=== PATIENT | male | born 1950 | race Caucasian/White ===

== ENCOUNTER → 2017-06-02 | Outpatient (CLI) | payer MEDICARE, BC ==
[~2017-06-02] MED LIST: HYDR50TA6 PO; LISI10TA2 PO; METO-247 PO; prednisone taper
--- NOTE | 2017-06-02 10:33 | KCIC ---
2 views left elbow radiograph 06/02/2017 CLINICAL INDICATION: Left elbow pain and swelling for one week. COMPARISON: None. FINDINGS: No acute fracture or traumatic malalignment. Joint spaces are maintained. No significant joint effusion. IMPRESSION: No acute osseous abnormality. Electronically signed by: Aleks King MD (06/02/2017 10:30 AM) [id number]
== END | disposition home or self-care (01) ==
LOC: KCIC 09:55
PROVIDERS: ATTEND Nurse Practitioner Family
DX: S50.312A Abrasion of left elbow, initial encounter (principal); X58.XXXA Exposure to other specified factors, initial encounter; Y93.89 Activity, other specified; Y92.89 Other specified places as the place of occurrence of the external cause; Y99.8 Other external cause status
CPT/HCPCS: 73070

== ENCOUNTER 2017-06-06 07:16 | Inpatient (IN) | payer MEDICARE ==
[~2017-06-06] VITALS: Ht 182.9 cm; Wt 79.4 kg
[2017-06-06] VITALS (13 sets, daily range): BP systolic 71–130; BP diastolic 48–83
--- NOTE | 2017-06-06 07:19 | PHYS DOC ---
Adult General Chief Complaint Chief Complaint: ABDOMINAL PAIN HPI HPI Patient is a 67 year old patient presenting to the emergency department for evaluation of diffuse abdominal pain that started last and has persisted and worsened. He went to his primary care provider last and they did some blood work and an x-ray of his left elbow and he refused any further treatment including pain shot and tetanus. Reportedly he had swelling in his bilateral ankles in his left elbow but that has since resolved. Patient says that the abdominal pain is diffuse sharp achy and is constant but he has exacerbations where he gets severe. He has had intermittent mix of diarrhea and constipation. Pain intensifies when he is trying to have a bowel movement. He says that he also has pain when he tries to urinate as well. He denies any fevers chills vomiting prior abdominal surgeries black or bloody stools. Patient said that he started having nausea this morning. He appears uncomfortable but is nontoxic. Review of Systems Review of Systems Constitutional: Denies fever or chills [] Eyes: Denies change in visual acuity, redness, or eye pain [] HENT: Denies nasal congestion or sore throat [] Respiratory: Denies cough or shortness of breath [] Cardiovascular: No additional information not addressed in HPI [] GI: + abdominal pain, nausea. No vomiting, bloody stools. + diarrhea [] : + dysuria. No hematuria [] Musculoskeletal: Denies back pain or joint pain [] Integument: Denies rash or skin lesions [] Neurologic: Denies headache, focal weakness or sensory changes [] Current Medications Current Medications Current Medications Medications (Trade) Dose Ordered Sig/[facility] Start Time Stop Time Status Last Admin Dose Admin Morphine Sulfate 5 mg 1X ONCE 06/06/17 08:30 06/06/17 08:31 DC 06/06/17 08:29 5 MG Ondansetron HCl (Zofran) 8 mg 1X ONCE 06/06/17 08:30 06/06/17 08:31 DC 06/06/17 08:23 8 MG Potassium Chloride/Sodium Chloride 1,000 ml @ 250 mls/hr 1X ONCE 06/06/17 08:30 06/06/17 12:29 06/06/17 09:36 250 MLS/HR Potassium Chloride (Klor-Con) 40 meq 1X ONCE 06/06/17 08:30 06/06/17 08:31 DC 06/06/17 09:31 40 MEQ Sodium Chloride 1,000 ml @ 1,000 mls/hr 1X ONCE 06/06/17 08:30 06/06/17 09:29 DC 06/06/17 08:22 1,000 MLS/HR Allergies Allergies Allergies Coded Allergies Type Severity Reaction Last Updated Verified No Known Drug Allergies 06/06/17 No Physical Exam Physical Exam Constitutional: Well developed, well nourished, no acute distress, non-toxic appearance. [] HENT: Normocephalic, atraumatic, bilateral external ears normal, oropharynx moist, no oral exudates, nose normal. [] Eyes: PERRLA, EOMI, conjunctiva normal, no discharge. [] Neck: Normal range of motion, no tenderness, supple, no stridor. [] Cardiovascular:Heart rate regular rhythm, no murmur [] Lungs & Thorax: Bilateral breath sounds clear to auscultation [] Abdomen: Bowel sounds normal, soft, + diffuse tenderness, + guarding. No rebound. no masses, no pulsatile masses. [] Skin: Warm, dry, no erythema, no rash. [] Back: No tenderness, no CVA tenderness. [] Extremities: No tenderness, no cyanosis, no clubbing, ROM intact, no edema. [] Neurologic: Alert and oriented X 3, normal motor function, normal sensory function, no focal deficits noted. [] Current Patient Data Vital Signs Vital Signs Date Time Temp Pulse Resp B/P (MAP) Pulse Ox O2 Delivery O2 Flow Rate FiO2 06/06/17 08:29 18 96 Room Air 06/06/17 07:25 98.3 97 158/74 (102) 98.3 Lab Values Laboratory Tests Test 06/06/17 07:35 06/06/17 07:39 White Blood Count 4.8 x10^3/uL (4.0-11.0) Red Blood Count 3.96 x10^6/uL (4.30-5.70) L Hemoglobin 11.4 g/dL (13.0-17.5) L Hematocrit 34.5 % (39.0-53.0) L Mean Corpuscular Volume 87 fL (79-100) Mean Corpuscular Hemoglobin 29 pg (25-35) Mean Corpuscular Hemoglobin Concent 33 g/dL (31-37) Red Cell Distribution Width 14.0 % (11.5-14.5) Platelet Count 248 x10^3/uL (140-400) Neutrophils (%) (Auto) 91 % (31-73) H Lymphocytes (%) (Auto) 6 % (24-48) L Monocytes (%) (Auto) 3 % (0-9) Eosinophils (%) (Auto) 1 % (0-3) Basophils (%) (Auto) 0 % (0-3) Neutrophils # (Auto) 4.3 x10^3uL (1.8-7.7) Lymphocytes # (Auto) 0.3 x10^3/uL (1.0-4.8) L Monocytes # (Auto) 0.1 x10^3/uL (0.0-1.1) Eosinophils # (Auto) 0.0 x10^3/uL (0.0-0.7) Basophils # (Auto) 0.0 x10^3/uL (0.0-0.2) Platelet Estimate Pending Prothrombin Time 13.9 SEC (11.7-14.0) Prothrombin Time INR 1.1 (0.8-1.1) PTT 33 SEC (24-38) Sodium Level 136 mmol/L (136-145) Potassium Level 2.4 mmol/L (3.5-5.1) *L Chloride Level 98 mmol/L (98-107) Carbon Dioxide Level 27 mmol/L (21-32) Anion Gap 11 (6-14) Blood Urea Nitrogen 28 mg/dL (8-26) H Creatinine 1.5 mg/dL (0.7-1.3) H Estimated GFR (Cockcroft-Gault) 46.8 BUN/Creatinine Ratio 19 (6-20) Glucose Level 116 mg/dL (70-99) H Calcium Level 9.3 mg/dL (8.5-10.1) Magnesium Level 1.6 mg/dL (1.8-2.4) L Total Bilirubin 0.7 mg/dL (0.2-1.0) Aspartate Amino Transferase (AST) 21 U/L (15-37) Alanine Aminotransferase (ALT) 27 U/L (16-63) Alkaline Phosphatase 102 U/L (46-116) Creatine Kinase 22 U/L (39-308) L Troponin I Quantitative < 0.017 ng/mL (0.000-0.055) [id number]-[id number]-Type Natriuretic Peptide 1003 pg/mL (0-124) H Total Protein 6.1 g/dL (6.4-8.2) L Albumin 2.0 g/dL (3.4-5.0) L Albumin/Globulin Ratio 0.5 (1.0-1.7) L Lipase 101 U/L (73-393) Ethyl Alcohol Level < 10 mg/dL (0-10) Urine Collection Type Unknown Urine Color Yellow Urine Clarity Clear Urine pH 6.0 Urine Specific [place] 1.015 Urine Protein 100 mg/dL (NEG-TRACE) Urine Glucose (UA) Negative mg/dL (NEG) Urine Ketones (Stick) Trace mg/dL (NEG) Urine Blood Negative (NEG) Urine Nitrite Negative (NEG) Urine Bilirubin Negative (NEG) Urine Urobilinogen Dipstick 1.0 mg/dL (0.2 mg/dL) Urine Leukocyte Esterase Negative (NEG) Urine RBC 0 /HPF (0-2) Urine WBC Occ /HPF (0-4) Urine Squamous Epithelial Cells Few /LPF Urine Bacteria Few /HPF (0-FEW) Urine Mucus Slight /LPF Urine Opiates Screen Neg (NEG) Urine Methadone Screen Neg (NEG) Urine Barbiturates Neg (NEG) Urine Phencyclidine Screen Neg (NEG) Urine Amphetamine/Methamphetamine Neg (NEG) Urine Benzodiazepines Screen Neg (NEG) Urine Cocaine Screen Neg (NEG) Urine Cannabinoids Screen Pos (NEG) Urine Ethyl Alcohol Neg (NEG) Laboratory Tests 06/06/17 07:35 Laboratory Tests 06/06/17 07:35 EKG EKG [] Radiology/Procedures Radiology/Procedures Indication diffuse abdominal pain. Axial images through the abdomen and pelvis were obtained. 60 cc of Omnipaque 300 was administered intravenously. No oral contrast was administered. No prior imaging of the abdomen or pelvis is available. Preliminary critical results were discussed with Dr. Fernández, in the emergency room, prior to the dictation of this report. There is some minimal volume loss at the lung bases likely reflecting atelectasis. There is moderately extensive pneumoperitoneum. There is a small amount of fluid surrounding the duodenum. The etiology of the pneumoperitoneum is uncertain but a gastric or duodenal perforation is somewhat favored over large bowel perforation. The liver and spleen appear unremarkable and the gallbladder is grossly normal. No pancreatic pathology is seen. No adrenal or significant renal pathology is seen. Parapelvic cysts are noted associated with the left kidney. There is some diverticular disease seen associated with the large bowel. Active inflammation as is not seen. The prostate is minimally enlarged. There is some free fluid in the dependent portion of the pelvis. Air is noted in the mesentery of the pelvis. IMPRESSION: Pneumoperitoneum compatible with a ruptured viscus. The point of rupture is not certain but a gastric rupture or duodenal rupture is slightly favored over a large bowel rupture. Some free fluid is noted in the pelvis. DICTATED and SIGNED BY: AIDEE JULINE MD DATE: 06/06/17926 Course & Med Decision Making Course & Med Decision Making Patient seems to be quite uncomfortable and he has tenderness to palpation in all quadrants and has guarding. Patient will get labs urinalysis CT treat pain nausea and reassess. Patient does have perforated viscus on CT. I spoke to Dr. Viera and he agreed to come see the patient. Patient's potassium and magnesium was started to be replaced in the emergency department. Patient did become more tachycardic over the course of his emergency department stay but never became hypotensive. Will be admitted in guarded condition. Critical care time of 35 minutes Dragon Disclaimer Dragon Disclaimer This electronic medical record was generated, in whole or in part, using a voice recognition dictation system. Departure Departure Impression: Primary Impression: Hypokalemia Additional Impressions: Abdominal pain Hypomagnesemia Elevated brain natriuretic peptide (BNP) level Perforated abdominal viscus Disposition: ADMITTED INPATIENT Admitting Physician: Sandor Molina Condition: GUARDED Referrals: NO PCP (PCP) Problem Qualifiers LOREN FERNÁNDEZ DO Jun 06, 2017 07:19
[2017-06-06 08:11] LABS: BASO % 0 % (0-3); EOS % 1 % (0-3); HEMATOCRIT 34.5 % (39.0-53.0); HEMOGLOBIN 11.4 g/dL (13.0-17.5); LYMPH # 0.3 x10^3/uL (1.0-4.8); LYMPH % 6 % (24-48); MEAN CORPUSCULAR HEMOGLOBIN 29 pg (25-35); MEAN CORPUSCULAR HGB CONC 33 g/dL (31-37); MEAN CORPUSCULAR VOLUME 87 fL (79-100); MONO % 3 % (0-9); NEUT % 91 % (31-73); PLATELET COUNT 248 x10^3/uL (140-400); RED BLOOD COUNT 3.96 x10^6/uL (4.30-5.70); WHITE BLOOD COUNT 4.8 x10^3/uL (4.0-11.0)
[2017-06-06 08:16] LABS: BILIRUBIN,URINE NEGATIVE (NEG); GLUCOSE,URINE NEGATIVE (NEG); NITRITE,URINE NEGATIVE (NEG); PROTEIN,URINE 100 mg/dL (NEG-TRACE)
[2017-06-06 08:17] LABS: BARBITURATES NEG (NEG); BENZODIAZEPINES NEG (NEG); CANNABINOIDS POS (NEG); COCAINE NEG (NEG); METHADONE NEG (NEG); OPIATES NEG (NEG); PHENCYCLIDINE NEG (NEG)
[2017-06-06 08:19] LABS: ALBUMIN/GLOBULIN RATIO 0.5 (1.0-1.7); CALCIUM 9.3 mg/dL (8.5-10.1); CREATININE 1.5 mg/dL (0.7-1.3); GFR 46.8; MAGNESIUM 1.6 mg/dL (1.8-2.4); TOTAL BILIRUBIN 0.7 mg/dL (0.2-1.0); TOTAL PROTEIN 6.1 g/dL (6.4-8.2)
[2017-06-06 08:22] LABS: BACTERIA,URINE FEW /HPF (0-FEW); RBC,URINE 0 /HPF (0-2); SQUAMOUS EPITHELIAL CELL,UR FEW /LPF; WBC,URINE OCC /HPF (0-4)
[2017-06-06 08:26] LABS: INR 1.1 (0.8-1.1); POTASSIUM 2.4 mmol/L (3.5-5.1); PROTHROMBIN TIME PATIENT 13.9 SEC (11.7-14.0)
[2017-06-06] MEDS ORDERED: POTASSIUM CL 40MEQ IN 0.9%NACL 1,000 ML IV ONE (08:30)
[2017-06-06] MEDS ORDERED: ONDANSETRON PF 4 MG/2 ML VIAL. IV ONE (08:30)
[2017-06-06] MEDS ORDERED: POTASSIUM CHLORIDE 20 MEQ TABLET.ER. PO ONE (08:30)
[2017-06-06] MEDS ORDERED: IV NORMAL SALINE 1000ML BAG 1,000 ML IV ONE ×2 (08:30→23:00)
[2017-06-06] MEDS ORDERED: MORPHINE SULFATE 10 MG/ML VIAL. IV ONE (08:30)
[2017-06-06] MEDS ORDERED: MAGNESIUM OXIDE 400 MG TABLET PO STA (08:37)
[2017-06-06] MEDS ORDERED: IOHEXOL 300 MG/ML 75 ML VIAL IV ONE (08:45)
[2017-06-06] MEDS ORDERED: CONTRAST GIVEN MC PRN (08:45)
[2017-06-06] MEDS ORDERED: levOFLOXacin PER PHARMACY. MC PRN (09:30)
--- NOTE | 2017-06-06 09:35 | RAD ---
Indication diffuse abdominal pain. Axial images through the abdomen and pelvis were obtained. 60 cc of Omnipaque 300 was administered intravenously. No oral contrast was administered. No prior imaging of the abdomen or pelvis is available. Preliminary critical results were discussed with Dr. Guadarrama, in the emergency room, prior to the dictation of this report. There is some minimal volume loss at the lung bases likely reflecting atelectasis. There is moderately extensive pneumoperitoneum. There is a small amount of fluid surrounding the duodenum. The etiology of the pneumoperitoneum is uncertain but a gastric or duodenal perforation is somewhat favored over large bowel perforation. The liver and spleen appear unremarkable and the gallbladder is grossly normal. No pancreatic pathology is seen. No adrenal or significant renal pathology is seen. Parapelvic cysts are noted associated with the left kidney. There is some diverticular disease seen associated with the large bowel. Active inflammation as is not seen. The prostate is minimally enlarged. There is some free fluid in the dependent portion of the pelvis. Air is noted in the mesentery of the pelvis. IMPRESSION: Pneumoperitoneum compatible with a ruptured viscus. The point of rupture is not certain but a gastric rupture or duodenal rupture is slightly favored over a large bowel rupture. Some free fluid is noted in the pelvis.
[2017-06-06] MEDS ORDERED: fentaNYL PF VIAL 250 MCG/5 ML VIAL ONE (10:28)
[2017-06-06] MEDS ORDERED: ROCURONIUM 100 MG/10 ML VIAL. ONE (10:28)
[2017-06-06] MEDS ORDERED: LIDOCAINE 2% PF Vial for OR 5 ML VIAL. ONE (10:32)
[2017-06-06] MEDS ORDERED: PROPOFOL 20 ML IV ONE (10:32)
[2017-06-06] MEDS ORDERED: ONDANSETRON PF 4 MG/2 ML VIAL. ONE (10:33)
[2017-06-06] MEDS ORDERED: DEXAMETHASONE SOD PHOS 20 MG/5 ML VIAL. ONE (10:33)
--- NOTE | 2017-06-06 10:53 | EKG ---
[facility] [address] [place] [address] Test Date: 2017-06-06 Test Time: 10:46:40 Pat Name: GOPI RODRIGUEZ Department: Room: [facility] Gender: M Polysomnograph Tech: : 1950 Requested By: KRISTINE VENTURA Order Number: [id number] Reading MD: Kayla Mantilla Measurements Intervals [place] Rate: 127 P: CO: QRS: -15 QRSD: 88 T: 11 QT: 350 QTc: 515 Interpretive Statements ATRIAL FIBRILLATION LEFTWARD AXIS NON SPECIFIC ST T WAVE CHANGES ABNORMAL ECG Electronically Signed On 06-06-2017 19:02:39 CDT by Kayla Mantilla
[2017-06-06 11:15] LABS: PLT ESTIMATE ADEQUATE (ADEQUATE)
[2017-06-06] MEDS ORDERED: MULTIVIT INFUSN,ADULT 4,VIT K 10 ML, FOLIC ACID 1 MG, THIAMINE 100 MG in IV RINGERS,LAC... IV ONE (11:30)
[2017-06-06] MEDS ORDERED: IV RINGERS,LACTATED 1000ML 1,000 ML IV SCH (11:39)
[2017-06-06] MEDS ORDERED: PROCHLORPERAZINE 10 MG/2 ML VIAL. IV PRN (11:45)
[2017-06-06] MEDS ORDERED: fentaNYL PF VIAL 100 MCG/2 ML VIAL IV PRN ×2 (11:45)
[2017-06-06] MEDS ORDERED: LIDOCAINE 1% PF 2 ML VIAL. ID PRN (11:45)
[2017-06-06] MEDS ORDERED: HYDROmorphone 2 MG/ML VIAL IV PRN (11:45)
--- NOTE | 2017-06-06 11:47 | PDOC2 ---
CARDIAC CONSULT DATE OF CONSULT Date of Consult DATE: 06/06/17 TIME: 11:38 REASON FOR CONSULT Reason for Consult: atrial fib REFERRING PHYSICIAN Referring Physician: Dr. Allred SOURCE Source: Chart review HISTORY OF PRESENT ILLNESS HISTORY OF PRESENT ILLNESS 67 year old with abdominal pain since last . Imaging suggests perforation. Found to be in atrial fibrillation, new onset, in the setting of hypokalemia and hypomagnesemia. Cardiology evaluation requested prior to OR. Patient converted to NSR about the time I walked to the bedside. Denies CP or palpitations. No dyspnea on exertion but with lower extremity edema recently. Reason for Visit: afib PAST MEDICAL HISTORY Cardiovascular: HTN, Hyperlipidemia, Other (+ coronary calcium score) PAST SURGICAL HISTORY Past Surgical History: Other (unknown) FAMILY HISTORY Family History: Heart Disease (heart failure in father) SOCIAL HISTORY Smoke: 2 packs per day ALCOHOL: heavy (3+ glasses of wine per day) CURRENT MEDICATIONS CURRENT MEDICATIONS Current Medications Medications (Trade) Dose Ordered Sig/Deng Route PRN Reason Start Time Stop Time Status Last Admin Dose Admin Sodium Chloride 1,000 ml @ 1,000 mls/hr 1X ONCE IV 06/06/17 08:30 06/06/17 09:29 DC 06/06/17 08:22 Ondansetron HCl (Zofran) 8 mg 1X ONCE IV 06/06/17 08:30 06/06/17 08:31 DC 06/06/17 08:23 Morphine Sulfate 5 mg 1X ONCE IV 06/06/17 08:30 06/06/17 08:31 DC 06/06/17 08:29 Potassium Chloride (Klor-Con) 40 meq 1X ONCE PO 06/06/17 08:30 06/06/17 08:31 DC 06/06/17 09:31 Potassium Chloride/Sodium Chloride 1,000 ml @ 250 mls/hr 1X ONCE IV 06/06/17 08:30 06/06/17 12:29 06/06/17 09:36 Iohexol (Omnipaque 300 Mg/ml) 60 ml 1X ONCE IV 06/06/17 08:45 06/06/17 08:46 DC 06/06/17 08:51 Magnesium Oxide (Magnesium Oxide) 800 mg 1X STAT PO 06/06/17 08:37 06/06/17 08:40 DC 06/06/17 09:31 Metronidazole 100 ml @ 100 mls/hr 1X ONCE IV 06/06/17 09:30 06/06/17 10:29 DC 06/06/17 10:00 Levofloxacin/ Dextrose 100 ml @ 100 mls/hr Q24H IV 06/07/17 10:00 06/06/17 11:36 ALLERGIES ALLERGIES: Coded Allergies: No Known Drug Allergies (Unverified , 06/06/17) ROS General: YES: Fatigue, Malaise PSYCHOLOGICAL ROS: No: Anxiety, Behavioral Disorder, Concentration difficultie , Decreased libido, Depression, Disorientation, Hallucinations, Hostility, Irritablity, Memory difficulties, Mood Swings, Obsessive thoughts, Physical abuse, Sexual abuse, Sleep disturbances, Suicidal ideation, Other Eyes: No Blurry vision, No Decreased vision, No Double vision, No Dry eyes, No Excessive tearing, No Eye Pain, No Itchy Eyes, No Loss of vision, No Photophobia , No Scotomata, No Uses contacts, No Uses glasses, No Other HEENT: No: Heacaches, Visual Changes, Hearing change, Nasal congestion, Nasal discharge, Oral lesions, Sinus pain, Sore Throat, Epistaxis, Sneezing, Snoring, Tinnitus, Vertigo, Vocal changes, Other ALLERGY AND IMMUNOLOGY: No: Hives, Insect Bite Sensitivity, Itchy/Watery Eyes, Nasal Congestion, Post Nasal Drip, Seasonal Allergies, Other Hematological and Lymphatic: No: Bleeding Problems, Blood Clots, Blood Transfusions, Brusing, Night Sweats, Pallor, Swollen Lymph Nodes, Other ENDOCRINE: No: Breast Changes, Galactorrhea, Hair Pattern Changes, Hot Flashes , Malaise/lethargy, Mood Swings, Palpitations, Polydipsia/polyuria, Skin Changes , Temperature Intolerance, Unexpected Weight Changes, Other Respiratory: No: Cough, Hemoptysis, Orthopnea, Pleuritic Pain, Shortness of breath, SOB with excertion, Sputum Changes, Stridor, Tachypnea, Wheezing, Other Cardiovascular: yes Edema, No Chest Pain, No Palpitations, No Orthopnea, No Paroxysmal Noc. Dyspnea, No Lt Headedness, No Other Gastrointestinal: Yes Abdominal Pain Genitourinary: No Dysuria, No Frequency, No Incontinence, No Hematuria, No Retention, No Discharge, No Urgency, No Pain, No Flank Pain, No Other, No , No , No , No , No , No , No Musculoskeletal: No Gait Disturbance, No Joint Pain, No Joint Stiffness, No Joint Swelling, No Muscle Pain, No Muscular Weakness, No Pain In:, No Swelling In:, No Other Neurological: No Behavorial Changes, No Bowel/Bladder ControlChng, No Confusion , No Dizziness, No Gait Disturbance, No Headaches, No Impaired Coord/balance, No Memory Loss, No Numbness/Tingling, No Seizures, No Speech Problems, No Tremors, No Visual Changes, No Weakness, No Other PHYSICAL EXAM General: Alert, Oriented X3, Cooperative HEENT: Atraumatic, PERRLA Lungs: Clear to auscultation Heart: Regular rate, Normal S1, Normal S2, No murmurs Extremities: No edema, Normal pulses Skin: No breakdown Neuro: Normal speech Psych/Mental Status: Mental status NL MUSCULOSKELETAL: Osteoarthritic changes both hands VITALS VITALS Vital Signs Date Time Temp Pulse Resp B/P (MAP) Pulse Ox O2 Delivery O2 Flow Rate FiO2 06/06/17 10:21 98.5 133 20 109/63 98 Nasal Cannula 2 98.5 LABS Lab: Laboratory Tests Test 06/06/17 07:35 06/06/17 07:39 White Blood Count 4.8 x10^3/uL (4.0-11.0) Red Blood Count 3.96 x10^6/uL (4.30-5.70) Hemoglobin 11.4 g/dL (13.0-17.5) Hematocrit 34.5 % (39.0-53.0) Mean Corpuscular Volume 87 fL (79-100) Mean Corpuscular Hemoglobin 29 pg (25-35) Mean Corpuscular Hemoglobin Concent 33 g/dL (31-37) Red Cell Distribution Width 14.0 % (11.5-14.5) Platelet Count 248 x10^3/uL (140-400) Neutrophils (%) (Auto) 91 % (31-73) Lymphocytes (%) (Auto) 6 % (24-48) Monocytes (%) (Auto) 3 % (0-9) Eosinophils (%) (Auto) 1 % (0-3) Basophils (%) (Auto) 0 % (0-3) Neutrophils # (Auto) 4.3 x10^3uL (1.8-7.7) Lymphocytes # (Auto) 0.3 x10^3/uL (1.0-4.8) Monocytes # (Auto) 0.1 x10^3/uL (0.0-1.1) Eosinophils # (Auto) 0.0 x10^3/uL (0.0-0.7) Basophils # (Auto) 0.0 x10^3/uL (0.0-0.2) Segmented Neutrophils % 79 % (35-66) Band Neutrophils % 6 % (0-9) Lymphocytes % 12 % (24-48) Monocytes % 3 % (0-10) Platelet Estimate Adequate (ADEQUATE) Prothrombin Time 13.9 SEC (11.7-14.0) Prothromb Time International Ratio 1.1 (0.8-1.1) Activated Partial Thromboplast Time 33 SEC (24-38) Sodium Level 136 mmol/L (136-145) Potassium Level 2.4 mmol/L (3.5-5.1) Chloride Level 98 mmol/L (98-107) Carbon Dioxide Level 27 mmol/L (21-32) Anion Gap 11 (6-14) Blood Urea Nitrogen 28 mg/dL (8-26) Creatinine 1.5 mg/dL (0.7-1.3) Estimated GFR (Cockcroft-Gault) 46.8 BUN/Creatinine Ratio 19 (6-20) Glucose Level 116 mg/dL (70-99) Calcium Level 9.3 mg/dL (8.5-10.1) Magnesium Level 1.6 mg/dL (1.8-2.4) Total Bilirubin 0.7 mg/dL (0.2-1.0) Aspartate Amino Transf (AST/SGOT) 21 U/L (15-37) Alanine Aminotransferase (ALT/SGPT) 27 U/L (16-63) Alkaline Phosphatase 102 U/L (46-116) Creatine Kinase 22 U/L (39-308) Troponin I Quantitative < 0.017 ng/mL (0.000-0.055) QD-Mpt-U-Type Natriuretic Peptide 1003 pg/mL (0-124) Total Protein 6.1 g/dL (6.4-8.2) Albumin 2.0 g/dL (3.4-5.0) Albumin/Globulin Ratio 0.5 (1.0-1.7) Lipase 101 U/L (73-393) Ethyl Alcohol Level < 10 mg/dL (0-10) Urine Collection Type Unknown Urine Color Yellow Urine Clarity Clear Urine pH 6.0 Urine Specific [place] 1.015 Urine Protein 100 mg/dL (NEG-TRACE) Urine Glucose (UA) Negative mg/dL (NEG) Urine Ketones (Stick) Trace mg/dL (NEG) Urine Blood Negative (NEG) Urine Nitrite Negative (NEG) Urine Bilirubin Negative (NEG) Urine Urobilinogen Dipstick 1.0 mg/dL (0.2 mg/dL) Urine Leukocyte Esterase Negative (NEG) Urine RBC 0 /HPF (0-2) Urine WBC Occ /HPF (0-4) Urine Squamous Epithelial Cells Few /LPF Urine Bacteria Few /HPF (0-FEW) Urine Mucus Slight /LPF Urine Opiates Screen Neg (NEG) Urine Methadone Screen Neg (NEG) Urine Barbiturates Neg (NEG) Urine Phencyclidine Screen Neg (NEG) Urine Amphetamine/Methamphetamine Neg (NEG) Urine Benzodiazepines Screen Neg (NEG) Urine Cocaine Screen Neg (NEG) Urine Cannabinoids Screen Pos (NEG) Urine Ethyl Alcohol Neg (NEG) IMAGES IMAGES CT abd/pelvis: IMPRESSION: Pneumoperitoneum compatible with a ruptured viscus. The point of rupture is not certain but a gastric rupture or duodenal rupture is slightly favored over a large bowel rupture. Some free fluid is noted in the pelvis. EKG EKG atrial fib ASSESSMENT/PLAN ASSESSMENT/PLAN 1. new onset atrial fib in the setting of K of 2.4 and Mg of 1.6; being replaced echo post-operatively check TSH needs monitored bed post-operatively 2. +coronary calcium score reports recent adjustment in meds may benefit from outpatient evaluation 3. ETOH abuse may be contributing factor in electrolyte imbalance 4. perf bowel may proceed with surgery; back in SR; will evaluate further post-operatively Problems: AKUA ESTRADA CRANE MAN Jun 06, 2017 11:47
[2017-06-06] MEDS ORDERED: 0.9 % SODIUM CHLORIDE 50 ML VIAL. IJ ONE (11:58)
[2017-06-06] MEDS ORDERED: PHENYLEPHRINE 10 MG/ML VIAL. ONE (11:58)
[2017-06-06] MEDS ORDERED: NEOSTIGMINE METHYLSULFATE 5 MG/5 ML SYRINGE. ONE (13:52)
[2017-06-06] MEDS ORDERED: SEVOFLURANE > 120 MINUTES. IH ONE (13:52)
[2017-06-06] MEDS ORDERED: GLYCOPYRROLATE 1 MG/5 ML VIAL. ONE (13:52)
--- NOTE | 2017-06-06 14:07 | RAD ---
Exam performed: X-ray abdomen KUB. Clinical Indication: Laparotomy with sigmoid resection, incorrect count in OR Date of Service: None available Comparison: CT abdomen pelvis from 06/06/17 Findings: Supine radiograph of the abdomen and pelvis reveals no evidence of metallic foreign body. There is a drainage catheter seen in the pelvis. The visualized osseous structures appear unremarkable. Impression: No evidence of metallic foreign body seen
[2017-06-06] MEDS ORDERED: fentaNYL PF VIAL 100 MCG/2 ML VIAL ONE (14:18)
[2017-06-06] MEDS ORDERED: SURGICEL HEMOSTAT 4X8 EACH. ONE (14:19)
[2017-06-06] MEDS ORDERED: ONDANSETRON PF 4 MG/2 ML VIAL. IV PRN ×2 (14:30→15:45)
[2017-06-06] MEDS ORDERED: diphenhydrAMINE 50 MG/ML VIAL IV PRN (14:30)
[2017-06-06] MEDS ORDERED: 0.9 % SODIUM CHLORIDE 10 ML DISP.SYRIN. IV PRN (14:30)
[2017-06-06] MEDS ORDERED: RACEPINEPHRINE 2.25% 0.5 ML NEBU. ONE (14:35)
[2017-06-06] MEDS ORDERED: RACEPINEPHRINE 2.25% 0.5 ML NEBU. NEB ONE (14:36)
[2017-06-06] MEDS ORDERED: PROPOFOL 50 ML IV ONE ×3 (14:38→15:15)
[2017-06-06] MEDS ORDERED: SUCCINYLCHOLINE 200 MG/10 ML VIAL. ONE (14:40)
[2017-06-06] MEDS ORDERED: MIDAZOLAM HCL/PF 2 MG/2 ML VIAL. ONE (14:48)
[2017-06-06] MEDS ORDERED: ENOXAPARIN 40 MG/0.4 ML SYRINGE. SQ SCH (15:00)
[2017-06-06] MEDS ORDERED: DEXAMETHASONE SOD PHOS 20 MG/5 ML VIAL. IV ONE (15:00)
[2017-06-06] MEDS ORDERED: DEXAMETHASONE SOD PHOS 4 MG/ML VIAL ONE (15:05)
[2017-06-06 15:12] LABS: CALCIUM 8.3 mg/dL (8.5-10.1); CREATININE 1.1 mg/dL (0.7-1.3); POTASSIUM 3.6 mmol/L (3.5-5.1)
[2017-06-06] MEDS ORDERED: MIDAZOLAM HCL/PF 2 MG/2 ML VIAL. IV ONE (15:15)
[2017-06-06] MEDS ORDERED: SUCCINYLCHOLINE 200 MG/10 ML VIAL. IV ONE (15:15)
[2017-06-06] MEDS ORDERED: PROPOFOL 100 ML IV PRN (15:15)
[2017-06-06] MEDS: MORPHINE SULFATE 2 MG/ML DISP.SYRIN. IV PRN ×2 (15:27→15:38)
--- NOTE | 2017-06-06 15:41 | PDOC1 ---
History and Physical Date of Admission Date of Admission 06/06/17 Identification/Chief Complaint Chief Complaint abd pain Problems: Source Source: Chart review, Patient History of Present Illness History of Present Illness Patient is a 67 year old patient presenting to the emergency department for abd pain for 3 days. Pt started to have lower abd pain since last , no N/V, BM has some diarrhea. He has been on some pain meds including ibuprofen, oxycodone for his sciatica and neuropathy, and took a lot recently and the abd pain was intermittent,sharp, moderate, no radiation. The abd pain got worse last night 06/07 and then came to ER. as per ERP, He went to his primary care provider last and they did some blood work and an x-ray of his left elbow and he refused any further treatment including pain shot and tetanus. Reportedly he had swelling in his bilateral ankles in his left elbow but that has since resolved. Denies fever, but had chills at home, no cough, sob, chest pain. drinks 3 glassed of "white wine" daily, at least 100cc daily. abd CT showed Pneumoperitoneum compatible with a ruptured viscus.. new onset Afib when i saw him in ER. Past Medical History Cardiovascular: HTN, Hyperlipidemia, Other (+ coronary calcium score) Past Surgical History Past Surgical History: Other (unknown) Family History Family History: Heart Disease (heart failure in father) Social History Smoke: No ALCOHOL: heavy (3+ glasses of wine per day) Current Problem List Problem List Problems Medical Problems: (1) Abdominal pain Status: Acute (2) Elevated brain natriuretic peptide (BNP) level Status: Acute (3) Hypomagnesemia Status: Acute (4) Perforated abdominal viscus Status: Acute Current Medications Current Medications Current Medications Medications (Trade) Dose Ordered Sig/Deng Start Time Stop Time Status Last Admin Dose Admin Cellulose 1 each STK-MED ONCE 06/06/17 14:19 06/06/17 15:20 DC 06/06/17 13:35 1 EACH Dexamethasone Sodium Phosphate (Decadron) 4 mg STK-MED ONCE 06/06/17 15:05 06/06/17 15:06 DC Diphenhydramine HCl (Benadryl) 25 mg PRN Q6HRS PRN 06/06/17 14:30 Enoxaparin Sodium (Lovenox 40mg Syringe) 40 mg Q24H 06/06/17 15:00 Epinephrine (S2 Racepinephrine) 0.5 ml 1X ONCE 06/06/17 14:36 06/06/17 14:43 DC 06/06/17 14:43 0.5 ML Fentanyl Citrate (Fentanyl 2ml Vial) 100 mcg STK-MED ONCE 06/06/17 14:18 06/06/17 14:19 DC Fentanyl Citrate (Fentanyl 5ml Vial) 250 mcg STK-MED ONCE 06/06/17 10:28 06/06/17 10:29 DC Glycopyrrolate (Robinul) 1 mg STK-MED ONCE 06/06/17 13:52 06/06/17 13:53 DC Hydromorphone HCl 30 ml @ 0 mls/hr CONT PRN PRN 06/06/17 14:30 Hydromorphone HCl (Dilaudid) 0.5 mg PRN Q10MIN PRN 06/06/17 11:45 06/07/17 11:44 Info (Do NOT chart on this entry -- for MONITORING) 1 each PRN DAILY PRN 06/06/17 08:45 06/08/17 08:44 Iohexol (Omnipaque 300 Mg/ml) 60 ml 1X ONCE 06/06/17 08:45 06/06/17 08:46 DC 06/06/17 08:51 60 ML Levofloxacin/ Dextrose 100 ml @ 100 mls/hr Q24H 06/07/17 10:00 06/06/17 11:36 100 MLS/HR Levofloxacin/ Dextrose (Levaquin Per Pharmacy) 1 each PRN DAILY PRN 06/06/17 09:30 Lidocaine HCl (Lidocaine Pf 2% Vial) 5 ml STK-MED ONCE 06/06/17 10:32 06/06/17 10:33 DC Lidocaine HCl (Xylocaine-Mpf 1% Vial) 2 ml 1X PRN PRN 06/06/17 11:45 06/07/17 11:44 Magnesium Oxide (Magnesium Oxide) 800 mg 1X STAT 06/06/17 08:37 06/06/17 08:40 DC 06/06/17 09:31 800 MG Metronidazole 100 ml @ 100 mls/hr 1X ONCE 06/06/17 09:30 06/06/17 10:29 DC 06/06/17 10:00 100 MLS/HR Midazolam HCl (Versed) 2 mg 1X ONCE 06/06/17 15:15 06/06/17 15:16 DC Morphine Sulfate 1 mg PRN Q10MIN PRN 06/06/17 11:45 06/07/17 11:44 Multivitamins 10 ml/Folic Acid 1 mg/Thiamine HCl 100 mg/Ringer's Solution 1,011.2 ml @ 1,000 mls/ hr 1X ONCE 06/06/17 11:30 06/06/17 12:30 DC Neostigmine Methylsulfate 5 mg STK-MED ONCE 06/06/17 13:52 06/06/17 13:53 DC Ondansetron HCl (Zofran) 4 mg PRN Q6HRS PRN 06/06/17 14:30 Phenylephrine HCl (Pedro-Synephrine Inj) 10 mg STK-MED ONCE 06/06/17 11:58 06/06/17 11:59 DC Potassium Chloride/Sodium Chloride 1,000 ml @ 100 mls/hr Q10H 06/06/17 15:00 Potassium Chloride (Klor-Con) 40 meq 1X ONCE 06/06/17 08:30 06/06/17 08:31 DC 06/06/17 09:31 40 MEQ Prochlorperazine Edisylate (Compazine) 5 mg PACU PRN PRN 06/06/17 11:45 06/07/17 11:44 Propofol 50 ml @ 0 mls/hr 1X ONCE 06/06/17 15:15 06/06/17 15:16 DC 06/06/17 15:02 6.8 MLS/HR Ringer's Solution 1,000 ml @ 30 mls/hr Q24H 06/06/17 11:39 06/06/17 23:38 Rocuronium Marshall (Zemuron) 100 mg STK-MED ONCE 06/06/17 10:28 06/06/17 10:29 DC Sevoflurane (Ultane) 90 ml STK-MED ONCE 06/06/17 13:52 06/06/17 13:53 DC Sodium Chloride (Normal Saline Flush) 3 ml QSHIFT PRN 06/06/17 14:30 Sodium Chloride (Sodium Chloride) 50 ml STK-MED ONCE 06/06/17 11:58 06/06/17 11:59 DC Succinylcholine Chloride (Anectine) 200 mg 1X ONCE 06/06/17 15:15 06/06/17 15:16 DC Allergies Allergies Allergies Coded Allergies Type Severity Reaction Last Updated Verified No Known Drug Allergies 06/06/17 No ROS Review of System CONSTITUTIONAL: No fever or chills EYES: No recent changes SKIN: No rash or itching CARDIOVASCULAR: No chest pain, syncope, palpitations, or edema RESPIRATORY: No SOB or cough GASTROINTESTINAL: No nausea, vomiting or abdominal pain NEUROLOGICAL: No headaches or weakness ENDOCRINE: No cold or heat intolerance GENITOURINARY: No urgency or frequency of urination MUSCULOSKELETAL: No back pain or joint pain LYMPHATICS: No enlarged lymph nodes PSYCHIATRIC: No anxiety or depression Physical Exam Physical Exam GEN.: No apparent distress. Alert and oriented. HEENT: Head is normocephalic, atraumatic NECK: Supple. LUNGS: Clear to auscultation. HEART: tachy, irregular, S1, S2 present. Peripheral pulses intact ABDOMEN: Soft, decreased bowel sounds. diffuse abd pain with severe tenderness, + rebound and guarding. EXTREMITIES: Without any cyanosis. NEUROLOGIC: Normal speech, normal tone PSYCHIATRIC: Normal affect, normal mood. SKIN: No ulcerations Vitals Vitals Vital Signs Date Time Temp Pulse Resp B/P (MAP) Pulse Ox O2 Delivery O2 Flow Rate FiO2 06/06/17 15:22 97.3 113 14 157/82 100 Ventilator 97.3 06/06/17 10:21 2 Labs Labs Laboratory Tests Test 06/06/17 07:00 06/06/17 07:35 06/06/17 07:39 06/06/17 14:42 Thyroid Stimulating Hormone (TSH) 2.433 uIU/mL (0.358-3.74) White Blood Count 4.8 x10^3/uL (4.0-11.0) Red Blood Count 3.96 x10^6/uL (4.30-5.70) Hemoglobin 11.4 g/dL (13.0-17.5) Hematocrit 34.5 % (39.0-53.0) Mean Corpuscular Volume 87 fL (79-100) Mean Corpuscular Hemoglobin 29 pg (25-35) Mean Corpuscular Hemoglobin Concent 33 g/dL (31-37) Red Cell Distribution Width 14.0 % (11.5-14.5) Platelet Count 248 x10^3/uL (140-400) Neutrophils (%) (Auto) 91 % (31-73) Lymphocytes (%) (Auto) 6 % (24-48) Monocytes (%) (Auto) 3 % (0-9) Eosinophils (%) (Auto) 1 % (0-3) Basophils (%) (Auto) 0 % (0-3) Neutrophils # (Auto) 4.3 x10^3uL (1.8-7.7) Lymphocytes # (Auto) 0.3 x10^3/uL (1.0-4.8) Monocytes # (Auto) 0.1 x10^3/uL (0.0-1.1) Eosinophils # (Auto) 0.0 x10^3/uL (0.0-0.7) Basophils # (Auto) 0.0 x10^3/uL (0.0-0.2) Segmented Neutrophils % 79 % (35-66) Band Neutrophils % 6 % (0-9) Lymphocytes % 12 % (24-48) Monocytes % 3 % (0-10) Platelet Estimate Adequate (ADEQUATE) Prothrombin Time 13.9 SEC (11.7-14.0) Prothromb Time International Ratio 1.1 (0.8-1.1) Activated Partial Thromboplast Time 33 SEC (24-38) Sodium Level 136 mmol/L (136-145) 139 mmol/L (136-145) Potassium Level 2.4 mmol/L (3.5-5.1) 3.6 mmol/L (3.5-5.1) Chloride Level 98 mmol/L (98-107) 105 mmol/L (98-107) Carbon Dioxide Level 27 mmol/L (21-32) 26 mmol/L (21-32) Anion Gap 11 (6-14) 8 (6-14) Blood Urea Nitrogen 28 mg/dL (8-26) 24 mg/dL (8-26) Creatinine 1.5 mg/dL (0.7-1.3) 1.1 mg/dL (0.7-1.3) Estimated GFR (Cockcroft-Gault) 46.8 67.0 BUN/Creatinine Ratio 19 (6-20) Glucose Level 116 mg/dL (70-99) 129 mg/dL (70-99) Calcium Level 9.3 mg/dL (8.5-10.1) 8.3 mg/dL (8.5-10.1) Magnesium Level 1.6 mg/dL (1.8-2.4) Total Bilirubin 0.7 mg/dL (0.2-1.0) Aspartate Amino Transf (AST/SGOT) 21 U/L (15-37) Alanine Aminotransferase (ALT/SGPT) 27 U/L (16-63) Alkaline Phosphatase 102 U/L (46-116) Creatine Kinase 22 U/L (39-308) Troponin I Quantitative < 0.017 ng/mL (0.000-0.055) [id number]-Mqt-[id number]-Type Natriuretic Peptide 1003 pg/mL (0-124) Total Protein 6.1 g/dL (6.4-8.2) Albumin 2.0 g/dL (3.4-5.0) Albumin/Globulin Ratio 0.5 (1.0-1.7) Lipase 101 U/L (73-393) Ethyl Alcohol Level < 10 mg/dL (0-10) Urine Collection Type Unknown Urine Color Yellow Urine Clarity Clear Urine pH 6.0 Urine Specific [place] 1.015 Urine Protein 100 mg/dL (NEG-TRACE) Urine Glucose (UA) Negative mg/dL (NEG) Urine Ketones (Stick) Trace mg/dL (NEG) Urine Blood Negative (NEG) Urine Nitrite Negative (NEG) Urine Bilirubin Negative (NEG) Urine Urobilinogen Dipstick 1.0 mg/dL (0.2 mg/dL) Urine Leukocyte Esterase Negative (NEG) Urine RBC 0 /HPF (0-2) Urine WBC Occ /HPF (0-4) Urine Squamous Epithelial Cells Few /LPF Urine Bacteria Few /HPF (0-FEW) Urine Mucus Slight /LPF Urine Opiates Screen Neg (NEG) Urine Methadone Screen Neg (NEG) Urine Barbiturates Neg (NEG) Urine Phencyclidine Screen Neg (NEG) Urine Amphetamine/Methamphetamine Neg (NEG) Urine Benzodiazepines Screen Neg (NEG) Urine Cocaine Screen Neg (NEG) Urine Cannabinoids Screen Pos (NEG) Urine Ethyl Alcohol Neg (NEG) Laboratory Tests Test 06/06/17 07:00 06/06/17 07:35 06/06/17 07:39 06/06/17 14:42 Thyroid Stimulating Hormone (TSH) 2.433 uIU/mL (0.358-3.74) White Blood Count 4.8 x10^3/uL (4.0-11.0) Red Blood Count 3.96 x10^6/uL (4.30-5.70) Hemoglobin 11.4 g/dL (13.0-17.5) Hematocrit 34.5 % (39.0-53.0) Mean Corpuscular Volume 87 fL (79-100) Mean Corpuscular Hemoglobin 29 pg (25-35) Mean Corpuscular Hemoglobin Concent 33 g/dL (31-37) Red Cell Distribution Width 14.0 % (11.5-14.5) Platelet Count 248 x10^3/uL (140-400) Neutrophils (%) (Auto) 91 % (31-73) Lymphocytes (%) (Auto) 6 % (24-48) Monocytes (%) (Auto) 3 % (0-9) Eosinophils (%) (Auto) 1 % (0-3) Basophils (%) (Auto) 0 % (0-3) Neutrophils # (Auto) 4.3 x10^3uL (1.8-7.7) Lymphocytes # (Auto) 0.3 x10^3/uL (1.0-4.8) Monocytes # (Auto) 0.1 x10^3/uL (0.0-1.1) Eosinophils # (Auto) 0.0 x10^3/uL (0.0-0.7) Basophils # (Auto) 0.0 x10^3/uL (0.0-0.2) Segmented Neutrophils % 79 % (35-66) Band Neutrophils % 6 % (0-9) Lymphocytes % 12 % (24-48) Monocytes % 3 % (0-10) Platelet Estimate Adequate (ADEQUATE) Prothrombin Time 13.9 SEC (11.7-14.0) Prothromb Time International Ratio 1.1 (0.8-1.1) Activated Partial Thromboplast Time 33 SEC (24-38) Sodium Level 136 mmol/L (136-145) 139 mmol/L (136-145) Potassium Level 2.4 mmol/L (3.5-5.1) 3.6 mmol/L (3.5-5.1) Chloride Level 98 mmol/L (98-107) 105 mmol/L (98-107) Carbon Dioxide Level 27 mmol/L (21-32) 26 mmol/L (21-32) Anion Gap 11 (6-14) 8 (6-14) Blood Urea Nitrogen 28 mg/dL (8-26) 24 mg/dL (8-26) Creatinine 1.5 mg/dL (0.7-1.3) 1.1 mg/dL (0.7-1.3) Estimated GFR (Cockcroft-Gault) 46.8 67.0 BUN/Creatinine Ratio 19 (6-20) Glucose Level 116 mg/dL (70-99) 129 mg/dL (70-99) Calcium Level 9.3 mg/dL (8.5-10.1) 8.3 mg/dL (8.5-10.1) Magnesium Level 1.6 mg/dL (1.8-2.4) Total Bilirubin 0.7 mg/dL (0.2-1.0) Aspartate Amino Transf (AST/SGOT) 21 U/L (15-37) Alanine Aminotransferase (ALT/SGPT) 27 U/L (16-63) Alkaline Phosphatase 102 U/L (46-116) Creatine Kinase 22 U/L (39-308) Troponin I Quantitative < 0.017 ng/mL (0.000-0.055) MW-Ilm-R-Type Natriuretic Peptide 1003 pg/mL (0-124) Total Protein 6.1 g/dL (6.4-8.2) Albumin 2.0 g/dL (3.4-5.0) Albumin/Globulin Ratio 0.5 (1.0-1.7) Lipase 101 U/L (73-393) Ethyl Alcohol Level < 10 mg/dL (0-10) Urine Collection Type Unknown Urine Color Yellow Urine Clarity Clear Urine pH 6.0 Urine Specific [place] 1.015 Urine Protein 100 mg/dL (NEG-TRACE) Urine Glucose (UA) Negative mg/dL (NEG) Urine Ketones (Stick) Trace mg/dL (NEG) Urine Blood Negative (NEG) Urine Nitrite Negative (NEG) Urine Bilirubin Negative (NEG) Urine Urobilinogen Dipstick 1.0 mg/dL (0.2 mg/dL) Urine Leukocyte Esterase Negative (NEG) Urine RBC 0 /HPF (0-2) Urine WBC Occ /HPF (0-4) Urine Squamous Epithelial Cells Few /LPF Urine Bacteria Few /HPF (0-FEW) Urine Mucus Slight /LPF Urine Opiates Screen Neg (NEG) Urine Methadone Screen Neg (NEG) Urine Barbiturates Neg (NEG) Urine Phencyclidine Screen Neg (NEG) Urine Amphetamine/Methamphetamine Neg (NEG) Urine Benzodiazepines Screen Neg (NEG) Urine Cocaine Screen Neg (NEG) Urine Cannabinoids Screen Pos (NEG) Urine Ethyl Alcohol Neg (NEG) VTE Prophylaxis Ordered VTE Prophylaxis Devices: Yes VTE Pharmacological Prophylaxi: No Assessment/Plan Assessment/Plan abd pain with viscus perforation, possible gastric given taking ibuprofen? HTN HLD NEW onset afib with RVR hypokalemia hypomagnesemia Elcoholism DESTINEE, dehydration, vasomotor mild malnutrition plan:CT showed Pneumoperitoneum compatible with a ruptured viscus. sx today card consult ,echo later. tsh normal hold po meds banana bag daily, npo, ivf for now replete Mag, K labs tmr gi ppx dvt ppx tmr if ok with sx ATIVAN prn hold ibuprofen admit 2nights KRISTIN PEÑA MD Jun 06, 2017 15:41
[2017-06-06 15:43] LABS: HCO3 ABG 21 mmol/L (21-28); PCO2 ABG 42 mmHg (35-46); PH ABG 7.32 (7.35-7.45); PO2 ABG 202 mmHg (65-108); SAT O2 ABG 99 % (92-99)
[2017-06-06 15:45] LABS: FIO2 ABG 60
[2017-06-06] MEDS ORDERED: MORPHINE SULFATE 2 MG/ML DISP.SYRIN. IV PRN (15:45)
[2017-06-06] MEDS ORDERED: MORPHINE SULFATE 4 MG/ML DISP.SYRIN. IV PRN (15:45)
--- NOTE | 2017-06-06 16:35 | PDOC ---
PULMONARY PROGRESS NOTES Vitals Vital Signs Date Time Temp Pulse Resp B/P (MAP) Pulse Ox O2 Delivery O2 Flow Rate FiO2 06/06/17 15:52 102 20 102/60 100 Ventilator 06/06/17 15:22 97.3 97.3 06/06/17 14:51 10 Labs Laboratory Tests Test 06/06/17 07:00 06/06/17 07:35 06/06/17 07:39 06/06/17 14:42 Thyroid Stimulating Hormone (TSH) 2.433 uIU/mL (0.358-3.74) White Blood Count 4.8 x10^3/uL (4.0-11.0) Red Blood Count 3.96 x10^6/uL (4.30-5.70) Hemoglobin 11.4 g/dL (13.0-17.5) Hematocrit 34.5 % (39.0-53.0) Mean Corpuscular Volume 87 fL (79-100) Mean Corpuscular Hemoglobin 29 pg (25-35) Mean Corpuscular Hemoglobin Concent 33 g/dL (31-37) Red Cell Distribution Width 14.0 % (11.5-14.5) Platelet Count 248 x10^3/uL (140-400) Neutrophils (%) (Auto) 91 % (31-73) Lymphocytes (%) (Auto) 6 % (24-48) Monocytes (%) (Auto) 3 % (0-9) Eosinophils (%) (Auto) 1 % (0-3) Basophils (%) (Auto) 0 % (0-3) Neutrophils # (Auto) 4.3 x10^3uL (1.8-7.7) Lymphocytes # (Auto) 0.3 x10^3/uL (1.0-4.8) Monocytes # (Auto) 0.1 x10^3/uL (0.0-1.1) Eosinophils # (Auto) 0.0 x10^3/uL (0.0-0.7) Basophils # (Auto) 0.0 x10^3/uL (0.0-0.2) Segmented Neutrophils % 79 % (35-66) Band Neutrophils % 6 % (0-9) Lymphocytes % 12 % (24-48) Monocytes % 3 % (0-10) Platelet Estimate Adequate (ADEQUATE) Prothrombin Time 13.9 SEC (11.7-14.0) Prothromb Time International Ratio 1.1 (0.8-1.1) Activated Partial Thromboplast Time 33 SEC (24-38) Sodium Level 136 mmol/L (136-145) 139 mmol/L (136-145) Potassium Level 2.4 mmol/L (3.5-5.1) 3.6 mmol/L (3.5-5.1) Chloride Level 98 mmol/L (98-107) 105 mmol/L (98-107) Carbon Dioxide Level 27 mmol/L (21-32) 26 mmol/L (21-32) Anion Gap 11 (6-14) 8 (6-14) Blood Urea Nitrogen 28 mg/dL (8-26) 24 mg/dL (8-26) Creatinine 1.5 mg/dL (0.7-1.3) 1.1 mg/dL (0.7-1.3) Estimated GFR (Cockcroft-Gault) 46.8 67.0 BUN/Creatinine Ratio 19 (6-20) Glucose Level 116 mg/dL (70-99) 129 mg/dL (70-99) Calcium Level 9.3 mg/dL (8.5-10.1) 8.3 mg/dL (8.5-10.1) Magnesium Level 1.6 mg/dL (1.8-2.4) Total Bilirubin 0.7 mg/dL (0.2-1.0) Aspartate Amino Transf (AST/SGOT) 21 U/L (15-37) Alanine Aminotransferase (ALT/SGPT) 27 U/L (16-63) Alkaline Phosphatase 102 U/L (46-116) Creatine Kinase 22 U/L (39-308) Troponin I Quantitative < 0.017 ng/mL (0.000-0.055) AU-Ovn-U-Type Natriuretic Peptide 1003 pg/mL (0-124) Total Protein 6.1 g/dL (6.4-8.2) Albumin 2.0 g/dL (3.4-5.0) Albumin/Globulin Ratio 0.5 (1.0-1.7) Lipase 101 U/L (73-393) Ethyl Alcohol Level < 10 mg/dL (0-10) Urine Collection Type Unknown Urine Color Yellow Urine Clarity Clear Urine pH 6.0 Urine Specific [place] 1.015 Urine Protein 100 mg/dL (NEG-TRACE) Urine Glucose (UA) Negative mg/dL (NEG) Urine Ketones (Stick) Trace mg/dL (NEG) Urine Blood Negative (NEG) Urine Nitrite Negative (NEG) Urine Bilirubin Negative (NEG) Urine Urobilinogen Dipstick 1.0 mg/dL (0.2 mg/dL) Urine Leukocyte Esterase Negative (NEG) Urine RBC 0 /HPF (0-2) Urine WBC Occ /HPF (0-4) Urine Squamous Epithelial Cells Few /LPF Urine Bacteria Few /HPF (0-FEW) Urine Mucus Slight /LPF Urine Opiates Screen Neg (NEG) Urine Methadone Screen Neg (NEG) Urine Barbiturates Neg (NEG) Urine Phencyclidine Screen Neg (NEG) Urine Amphetamine/Methamphetamine Neg (NEG) Urine Benzodiazepines Screen Neg (NEG) Urine Cocaine Screen Neg (NEG) Urine Cannabinoids Screen Pos (NEG) Urine Ethyl Alcohol Neg (NEG) Test 06/06/17 15:35 O2 Saturation 99 % (92-99) Arterial Blood pH 7.32 (7.35-7.45) Arterial Blood pCO2 at Patient Temp 42 mmHg (35-46) Arterial Blood pO2 at Patient Temp 202 mmHg (65-108) Arterial Blood HCO3 21 mmol/L (21-28) Arterial Blood Base Excess -5 mmol/L (-3-3) FiO2 60 Laboratory Tests Test 06/06/17 07:00 06/06/17 07:35 06/06/17 07:39 06/06/17 14:42 Thyroid Stimulating Hormone (TSH) 2.433 uIU/mL (0.358-3.74) White Blood Count 4.8 x10^3/uL (4.0-11.0) Red Blood Count 3.96 x10^6/uL (4.30-5.70) Hemoglobin 11.4 g/dL (13.0-17.5) Hematocrit 34.5 % (39.0-53.0) Mean Corpuscular Volume 87 fL (79-100) Mean Corpuscular Hemoglobin 29 pg (25-35) Mean Corpuscular Hemoglobin Concent 33 g/dL (31-37) Red Cell Distribution Width 14.0 % (11.5-14.5) Platelet Count 248 x10^3/uL (140-400) Neutrophils (%) (Auto) 91 % (31-73) Lymphocytes (%) (Auto) 6 % (24-48) Monocytes (%) (Auto) 3 % (0-9) Eosinophils (%) (Auto) 1 % (0-3) Basophils (%) (Auto) 0 % (0-3) Neutrophils # (Auto) 4.3 x10^3uL (1.8-7.7) Lymphocytes # (Auto) 0.3 x10^3/uL (1.0-4.8) Monocytes # (Auto) 0.1 x10^3/uL (0.0-1.1) Eosinophils # (Auto) 0.0 x10^3/uL (0.0-0.7) Basophils # (Auto) 0.0 x10^3/uL (0.0-0.2) Segmented Neutrophils % 79 % (35-66) Band Neutrophils % 6 % (0-9) Lymphocytes % 12 % (24-48) Monocytes % 3 % (0-10) Platelet Estimate Adequate (ADEQUATE) Prothrombin Time 13.9 SEC (11.7-14.0) Prothromb Time International Ratio 1.1 (0.8-1.1) Activated Partial Thromboplast Time 33 SEC (24-38) Sodium Level 136 mmol/L (136-145) 139 mmol/L (136-145) Potassium Level 2.4 mmol/L (3.5-5.1) 3.6 mmol/L (3.5-5.1) Chloride Level 98 mmol/L (98-107) 105 mmol/L (98-107) Carbon Dioxide Level 27 mmol/L (21-32) 26 mmol/L (21-32) Anion Gap 11 (6-14) 8 (6-14) Blood Urea Nitrogen 28 mg/dL (8-26) 24 mg/dL (8-26) Creatinine 1.5 mg/dL (0.7-1.3) 1.1 mg/dL (0.7-1.3) Estimated GFR (Cockcroft-Gault) 46.8 67.0 BUN/Creatinine Ratio 19 (6-20) Glucose Level 116 mg/dL (70-99) 129 mg/dL (70-99) Calcium Level 9.3 mg/dL (8.5-10.1) 8.3 mg/dL (8.5-10.1) Magnesium Level 1.6 mg/dL (1.8-2.4) Total Bilirubin 0.7 mg/dL (0.2-1.0) Aspartate Amino Transf (AST/SGOT) 21 U/L (15-37) Alanine Aminotransferase (ALT/SGPT) 27 U/L (16-63) Alkaline Phosphatase 102 U/L (46-116) Creatine Kinase 22 U/L (39-308) Troponin I Quantitative < 0.017 ng/mL (0.000-0.055) XL-Jmn-E-Type Natriuretic Peptide 1003 pg/mL (0-124) Total Protein 6.1 g/dL (6.4-8.2) Albumin 2.0 g/dL (3.4-5.0) Albumin/Globulin Ratio 0.5 (1.0-1.7) Lipase 101 U/L (73-393) Ethyl Alcohol Level < 10 mg/dL (0-10) Urine Collection Type Unknown Urine Color Yellow Urine Clarity Clear Urine pH 6.0 Urine Specific [place] 1.015 Urine Protein 100 mg/dL (NEG-TRACE) Urine Glucose (UA) Negative mg/dL (NEG) Urine Ketones (Stick) Trace mg/dL (NEG) Urine Blood Negative (NEG) Urine Nitrite Negative (NEG) Urine Bilirubin Negative (NEG) Urine Urobilinogen Dipstick 1.0 mg/dL (0.2 mg/dL) Urine Leukocyte Esterase Negative (NEG) Urine RBC 0 /HPF (0-2) Urine WBC Occ /HPF (0-4) Urine Squamous Epithelial Cells Few /LPF Urine Bacteria Few /HPF (0-FEW) Urine Mucus Slight /LPF Urine Opiates Screen Neg (NEG) Urine Methadone Screen Neg (NEG) Urine Barbiturates Neg (NEG) Urine Phencyclidine Screen Neg (NEG) Urine Amphetamine/Methamphetamine Neg (NEG) Urine Benzodiazepines Screen Neg (NEG) Urine Cocaine Screen Neg (NEG) Urine Cannabinoids Screen Pos (NEG) Urine Ethyl Alcohol Neg (NEG) Test 06/06/17 15:35 O2 Saturation 99 % (92-99) Arterial Blood pH 7.32 (7.35-7.45) Arterial Blood pCO2 at Patient Temp 42 mmHg (35-46) Arterial Blood pO2 at Patient Temp 202 mmHg (65-108) Arterial Blood HCO3 21 mmol/L (21-28) Arterial Blood Base Excess -5 mmol/L (-3-3) FiO2 60 Impression . FULL CONSULT DICTATED ACUTE RESP FAILURE AGREE WITH CURRENT RX THANKS CONNIE AVILA MD Jun 06, 2017 16:35
--- NOTE | 2017-06-06 16:47 | PDOC ---
BRIEF OPERATIVE NOTE Date: Jun 06, 2017 Pre-Op Diagnosis perforated viscous Post-Op Diagnosis same, 2/2 perforated sigmoid diverticulitis with fecal spillage Procedure Performed exploratory laparotomy sigmoid resection with end colostomy, Eufemia's pouch Surgeon Maximiliano Anesthesia Type: General Blood Loss 150cc IV Fluid 3000cc Urine Output 450cc Specimens Obtained sigmoid colon Findings perforation in the mid-distal sigmoid colon with feculent spillage Complications none MARY MARTINEZ MD Jun 06, 2017 16:47
--- NOTE | 2017-06-06 16:49 | RAD ---
Exam performed: One view chest. History: Endotracheal tube placement. Date of service: 06/06/17. Comparison: 08/01/15. Single AP supine portable view chest findings: Placement of endotracheal tube with its tip above the clavicles. Heart size is within limits of normal for positioning. Linear right basilar opacity likely atelectasis. There is small left pleural effusion. Impression: Endotracheal tube tip is above the clavicles. Right basilar atelectasis. Tiny left pleural effusion
--- NOTE | 2017-06-06 18:21 | CONS ---
DATE OF CONSULTATION: 06/06/2017 ATTENDING PHYSICIAN: Roxanne Molina MD. REASON FOR CONSULTATION: The patient is seen in pulmonary consultation at the request of Dr. Castro for respiratory failure, status post surgical intervention. HISTORY OF PRESENT ILLNESS: The patient presented with abdominal pain, viscus perforation, was taken to the operating room. He was extubated. He required reintubation. I was asked to see him in consultation for vent management. I saw him in the recovery. He had an arterial blood gas on mechanical ventilation revealing the pH of 7.32, PaCO2 of 42, pO2 of 202. The patient was sedated. He had electrolytes drawn, BUN and creatinine were normal. His BNP was slightly elevated. Albumin was low. Chest x-ray is pending. His CT abdomen and pelvis report indicated pneumoperitoneum compatible with ruptured viscus. PAST MEDICAL HISTORY: Obtained by reviewing the current documentation. He has a history of hypertension, hyperlipidemia. There is no history of COPD. PAST SURGICAL HISTORY: None. FAMILY HISTORY: Heart disease. SOCIAL HISTORY: He drinks wine on a regular basis. No history of tobacco use. PHYSICAL EXAMINATION: GENERAL: The patient was in the recovery room, sedated. VITAL SIGNS: Stable. O2 saturation was greater than 92%, currently on assist control ventilation. HEENT: Eyes, the sclerae were nonicteric. NECK: Jugular venous distention was not elevated. NG tube placed nasally. Orally placed endotracheal tube. LUNGS: Anteriorly were clear. CARDIOVASCULAR: Regular rate and rhythm with S1 and S2, no S3. ABDOMEN: Soft, nontender. Dressing in place, tubes in place. EXTREMITIES: No clubbing, cyanosis or pitting edema. LABORATORY DATA: Reviewed. Electrolytes were noted. Initially, potassium was low, BUN and creatinine was elevated, albumin is low, BNP is elevated. IMPRESSION: 1. Acute respiratory failure, expected status post exploratory laparotomy. 2. Emergent exploratory laparotomy for perforated viscus. 3. History of alcoholism. 4. Hypertension. 5. Hyperlipidemia. 6. Severe protein malnutrition, present upon admission. 7. Hypokalemia. 8. Acute kidney injury. PLAN: 1. Continue current assist control ventilation. 2. Baseline chest x-ray. 3. NG to suction. 4. Continue close monitoring of abdominal tubes placement and drainage. 5. Empiric antibiotics. 6. Pain management. 7. Alcohol withdrawal protocol. 8. DVT and GI prophylaxis. I do appreciate the privilege in sharing in the patient's care. Total cumulative critical care time of 45 minutes. CONNIE AVILA MD DR: [email or web address]/bigg JOB#: [id number] / [id number]
[2017-06-06] MEDS: POTASSIUM CL 20MEQ-0.45% NACL 1,000 ML IV SCH (18:48)
[2017-06-06] MEDS: FAMOTIDINE 20 MG/2 ML VIAL IVP SCH (22:04)
[2017-06-06] MEDS ORDERED: MIDAZOLAM PREMIX 100 ML IV PRN (23:00)
[2017-06-07] VITALS (21 sets, daily range): BP systolic 105–166; BP diastolic 54–86
[2017-06-07] MEDS: POTASSIUM CL 20MEQ-0.45% NACL 1,000 ML IV SCH ×3 (03:00→20:02)
[2017-06-07 04:56] LABS: BASO % 0 % (0-3); EOS % 1 % (0-3); HEMOGLOBIN 10.1 g/dL (13.0-17.5); LYMPH # 0.2 x10^3/uL (1.0-4.8); LYMPH % 3 % (24-48); MEAN CORPUSCULAR HEMOGLOBIN 29 pg (25-35); MEAN CORPUSCULAR HGB CONC 34 g/dL (31-37); MEAN CORPUSCULAR VOLUME 87 fL (79-100); MONO % 5 % (0-9); NEUT % 91 % (31-73); PLATELET COUNT 216 x10^3/uL (140-400); RED BLOOD COUNT 3.45 x10^6/uL (4.30-5.70); RED CELL DISTRIBUTION WIDTH 14.5 % (11.5-14.5); WHITE BLOOD COUNT 9.7 x10^3/uL (4.0-11.0)
[2017-06-07 05:51] LABS: CALCIUM 7.9 mg/dL (8.5-10.1); CREATININE 1.1 mg/dL (0.7-1.3); MAGNESIUM 1.5 mg/dL (1.8-2.4); PHOSPHORUS 3.3 mg/dL (2.6-4.7); POTASSIUM 3.9 mmol/L (3.5-5.1)
[2017-06-07 06:01] LABS: CHOLESTEROL/HDL RATIO 8.3
[2017-06-07] MEDS ORDERED: MAGNESIUM SULFATE 2GM 50 ML IV ONE (08:15)
[2017-06-07 08:40] LABS: HCO3 ABG 22 mmol/L (21-28); PCO2 ABG 37 mmHg (35-46); PH ABG 7.39 (7.35-7.45); PO2 ABG 128 mmHg (65-108); SAT O2 ABG 98 % (92-99)
[2017-06-07 08:41] LABS: FIO2 ABG 40
[2017-06-07] MEDS ORDERED: MULTIVIT INFUSN,ADULT 4,VIT K 10 ML, FOLIC ACID 1 MG, THIAMINE 100 MG in IV DEXTROSE 5%... IV SCH (09:00)
--- NOTE | 2017-06-07 09:13 | RAD ---
Exam performed: One view chest. History: Respiratory failure. Date of service: 06/07/17 comparison: 06/06/17 Single AP semiupright portable view chest findings: Endotracheal tube is seen in a similar position as previously. The heart size and mediastinal silhouette is within limits of normal. The pulmonary vascularity is unremarkable. Lungs are clear. Impression: No acute findings seen. No interval change.
[2017-06-07] MEDS ORDERED: LISI10TA2 PO (09:19)
[2017-06-07] MEDS ORDERED: HYDR50TA6 PO (09:19)
[2017-06-07] MEDS ORDERED: prednisone taper (09:19)
[2017-06-07] MEDS ORDERED: METO-247 PO (09:19)
[2017-06-07] MEDS: FAMOTIDINE 20 MG/2 ML VIAL IVP SCH ×2 (09:29→21:11)
--- NOTE | 2017-06-07 10:15 | CARD ---
APPROVED REPORT EXAM: Two-dimensional and M-mode echocardiogram with Doppler and color Doppler. Other Information Quality : Average Rhythm : NSR INDICATION Atrial Fibrillation 2D DIMENSIONS RVDd3.0 (2.9-3.5cm)Left Atrium(2D)3.7 (1.6-4.0cm) IVSd1.2 (0.7-1.1cm)Aortic Root(2D)2.6 (2.0-3.7cm) LVDd4.5 (3.9-5.9cm)LVOT Diameter2.1 (1.8-2.4cm) PWd1.2 (0.7-1.1cm)LVDs2.8 (2.5-4.0cm) FS (%) 38.5 %SV63.8 ml LVEF(%)68.9 (>50%) Aortic Valve AoV Peak Herson.167.3cm/sAoV VTI31.2cm AO Peak GR.11.2mmHgLVOT VTI 21.36cm AO Mean GR.5mmHg Mitral Valve MV E Nmsdujxb52.1cm/sMV E Peak Gr.3mmHg MV DECEL [id number] A Ciehilse65.6cm/s MV [id number]/A Ratio1.0 MV A [id number] (PHT)3.55cm2 TDI Lateral E' P. V16.28cm/sMedial E' P. V9.18cm/s E/Lateral E'5.3E/Medial E'9.4 Tricuspid Valve TR P. [id number]/sRAP [id number] TR Peak Gr.[id number] LEFT VENTRICLE The left ventricle is normal size. There is borderline concentric left ventricular hypertrophy. Left ventricle systolic function is normal. The Ejection Fraction is 65-70%. There is normal LV segmental wall motion. The left ventricular diastolic function and filling is normal for age. RIGHT VENTRICLE The right ventricle is normal size. The right ventricular systolic function is normal. ATRIA The left atrium size is normal. The right atrium size is normal. The interatrial septum is intact wit h no evidence for an atrial septal defect or patent foramen ovale as noted on 2-D or Doppler imaging. AORTIC VALVE The aortic valve is normal in structure and function. The aortic valve is trileaflet. Doppler and Col or Flow revealed no significant aortic regurgitation. There is no significant aortic valvular stenosi s. MITRAL VALVE The mitral valve is normal in structure and function. There is no mitral valve stenosis. Doppler and Color Flow revealed no mitral valve regurgitation noted. TRICUSPID VALVE The tricuspid valve is normal in structure. Doppler and Color Flow revealed mild tricuspid regurgitat ion. The PA pressure was estimated at 44 mmHg. There is no tricuspid valve stenosis. PULMONIC VALVE The pulmonic valve is not well visualized. Doppler and Color Flow revealed no pulmonic valvular regur gitation. There is no pulmonic valvular stenosis. GREAT VESSELS The aortic root is normal in size. The ascending aorta is normal in size. The IVC was not visualized due to surgical site. PERICARDIAL EFFUSION There is no evidence of significant pericardial effusion. Critical Notification Critical Value: No <Conclusion> Left ventricle systolic function is normal. The Ejection Fraction is 65-70%. There is normal LV segmental wall motion. Doppler and Color Flow revealed mild tricuspid regurgitation. The PA pressure was estimated at 44 mmHg. There is no evidence of significant pericardial effusion.
[2017-06-07] MEDS: ENOXAPARIN 40 MG/0.4 ML SYRINGE. SQ SCH (10:27)
--- NOTE | 2017-06-07 10:33 | PDOC ---
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: Yes General: Alert, Oriented X3, No acute distress Abdomen: Soft, Other (stoma viable) Labs Laboratory Tests Test 06/06/17 07:00 06/06/17 07:35 06/06/17 07:39 06/06/17 14:42 Thyroid Stimulating Hormone (TSH) 2.433 uIU/mL (0.358-3.74) White Blood Count 4.8 x10^3/uL (4.0-11.0) Red Blood Count 3.96 x10^6/uL (4.30-5.70) Hemoglobin 11.4 g/dL (13.0-17.5) Hematocrit 34.5 % (39.0-53.0) Mean Corpuscular Volume 87 fL (79-100) Mean Corpuscular Hemoglobin 29 pg (25-35) Mean Corpuscular Hemoglobin Concent 33 g/dL (31-37) Red Cell Distribution Width 14.0 % (11.5-14.5) Platelet Count 248 x10^3/uL (140-400) Neutrophils (%) (Auto) 91 % (31-73) Lymphocytes (%) (Auto) 6 % (24-48) Monocytes (%) (Auto) 3 % (0-9) Eosinophils (%) (Auto) 1 % (0-3) Basophils (%) (Auto) 0 % (0-3) Neutrophils # (Auto) 4.3 x10^3uL (1.8-7.7) Lymphocytes # (Auto) 0.3 x10^3/uL (1.0-4.8) Monocytes # (Auto) 0.1 x10^3/uL (0.0-1.1) Eosinophils # (Auto) 0.0 x10^3/uL (0.0-0.7) Basophils # (Auto) 0.0 x10^3/uL (0.0-0.2) Segmented Neutrophils % 79 % (35-66) Band Neutrophils % 6 % (0-9) Lymphocytes % 12 % (24-48) Monocytes % 3 % (0-10) Platelet Estimate Adequate (ADEQUATE) Prothrombin Time 13.9 SEC (11.7-14.0) Prothromb Time International Ratio 1.1 (0.8-1.1) Activated Partial Thromboplast Time 33 SEC (24-38) Sodium Level 136 mmol/L (136-145) 139 mmol/L (136-145) Potassium Level 2.4 mmol/L (3.5-5.1) 3.6 mmol/L (3.5-5.1) Chloride Level 98 mmol/L (98-107) 105 mmol/L (98-107) Carbon Dioxide Level 27 mmol/L (21-32) 26 mmol/L (21-32) Anion Gap 11 (6-14) 8 (6-14) Blood Urea Nitrogen 28 mg/dL (8-26) 24 mg/dL (8-26) Creatinine 1.5 mg/dL (0.7-1.3) 1.1 mg/dL (0.7-1.3) Estimated GFR (Cockcroft-Gault) 46.8 67.0 BUN/Creatinine Ratio 19 (6-20) Glucose Level 116 mg/dL (70-99) 129 mg/dL (70-99) Calcium Level 9.3 mg/dL (8.5-10.1) 8.3 mg/dL (8.5-10.1) Magnesium Level 1.6 mg/dL (1.8-2.4) Total Bilirubin 0.7 mg/dL (0.2-1.0) Aspartate Amino Transf (AST/SGOT) 21 U/L (15-37) Alanine Aminotransferase (ALT/SGPT) 27 U/L (16-63) Alkaline Phosphatase 102 U/L (46-116) Creatine Kinase 22 U/L (39-308) Troponin I Quantitative < 0.017 ng/mL (0.000-0.055) NH-Lwc-E-Type Natriuretic Peptide 1003 pg/mL (0-124) Total Protein 6.1 g/dL (6.4-8.2) Albumin 2.0 g/dL (3.4-5.0) Albumin/Globulin Ratio 0.5 (1.0-1.7) Lipase 101 U/L (73-393) Ethyl Alcohol Level < 10 mg/dL (0-10) Urine Collection Type Unknown Urine Color Yellow Urine Clarity Clear Urine pH 6.0 Urine Specific [place] 1.015 Urine Protein 100 mg/dL (NEG-TRACE) Urine Glucose (UA) Negative mg/dL (NEG) Urine Ketones (Stick) Trace mg/dL (NEG) Urine Blood Negative (NEG) Urine Nitrite Negative (NEG) Urine Bilirubin Negative (NEG) Urine Urobilinogen Dipstick 1.0 mg/dL (0.2 mg/dL) Urine Leukocyte Esterase Negative (NEG) Urine RBC 0 /HPF (0-2) Urine WBC Occ /HPF (0-4) Urine Squamous Epithelial Cells Few /LPF Urine Bacteria Few /HPF (0-FEW) Urine Mucus Slight /LPF Urine Opiates Screen Neg (NEG) Urine Methadone Screen Neg (NEG) Urine Barbiturates Neg (NEG) Urine Phencyclidine Screen Neg (NEG) Urine Amphetamine/Methamphetamine Neg (NEG) Urine Benzodiazepines Screen Neg (NEG) Urine Cocaine Screen Neg (NEG) Urine Cannabinoids Screen Pos (NEG) Urine Ethyl Alcohol Neg (NEG) Test 06/06/17 15:35 06/07/17 03:00 06/07/17 03:55 06/07/17 08:30 O2 Saturation 99 % (92-99) 98 % (92-99) Arterial Blood pH 7.32 (7.35-7.45) 7.39 (7.35-7.45) Arterial Blood pCO2 at Patient Temp 42 mmHg (35-46) 37 mmHg (35-46) Arterial Blood pO2 at Patient Temp 202 mmHg (65-108) 128 mmHg (65-108) Arterial Blood HCO3 21 mmol/L (21-28) 22 mmol/L (21-28) Arterial Blood Base Excess -5 mmol/L (-3-3) -3 mmol/L (-3-3) FiO2 60 40 White Blood Count 9.7 x10^3/uL (4.0-11.0) Red Blood Count 3.45 x10^6/uL (4.30-5.70) Hemoglobin 10.1 g/dL (13.0-17.5) Hematocrit 30.0 % (39.0-53.0) Mean Corpuscular Volume 87 fL (79-100) Mean Corpuscular Hemoglobin 29 pg (25-35) Mean Corpuscular Hemoglobin Concent 34 g/dL (31-37) Red Cell Distribution Width 14.5 % (11.5-14.5) Platelet Count 216 x10^3/uL (140-400) Neutrophils (%) (Auto) 91 % (31-73) Lymphocytes (%) (Auto) 3 % (24-48) Monocytes (%) (Auto) 5 % (0-9) Eosinophils (%) (Auto) 1 % (0-3) Basophils (%) (Auto) 0 % (0-3) Neutrophils # (Auto) 8.8 x10^3uL (1.8-7.7) Lymphocytes # (Auto) 0.2 x10^3/uL (1.0-4.8) Monocytes # (Auto) 0.5 x10^3/uL (0.0-1.1) Eosinophils # (Auto) 0.1 x10^3/uL (0.0-0.7) Basophils # (Auto) 0.0 x10^3/uL (0.0-0.2) Sodium Level 139 mmol/L (136-145) Potassium Level 3.9 mmol/L (3.5-5.1) Chloride Level 106 mmol/L (98-107) Carbon Dioxide Level 23 mmol/L (21-32) Anion Gap 10 (6-14) Blood Urea Nitrogen 26 mg/dL (8-26) Creatinine 1.1 mg/dL (0.7-1.3) Estimated GFR (Cockcroft-Gault) 67.0 Glucose Level 146 mg/dL (70-99) Calcium Level 7.9 mg/dL (8.5-10.1) Phosphorus Level 3.3 mg/dL (2.6-4.7) Magnesium Level 1.5 mg/dL (1.8-2.4) Triglycerides Level 168 mg/dL (0-150) Cholesterol Level 75 mg/dL (0-200) LDL Cholesterol, Calculated 32 mg/dL (0-100) VLDL Cholesterol, Calculated 34 mg/dL (0-40) Non-HDL Cholesterol Calculated 66 mg/dL (0-129) HDL Cholesterol 9 mg/dL (40-60) Cholesterol/HDL Ratio 8.3 Laboratory Tests Test 06/06/17 14:42 06/06/17 15:35 06/07/17 03:00 06/07/17 03:55 Sodium Level 139 mmol/L (136-145) 139 mmol/L (136-145) Potassium Level 3.6 mmol/L (3.5-5.1) 3.9 mmol/L (3.5-5.1) Chloride Level 105 mmol/L (98-107) 106 mmol/L (98-107) Carbon Dioxide Level 26 mmol/L (21-32) 23 mmol/L (21-32) Anion Gap 8 (6-14) 10 (6-14) Blood Urea Nitrogen 24 mg/dL (8-26) 26 mg/dL (8-26) Creatinine 1.1 mg/dL (0.7-1.3) 1.1 mg/dL (0.7-1.3) Estimated GFR (Cockcroft-Gault) 67.0 67.0 Glucose Level 129 mg/dL (70-99) 146 mg/dL (70-99) Calcium Level 8.3 mg/dL (8.5-10.1) 7.9 mg/dL (8.5-10.1) O2 Saturation 99 % (92-99) Arterial Blood pH 7.32 (7.35-7.45) Arterial Blood pCO2 at Patient Temp 42 mmHg (35-46) Arterial Blood pO2 at Patient Temp 202 mmHg (65-108) Arterial Blood HCO3 21 mmol/L (21-28) Arterial Blood Base Excess -5 mmol/L (-3-3) FiO2 60 White Blood Count 9.7 x10^3/uL (4.0-11.0) Red Blood Count 3.45 x10^6/uL (4.30-5.70) Hemoglobin 10.1 g/dL (13.0-17.5) Hematocrit 30.0 % (39.0-53.0) Mean Corpuscular Volume 87 fL (79-100) Mean Corpuscular Hemoglobin 29 pg (25-35) Mean Corpuscular Hemoglobin Concent 34 g/dL (31-37) Red Cell Distribution Width 14.5 % (11.5-14.5) Platelet Count 216 x10^3/uL (140-400) Neutrophils (%) (Auto) 91 % (31-73) Lymphocytes (%) (Auto) 3 % (24-48) Monocytes (%) (Auto) 5 % (0-9) Eosinophils (%) (Auto) 1 % (0-3) Basophils (%) (Auto) 0 % (0-3) Neutrophils # (Auto) 8.8 x10^3uL (1.8-7.7) Lymphocytes # (Auto) 0.2 x10^3/uL (1.0-4.8) Monocytes # (Auto) 0.5 x10^3/uL (0.0-1.1) Eosinophils # (Auto) 0.1 x10^3/uL (0.0-0.7) Basophils # (Auto) 0.0 x10^3/uL (0.0-0.2) Phosphorus Level 3.3 mg/dL (2.6-4.7) Magnesium Level 1.5 mg/dL (1.8-2.4) Triglycerides Level 168 mg/dL (0-150) Cholesterol Level 75 mg/dL (0-200) LDL Cholesterol, Calculated 32 mg/dL (0-100) VLDL Cholesterol, Calculated 34 mg/dL (0-40) Non-HDL Cholesterol Calculated 66 mg/dL (0-129) HDL Cholesterol 9 mg/dL (40-60) Cholesterol/HDL Ratio 8.3 Test 06/07/17 08:30 O2 Saturation 98 % (92-99) Arterial Blood pH 7.39 (7.35-7.45) Arterial Blood pCO2 at Patient Temp 37 mmHg (35-46) Arterial Blood pO2 at Patient Temp 128 mmHg (65-108) Arterial Blood HCO3 22 mmol/L (21-28) Arterial Blood Base Excess -3 mmol/L (-3-3) FiO2 40 Problem List Problems Medical Problems: (1) Abdominal pain Status: Acute (2) Elevated brain natriuretic peptide (BNP) level Status: Acute (3) Hypomagnesemia Status: Acute (4) Perforated abdominal viscus Status: Acute Assessment/Plan pod 1 Eufemia's procedure for perforated diverticulitis ice chips tapering steroids out of bed Problems: MARY MARTINEZ MD Jun 07, 2017 10:33
--- NOTE | 2017-06-07 10:50 | PDOC ---
Infectious Disease Note Vital Sign Vital Signs Vital Signs Date Time Temp Pulse Resp B/P (MAP) Pulse Ox O2 Delivery O2 Flow Rate FiO2 06/07/17 09:20 Nasal Cannula 2.0 06/07/17 08:00 82 14 137/68 (91) 99 06/07/17 04:00 99.2 99.2 Labs Lab Laboratory Tests Test 06/06/17 14:42 06/06/17 15:35 06/07/17 03:00 06/07/17 03:55 Sodium Level 139 mmol/L (136-145) 139 mmol/L (136-145) Potassium Level 3.6 mmol/L (3.5-5.1) 3.9 mmol/L (3.5-5.1) Chloride Level 105 mmol/L (98-107) 106 mmol/L (98-107) Carbon Dioxide Level 26 mmol/L (21-32) 23 mmol/L (21-32) Anion Gap 8 (6-14) 10 (6-14) Blood Urea Nitrogen 24 mg/dL (8-26) 26 mg/dL (8-26) Creatinine 1.1 mg/dL (0.7-1.3) 1.1 mg/dL (0.7-1.3) Estimated GFR (Cockcroft-Gault) 67.0 67.0 Glucose Level 129 mg/dL (70-99) 146 mg/dL (70-99) Calcium Level 8.3 mg/dL (8.5-10.1) 7.9 mg/dL (8.5-10.1) O2 Saturation 99 % (92-99) Arterial Blood pH 7.32 (7.35-7.45) Arterial Blood pCO2 at Patient Temp 42 mmHg (35-46) Arterial Blood pO2 at Patient Temp 202 mmHg (65-108) Arterial Blood HCO3 21 mmol/L (21-28) Arterial Blood Base Excess -5 mmol/L (-3-3) FiO2 60 White Blood Count 9.7 x10^3/uL (4.0-11.0) Red Blood Count 3.45 x10^6/uL (4.30-5.70) Hemoglobin 10.1 g/dL (13.0-17.5) Hematocrit 30.0 % (39.0-53.0) Mean Corpuscular Volume 87 fL (79-100) Mean Corpuscular Hemoglobin 29 pg (25-35) Mean Corpuscular Hemoglobin Concent 34 g/dL (31-37) Red Cell Distribution Width 14.5 % (11.5-14.5) Platelet Count 216 x10^3/uL (140-400) Neutrophils (%) (Auto) 91 % (31-73) Lymphocytes (%) (Auto) 3 % (24-48) Monocytes (%) (Auto) 5 % (0-9) Eosinophils (%) (Auto) 1 % (0-3) Basophils (%) (Auto) 0 % (0-3) Neutrophils # (Auto) 8.8 x10^3uL (1.8-7.7) Lymphocytes # (Auto) 0.2 x10^3/uL (1.0-4.8) Monocytes # (Auto) 0.5 x10^3/uL (0.0-1.1) Eosinophils # (Auto) 0.1 x10^3/uL (0.0-0.7) Basophils # (Auto) 0.0 x10^3/uL (0.0-0.2) Phosphorus Level 3.3 mg/dL (2.6-4.7) Magnesium Level 1.5 mg/dL (1.8-2.4) Triglycerides Level 168 mg/dL (0-150) Cholesterol Level 75 mg/dL (0-200) LDL Cholesterol, Calculated 32 mg/dL (0-100) VLDL Cholesterol, Calculated 34 mg/dL (0-40) Non-HDL Cholesterol Calculated 66 mg/dL (0-129) HDL Cholesterol 9 mg/dL (40-60) Cholesterol/HDL Ratio 8.3 Test 06/07/17 08:30 O2 Saturation 98 % (92-99) Arterial Blood pH 7.39 (7.35-7.45) Arterial Blood pCO2 at Patient Temp 37 mmHg (35-46) Arterial Blood pO2 at Patient Temp 128 mmHg (65-108) Arterial Blood HCO3 22 mmol/L (21-28) Arterial Blood Base Excess -3 mmol/L (-3-3) FiO2 40 Micro GRAM STAIN Final WBCS MANY RBCS MANY GRAM POSITIVE COCCI MODERATE GRAM POSITIVE RODS MANY GRAM NEGATIVE RODS FEW MANY TINY GRAM NEGATIVE RODS AND MODERATE TINY GRAM POSITIVE COCCI, SUGGESTIVE OF ANAEROBES. Objective Assessment Perforated viscus with fecal peritonitis Abdominal pain HTN Respiratory failure Chronic back pain Plan Plan of Care cont levaquin and flagyl for now supportive care d/w will check cultures and adjust JYOTI JIANG MD Jun 07, 2017 10:50
--- NOTE | 2017-06-07 10:55 | PDOC2 ---
CONSULT Date of Consult Date of Consult DATE: 06/06/17 TIME: 10:00 Past Medical History Cardiovascular: HTN, Hyperlipidemia, Other (+ coronary calcium score) Past Surgical History Past Surgical History: Other (unknown) Family History Family History: Heart Disease (heart failure in father) Social History No ALCOHOL: heavy (3+ glasses of wine per day) Current Problem List Problem List Problems Medical Problems: (1) Abdominal pain Status: Acute (2) Elevated brain natriuretic peptide (BNP) level Status: Acute (3) Hypomagnesemia Status: Acute (4) Perforated abdominal viscus Status: Acute Current Medications Current Medications Current Medications Sodium Chloride 1,000 ml @ 1,000 mls/hr 1X ONCE IV Last administered on 08:22; Start 06/06/17 at 08:30; Stop 06/06/17 at 09:29; Status DC Ondansetron HCl (Zofran) 8 mg 1X ONCE IV Last administered on 06/06/17 08:23 ; Start 06/06/17 at 08:30; Stop 06/06/17 at 08:31; Status DC Morphine Sulfate 5 mg 1X ONCE IV Last administered on 06/06/17 08:29; Start 06/06/17 at 08:30; Stop 06/06/17 at 08:31; Status DC Potassium Chloride (Klor-Con) 40 meq 1X ONCE PO Last administered on 09:31; Start 06/06/17 at 08:30; Stop 06/06/17 at 08:31; Status DC Potassium Chloride/Sodium Chloride 1,000 ml @ 250 mls/hr 1X ONCE IV Last administered on 06/06/17 09:36; Start 06/06/17 at 08:30; Stop 06/06/17 at 12:29 ; Status DC Iohexol (Omnipaque 300 Mg/ml) 60 ml 1X ONCE IV Last administered on 06/06/17 08:51; Start 06/06/17 at 08:45; Stop 06/06/17 at 08:46; Status DC Magnesium Oxide (Magnesium Oxide) 800 mg 1X STAT PO Last administered on 09:31; Start 06/06/17 at 08:37; Stop 06/06/17 at 08:40; Status DC Info (Do NOT chart on this entry -- for MONITORING) 1 each PRN DAILY PRN MC SEE COMMENTS; Start 06/06/17 at 08:45; Stop 06/08/17 at 08:44 Metronidazole 100 ml @ 100 mls/hr 1X ONCE IV Last administered on 06/06/17t 10:00; Start 06/06/17 at 09:30; Stop 06/06/17 at 10:29; Status DC Levofloxacin/ Dextrose (Levaquin Per Pharmacy) 1 each PRN DAILY PRN MC SEE COMMENTS; Start 06/06/17 at 09:30 Levofloxacin/ Dextrose 100 ml @ 100 mls/hr 1X ONCE IV ; Start 06/06/17 at 09: 30; Stop 06/06/17 at 10:29; Status DC Levofloxacin/ Dextrose 100 ml @ 100 mls/hr Q24H IV Last administered on t 11:36; Start 06/07/17 at 10:00 Rocuronium [place] (Zemuron) 100 mg STK-MED ONCE .ROUTE ; Start 06/06/17 at 10: 28; Stop 06/06/17 at 10:29; Status DC Fentanyl Citrate (Fentanyl 5ml Vial) 250 mcg STK-MED ONCE .ROUTE ; Start at 10:28; Stop 06/06/17 at 10:29; Status DC Propofol 20 ml @ As Directed STK-MED ONCE IV ; Start 06/06/17 at 10:32; Stop at 10:33; Status DC Lidocaine HCl (Lidocaine Pf 2% Vial) 5 ml STK-MED ONCE .ROUTE ; Start 06/06/17 at 10:32; Stop 06/06/17 at 10:33; Status DC Ondansetron HCl (Zofran) 4 mg STK-MED ONCE .ROUTE ; Start 06/06/17 at 10:33; Stop 06/06/17 at 10:34; Status DC Dexamethasone Sodium Phosphate (Decadron) 20 mg STK-MED ONCE .ROUTE ; Start 06/06/17 at 10:33; Stop 06/06/17 at 10:34; Status DC Multivitamins 10 ml/Folic Acid 1 mg/Thiamine HCl 100 mg/Ringer's Solution 1, 011.2 ml @ 1,000 mls/ hr 1X ONCE IV ; Start 06/06/17 at 11:30; Stop 06/06/17 at 12:30; Status DC Fentanyl Citrate (Fentanyl 2ml Vial) 25 mcg PRN Q5MIN PRN IV MILD PAIN; Start 06/06/17 at 11:45; Stop 06/07/17 at 11:44 Fentanyl Citrate (Fentanyl 2ml Vial) 50 mcg PRN Q5MIN PRN IV MODERATE PAIN Last administered on 06/06/17 17:24; Start 06/06/17 at 11:45; Stop 06/07/17 at 11:44 Morphine Sulfate 1 mg PRN Q10MIN PRN IV SEVERE PAIN Last administered on t 15:38; Start 06/06/17 at 11:45; Stop 06/07/17 at 11:44 Ringer's Solution 1,000 ml @ 30 mls/hr Q24H IV ; Start 06/06/17 at 11:39; Stop 06/06/17 at 23:38; Status DC Lidocaine HCl (Xylocaine-Mpf 1% Vial) 2 ml 1X PRN PRN ID IV START; Start at 11:45; Stop 06/07/17 at 11:44 Hydromorphone HCl (Dilaudid) 0.5 mg PRN Q10MIN PRN IV SEV PAIN, Second choice; Start 06/06/17 at 11:45; Stop 06/07/17 at 11:44 Prochlorperazine Edisylate (Compazine) 5 mg PACU PRN PRN IV NAUSEA, MRX1; Start 06/06/17 at 11:45; Stop 06/07/17 at 11:44 Phenylephrine HCl (Pedro-Synephrine Inj) 10 mg STK-MED ONCE .ROUTE ; Start at 11:58; Stop 06/06/17 at 11:59; Status DC Sodium Chloride (Sodium Chloride) 50 ml STK-MED ONCE IJ ; Start 06/06/17 at 11: 58; Stop 06/06/17 at 11:59; Status DC Sevoflurane (Ultane) 90 ml STK-MED ONCE IH ; Start 06/06/17 at 13:52; Stop 06/06 at 13:53; Status DC Neostigmine Methylsulfate 5 mg STK-MED ONCE .ROUTE ; Start 06/06/17 at 13:52; Stop 06/06/17 at 13:53; Status DC Glycopyrrolate (Robinul) 1 mg STK-MED ONCE .ROUTE ; Start 06/06/17 at 13:52; Stop 06/06/17 at 13:53; Status DC Fentanyl Citrate (Fentanyl 2ml Vial) 100 mcg STK-MED ONCE .ROUTE ; Start at 14:18; Stop 06/06/17 at 14:19; Status DC Diphenhydramine HCl (Benadryl) 25 mg PRN Q6HRS PRN IV ITCHING; Start 06/06/17 at 14:30 Enoxaparin Sodium (Lovenox 40mg Syringe) 40 mg Q24H SQ Last administered on 15:00; Start 06/06/17 at 15:00; Stop 06/06/17 at 15:41; Status DC Sodium Chloride (Normal Saline Flush) 3 ml QSHIFT PRN IV AFTER MEDS AND BLOOD DRAWS; Start 06/06/17 at 14:30 Potassium Chloride/Sodium Chloride 1,000 ml @ 100 mls/hr Q10H IV Last administered on 06/07/17 03:00; Start 06/06/17 at 15:00 Hydromorphone HCl 30 ml @ 0 mls/hr CONT PRN PRN IV PROTOCOL; Start 06/06/17 at 14:30; Stop 06/06/17 at 17:30; Status DC Ondansetron HCl (Zofran) 4 mg PRN Q6HRS PRN IV NAUESA, 1ST CHOICE; Start at 14:30 Epinephrine (S2 Racepinephrine) 0.5 ml STK-MED ONCE .ROUTE ; Start 06/06/17 at 14:35; Stop 06/06/17 at 14:36; Status DC Propofol 50 ml @ As Directed STK-MED ONCE IV ; Start 06/06/17 at 14:38; Stop at 14:39; Status DC Succinylcholine Chloride (Anectine) 200 mg STK-MED ONCE .ROUTE ; Start 06/06/17 at 14:40; Stop 06/06/17 at 14:41; Status DC Epinephrine (S2 Racepinephrine) 0.5 ml 1X ONCE NEB Last administered on 14:43; Start 06/06/17 at 14:36; Stop 06/06/17 at 14:43; Status DC Midazolam HCl (Versed) 2 mg STK-MED ONCE .ROUTE ; Start 06/06/17 at 14:48; Stop 06/06/17 at 14:49; Status DC Propofol 100 ml @ 0 mls/hr CONT PRN IV SEE I/O RECORD; Start 06/06/17 at 15:15 Propofol 50 ml @ As Directed STK-MED ONCE IV ; Start 06/06/17 at 15:03; Stop at 15:04; Status DC Dexamethasone Sodium Phosphate (Decadron) 12 mg 1X ONCE IV Last administered on 06/06/17 15:09; Start 06/06/17 at 15:00; Stop 06/06/17 at 15:06; Status DC Dexamethasone Sodium Phosphate (Decadron) 4 mg STK-MED ONCE .ROUTE ; Start 06/06 at 15:05; Stop 06/06/17 at 15:06; Status DC Propofol 50 ml @ 0 mls/hr 1X ONCE IV Last administered on 06/06/17 15:02; Start 06/06/17 at 15:15; Stop 06/06/17 at 15:16; Status DC Succinylcholine Chloride (Anectine) 200 mg 1X ONCE IV ; Start 06/06/17 at 15:15 ; Stop 06/06/17 at 15:16; Status DC Midazolam HCl (Versed) 2 mg 1X ONCE IV ; Start 06/06/17 at 15:15; Stop at 15:16; Status DC Cellulose 1 each STK-MED ONCE .ROUTE Last administered on 06/06/17 13:35; Start 06/06/17 at 14:19; Stop 06/06/17 at 15:20; Status DC Enoxaparin Sodium (Lovenox 40mg Syringe) 40 mg Q24H SQ Last administered on 10:27; Start 06/07/17 at 09:00 Metronidazole 100 ml @ 100 mls/hr Q12HR IV Last administered on 06/06/17 23: 34; Start 06/06/17 at 21:00 Multivitamins 10 ml/Folic Acid 1 mg/Thiamine HCl 100 mg/Dextrose/ Lactated Ringer's 1,011.2 ml @ 100 mls/ hr DAILY IV Last administered on 06/07/17 09: 21; Start 06/07/17 at 09:00; Stop 06/12/17 at 10:00 Lorazepam (Ativan) 2 mg PRN Q4HRS PRN IV ANXIETY / AGITATION; Start 06/06/17 at 15:45 Famotidine (Pepcid) 20 mg BID IVP Last administered on 06/07/17 09:29; Start 06/06/17 at 21:00 Morphine Sulfate 2 mg PRN Q2HR PRN IV PAIN; Start 06/06/17 at 15:45 Morphine Sulfate 4 mg PRN Q2HR PRN IV PAIN; Start 06/06/17 at 15:45 Ondansetron HCl (Zofran) 4 mg PRN Q6HRS PRN IV NAUSEA/VOMITING; Start 06/06/17 at 15:45; Stop 06/06/17 at 15:45; Status DC Fentanyl Citrate 30 ml @ 0 mls/hr CONT PRN IV PROTOCOL Last administered on 02:54; Start 06/06/17 at 17:30; Stop 06/07/17 at 10:39; Status DC Midazolam HCl 100 ml @ 0 mls/hr CONT PRN IV SEE I/O RECORD; Start 06/06/17 at 23:00 Sodium Chloride 1,000 ml @ 1,000 mls/hr 1X ONCE IV Last administered on 23:34; Start 06/06/17 at 23:00; Stop 06/06/17 at 23:59; Status DC Magnesium Sulfate/ Dextrose 50 ml @ 25 mls/hr 1X ONCE IV Last administered on 06/07/17 09:28; Start 06/07/17 at 08:15; Stop 06/07/17 at 10:14; Status DC Info 1 each PRN DAILY PRN MC SEE COMMENTS; Start 06/07/17 at 09:30 Methylprednisolone Sodium Succinate (SOLU-Medrol 125MG VIAL) 50 mg DAILY IV ; Start 06/07/17 at 11:00 Hydromorphone HCl 30 ml @ 0 mls/hr CONT PRN PRN IV PROTOCOL; Start 06/07/17 at 10:45; Status UNV Active Scripts Active Reported [prednisone taper] Metoprolol Succinate ( Xl ) (Metoprolol Succinate) 100 Mg Tab.er.24h 1 Tab PO DAILY Lisinopril 10 Mg Tablet 1 Tab PO DAILY Hydrochlorothiazide Tablet (Hydrochlorothiazide) 50 Mg Tablet 25 Tab PO DAILY Allergies Allergies: Coded Allergies: No Known Drug Allergies (Unverified , 06/06/17) Vitals VITALS Vital Signs Date Time Temp Pulse Resp B/P (MAP) Pulse Ox O2 Delivery O2 Flow Rate FiO2 06/07/17 09:20 Nasal Cannula 2.0 06/07/17 08:00 82 14 137/68 (91) 99 06/07/17 04:00 99.2 99.2 Labs Labs Laboratory Tests Test 06/06/17 07:00 06/06/17 07:35 06/06/17 07:39 06/06/17 14:42 Thyroid Stimulating Hormone (TSH) 2.433 uIU/mL (0.358-3.74) White Blood Count 4.8 x10^3/uL (4.0-11.0) Red Blood Count 3.96 x10^6/uL (4.30-5.70) Hemoglobin 11.4 g/dL (13.0-17.5) Hematocrit 34.5 % (39.0-53.0) Mean Corpuscular Volume 87 fL (79-100) Mean Corpuscular Hemoglobin 29 pg (25-35) Mean Corpuscular Hemoglobin Concent 33 g/dL (31-37) Red Cell Distribution Width 14.0 % (11.5-14.5) Platelet Count 248 x10^3/uL (140-400) Neutrophils (%) (Auto) 91 % (31-73) Lymphocytes (%) (Auto) 6 % (24-48) Monocytes (%) (Auto) 3 % (0-9) Eosinophils (%) (Auto) 1 % (0-3) Basophils (%) (Auto) 0 % (0-3) Neutrophils # (Auto) 4.3 x10^3uL (1.8-7.7) Lymphocytes # (Auto) 0.3 x10^3/uL (1.0-4.8) Monocytes # (Auto) 0.1 x10^3/uL (0.0-1.1) Eosinophils # (Auto) 0.0 x10^3/uL (0.0-0.7) Basophils # (Auto) 0.0 x10^3/uL (0.0-0.2) Segmented Neutrophils % 79 % (35-66) Band Neutrophils % 6 % (0-9) Lymphocytes % 12 % (24-48) Monocytes % 3 % (0-10) Platelet Estimate Adequate (ADEQUATE) Prothrombin Time 13.9 SEC (11.7-14.0) Prothromb Time International Ratio 1.1 (0.8-1.1) Activated Partial Thromboplast Time 33 SEC (24-38) Sodium Level 136 mmol/L (136-145) 139 mmol/L (136-145) Potassium Level 2.4 mmol/L (3.5-5.1) 3.6 mmol/L (3.5-5.1) Chloride Level 98 mmol/L (98-107) 105 mmol/L (98-107) Carbon Dioxide Level 27 mmol/L (21-32) 26 mmol/L (21-32) Anion Gap 11 (6-14) 8 (6-14) Blood Urea Nitrogen 28 mg/dL (8-26) 24 mg/dL (8-26) Creatinine 1.5 mg/dL (0.7-1.3) 1.1 mg/dL (0.7-1.3) Estimated GFR (Cockcroft-Gault) 46.8 67.0 BUN/Creatinine Ratio 19 (6-20) Glucose Level 116 mg/dL (70-99) 129 mg/dL (70-99) Calcium Level 9.3 mg/dL (8.5-10.1) 8.3 mg/dL (8.5-10.1) Magnesium Level 1.6 mg/dL (1.8-2.4) Total Bilirubin 0.7 mg/dL (0.2-1.0) Aspartate Amino Transf (AST/SGOT) 21 U/L (15-37) Alanine Aminotransferase (ALT/SGPT) 27 U/L (16-63) Alkaline Phosphatase 102 U/L (46-116) Creatine Kinase 22 U/L (39-308) Troponin I Quantitative < 0.017 ng/mL (0.000-0.055) US-Odh-B-Type Natriuretic Peptide 1003 pg/mL (0-124) Total Protein 6.1 g/dL (6.4-8.2) Albumin 2.0 g/dL (3.4-5.0) Albumin/Globulin Ratio 0.5 (1.0-1.7) Lipase 101 U/L (73-393) Ethyl Alcohol Level < 10 mg/dL (0-10) Urine Collection Type Unknown Urine Color Yellow Urine Clarity Clear Urine pH 6.0 Urine Specific Erwin 1.015 Urine Protein 100 mg/dL (NEG-TRACE) Urine Glucose (UA) Negative mg/dL (NEG) Urine Ketones (Stick) Trace mg/dL (NEG) Urine Blood Negative (NEG) Urine Nitrite Negative (NEG) Urine Bilirubin Negative (NEG) Urine Urobilinogen Dipstick 1.0 mg/dL (0.2 mg/dL) Urine Leukocyte Esterase Negative (NEG) Urine RBC 0 /HPF (0-2) Urine WBC Occ /HPF (0-4) Urine Squamous Epithelial Cells Few /LPF Urine Bacteria Few /HPF (0-FEW) Urine Mucus Slight /LPF Urine Opiates Screen Neg (NEG) Urine Methadone Screen Neg (NEG) Urine Barbiturates Neg (NEG) Urine Phencyclidine Screen Neg (NEG) Urine Amphetamine/Methamphetamine Neg (NEG) Urine Benzodiazepines Screen Neg (NEG) Urine Cocaine Screen Neg (NEG) Urine Cannabinoids Screen Pos (NEG) Urine Ethyl Alcohol Neg (NEG) Test 06/06/17 15:35 06/07/17 03:00 06/07/17 03:55 06/07/17 08:30 O2 Saturation 99 % (92-99) 98 % (92-99) Arterial Blood pH 7.32 (7.35-7.45) 7.39 (7.35-7.45) Arterial Blood pCO2 at Patient Temp 42 mmHg (35-46) 37 mmHg (35-46) Arterial Blood pO2 at Patient Temp 202 mmHg (65-108) 128 mmHg (65-108) Arterial Blood HCO3 21 mmol/L (21-28) 22 mmol/L (21-28) Arterial Blood Base Excess -5 mmol/L (-3-3) -3 mmol/L (-3-3) FiO2 60 40 White Blood Count 9.7 x10^3/uL (4.0-11.0) Red Blood Count 3.45 x10^6/uL (4.30-5.70) Hemoglobin 10.1 g/dL (13.0-17.5) Hematocrit 30.0 % (39.0-53.0) Mean Corpuscular Volume 87 fL (79-100) Mean Corpuscular Hemoglobin 29 pg (25-35) Mean Corpuscular Hemoglobin Concent 34 g/dL (31-37) Red Cell Distribution Width 14.5 % (11.5-14.5) Platelet Count 216 x10^3/uL (140-400) Neutrophils (%) (Auto) 91 % (31-73) Lymphocytes (%) (Auto) 3 % (24-48) Monocytes (%) (Auto) 5 % (0-9) Eosinophils (%) (Auto) 1 % (0-3) Basophils (%) (Auto) 0 % (0-3) Neutrophils # (Auto) 8.8 x10^3uL (1.8-7.7) Lymphocytes # (Auto) 0.2 x10^3/uL (1.0-4.8) Monocytes # (Auto) 0.5 x10^3/uL (0.0-1.1) Eosinophils # (Auto) 0.1 x10^3/uL (0.0-0.7) Basophils # (Auto) 0.0 x10^3/uL (0.0-0.2) Sodium Level 139 mmol/L (136-145) Potassium Level 3.9 mmol/L (3.5-5.1) Chloride Level 106 mmol/L (98-107) Carbon Dioxide Level 23 mmol/L (21-32) Anion Gap 10 (6-14) Blood Urea Nitrogen 26 mg/dL (8-26) Creatinine 1.1 mg/dL (0.7-1.3) Estimated GFR (Cockcroft-Gault) 67.0 Glucose Level 146 mg/dL (70-99) Calcium Level 7.9 mg/dL (8.5-10.1) Phosphorus Level 3.3 mg/dL (2.6-4.7) Magnesium Level 1.5 mg/dL (1.8-2.4) Triglycerides Level 168 mg/dL (0-150) Cholesterol Level 75 mg/dL (0-200) LDL Cholesterol, Calculated 32 mg/dL (0-100) VLDL Cholesterol, Calculated 34 mg/dL (0-40) Non-HDL Cholesterol Calculated 66 mg/dL (0-129) HDL Cholesterol 9 mg/dL (40-60) Cholesterol/HDL Ratio 8.3 Laboratory Tests Test 06/06/17 14:42 06/06/17 15:35 06/07/17 03:00 06/07/17 03:55 Sodium Level 139 mmol/L (136-145) 139 mmol/L (136-145) Potassium Level 3.6 mmol/L (3.5-5.1) 3.9 mmol/L (3.5-5.1) Chloride Level 105 mmol/L (98-107) 106 mmol/L (98-107) Carbon Dioxide Level 26 mmol/L (21-32) 23 mmol/L (21-32) Anion Gap 8 (6-14) 10 (6-14) Blood Urea Nitrogen 24 mg/dL (8-26) 26 mg/dL (8-26) Creatinine 1.1 mg/dL (0.7-1.3) 1.1 mg/dL (0.7-1.3) Estimated GFR (Cockcroft-Gault) 67.0 67.0 Glucose Level 129 mg/dL (70-99) 146 mg/dL (70-99) Calcium Level 8.3 mg/dL (8.5-10.1) 7.9 mg/dL (8.5-10.1) O2 Saturation 99 % (92-99) Arterial Blood pH 7.32 (7.35-7.45) Arterial Blood pCO2 at Patient Temp 42 mmHg (35-46) Arterial Blood pO2 at Patient Temp 202 mmHg (65-108) Arterial Blood HCO3 21 mmol/L (21-28) Arterial Blood Base Excess -5 mmol/L (-3-3) FiO2 60 White Blood Count 9.7 x10^3/uL (4.0-11.0) Red Blood Count 3.45 x10^6/uL (4.30-5.70) Hemoglobin 10.1 g/dL (13.0-17.5) Hematocrit 30.0 % (39.0-53.0) Mean Corpuscular Volume 87 fL (79-100) Mean Corpuscular Hemoglobin 29 pg (25-35) Mean Corpuscular Hemoglobin Concent 34 g/dL (31-37) Red Cell Distribution Width 14.5 % (11.5-14.5) Platelet Count 216 x10^3/uL (140-400) Neutrophils (%) (Auto) 91 % (31-73) Lymphocytes (%) (Auto) 3 % (24-48) Monocytes (%) (Auto) 5 % (0-9) Eosinophils (%) (Auto) 1 % (0-3) Basophils (%) (Auto) 0 % (0-3) Neutrophils # (Auto) 8.8 x10^3uL (1.8-7.7) Lymphocytes # (Auto) 0.2 x10^3/uL (1.0-4.8) Monocytes # (Auto) 0.5 x10^3/uL (0.0-1.1) Eosinophils # (Auto) 0.1 x10^3/uL (0.0-0.7) Basophils # (Auto) 0.0 x10^3/uL (0.0-0.2) Phosphorus Level 3.3 mg/dL (2.6-4.7) Magnesium Level 1.5 mg/dL (1.8-2.4) Triglycerides Level 168 mg/dL (0-150) Cholesterol Level 75 mg/dL (0-200) LDL Cholesterol, Calculated 32 mg/dL (0-100) VLDL Cholesterol, Calculated 34 mg/dL (0-40) Non-HDL Cholesterol Calculated 66 mg/dL (0-129) HDL Cholesterol 9 mg/dL (40-60) Cholesterol/HDL Ratio 8.3 Test 06/07/17 08:30 O2 Saturation 98 % (92-99) Arterial Blood pH 7.39 (7.35-7.45) Arterial Blood pCO2 at Patient Temp 37 mmHg (35-46) Arterial Blood pO2 at Patient Temp 128 mmHg (65-108) Arterial Blood HCO3 22 mmol/L (21-28) Arterial Blood Base Excess -3 mmol/L (-3-3) FiO2 40 Assessment/Plan Assessment/Plan FND Wk # [id number] Thanks for consult MARY MARTINEZ MD Jun 07, 2017 10:55
[2017-06-07] MEDS: methylPREDNISolone SOD SUCC PF 125 MG/2 ML VIAL. IV SCH (11:14)
--- NOTE | 2017-06-07 11:21 | OP ---
DATE OF SURGERY: 06/06/2017 PREOPERATIVE DIAGNOSIS: Perforated viscus. POSTOPERATIVE DIAGNOSIS: Perforated viscus secondary to perforated sigmoid diverticulitis with fecal spillage. PROCEDURES: 1. Exploratory laparotomy. 2. Sigmoid resection with end colostomy, Eufemia's pouch. SURGEON: Piyush Martinez M.D. ANESTHESIA: General endotracheal. ESTIMATED BLOOD LOSS: 150 mL. IV FLUIDS: 3 liters. URINE OUTPUT: 450 mL. INDICATIONS: The patient is a 67-year-old with free air, brought for exploration. OPERATIVE FINDINGS: The liver was smooth and sharp. The gallbladder was supple. The stomach was carefully inspected and showed no evidence of ulceration or induration. Small bowel was run from ligament of Treitz to ileocecal valve. There was fibrinous exudate throughout the length of the small bowel, more in the distal half, as it was associated with the pelvic process. The ascending, transverse and descending colon were palpably unremarkable. The sigmoid colon showed some marked inflammation with an area of perforation in the mid distal colon. Moderate amount of fluid and fecal material had spilled into the pelvis, had been localized by the omentum. DESCRIPTION OF PROCEDURE: The patient was brought to the operating suite, given a general endotracheal anesthetic. Patterson catheter placed to dependent drainage and the abdomen prepped and draped in the usual sterile fashion. A midline incision bisected by the umbilicus was made through the skin and subcutaneous tissue down the anterior sheath. Bleeders were cauterized as identified. The sheath was opened in the midline. Peritoneum elevated, opened sharply and extended with cautery, taking care to avoid abdominal contents. Abdomen explored with results as noted above. Once we identified the source of the process to be at the sigmoid colon, the incision was extended inferiorly toward the pubis. An Omni self-retaining retractor was used for exposure. Uninvolved sigmoid colon proximal to the process was skeletonized and divided with a JOSE stapler. The mesocolon was serially clamped, divided and ligated to a point beyond the area of perforation. A contour stapler was then used to divide the distal bowel and the colon was passed off as specimen. Care was taken during the dissection to avoid injury to the left ureter. The abdomen was then copiously irrigated in all 4 quadrants with approximately 6 liters of normal saline. When hemostasis was present, the Eufemia's pouch was tagged with a long-tail Prolene suture at each corner of the staple line for future reference. The distal end of the proximal bowel was then delivered to the left lower quadrant abdominal wall in anticipation of creating the colostomy. We again checked for hemostasis and when present, 2 Davol-Yessenia sump drains were placed, one in each gutter, brought through lower quadrant stab wounds and secured with silk sutures. A 19-Faroese round Hood drain was inserted into the true pelvis through a right lower quadrant stab wound, secured to the skin with a silk stitch. When the second sponge count was correct, the midline abdominal incision was closed in a single layer using looped 0 PDS in running fashion, tied in the middle. Skin closed loosely with ladarius and a sterile occlusive dressing was placed. Postop foreign body film was negative for unexplained foreign body. The colostomy was then matured with 3-0 chromic. Colostomy bag placed. The patient awakened from his anesthetic and taken to the recovery room in stable guarded condition. PIYUSH MARTINEZ MD DR: HIREN/bigg JOB#: [id number] / [id number]
--- NOTE | 2017-06-07 11:53 | CONS ---
DATE OF CONSULTATION: 06/07/2017 REQUESTING PHYSICIAN: Dr. Molina. REASON FOR CONSULTATION: Perforated sigmoid colon with peritonitis. HISTORY OF PRESENT ILLNESS: This is a 67-year-old gentleman who was admitted with severe abdominal pain. The patient was found to have perforation. The patient underwent sigmoid resection with end colostomy and Eufemia's pouch. The patient was extubated post-surgery and required reintubation. Now, he is just extubated 1 hour ago. He is alert, awake. He is feeling good, much better. The patient says he was having abdominal pain for 2-3 weeks, but he thought it was related to sciatica and he kept taking pain medication and then ended up with bowel perforation. Recently, he is receiving Levaquin and Flagyl. The patient denies any nausea, vomiting, diarrhea, chest pain, shortness of breath, abdominal pain, urinary symptoms or bowel symptoms. PAST MEDICAL HISTORY: Positive for hypertension, also has hyperlipidemia, sciatica. SOCIAL HISTORY: Negative for smoking, alcohol use about 3 glasses of wine a day. No drug use. ALLERGIES: No known drug allergies. CURRENT MEDICATIONS: The patient is on Levaquin and Flagyl. REVIEW OF SYSTEMS: As per HPI, all other systems reviewed are negative. PHYSICAL EXAMINATION: GENERAL: Alert, oriented gentleman, not in distress. VITAL SIGNS: Stable with a T-max is 99.3. HEENT: Anicteric. NECK: Supple, no JVP, no lymphadenopathy. LUNGS: Clear. HEART: S1, S2 regular. ABDOMEN: Benign. The patient does have a colostomy in place. The patient does have [address] EXTREMITIES: No edema, cyanosis. SKIN: Unremarkable. NEUROLOGIC: The patient is neurologically intact. LABORATORY DATA: White count is normal. BUN and creatinine is 26 and 1.1. Calcium is 7.9, magnesium is 1.5. Urinalysis unremarkable. His culture is showing gram-negative tricia and gram-positive cocci as well as anaerobic culture positive. CT scan of the abdomen had shown pneumoperitoneum. IMPRESSION: 1. Perforated sigmoid colon, status post resection and end colostomy. 2. Abdominal pain. 3. Hypertension. 4. Hyperlipidemia. 5. Respiratory failure, which has improved. 6. Chronic back problem. RECOMMENDATIONS: Would continue with Levaquin and Flagyl for the time being. We will check the culture and adjust. The patient is low risk for resistant organisms as his last antibiotic use was in August for dental work. Supportive care. Discussion with done. Thank you very much, Dr. Viera and Dr. Molina for giving me the opportunity to participate in this patient's care. JYOTI JIANG MD DR: REMI/bigg JOB#: [id number] / [id number]
--- NOTE | 2017-06-07 11:59 | CONS ---
DATE OF CONSULTATION: This is a late entry. The patient was seen, reviewed and examined yesterday morning in the preoperative holding area. SUBJECTIVE: The patient is a 67-year-old gentleman who since last there has had abdominal pain. He recently has been treated for sciatica with 800 of Motrin 3 times a day and a tapering dose of prednisone. He presented to the Emergency Department with worsening pain in his abdomen and a CT scan showed free air and some possible information around the duodenum. The sigmoid colon showed some diverticular disease, although active inflammation was not identified. He was brought to Surgery for exploration as to the source of his pneumoperitoneum. PAST SURGICAL HISTORY: No previous abdominal surgery. PAST MEDICAL HISTORY: History of hypertension and hyperlipidemia. Also, has had the back pain as noted above. ALLERGIES: No known drug allergies. ROUTINE MEDICATIONS: Listed on reconciliation sheet. FAMILY HISTORY: Heart failure in his father. SOCIAL HISTORY: He is a nonsmoker who drinks daily. REVIEW OF SYSTEMS: GENERAL: Denies chills or fever. RESPIRATORY: No productive cough or wheezing. CARDIAC: Denies chest pain or palpitations. GASTROINTESTINAL: See history of present illness. OBJECTIVE AND PHYSICAL EXAMINATION: GENERAL: Reveals a well-developed, well-nourished male who is alert and oriented, in some moderate distress due to abdominal pain. VITAL SIGNS: He is afebrile at 98.5, heart rate tachycardia 133 and blood pressure 109/63. HEENT: Normocephalic. EOMs intact. NECK: Supple. LUNGS: Clear. HEART: Has an increased rate. ABDOMEN: Belly is soft. There is tenderness to palpation throughout. GENITALIA: Deferred. RECTAL: Deferred. EXTREMITIES: Showed no gross skeletal abnormalities. NEUROLOGICAL: He is intact. LABORATORY DATA: Admission white count is 4800 and hemoglobin 11.4. RADIOLOGICAL DATA: CT scan of the abdomen and pelvis as discussed above. IMPRESSION: 1. Abdominal pain. I. Pneumoperitoneum. II. History of recent heavy nonsteroidal anti-inflammatory drugs use and steroids for sciatic pain suggesting possible perforated ulcer. III. Diverticular disease. 2. Alcohol use. PLAN: Exploration for closure of perforated viscus. Discussed the procedure with the patient and his including risks of bleeding, infection, need for further intervention depending on the source of the leak. He understands and will proceed. Thank you for asking me to see this nice gentleman and participate in his care. We will follow him with you during this hospitalization. MARY MARTINEZ MD DR: HIREN/bigg JOB#: [id number] / [id number]
--- NOTE | 2017-06-07 13:02 | PDOC ---
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 tsh normal levaquin and flagyl for now, fu with ID, fu abd fluid cx hold po meds banana bag daily, npo,add TPN for now replete Mag, K labs tmr gi ppx, dvt ppx ATIVAN prn hold ibuprofen intubated, try wean today if ok with pulm History of Present Illness History of Present Illness ROS : no fever, chills, sob or chest pain intubated, seen in ICU, on pressure support trial feels calm stable, has 1 Quirino and another 2 big abd drain npo ivf low Mag no afib, sinus now Vitals Vitals Vital Signs Date Time Temp Pulse Resp B/P (MAP) Pulse Ox O2 Delivery O2 Flow Rate FiO2 06/07/17 11:49 20 100 Nasal Cannula 2.0 06/07/17 08:00 82 137/68 (91) 06/07/17 04:00 99.2 99.2 Physical Exam Physical Exam intubated General: Alert, Oriented X3, No acute distress Heart: Regular rate, Normal S1, Normal S2, No murmurs Lungs: Clear Abdomen: Soft, Other (stoma viable, 1 QUIRINO, 2 big ABD drain, no BS) Extremities: No edema, Normal pulses Skin: No breakdown Labs LABS Laboratory Tests Test 06/06/17 14:42 06/06/17 15:35 06/07/17 03:00 06/07/17 03:55 Sodium Level 139 mmol/L (136-145) 139 mmol/L (136-145) Potassium Level 3.6 mmol/L (3.5-5.1) 3.9 mmol/L (3.5-5.1) Chloride Level 105 mmol/L (98-107) 106 mmol/L (98-107) Carbon Dioxide Level 26 mmol/L (21-32) 23 mmol/L (21-32) Anion Gap 8 (6-14) 10 (6-14) Blood Urea Nitrogen 24 mg/dL (8-26) 26 mg/dL (8-26) Creatinine 1.1 mg/dL (0.7-1.3) 1.1 mg/dL (0.7-1.3) Estimated GFR (Cockcroft-Gault) 67.0 67.0 Glucose Level 129 mg/dL (70-99) 146 mg/dL (70-99) Calcium Level 8.3 mg/dL (8.5-10.1) 7.9 mg/dL (8.5-10.1) O2 Saturation 99 % (92-99) Arterial Blood pH 7.32 (7.35-7.45) Arterial Blood pCO2 at Patient Temp 42 mmHg (35-46) Arterial Blood pO2 at Patient Temp 202 mmHg (65-108) Arterial Blood HCO3 21 mmol/L (21-28) Arterial Blood Base Excess -5 mmol/L (-3-3) FiO2 60 White Blood Count 9.7 x10^3/uL (4.0-11.0) Red Blood Count 3.45 x10^6/uL (4.30-5.70) Hemoglobin 10.1 g/dL (13.0-17.5) Hematocrit 30.0 % (39.0-53.0) Mean Corpuscular Volume 87 fL (79-100) Mean Corpuscular Hemoglobin 29 pg (25-35) Mean Corpuscular Hemoglobin Concent 34 g/dL (31-37) Red Cell Distribution Width 14.5 % (11.5-14.5) Platelet Count 216 x10^3/uL (140-400) Neutrophils (%) (Auto) 91 % (31-73) Lymphocytes (%) (Auto) 3 % (24-48) Monocytes (%) (Auto) 5 % (0-9) Eosinophils (%) (Auto) 1 % (0-3) Basophils (%) (Auto) 0 % (0-3) Neutrophils # (Auto) 8.8 x10^3uL (1.8-7.7) Lymphocytes # (Auto) 0.2 x10^3/uL (1.0-4.8) Monocytes # (Auto) 0.5 x10^3/uL (0.0-1.1) Eosinophils # (Auto) 0.1 x10^3/uL (0.0-0.7) Basophils # (Auto) 0.0 x10^3/uL (0.0-0.2) Phosphorus Level 3.3 mg/dL (2.6-4.7) Magnesium Level 1.5 mg/dL (1.8-2.4) Triglycerides Level 168 mg/dL (0-150) Cholesterol Level 75 mg/dL (0-200) LDL Cholesterol, Calculated 32 mg/dL (0-100) VLDL Cholesterol, Calculated 34 mg/dL (0-40) Non-HDL Cholesterol Calculated 66 mg/dL (0-129) HDL Cholesterol 9 mg/dL (40-60) Cholesterol/HDL Ratio 8.3 Test 06/07/17 08:30 O2 Saturation 98 % (92-99) Arterial Blood pH 7.39 (7.35-7.45) Arterial Blood pCO2 at Patient Temp 37 mmHg (35-46) Arterial Blood pO2 at Patient Temp 128 mmHg (65-108) Arterial Blood HCO3 22 mmol/L (21-28) Arterial Blood Base Excess -3 mmol/L (-3-3) FiO2 40 Assessment and Plan Assessmemt and Plan Problems Medical Problems: (1) Abdominal pain Status: Acute (2) Elevated brain natriuretic peptide (BNP) level Status: Acute (3) Hypomagnesemia Status: Acute (4) Perforated abdominal viscus Status: Acute Problems: Comment Review of Relevant I have reviewed the following items ananda (where applicable) has been applied. Labs Laboratory Tests Test 06/06/17 07:00 06/06/17 07:35 06/06/17 07:39 06/06/17 14:42 Thyroid Stimulating Hormone (TSH) 2.433 uIU/mL (0.358-3.74) White Blood Count 4.8 x10^3/uL (4.0-11.0) Red Blood Count 3.96 x10^6/uL (4.30-5.70) Hemoglobin 11.4 g/dL (13.0-17.5) Hematocrit 34.5 % (39.0-53.0) Mean Corpuscular Volume 87 fL (79-100) Mean Corpuscular Hemoglobin 29 pg (25-35) Mean Corpuscular Hemoglobin Concent 33 g/dL (31-37) Red Cell Distribution Width 14.0 % (11.5-14.5) Platelet Count 248 x10^3/uL (140-400) Neutrophils (%) (Auto) 91 % (31-73) Lymphocytes (%) (Auto) 6 % (24-48) Monocytes (%) (Auto) 3 % (0-9) Eosinophils (%) (Auto) 1 % (0-3) Basophils (%) (Auto) 0 % (0-3) Neutrophils # (Auto) 4.3 x10^3uL (1.8-7.7) Lymphocytes # (Auto) 0.3 x10^3/uL (1.0-4.8) Monocytes # (Auto) 0.1 x10^3/uL (0.0-1.1) Eosinophils # (Auto) 0.0 x10^3/uL (0.0-0.7) Basophils # (Auto) 0.0 x10^3/uL (0.0-0.2) Segmented Neutrophils % 79 % (35-66) Band Neutrophils % 6 % (0-9) Lymphocytes % 12 % (24-48) Monocytes % 3 % (0-10) Platelet Estimate Adequate (ADEQUATE) Prothrombin Time 13.9 SEC (11.7-14.0) Prothromb Time International Ratio 1.1 (0.8-1.1) Activated Partial Thromboplast Time 33 SEC (24-38) Sodium Level 136 mmol/L (136-145) 139 mmol/L (136-145) Potassium Level 2.4 mmol/L (3.5-5.1) 3.6 mmol/L (3.5-5.1) Chloride Level 98 mmol/L (98-107) 105 mmol/L (98-107) Carbon Dioxide Level 27 mmol/L (21-32) 26 mmol/L (21-32) Anion Gap 11 (6-14) 8 (6-14) Blood Urea Nitrogen 28 mg/dL (8-26) 24 mg/dL (8-26) Creatinine 1.5 mg/dL (0.7-1.3) 1.1 mg/dL (0.7-1.3) Estimated GFR (Cockcroft-Gault) 46.8 67.0 BUN/Creatinine Ratio 19 (6-20) Glucose Level 116 mg/dL (70-99) 129 mg/dL (70-99) Calcium Level 9.3 mg/dL (8.5-10.1) 8.3 mg/dL (8.5-10.1) Magnesium Level 1.6 mg/dL (1.8-2.4) Total Bilirubin 0.7 mg/dL (0.2-1.0) Aspartate Amino Transf (AST/SGOT) 21 U/L (15-37) Alanine Aminotransferase (ALT/SGPT) 27 U/L (16-63) Alkaline Phosphatase 102 U/L (46-116) Creatine Kinase 22 U/L (39-308) Troponin I Quantitative < 0.017 ng/mL (0.000-0.055) XF-Urh-H-Type Natriuretic Peptide 1003 pg/mL (0-124) Total Protein 6.1 g/dL (6.4-8.2) Albumin 2.0 g/dL (3.4-5.0) Albumin/Globulin Ratio 0.5 (1.0-1.7) Lipase 101 U/L (73-393) Ethyl Alcohol Level < 10 mg/dL (0-10) Urine Collection Type Unknown Urine Color Yellow Urine Clarity Clear Urine pH 6.0 Urine Specific [place] 1.015 Urine Protein 100 mg/dL (NEG-TRACE) Urine Glucose (UA) Negative mg/dL (NEG) Urine Ketones (Stick) Trace mg/dL (NEG) Urine Blood Negative (NEG) Urine Nitrite Negative (NEG) Urine Bilirubin Negative (NEG) Urine Urobilinogen Dipstick 1.0 mg/dL (0.2 mg/dL) Urine Leukocyte Esterase Negative (NEG) Urine RBC 0 /HPF (0-2) Urine WBC Occ /HPF (0-4) Urine Squamous Epithelial Cells Few /LPF Urine Bacteria Few /HPF (0-FEW) Urine Mucus Slight /LPF Urine Opiates Screen Neg (NEG) Urine Methadone Screen Neg (NEG) Urine Barbiturates Neg (NEG) Urine Phencyclidine Screen Neg (NEG) Urine Amphetamine/Methamphetamine Neg (NEG) Urine Benzodiazepines Screen Neg (NEG) Urine Cocaine Screen Neg (NEG) Urine Cannabinoids Screen Pos (NEG) Urine Ethyl Alcohol Neg (NEG) Test 06/06/17 15:35 06/07/17 03:00 06/07/17 03:55 06/07/17 08:30 O2 Saturation 99 % (92-99) 98 % (92-99) Arterial Blood pH 7.32 (7.35-7.45) 7.39 (7.35-7.45) Arterial Blood pCO2 at Patient Temp 42 mmHg (35-46) 37 mmHg (35-46) Arterial Blood pO2 at Patient Temp 202 mmHg (65-108) 128 mmHg (65-108) Arterial Blood HCO3 21 mmol/L (21-28) 22 mmol/L (21-28) Arterial Blood Base Excess -5 mmol/L (-3-3) -3 mmol/L (-3-3) FiO2 60 40 White Blood Count 9.7 x10^3/uL (4.0-11.0) Red Blood Count 3.45 x10^6/uL (4.30-5.70) Hemoglobin 10.1 g/dL (13.0-17.5) Hematocrit 30.0 % (39.0-53.0) Mean Corpuscular Volume 87 fL (79-100) Mean Corpuscular Hemoglobin 29 pg (25-35) Mean Corpuscular Hemoglobin Concent 34 g/dL (31-37) Red Cell Distribution Width 14.5 % (11.5-14.5) Platelet Count 216 x10^3/uL (140-400) Neutrophils (%) (Auto) 91 % (31-73) Lymphocytes (%) (Auto) 3 % (24-48) Monocytes (%) (Auto) 5 % (0-9) Eosinophils (%) (Auto) 1 % (0-3) Basophils (%) (Auto) 0 % (0-3) Neutrophils # (Auto) 8.8 x10^3uL (1.8-7.7) Lymphocytes # (Auto) 0.2 x10^3/uL (1.0-4.8) Monocytes # (Auto) 0.5 x10^3/uL (0.0-1.1) Eosinophils # (Auto) 0.1 x10^3/uL (0.0-0.7) Basophils # (Auto) 0.0 x10^3/uL (0.0-0.2) Sodium Level 139 mmol/L (136-145) Potassium Level 3.9 mmol/L (3.5-5.1) Chloride Level 106 mmol/L (98-107) Carbon Dioxide Level 23 mmol/L (21-32) Anion Gap 10 (6-14) Blood Urea Nitrogen 26 mg/dL (8-26) Creatinine 1.1 mg/dL (0.7-1.3) Estimated GFR (Cockcroft-Gault) 67.0 Glucose Level 146 mg/dL (70-99) Calcium Level 7.9 mg/dL (8.5-10.1) Phosphorus Level 3.3 mg/dL (2.6-4.7) Magnesium Level 1.5 mg/dL (1.8-2.4) Triglycerides Level 168 mg/dL (0-150) Cholesterol Level 75 mg/dL (0-200) LDL Cholesterol, Calculated 32 mg/dL (0-100) VLDL Cholesterol, Calculated 34 mg/dL (0-40) Non-HDL Cholesterol Calculated 66 mg/dL (0-129) HDL Cholesterol 9 mg/dL (40-60) Cholesterol/HDL Ratio 8.3 Laboratory Tests Test 06/06/17 14:42 06/06/17 15:35 06/07/17 03:00 06/07/17 03:55 Sodium Level 139 mmol/L (136-145) 139 mmol/L (136-145) Potassium Level 3.6 mmol/L (3.5-5.1) 3.9 mmol/L (3.5-5.1) Chloride Level 105 mmol/L (98-107) 106 mmol/L (98-107) Carbon Dioxide Level 26 mmol/L (21-32) 23 mmol/L (21-32) Anion Gap 8 (6-14) 10 (6-14) Blood Urea Nitrogen 24 mg/dL (8-26) 26 mg/dL (8-26) Creatinine 1.1 mg/dL (0.7-1.3) 1.1 mg/dL (0.7-1.3) Estimated GFR (Cockcroft-Gault) 67.0 67.0 Glucose Level 129 mg/dL (70-99) 146 mg/dL (70-99) Calcium Level 8.3 mg/dL (8.5-10.1) 7.9 mg/dL (8.5-10.1) O2 Saturation 99 % (92-99) Arterial Blood pH 7.32 (7.35-7.45) Arterial Blood pCO2 at Patient Temp 42 mmHg (35-46) Arterial Blood pO2 at Patient Temp 202 mmHg (65-108) Arterial Blood HCO3 21 mmol/L (21-28) Arterial Blood Base Excess -5 mmol/L (-3-3) FiO2 60 White Blood Count 9.7 x10^3/uL (4.0-11.0) Red Blood Count 3.45 x10^6/uL (4.30-5.70) Hemoglobin 10.1 g/dL (13.0-17.5) Hematocrit 30.0 % (39.0-53.0) Mean Corpuscular Volume 87 fL (79-100) Mean Corpuscular Hemoglobin 29 pg (25-35) Mean Corpuscular Hemoglobin Concent 34 g/dL (31-37) Red Cell Distribution Width 14.5 % (11.5-14.5) Platelet Count 216 x10^3/uL (140-400) Neutrophils (%) (Auto) 91 % (31-73) Lymphocytes (%) (Auto) 3 % (24-48) Monocytes (%) (Auto) 5 % (0-9) Eosinophils (%) (Auto) 1 % (0-3) Basophils (%) (Auto) 0 % (0-3) Neutrophils # (Auto) 8.8 x10^3uL (1.8-7.7) Lymphocytes # (Auto) 0.2 x10^3/uL (1.0-4.8) Monocytes # (Auto) 0.5 x10^3/uL (0.0-1.1) Eosinophils # (Auto) 0.1 x10^3/uL (0.0-0.7) Basophils # (Auto) 0.0 x10^3/uL (0.0-0.2) Phosphorus Level 3.3 mg/dL (2.6-4.7) Magnesium Level 1.5 mg/dL (1.8-2.4) Triglycerides Level 168 mg/dL (0-150) Cholesterol Level 75 mg/dL (0-200) LDL Cholesterol, Calculated 32 mg/dL (0-100) VLDL Cholesterol, Calculated 34 mg/dL (0-40) Non-HDL Cholesterol Calculated 66 mg/dL (0-129) HDL Cholesterol 9 mg/dL (40-60) Cholesterol/HDL Ratio 8.3 Test 06/07/17 08:30 O2 Saturation 98 % (92-99) Arterial Blood pH 7.39 (7.35-7.45) Arterial Blood pCO2 at Patient Temp 37 mmHg (35-46) Arterial Blood pO2 at Patient Temp 128 mmHg (65-108) Arterial Blood HCO3 22 mmol/L (21-28) Arterial Blood Base Excess -3 mmol/L (-3-3) FiO2 40 Microbiology 06/06/17 Anaerobic/Aerobic Culture, Resulted Pending 06/06/17 Anaerobic Culture Result 1 (AISSATOU), Resulted Pending 06/06/17 Aerobic Culture - Preliminary, Resulted 06/06/17 Aerobic Culture Result 1 (AISSATOU) - Preliminary, Resulted Medications Current Medications Sodium Chloride 1,000 ml @ 1,000 mls/hr 1X ONCE IV Last administered on 08:22; Start 06/06/17 at 08:30; Stop 06/06/17 at 09:29; Status DC Ondansetron HCl (Zofran) 8 mg 1X ONCE IV Last administered on 06/06/17 08:23 ; Start 06/06/17 at 08:30; Stop 06/06/17 at 08:31; Status DC Morphine Sulfate 5 mg 1X ONCE IV Last administered on 06/06/17 08:29; Start 06/06/17 at 08:30; Stop 06/06/17 at 08:31; Status DC Potassium Chloride (Klor-Con) 40 meq 1X ONCE PO Last administered on 09:31; Start 06/06/17 at 08:30; Stop 06/06/17 at 08:31; Status DC Potassium Chloride/Sodium Chloride 1,000 ml @ 250 mls/hr 1X ONCE IV Last administered on 06/06/17 09:36; Start 06/06/17 at 08:30; Stop 06/06/17 at 12:29 ; Status DC Iohexol (Omnipaque 300 Mg/ml) 60 ml 1X ONCE IV Last administered on 06/06/17 08:51; Start 06/06/17 at 08:45; Stop 06/06/17 at 08:46; Status DC Magnesium Oxide (Magnesium Oxide) 800 mg 1X STAT PO Last administered on 09:31; Start 06/06/17 at 08:37; Stop 06/06/17 at 08:40; Status DC Info (Do NOT chart on this entry -- for MONITORING) 1 each PRN DAILY PRN MC SEE COMMENTS; Start 06/06/17 at 08:45; Stop 06/08/17 at 08:44 Metronidazole 100 ml @ 100 mls/hr 1X ONCE IV Last administered on 06/06/17t 10:00; Start 06/06/17 at 09:30; Stop 06/06/17 at 10:29; Status DC Levofloxacin/ Dextrose (Levaquin Per Pharmacy) 1 each PRN DAILY PRN MC SEE COMMENTS; Start 06/06/17 at 09:30 Levofloxacin/ Dextrose 100 ml @ 100 mls/hr 1X ONCE IV ; Start 06/06/17 at 09: 30; Stop 06/06/17 at 10:29; Status DC Levofloxacin/ Dextrose 100 ml @ 100 mls/hr Q24H IV Last administered on t 11:36; Start 06/07/17 at 10:00 Rocuronium [place] (Zemuron) 100 mg STK-MED ONCE .ROUTE ; Start 06/06/17 at 10: 28; Stop 06/06/17 at 10:29; Status DC Fentanyl Citrate (Fentanyl 5ml Vial) 250 mcg STK-MED ONCE .ROUTE ; Start at 10:28; Stop 06/06/17 at 10:29; Status DC Propofol 20 ml @ As Directed STK-MED ONCE IV ; Start 06/06/17 at 10:32; Stop at 10:33; Status DC Lidocaine HCl (Lidocaine Pf 2% Vial) 5 ml STK-MED ONCE .ROUTE ; Start 06/06/17 at 10:32; Stop 06/06/17 at 10:33; Status DC Ondansetron HCl (Zofran) 4 mg STK-MED ONCE .ROUTE ; Start 06/06/17 at 10:33; Stop 06/06/17 at 10:34; Status DC Dexamethasone Sodium Phosphate (Decadron) 20 mg STK-MED ONCE .ROUTE ; Start 06/06/17 at 10:33; Stop 06/06/17 at 10:34; Status DC Multivitamins 10 ml/Folic Acid 1 mg/Thiamine HCl 100 mg/Ringer's Solution 1, 011.2 ml @ 1,000 mls/ hr 1X ONCE IV ; Start 06/06/17 at 11:30; Stop 06/06/17 at 12:30; Status DC Fentanyl Citrate (Fentanyl 2ml Vial) 25 mcg PRN Q5MIN PRN IV MILD PAIN; Start 06/06/17 at 11:45; Stop 06/07/17 at 11:44; Status DC Fentanyl Citrate (Fentanyl 2ml Vial) 50 mcg PRN Q5MIN PRN IV MODERATE PAIN Last administered on 06/06/17 17:24; Start 06/06/17 at 11:45; Stop 06/07/17 at 11:44; Status DC Morphine Sulfate 1 mg PRN Q10MIN PRN IV SEVERE PAIN Last administered on 15:38; Start 06/06/17 at 11:45; Stop 06/07/17 at 11:44; Status DC Ringer's Solution 1,000 ml @ 30 mls/hr Q24H IV ; Start 06/06/17 at 11:39; Stop 06/06/17 at 23:38; Status DC Lidocaine HCl (Xylocaine-Mpf 1% Vial) 2 ml 1X PRN PRN ID IV START; Start at 11:45; Stop 06/07/17 at 11:44; Status DC Hydromorphone HCl (Dilaudid) 0.5 mg PRN Q10MIN PRN IV SEV PAIN, Second choice; Start 06/06/17 at 11:45; Stop 06/07/17 at 11:44; Status DC Prochlorperazine Edisylate (Compazine) 5 mg PACU PRN PRN IV NAUSEA, MRX1; Start 06/06/17 at 11:45; Stop 06/07/17 at 11:44; Status DC Phenylephrine HCl (Pedro-Synephrine Inj) 10 mg STK-MED ONCE .ROUTE ; Start at 11:58; Stop 06/06/17 at 11:59; Status DC Sodium Chloride (Sodium Chloride) 50 ml STK-MED ONCE IJ ; Start 06/06/17 at 11: 58; Stop 06/06/17 at 11:59; Status DC Sevoflurane (Ultane) 90 ml STK-MED ONCE IH ; Start 06/06/17 at 13:52; Stop 06/06 at 13:53; Status DC Neostigmine Methylsulfate 5 mg STK-MED ONCE .ROUTE ; Start 06/06/17 at 13:52; Stop 06/06/17 at 13:53; Status DC Glycopyrrolate (Robinul) 1 mg STK-MED ONCE .ROUTE ; Start 06/06/17 at 13:52; Stop 06/06/17 at 13:53; Status DC Fentanyl Citrate (Fentanyl 2ml Vial) 100 mcg STK-MED ONCE .ROUTE ; Start at 14:18; Stop 06/06/17 at 14:19; Status DC Diphenhydramine HCl (Benadryl) 25 mg PRN Q6HRS PRN IV ITCHING; Start 06/06/17 at 14:30 Enoxaparin Sodium (Lovenox 40mg Syringe) 40 mg Q24H SQ Last administered on 15:00; Start 06/06/17 at 15:00; Stop 06/06/17 at 15:41; Status DC Sodium Chloride (Normal Saline Flush) 3 ml QSHIFT PRN IV AFTER MEDS AND BLOOD DRAWS; Start 06/06/17 at 14:30 Potassium Chloride/Sodium Chloride 1,000 ml @ 100 mls/hr Q10H IV Last administered on 06/07/17 03:00; Start 06/06/17 at 15:00 Hydromorphone HCl 30 ml @ 0 mls/hr CONT PRN PRN IV PROTOCOL; Start 06/06/17 at 14:30; Stop 06/06/17 at 17:30; Status DC Ondansetron HCl (Zofran) 4 mg PRN Q6HRS PRN IV NAUESA, 1ST CHOICE; Start at 14:30 Epinephrine (S2 Racepinephrine) 0.5 ml STK-MED ONCE .ROUTE ; Start 06/06/17 at 14:35; Stop 06/06/17 at 14:36; Status DC Propofol 50 ml @ As Directed STK-MED ONCE IV ; Start 06/06/17 at 14:38; Stop at 14:39; Status DC Succinylcholine Chloride (Anectine) 200 mg STK-MED ONCE .ROUTE ; Start 06/06/17 at 14:40; Stop 06/06/17 at 14:41; Status DC Epinephrine (S2 Racepinephrine) 0.5 ml 1X ONCE NEB Last administered on 14:43; Start 06/06/17 at 14:36; Stop 06/06/17 at 14:43; Status DC Midazolam HCl (Versed) 2 mg STK-MED ONCE .ROUTE ; Start 06/06/17 at 14:48; Stop 06/06/17 at 14:49; Status DC Propofol 100 ml @ 0 mls/hr CONT PRN IV SEE I/O RECORD; Start 06/06/17 at 15:15 Propofol 50 ml @ As Directed STK-MED ONCE IV ; Start 06/06/17 at 15:03; Stop at 15:04; Status DC Dexamethasone Sodium Phosphate (Decadron) 12 mg 1X ONCE IV Last administered on 06/06/17 15:09; Start 06/06/17 at 15:00; Stop 06/06/17 at 15:06; Status DC Dexamethasone Sodium Phosphate (Decadron) 4 mg STK-MED ONCE .ROUTE ; Start 06/06 at 15:05; Stop 06/06/17 at 15:06; Status DC Propofol 50 ml @ 0 mls/hr 1X ONCE IV Last administered on 06/06/17 15:02; Start 06/06/17 at 15:15; Stop 06/06/17 at 15:16; Status DC Succinylcholine Chloride (Anectine) 200 mg 1X ONCE IV ; Start 06/06/17 at 15:15 ; Stop 06/06/17 at 15:16; Status DC Midazolam HCl (Versed) 2 mg 1X ONCE IV ; Start 06/06/17 at 15:15; Stop at 15:16; Status DC Cellulose 1 each STK-MED ONCE .ROUTE Last administered on 06/06/17 13:35; Start 06/06/17 at 14:19; Stop 06/06/17 at 15:20; Status DC Enoxaparin Sodium (Lovenox 40mg Syringe) 40 mg Q24H SQ Last administered on 10:27; Start 06/07/17 at 09:00 Metronidazole 100 ml @ 100 mls/hr Q12HR IV Last administered on 06/07/17 11: 07; Start 06/06/17 at 21:00 Multivitamins 10 ml/Folic Acid 1 mg/Thiamine HCl 100 mg/Dextrose/ Lactated Ringer's 1,011.2 ml @ 100 mls/ hr DAILY IV Last administered on 06/07/17 09: 21; Start 06/07/17 at 09:00; Stop 06/12/17 at 10:00 Lorazepam (Ativan) 2 mg PRN Q4HRS PRN IV ANXIETY / AGITATION; Start 06/06/17 at 15:45 Famotidine (Pepcid) 20 mg BID IVP Last administered on 06/07/17 09:29; Start 06/06/17 at 21:00 Morphine Sulfate 2 mg PRN Q2HR PRN IV PAIN; Start 06/06/17 at 15:45 Morphine Sulfate 4 mg PRN Q2HR PRN IV PAIN; Start 06/06/17 at 15:45 Ondansetron HCl (Zofran) 4 mg PRN Q6HRS PRN IV NAUSEA/VOMITING; Start 06/06/17 at 15:45; Stop 06/06/17 at 15:45; Status DC Fentanyl Citrate 30 ml @ 0 mls/hr CONT PRN IV PROTOCOL Last administered on 02:54; Start 06/06/17 at 17:30; Stop 06/07/17 at 10:39; Status DC Midazolam HCl 100 ml @ 0 mls/hr CONT PRN IV SEE I/O RECORD; Start 06/06/17 at 23:00 Sodium Chloride 1,000 ml @ 1,000 mls/hr 1X ONCE IV Last administered on 23:34; Start 06/06/17 at 23:00; Stop 06/06/17 at 23:59; Status DC Magnesium Sulfate/ Dextrose 50 ml @ 25 mls/hr 1X ONCE IV Last administered on 06/07/17 09:28; Start 06/07/17 at 08:15; Stop 06/07/17 at 10:14; Status DC Info 1 each PRN DAILY PRN MC SEE COMMENTS; Start 06/07/17 at 09:30 Methylprednisolone Sodium Succinate (SOLU-Medrol 125MG VIAL) 50 mg DAILY IV Last administered on 06/07/17 11:14; Start 06/07/17 at 11:00 Hydromorphone HCl 30 ml @ 0 mls/hr CONT PRN PRN IV PROTOCOL Last administered on 06/07/17 11:16; Start 06/07/17 at 10:45 Active Scripts Active Reported [prednisone taper] Metoprolol Succinate ( Xl ) (Metoprolol Succinate) 100 Mg Tab.er.24h 1 Tab PO DAILY Lisinopril 10 Mg Tablet 1 Tab PO DAILY Hydrochlorothiazide Tablet (Hydrochlorothiazide) 50 Mg Tablet 25 Tab PO DAILY Vitals/I & O Vital Sign - Last 24 Hours 06/06/17 06/06/17 06/06/17 06/06/17 14:21 14:21 14:36 14:51 Temp 97.5 97.5 Pulse 110 124 120 Resp 22 22 20 B/P (MAP) 195/107 195/107 85/48 Pulse Ox 93 100 100 O2 Delivery Mask Simple Mask Bag Valve Mask Bag Valve Mask O2 Flow Rate 10 10 10 10 06/06/17 06/06/17 06/06/17 06/06/17 15:06 15:13 15:22 15:27 Temp 97.3 97.3 Pulse 116 113 Resp 14 14 14 B/P (MAP) 98/54 157/82 Pulse Ox 100 100 100 100 O2 Delivery Ventilator Ventilator Ventilator Ventilator 06/06/17 06/06/17 06/06/17 06/06/17 15:37 15:38 15:52 16:07 Pulse 114 102 106 Resp 20 14 20 18 B/P (MAP) 150/68 102/60 108/59 Pulse Ox 100 100 100 100 O2 Delivery Ventilator Ventilator Ventilator Ventilator 06/06/17 06/06/17 06/06/17 06/06/17 16:22 16:30 16:45 16:45 Pulse 106 94 Resp 18 20 B/P (MAP) 116/64 116/64 Pulse Ox 100 100 O2 Delivery Ventilator Mechanical Ventilator Mechanical Ventilator Ventilator 06/06/17 06/06/17 06/06/17 06/06/17 17:00 17:15 17:24 17:30 Temp 98.5 98.5 Pulse 90 94 84 Resp 18 18 20 20 B/P (MAP) 127/71 (89) 122/74 (90) 83/53 (63) Pulse Ox 100 100 99 O2 Delivery Ventilator Ventilator Ventilator Ventilator 06/06/17 06/06/17 06/06/17 06/06/17 17:45 18:00 18:02 18:06 Pulse 88 90 Resp 20 20 B/P (MAP) 105/66 (79) 130/83 (99) Pulse Ox 100 100 100 100 O2 Delivery Ventilator Ventilator Ventilator O2 Flow Rate 10.0 06/06/17 06/06/17 06/06/17 06/06/17 18:12 18:15 18:30 18:42 Pulse 92 88 Resp 22 20 B/P (MAP) 91/60 (70) 79/51 (60) Pulse Ox 40 100 99 O2 Delivery Ventilator Ventilator Ventilator O2 Flow Rate 10.0 10.0 06/06/17 06/06/17 06/06/17 06/06/17 19:00 19:31 20:00 20:00 Temp 99.2 99.2 Pulse 86 84 Resp 20 20 B/P (MAP) 83/54 (64) 87/55 (66) Pulse Ox 100 99 100 O2 Delivery Ventilator Ventilator Mechanical Ventilator Ventilator 06/06/17 06/06/17 06/06/17 06/06/17 21:00 21:00 22:00 23:00 Pulse 86 84 Resp 20 20 B/P (MAP) 86/57 (67) 92/53 (66) Pulse Ox 100 99 100 100 O2 Delivery Ventilator Ventilator Ventilator Ventilator 06/06/17 06/06/17 06/07/17 06/07/17 23:00 23:45 00:00 00:00 Temp 99.3 99.3 Pulse 80 70 Resp 20 18 B/P (MAP) 71/48 (56) 99/58 (72) 111/60 (77) Pulse Ox 100 100 O2 Delivery Ventilator Mechanical Ventilator Ventilator 06/07/17 06/07/17 06/07/17 06/07/17 00:52 01:00 02:00 02:54 Pulse 86 84 Resp 18 18 19 B/P (MAP) 135/84 (101) 105/67 (80) Pulse Ox 100 100 99 100 O2 Delivery Ventilator Ventilator Ventilator Ventilator 06/07/17 06/07/17 06/07/17 06/07/17 03:00 03:15 03:30 04:00 Pulse 72 Resp 21 B/P (MAP) 122/54 (76) Pulse Ox 100 100 100 O2 Delivery Ventilator Ventilator Ventilator Mechanical Ventilator 06/07/17 06/07/17 06/07/17 06/07/17 04:00 05:00 05:45 06:00 Temp 99.2 99.2 Pulse 70 66 95 Resp 24 20 23 B/P (MAP) 110/63 (79) 114/65 (81) 115/64 (81) Pulse Ox 100 100 99 100 O2 Delivery Ventilator Ventilator Ventilator Ventilator 06/07/17 06/07/17 06/07/17 06/07/17 07:00 07:38 07:41 08:00 Pulse 78 82 Resp 17 14 B/P (MAP) 139/79 (99) 137/68 (91) Pulse Ox 100 100 99 O2 Delivery Ventilator Ventilator Ventilator cpap trial 06/07/17 06/07/17 06/07/17 09:20 11:16 11:49 Resp 22 20 Pulse Ox 99 100 O2 Delivery Nasal Cannula Nasal Cannula Nasal Cannula O2 Flow Rate 2.0 2.0 2.0 Intake and Output 06/07/17 06/07/17 06/08/17 15:00 23:00 07:00 Output Total 240 ml Balance -240 ml KRISTIN PEÑA MD Jun 07, 2017 13:02
--- NOTE | 2017-06-07 13:03 | PDOC ---
ASHLEIGH LOVELACE AUDITING SPECIALIST 06/07/17 1303: CARDIO Progress Notes Date and Time Date of Service 06/07/2017 Time of Evaluation 1245 Vitals Vitals Vital Signs Date Time Temp Pulse Resp B/P (MAP) Pulse Ox O2 Delivery O2 Flow Rate FiO2 06/07/17 11:49 20 100 Nasal Cannula 2.0 06/07/17 08:00 82 137/68 (91) 06/07/17 04:00 99.2 99.2 Weight Weight [ ] Input and Output Intake and Output Intake and Output 06/08/17 07:00 Output Total 240 ml Balance -240 ml Output Urine Total 240 ml Laboratory Labs Laboratory Tests Test 06/06/17 14:42 06/06/17 15:35 06/07/17 03:00 06/07/17 03:55 Sodium Level 139 mmol/L (136-145) 139 mmol/L (136-145) Potassium Level 3.6 mmol/L (3.5-5.1) 3.9 mmol/L (3.5-5.1) Chloride Level 105 mmol/L (98-107) 106 mmol/L (98-107) Carbon Dioxide Level 26 mmol/L (21-32) 23 mmol/L (21-32) Anion Gap 8 (6-14) 10 (6-14) Blood Urea Nitrogen 24 mg/dL (8-26) 26 mg/dL (8-26) Creatinine 1.1 mg/dL (0.7-1.3) 1.1 mg/dL (0.7-1.3) Estimated GFR (Cockcroft-Gault) 67.0 67.0 Glucose Level 129 mg/dL (70-99) 146 mg/dL (70-99) Calcium Level 8.3 mg/dL (8.5-10.1) 7.9 mg/dL (8.5-10.1) O2 Saturation 99 % (92-99) Arterial Blood pH 7.32 (7.35-7.45) Arterial Blood pCO2 at Patient Temp 42 mmHg (35-46) Arterial Blood pO2 at Patient Temp 202 mmHg (65-108) Arterial Blood HCO3 21 mmol/L (21-28) Arterial Blood Base Excess -5 mmol/L (-3-3) FiO2 60 White Blood Count 9.7 x10^3/uL (4.0-11.0) Red Blood Count 3.45 x10^6/uL (4.30-5.70) Hemoglobin 10.1 g/dL (13.0-17.5) Hematocrit 30.0 % (39.0-53.0) Mean Corpuscular Volume 87 fL (79-100) Mean Corpuscular Hemoglobin 29 pg (25-35) Mean Corpuscular Hemoglobin Concent 34 g/dL (31-37) Red Cell Distribution Width 14.5 % (11.5-14.5) Platelet Count 216 x10^3/uL (140-400) Neutrophils (%) (Auto) 91 % (31-73) Lymphocytes (%) (Auto) 3 % (24-48) Monocytes (%) (Auto) 5 % (0-9) Eosinophils (%) (Auto) 1 % (0-3) Basophils (%) (Auto) 0 % (0-3) Neutrophils # (Auto) 8.8 x10^3uL (1.8-7.7) Lymphocytes # (Auto) 0.2 x10^3/uL (1.0-4.8) Monocytes # (Auto) 0.5 x10^3/uL (0.0-1.1) Eosinophils # (Auto) 0.1 x10^3/uL (0.0-0.7) Basophils # (Auto) 0.0 x10^3/uL (0.0-0.2) Phosphorus Level 3.3 mg/dL (2.6-4.7) Magnesium Level 1.5 mg/dL (1.8-2.4) Triglycerides Level 168 mg/dL (0-150) Cholesterol Level 75 mg/dL (0-200) LDL Cholesterol, Calculated 32 mg/dL (0-100) VLDL Cholesterol, Calculated 34 mg/dL (0-40) Non-HDL Cholesterol Calculated 66 mg/dL (0-129) HDL Cholesterol 9 mg/dL (40-60) Cholesterol/HDL Ratio 8.3 Test 06/07/17 08:30 O2 Saturation 98 % (92-99) Arterial Blood pH 7.39 (7.35-7.45) Arterial Blood pCO2 at Patient Temp 37 mmHg (35-46) Arterial Blood pO2 at Patient Temp 128 mmHg (65-108) Arterial Blood HCO3 22 mmol/L (21-28) Arterial Blood Base Excess -3 mmol/L (-3-3) FiO2 40 Microbiology Micro Microbiology 06/06/17 Anaerobic/Aerobic Culture, Resulted Pending 06/06/17 Anaerobic Culture Result 1 (AISSATOU), Resulted Pending 06/06/17 Aerobic Culture - Preliminary, Resulted 06/06/17 Aerobic Culture Result 1 (AISSATOU) - Preliminary, Resulted Assessment Assessment 1. New onset atrial fib: multifactorial with notable perforated viscus, lyte imbalance, ETOH. On SR. 2. +coronary calcium score: good cardiac tolerance with surgery noted below. TTE with normal wall motion and EF. 3. Alcoholism 4. Perforated bowel: S/P Ex lap with sigmoid resection and colostomy placement Recommendations 1. Replace Mg. 2. Continue with rhythm monitoring. No recurrence of AFIB. Will arrange for event monitor. 3. If recurrence of AFIB then will consider for starting metoprolol. 4. Cardiology follow as an outpt. ISAAC CORTES MD 06/07/17 0778: CARDIO Progress Notes Assessment Assessment The patient was seen and examined. He is looking much better today. Atrial fibrillation. Episodes of atrial fibrillation prior to surgery. Has remained in sinus rhythm since then. Echocardiogram today. Continue present treatments with probable outpatient follow-up. Status post operative perforated viscus. Postop day #1. Patient extubated. He looks and feels better. Followed by the surgical service. Hypertension. Continue to monitor and adjust medications as needed. ASHLEIGH LOVELACE APRN Jun 07, 2017 13:03 ISAAC CORTES MD Jun 07, 2017 16:48
[2017-06-07] MEDS: TPN PER PHARMACY MC PRN (13:33)
--- NOTE | 2017-06-07 13:52 | PDOC ---
PULMONARY PROGRESS NOTES Subjective PT A/A NO DISTRESS Vitals Vital Signs Date Time Temp Pulse Resp B/P (MAP) Pulse Ox O2 Delivery O2 Flow Rate FiO2 06/07/17 11:49 20 100 Nasal Cannula 2.0 06/07/17 08:00 82 137/68 (91) 06/07/17 04:00 99.2 99.2 ROS: No Nausea, No Chest Pain, No Increase Cough General: Alert Lungs: Clear Cardiovascular: S1, S2 Abdomen: Soft Neuro Exam: Alert Extremities: No Edema Skin: Warm Labs Laboratory Tests Test 06/06/17 07:00 06/06/17 07:35 06/06/17 07:39 06/06/17 14:42 Thyroid Stimulating Hormone (TSH) 2.433 uIU/mL (0.358-3.74) White Blood Count 4.8 x10^3/uL (4.0-11.0) Red Blood Count 3.96 x10^6/uL (4.30-5.70) Hemoglobin 11.4 g/dL (13.0-17.5) Hematocrit 34.5 % (39.0-53.0) Mean Corpuscular Volume 87 fL (79-100) Mean Corpuscular Hemoglobin 29 pg (25-35) Mean Corpuscular Hemoglobin Concent 33 g/dL (31-37) Red Cell Distribution Width 14.0 % (11.5-14.5) Platelet Count 248 x10^3/uL (140-400) Neutrophils (%) (Auto) 91 % (31-73) Lymphocytes (%) (Auto) 6 % (24-48) Monocytes (%) (Auto) 3 % (0-9) Eosinophils (%) (Auto) 1 % (0-3) Basophils (%) (Auto) 0 % (0-3) Neutrophils # (Auto) 4.3 x10^3uL (1.8-7.7) Lymphocytes # (Auto) 0.3 x10^3/uL (1.0-4.8) Monocytes # (Auto) 0.1 x10^3/uL (0.0-1.1) Eosinophils # (Auto) 0.0 x10^3/uL (0.0-0.7) Basophils # (Auto) 0.0 x10^3/uL (0.0-0.2) Segmented Neutrophils % 79 % (35-66) Band Neutrophils % 6 % (0-9) Lymphocytes % 12 % (24-48) Monocytes % 3 % (0-10) Platelet Estimate Adequate (ADEQUATE) Prothrombin Time 13.9 SEC (11.7-14.0) Prothromb Time International Ratio 1.1 (0.8-1.1) Activated Partial Thromboplast Time 33 SEC (24-38) Sodium Level 136 mmol/L (136-145) 139 mmol/L (136-145) Potassium Level 2.4 mmol/L (3.5-5.1) 3.6 mmol/L (3.5-5.1) Chloride Level 98 mmol/L (98-107) 105 mmol/L (98-107) Carbon Dioxide Level 27 mmol/L (21-32) 26 mmol/L (21-32) Anion Gap 11 (6-14) 8 (6-14) Blood Urea Nitrogen 28 mg/dL (8-26) 24 mg/dL (8-26) Creatinine 1.5 mg/dL (0.7-1.3) 1.1 mg/dL (0.7-1.3) Estimated GFR (Cockcroft-Gault) 46.8 67.0 BUN/Creatinine Ratio 19 (6-20) Glucose Level 116 mg/dL (70-99) 129 mg/dL (70-99) Calcium Level 9.3 mg/dL (8.5-10.1) 8.3 mg/dL (8.5-10.1) Magnesium Level 1.6 mg/dL (1.8-2.4) Total Bilirubin 0.7 mg/dL (0.2-1.0) Aspartate Amino Transf (AST/SGOT) 21 U/L (15-37) Alanine Aminotransferase (ALT/SGPT) 27 U/L (16-63) Alkaline Phosphatase 102 U/L (46-116) Creatine Kinase 22 U/L (39-308) Troponin I Quantitative < 0.017 ng/mL (0.000-0.055) PB-Bsa-N-Type Natriuretic Peptide 1003 pg/mL (0-124) Total Protein 6.1 g/dL (6.4-8.2) Albumin 2.0 g/dL (3.4-5.0) Albumin/Globulin Ratio 0.5 (1.0-1.7) Lipase 101 U/L (73-393) Ethyl Alcohol Level < 10 mg/dL (0-10) Urine Collection Type Unknown Urine Color Yellow Urine Clarity Clear Urine pH 6.0 Urine Specific [place] 1.015 Urine Protein 100 mg/dL (NEG-TRACE) Urine Glucose (UA) Negative mg/dL (NEG) Urine Ketones (Stick) Trace mg/dL (NEG) Urine Blood Negative (NEG) Urine Nitrite Negative (NEG) Urine Bilirubin Negative (NEG) Urine Urobilinogen Dipstick 1.0 mg/dL (0.2 mg/dL) Urine Leukocyte Esterase Negative (NEG) Urine RBC 0 /HPF (0-2) Urine WBC Occ /HPF (0-4) Urine Squamous Epithelial Cells Few /LPF Urine Bacteria Few /HPF (0-FEW) Urine Mucus Slight /LPF Urine Opiates Screen Neg (NEG) Urine Methadone Screen Neg (NEG) Urine Barbiturates Neg (NEG) Urine Phencyclidine Screen Neg (NEG) Urine Amphetamine/Methamphetamine Neg (NEG) Urine Benzodiazepines Screen Neg (NEG) Urine Cocaine Screen Neg (NEG) Urine Cannabinoids Screen Pos (NEG) Urine Ethyl Alcohol Neg (NEG) Test 06/06/17 15:35 06/07/17 03:00 06/07/17 03:55 06/07/17 08:30 O2 Saturation 99 % (92-99) 98 % (92-99) Arterial Blood pH 7.32 (7.35-7.45) 7.39 (7.35-7.45) Arterial Blood pCO2 at Patient Temp 42 mmHg (35-46) 37 mmHg (35-46) Arterial Blood pO2 at Patient Temp 202 mmHg (65-108) 128 mmHg (65-108) Arterial Blood HCO3 21 mmol/L (21-28) 22 mmol/L (21-28) Arterial Blood Base Excess -5 mmol/L (-3-3) -3 mmol/L (-3-3) FiO2 60 40 White Blood Count 9.7 x10^3/uL (4.0-11.0) Red Blood Count 3.45 x10^6/uL (4.30-5.70) Hemoglobin 10.1 g/dL (13.0-17.5) Hematocrit 30.0 % (39.0-53.0) Mean Corpuscular Volume 87 fL (79-100) Mean Corpuscular Hemoglobin 29 pg (25-35) Mean Corpuscular Hemoglobin Concent 34 g/dL (31-37) Red Cell Distribution Width 14.5 % (11.5-14.5) Platelet Count 216 x10^3/uL (140-400) Neutrophils (%) (Auto) 91 % (31-73) Lymphocytes (%) (Auto) 3 % (24-48) Monocytes (%) (Auto) 5 % (0-9) Eosinophils (%) (Auto) 1 % (0-3) Basophils (%) (Auto) 0 % (0-3) Neutrophils # (Auto) 8.8 x10^3uL (1.8-7.7) Lymphocytes # (Auto) 0.2 x10^3/uL (1.0-4.8) Monocytes # (Auto) 0.5 x10^3/uL (0.0-1.1) Eosinophils # (Auto) 0.1 x10^3/uL (0.0-0.7) Basophils # (Auto) 0.0 x10^3/uL (0.0-0.2) Sodium Level 139 mmol/L (136-145) Potassium Level 3.9 mmol/L (3.5-5.1) Chloride Level 106 mmol/L (98-107) Carbon Dioxide Level 23 mmol/L (21-32) Anion Gap 10 (6-14) Blood Urea Nitrogen 26 mg/dL (8-26) Creatinine 1.1 mg/dL (0.7-1.3) Estimated GFR (Cockcroft-Gault) 67.0 Glucose Level 146 mg/dL (70-99) Calcium Level 7.9 mg/dL (8.5-10.1) Phosphorus Level 3.3 mg/dL (2.6-4.7) Magnesium Level 1.5 mg/dL (1.8-2.4) Triglycerides Level 168 mg/dL (0-150) Cholesterol Level 75 mg/dL (0-200) LDL Cholesterol, Calculated 32 mg/dL (0-100) VLDL Cholesterol, Calculated 34 mg/dL (0-40) Non-HDL Cholesterol Calculated 66 mg/dL (0-129) HDL Cholesterol 9 mg/dL (40-60) Cholesterol/HDL Ratio 8.3 Laboratory Tests Test 06/06/17 14:42 06/06/17 15:35 06/07/17 03:00 06/07/17 03:55 Sodium Level 139 mmol/L (136-145) 139 mmol/L (136-145) Potassium Level 3.6 mmol/L (3.5-5.1) 3.9 mmol/L (3.5-5.1) Chloride Level 105 mmol/L (98-107) 106 mmol/L (98-107) Carbon Dioxide Level 26 mmol/L (21-32) 23 mmol/L (21-32) Anion Gap 8 (6-14) 10 (6-14) Blood Urea Nitrogen 24 mg/dL (8-26) 26 mg/dL (8-26) Creatinine 1.1 mg/dL (0.7-1.3) 1.1 mg/dL (0.7-1.3) Estimated GFR (Cockcroft-Gault) 67.0 67.0 Glucose Level 129 mg/dL (70-99) 146 mg/dL (70-99) Calcium Level 8.3 mg/dL (8.5-10.1) 7.9 mg/dL (8.5-10.1) O2 Saturation 99 % (92-99) Arterial Blood pH 7.32 (7.35-7.45) Arterial Blood pCO2 at Patient Temp 42 mmHg (35-46) Arterial Blood pO2 at Patient Temp 202 mmHg (65-108) Arterial Blood HCO3 21 mmol/L (21-28) Arterial Blood Base Excess -5 mmol/L (-3-3) FiO2 60 White Blood Count 9.7 x10^3/uL (4.0-11.0) Red Blood Count 3.45 x10^6/uL (4.30-5.70) Hemoglobin 10.1 g/dL (13.0-17.5) Hematocrit 30.0 % (39.0-53.0) Mean Corpuscular Volume 87 fL (79-100) Mean Corpuscular Hemoglobin 29 pg (25-35) Mean Corpuscular Hemoglobin Concent 34 g/dL (31-37) Red Cell Distribution Width 14.5 % (11.5-14.5) Platelet Count 216 x10^3/uL (140-400) Neutrophils (%) (Auto) 91 % (31-73) Lymphocytes (%) (Auto) 3 % (24-48) Monocytes (%) (Auto) 5 % (0-9) Eosinophils (%) (Auto) 1 % (0-3) Basophils (%) (Auto) 0 % (0-3) Neutrophils # (Auto) 8.8 x10^3uL (1.8-7.7) Lymphocytes # (Auto) 0.2 x10^3/uL (1.0-4.8) Monocytes # (Auto) 0.5 x10^3/uL (0.0-1.1) Eosinophils # (Auto) 0.1 x10^3/uL (0.0-0.7) Basophils # (Auto) 0.0 x10^3/uL (0.0-0.2) Phosphorus Level 3.3 mg/dL (2.6-4.7) Magnesium Level 1.5 mg/dL (1.8-2.4) Triglycerides Level 168 mg/dL (0-150) Cholesterol Level 75 mg/dL (0-200) LDL Cholesterol, Calculated 32 mg/dL (0-100) VLDL Cholesterol, Calculated 34 mg/dL (0-40) Non-HDL Cholesterol Calculated 66 mg/dL (0-129) HDL Cholesterol 9 mg/dL (40-60) Cholesterol/HDL Ratio 8.3 Test 06/07/17 08:30 O2 Saturation 98 % (92-99) Arterial Blood pH 7.39 (7.35-7.45) Arterial Blood pCO2 at Patient Temp 37 mmHg (35-46) Arterial Blood pO2 at Patient Temp 128 mmHg (65-108) Arterial Blood HCO3 22 mmol/L (21-28) Arterial Blood Base Excess -3 mmol/L (-3-3) FiO2 40 Medications Active Scripts Medications Dose Route/Sig Max Daily Dose Days Date Category [prednisone taper] 06/07/17 Reported Metoprolol Succinate ( Xl ) (Metoprolol Succinate) 100 Mg Tab.er.24h 1 Tab PO DAILY 06/07/17 Reported Lisinopril 10 Mg Tablet 1 Tab PO DAILY 06/07/17 Reported Hydrochlorothiazide Tablet (Hydrochlorothiazide) 50 Mg Tablet 25 Tab PO DAILY 06/07/17 Reported Impression . IMPRESSION: 1. Acute respiratory failure, expected status post exploratory laparotomy. 2. Emergent exploratory laparotomy for perforated viscus. 3. History of alcoholism. 4. Hypertension. 5. Hyperlipidemia. 6. Severe protein malnutrition, present upon admission. 7. Hypokalemia. 8. Acute kidney injury. PREOPERATIVE DIAGNOSIS: Perforated viscus. POSTOPERATIVE DIAGNOSIS: Perforated viscus secondary to perforated sigmoid diverticulitis with fecal spillage. PROCEDURES: 1. Exploratory laparotomy. 2. Sigmoid resection with end colostomy, Eufemia's pouch. Plan . PT DID WELL ON TRAIL THIS AM NOW EXTUBATED NO RESP DISTRESS OR COMPLAINTS POST OP CARE D/W CONNIE HOLDER MD Jun 07, 2017 13:52
[2017-06-07] MEDS ORDERED: FLU VACC QS2017-18 (36MOS+)/PF 0.5 ML SYRINGE. VAX IM ONE (16:15)
[2017-06-07] MEDS ORDERED: PNEUMOCOCCAL VAX SCREEN BY RX. MC PRN (16:45)
[2017-06-07] MEDS ORDERED: PNEUMOC CONJ VACC 23-VALENT 0.5 ML VIAL. VAX IM ONE (17:00)
[2017-06-07] MEDS ORDERED: TOTAL PARENTERAL NUTRITION 1,424.9987 ML, AMINO ACIDS 10 % 60 GM, DEXTROSE 70 % IN WATE... IV SCH ×10 (22:00)
[2017-06-08] VITALS (17 sets, daily range): BP systolic 130–177; BP diastolic 68–92
[2017-06-08 05:46] LABS: CALCIUM 8.1 mg/dL (8.5-10.1); GFR 74.8; PHOSPHORUS 1.9 mg/dL (2.6-4.7); POTASSIUM 4.1 mmol/L (3.5-5.1)
[2017-06-08] MEDS: TPN PER PHARMACY MC PRN ×3 (08:51→11:31)
[2017-06-08] MEDS ORDERED: SODIUM PHOSPHATE 20 MMOL in IV DEXTROSE 5% 250 ML IV ONE (09:00)
[2017-06-08] MEDS ORDERED: MINERAL OIL/PETROLATUM,WHITE OPHTH OINT 3.5GM TUBE. OU PRN (09:15)
--- NOTE | 2017-06-08 09:46 | PDOC ---
Infectious Disease Note Subjective Subjective pt is feeling good, up in chair ROS ROS GEN: Denies fevers, chills, sweats HEENT: Denies blurred vision, sore throat CV: Denies chest pain RESP: Denies shortness of air, cough GI: Denies n/v/d NEURO: Denies confusion, dizziness MSK: Denies weakness, joint pain/swelling Vital Sign Vital Signs Vital Signs Date Time Temp Pulse Resp B/P (MAP) Pulse Ox O2 Delivery O2 Flow Rate FiO2 06/08/17 09:00 68 10 154/85 (108) 96 Room Air 06/08/17 08:00 99.4 99.4 06/08/17 07:00 2.0 Physical Exam PHYSICAL EXAM GENERAL: NAD, Alert HEENT: PERRL, OC/OP NECK: Supple, no JVD, no LN LUNGS: Clear HEART: S1S2, no gallop, no murmur ABD: Soft, NT, no organomegaly, no rebound EXT: No edema, no cyanosis,, incision good IMPREGNATION OPERATOR: Alert, oriented x 3, no focal neurologic deficit SKIN: No rash IV: ok Labs Lab Laboratory Tests Test 06/08/17 00:07 06/08/17 05:15 Glucose (Fingerstick) 239 mg/dL (70-99) Sodium Level 139 mmol/L (136-145) Potassium Level 4.1 mmol/L (3.5-5.1) Chloride Level 108 mmol/L (98-107) Carbon Dioxide Level 26 mmol/L (21-32) Anion Gap 5 (6-14) Blood Urea Nitrogen 32 mg/dL (8-26) Creatinine 1.0 mg/dL (0.7-1.3) Estimated GFR (Cockcroft-Gault) 74.8 Glucose Level 198 mg/dL (70-99) Calcium Level 8.1 mg/dL (8.5-10.1) Phosphorus Level 1.9 mg/dL (2.6-4.7) Magnesium Level 2.0 mg/dL (1.8-2.4) Micro ANAEROBIC-AEROBIC CULTURE PENDING ANAEROBIC RES 1 PENDING AEROBIC CULT Final Final report AEROBIC RES 1 Final Escherichia coli Moderate growth AEROBIC RES 2 Final Mixed site destinee. Light growth ANTIMICROBIAL SUSCEPTIBILITY Final Comment S = Susceptible; I = Intermediate; R = Resistant P = Positive; N = Negative MICS are expressed in micrograms per mL Antibiotic RSLT#1 RSLT#2 RSLT#3 RSLT#4 Amoxicillin/Clavulanic Acid S Ampicillin R Cefepime S Ceftriaxone S Cefuroxime S Ciprofloxacin R Ertapenem S Gentamicin S Imipenem S Levofloxacin R Piperacillin R Tetracycline S Tobramycin S CONTINUED ON NEXT PAGE RUN DATE: 06/08/17 PAGE 2 RUN TIME: 732 [facility] [address] [place] [address] Kev Montoya M.D., Community Planning Technician SPEC: [id number] PATIENT: GOPI RODRIGUEZ Travis [id number] ( Continued) Procedure Result ANTIMICROBIAL SUSCEPTIBILITY Final (continued) Trimethoprim/Sulfa S Performed at: [address] [id number] Monkey Trainer: Alexia Greer MD, Phone: [phone] Objective Assessment Perforated viscus with fecal peritonitis Abdominal pain HTN Respiratory failure Chronic back pain Plan Plan of Care cont rocephine and flagyl supportive care will check cultures and adjust JYOTI JIANG MD Jun 08, 2017 09:46
--- NOTE | 2017-06-08 10:11 | PDOC ---
PULMONARY PROGRESS NOTES Subjective PT SITTING UP IN CHAIR Vitals Vital Signs Date Time Temp Pulse Resp B/P (MAP) Pulse Ox O2 Delivery O2 Flow Rate FiO2 06/08/17 09:00 68 10 154/85 (108) 96 Room Air 06/08/17 08:00 99.4 99.4 06/08/17 07:00 2.0 ROS: No Nausea, No Chest Pain, No Increase Cough General: Alert Lungs: Clear Cardiovascular: S1, S2 Abdomen: Soft Neuro Exam: Alert Extremities: No Edema Skin: Warm Labs Laboratory Tests Test 06/06/17 14:42 06/06/17 15:35 06/07/17 03:00 06/07/17 03:55 Sodium Level 139 mmol/L (136-145) 139 mmol/L (136-145) Potassium Level 3.6 mmol/L (3.5-5.1) 3.9 mmol/L (3.5-5.1) Chloride Level 105 mmol/L (98-107) 106 mmol/L (98-107) Carbon Dioxide Level 26 mmol/L (21-32) 23 mmol/L (21-32) Anion Gap 8 (6-14) 10 (6-14) Blood Urea Nitrogen 24 mg/dL (8-26) 26 mg/dL (8-26) Creatinine 1.1 mg/dL (0.7-1.3) 1.1 mg/dL (0.7-1.3) Estimated GFR (Cockcroft-Gault) 67.0 67.0 Glucose Level 129 mg/dL (70-99) 146 mg/dL (70-99) Calcium Level 8.3 mg/dL (8.5-10.1) 7.9 mg/dL (8.5-10.1) O2 Saturation 99 % (92-99) Arterial Blood pH 7.32 (7.35-7.45) Arterial Blood pCO2 at Patient Temp 42 mmHg (35-46) Arterial Blood pO2 at Patient Temp 202 mmHg (65-108) Arterial Blood HCO3 21 mmol/L (21-28) Arterial Blood Base Excess -5 mmol/L (-3-3) FiO2 60 White Blood Count 9.7 x10^3/uL (4.0-11.0) Red Blood Count 3.45 x10^6/uL (4.30-5.70) Hemoglobin 10.1 g/dL (13.0-17.5) Hematocrit 30.0 % (39.0-53.0) Mean Corpuscular Volume 87 fL (79-100) Mean Corpuscular Hemoglobin 29 pg (25-35) Mean Corpuscular Hemoglobin Concent 34 g/dL (31-37) Red Cell Distribution Width 14.5 % (11.5-14.5) Platelet Count 216 x10^3/uL (140-400) Neutrophils (%) (Auto) 91 % (31-73) Lymphocytes (%) (Auto) 3 % (24-48) Monocytes (%) (Auto) 5 % (0-9) Eosinophils (%) (Auto) 1 % (0-3) Basophils (%) (Auto) 0 % (0-3) Neutrophils # (Auto) 8.8 x10^3uL (1.8-7.7) Lymphocytes # (Auto) 0.2 x10^3/uL (1.0-4.8) Monocytes # (Auto) 0.5 x10^3/uL (0.0-1.1) Eosinophils # (Auto) 0.1 x10^3/uL (0.0-0.7) Basophils # (Auto) 0.0 x10^3/uL (0.0-0.2) Phosphorus Level 3.3 mg/dL (2.6-4.7) Magnesium Level 1.5 mg/dL (1.8-2.4) Triglycerides Level 168 mg/dL (0-150) Cholesterol Level 75 mg/dL (0-200) LDL Cholesterol, Calculated 32 mg/dL (0-100) VLDL Cholesterol, Calculated 34 mg/dL (0-40) Non-HDL Cholesterol Calculated 66 mg/dL (0-129) HDL Cholesterol 9 mg/dL (40-60) Cholesterol/HDL Ratio 8.3 Test 06/07/17 08:30 06/08/17 00:07 06/08/17 05:15 O2 Saturation 98 % (92-99) Arterial Blood pH 7.39 (7.35-7.45) Arterial Blood pCO2 at Patient Temp 37 mmHg (35-46) Arterial Blood pO2 at Patient Temp 128 mmHg (65-108) Arterial Blood HCO3 22 mmol/L (21-28) Arterial Blood Base Excess -3 mmol/L (-3-3) FiO2 40 Glucose (Fingerstick) 239 mg/dL (70-99) Sodium Level 139 mmol/L (136-145) Potassium Level 4.1 mmol/L (3.5-5.1) Chloride Level 108 mmol/L (98-107) Carbon Dioxide Level 26 mmol/L (21-32) Anion Gap 5 (6-14) Blood Urea Nitrogen 32 mg/dL (8-26) Creatinine 1.0 mg/dL (0.7-1.3) Estimated GFR (Cockcroft-Gault) 74.8 Glucose Level 198 mg/dL (70-99) Calcium Level 8.1 mg/dL (8.5-10.1) Phosphorus Level 1.9 mg/dL (2.6-4.7) Magnesium Level 2.0 mg/dL (1.8-2.4) Laboratory Tests Test 06/08/17 00:07 06/08/17 05:15 Glucose (Fingerstick) 239 mg/dL (70-99) Sodium Level 139 mmol/L (136-145) Potassium Level 4.1 mmol/L (3.5-5.1) Chloride Level 108 mmol/L (98-107) Carbon Dioxide Level 26 mmol/L (21-32) Anion Gap 5 (6-14) Blood Urea Nitrogen 32 mg/dL (8-26) Creatinine 1.0 mg/dL (0.7-1.3) Estimated GFR (Cockcroft-Gault) 74.8 Glucose Level 198 mg/dL (70-99) Calcium Level 8.1 mg/dL (8.5-10.1) Phosphorus Level 1.9 mg/dL (2.6-4.7) Magnesium Level 2.0 mg/dL (1.8-2.4) Medications Active Scripts Medications Dose Route/Sig Max Daily Dose Days Date Category [prednisone taper] 06/07/17 Reported Metoprolol Succinate ( Xl ) (Metoprolol Succinate) 100 Mg Tab.er.24h 1 Tab PO DAILY 06/07/17 Reported Lisinopril 10 Mg Tablet 1 Tab PO DAILY 06/07/17 Reported Hydrochlorothiazide Tablet (Hydrochlorothiazide) 50 Mg Tablet 25 Tab PO DAILY 06/07/17 Reported Impression . IMPRESSION: 1. Acute respiratory failure, expected status post exploratory laparotomy. 2. Emergent exploratory laparotomy for perforated viscus. 3. History of alcoholism. 4. Hypertension. 5. Hyperlipidemia. 6. Severe protein malnutrition, present upon admission. 7. Hypokalemia. 8. Acute kidney injury. PREOPERATIVE DIAGNOSIS: Perforated viscus. POSTOPERATIVE DIAGNOSIS: Perforated viscus secondary to perforated sigmoid diverticulitis with fecal spillage. PROCEDURES: 1. Exploratory laparotomy. 2. Sigmoid resection with end colostomy, Eufemia's pouch. Plan . POST OP MANAGEMENT ANITBX PER ID IS NO RESP DISTRESS OR COMPLAINTS CONNIE AVILA MD Jun 08, 2017 10:11
[2017-06-08] MEDS: ENOXAPARIN 40 MG/0.4 ML SYRINGE. SQ SCH (11:17)
[2017-06-08] MEDS: methylPREDNISolone SOD SUCC PF 125 MG/2 ML VIAL. IV SCH (11:18)
[2017-06-08] MEDS: FAMOTIDINE 20 MG/2 ML VIAL IVP SCH ×2 (11:18→21:00)
--- NOTE | 2017-06-08 12:55 | PDOC ---
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 tsh normal change levaquin to ceftriaxone, plus flagyl , fu with ID, fu abd fluid cx hold po meds banana bag daily, npo,add TPN for now. dc ivf replete Mag, K, gerard labs tmr gi ppx, dvt ppx ATIVAN prn hold ibuprofen fu with sx, may try clear liquid if bowel function regain History of Present Illness History of Present Illness ROS : no fever, chills, sob or chest pain extubated 06/07, seen in ICU feels calm stable, has 1 Quirino and another 2 big abd drain npo ivf and TPN low Mag resolved, loW gerard AFIB IN ER, sinus now no flatus or BM since sx 06/06 Vitals Vitals Vital Signs Date Time Temp Pulse Resp B/P (MAP) Pulse Ox O2 Delivery O2 Flow Rate FiO2 06/08/17 09:00 68 10 154/85 (108) 96 Room Air 06/08/17 08:00 99.4 99.4 06/08/17 07:00 2.0 Physical Exam Physical Exam General: Alert, Oriented X3, No acute distress Heart: Regular rate, Normal S1, Normal S2, No murmurs Lungs: Clear Abdomen: Soft, Other (stoma viable, 1 QUIRINO, 2 big ABD drain, no BS) Extremities: No edema, Normal pulses Skin: No breakdown Labs LABS Laboratory Tests Test 06/08/17 00:07 06/08/17 05:15 Glucose (Fingerstick) 239 mg/dL (70-99) Sodium Level 139 mmol/L (136-145) Potassium Level 4.1 mmol/L (3.5-5.1) Chloride Level 108 mmol/L (98-107) Carbon Dioxide Level 26 mmol/L (21-32) Anion Gap 5 (6-14) Blood Urea Nitrogen 32 mg/dL (8-26) Creatinine 1.0 mg/dL (0.7-1.3) Estimated GFR (Cockcroft-Gault) 74.8 Glucose Level 198 mg/dL (70-99) Calcium Level 8.1 mg/dL (8.5-10.1) Phosphorus Level 1.9 mg/dL (2.6-4.7) Magnesium Level 2.0 mg/dL (1.8-2.4) Assessment and Plan Assessmemt and Plan Problems Medical Problems: (1) Abdominal pain Status: Acute (2) Elevated brain natriuretic peptide (BNP) level Status: Acute (3) Hypomagnesemia Status: Acute (4) Perforated abdominal viscus Status: Acute Problems: Comment Review of Relevant I have reviewed the following items ananda (where applicable) has been applied. Labs Laboratory Tests Test 06/06/17 14:42 06/06/17 15:35 06/07/17 03:00 06/07/17 03:55 Sodium Level 139 mmol/L (136-145) 139 mmol/L (136-145) Potassium Level 3.6 mmol/L (3.5-5.1) 3.9 mmol/L (3.5-5.1) Chloride Level 105 mmol/L (98-107) 106 mmol/L (98-107) Carbon Dioxide Level 26 mmol/L (21-32) 23 mmol/L (21-32) Anion Gap 8 (6-14) 10 (6-14) Blood Urea Nitrogen 24 mg/dL (8-26) 26 mg/dL (8-26) Creatinine 1.1 mg/dL (0.7-1.3) 1.1 mg/dL (0.7-1.3) Estimated GFR (Cockcroft-Gault) 67.0 67.0 Glucose Level 129 mg/dL (70-99) 146 mg/dL (70-99) Calcium Level 8.3 mg/dL (8.5-10.1) 7.9 mg/dL (8.5-10.1) O2 Saturation 99 % (92-99) Arterial Blood pH 7.32 (7.35-7.45) Arterial Blood pCO2 at Patient Temp 42 mmHg (35-46) Arterial Blood pO2 at Patient Temp 202 mmHg (65-108) Arterial Blood HCO3 21 mmol/L (21-28) Arterial Blood Base Excess -5 mmol/L (-3-3) FiO2 60 White Blood Count 9.7 x10^3/uL (4.0-11.0) Red Blood Count 3.45 x10^6/uL (4.30-5.70) Hemoglobin 10.1 g/dL (13.0-17.5) Hematocrit 30.0 % (39.0-53.0) Mean Corpuscular Volume 87 fL (79-100) Mean Corpuscular Hemoglobin 29 pg (25-35) Mean Corpuscular Hemoglobin Concent 34 g/dL (31-37) Red Cell Distribution Width 14.5 % (11.5-14.5) Platelet Count 216 x10^3/uL (140-400) Neutrophils (%) (Auto) 91 % (31-73) Lymphocytes (%) (Auto) 3 % (24-48) Monocytes (%) (Auto) 5 % (0-9) Eosinophils (%) (Auto) 1 % (0-3) Basophils (%) (Auto) 0 % (0-3) Neutrophils # (Auto) 8.8 x10^3uL (1.8-7.7) Lymphocytes # (Auto) 0.2 x10^3/uL (1.0-4.8) Monocytes # (Auto) 0.5 x10^3/uL (0.0-1.1) Eosinophils # (Auto) 0.1 x10^3/uL (0.0-0.7) Basophils # (Auto) 0.0 x10^3/uL (0.0-0.2) Phosphorus Level 3.3 mg/dL (2.6-4.7) Magnesium Level 1.5 mg/dL (1.8-2.4) Triglycerides Level 168 mg/dL (0-150) Cholesterol Level 75 mg/dL (0-200) LDL Cholesterol, Calculated 32 mg/dL (0-100) VLDL Cholesterol, Calculated 34 mg/dL (0-40) Non-HDL Cholesterol Calculated 66 mg/dL (0-129) HDL Cholesterol 9 mg/dL (40-60) Cholesterol/HDL Ratio 8.3 Test 06/07/17 08:30 06/08/17 00:07 06/08/17 05:15 O2 Saturation 98 % (92-99) Arterial Blood pH 7.39 (7.35-7.45) Arterial Blood pCO2 at Patient Temp 37 mmHg (35-46) Arterial Blood pO2 at Patient Temp 128 mmHg (65-108) Arterial Blood HCO3 22 mmol/L (21-28) Arterial Blood Base Excess -3 mmol/L (-3-3) FiO2 40 Glucose (Fingerstick) 239 mg/dL (70-99) Sodium Level 139 mmol/L (136-145) Potassium Level 4.1 mmol/L (3.5-5.1) Chloride Level 108 mmol/L (98-107) Carbon Dioxide Level 26 mmol/L (21-32) Anion Gap 5 (6-14) Blood Urea Nitrogen 32 mg/dL (8-26) Creatinine 1.0 mg/dL (0.7-1.3) Estimated GFR (Cockcroft-Gault) 74.8 Glucose Level 198 mg/dL (70-99) Calcium Level 8.1 mg/dL (8.5-10.1) Phosphorus Level 1.9 mg/dL (2.6-4.7) Magnesium Level 2.0 mg/dL (1.8-2.4) Laboratory Tests Test 06/08/17 00:07 06/08/17 05:15 Glucose (Fingerstick) 239 mg/dL (70-99) Sodium Level 139 mmol/L (136-145) Potassium Level 4.1 mmol/L (3.5-5.1) Chloride Level 108 mmol/L (98-107) Carbon Dioxide Level 26 mmol/L (21-32) Anion Gap 5 (6-14) Blood Urea Nitrogen 32 mg/dL (8-26) Creatinine 1.0 mg/dL (0.7-1.3) Estimated GFR (Cockcroft-Gault) 74.8 Glucose Level 198 mg/dL (70-99) Calcium Level 8.1 mg/dL (8.5-10.1) Phosphorus Level 1.9 mg/dL (2.6-4.7) Magnesium Level 2.0 mg/dL (1.8-2.4) Microbiology 06/06/17 Anaerobic/Aerobic Culture, Resulted Pending 06/06/17 Anaerobic Culture Result 1 (AISSATOU), Resulted Pending 06/06/17 Aerobic Culture - Final, Resulted 06/06/17 Aerobic Culture Result 1 (AISSATOU) - Final, Resulted 06/06/17 Aerobic Culture Result 2 (AISSATOU) - Final, Resulted 06/06/17 Antimicrobic Susceptibility - Final, Resulted Medications Current Medications Sodium Chloride 1,000 ml @ 1,000 mls/hr 1X ONCE IV Last administered on 08:22; Start 06/06/17 at 08:30; Stop 06/06/17 at 09:29; Status DC Ondansetron HCl (Zofran) 8 mg 1X ONCE IV Last administered on 06/06/17 08:23 ; Start 06/06/17 at 08:30; Stop 06/06/17 at 08:31; Status DC Morphine Sulfate 5 mg 1X ONCE IV Last administered on 06/06/17 08:29; Start 06/06/17 at 08:30; Stop 06/06/17 at 08:31; Status DC Potassium Chloride (Klor-Con) 40 meq 1X ONCE PO Last administered on 09:31; Start 06/06/17 at 08:30; Stop 06/06/17 at 08:31; Status DC Potassium Chloride/Sodium Chloride 1,000 ml @ 250 mls/hr 1X ONCE IV Last administered on 06/06/17 09:36; Start 06/06/17 at 08:30; Stop 06/06/17 at 12:29 ; Status DC Iohexol (Omnipaque 300 Mg/ml) 60 ml 1X ONCE IV Last administered on 06/06/17 08:51; Start 06/06/17 at 08:45; Stop 06/06/17 at 08:46; Status DC Magnesium Oxide (Magnesium Oxide) 800 mg 1X STAT PO Last administered on 09:31; Start 06/06/17 at 08:37; Stop 06/06/17 at 08:40; Status DC Info (Do NOT chart on this entry -- for MONITORING) 1 each PRN DAILY PRN MC SEE COMMENTS; Start 06/06/17 at 08:45; Stop 06/08/17 at 08:44; Status DC Metronidazole 100 ml @ 100 mls/hr 1X ONCE IV Last administered on 06/06/17 10:00; Start 06/06/17 at 09:30; Stop 06/06/17 at 10:29; Status DC Levofloxacin/ Dextrose (Levaquin Per Pharmacy) 1 each PRN DAILY PRN MC SEE COMMENTS; Start 06/06/17 at 09:30; Stop 06/08/17 at 09:20; Status DC Levofloxacin/ Dextrose 100 ml @ 100 mls/hr 1X ONCE IV ; Start 06/06/17 at 09: 30; Stop 06/06/17 at 10:29; Status DC Levofloxacin/ Dextrose 100 ml @ 100 mls/hr Q24H IV Last administered on t 11:36; Start 06/07/17 at 10:00; Stop 06/08/17 at 08:03; Status DC Rocuronium [place] (Zemuron) 100 mg STK-MED ONCE .ROUTE ; Start 06/06/17 at 10: 28; Stop 06/06/17 at 10:29; Status DC Fentanyl Citrate (Fentanyl 5ml Vial) 250 mcg STK-MED ONCE .ROUTE ; Start at 10:28; Stop 06/06/17 at 10:29; Status DC Propofol 20 ml @ As Directed STK-MED ONCE IV ; Start 06/06/17 at 10:32; Stop at 10:33; Status DC Lidocaine HCl (Lidocaine Pf 2% Vial) 5 ml STK-MED ONCE .ROUTE ; Start 06/06/17 at 10:32; Stop 06/06/17 at 10:33; Status DC Ondansetron HCl (Zofran) 4 mg STK-MED ONCE .ROUTE ; Start 06/06/17 at 10:33; Stop 06/06/17 at 10:34; Status DC Dexamethasone Sodium Phosphate (Decadron) 20 mg STK-MED ONCE .ROUTE ; Start 06/06/17 at 10:33; Stop 06/06/17 at 10:34; Status DC Multivitamins 10 ml/Folic Acid 1 mg/Thiamine HCl 100 mg/Ringer's Solution 1, 011.2 ml @ 1,000 mls/ hr 1X ONCE IV ; Start 06/06/17 at 11:30; Stop 06/06/17 at 12:30; Status DC Fentanyl Citrate (Fentanyl 2ml Vial) 25 mcg PRN Q5MIN PRN IV MILD PAIN; Start 06/06/17 at 11:45; Stop 06/07/17 at 11:44; Status DC Fentanyl Citrate (Fentanyl 2ml Vial) 50 mcg PRN Q5MIN PRN IV MODERATE PAIN Last administered on 06/06/17t 17:24; Start 06/06/17 at 11:45; Stop 06/07/17 at 11:44; Status DC Morphine Sulfate 1 mg PRN Q10MIN PRN IV SEVERE PAIN Last administered on t 15:38; Start 06/06/17 at 11:45; Stop 06/07/17 at 11:44; Status DC Ringer's Solution 1,000 ml @ 30 mls/hr Q24H IV ; Start 06/06/17 at 11:39; Stop 06/06/17 at 23:38; Status DC Lidocaine HCl (Xylocaine-Mpf 1% Vial) 2 ml 1X PRN PRN ID IV START; Start at 11:45; Stop 06/07/17 at 11:44; Status DC Hydromorphone HCl (Dilaudid) 0.5 mg PRN Q10MIN PRN IV SEV PAIN, Second choice; Start 06/06/17 at 11:45; Stop 06/07/17 at 11:44; Status DC Prochlorperazine Edisylate (Compazine) 5 mg PACU PRN PRN IV NAUSEA, MRX1; Start 06/06/17 at 11:45; Stop 06/07/17 at 11:44; Status DC Phenylephrine HCl (Pedro-Synephrine Inj) 10 mg STK-MED ONCE .ROUTE ; Start at 11:58; Stop 06/06/17 at 11:59; Status DC Sodium Chloride (Sodium Chloride) 50 ml STK-MED ONCE IJ ; Start 06/06/17 at 11: 58; Stop 06/06/17 at 11:59; Status DC Sevoflurane (Ultane) 90 ml STK-MED ONCE IH ; Start 06/06/17 at 13:52; Stop 06/06 at 13:53; Status DC Neostigmine Methylsulfate 5 mg STK-MED ONCE .ROUTE ; Start 06/06/17 at 13:52; Stop 06/06/17 at 13:53; Status DC Glycopyrrolate (Robinul) 1 mg STK-MED ONCE .ROUTE ; Start 06/06/17 at 13:52; Stop 06/06/17 at 13:53; Status DC Fentanyl Citrate (Fentanyl 2ml Vial) 100 mcg STK-MED ONCE .ROUTE ; Start at 14:18; Stop 06/06/17 at 14:19; Status DC Diphenhydramine HCl (Benadryl) 25 mg PRN Q6HRS PRN IV ITCHING; Start 06/06/17 at 14:30 Enoxaparin Sodium (Lovenox 40mg Syringe) 40 mg Q24H SQ Last administered on 15:00; Start 06/06/17 at 15:00; Stop 06/06/17 at 15:41; Status DC Sodium Chloride (Normal Saline Flush) 3 ml QSHIFT PRN IV AFTER MEDS AND BLOOD DRAWS; Start 06/06/17 at 14:30 Potassium Chloride/Sodium Chloride 1,000 ml @ 100 mls/hr Q10H IV Last administered on 06/07/17 20:00; Start 06/06/17 at 15:00; Stop 06/08/17 at 09: 20; Status DC Hydromorphone HCl 30 ml @ 0 mls/hr CONT PRN PRN IV PROTOCOL; Start 06/06/17 at 14:30; Stop 06/06/17 at 17:30; Status DC Ondansetron HCl (Zofran) 4 mg PRN Q6HRS PRN IV NAUESA, 1ST CHOICE; Start at 14:30 Epinephrine (S2 Racepinephrine) 0.5 ml STK-MED ONCE .ROUTE ; Start 06/06/17 at 14:35; Stop 06/06/17 at 14:36; Status DC Propofol 50 ml @ As Directed STK-MED ONCE IV ; Start 06/06/17 at 14:38; Stop at 14:39; Status DC Succinylcholine Chloride (Anectine) 200 mg STK-MED ONCE .ROUTE ; Start 06/06/17 at 14:40; Stop 06/06/17 at 14:41; Status DC Epinephrine (S2 Racepinephrine) 0.5 ml 1X ONCE NEB Last administered on 14:43; Start 06/06/17 at 14:36; Stop 06/06/17 at 14:43; Status DC Midazolam HCl (Versed) 2 mg STK-MED ONCE .ROUTE ; Start 06/06/17 at 14:48; Stop 06/06/17 at 14:49; Status DC Propofol 100 ml @ 0 mls/hr CONT PRN IV SEE I/O RECORD; Start 06/06/17 at 15:15 ; Stop 06/08/17 at 09:20; Status DC Propofol 50 ml @ As Directed STK-MED ONCE IV ; Start 06/06/17 at 15:03; Stop at 15:04; Status DC Dexamethasone Sodium Phosphate (Decadron) 12 mg 1X ONCE IV Last administered on 06/06/17 15:09; Start 06/06/17 at 15:00; Stop 06/06/17 at 15:06; Status DC Dexamethasone Sodium Phosphate (Decadron) 4 mg STK-MED ONCE .ROUTE ; Start 06/06 at 15:05; Stop 06/06/17 at 15:06; Status DC Propofol 50 ml @ 0 mls/hr 1X ONCE IV Last administered on 06/06/17 15:02; Start 06/06/17 at 15:15; Stop 06/06/17 at 15:16; Status DC Succinylcholine Chloride (Anectine) 200 mg 1X ONCE IV ; Start 06/06/17 at 15:15 ; Stop 06/06/17 at 15:16; Status DC Midazolam HCl (Versed) 2 mg 1X ONCE IV ; Start 06/06/17 at 15:15; Stop at 15:16; Status DC Cellulose 1 each STK-MED ONCE .ROUTE Last administered on 06/06/17 13:35; Start 06/06/17 at 14:19; Stop 06/06/17 at 15:20; Status DC Enoxaparin Sodium (Lovenox 40mg Syringe) 40 mg Q24H SQ Last administered on 11:17; Start 06/07/17 at 09:00 Metronidazole 100 ml @ 100 mls/hr Q12HR IV Last administered on 06/08/17 11: 17; Start 06/06/17 at 21:00 Multivitamins 10 ml/Folic Acid 1 mg/Thiamine HCl 100 mg/Dextrose/ Lactated Ringer's 1,011.2 ml @ 100 mls/ hr DAILY IV Last administered on 06/07/17 09: 21; Start 06/07/17 at 09:00; Stop 06/08/17 at 08:06; Status DC Lorazepam (Ativan) 2 mg PRN Q4HRS PRN IV ANXIETY / AGITATION; Start 06/06/17 at 15:45 Famotidine (Pepcid) 20 mg BID IVP Last administered on 06/08/17 11:18; Start 06/06/17 at 21:00 Morphine Sulfate 2 mg PRN Q2HR PRN IV PAIN; Start 06/06/17 at 15:45 Morphine Sulfate 4 mg PRN Q2HR PRN IV PAIN; Start 06/06/17 at 15:45 Ondansetron HCl (Zofran) 4 mg PRN Q6HRS PRN IV NAUSEA/VOMITING; Start 06/06/17 at 15:45; Stop 06/06/17 at 15:45; Status DC Fentanyl Citrate 30 ml @ 0 mls/hr CONT PRN IV PROTOCOL Last administered on 02:54; Start 06/06/17 at 17:30; Stop 06/07/17 at 10:39; Status DC Midazolam HCl 100 ml @ 0 mls/hr CONT PRN IV SEE I/O RECORD; Start 06/06/17 at 23:00; Stop 06/08/17 at 09:20; Status DC Sodium Chloride 1,000 ml @ 1,000 mls/hr 1X ONCE IV Last administered on 23:34; Start 06/06/17 at 23:00; Stop 06/06/17 at 23:59; Status DC Magnesium Sulfate/ Dextrose 50 ml @ 25 mls/hr 1X ONCE IV Last administered on 06/07/17 09:28; Start 06/07/17 at 08:15; Stop 06/07/17 at 10:14; Status DC Info 1 each PRN DAILY PRN MC SEE COMMENTS Last administered on 06/08/17 11:31 ; Start 06/07/17 at 09:30 Methylprednisolone Sodium Succinate (SOLU-Medrol 125MG VIAL) 50 mg DAILY IV Last administered on 06/08/17 11:18; Start 06/07/17 at 11:00 Hydromorphone HCl 30 ml @ 0 mls/hr CONT PRN PRN IV PROTOCOL Last administered on 06/07/17 11:16; Start 06/07/17 at 10:45 Sodium Chloride 90 meq/Potassium Chloride 50 meq/ Potassium Phosphate 13.6 mmol/ Magnesium Sulfate 10 meq/ Calcium Gluconate 10 meq/ Multivitamins 10 ml/Chromium / Copper/Manganese/ Seleni/Zn 1 ml/ Total Parenteral Nutrition/Amino Acids/ Dextrose/ Fat Emulsion Intravenous 1,512 ml @ 63 mls/hr TPN CONT IV Last administered on 06/07/17 22:04; Start 06/07/17 at 22:00; Stop 06/08/17 at 21 :59 Influenza Virus Vaccine Quadrival (Fluarix Quad [id number] Syringe) 0.5 ml ONCE ONCE VAX IM ; Start 06/07/17 at 16:15; Stop 06/07/17 at 16:35; Status DC Pneumococcal Polyvalent Vaccine (Do NOT chart on this placeholder) 1 each PRN 1X PRN MC SEE COMMENTS; Start 06/07/17 at 16:45; Status UNV Pneumococcal Polyvalent Vaccine (Pneumovax 23) 0.5 ml ONCE ONCE VAX IM ; Start 06/07/17 at 17:00; Stop 06/07/17 at 17:01; Status DC Ceftriaxone Sodium 1 gm/ Sodium Chloride 50 ml @ 100 mls/hr Q24H IV Last administered on 06/08/17 11:16; Start 06/08/17 at 09:00 Sodium Phosphate 20 mmol/Dextrose 256.6667 ml @ 64.167 m... 1X ONCE IV Last administered on 06/08/17 08:58; Start 06/08/17 at 09:00; Stop 06/08/17 at 12 :59 Multi-Ingred Cream/Lotion/Oil/ Oint (Artificial Tears Eye Oint) 1 juvenal PRN Q1HR PRN OU DRY EYE; Start 06/08/17 at 09:15 Sodium Chloride 90 meq/Potassium Chloride 40 meq/ Potassium Phosphate 17 mmol/ Magnesium Sulfate 10 meq/Calcium Gluconate 10 meq/ Multivitamins 10 ml/Chromium / Copper/Manganese/ Seleni/Zn 1 ml/ Total Parenteral Nutrition/Amino Acids/ Dextrose/ Fat Emulsion Intravenous 1,512 ml @ 63 mls/hr TPN CONT IV ; Start 06/08/17 at 22:00; Stop 06/09/17 at 21:59 Active Scripts Active Reported [prednisone taper] Metoprolol Succinate ( Xl ) (Metoprolol Succinate) 100 Mg Tab.er.24h 1 Tab PO DAILY Lisinopril 10 Mg Tablet 1 Tab PO DAILY Hydrochlorothiazide Tablet (Hydrochlorothiazide) 50 Mg Tablet 25 Tab PO DAILY Vitals/I & O Vital Sign - Last 24 Hours 06/07/17 06/07/17 06/07/17 06/07/17 15:00 16:00 16:00 17:00 Temp 100.6 100.6 Pulse 78 82 86 Resp 16 18 21 B/P (MAP) 159/86 (110) 166/80 (108) 158/78 (104) Pulse Ox 97 97 97 O2 Delivery Nasal Cannula Nasal Cannula Nasal Cannula Nasal Cannula O2 Flow Rate 2.0 2.0 2.0 2.0 06/07/17 06/07/17 06/07/17 06/07/17 18:00 19:00 20:00 20:00 Temp 99.2 99.2 Pulse 90 81 81 Resp 18 34 34 B/P (MAP) 143/76 (98) 122/78 (93) 122/78 (93) Pulse Ox 97 95 95 O2 Delivery Nasal Cannula Nasal Cannula Nasal Cannula Nasal Cannula O2 Flow Rate 2.0 2.0 2.0 2.0 06/07/17 06/07/17 06/07/17 06/08/17 21:00 22:00 23:00 00:00 Pulse 76 74 68 Resp 17 23 25 B/P (MAP) 137/82 (100) 140/75 (96) 116/80 (92) Pulse Ox 93 90 94 O2 Delivery Nasal Cannula Nasal Cannula Nasal Cannula Nasal Cannula O2 Flow Rate 2.0 2.0 2.0 2.0 06/08/17 06/08/17 06/08/17 06/08/17 00:00 01:00 02:00 03:00 Temp 97.9 97.9 Pulse 64 66 60 59 Resp 15 10 17 11 B/P (MAP) 141/72 (95) 130/68 (88) 132/68 (89) 137/76 (96) Pulse Ox 96 97 97 97 O2 Delivery Nasal Cannula Nasal Cannula Nasal Cannula Nasal Cannula O2 Flow Rate 2.0 2.0 2.0 2.0 06/08/17 06/08/17 06/08/17 06/08/17 04:00 04:00 05:00 06:00 Temp 97.9 97.9 Pulse 59 59 59 Resp 10 8 18 B/P (MAP) 145/70 (95) 135/73 (93) 143/70 (94) Pulse Ox 97 96 96 O2 Delivery Nasal Cannula Nasal Cannula Nasal Cannula Nasal Cannula O2 Flow Rate 2.0 2.0 2.0 2.0 06/08/17 06/08/17 06/08/17 07:00 08:00 09:00 Temp 99.4 99.4 Pulse 64 70 68 Resp 15 26 10 B/P (MAP) 150/79 (102) 171/84 (113) 154/85 (108) Pulse Ox 91 94 96 O2 Delivery Nasal Cannula Room Air Room Air O2 Flow Rate 2.0 Intake and Output 06/08/17 06/08/17 06/09/17 15:00 23:00 07:00 Output Total 145 ml Balance -145 ml KRISTIN PEÑA MD Jun 08, 2017 12:55
--- NOTE | 2017-06-08 12:55 | PDOC ---
SURGICAL PROGRESS NOTE Subjective up to chair at bedside main concern is getting a CT of his back for his "sciatica" states he is using the [employer] more for his back than his abdomen Vital Signs Vital Signs Date Time Temp Pulse Resp B/P (MAP) Pulse Ox O2 Delivery O2 Flow Rate FiO2 06/08/17 09:00 68 10 154/85 (108) 96 Room Air 06/08/17 08:00 99.4 99.4 06/08/17 07:00 2.0 I&O Intake and Output 06/09/17 07:00 Output Total 145 ml Balance -145 ml Output Urine Total 110 ml Drainage Total 35 ml PATIENT HAS A WILKINSON: Yes General: Alert, Oriented X3, Cooperative, No acute distress Abdomen: Soft, Other (stoma viable, serosanguineous drain output) Labs Laboratory Tests Test 06/06/17 14:42 06/06/17 15:35 06/07/17 03:00 06/07/17 03:55 Sodium Level 139 mmol/L (136-145) 139 mmol/L (136-145) Potassium Level 3.6 mmol/L (3.5-5.1) 3.9 mmol/L (3.5-5.1) Chloride Level 105 mmol/L (98-107) 106 mmol/L (98-107) Carbon Dioxide Level 26 mmol/L (21-32) 23 mmol/L (21-32) Anion Gap 8 (6-14) 10 (6-14) Blood Urea Nitrogen 24 mg/dL (8-26) 26 mg/dL (8-26) Creatinine 1.1 mg/dL (0.7-1.3) 1.1 mg/dL (0.7-1.3) Estimated GFR (Cockcroft-Gault) 67.0 67.0 Glucose Level 129 mg/dL (70-99) 146 mg/dL (70-99) Calcium Level 8.3 mg/dL (8.5-10.1) 7.9 mg/dL (8.5-10.1) O2 Saturation 99 % (92-99) Arterial Blood pH 7.32 (7.35-7.45) Arterial Blood pCO2 at Patient Temp 42 mmHg (35-46) Arterial Blood pO2 at Patient Temp 202 mmHg (65-108) Arterial Blood HCO3 21 mmol/L (21-28) Arterial Blood Base Excess -5 mmol/L (-3-3) FiO2 60 White Blood Count 9.7 x10^3/uL (4.0-11.0) Red Blood Count 3.45 x10^6/uL (4.30-5.70) Hemoglobin 10.1 g/dL (13.0-17.5) Hematocrit 30.0 % (39.0-53.0) Mean Corpuscular Volume 87 fL (79-100) Mean Corpuscular Hemoglobin 29 pg (25-35) Mean Corpuscular Hemoglobin Concent 34 g/dL (31-37) Red Cell Distribution Width 14.5 % (11.5-14.5) Platelet Count 216 x10^3/uL (140-400) Neutrophils (%) (Auto) 91 % (31-73) Lymphocytes (%) (Auto) 3 % (24-48) Monocytes (%) (Auto) 5 % (0-9) Eosinophils (%) (Auto) 1 % (0-3) Basophils (%) (Auto) 0 % (0-3) Neutrophils # (Auto) 8.8 x10^3uL (1.8-7.7) Lymphocytes # (Auto) 0.2 x10^3/uL (1.0-4.8) Monocytes # (Auto) 0.5 x10^3/uL (0.0-1.1) Eosinophils # (Auto) 0.1 x10^3/uL (0.0-0.7) Basophils # (Auto) 0.0 x10^3/uL (0.0-0.2) Phosphorus Level 3.3 mg/dL (2.6-4.7) Magnesium Level 1.5 mg/dL (1.8-2.4) Triglycerides Level 168 mg/dL (0-150) Cholesterol Level 75 mg/dL (0-200) LDL Cholesterol, Calculated 32 mg/dL (0-100) VLDL Cholesterol, Calculated 34 mg/dL (0-40) Non-HDL Cholesterol Calculated 66 mg/dL (0-129) HDL Cholesterol 9 mg/dL (40-60) Cholesterol/HDL Ratio 8.3 Test 06/07/17 08:30 06/08/17 00:07 06/08/17 05:15 O2 Saturation 98 % (92-99) Arterial Blood pH 7.39 (7.35-7.45) Arterial Blood pCO2 at Patient Temp 37 mmHg (35-46) Arterial Blood pO2 at Patient Temp 128 mmHg (65-108) Arterial Blood HCO3 22 mmol/L (21-28) Arterial Blood Base Excess -3 mmol/L (-3-3) FiO2 40 Glucose (Fingerstick) 239 mg/dL (70-99) Sodium Level 139 mmol/L (136-145) Potassium Level 4.1 mmol/L (3.5-5.1) Chloride Level 108 mmol/L (98-107) Carbon Dioxide Level 26 mmol/L (21-32) Anion Gap 5 (6-14) Blood Urea Nitrogen 32 mg/dL (8-26) Creatinine 1.0 mg/dL (0.7-1.3) Estimated GFR (Cockcroft-Gault) 74.8 Glucose Level 198 mg/dL (70-99) Calcium Level 8.1 mg/dL (8.5-10.1) Phosphorus Level 1.9 mg/dL (2.6-4.7) Magnesium Level 2.0 mg/dL (1.8-2.4) Laboratory Tests Test 06/08/17 00:07 06/08/17 05:15 Glucose (Fingerstick) 239 mg/dL (70-99) Sodium Level 139 mmol/L (136-145) Potassium Level 4.1 mmol/L (3.5-5.1) Chloride Level 108 mmol/L (98-107) Carbon Dioxide Level 26 mmol/L (21-32) Anion Gap 5 (6-14) Blood Urea Nitrogen 32 mg/dL (8-26) Creatinine 1.0 mg/dL (0.7-1.3) Estimated GFR (Cockcroft-Gault) 74.8 Glucose Level 198 mg/dL (70-99) Calcium Level 8.1 mg/dL (8.5-10.1) Phosphorus Level 1.9 mg/dL (2.6-4.7) Magnesium Level 2.0 mg/dL (1.8-2.4) Problem List Problems Medical Problems: (1) Abdominal pain Status: Acute (2) Elevated brain natriuretic peptide (BNP) level Status: Acute (3) Hypomagnesemia Status: Acute (4) Perforated abdominal viscus Status: Acute Assessment/Plan POD 2 sigmoid resection for perforated diverticulitis d/c wilkinson to floor ambulate Problems: MARY MARTINEZ MD Jun 08, 2017 12:55
--- NOTE | 2017-06-08 13:42 | PATHOLOGY ---
PATHOLOGY REPORT * * * * * * * * FINAL DIAGNOSIS: Segment of colon and attached mesocolon, sigmoid colon segmental resection: - Diverticulosis. - Acute and chronic diverticulitis, with focal perforation and with extensive serosal acute inflammatory exudate with focal presence of fecal material. COMMENT: There is no evidence of malignancy. (JPM:mml; 06/08/2017) REPORT ELECTRONICALLY SIGNED BY: Kev Montoya M.D. DATE/TIME: 06/08/2017 13:41 * * * * * * * * GROSS PATHOLOGY: Received fresh for intraoperative consultation and is labeled, Mayela Gopi and sigmoid colon, is a segment of colon with attached mesocolon. The segment is stapled closed at both ends. There is a suture attached to one of the stapled ends. This denotes the proximal margin. The segment measures approximately 16 cm in length and is focally up to 9.0 cm in width. There is a fairly extensive amount of yellow-byrne exudate present on the serosa of the mesocolon and appendices epiploica as well as the antimesocolic serosa of the mid and distal portion of the segment. There is yellow-byrne pasty stool present within the lumen of the colon. The colonic mucosa is pink-byrne and erythematous. There are multiple diverticula throughout the segment, some of which are probed deeply into the pericolic fat. One of the diverticuli near the distal end appears perforated. There are no tumor masses identified throughout the segment. The specimen is placed in formation prior to submission of sections. (JPM:mml; 06/06/2017) The segment is further serially transversely sectioned. The diverticula extend through the muscularis propria and into the mesocolon. The depth ranges from 0.3 cm to 1.3 cm. There is an abscess cavity identified at the proximal end that measures 0.7 cm. There are no significantly enlarged lymph nodes identified. Burrer Machine sections are submitted as follows: A1 proximal margin A2 distal margin A3 above described perforated diverticulum A4-A5 additional diverticula A6 abscess within mesocolon. (GREGORIA; 06/07/2017) INTRAOPERATIVE CONSULTATION (Kev Montoya MD) Sigmoid colon: - Diverticulosis and diverticulitis with focal perforation and serosal exudate. The results are displayed to Dr. Viera in the operating room. (JPM:mml; 06/06/2017) Testing performed [place] [address] INITIAL CPT CODE(S): A; 24989, 13147 Professional services [place] [address] Technical services performed by [facility] at [address] [place] [address], [address] [address]. SPECIMEN(S) RECEIVED: A.Sigmoid colon CLINICAL HISTORY: Perforated viscous PATIENT: GOPI RODRIGUEZ /AGE: 8 1950 (Age: 67) PATIENT #: [id number] ALT CASE #: SPECIMEN COLLECTION DATE: 06/06/2017 SPECIMEN RECEIVED DATE: 06/06/2017 [facility] - [address] [place] [address] - PHONE: [phone] * * * END OF REPORT * * *
[2017-06-08] MEDS: DICLOFENAC SODIUM 1% TOPICAL GEL 100GM TUBE. TP SCH (21:00)
[2017-06-08] MEDS ORDERED: AMINO ACIDS IV SCH ×10 (22:00)
[2017-06-08] MEDS ORDERED: TOTAL PARENTERAL NUTRITION IV SCH ×10 (22:00)
[2017-06-08] MEDS ORDERED: DEXTROSE 70% IV SCH ×10 (22:00)
[2017-06-08] MEDS ORDERED: [UNRECOGNIZED DRUG - OTHER] IV SCH ×10 (22:00)
[2017-06-08 23:17] LABS: MAGNESIUM 1.7 mg/dL (1.8-2.4); POTASSIUM 4.2 mmol/L (3.5-5.1)
[2017-06-09 03:00] VITALS: BP 177/85
[2017-06-09 06:16] LABS: BASO % 0 % (0-3); EOS % 1 % (0-3); HEMATOCRIT 26.7 % (39.0-53.0); LYMPH # 1.3 x10^3/uL (1.0-4.8); LYMPH % 12 % (24-48); MEAN CORPUSCULAR HEMOGLOBIN 29 pg (25-35); MEAN CORPUSCULAR HGB CONC 34 g/dL (31-37); MEAN CORPUSCULAR VOLUME 86 fL (79-100); MONO % 7 % (0-9); NEUT % 80 % (31-73); PLATELET COUNT 221 x10^3/uL (140-400); RED BLOOD COUNT 3.09 x10^6/uL (4.30-5.70); RED CELL DISTRIBUTION WIDTH 14.6 % (11.5-14.5); WHITE BLOOD COUNT 10.5 x10^3/uL (4.0-11.0)
[2017-06-09 06:43] LABS: CALCIUM 7.9 mg/dL (8.5-10.1); CREATININE 0.9 mg/dL (0.7-1.3); GFR 84.4; MAGNESIUM 1.6 mg/dL (1.8-2.4); PHOSPHORUS 1.9 mg/dL (2.6-4.7); POTASSIUM 3.6 mmol/L (3.5-5.1)
[2017-06-09 07:00] VITALS: BP 150/69
[2017-06-09] MEDS ORDERED: MAGNESIUM SULFATE 2GM 50 ML IV ONE (08:00)
--- NOTE | 2017-06-09 09:00 | PDOC ---
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 Eating NO fevers, no white ct HAs 1 GONZALES drain and 2 big drains attached to CT container LONG TIME DISCUSSING WITH HIM, THE SCIATICA IS NOT BOTHERING HIM HIS BACK MUSCLES ARE ACHY, DILAUDID HELPS NOT PRESSING 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 UNIT OPERATOR MUCH NOW - WILLING TO TRY PO AND TAPER VARNISHING UNIT OPERATOR pHOSP LOW, MAG LOW, K LOW SIE (WAS CRITICALLY LOW FEW DAYS AGO) PLAN: MAG 2 GMS IV X 1 NOW START K PHOSP ORAl 500 bid cancel PHYSIATRY CONSULT ADD LIDODERM PATCH TO BACK ADD PO PERCOCET 10 TAPER VARNISHING UNIT OPERATOR Vitals Vitals Vital Signs Date Time Temp Pulse Resp B/P (MAP) Pulse Ox O2 Delivery O2 Flow Rate FiO2 06/09/17 07:00 98.5 62 18 150/69 (96) 93 Room Air 98.5 06/09/17 03:00 2.0 Physical Exam Physical Exam General: Alert, Oriented X3, Cooperative, No acute distress Heart: Regular rate, Normal S1, Normal S2, No murmurs Lungs: Clear Abdomen: Soft, Other (stoma viable, serosanguineous drain output) Extremities: No edema, Normal pulses Skin: No breakdown Labs LABS Laboratory Tests Test 06/08/17 14:27 06/08/17 23:00 06/09/17 05:29 06/09/17 06:00 Glucose (Fingerstick) 169 mg/dL (70-99) 152 mg/dL (70-99) Potassium Level 4.2 mmol/L (3.5-5.1) 3.6 mmol/L (3.5-5.1) Magnesium Level 1.7 mg/dL (1.8-2.4) 1.6 mg/dL (1.8-2.4) White Blood Count 10.5 x10^3/uL (4.0-11.0) Red Blood Count 3.09 x10^6/uL (4.30-5.70) Hemoglobin 9.0 g/dL (13.0-17.5) Hematocrit 26.7 % (39.0-53.0) Mean Corpuscular Volume 86 fL (79-100) Mean Corpuscular Hemoglobin 29 pg (25-35) Mean Corpuscular Hemoglobin Concent 34 g/dL (31-37) Red Cell Distribution Width 14.6 % (11.5-14.5) Platelet Count 221 x10^3/uL (140-400) Neutrophils (%) (Auto) 80 % (31-73) Lymphocytes (%) (Auto) 12 % (24-48) Monocytes (%) (Auto) 7 % (0-9) Eosinophils (%) (Auto) 1 % (0-3) Basophils (%) (Auto) 0 % (0-3) Neutrophils # (Auto) 8.3 x10^3uL (1.8-7.7) Lymphocytes # (Auto) 1.3 x10^3/uL (1.0-4.8) Monocytes # (Auto) 0.8 x10^3/uL (0.0-1.1) Eosinophils # (Auto) 0.1 x10^3/uL (0.0-0.7) Basophils # (Auto) 0.0 x10^3/uL (0.0-0.2) Sodium Level 141 mmol/L (136-145) Chloride Level 109 mmol/L (98-107) Carbon Dioxide Level 28 mmol/L (21-32) Anion Gap 4 (6-14) Blood Urea Nitrogen 30 mg/dL (8-26) Creatinine 0.9 mg/dL (0.7-1.3) Estimated GFR (Cockcroft-Gault) 84.4 Glucose Level 132 mg/dL (70-99) Calcium Level 7.9 mg/dL (8.5-10.1) Phosphorus Level 1.9 mg/dL (2.6-4.7) Triglycerides Level 96 mg/dL (0-150) Review of Systems Review of Systems back pain, muscle soreness Assessment and Plan Assessmemt and Plan Problems Medical Problems: (1) Abdominal pain Status: Acute (2) Elevated brain natriuretic peptide (BNP) level Status: Acute (3) Hypomagnesemia Status: Acute (4) Perforated abdominal viscus Status: Acute Problems: Comment Review of Relevant I have reviewed the following items ananda (where applicable) has been applied. Labs Laboratory Tests Test 06/08/17 00:07 06/08/17 05:15 06/08/17 14:27 06/08/17 23:00 Glucose (Fingerstick) 239 mg/dL (70-99) 169 mg/dL (70-99) Sodium Level 139 mmol/L (136-145) Potassium Level 4.1 mmol/L (3.5-5.1) 4.2 mmol/L (3.5-5.1) Chloride Level 108 mmol/L (98-107) Carbon Dioxide Level 26 mmol/L (21-32) Anion Gap 5 (6-14) Blood Urea Nitrogen 32 mg/dL (8-26) Creatinine 1.0 mg/dL (0.7-1.3) Estimated GFR (Cockcroft-Gault) 74.8 Glucose Level 198 mg/dL (70-99) Calcium Level 8.1 mg/dL (8.5-10.1) Phosphorus Level 1.9 mg/dL (2.6-4.7) Magnesium Level 2.0 mg/dL (1.8-2.4) 1.7 mg/dL (1.8-2.4) Test 06/09/17 05:29 06/09/17 06:00 Glucose (Fingerstick) 152 mg/dL (70-99) White Blood Count 10.5 x10^3/uL (4.0-11.0) Red Blood Count 3.09 x10^6/uL (4.30-5.70) Hemoglobin 9.0 g/dL (13.0-17.5) Hematocrit 26.7 % (39.0-53.0) Mean Corpuscular Volume 86 fL (79-100) Mean Corpuscular Hemoglobin 29 pg (25-35) Mean Corpuscular Hemoglobin Concent 34 g/dL (31-37) Red Cell Distribution Width 14.6 % (11.5-14.5) Platelet Count 221 x10^3/uL (140-400) Neutrophils (%) (Auto) 80 % (31-73) Lymphocytes (%) (Auto) 12 % (24-48) Monocytes (%) (Auto) 7 % (0-9) Eosinophils (%) (Auto) 1 % (0-3) Basophils (%) (Auto) 0 % (0-3) Neutrophils # (Auto) 8.3 x10^3uL (1.8-7.7) Lymphocytes # (Auto) 1.3 x10^3/uL (1.0-4.8) Monocytes # (Auto) 0.8 x10^3/uL (0.0-1.1) Eosinophils # (Auto) 0.1 x10^3/uL (0.0-0.7) Basophils # (Auto) 0.0 x10^3/uL (0.0-0.2) Sodium Level 141 mmol/L (136-145) Potassium Level 3.6 mmol/L (3.5-5.1) Chloride Level 109 mmol/L (98-107) Carbon Dioxide Level 28 mmol/L (21-32) Anion Gap 4 (6-14) Blood Urea Nitrogen 30 mg/dL (8-26) Creatinine 0.9 mg/dL (0.7-1.3) Estimated GFR (Cockcroft-Gault) 84.4 Glucose Level 132 mg/dL (70-99) Calcium Level 7.9 mg/dL (8.5-10.1) Phosphorus Level 1.9 mg/dL (2.6-4.7) Magnesium Level 1.6 mg/dL (1.8-2.4) Triglycerides Level 96 mg/dL (0-150) Laboratory Tests Test 06/08/17 14:27 06/08/17 23:00 06/09/17 05:29 06/09/17 06:00 Glucose (Fingerstick) 169 mg/dL (70-99) 152 mg/dL (70-99) Potassium Level 4.2 mmol/L (3.5-5.1) 3.6 mmol/L (3.5-5.1) Magnesium Level 1.7 mg/dL (1.8-2.4) 1.6 mg/dL (1.8-2.4) White Blood Count 10.5 x10^3/uL (4.0-11.0) Red Blood Count 3.09 x10^6/uL (4.30-5.70) Hemoglobin 9.0 g/dL (13.0-17.5) Hematocrit 26.7 % (39.0-53.0) Mean Corpuscular Volume 86 fL (79-100) Mean Corpuscular Hemoglobin 29 pg (25-35) Mean Corpuscular Hemoglobin Concent 34 g/dL (31-37) Red Cell Distribution Width 14.6 % (11.5-14.5) Platelet Count 221 x10^3/uL (140-400) Neutrophils (%) (Auto) 80 % (31-73) Lymphocytes (%) (Auto) 12 % (24-48) Monocytes (%) (Auto) 7 % (0-9) Eosinophils (%) (Auto) 1 % (0-3) Basophils (%) (Auto) 0 % (0-3) Neutrophils # (Auto) 8.3 x10^3uL (1.8-7.7) Lymphocytes # (Auto) 1.3 x10^3/uL (1.0-4.8) Monocytes # (Auto) 0.8 x10^3/uL (0.0-1.1) Eosinophils # (Auto) 0.1 x10^3/uL (0.0-0.7) Basophils # (Auto) 0.0 x10^3/uL (0.0-0.2) Sodium Level 141 mmol/L (136-145) Chloride Level 109 mmol/L (98-107) Carbon Dioxide Level 28 mmol/L (21-32) Anion Gap 4 (6-14) Blood Urea Nitrogen 30 mg/dL (8-26) Creatinine 0.9 mg/dL (0.7-1.3) Estimated GFR (Cockcroft-Gault) 84.4 Glucose Level 132 mg/dL (70-99) Calcium Level 7.9 mg/dL (8.5-10.1) Phosphorus Level 1.9 mg/dL (2.6-4.7) Triglycerides Level 96 mg/dL (0-150) Microbiology 06/06/17 Anaerobic/Aerobic Culture, Resulted Pending 06/06/17 Anaerobic Culture Result 1 (AISSATOU), Resulted Pending 06/06/17 Aerobic Culture - Final, Resulted 06/06/17 Aerobic Culture Result 1 (AISSATOU) - Final, Resulted 06/06/17 Aerobic Culture Result 2 (AISSATOU) - Final, Resulted 06/06/17 Antimicrobic Susceptibility - Final, Resulted Medications Current Medications Sodium Chloride 1,000 ml @ 1,000 mls/hr 1X ONCE IV Last administered on 08:22; Start 06/06/17 at 08:30; Stop 06/06/17 at 09:29; Status DC Ondansetron HCl (Zofran) 8 mg 1X ONCE IV Last administered on 06/06/17 08:23 ; Start 06/06/17 at 08:30; Stop 06/06/17 at 08:31; Status DC Morphine Sulfate 5 mg 1X ONCE IV Last administered on 06/06/17 08:29; Start 06/06/17 at 08:30; Stop 06/06/17 at 08:31; Status DC Potassium Chloride (Klor-Con) 40 meq 1X ONCE PO Last administered on 09:31; Start 06/06/17 at 08:30; Stop 06/06/17 at 08:31; Status DC Potassium Chloride/Sodium Chloride 1,000 ml @ 250 mls/hr 1X ONCE IV Last administered on 06/06/17 09:36; Start 06/06/17 at 08:30; Stop 06/06/17 at 12:29 ; Status DC Iohexol (Omnipaque 300 Mg/ml) 60 ml 1X ONCE IV Last administered on 06/06/17 08:51; Start 06/06/17 at 08:45; Stop 06/06/17 at 08:46; Status DC Magnesium Oxide (Magnesium Oxide) 800 mg 1X STAT PO Last administered on 09:31; Start 06/06/17 at 08:37; Stop 06/06/17 at 08:40; Status DC Info (Do NOT chart on this entry -- for MONITORING) 1 each PRN DAILY PRN MC SEE COMMENTS; Start 06/06/17 at 08:45; Stop 06/08/17 at 08:44; Status DC Metronidazole 100 ml @ 100 mls/hr 1X ONCE IV Last administered on 06/06/17 10:00; Start 06/06/17 at 09:30; Stop 06/06/17 at 10:29; Status DC Levofloxacin/ Dextrose (Levaquin Per Pharmacy) 1 each PRN DAILY PRN MC SEE COMMENTS; Start 06/06/17 at 09:30; Stop 06/08/17 at 09:20; Status DC Levofloxacin/ Dextrose 100 ml @ 100 mls/hr 1X ONCE IV ; Start 06/06/17 at 09: 30; Stop 06/06/17 at 10:29; Status DC Levofloxacin/ Dextrose 100 ml @ 100 mls/hr Q24H IV Last administered on t 11:36; Start 06/07/17 at 10:00; Stop 06/08/17 at 08:03; Status DC Rocuronium [place] (Zemuron) 100 mg STK-MED ONCE .ROUTE ; Start 06/06/17 at 10: 28; Stop 06/06/17 at 10:29; Status DC Fentanyl Citrate (Fentanyl 5ml Vial) 250 mcg STK-MED ONCE .ROUTE ; Start at 10:28; Stop 06/06/17 at 10:29; Status DC Propofol 20 ml @ As Directed STK-MED ONCE IV ; Start 06/06/17 at 10:32; Stop at 10:33; Status DC Lidocaine HCl (Lidocaine Pf 2% Vial) 5 ml STK-MED ONCE .ROUTE ; Start 06/06/17 at 10:32; Stop 06/06/17 at 10:33; Status DC Ondansetron HCl (Zofran) 4 mg STK-MED ONCE .ROUTE ; Start 06/06/17 at 10:33; Stop 06/06/17 at 10:34; Status DC Dexamethasone Sodium Phosphate (Decadron) 20 mg STK-MED ONCE .ROUTE ; Start 06/06/17 at 10:33; Stop 06/06/17 at 10:34; Status DC Multivitamins 10 ml/Folic Acid 1 mg/Thiamine HCl 100 mg/Ringer's Solution 1, 011.2 ml @ 1,000 mls/ hr 1X ONCE IV ; Start 06/06/17 at 11:30; Stop 06/06/17 at 12:30; Status DC Fentanyl Citrate (Fentanyl 2ml Vial) 25 mcg PRN Q5MIN PRN IV MILD PAIN; Start 06/06/17 at 11:45; Stop 06/07/17 at 11:44; Status DC Fentanyl Citrate (Fentanyl 2ml Vial) 50 mcg PRN Q5MIN PRN IV MODERATE PAIN Last administered on 06/06/17t 17:24; Start 06/06/17 at 11:45; Stop 06/07/17 at 11:44; Status DC Morphine Sulfate 1 mg PRN Q10MIN PRN IV SEVERE PAIN Last administered on t 15:38; Start 06/06/17 at 11:45; Stop 06/07/17 at 11:44; Status DC Ringer's Solution 1,000 ml @ 30 mls/hr Q24H IV ; Start 06/06/17 at 11:39; Stop 06/06/17 at 23:38; Status DC Lidocaine HCl (Xylocaine-Mpf 1% Vial) 2 ml 1X PRN PRN ID IV START; Start at 11:45; Stop 06/07/17 at 11:44; Status DC Hydromorphone HCl (Dilaudid) 0.5 mg PRN Q10MIN PRN IV SEV PAIN, Second choice; Start 06/06/17 at 11:45; Stop 06/07/17 at 11:44; Status DC Prochlorperazine Edisylate (Compazine) 5 mg PACU PRN PRN IV NAUSEA, MRX1; Start 06/06/17 at 11:45; Stop 06/07/17 at 11:44; Status DC Phenylephrine HCl (Pedro-Synephrine Inj) 10 mg STK-MED ONCE .ROUTE ; Start at 11:58; Stop 06/06/17 at 11:59; Status DC Sodium Chloride (Sodium Chloride) 50 ml STK-MED ONCE IJ ; Start 06/06/17 at 11: 58; Stop 06/06/17 at 11:59; Status DC Sevoflurane (Ultane) 90 ml STK-MED ONCE IH ; Start 06/06/17 at 13:52; Stop 06/06 at 13:53; Status DC Neostigmine Methylsulfate 5 mg STK-MED ONCE .ROUTE ; Start 06/06/17 at 13:52; Stop 06/06/17 at 13:53; Status DC Glycopyrrolate (Robinul) 1 mg STK-MED ONCE .ROUTE ; Start 06/06/17 at 13:52; Stop 06/06/17 at 13:53; Status DC Fentanyl Citrate (Fentanyl 2ml Vial) 100 mcg STK-MED ONCE .ROUTE ; Start at 14:18; Stop 06/06/17 at 14:19; Status DC Diphenhydramine HCl (Benadryl) 25 mg PRN Q6HRS PRN IV ITCHING; Start 06/06/17 at 14:30 Enoxaparin Sodium (Lovenox 40mg Syringe) 40 mg Q24H SQ Last administered on 15:00; Start 06/06/17 at 15:00; Stop 06/06/17 at 15:41; Status DC Sodium Chloride (Normal Saline Flush) 3 ml QSHIFT PRN IV AFTER MEDS AND BLOOD DRAWS; Start 06/06/17 at 14:30 Potassium Chloride/Sodium Chloride 1,000 ml @ 100 mls/hr Q10H IV Last administered on 06/07/17 20:00; Start 06/06/17 at 15:00; Stop 06/08/17 at 09: 20; Status DC Hydromorphone HCl 30 ml @ 0 mls/hr CONT PRN PRN IV PROTOCOL; Start 06/06/17 at 14:30; Stop 06/06/17 at 17:30; Status DC Ondansetron HCl (Zofran) 4 mg PRN Q6HRS PRN IV NAUESA, 1ST CHOICE; Start at 14:30 Epinephrine (S2 Racepinephrine) 0.5 ml STK-MED ONCE .ROUTE ; Start 06/06/17 at 14:35; Stop 06/06/17 at 14:36; Status DC Propofol 50 ml @ As Directed STK-MED ONCE IV ; Start 06/06/17 at 14:38; Stop at 14:39; Status DC Succinylcholine Chloride (Anectine) 200 mg STK-MED ONCE .ROUTE ; Start 06/06/17 at 14:40; Stop 06/06/17 at 14:41; Status DC Epinephrine (S2 Racepinephrine) 0.5 ml 1X ONCE NEB Last administered on 14:43; Start 06/06/17 at 14:36; Stop 06/06/17 at 14:43; Status DC Midazolam HCl (Versed) 2 mg STK-MED ONCE .ROUTE ; Start 06/06/17 at 14:48; Stop 06/06/17 at 14:49; Status DC Propofol 100 ml @ 0 mls/hr CONT PRN IV SEE I/O RECORD; Start 06/06/17 at 15:15 ; Stop 06/08/17 at 09:20; Status DC Propofol 50 ml @ As Directed STK-MED ONCE IV ; Start 06/06/17 at 15:03; Stop at 15:04; Status DC Dexamethasone Sodium Phosphate (Decadron) 12 mg 1X ONCE IV Last administered on 06/06/17 15:09; Start 06/06/17 at 15:00; Stop 06/06/17 at 15:06; Status DC Dexamethasone Sodium Phosphate (Decadron) 4 mg STK-MED ONCE .ROUTE ; Start 06/06 at 15:05; Stop 06/06/17 at 15:06; Status DC Propofol 50 ml @ 0 mls/hr 1X ONCE IV Last administered on 06/06/17 15:02; Start 06/06/17 at 15:15; Stop 06/06/17 at 15:16; Status DC Succinylcholine Chloride (Anectine) 200 mg 1X ONCE IV ; Start 06/06/17 at 15:15 ; Stop 06/06/17 at 15:16; Status DC Midazolam HCl (Versed) 2 mg 1X ONCE IV ; Start 06/06/17 at 15:15; Stop at 15:16; Status DC Cellulose 1 each STK-MED ONCE .ROUTE Last administered on 06/06/17 13:35; Start 06/06/17 at 14:19; Stop 06/06/17 at 15:20; Status DC Enoxaparin Sodium (Lovenox 40mg Syringe) 40 mg Q24H SQ Last administered on 11:17; Start 06/07/17 at 09:00 Metronidazole 100 ml @ 100 mls/hr Q12HR IV Last administered on 06/08/17 22: 41; Start 06/06/17 at 21:00 Multivitamins 10 ml/Folic Acid 1 mg/Thiamine HCl 100 mg/Dextrose/ Lactated Ringer's 1,011.2 ml @ 100 mls/ hr DAILY IV Last administered on 06/07/17 09: 21; Start 06/07/17 at 09:00; Stop 06/08/17 at 08:06; Status DC Lorazepam (Ativan) 2 mg PRN Q4HRS PRN IV ANXIETY / AGITATION; Start 06/06/17 at 15:45 Famotidine (Pepcid) 20 mg BID IVP Last administered on 06/08/17 11:18; Start 06/06/17 at 21:00; Stop 06/09/17 at 07:53; Status DC Morphine Sulfate 2 mg PRN Q2HR PRN IV PAIN; Start 06/06/17 at 15:45 Morphine Sulfate 4 mg PRN Q2HR PRN IV PAIN; Start 06/06/17 at 15:45 Ondansetron HCl (Zofran) 4 mg PRN Q6HRS PRN IV NAUSEA/VOMITING; Start 06/06/17 at 15:45; Stop 06/06/17 at 15:45; Status DC Fentanyl Citrate 30 ml @ 0 mls/hr CONT PRN IV PROTOCOL Last administered on 02:54; Start 06/06/17 at 17:30; Stop 06/07/17 at 10:39; Status DC Midazolam HCl 100 ml @ 0 mls/hr CONT PRN IV SEE I/O RECORD; Start 06/06/17 at 23:00; Stop 06/08/17 at 09:20; Status DC Sodium Chloride 1,000 ml @ 1,000 mls/hr 1X ONCE IV Last administered on 23:34; Start 06/06/17 at 23:00; Stop 06/06/17 at 23:59; Status DC Magnesium Sulfate/ Dextrose 50 ml @ 25 mls/hr 1X ONCE IV Last administered on 06/07/17 09:28; Start 06/07/17 at 08:15; Stop 06/07/17 at 10:14; Status DC Info 1 each PRN DAILY PRN MC SEE COMMENTS Last administered on 06/08/17 11:31 ; Start 06/07/17 at 09:30 Methylprednisolone Sodium Succinate (SOLU-Medrol 125MG VIAL) 50 mg DAILY IV Last administered on 06/08/17 11:18; Start 06/07/17 at 11:00 Hydromorphone HCl 30 ml @ 0 mls/hr CONT PRN PRN IV PROTOCOL Last administered on 06/07/17 11:16; Start 06/07/17 at 10:45 Sodium Chloride 90 meq/Potassium Chloride 50 meq/ Potassium Phosphate 13.6 mmol/ Magnesium Sulfate 10 meq/ Calcium Gluconate 10 meq/ Multivitamins 10 ml/Chromium / Copper/Manganese/ Seleni/Zn 1 ml/ Total Parenteral Nutrition/Amino Acids/ Dextrose/ Fat Emulsion Intravenous 1,512 ml @ 63 mls/hr TPN CONT IV Last administered on 06/07/17 22:04; Start 06/07/17 at 22:00; Stop 06/08/17 at 21 :59; Status DC Influenza Virus Vaccine Quadrival (Fluarix Quad [id number] Syringe) 0.5 ml ONCE ONCE VAX IM Last administered on 06/08/17 13:23; Start 06/07/17 at 16:15; Stop 06/07/17 at 16:35; Status DC Pneumococcal Polyvalent Vaccine (Do NOT chart on this placeholder) 1 each PRN 1X PRN MC SEE COMMENTS; Start 06/07/17 at 16:45; Status UNV Pneumococcal Polyvalent Vaccine (Pneumovax 23) 0.5 ml ONCE ONCE VAX IM Last administered on 06/08/17 13:25; Start 06/07/17 at 17:00; Stop 06/07/17 at 17 :01; Status DC Ceftriaxone Sodium 1 gm/ Sodium Chloride 50 ml @ 100 mls/hr Q24H IV Last administered on 06/08/17 11:16; Start 06/08/17 at 09:00 Sodium Phosphate 20 mmol/Dextrose 256.6667 ml @ 64.167 m... 1X ONCE IV Last administered on 06/08/17 08:58; Start 06/08/17 at 09:00; Stop 06/08/17 at 12 :59; Status DC Multi-Ingred Cream/Lotion/Oil/ Oint (Artificial Tears Eye Oint) 1 juvenal PRN Q1HR PRN OU DRY EYE; Start 06/08/17 at 09:15 Sodium Chloride 90 meq/Potassium Chloride 40 meq/ Potassium Phosphate 17 mmol/ Magnesium Sulfate 10 meq/Calcium Gluconate 10 meq/ Multivitamins 10 ml/Chromium / Copper/Manganese/ Seleni/Zn 1 ml/ Total Parenteral Nutrition/Amino Acids/ Dextrose/ Fat Emulsion Intravenous 1,512 ml @ 63 mls/hr TPN CONT IV Last administered on 06/08/17 22:42; Start 06/08/17 at 22:00; Stop 06/09/17 at 21 :59 Diclofenac Sodium (Voltaren) 1 juvenal BID TP ; Start 06/08/17 at 21:00 Oxycodone/ Acetaminophen (Percocet 10/325) 1 tab PRN Q4HRS PRN PO pain; Start 06/09/17 at 08:00 Magnesium Sulfate/ Dextrose 50 ml @ 25 mls/hr 1X ONCE IV ; Start 06/09/17 at 08:00; Stop 06/09/17 at 09:59 Potassium Phosphate (K-Phos Original) 500 mg BID PO ; Start 06/09/17 at 09:00 Active Scripts Active Reported [prednisone taper] Metoprolol Succinate ( Xl ) (Metoprolol Succinate) 100 Mg Tab.er.24h 1 Tab PO DAILY Lisinopril 10 Mg Tablet 1 Tab PO DAILY Hydrochlorothiazide Tablet (Hydrochlorothiazide) 50 Mg Tablet 25 Tab PO DAILY Vitals/I & O Vital Sign - Last 24 Hours 06/08/17 06/08/17 06/08/17 06/08/17 09:00 10:00 11:00 12:00 Pulse 68 72 74 74 Resp 10 07 15 16 B/P (MAP) 154/85 (108) 144/79 (100) 176/92 (120) 164/86 (112) Pulse Ox 96 95 93 95 O2 Delivery Room Air Room Air Room Air Room Air 06/08/17 06/08/17 06/08/17 06/08/17 12:00 13:00 15:00 19:00 Temp 99.1 97.0 99.1 97.0 Pulse 74 66 70 Resp 12 18 B/P (MAP) 167/87 (113) 177/89 (118) 177/89 (118) Pulse Ox 95 96 99 O2 Delivery Room Air Room Air Room Air Room Air O2 Flow Rate 2.0 06/08/17 06/08/17 06/08/17 06/09/17 20:12 23:00 23:00 03:00 Temp 97.0 99.0 97.0 97.0 99.0 97.0 Pulse 70 85 70 Resp 16 B/P (MAP) 177/89 (118) 174/85 (114) 177/85 (115) Pulse Ox 99 90 99 O2 Delivery Room Air Room Air Room Air O2 Flow Rate 2.0 2.0 06/09/17 07:00 Temp 98.5 98.5 Pulse 62 Resp 18 B/P (MAP) 150/69 (96) Pulse Ox 93 O2 Delivery Room Air Intake and Output 06/09/17 06/09/17 06/10/17 14:59 22:59 06:59 Output Total 10 ml Balance -10 ml TAMMY LEPE MD Jun 09, 2017 09:00
[2017-06-09] MEDS: ENOXAPARIN 40 MG/0.4 ML SYRINGE. SQ SCH (09:27)
[2017-06-09] MEDS: POTASSIUM PHOSPHATE,MONOBASIC 500 MG TABLET. PO SCH ×2 (09:28→22:10)
[2017-06-09] MEDS: methylPREDNISolone SOD SUCC PF 125 MG/2 ML VIAL. IV SCH (09:29)
[2017-06-09] MEDS: DICLOFENAC SODIUM 1% TOPICAL GEL 100GM TUBE. TP SCH ×2 (09:30→21:00)
[2017-06-09] MEDS: LIDOCAINE (700MG/PATCH) PATCH. TD SCH (09:36)
--- NOTE | 2017-06-09 10:05 | PDOC ---
Infectious Disease Note Subjective Subjective pt is feeling good, up in chair ROS ROS GEN: Denies fevers, chills, sweats HEENT: Denies blurred vision, sore throat CV: Denies chest pain RESP: Denies shortness of air, cough GI: Denies n/v/d NEURO: Denies confusion, dizziness MSK: Denies weakness, joint pain/swelling Vital Sign Vital Signs Vital Signs Date Time Temp Pulse Resp B/P (MAP) Pulse Ox O2 Delivery O2 Flow Rate FiO2 06/09/17 07:00 98.5 62 18 150/69 (96) 93 Room Air 98.5 06/09/17 03:00 2.0 Physical Exam PHYSICAL EXAM GENERAL: NAD, Alert HEENT: PERRL, OC/OP NECK: Supple, no JVD, no LN LUNGS: Clear HEART: S1S2, no gallop, no murmur ABD: Soft, NT, no organomegaly, no rebound EXT: No edema, no cyanosis POLICEWOMAN: Alert, oriented x 3, no focal neurologic deficit SKIN: No rash IV: ok Labs Lab Laboratory Tests Test 06/08/17 14:27 06/08/17 23:00 06/09/17 05:29 06/09/17 06:00 Glucose (Fingerstick) 169 mg/dL (70-99) 152 mg/dL (70-99) Potassium Level 4.2 mmol/L (3.5-5.1) 3.6 mmol/L (3.5-5.1) Magnesium Level 1.7 mg/dL (1.8-2.4) 1.6 mg/dL (1.8-2.4) White Blood Count 10.5 x10^3/uL (4.0-11.0) Red Blood Count 3.09 x10^6/uL (4.30-5.70) Hemoglobin 9.0 g/dL (13.0-17.5) Hematocrit 26.7 % (39.0-53.0) Mean Corpuscular Volume 86 fL (79-100) Mean Corpuscular Hemoglobin 29 pg (25-35) Mean Corpuscular Hemoglobin Concent 34 g/dL (31-37) Red Cell Distribution Width 14.6 % (11.5-14.5) Platelet Count 221 x10^3/uL (140-400) Neutrophils (%) (Auto) 80 % (31-73) Lymphocytes (%) (Auto) 12 % (24-48) Monocytes (%) (Auto) 7 % (0-9) Eosinophils (%) (Auto) 1 % (0-3) Basophils (%) (Auto) 0 % (0-3) Neutrophils # (Auto) 8.3 x10^3uL (1.8-7.7) Lymphocytes # (Auto) 1.3 x10^3/uL (1.0-4.8) Monocytes # (Auto) 0.8 x10^3/uL (0.0-1.1) Eosinophils # (Auto) 0.1 x10^3/uL (0.0-0.7) Basophils # (Auto) 0.0 x10^3/uL (0.0-0.2) Sodium Level 141 mmol/L (136-145) Chloride Level 109 mmol/L (98-107) Carbon Dioxide Level 28 mmol/L (21-32) Anion Gap 4 (6-14) Blood Urea Nitrogen 30 mg/dL (8-26) Creatinine 0.9 mg/dL (0.7-1.3) Estimated GFR (Cockcroft-Gault) 84.4 Glucose Level 132 mg/dL (70-99) Calcium Level 7.9 mg/dL (8.5-10.1) Phosphorus Level 1.9 mg/dL (2.6-4.7) Triglycerides Level 96 mg/dL (0-150) Micro ANAEROBIC-AEROBIC CULTURE PENDING ANAEROBIC RES 1 PENDING AEROBIC CULT Final Final report AEROBIC RES 1 Final Escherichia coli Moderate growth AEROBIC RES 2 Final Mixed site destinee. Light growth ANTIMICROBIAL SUSCEPTIBILITY Final Comment S = Susceptible; I = Intermediate; R = Resistant P = Positive; N = Negative MICS are expressed in micrograms per mL Antibiotic RSLT#1 RSLT#2 RSLT#3 RSLT#4 Amoxicillin/Clavulanic Acid S Ampicillin R Cefepime S Ceftriaxone S Cefuroxime S Ciprofloxacin R Ertapenem S Gentamicin S Imipenem S Levofloxacin R Piperacillin R Tetracycline S Tobramycin S CONTINUED ON NEXT PAGE RUN DATE: 06/08/17 PAGE 2 RUN TIME: 732 [facility] [address] [place] [address] Kev Montoya M.D., [employer] SPEC: [id number] PATIENT: GOPI RODRIGUEZ [id number] ( Continued) Procedure Result ANTIMICROBIAL SUSCEPTIBILITY Final (continued) Trimethoprim/Sulfa S Performed at: [address] [id number] [employer] Plate: Alexia Greer MD, Phone: [phone] Objective Assessment Perforated viscus with fecal peritonitis Abdominal pain HTN Respiratory failure Chronic back pain Plan Plan of Care cont rocephine and flagyl supportive care will check cultures and adjust JYOTI JIANG MD Jun 09, 2017 10:05
[2017-06-09 11:00] VITALS: BP 147/77
[2017-06-09] MEDS: oxyCODONE/APAP 10/325 1 TAB TABLET PO PRN ×3 (11:07→22:09)
[2017-06-09] MEDS: TPN PER PHARMACY MC PRN (12:53)
[2017-06-09] MEDS ORDERED: POTASSIUM PHOSPHATE DIBASIC 13.6 MMOL in IV NORMAL SALINE 100ML 100 ML IV ONE (13:30)
--- NOTE | 2017-06-09 14:08 | PDOC ---
MIAN LYNCH HUMAN RESOURCES COORDINATOR 06/09/17 1408: SURGICAL PROGRESS NOTE Subjective tolerating diet pain managed no n/v Vital Signs Vital Signs Date Time Temp Pulse Resp B/P (MAP) Pulse Ox O2 Delivery O2 Flow Rate FiO2 06/09/17 13:46 93 Room Air 2.0 06/09/17 11:00 98.6 68 18 147/77 (100) 98.6 I&O Intake and Output 06/10/17 07:00 Output Total 10 ml Balance -10 ml Drainage Total 10 ml General: Alert, Oriented X3, Cooperative, No acute distress Abdomen: Soft, Other (stoma pink, drains in place, serous) Labs Laboratory Tests Test 06/08/17 00:07 06/08/17 05:15 06/08/17 14:27 06/08/17 23:00 Glucose (Fingerstick) 239 mg/dL (70-99) 169 mg/dL (70-99) Sodium Level 139 mmol/L (136-145) Potassium Level 4.1 mmol/L (3.5-5.1) 4.2 mmol/L (3.5-5.1) Chloride Level 108 mmol/L (98-107) Carbon Dioxide Level 26 mmol/L (21-32) Anion Gap 5 (6-14) Blood Urea Nitrogen 32 mg/dL (8-26) Creatinine 1.0 mg/dL (0.7-1.3) Estimated GFR (Cockcroft-Gault) 74.8 Glucose Level 198 mg/dL (70-99) Calcium Level 8.1 mg/dL (8.5-10.1) Phosphorus Level 1.9 mg/dL (2.6-4.7) Magnesium Level 2.0 mg/dL (1.8-2.4) 1.7 mg/dL (1.8-2.4) Test 06/09/17 05:29 06/09/17 06:00 Glucose (Fingerstick) 152 mg/dL (70-99) White Blood Count 10.5 x10^3/uL (4.0-11.0) Red Blood Count 3.09 x10^6/uL (4.30-5.70) Hemoglobin 9.0 g/dL (13.0-17.5) Hematocrit 26.7 % (39.0-53.0) Mean Corpuscular Volume 86 fL (79-100) Mean Corpuscular Hemoglobin 29 pg (25-35) Mean Corpuscular Hemoglobin Concent 34 g/dL (31-37) Red Cell Distribution Width 14.6 % (11.5-14.5) Platelet Count 221 x10^3/uL (140-400) Neutrophils (%) (Auto) 80 % (31-73) Lymphocytes (%) (Auto) 12 % (24-48) Monocytes (%) (Auto) 7 % (0-9) Eosinophils (%) (Auto) 1 % (0-3) Basophils (%) (Auto) 0 % (0-3) Neutrophils # (Auto) 8.3 x10^3uL (1.8-7.7) Lymphocytes # (Auto) 1.3 x10^3/uL (1.0-4.8) Monocytes # (Auto) 0.8 x10^3/uL (0.0-1.1) Eosinophils # (Auto) 0.1 x10^3/uL (0.0-0.7) Basophils # (Auto) 0.0 x10^3/uL (0.0-0.2) Sodium Level 141 mmol/L (136-145) Potassium Level 3.6 mmol/L (3.5-5.1) Chloride Level 109 mmol/L (98-107) Carbon Dioxide Level 28 mmol/L (21-32) Anion Gap 4 (6-14) Blood Urea Nitrogen 30 mg/dL (8-26) Creatinine 0.9 mg/dL (0.7-1.3) Estimated GFR (Cockcroft-Gault) 84.4 Glucose Level 132 mg/dL (70-99) Calcium Level 7.9 mg/dL (8.5-10.1) Phosphorus Level 1.9 mg/dL (2.6-4.7) Magnesium Level 1.6 mg/dL (1.8-2.4) Triglycerides Level 96 mg/dL (0-150) Laboratory Tests Test 06/08/17 14:27 06/08/17 23:00 06/09/17 05:29 06/09/17 06:00 Glucose (Fingerstick) 169 mg/dL (70-99) 152 mg/dL (70-99) Potassium Level 4.2 mmol/L (3.5-5.1) 3.6 mmol/L (3.5-5.1) Magnesium Level 1.7 mg/dL (1.8-2.4) 1.6 mg/dL (1.8-2.4) White Blood Count 10.5 x10^3/uL (4.0-11.0) Red Blood Count 3.09 x10^6/uL (4.30-5.70) Hemoglobin 9.0 g/dL (13.0-17.5) Hematocrit 26.7 % (39.0-53.0) Mean Corpuscular Volume 86 fL (79-100) Mean Corpuscular Hemoglobin 29 pg (25-35) Mean Corpuscular Hemoglobin Concent 34 g/dL (31-37) Red Cell Distribution Width 14.6 % (11.5-14.5) Platelet Count 221 x10^3/uL (140-400) Neutrophils (%) (Auto) 80 % (31-73) Lymphocytes (%) (Auto) 12 % (24-48) Monocytes (%) (Auto) 7 % (0-9) Eosinophils (%) (Auto) 1 % (0-3) Basophils (%) (Auto) 0 % (0-3) Neutrophils # (Auto) 8.3 x10^3uL (1.8-7.7) Lymphocytes # (Auto) 1.3 x10^3/uL (1.0-4.8) Monocytes # (Auto) 0.8 x10^3/uL (0.0-1.1) Eosinophils # (Auto) 0.1 x10^3/uL (0.0-0.7) Basophils # (Auto) 0.0 x10^3/uL (0.0-0.2) Sodium Level 141 mmol/L (136-145) Chloride Level 109 mmol/L (98-107) Carbon Dioxide Level 28 mmol/L (21-32) Anion Gap 4 (6-14) Blood Urea Nitrogen 30 mg/dL (8-26) Creatinine 0.9 mg/dL (0.7-1.3) Estimated GFR (Cockcroft-Gault) 84.4 Glucose Level 132 mg/dL (70-99) Calcium Level 7.9 mg/dL (8.5-10.1) Phosphorus Level 1.9 mg/dL (2.6-4.7) Triglycerides Level 96 mg/dL (0-150) Problem List Problems Medical Problems: (1) Abdominal pain Status: Acute (2) Elevated brain natriuretic peptide (BNP) level Status: Acute (3) Hypomagnesemia Status: Acute (4) Perforated abdominal viscus Status: Acute Assessment/Plan s/p sigmoidectomy, colostomy liquids, await bowel function oral pain meds continue drains, IV abx Problems: MARY MARTINEZ MD 06/09/17 1514: SURGICAL PROGRESS NOTE Assessment/Plan pt seen and examined agree with above Problems: MINA LYNCH APRN Jun 09, 2017 14:08 MARY MARTINEZ MD Jun 09, 2017 15:14
[2017-06-09 15:00] VITALS: BP 149/79
--- NOTE | 2017-06-09 16:12 | PDOC ---
CARDIO Progress Notes Date and Time Date of Service 06/09/2017 Time of Evaluation 1330 Subjective Subjective: No Chest Pain, No shortness of breath, No Palpitations Vitals Vitals Vital Signs Date Time Temp Pulse Resp B/P (MAP) Pulse Ox O2 Delivery O2 Flow Rate FiO2 06/09/17 15:00 98.8 65 18 149/79 (102) 94 Room Air 98.8 06/09/17 13:46 2.0 Weight Weight [ ] Input and Output Intake and Output Intake and Output 06/10/17 07:00 Output Total 10 ml Balance -10 ml Drainage Total 10 ml Laboratory Labs Laboratory Tests Test 06/08/17 23:00 06/09/17 05:29 06/09/17 06:00 Potassium Level 4.2 mmol/L (3.5-5.1) 3.6 mmol/L (3.5-5.1) Magnesium Level 1.7 mg/dL (1.8-2.4) 1.6 mg/dL (1.8-2.4) Glucose (Fingerstick) 152 mg/dL (70-99) White Blood Count 10.5 x10^3/uL (4.0-11.0) Red Blood Count 3.09 x10^6/uL (4.30-5.70) Hemoglobin 9.0 g/dL (13.0-17.5) Hematocrit 26.7 % (39.0-53.0) Mean Corpuscular Volume 86 fL (79-100) Mean Corpuscular Hemoglobin 29 pg (25-35) Mean Corpuscular Hemoglobin Concent 34 g/dL (31-37) Red Cell Distribution Width 14.6 % (11.5-14.5) Platelet Count 221 x10^3/uL (140-400) Neutrophils (%) (Auto) 80 % (31-73) Lymphocytes (%) (Auto) 12 % (24-48) Monocytes (%) (Auto) 7 % (0-9) Eosinophils (%) (Auto) 1 % (0-3) Basophils (%) (Auto) 0 % (0-3) Neutrophils # (Auto) 8.3 x10^3uL (1.8-7.7) Lymphocytes # (Auto) 1.3 x10^3/uL (1.0-4.8) Monocytes # (Auto) 0.8 x10^3/uL (0.0-1.1) Eosinophils # (Auto) 0.1 x10^3/uL (0.0-0.7) Basophils # (Auto) 0.0 x10^3/uL (0.0-0.2) Sodium Level 141 mmol/L (136-145) Chloride Level 109 mmol/L (98-107) Carbon Dioxide Level 28 mmol/L (21-32) Anion Gap 4 (6-14) Blood Urea Nitrogen 30 mg/dL (8-26) Creatinine 0.9 mg/dL (0.7-1.3) Estimated GFR (Cockcroft-Gault) 84.4 Glucose Level 132 mg/dL (70-99) Calcium Level 7.9 mg/dL (8.5-10.1) Phosphorus Level 1.9 mg/dL (2.6-4.7) Triglycerides Level 96 mg/dL (0-150) Microbiology Micro Microbiology 06/06/17 Anaerobic/Aerobic Culture - Final, Complete 06/06/17 Anaerobic Culture Result 1 (AISSATOU) - Final, Complete 06/06/17 Anaerobic Culture Result 2 (AISSATOU) - Final, Complete 06/06/17 Aerobic Culture - Final, Complete 06/06/17 Aerobic Culture Result 1 (AISSATOU) - Final, Complete 06/06/17 Aerobic Culture Result 2 (AISSATOU) - Final, Complete 06/06/17 Antimicrobic Susceptibility - Final, Complete Physical Exam HEENT: Neck Supple W Full Motion Chest: Symmetric LUNGS: Clear to Auscultation, Other (diminished bases) Heart: S1S2, RRR Abdomen: Soft N/T Extremities: No Calf Tenderness Neurology: alert, oriented, follow commands Assessment Assessment 1. New onset atrial fib: multifactorial with pain, ETOH, and perforated viscus. Presently off tele monitor. 2. +coronary calcium score: good cardiac tolerance with surgery noted below. TTE with normal wall motion and EF. 3. Alcoholism 4. Perforated bowel: S/P Ex lap with sigmoid resection and colostomy placement. Doing well. 5. HTN: labile Recommendations 1. Pt is off tele monitor but no notable episodes of palpitations or tachycardia per VS. With his BP being labile will proceed with toprol. 2. Continue with rhythm monitoring and replace tele monitor. Discussed with pt and spouse and will arrange for event monitor and f/u in office post monitor. ASHLEIGH LOVELACE APRN Jun 09, 2017 16:12
--- NOTE | 2017-06-09 17:41 | PDOC ---
PULMONARY PROGRESS NOTES Subjective PT SITTING UP IN CHAIR Vitals Vital Signs Date Time Temp Pulse Resp B/P (MAP) Pulse Ox O2 Delivery O2 Flow Rate FiO2 06/09/17 17:00 94 Room Air 2.0 06/09/17 15:00 98.8 65 18 149/79 (102) 98.8 ROS: No Nausea, No Chest Pain, No Increase Cough General: Alert Lungs: Clear Cardiovascular: S1, S2 Abdomen: Soft Neuro Exam: Alert Extremities: No Edema Skin: Warm Labs Laboratory Tests Test 06/08/17 00:07 06/08/17 05:15 06/08/17 14:27 06/08/17 23:00 Glucose (Fingerstick) 239 mg/dL (70-99) 169 mg/dL (70-99) Sodium Level 139 mmol/L (136-145) Potassium Level 4.1 mmol/L (3.5-5.1) 4.2 mmol/L (3.5-5.1) Chloride Level 108 mmol/L (98-107) Carbon Dioxide Level 26 mmol/L (21-32) Anion Gap 5 (6-14) Blood Urea Nitrogen 32 mg/dL (8-26) Creatinine 1.0 mg/dL (0.7-1.3) Estimated GFR (Cockcroft-Gault) 74.8 Glucose Level 198 mg/dL (70-99) Calcium Level 8.1 mg/dL (8.5-10.1) Phosphorus Level 1.9 mg/dL (2.6-4.7) Magnesium Level 2.0 mg/dL (1.8-2.4) 1.7 mg/dL (1.8-2.4) Test 06/09/17 05:29 06/09/17 06:00 Glucose (Fingerstick) 152 mg/dL (70-99) White Blood Count 10.5 x10^3/uL (4.0-11.0) Red Blood Count 3.09 x10^6/uL (4.30-5.70) Hemoglobin 9.0 g/dL (13.0-17.5) Hematocrit 26.7 % (39.0-53.0) Mean Corpuscular Volume 86 fL (79-100) Mean Corpuscular Hemoglobin 29 pg (25-35) Mean Corpuscular Hemoglobin Concent 34 g/dL (31-37) Red Cell Distribution Width 14.6 % (11.5-14.5) Platelet Count 221 x10^3/uL (140-400) Neutrophils (%) (Auto) 80 % (31-73) Lymphocytes (%) (Auto) 12 % (24-48) Monocytes (%) (Auto) 7 % (0-9) Eosinophils (%) (Auto) 1 % (0-3) Basophils (%) (Auto) 0 % (0-3) Neutrophils # (Auto) 8.3 x10^3uL (1.8-7.7) Lymphocytes # (Auto) 1.3 x10^3/uL (1.0-4.8) Monocytes # (Auto) 0.8 x10^3/uL (0.0-1.1) Eosinophils # (Auto) 0.1 x10^3/uL (0.0-0.7) Basophils # (Auto) 0.0 x10^3/uL (0.0-0.2) Sodium Level 141 mmol/L (136-145) Potassium Level 3.6 mmol/L (3.5-5.1) Chloride Level 109 mmol/L (98-107) Carbon Dioxide Level 28 mmol/L (21-32) Anion Gap 4 (6-14) Blood Urea Nitrogen 30 mg/dL (8-26) Creatinine 0.9 mg/dL (0.7-1.3) Estimated GFR (Cockcroft-Gault) 84.4 Glucose Level 132 mg/dL (70-99) Calcium Level 7.9 mg/dL (8.5-10.1) Phosphorus Level 1.9 mg/dL (2.6-4.7) Magnesium Level 1.6 mg/dL (1.8-2.4) Triglycerides Level 96 mg/dL (0-150) Laboratory Tests Test 06/08/17 23:00 06/09/17 05:29 06/09/17 06:00 Potassium Level 4.2 mmol/L (3.5-5.1) 3.6 mmol/L (3.5-5.1) Magnesium Level 1.7 mg/dL (1.8-2.4) 1.6 mg/dL (1.8-2.4) Glucose (Fingerstick) 152 mg/dL (70-99) White Blood Count 10.5 x10^3/uL (4.0-11.0) Red Blood Count 3.09 x10^6/uL (4.30-5.70) Hemoglobin 9.0 g/dL (13.0-17.5) Hematocrit 26.7 % (39.0-53.0) Mean Corpuscular Volume 86 fL (79-100) Mean Corpuscular Hemoglobin 29 pg (25-35) Mean Corpuscular Hemoglobin Concent 34 g/dL (31-37) Red Cell Distribution Width 14.6 % (11.5-14.5) Platelet Count 221 x10^3/uL (140-400) Neutrophils (%) (Auto) 80 % (31-73) Lymphocytes (%) (Auto) 12 % (24-48) Monocytes (%) (Auto) 7 % (0-9) Eosinophils (%) (Auto) 1 % (0-3) Basophils (%) (Auto) 0 % (0-3) Neutrophils # (Auto) 8.3 x10^3uL (1.8-7.7) Lymphocytes # (Auto) 1.3 x10^3/uL (1.0-4.8) Monocytes # (Auto) 0.8 x10^3/uL (0.0-1.1) Eosinophils # (Auto) 0.1 x10^3/uL (0.0-0.7) Basophils # (Auto) 0.0 x10^3/uL (0.0-0.2) Sodium Level 141 mmol/L (136-145) Chloride Level 109 mmol/L (98-107) Carbon Dioxide Level 28 mmol/L (21-32) Anion Gap 4 (6-14) Blood Urea Nitrogen 30 mg/dL (8-26) Creatinine 0.9 mg/dL (0.7-1.3) Estimated GFR (Cockcroft-Gault) 84.4 Glucose Level 132 mg/dL (70-99) Calcium Level 7.9 mg/dL (8.5-10.1) Phosphorus Level 1.9 mg/dL (2.6-4.7) Triglycerides Level 96 mg/dL (0-150) Medications Active Scripts Medications Dose Route/Sig Max Daily Dose Days Date Category [prednisone taper] 06/07/17 Reported Metoprolol Succinate ( Xl ) (Metoprolol Succinate) 100 Mg Tab.er.24h 1 Tab PO DAILY 06/07/17 Reported Lisinopril 10 Mg Tablet 1 Tab PO DAILY 06/07/17 Reported Hydrochlorothiazide Tablet (Hydrochlorothiazide) 50 Mg Tablet 25 Tab PO DAILY 06/07/17 Reported Impression . IMPRESSION: 1. Acute respiratory failure, expected status post exploratory laparotomy. 2. Emergent exploratory laparotomy for perforated viscus. 3. History of alcoholism. 4. Hypertension. 5. Hyperlipidemia. 6. Severe protein malnutrition, present upon admission. 7. Hypokalemia. 8. Acute kidney injury. PREOPERATIVE DIAGNOSIS: Perforated viscus. POSTOPERATIVE DIAGNOSIS: Perforated viscus secondary to perforated sigmoid diverticulitis with fecal spillage. PROCEDURES: 1. Exploratory laparotomy. 2. Sigmoid resection with end colostomy, Eufemia's pouch. Plan . RESP STATUS IS COMPENSATED POST OP MANAGEMENT ANITBX PER ID IS CONNIE AVILA MD Jun 09, 2017 17:41
[2017-06-09 19:30] VITALS: BP 142/86
[2017-06-09] MEDS ORDERED: DEXTROSE 70% IV SCH ×11 (22:00)
[2017-06-09] MEDS ORDERED: [UNRECOGNIZED DRUG - OTHER] IV SCH ×11 (22:00)
[2017-06-09] MEDS ORDERED: TOTAL PARENTERAL NUTRITION IV SCH ×11 (22:00)
[2017-06-09] MEDS ORDERED: AMINO ACIDS IV SCH ×11 (22:00)
[2017-06-09 23:38] VITALS: BP 158/90
[2017-06-10] MEDS: oxyCODONE/APAP 10/325 1 TAB TABLET PO PRN ×5 (02:45→18:37)
[2017-06-10 03:19] VITALS: BP 153/78
[2017-06-10 06:57] LABS: CALCIUM 7.6 mg/dL (8.5-10.1); CREATININE 0.8 mg/dL (0.7-1.3); GFR 96.7; MAGNESIUM 1.5 mg/dL (1.8-2.4); PHOSPHORUS 2.6 mg/dL (2.6-4.7); POTASSIUM 3.4 mmol/L (3.5-5.1)
[2017-06-10 07:00] VITALS: BP 122/89
[2017-06-10] MEDS: POTASSIUM PHOSPHATE,MONOBASIC 500 MG TABLET. PO SCH ×2 (08:35→21:36)
[2017-06-10] MEDS: ENOXAPARIN 40 MG/0.4 ML SYRINGE. SQ SCH (08:36)
[2017-06-10] MEDS: LIDOCAINE (700MG/PATCH) PATCH. TD SCH ×2 (08:36→21:37)
[2017-06-10] MEDS: methylPREDNISolone SOD SUCC PF 125 MG/2 ML VIAL. IV SCH (08:44)
[2017-06-10] MEDS: DICLOFENAC SODIUM 1% TOPICAL GEL 100GM TUBE. TP SCH ×2 (08:44→21:00)
--- NOTE | 2017-06-10 09:21 | PDOC ---
Infectious Disease Note Subjective Subjective pt is feeling good, ROS ROS GEN: Denies fevers, chills, sweats HEENT: Denies blurred vision, sore throat CV: Denies chest pain RESP: Denies shortness of air, cough GI: Denies n/v/d NEURO: Denies confusion, dizziness MSK: Denies weakness, joint pain/swelling Vital Sign Vital Signs Vital Signs Date Time Temp Pulse Resp B/P (MAP) Pulse Ox O2 Delivery O2 Flow Rate FiO2 06/10/17 07:30 95 Room Air 06/10/17 07:00 98.1 61 18 122/89 (100) 98.1 06/10/17 06:28 2.0 Physical Exam PHYSICAL EXAM GENERAL: NAD, Alert HEENT: PERRL, OC/OP NECK: Supple, no JVD, no LN LUNGS: Clear HEART: S1S2, no gallop, no murmur ABD: Soft, NT, no organomegaly, no rebound EXT: No edema, no cyanosis DECK ENGINE OPERATOR: Alert, oriented x 3, no focal neurologic deficit SKIN: No rash IV: ok Labs Lab Laboratory Tests Test 06/10/17 06:10 06/10/17 06:43 Sodium Level 141 mmol/L (136-145) Potassium Level 3.4 mmol/L (3.5-5.1) Chloride Level 108 mmol/L (98-107) Carbon Dioxide Level 27 mmol/L (21-32) Anion Gap 6 (6-14) Blood Urea Nitrogen 24 mg/dL (8-26) Creatinine 0.8 mg/dL (0.7-1.3) Estimated GFR (Cockcroft-Gault) 96.7 Glucose Level 119 mg/dL (70-99) Calcium Level 7.6 mg/dL (8.5-10.1) Phosphorus Level 2.6 mg/dL (2.6-4.7) Magnesium Level 1.5 mg/dL (1.8-2.4) Glucose (Fingerstick) 117 mg/dL (70-99) Micro ANAEROBIC-AEROBIC CULTURE Final Final report ANAEROBIC RES 1 Final Prevotella species Moderate growth Beta lactamase positive. [facility] have confirmed the observations of others who have demonstrated that Prevotella, Porphyromonas and Bacteroides species other than Bacteroides fragilis group are routinely susceptible to Cefoxitin, Chloramphenicol, and Metronidazole and are usually resistant to Penicillin. ANAEROBIC RES 2 Final Prevotella species Moderate growth Beta lactamase positive. Studies at [facility] have confirmed the observations of others who have demonstrated that Prevotella, Porphyromonas and Bacteroides species other than Bacteroides fragilis group are routinely susceptible to Cefoxitin, Chloramphenicol, and Metronidazole and are usually resistant to Penicillin. Second morphology of Prevotella species. AEROBIC CULT Final Final report AEROBIC RES 1 Final Escherichia coli Moderate growth CONTINUED ON NEXT PAGE RUN DATE: 06/09/17 PAGE 2 RUN TIME: 1526 [facility] [address] [place] [address] Kev Montoya M.D., Staffing Assistant SPEC: [id number] PATIENT: GOPI RODRIGUEZ [id number] ( Continued) Procedure Result AEROBIC RES 2 Final Mixed site destinee. Light growth ANTIMICROBIAL SUSCEPTIBILITY Final Comment S = Susceptible; I = Intermediate; R = Resistant P = Positive; N = Negative MICS are expressed in micrograms per mL Antibiotic RSLT#1 RSLT#2 RSLT#3 RSLT#4 Amoxicillin/Clavulanic Acid S Ampicillin R Cefepime S Ceftriaxone S Cefuroxime S Ciprofloxacin R Ertapenem S Gentamicin S Imipenem S Levofloxacin R Piperacillin R Tetracycline S Tobramycin S Trimethoprim/Sulfa S Performed at: [address] [id number] Maintenance Job Titles: Alexia Greer MD, Phone: [phone] END OF REPORT Objective Assessment Perforated viscus with fecal peritonitis Abdominal pain HTN Respiratory failure Chronic back pain Plan Plan of Care cont rocephine and flagyl supportive care JYOTI JIANG MD Jun 10, 2017 09:21
[2017-06-10] MEDS ORDERED: POTASSIUM CHLORIDE 20 MEQ TABLET.ER. PO ONE (09:30)
[2017-06-10] MEDS ORDERED: MAGNESIUM SULFATE 2GM 50 ML IV ONE (10:00)
[2017-06-10] MEDS: TPN PER PHARMACY MC PRN ×2 (10:41→11:26)
--- NOTE | 2017-06-10 10:53 | PDOC ---
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 yet TOlerating full liquid fine SOme low elytes today - low K, low mag despite iV replacement yesterday Gets up to chair without help PLAN Activity Adlib PT.OT Replace 2 gms IV mag today STart Kcl daily 20, PO kcl 40 now Dw Diet per gS WIll stay here over weekend COnt tpn Vitals Vitals Vital Signs Date Time Temp Pulse Resp B/P (MAP) Pulse Ox O2 Delivery O2 Flow Rate FiO2 06/10/17 10:32 95 Room Air 06/10/17 07:00 98.1 61 18 122/89 (100) 98.1 06/10/17 06:28 2.0 Physical Exam Physical Exam General: Alert, Oriented X3, Cooperative, No acute distress Heart: Regular rate, Normal S1, Normal S2, No murmurs Lungs: Clear Abdomen: Soft, Other (stoma pink, drains in place, serous) Extremities: No edema, Normal pulses Skin: No breakdown Labs LABS Laboratory Tests Test 06/10/17 06:10 06/10/17 06:43 Sodium Level 141 mmol/L (136-145) Potassium Level 3.4 mmol/L (3.5-5.1) Chloride Level 108 mmol/L (98-107) Carbon Dioxide Level 27 mmol/L (21-32) Anion Gap 6 (6-14) Blood Urea Nitrogen 24 mg/dL (8-26) Creatinine 0.8 mg/dL (0.7-1.3) Estimated GFR (Cockcroft-Gault) 96.7 Glucose Level 119 mg/dL (70-99) Calcium Level 7.6 mg/dL (8.5-10.1) Phosphorus Level 2.6 mg/dL (2.6-4.7) Magnesium Level 1.5 mg/dL (1.8-2.4) Glucose (Fingerstick) 117 mg/dL (70-99) Review of Systems Review of Systems abd pain, post op, no nausea, emesis, no flatus, no CP Assessment and Plan Assessmemt and Plan Problems Medical Problems: (1) Abdominal pain Status: Acute (2) Elevated brain natriuretic peptide (BNP) level Status: Acute (3) Hypomagnesemia Status: Acute (4) Perforated abdominal viscus Status: Acute Problems: Comment Review of Relevant I have reviewed the following items ananda (where applicable) has been applied. Labs Laboratory Tests Test 06/08/17 14:27 06/08/17 23:00 06/09/17 05:29 06/09/17 06:00 Glucose (Fingerstick) 169 mg/dL (70-99) 152 mg/dL (70-99) Potassium Level 4.2 mmol/L (3.5-5.1) 3.6 mmol/L (3.5-5.1) Magnesium Level 1.7 mg/dL (1.8-2.4) 1.6 mg/dL (1.8-2.4) White Blood Count 10.5 x10^3/uL (4.0-11.0) Red Blood Count 3.09 x10^6/uL (4.30-5.70) Hemoglobin 9.0 g/dL (13.0-17.5) Hematocrit 26.7 % (39.0-53.0) Mean Corpuscular Volume 86 fL (79-100) Mean Corpuscular Hemoglobin 29 pg (25-35) Mean Corpuscular Hemoglobin Concent 34 g/dL (31-37) Red Cell Distribution Width 14.6 % (11.5-14.5) Platelet Count 221 x10^3/uL (140-400) Neutrophils (%) (Auto) 80 % (31-73) Lymphocytes (%) (Auto) 12 % (24-48) Monocytes (%) (Auto) 7 % (0-9) Eosinophils (%) (Auto) 1 % (0-3) Basophils (%) (Auto) 0 % (0-3) Neutrophils # (Auto) 8.3 x10^3uL (1.8-7.7) Lymphocytes # (Auto) 1.3 x10^3/uL (1.0-4.8) Monocytes # (Auto) 0.8 x10^3/uL (0.0-1.1) Eosinophils # (Auto) 0.1 x10^3/uL (0.0-0.7) Basophils # (Auto) 0.0 x10^3/uL (0.0-0.2) Sodium Level 141 mmol/L (136-145) Chloride Level 109 mmol/L (98-107) Carbon Dioxide Level 28 mmol/L (21-32) Anion Gap 4 (6-14) Blood Urea Nitrogen 30 mg/dL (8-26) Creatinine 0.9 mg/dL (0.7-1.3) Estimated GFR (Cockcroft-Gault) 84.4 Glucose Level 132 mg/dL (70-99) Calcium Level 7.9 mg/dL (8.5-10.1) Phosphorus Level 1.9 mg/dL (2.6-4.7) Triglycerides Level 96 mg/dL (0-150) Test 06/10/17 06:10 06/10/17 06:43 Sodium Level 141 mmol/L (136-145) Potassium Level 3.4 mmol/L (3.5-5.1) Chloride Level 108 mmol/L (98-107) Carbon Dioxide Level 27 mmol/L (21-32) Anion Gap 6 (6-14) Blood Urea Nitrogen 24 mg/dL (8-26) Creatinine 0.8 mg/dL (0.7-1.3) Estimated GFR (Cockcroft-Gault) 96.7 Glucose Level 119 mg/dL (70-99) Calcium Level 7.6 mg/dL (8.5-10.1) Phosphorus Level 2.6 mg/dL (2.6-4.7) Magnesium Level 1.5 mg/dL (1.8-2.4) Glucose (Fingerstick) 117 mg/dL (70-99) Laboratory Tests Test 06/10/17 06:10 06/10/17 06:43 Sodium Level 141 mmol/L (136-145) Potassium Level 3.4 mmol/L (3.5-5.1) Chloride Level 108 mmol/L (98-107) Carbon Dioxide Level 27 mmol/L (21-32) Anion Gap 6 (6-14) Blood Urea Nitrogen 24 mg/dL (8-26) Creatinine 0.8 mg/dL (0.7-1.3) Estimated GFR (Cockcroft-Gault) 96.7 Glucose Level 119 mg/dL (70-99) Calcium Level 7.6 mg/dL (8.5-10.1) Phosphorus Level 2.6 mg/dL (2.6-4.7) Magnesium Level 1.5 mg/dL (1.8-2.4) Glucose (Fingerstick) 117 mg/dL (70-99) Microbiology 06/06/17 Anaerobic/Aerobic Culture - Final, Complete 06/06/17 Anaerobic Culture Result 1 (AISSATOU) - Final, Complete 06/06/17 Anaerobic Culture Result 2 (AISSATOU) - Final, Complete 06/06/17 Aerobic Culture - Final, Complete 06/06/17 Aerobic Culture Result 1 (AISSATOU) - Final, Complete 06/06/17 Aerobic Culture Result 2 (AISSATOU) - Final, Complete 06/06/17 Antimicrobic Susceptibility - Final, Complete Medications Current Medications Sodium Chloride 1,000 ml @ 1,000 mls/hr 1X ONCE IV Last administered on 08:22; Start 06/06/17 at 08:30; Stop 06/06/17 at 09:29; Status DC Ondansetron HCl (Zofran) 8 mg 1X ONCE IV Last administered on 06/06/17 08:23 ; Start 06/06/17 at 08:30; Stop 06/06/17 at 08:31; Status DC Morphine Sulfate 5 mg 1X ONCE IV Last administered on 06/06/17 08:29; Start 06/06/17 at 08:30; Stop 06/06/17 at 08:31; Status DC Potassium Chloride (Klor-Con) 40 meq 1X ONCE PO Last administered on 09:31; Start 06/06/17 at 08:30; Stop 06/06/17 at 08:31; Status DC Potassium Chloride/Sodium Chloride 1,000 ml @ 250 mls/hr 1X ONCE IV Last administered on 06/06/17 09:36; Start 06/06/17 at 08:30; Stop 06/06/17 at 12:29 ; Status DC Iohexol (Omnipaque 300 Mg/ml) 60 ml 1X ONCE IV Last administered on 06/06/17 08:51; Start 06/06/17 at 08:45; Stop 06/06/17 at 08:46; Status DC Magnesium Oxide (Magnesium Oxide) 800 mg 1X STAT PO Last administered on 10/9/ 17at 09:31; Start 06/06/17 at 08:37; Stop 06/06/17 at 08:40; Status DC Info (Do NOT chart on this entry -- for MONITORING) 1 each PRN DAILY PRN MC SEE COMMENTS; Start 06/06/17 at 08:45; Stop 06/08/17 at 08:44; Status DC Metronidazole 100 ml @ 100 mls/hr 1X ONCE IV Last administered on 06/06/17 10:00; Start 06/06/17 at 09:30; Stop 06/06/17 at 10:29; Status DC Levofloxacin/ Dextrose (Levaquin Per Pharmacy) 1 each PRN DAILY PRN MC SEE COMMENTS; Start 06/06/17 at 09:30; Stop 06/08/17 at 09:20; Status DC Levofloxacin/ Dextrose 100 ml @ 100 mls/hr 1X ONCE IV ; Start 06/06/17 at 09: 30; Stop 06/06/17 at 10:29; Status DC Levofloxacin/ Dextrose 100 ml @ 100 mls/hr Q24H IV Last administered on 11:36; Start 06/07/17 at 10:00; Stop 06/08/17 at 08:03; Status DC Rocuronium Jackson (Zemuron) 100 mg STK-MED ONCE .ROUTE ; Start 06/06/17 at 10: 28; Stop 06/06/17 at 10:29; Status DC Fentanyl Citrate (Fentanyl 5ml Vial) 250 mcg STK-MED ONCE .ROUTE ; Start at 10:28; Stop 06/06/17 at 10:29; Status DC Propofol 20 ml @ As Directed STK-MED ONCE IV ; Start 06/06/17 at 10:32; Stop at 10:33; Status DC Lidocaine HCl (Lidocaine Pf 2% Vial) 5 ml STK-MED ONCE .ROUTE ; Start 06/06/17 at 10:32; Stop 06/06/17 at 10:33; Status DC Ondansetron HCl (Zofran) 4 mg STK-MED ONCE .ROUTE ; Start 06/06/17 at 10:33; Stop 06/06/17 at 10:34; Status DC Dexamethasone Sodium Phosphate (Decadron) 20 mg STK-MED ONCE .ROUTE ; Start 06/06/17 at 10:33; Stop 06/06/17 at 10:34; Status DC Multivitamins 10 ml/Folic Acid 1 mg/Thiamine HCl 100 mg/Ringer's Solution 1, 011.2 ml @ 1,000 mls/ hr 1X ONCE IV ; Start 06/06/17 at 11:30; Stop 06/06/17 at 12:30; Status DC Fentanyl Citrate (Fentanyl 2ml Vial) 25 mcg PRN Q5MIN PRN IV MILD PAIN; Start 06/06/17 at 11:45; Stop 06/07/17 at 11:44; Status DC Fentanyl Citrate (Fentanyl 2ml Vial) 50 mcg PRN Q5MIN PRN IV MODERATE PAIN Last administered on 06/06/17t 17:24; Start 06/06/17 at 11:45; Stop 06/07/17 at 11:44; Status DC Morphine Sulfate 1 mg PRN Q10MIN PRN IV SEVERE PAIN Last administered on t 15:38; Start 06/06/17 at 11:45; Stop 06/07/17 at 11:44; Status DC Ringer's Solution 1,000 ml @ 30 mls/hr Q24H IV ; Start 06/06/17 at 11:39; Stop 06/06/17 at 23:38; Status DC Lidocaine HCl (Xylocaine-Mpf 1% Vial) 2 ml 1X PRN PRN ID IV START; Start at 11:45; Stop 06/07/17 at 11:44; Status DC Hydromorphone HCl (Dilaudid) 0.5 mg PRN Q10MIN PRN IV SEV PAIN, Second choice; Start 06/06/17 at 11:45; Stop 06/07/17 at 11:44; Status DC Prochlorperazine Edisylate (Compazine) 5 mg PACU PRN PRN IV NAUSEA, MRX1; Start 06/06/17 at 11:45; Stop 06/07/17 at 11:44; Status DC Phenylephrine HCl (Pedro-Synephrine Inj) 10 mg STK-MED ONCE .ROUTE ; Start at 11:58; Stop 06/06/17 at 11:59; Status DC Sodium Chloride (Sodium Chloride) 50 ml STK-MED ONCE IJ ; Start 06/06/17 at 11: 58; Stop 06/06/17 at 11:59; Status DC Sevoflurane (Ultane) 90 ml STK-MED ONCE IH ; Start 06/06/17 at 13:52; Stop 06/06 at 13:53; Status DC Neostigmine Methylsulfate 5 mg STK-MED ONCE .ROUTE ; Start 06/06/17 at 13:52; Stop 06/06/17 at 13:53; Status DC Glycopyrrolate (Robinul) 1 mg STK-MED ONCE .ROUTE ; Start 06/06/17 at 13:52; Stop 06/06/17 at 13:53; Status DC Fentanyl Citrate (Fentanyl 2ml Vial) 100 mcg STK-MED ONCE .ROUTE ; Start at 14:18; Stop 06/06/17 at 14:19; Status DC Diphenhydramine HCl (Benadryl) 25 mg PRN Q6HRS PRN IV ITCHING; Start 06/06/17 at 14:30 Enoxaparin Sodium (Lovenox 40mg Syringe) 40 mg Q24H SQ Last administered on t 15:00; Start 06/06/17 at 15:00; Stop 06/06/17 at 15:41; Status DC Sodium Chloride (Normal Saline Flush) 3 ml QSHIFT PRN IV AFTER MEDS AND BLOOD DRAWS; Start 06/06/17 at 14:30 Potassium Chloride/Sodium Chloride 1,000 ml @ 100 mls/hr Q10H IV Last administered on 06/07/17 20:00; Start 06/06/17 at 15:00; Stop 06/08/17 at 09: 20; Status DC Hydromorphone HCl 30 ml @ 0 mls/hr CONT PRN PRN IV PROTOCOL; Start 06/06/17 at 14:30; Stop 06/06/17 at 17:30; Status DC Ondansetron HCl (Zofran) 4 mg PRN Q6HRS PRN IV NAUESA, 1ST CHOICE; Start at 14:30 Epinephrine (S2 Racepinephrine) 0.5 ml STK-MED ONCE .ROUTE ; Start 06/06/17 at 14:35; Stop 06/06/17 at 14:36; Status DC Propofol 50 ml @ As Directed STK-MED ONCE IV ; Start 06/06/17 at 14:38; Stop at 14:39; Status DC Succinylcholine Chloride (Anectine) 200 mg STK-MED ONCE .ROUTE ; Start 06/06/17 at 14:40; Stop 06/06/17 at 14:41; Status DC Epinephrine (S2 Racepinephrine) 0.5 ml 1X ONCE NEB Last administered on 14:43; Start 06/06/17 at 14:36; Stop 06/06/17 at 14:43; Status DC Midazolam HCl (Versed) 2 mg STK-MED ONCE .ROUTE ; Start 06/06/17 at 14:48; Stop 06/06/17 at 14:49; Status DC Propofol 100 ml @ 0 mls/hr CONT PRN IV SEE I/O RECORD; Start 06/06/17 at 15:15 ; Stop 06/08/17 at 09:20; Status DC Propofol 50 ml @ As Directed STK-MED ONCE IV ; Start 06/06/17 at 15:03; Stop at 15:04; Status DC Dexamethasone Sodium Phosphate (Decadron) 12 mg 1X ONCE IV Last administered on 06/06/17 15:09; Start 06/06/17 at 15:00; Stop 06/06/17 at 15:06; Status DC Dexamethasone Sodium Phosphate (Decadron) 4 mg STK-MED ONCE .ROUTE ; Start 06/06 at 15:05; Stop 06/06/17 at 15:06; Status DC Propofol 50 ml @ 0 mls/hr 1X ONCE IV Last administered on 06/06/17 15:02; Start 06/06/17 at 15:15; Stop 06/06/17 at 15:16; Status DC Succinylcholine Chloride (Anectine) 200 mg 1X ONCE IV ; Start 06/06/17 at 15:15 ; Stop 06/06/17 at 15:16; Status DC Midazolam HCl (Versed) 2 mg 1X ONCE IV ; Start 06/06/17 at 15:15; Stop at 15:16; Status DC Cellulose 1 each STK-MED ONCE .ROUTE Last administered on 06/06/17 13:35; Start 06/06/17 at 14:19; Stop 06/06/17 at 15:20; Status DC Enoxaparin Sodium (Lovenox 40mg Syringe) 40 mg Q24H SQ Last administered on 08:36; Start 06/07/17 at 09:00 Metronidazole 100 ml @ 100 mls/hr Q12HR IV Last administered on 06/10/17 08: 35; Start 06/06/17 at 21:00 Multivitamins 10 ml/Folic Acid 1 mg/Thiamine HCl 100 mg/Dextrose/ Lactated Ringer's 1,011.2 ml @ 100 mls/ hr DAILY IV Last administered on 06/07/17 09: 21; Start 06/07/17 at 09:00; Stop 06/08/17 at 08:06; Status DC Lorazepam (Ativan) 2 mg PRN Q4HRS PRN IV ANXIETY / AGITATION; Start 06/06/17 at 15:45 Famotidine (Pepcid) 20 mg BID IVP Last administered on 06/08/17 11:18; Start 06/06/17 at 21:00; Stop 06/09/17 at 07:53; Status DC Morphine Sulfate 2 mg PRN Q2HR PRN IV PAIN; Start 06/06/17 at 15:45 Morphine Sulfate 4 mg PRN Q2HR PRN IV PAIN; Start 06/06/17 at 15:45 Ondansetron HCl (Zofran) 4 mg PRN Q6HRS PRN IV NAUSEA/VOMITING; Start 06/06/17 at 15:45; Stop 06/06/17 at 15:45; Status DC Fentanyl Citrate 30 ml @ 0 mls/hr CONT PRN IV PROTOCOL Last administered on 02:54; Start 06/06/17 at 17:30; Stop 06/07/17 at 10:39; Status DC Midazolam HCl 100 ml @ 0 mls/hr CONT PRN IV SEE I/O RECORD; Start 06/06/17 at 23:00; Stop 06/08/17 at 09:20; Status DC Sodium Chloride 1,000 ml @ 1,000 mls/hr 1X ONCE IV Last administered on 23:34; Start 06/06/17 at 23:00; Stop 06/06/17 at 23:59; Status DC Magnesium Sulfate/ Dextrose 50 ml @ 25 mls/hr 1X ONCE IV Last administered on 06/07/17 09:28; Start 06/07/17 at 08:15; Stop 06/07/17 at 10:14; Status DC Info 1 each PRN DAILY PRN MC SEE COMMENTS Last administered on 06/10/17 10:41 ; Start 06/07/17 at 09:30 Methylprednisolone Sodium Succinate (SOLU-Medrol 125MG VIAL) 50 mg DAILY IV Last administered on 06/10/17 08:44; Start 06/07/17 at 11:00 Hydromorphone HCl 30 ml @ 0 mls/hr CONT PRN PRN IV PROTOCOL Last administered on 06/07/17 11:16; Start 06/07/17 at 10:45; Stop 06/09/17 at 08:57; Status DC Sodium Chloride 90 meq/Potassium Chloride 50 meq/ Potassium Phosphate 13.6 mmol/ Magnesium Sulfate 10 meq/ Calcium Gluconate 10 meq/ Multivitamins 10 ml/Chromium / Copper/Manganese/ Seleni/Zn 1 ml/ Total Parenteral Nutrition/Amino Acids/ Dextrose/ Fat Emulsion Intravenous 1,512 ml @ 63 mls/hr TPN CONT IV Last administered on 06/07/17 22:04; Start 06/07/17 at 22:00; Stop 06/08/17 at 21 :59; Status DC Influenza Virus Vaccine Quadrival (Fluarix Quad [id number] Syringe) 0.5 ml ONCE ONCE VAX IM Last administered on 06/08/17 13:23; Start 06/07/17 at 16:15; Stop 06/07/17 at 16:35; Status DC Pneumococcal Polyvalent Vaccine (Do NOT chart on this placeholder) 1 each PRN 1X PRN MC SEE COMMENTS; Start 06/07/17 at 16:45; Status UNV Pneumococcal Polyvalent Vaccine (Pneumovax 23) 0.5 ml ONCE ONCE VAX IM Last administered on 06/08/17 13:25; Start 06/07/17 at 17:00; Stop 06/07/17 at 17 :01; Status DC Ceftriaxone Sodium 1 gm/ Sodium Chloride 50 ml @ 100 mls/hr Q24H IV Last administered on 06/10/17 08:35; Start 06/08/17 at 09:00 Sodium Phosphate 20 mmol/Dextrose 256.6667 ml @ 64.167 m... 1X ONCE IV Last administered on 06/08/17 08:58; Start 06/08/17 at 09:00; Stop 06/08/17 at 12 :59; Status DC Multi-Ingred Cream/Lotion/Oil/ Oint (Artificial Tears Eye Oint) 1 juvenal PRN Q1HR PRN OU DRY EYE; Start 06/08/17 at 09:15 Sodium Chloride 90 meq/Potassium Chloride 40 meq/ Potassium Phosphate 17 mmol/ Magnesium Sulfate 10 meq/Calcium Gluconate 10 meq/ Multivitamins 10 ml/Chromium / Copper/Manganese/ Seleni/Zn 1 ml/ Total Parenteral Nutrition/Amino Acids/ Dextrose/ Fat Emulsion Intravenous 1,512 ml @ 63 mls/hr TPN CONT IV Last administered on 06/08/17 22:42; Start 06/08/17 at 22:00; Stop 06/09/17 at 21 :59; Status DC Diclofenac Sodium (Voltaren) 1 juvenal BID TP Last administered on 06/09/17 09:30 ; Start 06/08/17 at 21:00 Oxycodone/ Acetaminophen (Percocet 10/325) 1 tab PRN Q4HRS PRN PO pain Last administered on 06/10/17 10:32; Start 06/09/17 at 08:00 Magnesium Sulfate/ Dextrose 50 ml @ 25 mls/hr 1X ONCE IV Last administered on 06/09/17 09:31; Start 06/09/17 at 08:00; Stop 06/09/17 at 09:59; Status DC Potassium Phosphate (K-Phos Original) 500 mg BID PO Last administered on 08:35; Start 06/09/17 at 09:00 Lidocaine (Lidoderm) 1 patch DAILY TD Last administered on 06/09/17 09:36; Start 06/09/17 at 09:00 Potassium Phosphate 13.6 mmol/Sodium Chloride 104.5333 ml @ 52.267 m... 1X ONCE IV Last administered on 06/09/17 13:51; Start 06/09/17 at 13:30; Stop 06/09/17 at 15:29; Status DC Sodium Chloride 40 meq/Sodium Acetate 50 meq/ Potassium Chloride 40 meq/ Potassium Phosphate 20 mmol/ Magnesium Sulfate 15 meq/Calcium Gluconate 10 meq/ Multivitamins 10 ml/Chromium/ Copper/Manganese/ Seleni/Zn 1 ml/ Total Parenteral Nutrition/Amino Acids/Dextrose/ Fat Emulsion Intravenous 1,512 ml @ 63 mls/hr TPN CONT IV Last administered on 06/09/17 22:11; Start 06/09/17 at 22:00; Stop 06/10/17 at 21:59 Potassium Chloride (Klor-Con) 40 meq 1X ONCE PO Last administered on 10:40; Start 06/10/17 at 09:30; Stop 06/10/17 at 09:31; Status DC Potassium Chloride (Klor-Con) 20 meq DAILYWBKFT PO ; Start 06/11/17 at 08:00 Magnesium Sulfate/ Dextrose 50 ml @ 25 mls/hr 1X ONCE IV Last administered on 06/10/17 10:38; Start 06/10/17 at 10:00; Stop 06/10/17 at 11:59 Sodium Chloride 40 meq/Sodium Acetate 50 meq/ Potassium Acetate 60 meq/ Potassium Phosphate 18 mmol/ Magnesium Sulfate 18 meq/Calcium Gluconate 10 meq/ Multivitamins 10 ml/Chromium/ Copper/Manganese/ Seleni/Zn 1 ml/ Total Parenteral Nutrition/Amino Acids/Dextrose/ Fat Emulsion Intravenous 1,512 ml @ 63 mls/hr TPN CONT IV ; Start 06/10/17 at 22:00; Stop 06/11/17 at 21:59 Active Scripts Active Reported [prednisone taper] Metoprolol Succinate ( Xl ) (Metoprolol Succinate) 100 Mg Tab.er.24h 1 Tab PO DAILY Lisinopril 10 Mg Tablet 1 Tab PO DAILY Hydrochlorothiazide Tablet (Hydrochlorothiazide) 50 Mg Tablet 25 Tab PO DAILY Vitals/I & O Vital Sign - Last 24 Hours 06/09/17 06/09/17 06/09/17 06/09/17 11:00 11:07 15:00 17:00 Temp 98.6 98.8 98.6 98.8 Pulse 68 65 Resp 18 18 B/P (MAP) 147/77 (100) 149/79 (102) Pulse Ox 93 93 94 94 O2 Delivery Room Air Room Air Room Air Room Air O2 Flow Rate 2.0 2.0 06/09/17 06/09/17 06/09/17 06/09/17 18:00 19:30 20:00 22:09 Temp 98.7 98.7 Pulse 64 Resp 16 16 B/P (MAP) 142/86 (104) Pulse Ox 94 94 O2 Delivery Room Air Room Air Room Air O2 Flow Rate 2.0 06/09/17 06/10/17 06/10/17 06/10/17 23:38 02:45 03:19 03:45 Temp 97.7 98.1 97.7 98.1 Pulse 66 60 Resp 18 16 18 16 B/P (MAP) 158/90 (112) 153/78 (103) Pulse Ox 94 94 95 O2 Delivery Room Air Room Air Room Air 06/10/17 06/10/17 06/10/17 06/10/17 06:28 07:00 07:30 10:32 Temp 98.1 98.1 Pulse 61 Resp 16 18 B/P (MAP) 122/89 (100) Pulse Ox 95 95 95 95 O2 Delivery Room Air Room Air Room Air Room Air O2 Flow Rate 2.0 Intake and Output 06/10/17 06/10/17 06/11/17 15:00 23:00 07:00 Output Total 400 ml Balance -400 ml TAMMY LEPE MD Jun 10, 2017 10:53
[2017-06-10 11:00] VITALS: BP 137/78
--- NOTE | 2017-06-10 13:20 | PDOC ---
SURGICAL PROGRESS NOTE Subjective tolerating diet pain managed ambulating Vital Signs Vital Signs Date Time Temp Pulse Resp B/P (MAP) Pulse Ox O2 Delivery O2 Flow Rate FiO2 06/10/17 11:48 95 Room Air 06/10/17 11:00 98.2 71 18 137/78 (97) 98.2 06/10/17 06:28 2.0 I&O Intake and Output 06/11/17 07:00 Output Total 400 ml Balance -400 ml Output Urine Total 400 ml General: Alert, Oriented X3, Cooperative, No acute distress Abdomen: Soft, Other (drains serous, incision c/d/i, stoma pink, no stool) Labs Laboratory Tests Test 06/08/17 14:27 06/08/17 23:00 06/09/17 05:29 06/09/17 06:00 Glucose (Fingerstick) 169 mg/dL (70-99) 152 mg/dL (70-99) Potassium Level 4.2 mmol/L (3.5-5.1) 3.6 mmol/L (3.5-5.1) Magnesium Level 1.7 mg/dL (1.8-2.4) 1.6 mg/dL (1.8-2.4) White Blood Count 10.5 x10^3/uL (4.0-11.0) Red Blood Count 3.09 x10^6/uL (4.30-5.70) Hemoglobin 9.0 g/dL (13.0-17.5) Hematocrit 26.7 % (39.0-53.0) Mean Corpuscular Volume 86 fL (79-100) Mean Corpuscular Hemoglobin 29 pg (25-35) Mean Corpuscular Hemoglobin Concent 34 g/dL (31-37) Red Cell Distribution Width 14.6 % (11.5-14.5) Platelet Count 221 x10^3/uL (140-400) Neutrophils (%) (Auto) 80 % (31-73) Lymphocytes (%) (Auto) 12 % (24-48) Monocytes (%) (Auto) 7 % (0-9) Eosinophils (%) (Auto) 1 % (0-3) Basophils (%) (Auto) 0 % (0-3) Neutrophils # (Auto) 8.3 x10^3uL (1.8-7.7) Lymphocytes # (Auto) 1.3 x10^3/uL (1.0-4.8) Monocytes # (Auto) 0.8 x10^3/uL (0.0-1.1) Eosinophils # (Auto) 0.1 x10^3/uL (0.0-0.7) Basophils # (Auto) 0.0 x10^3/uL (0.0-0.2) Sodium Level 141 mmol/L (136-145) Chloride Level 109 mmol/L (98-107) Carbon Dioxide Level 28 mmol/L (21-32) Anion Gap 4 (6-14) Blood Urea Nitrogen 30 mg/dL (8-26) Creatinine 0.9 mg/dL (0.7-1.3) Estimated GFR (Cockcroft-Gault) 84.4 Glucose Level 132 mg/dL (70-99) Calcium Level 7.9 mg/dL (8.5-10.1) Phosphorus Level 1.9 mg/dL (2.6-4.7) Triglycerides Level 96 mg/dL (0-150) Test 06/10/17 06:10 06/10/17 06:43 06/10/17 11:39 Sodium Level 141 mmol/L (136-145) Potassium Level 3.4 mmol/L (3.5-5.1) Chloride Level 108 mmol/L (98-107) Carbon Dioxide Level 27 mmol/L (21-32) Anion Gap 6 (6-14) Blood Urea Nitrogen 24 mg/dL (8-26) Creatinine 0.8 mg/dL (0.7-1.3) Estimated GFR (Cockcroft-Gault) 96.7 Glucose Level 119 mg/dL (70-99) Calcium Level 7.6 mg/dL (8.5-10.1) Phosphorus Level 2.6 mg/dL (2.6-4.7) Magnesium Level 1.5 mg/dL (1.8-2.4) Glucose (Fingerstick) 117 mg/dL (70-99) 168 mg/dL (70-99) Laboratory Tests Test 06/10/17 06:10 06/10/17 06:43 06/10/17 11:39 Sodium Level 141 mmol/L (136-145) Potassium Level 3.4 mmol/L (3.5-5.1) Chloride Level 108 mmol/L (98-107) Carbon Dioxide Level 27 mmol/L (21-32) Anion Gap 6 (6-14) Blood Urea Nitrogen 24 mg/dL (8-26) Creatinine 0.8 mg/dL (0.7-1.3) Estimated GFR (Cockcroft-Gault) 96.7 Glucose Level 119 mg/dL (70-99) Calcium Level 7.6 mg/dL (8.5-10.1) Phosphorus Level 2.6 mg/dL (2.6-4.7) Magnesium Level 1.5 mg/dL (1.8-2.4) Glucose (Fingerstick) 117 mg/dL (70-99) 168 mg/dL (70-99) Problem List Problems Medical Problems: (1) Abdominal pain Status: Acute (2) Elevated brain natriuretic peptide (BNP) level Status: Acute (3) Hypomagnesemia Status: Acute (4) Perforated abdominal viscus Status: Acute Assessment/Plan s/p resection await bowel function Problems: MINA LYNCH CORRESPONDENCE CLERK Jun 10, 2017 13:20
[2017-06-10 15:00] VITALS: BP 151/79
--- NOTE | 2017-06-10 15:21 | PDOC ---
PULMONARY PROGRESS NOTES Subjective no sob, cough, no pain, upset about having a colostomy Vitals Vital Signs Date Time Temp Pulse Resp B/P (MAP) Pulse Ox O2 Delivery O2 Flow Rate FiO2 06/10/17 14:31 95 Room Air 2.0 06/10/17 11:00 98.2 71 18 137/78 (97) 98.2 ROS: No Nausea, No Chest Pain, No Increase Cough General: Alert HEENT: Neck ROM, Other (nc at perrl ) Lungs: Clear Cardiovascular: S1, S2 Abdomen: Soft, Non-tender, Other Neuro Exam: Alert Extremities: No Edema Skin: Warm Labs Laboratory Tests Test 06/08/17 23:00 06/09/17 05:29 06/09/17 06:00 06/10/17 06:10 Potassium Level 4.2 mmol/L (3.5-5.1) 3.6 mmol/L (3.5-5.1) 3.4 mmol/L (3.5-5.1) Magnesium Level 1.7 mg/dL (1.8-2.4) 1.6 mg/dL (1.8-2.4) 1.5 mg/dL (1.8-2.4) Glucose (Fingerstick) 152 mg/dL (70-99) White Blood Count 10.5 x10^3/uL (4.0-11.0) Red Blood Count 3.09 x10^6/uL (4.30-5.70) Hemoglobin 9.0 g/dL (13.0-17.5) Hematocrit 26.7 % (39.0-53.0) Mean Corpuscular Volume 86 fL (79-100) Mean Corpuscular Hemoglobin 29 pg (25-35) Mean Corpuscular Hemoglobin Concent 34 g/dL (31-37) Red Cell Distribution Width 14.6 % (11.5-14.5) Platelet Count 221 x10^3/uL (140-400) Neutrophils (%) (Auto) 80 % (31-73) Lymphocytes (%) (Auto) 12 % (24-48) Monocytes (%) (Auto) 7 % (0-9) Eosinophils (%) (Auto) 1 % (0-3) Basophils (%) (Auto) 0 % (0-3) Neutrophils # (Auto) 8.3 x10^3uL (1.8-7.7) Lymphocytes # (Auto) 1.3 x10^3/uL (1.0-4.8) Monocytes # (Auto) 0.8 x10^3/uL (0.0-1.1) Eosinophils # (Auto) 0.1 x10^3/uL (0.0-0.7) Basophils # (Auto) 0.0 x10^3/uL (0.0-0.2) Sodium Level 141 mmol/L (136-145) 141 mmol/L (136-145) Chloride Level 109 mmol/L (98-107) 108 mmol/L (98-107) Carbon Dioxide Level 28 mmol/L (21-32) 27 mmol/L (21-32) Anion Gap 4 (6-14) 6 (6-14) Blood Urea Nitrogen 30 mg/dL (8-26) 24 mg/dL (8-26) Creatinine 0.9 mg/dL (0.7-1.3) 0.8 mg/dL (0.7-1.3) Estimated GFR (Cockcroft-Gault) 84.4 96.7 Glucose Level 132 mg/dL (70-99) 119 mg/dL (70-99) Calcium Level 7.9 mg/dL (8.5-10.1) 7.6 mg/dL (8.5-10.1) Phosphorus Level 1.9 mg/dL (2.6-4.7) 2.6 mg/dL (2.6-4.7) Triglycerides Level 96 mg/dL (0-150) Test 06/10/17 06:43 06/10/17 11:39 Glucose (Fingerstick) 117 mg/dL (70-99) 168 mg/dL (70-99) Laboratory Tests Test 06/10/17 06:10 06/10/17 06:43 06/10/17 11:39 Sodium Level 141 mmol/L (136-145) Potassium Level 3.4 mmol/L (3.5-5.1) Chloride Level 108 mmol/L (98-107) Carbon Dioxide Level 27 mmol/L (21-32) Anion Gap 6 (6-14) Blood Urea Nitrogen 24 mg/dL (8-26) Creatinine 0.8 mg/dL (0.7-1.3) Estimated GFR (Cockcroft-Gault) 96.7 Glucose Level 119 mg/dL (70-99) Calcium Level 7.6 mg/dL (8.5-10.1) Phosphorus Level 2.6 mg/dL (2.6-4.7) Magnesium Level 1.5 mg/dL (1.8-2.4) Glucose (Fingerstick) 117 mg/dL (70-99) 168 mg/dL (70-99) Medications Active Scripts Medications Dose Route/Sig Max Daily Dose Days Date Category [prednisone taper] 06/07/17 Reported Metoprolol Succinate ( Xl ) (Metoprolol Succinate) 100 Mg Tab.er.24h 1 Tab PO DAILY 06/07/17 Reported Lisinopril 10 Mg Tablet 1 Tab PO DAILY 06/07/17 Reported Hydrochlorothiazide Tablet (Hydrochlorothiazide) 50 Mg Tablet 25 Tab PO DAILY 06/07/17 Reported Impression . IMPRESSION: 1. Acute respiratory failure, expected status post exploratory laparotomy. 2. Emergent exploratory laparotomy for perforated viscus. 3. History of alcoholism. 4. Hypertension. 5. Hyperlipidemia. 6. Severe protein malnutrition, present upon admission. 7. Hypokalemia. 8. Acute kidney injury. PREOPERATIVE DIAGNOSIS: Perforated viscus. POSTOPERATIVE DIAGNOSIS: Perforated viscus secondary to perforated sigmoid diverticulitis with fecal spillage. PROCEDURES: 1. Exploratory laparotomy. 2. Sigmoid resection with end colostomy, Eufemia's pouch. Plan . RESP STATUS IS COMPENSATED POST OP MANAGEMENT ANITBX PER ID IS pt/ot discussed w pt, , rn ALEXIS DANIELS MD Jun 10, 2017 15:21
[2017-06-10 19:00] VITALS: BP 157/86
[2017-06-10] MEDS ORDERED: [UNRECOGNIZED DRUG - OTHER] IV SCH ×11 (22:00)
[2017-06-10] MEDS ORDERED: TOTAL PARENTERAL NUTRITION IV SCH ×11 (22:00)
[2017-06-10] MEDS ORDERED: AMINO ACIDS IV SCH ×11 (22:00)
[2017-06-10] MEDS ORDERED: DEXTROSE 70% IV SCH ×11 (22:00)
[2017-06-10 23:00] VITALS: BP 153/75
[2017-06-11] MEDS: oxyCODONE/APAP 10/325 1 TAB TABLET PO PRN ×6 (00:23→21:42)
[2017-06-11 03:00] VITALS: BP 164/82
[2017-06-11 06:27] LABS: CALCIUM 7.7 mg/dL (8.5-10.1); CREATININE 0.8 mg/dL (0.7-1.3); GFR 96.7; MAGNESIUM 1.7 mg/dL (1.8-2.4); POTASSIUM 3.9 mmol/L (3.5-5.1)
[2017-06-11 07:00] VITALS: BP 169/88
[2017-06-11] MEDS: ENOXAPARIN 40 MG/0.4 ML SYRINGE. SQ SCH (08:31)
[2017-06-11] MEDS: methylPREDNISolone SOD SUCC PF 125 MG/2 ML VIAL. IV SCH (08:33)
[2017-06-11] MEDS: POTASSIUM PHOSPHATE,MONOBASIC 500 MG TABLET. PO SCH ×2 (08:34→21:43)
[2017-06-11] MEDS: POTASSIUM CHLORIDE 20 MEQ TABLET.ER. PO SCH (08:34)
[2017-06-11] MEDS ORDERED: MAGNESIUM SULFATE 4GM 100 ML IV ONE (09:00)
[2017-06-11] MEDS: DICLOFENAC SODIUM 1% TOPICAL GEL 100GM TUBE. TP SCH ×2 (09:00→21:00)
--- NOTE | 2017-06-11 09:14 | PDOC ---
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 Still some abd pain but ok with current pain regimen MAg sulfate 4 gms IV x 1 now Recheck mag and elytes rosemarie Kostas RN Les Vitals Vitals Vital Signs Date Time Temp Pulse Resp B/P (MAP) Pulse Ox O2 Delivery O2 Flow Rate FiO2 06/11/17 08:31 22 Room Air 06/11/17 07:00 98.4 66 169/88 (115) 92 98.4 06/10/17 14:31 2.0 Physical Exam Physical Exam General: Alert, Oriented X3, Cooperative, No acute distress Heart: Regular rate, Normal S1, Normal S2, No murmurs Lungs: Clear Abdomen: Soft, Other (drains serous, incision c/d/i, stoma pink, no stool) Extremities: No edema, Normal pulses Skin: No breakdown Labs LABS Laboratory Tests Test 06/10/17 11:39 06/10/17 16:29 06/10/17 20:38 06/11/17 06:10 Glucose (Fingerstick) 168 mg/dL (70-99) 173 mg/dL (70-99) 162 mg/dL (70-99) Sodium Level 140 mmol/L (136-145) Potassium Level 3.9 mmol/L (3.5-5.1) Chloride Level 107 mmol/L (98-107) Carbon Dioxide Level 28 mmol/L (21-32) Anion Gap 5 (6-14) Blood Urea Nitrogen 20 mg/dL (8-26) Creatinine 0.8 mg/dL (0.7-1.3) Estimated GFR (Cockcroft-Gault) 96.7 Glucose Level 121 mg/dL (70-99) Calcium Level 7.7 mg/dL (8.5-10.1) Magnesium Level 1.7 mg/dL (1.8-2.4) Test 06/11/17 07:45 Glucose (Fingerstick) 118 mg/dL (70-99) Review of Systems Review of Systems post op abd pain, no nausea, cp, or soa Assessment and Plan Assessmemt and Plan Problems Medical Problems: (1) Abdominal pain Status: Acute (2) Elevated brain natriuretic peptide (BNP) level Status: Acute (3) Hypomagnesemia Status: Acute (4) Perforated abdominal viscus Status: Acute Problems: Comment Review of Relevant I have reviewed the following items ananda (where applicable) has been applied. Labs Laboratory Tests Test 06/10/17 06:10 06/10/17 06:43 06/10/17 11:39 06/10/17 16:29 Sodium Level 141 mmol/L (136-145) Potassium Level 3.4 mmol/L (3.5-5.1) Chloride Level 108 mmol/L (98-107) Carbon Dioxide Level 27 mmol/L (21-32) Anion Gap 6 (6-14) Blood Urea Nitrogen 24 mg/dL (8-26) Creatinine 0.8 mg/dL (0.7-1.3) Estimated GFR (Cockcroft-Gault) 96.7 Glucose Level 119 mg/dL (70-99) Calcium Level 7.6 mg/dL (8.5-10.1) Phosphorus Level 2.6 mg/dL (2.6-4.7) Magnesium Level 1.5 mg/dL (1.8-2.4) Glucose (Fingerstick) 117 mg/dL (70-99) 168 mg/dL (70-99) 173 mg/dL (70-99) Test 06/10/17 20:38 06/11/17 06:10 06/11/17 07:45 Glucose (Fingerstick) 162 mg/dL (70-99) 118 mg/dL (70-99) Sodium Level 140 mmol/L (136-145) Potassium Level 3.9 mmol/L (3.5-5.1) Chloride Level 107 mmol/L (98-107) Carbon Dioxide Level 28 mmol/L (21-32) Anion Gap 5 (6-14) Blood Urea Nitrogen 20 mg/dL (8-26) Creatinine 0.8 mg/dL (0.7-1.3) Estimated GFR (Cockcroft-Gault) 96.7 Glucose Level 121 mg/dL (70-99) Calcium Level 7.7 mg/dL (8.5-10.1) Magnesium Level 1.7 mg/dL (1.8-2.4) Laboratory Tests Test 06/10/17 11:39 06/10/17 16:29 06/10/17 20:38 06/11/17 06:10 Glucose (Fingerstick) 168 mg/dL (70-99) 173 mg/dL (70-99) 162 mg/dL (70-99) Sodium Level 140 mmol/L (136-145) Potassium Level 3.9 mmol/L (3.5-5.1) Chloride Level 107 mmol/L (98-107) Carbon Dioxide Level 28 mmol/L (21-32) Anion Gap 5 (6-14) Blood Urea Nitrogen 20 mg/dL (8-26) Creatinine 0.8 mg/dL (0.7-1.3) Estimated GFR (Cockcroft-Gault) 96.7 Glucose Level 121 mg/dL (70-99) Calcium Level 7.7 mg/dL (8.5-10.1) Magnesium Level 1.7 mg/dL (1.8-2.4) Test 06/11/17 07:45 Glucose (Fingerstick) 118 mg/dL (70-99) Microbiology 06/06/17 Anaerobic/Aerobic Culture - Final, Complete 06/06/17 Anaerobic Culture Result 1 (AISSATOU) - Final, Complete 06/06/17 Anaerobic Culture Result 2 (AISSATOU) - Final, Complete 06/06/17 Aerobic Culture - Final, Complete 06/06/17 Aerobic Culture Result 1 (AISSATOU) - Final, Complete 06/06/17 Aerobic Culture Result 2 (AISSATOU) - Final, Complete 06/06/17 Antimicrobic Susceptibility - Final, Complete Medications Current Medications Sodium Chloride 1,000 ml @ 1,000 mls/hr 1X ONCE IV Last administered on t 08:22; Start 06/06/17 at 08:30; Stop 06/06/17 at 09:29; Status DC Ondansetron HCl (Zofran) 8 mg 1X ONCE IV Last administered on 06/06/17 08:23 ; Start 06/06/17 at 08:30; Stop 06/06/17 at 08:31; Status DC Morphine Sulfate 5 mg 1X ONCE IV Last administered on 06/06/17 08:29; Start 06/06/17 at 08:30; Stop 06/06/17 at 08:31; Status DC Potassium Chloride (Klor-Con) 40 meq 1X ONCE PO Last administered on 09:31; Start 06/06/17 at 08:30; Stop 06/06/17 at 08:31; Status DC Potassium Chloride/Sodium Chloride 1,000 ml @ 250 mls/hr 1X ONCE IV Last administered on 06/06/17 09:36; Start 06/06/17 at 08:30; Stop 06/06/17 at 12:29 ; Status DC Iohexol (Omnipaque 300 Mg/ml) 60 ml 1X ONCE IV Last administered on 06/06/17 08:51; Start 06/06/17 at 08:45; Stop 06/06/17 at 08:46; Status DC Magnesium Oxide (Magnesium Oxide) 800 mg 1X STAT PO Last administered on 09:31; Start 06/06/17 at 08:37; Stop 06/06/17 at 08:40; Status DC Info (Do NOT chart on this entry -- for MONITORING) 1 each PRN DAILY PRN MC SEE COMMENTS; Start 06/06/17 at 08:45; Stop 06/08/17 at 08:44; Status DC Metronidazole 100 ml @ 100 mls/hr 1X ONCE IV Last administered on 06/06/17 10:00; Start 06/06/17 at 09:30; Stop 06/06/17 at 10:29; Status DC Levofloxacin/ Dextrose (Levaquin Per Pharmacy) 1 each PRN DAILY PRN MC SEE COMMENTS; Start 06/06/17 at 09:30; Stop 06/08/17 at 09:20; Status DC Levofloxacin/ Dextrose 100 ml @ 100 mls/hr 1X ONCE IV ; Start 06/06/17 at 09: 30; Stop 06/06/17 at 10:29; Status DC Levofloxacin/ Dextrose 100 ml @ 100 mls/hr Q24H IV Last administered on 11:36; Start 06/07/17 at 10:00; Stop 06/08/17 at 08:03; Status DC Rocuronium Tolono (Zemuron) 100 mg STK-MED ONCE .ROUTE ; Start 06/06/17 at 10: 28; Stop 06/06/17 at 10:29; Status DC Fentanyl Citrate (Fentanyl 5ml Vial) 250 mcg STK-MED ONCE .ROUTE ; Start at 10:28; Stop 06/06/17 at 10:29; Status DC Propofol 20 ml @ As Directed STK-MED ONCE IV ; Start 06/06/17 at 10:32; Stop at 10:33; Status DC Lidocaine HCl (Lidocaine Pf 2% Vial) 5 ml STK-MED ONCE .ROUTE ; Start 06/06/17 at 10:32; Stop 06/06/17 at 10:33; Status DC Ondansetron HCl (Zofran) 4 mg STK-MED ONCE .ROUTE ; Start 06/06/17 at 10:33; Stop 06/06/17 at 10:34; Status DC Dexamethasone Sodium Phosphate (Decadron) 20 mg STK-MED ONCE .ROUTE ; Start 06/06/17 at 10:33; Stop 06/06/17 at 10:34; Status DC Multivitamins 10 ml/Folic Acid 1 mg/Thiamine HCl 100 mg/Ringer's Solution 1, 011.2 ml @ 1,000 mls/ hr 1X ONCE IV ; Start 06/06/17 at 11:30; Stop 06/06/17 at 12:30; Status DC Fentanyl Citrate (Fentanyl 2ml Vial) 25 mcg PRN Q5MIN PRN IV MILD PAIN; Start 06/06/17 at 11:45; Stop 06/07/17 at 11:44; Status DC Fentanyl Citrate (Fentanyl 2ml Vial) 50 mcg PRN Q5MIN PRN IV MODERATE PAIN Last administered on 06/06/17 17:24; Start 06/06/17 at 11:45; Stop 06/07/17 at 11:44; Status DC Morphine Sulfate 1 mg PRN Q10MIN PRN IV SEVERE PAIN Last administered on 15:38; Start 06/06/17 at 11:45; Stop 06/07/17 at 11:44; Status DC Ringer's Solution 1,000 ml @ 30 mls/hr Q24H IV ; Start 06/06/17 at 11:39; Stop 06/06/17 at 23:38; Status DC Lidocaine HCl (Xylocaine-Mpf 1% Vial) 2 ml 1X PRN PRN ID IV START; Start at 11:45; Stop 06/07/17 at 11:44; Status DC Hydromorphone HCl (Dilaudid) 0.5 mg PRN Q10MIN PRN IV SEV PAIN, Second choice; Start 06/06/17 at 11:45; Stop 06/07/17 at 11:44; Status DC Prochlorperazine Edisylate (Compazine) 5 mg PACU PRN PRN IV NAUSEA, MRX1; Start 06/06/17 at 11:45; Stop 06/07/17 at 11:44; Status DC Phenylephrine HCl (Pedro-Synephrine Inj) 10 mg STK-MED ONCE .ROUTE ; Start at 11:58; Stop 06/06/17 at 11:59; Status DC Sodium Chloride (Sodium Chloride) 50 ml STK-MED ONCE IJ ; Start 06/06/17 at 11: 58; Stop 06/06/17 at 11:59; Status DC Sevoflurane (Ultane) 90 ml STK-MED ONCE IH ; Start 06/06/17 at 13:52; Stop 06/06 at 13:53; Status DC Neostigmine Methylsulfate 5 mg STK-MED ONCE .ROUTE ; Start 06/06/17 at 13:52; Stop 06/06/17 at 13:53; Status DC Glycopyrrolate (Robinul) 1 mg STK-MED ONCE .ROUTE ; Start 06/06/17 at 13:52; Stop 06/06/17 at 13:53; Status DC Fentanyl Citrate (Fentanyl 2ml Vial) 100 mcg STK-MED ONCE .ROUTE ; Start at 14:18; Stop 06/06/17 at 14:19; Status DC Diphenhydramine HCl (Benadryl) 25 mg PRN Q6HRS PRN IV ITCHING; Start 06/06/17 at 14:30 Enoxaparin Sodium (Lovenox 40mg Syringe) 40 mg Q24H SQ Last administered on 15:00; Start 06/06/17 at 15:00; Stop 06/06/17 at 15:41; Status DC Sodium Chloride (Normal Saline Flush) 3 ml QSHIFT PRN IV AFTER MEDS AND BLOOD DRAWS; Start 06/06/17 at 14:30 Potassium Chloride/Sodium Chloride 1,000 ml @ 100 mls/hr Q10H IV Last administered on 06/07/17 20:00; Start 06/06/17 at 15:00; Stop 06/08/17 at 09: 20; Status DC Hydromorphone HCl 30 ml @ 0 mls/hr CONT PRN PRN IV PROTOCOL; Start 06/06/17 at 14:30; Stop 06/06/17 at 17:30; Status DC Ondansetron HCl (Zofran) 4 mg PRN Q6HRS PRN IV NAUESA, 1ST CHOICE; Start at 14:30 Epinephrine (S2 Racepinephrine) 0.5 ml STK-MED ONCE .ROUTE ; Start 06/06/17 at 14:35; Stop 06/06/17 at 14:36; Status DC Propofol 50 ml @ As Directed STK-MED ONCE IV ; Start 06/06/17 at 14:38; Stop at 14:39; Status DC Succinylcholine Chloride (Anectine) 200 mg STK-MED ONCE .ROUTE ; Start 06/06/17 at 14:40; Stop 06/06/17 at 14:41; Status DC Epinephrine (S2 Racepinephrine) 0.5 ml 1X ONCE NEB Last administered on 14:43; Start 06/06/17 at 14:36; Stop 06/06/17 at 14:43; Status DC Midazolam HCl (Versed) 2 mg STK-MED ONCE .ROUTE ; Start 06/06/17 at 14:48; Stop 06/06/17 at 14:49; Status DC Propofol 100 ml @ 0 mls/hr CONT PRN IV SEE I/O RECORD; Start 06/06/17 at 15:15 ; Stop 06/08/17 at 09:20; Status DC Propofol 50 ml @ As Directed STK-MED ONCE IV ; Start 06/06/17 at 15:03; Stop at 15:04; Status DC Dexamethasone Sodium Phosphate (Decadron) 12 mg 1X ONCE IV Last administered on 06/06/17 15:09; Start 06/06/17 at 15:00; Stop 06/06/17 at 15:06; Status DC Dexamethasone Sodium Phosphate (Decadron) 4 mg STK-MED ONCE .ROUTE ; Start 06/06 at 15:05; Stop 06/06/17 at 15:06; Status DC Propofol 50 ml @ 0 mls/hr 1X ONCE IV Last administered on 06/06/17 15:02; Start 06/06/17 at 15:15; Stop 06/06/17 at 15:16; Status DC Succinylcholine Chloride (Anectine) 200 mg 1X ONCE IV ; Start 06/06/17 at 15:15 ; Stop 06/06/17 at 15:16; Status DC Midazolam HCl (Versed) 2 mg 1X ONCE IV ; Start 06/06/17 at 15:15; Stop at 15:16; Status DC Cellulose 1 each STK-MED ONCE .ROUTE Last administered on 06/06/17 13:35; Start 06/06/17 at 14:19; Stop 06/06/17 at 15:20; Status DC Enoxaparin Sodium (Lovenox 40mg Syringe) 40 mg Q24H SQ Last administered on 08:31; Start 06/07/17 at 09:00 Metronidazole 100 ml @ 100 mls/hr Q12HR IV Last administered on 06/10/17 21: 35; Start 06/06/17 at 21:00 Multivitamins 10 ml/Folic Acid 1 mg/Thiamine HCl 100 mg/Dextrose/ Lactated Ringer's 1,011.2 ml @ 100 mls/ hr DAILY IV Last administered on 06/07/17 09: 21; Start 06/07/17 at 09:00; Stop 06/08/17 at 08:06; Status DC Lorazepam (Ativan) 2 mg PRN Q4HRS PRN IV ANXIETY / AGITATION; Start 06/06/17 at 15:45 Famotidine (Pepcid) 20 mg BID IVP Last administered on 06/08/17 11:18; Start 06/06/17 at 21:00; Stop 06/09/17 at 07:53; Status DC Morphine Sulfate 2 mg PRN Q2HR PRN IV PAIN Last administered on 06/10/17 22: 59; Start 06/06/17 at 15:45 Morphine Sulfate 4 mg PRN Q2HR PRN IV PAIN Last administered on 06/11/17 08: 31; Start 06/06/17 at 15:45 Ondansetron HCl (Zofran) 4 mg PRN Q6HRS PRN IV NAUSEA/VOMITING; Start 06/06/17 at 15:45; Stop 06/06/17 at 15:45; Status DC Fentanyl Citrate 30 ml @ 0 mls/hr CONT PRN IV PROTOCOL Last administered on 02:54; Start 06/06/17 at 17:30; Stop 06/07/17 at 10:39; Status DC Midazolam HCl 100 ml @ 0 mls/hr CONT PRN IV SEE I/O RECORD; Start 06/06/17 at 23:00; Stop 06/08/17 at 09:20; Status DC Sodium Chloride 1,000 ml @ 1,000 mls/hr 1X ONCE IV Last administered on 23:34; Start 06/06/17 at 23:00; Stop 06/06/17 at 23:59; Status DC Magnesium Sulfate/ Dextrose 50 ml @ 25 mls/hr 1X ONCE IV Last administered on 06/07/17 09:28; Start 06/07/17 at 08:15; Stop 06/07/17 at 10:14; Status DC Info 1 each PRN DAILY PRN MC SEE COMMENTS Last administered on 06/10/17 11:26 ; Start 06/07/17 at 09:30 Methylprednisolone Sodium Succinate (SOLU-Medrol 125MG VIAL) 50 mg DAILY IV Last administered on 06/11/17 08:33; Start 06/07/17 at 11:00 Hydromorphone HCl 30 ml @ 0 mls/hr CONT PRN PRN IV PROTOCOL Last administered on 06/07/17 11:16; Start 06/07/17 at 10:45; Stop 06/09/17 at 08:57; Status DC Sodium Chloride 90 meq/Potassium Chloride 50 meq/ Potassium Phosphate 13.6 mmol/ Magnesium Sulfate 10 meq/ Calcium Gluconate 10 meq/ Multivitamins 10 ml/Chromium / Copper/Manganese/ Seleni/Zn 1 ml/ Total Parenteral Nutrition/Amino Acids/ Dextrose/ Fat Emulsion Intravenous 1,512 ml @ 63 mls/hr TPN CONT IV Last administered on 06/07/17 22:04; Start 06/07/17 at 22:00; Stop 06/08/17 at 21 :59; Status DC Influenza Virus Vaccine Quadrival (Fluarix Quad 4535-5711 Syringe) 0.5 ml ONCE ONCE VAX IM Last administered on 06/08/17 13:23; Start 06/07/17 at 16:15; Stop 06/07/17 at 16:35; Status DC Pneumococcal Polyvalent Vaccine (Do NOT chart on this placeholder) 1 each PRN 1X PRN MC SEE COMMENTS; Start 06/07/17 at 16:45; Status UNV Pneumococcal Polyvalent Vaccine (Pneumovax 23) 0.5 ml ONCE ONCE VAX IM Last administered on 06/08/17 13:25; Start 06/07/17 at 17:00; Stop 06/07/17 at 17 :01; Status DC Ceftriaxone Sodium 1 gm/ Sodium Chloride 50 ml @ 100 mls/hr Q24H IV Last administered on 06/10/17 08:35; Start 06/08/17 at 09:00 Sodium Phosphate 20 mmol/Dextrose 256.6667 ml @ 64.167 m... 1X ONCE IV Last administered on 06/08/17 08:58; Start 06/08/17 at 09:00; Stop 06/08/17 at 12 :59; Status DC Multi-Ingred Cream/Lotion/Oil/ Oint (Artificial Tears Eye Oint) 1 juvenal PRN Q1HR PRN OU DRY EYE; Start 06/08/17 at 09:15 Sodium Chloride 90 meq/Potassium Chloride 40 meq/ Potassium Phosphate 17 mmol/ Magnesium Sulfate 10 meq/Calcium Gluconate 10 meq/ Multivitamins 10 ml/Chromium / Copper/Manganese/ Seleni/Zn 1 ml/ Total Parenteral Nutrition/Amino Acids/ Dextrose/ Fat Emulsion Intravenous 1,512 ml @ 63 mls/hr TPN CONT IV Last administered on 06/08/17 22:42; Start 06/08/17 at 22:00; Stop 06/09/17 at 21 :59; Status DC Diclofenac Sodium (Voltaren) 1 juvenal BID TP Last administered on 06/09/17 09:30 ; Start 06/08/17 at 21:00 Oxycodone/ Acetaminophen (Percocet 10/325) 1 tab PRN Q4HRS PRN PO pain Last administered on 06/11/17 04:51; Start 06/09/17 at 08:00 Magnesium Sulfate/ Dextrose 50 ml @ 25 mls/hr 1X ONCE IV Last administered on 06/09/17 09:31; Start 06/09/17 at 08:00; Stop 06/09/17 at 09:59; Status DC Potassium Phosphate (K-Phos Original) 500 mg BID PO Last administered on 08:34; Start 06/09/17 at 09:00 Lidocaine (Lidoderm) 1 patch DAILY TD Last administered on 06/09/17 09:36; Start 06/09/17 at 09:00; Stop 06/10/17 at 20:50; Status DC Potassium Phosphate 13.6 mmol/Sodium Chloride 104.5333 ml @ 52.267 m... 1X ONCE IV Last administered on 06/09/17 13:51; Start 06/09/17 at 13:30; Stop 06/09/17 at 15:29; Status DC Sodium Chloride 40 meq/Sodium Acetate 50 meq/ Potassium Chloride 40 meq/ Potassium Phosphate 20 mmol/ Magnesium Sulfate 15 meq/Calcium Gluconate 10 meq/ Multivitamins 10 ml/Chromium/ Copper/Manganese/ Seleni/Zn 1 ml/ Total Parenteral Nutrition/Amino Acids/Dextrose/ Fat Emulsion Intravenous 1,512 ml @ 63 mls/hr TPN CONT IV Last administered on 06/09/17 22:11; Start 06/09/17 at 22:00; Stop 06/10/17 at 21:59; Status DC Potassium Chloride (Klor-Con) 40 meq 1X ONCE PO Last administered on 10:40; Start 06/10/17 at 09:30; Stop 06/10/17 at 09:31; Status DC Potassium Chloride (Klor-Con) 20 meq [id number] PO Last administered on 08:34; Start 06/11/17 at 08:00 Magnesium Sulfate/ Dextrose 50 ml @ 25 mls/hr 1X ONCE IV Last administered on 06/10/17 10:38; Start 06/10/17 at 10:00; Stop 06/10/17 at 11:59; Status DC Sodium Chloride 40 meq/Sodium Acetate 50 meq/ Potassium Acetate 60 meq/ Potassium Phosphate 18 mmol/ Magnesium Sulfate 18 meq/Calcium Gluconate 10 meq/ Multivitamins 10 ml/Chromium/ Copper/Manganese/ Seleni/Zn 1 ml/ Total Parenteral Nutrition/Amino Acids/Dextrose/ Fat Emulsion Intravenous 1,512 ml @ 63 mls/hr TPN CONT IV Last administered on 06/10/17 21:43; Start 06/10/17 at 22:00; Stop 06/11/17 at 21:59 Lidocaine (Lidoderm) 1 patch QHS TD Last administered on 06/10/17 21:37; Start 06/10/17 at 21:00 Magnesium Sulfate/ Dextrose 100 ml @ 25 mls/hr 1X ONCE IV ; Start 06/11/17 at 09:00; Stop 06/11/17 at 12:59 Active Scripts Active Reported [prednisone taper] Metoprolol Succinate ( Xl ) (Metoprolol Succinate) 100 Mg Tab.er.24h 1 Tab PO DAILY Lisinopril 10 Mg Tablet 1 Tab PO DAILY Hydrochlorothiazide Tablet (Hydrochlorothiazide) 50 Mg Tablet 25 Tab PO DAILY Vitals/I & O Vital Sign - Last 24 Hours 06/10/17 06/10/17 06/10/17 06/10/17 10:32 11:00 14:31 15:00 Temp 98.2 98.9 98.2 98.9 Pulse 71 63 Resp 18 18 B/P (MAP) 137/78 (97) 151/79 (103) Pulse Ox 95 94 95 94 O2 Delivery Room Air Room Air Room Air Room Air O2 Flow Rate 2.0 06/10/17 06/10/17 06/10/17 06/10/17 18:37 19:00 20:00 22:59 Temp 98.3 98.3 Pulse 61 Resp 18 20 B/P (MAP) 157/86 (109) Pulse Ox 95 95 95 O2 Delivery Room Air Room Air Room Air Room Air 06/10/17 06/11/17 06/11/17 06/11/17 23:00 00:00 00:23 03:00 Temp 98.8 98.9 98.8 98.9 Pulse 67 66 Resp 18 20 20 26 B/P (MAP) 153/75 (101) 164/82 (109) Pulse Ox 93 93 93 92 O2 Delivery Room Air Room Air Room Air Room Air 06/11/17 06/11/17 06/11/17 06/11/17 04:51 05:51 07:00 08:31 Temp 98.4 98.4 Pulse 66 Resp 20 18 20 22 B/P (MAP) 169/88 (115) Pulse Ox 92 92 92 O2 Delivery Room Air Room Air Room Air Room Air TAMMY LEPE MD Jun 11, 2017 09:14
[2017-06-11 11:00] VITALS: BP 148/74
--- NOTE | 2017-06-11 11:58 | PDOC ---
PULMONARY PROGRESS NOTES Subjective no sob, cough, no pain, is tired. Vitals Vital Signs Date Time Temp Pulse Resp B/P (MAP) Pulse Ox O2 Delivery O2 Flow Rate FiO2 06/11/17 11:00 97.6 66 19 148/74 (98) 93 Room Air 97.6 06/10/17 14:31 2.0 ROS: No Nausea, No Chest Pain, No Increase Cough General: Alert HEENT: Neck ROM, Other (nc at perrl ) Lungs: Clear Cardiovascular: S1, S2 Abdomen: Soft, Non-tender, Other Neuro Exam: Alert Extremities: No Edema Skin: Warm Labs Laboratory Tests Test 06/10/17 06:10 06/10/17 06:43 06/10/17 11:39 06/10/17 16:29 Sodium Level 141 mmol/L (136-145) Potassium Level 3.4 mmol/L (3.5-5.1) Chloride Level 108 mmol/L (98-107) Carbon Dioxide Level 27 mmol/L (21-32) Anion Gap 6 (6-14) Blood Urea Nitrogen 24 mg/dL (8-26) Creatinine 0.8 mg/dL (0.7-1.3) Estimated GFR (Cockcroft-Gault) 96.7 Glucose Level 119 mg/dL (70-99) Calcium Level 7.6 mg/dL (8.5-10.1) Phosphorus Level 2.6 mg/dL (2.6-4.7) Magnesium Level 1.5 mg/dL (1.8-2.4) Glucose (Fingerstick) 117 mg/dL (70-99) 168 mg/dL (70-99) 173 mg/dL (70-99) Test 06/10/17 20:38 06/11/17 06:10 06/11/17 07:45 06/11/17 11:34 Glucose (Fingerstick) 162 mg/dL (70-99) 118 mg/dL (70-99) 174 mg/dL (70-99) Sodium Level 140 mmol/L (136-145) Potassium Level 3.9 mmol/L (3.5-5.1) Chloride Level 107 mmol/L (98-107) Carbon Dioxide Level 28 mmol/L (21-32) Anion Gap 5 (6-14) Blood Urea Nitrogen 20 mg/dL (8-26) Creatinine 0.8 mg/dL (0.7-1.3) Estimated GFR (Cockcroft-Gault) 96.7 Glucose Level 121 mg/dL (70-99) Calcium Level 7.7 mg/dL (8.5-10.1) Magnesium Level 1.7 mg/dL (1.8-2.4) Laboratory Tests Test 06/10/17 16:29 06/10/17 20:38 06/11/17 06:10 06/11/17 07:45 Glucose (Fingerstick) 173 mg/dL (70-99) 162 mg/dL (70-99) 118 mg/dL (70-99) Sodium Level 140 mmol/L (136-145) Potassium Level 3.9 mmol/L (3.5-5.1) Chloride Level 107 mmol/L (98-107) Carbon Dioxide Level 28 mmol/L (21-32) Anion Gap 5 (6-14) Blood Urea Nitrogen 20 mg/dL (8-26) Creatinine 0.8 mg/dL (0.7-1.3) Estimated GFR (Cockcroft-Gault) 96.7 Glucose Level 121 mg/dL (70-99) Calcium Level 7.7 mg/dL (8.5-10.1) Magnesium Level 1.7 mg/dL (1.8-2.4) Test 06/11/17 11:34 Glucose (Fingerstick) 174 mg/dL (70-99) Medications Active Scripts Medications Dose Route/Sig Max Daily Dose Days Date Category [prednisone taper] 06/07/17 Reported Metoprolol Succinate ( Xl ) (Metoprolol Succinate) 100 Mg Tab.er.24h 1 Tab PO DAILY 06/07/17 Reported Lisinopril 10 Mg Tablet 1 Tab PO DAILY 06/07/17 Reported Hydrochlorothiazide Tablet (Hydrochlorothiazide) 50 Mg Tablet 25 Tab PO DAILY 06/07/17 Reported Impression . IMPRESSION: 1. Acute respiratory failure, expected status post exploratory laparotomy. 2. Emergent exploratory laparotomy for perforated viscus. 3. History of alcoholism. 4. Hypertension. 5. Hyperlipidemia. 6. Severe protein malnutrition, present upon admission. 7. Hypokalemia. 8. Acute kidney injury. PREOPERATIVE DIAGNOSIS: Perforated viscus. POSTOPERATIVE DIAGNOSIS: Perforated viscus secondary to perforated sigmoid diverticulitis with fecal spillage. PROCEDURES: 1. Exploratory laparotomy. 2. Sigmoid resection with end colostomy, Eufemia's pouch. Plan . RESP STATUS IS COMPENSATED POST OP MANAGEMENT ANITBX PER ID IS pt/ot discussed w pt, , rn ALEXIS DANIELS MD Jun 11, 2017 11:58
[2017-06-11] MEDS: TPN PER PHARMACY MC PRN ×2 (12:14→12:26)
--- NOTE | 2017-06-11 12:34 | PDOC ---
MINA LYNCH CLIENT CARE REPRESENTATIVE 06/11/17 1234: SURGICAL PROGRESS NOTE Subjective pain at incision, left drain site no n/v small amount of flatus to ostomy Vital Signs Vital Signs Date Time Temp Pulse Resp B/P (MAP) Pulse Ox O2 Delivery O2 Flow Rate FiO2 06/11/17 11:00 97.6 66 19 148/74 (98) 93 Room Air 97.6 06/10/17 14:31 2.0 I&O Intake and Output 06/12/17 07:00 Output Total 400 ml Balance -400 ml Output Urine Total 400 ml General: Alert, Oriented X3, Cooperative, No acute distress Abdomen: Soft, Other (drains serous) Labs Laboratory Tests Test 06/10/17 06:10 06/10/17 06:43 06/10/17 11:39 06/10/17 16:29 Sodium Level 141 mmol/L (136-145) Potassium Level 3.4 mmol/L (3.5-5.1) Chloride Level 108 mmol/L (98-107) Carbon Dioxide Level 27 mmol/L (21-32) Anion Gap 6 (6-14) Blood Urea Nitrogen 24 mg/dL (8-26) Creatinine 0.8 mg/dL (0.7-1.3) Estimated GFR (Cockcroft-Gault) 96.7 Glucose Level 119 mg/dL (70-99) Calcium Level 7.6 mg/dL (8.5-10.1) Phosphorus Level 2.6 mg/dL (2.6-4.7) Magnesium Level 1.5 mg/dL (1.8-2.4) Glucose (Fingerstick) 117 mg/dL (70-99) 168 mg/dL (70-99) 173 mg/dL (70-99) Test 06/10/17 20:38 06/11/17 06:10 06/11/17 07:45 06/11/17 11:34 Glucose (Fingerstick) 162 mg/dL (70-99) 118 mg/dL (70-99) 174 mg/dL (70-99) Sodium Level 140 mmol/L (136-145) Potassium Level 3.9 mmol/L (3.5-5.1) Chloride Level 107 mmol/L (98-107) Carbon Dioxide Level 28 mmol/L (21-32) Anion Gap 5 (6-14) Blood Urea Nitrogen 20 mg/dL (8-26) Creatinine 0.8 mg/dL (0.7-1.3) Estimated GFR (Cockcroft-Gault) 96.7 Glucose Level 121 mg/dL (70-99) Calcium Level 7.7 mg/dL (8.5-10.1) Magnesium Level 1.7 mg/dL (1.8-2.4) Laboratory Tests Test 06/10/17 16:29 06/10/17 20:38 06/11/17 06:10 06/11/17 07:45 Glucose (Fingerstick) 173 mg/dL (70-99) 162 mg/dL (70-99) 118 mg/dL (70-99) Sodium Level 140 mmol/L (136-145) Potassium Level 3.9 mmol/L (3.5-5.1) Chloride Level 107 mmol/L (98-107) Carbon Dioxide Level 28 mmol/L (21-32) Anion Gap 5 (6-14) Blood Urea Nitrogen 20 mg/dL (8-26) Creatinine 0.8 mg/dL (0.7-1.3) Estimated GFR (Cockcroft-Gault) 96.7 Glucose Level 121 mg/dL (70-99) Calcium Level 7.7 mg/dL (8.5-10.1) Magnesium Level 1.7 mg/dL (1.8-2.4) Test 06/11/17 11:34 Glucose (Fingerstick) 174 mg/dL (70-99) Problem List Problems Medical Problems: (1) Abdominal pain Status: Acute (2) Elevated brain natriuretic peptide (BNP) level Status: Acute (3) Hypomagnesemia Status: Acute (4) Perforated abdominal viscus Status: Acute Assessment/Plan L drain--330 R drain -150 hiwot -20 if drain output low today, yaquelin reyhamjesu drains in AM continue liquids, await ostomy function Problems: MARY MARTINEZ MD 06/11/17 1518: SURGICAL PROGRESS NOTE Assessment/Plan pt seen and examined at bedside will start removing drains resume home meds as per IPC Problems: MINA LYNCH CLIENT CARE REPRESENTATIVE Jun 11, 2017 12:34 MARY MARTINEZ MD Jun 11, 2017 15:18
--- NOTE | 2017-06-11 13:45 | PDOC ---
Infectious Disease Note Subjective Subjective Mild mid-abdominal discomfort along with some pressure at tube sites, otherwise dong alright TPN Small amount ostomy output reported ROS ROS GEN: Denies fevers, chills, sweats CV: Denies chest pain RESP: Denies shortness of air, cough GI: Denies n/v Vital Sign Vital Signs Vital Signs Date Time Temp Pulse Resp B/P (MAP) Pulse Ox O2 Delivery O2 Flow Rate FiO2 06/11/17 11:00 97.6 66 19 148/74 (98) 93 Room Air 97.6 06/10/17 14:31 2.0 Physical Exam PHYSICAL EXAM GENERAL: Propped up in bed, relaxed appearance, NAD OC/Op - clear LUNGS: Clear HEART: S1 and S2 ABD: Soft, NT to light palpation. Ostomy, pink stoma. Drains x 3. midline incision approx/ladarius, serosang EXT: No edema, no cyanosis RADIO ADJUSTER: Alert, oriented x 3, no focal neurologic deficit SKIN: No rash IV: PICC - clean Labs Lab Laboratory Tests Test 06/10/17 16:29 06/10/17 20:38 06/11/17 06:10 06/11/17 07:45 Glucose (Fingerstick) 173 mg/dL (70-99) 162 mg/dL (70-99) 118 mg/dL (70-99) Sodium Level 140 mmol/L (136-145) Potassium Level 3.9 mmol/L (3.5-5.1) Chloride Level 107 mmol/L (98-107) Carbon Dioxide Level 28 mmol/L (21-32) Anion Gap 5 (6-14) Blood Urea Nitrogen 20 mg/dL (8-26) Creatinine 0.8 mg/dL (0.7-1.3) Estimated GFR (Cockcroft-Gault) 96.7 Glucose Level 121 mg/dL (70-99) Calcium Level 7.7 mg/dL (8.5-10.1) Magnesium Level 1.7 mg/dL (1.8-2.4) Test 06/11/17 11:34 Glucose (Fingerstick) 174 mg/dL (70-99) Objective Assessment Perforated viscus with fecal peritonitis, E. 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 Abdominal pain, better Respiratory failure Chronic back pain HTN Plan Plan of Care Rocephin and Flagyl supportive care Labs in am Attending Co-Sign Attending Co-Sign The patient was seen and interviewed as well as examined at the bedside. The chart was reviewed. The case was discussed. Agree with the plan of care. JUICE MADRIGAL APRN Jun 11, 2017 13:45 THALIA MORALES MD Jun 11, 2017 14:45
[2017-06-11] MEDS: hydroCHLOROthiazide 25 MG TABLET PO SCH (14:39)
[2017-06-11] MEDS: LISINOPRIL 10 MG TABLET PO SCH (14:40)
[2017-06-11] MEDS: METOPROLOL SUCC 24HR ER 100 MG TAB.ER.24H. PO SCH (14:40)
[2017-06-11 15:00] VITALS: BP 123/68
[2017-06-11 19:00] VITALS: BP 168/76
[2017-06-11] MEDS: LIDOCAINE (700MG/PATCH) PATCH. TD SCH (21:00)
[2017-06-11] MEDS ORDERED: TOTAL PARENTERAL NUTRITION IV SCH ×11 (22:00)
[2017-06-11] MEDS ORDERED: DEXTROSE 70% IV SCH ×11 (22:00)
[2017-06-11] MEDS ORDERED: [UNRECOGNIZED DRUG - OTHER] IV SCH ×11 (22:00)
[2017-06-11] MEDS ORDERED: AMINO ACIDS IV SCH ×11 (22:00)
[2017-06-11 23:12] VITALS: BP 153/69
[2017-06-12] MEDS: oxyCODONE/APAP 10/325 1 TAB TABLET PO PRN ×5 (01:47→21:32)
[2017-06-12 02:51] VITALS: BP 179/72
[2017-06-12 06:12] LABS: BASO % 0 % (0-3); EOS % 3 % (0-3); HEMATOCRIT 29.1 % (39.0-53.0); HEMOGLOBIN 9.8 g/dL (13.0-17.5); LYMPH # 1.5 x10^3/uL (1.0-4.8); LYMPH % 10 % (24-48); MEAN CORPUSCULAR HEMOGLOBIN 29 pg (25-35); MEAN CORPUSCULAR HGB CONC 34 g/dL (31-37); MEAN CORPUSCULAR VOLUME 86 fL (79-100); MONO % 8 % (0-9); NEUT % 79 % (31-73); PLATELET COUNT 327 x10^3/uL (140-400); RED CELL DISTRIBUTION WIDTH 14.5 % (11.5-14.5); WHITE BLOOD COUNT 14.3 x10^3/uL (4.0-11.0)
[2017-06-12 06:44] LABS: CALCIUM 7.8 mg/dL (8.5-10.1); CREATININE 0.9 mg/dL (0.7-1.3); GFR 84.4; MAGNESIUM 1.7 mg/dL (1.8-2.4); POTASSIUM 3.9 mmol/L (3.5-5.1)
[2017-06-12 07:00] VITALS: BP 178/76
[2017-06-12] MEDS: LIDOCAINE (700MG/PATCH) PATCH. TD SCH (08:45)
[2017-06-12] MEDS: POTASSIUM PHOSPHATE,MONOBASIC 500 MG TABLET. PO SCH ×2 (08:46→21:32)
[2017-06-12] MEDS: POTASSIUM CHLORIDE 20 MEQ TABLET.ER. PO SCH (08:46)
[2017-06-12] MEDS: METOPROLOL SUCC 24HR ER 100 MG TAB.ER.24H. PO SCH (08:46)
[2017-06-12] MEDS: LISINOPRIL 10 MG TABLET PO SCH (08:47)
[2017-06-12] MEDS: methylPREDNISolone SOD SUCC PF 125 MG/2 ML VIAL. IV SCH (08:47)
[2017-06-12] MEDS: hydroCHLOROthiazide 25 MG TABLET PO SCH (08:47)
[2017-06-12] MEDS: ENOXAPARIN 40 MG/0.4 ML SYRINGE. SQ SCH (08:48)
[2017-06-12] MEDS: DICLOFENAC SODIUM 1% TOPICAL GEL 100GM TUBE. TP SCH ×2 (08:49→21:00)
[2017-06-12] MEDS ORDERED: hydrALAZINE 20 MG/ML VIAL. IVP PRN (09:00)
[2017-06-12] MEDS ORDERED: MAGNESIUM SULFATE 4GM 100 ML IV ONE (09:30)
--- NOTE | 2017-06-12 10:13 | PDOC ---
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, fecal peritonitis - off twister frame tender pump Persistent hypomagnesemia HTN HLD NEW onset afib with RVR, SINus now hypokalemia, corrected Elcoholism, hx DESTINEE, dehydration, vasomotor mild malnutrition HYPophosphatemia, corrected Acute on chronic sciatica History of Present Illness History of Present Illness Asleep did not awaken Pain managed BP high side WBC today 14 (new- has always been normal), no temps though HAs 3 abd drains (L and R [place] drains and 1 GONZALES drain which only has 5 cc output) MAg PERSISTENTLY LOW FOR THE PAST 4 days despite my correction I DID DISCUSS WITH PHARMACist CINDY TODAY - TO ADJUST TPN AND ADD MORE MAG PLAN; Might be able to dc abd drains today per GS Diet per GS - might be able to upgrade from liquid Cont BZ but lower dose - gets anxious per RN Mag sulfate 4 gms IV now and start magOH 400 pO qD LAbs again tmr Refused PT - claims can ambulate to chair on his own prn anti hypertensives (not on any home BP meds) Vitals Vitals Vital Signs Date Time Temp Pulse Resp B/P (MAP) Pulse Ox O2 Delivery O2 Flow Rate FiO2 06/12/17 09:41 95 Room Air 2.0 06/12/17 08:47 79 179/72 06/12/17 07:00 98.3 18 98.3 Physical Exam Physical Exam General: Alert, Oriented X3, Cooperative, No acute distress Heart: Regular rate, Normal S1, Normal S2, No murmurs Lungs: Clear Abdomen: Soft, Other (3 abd drains, left, right ambersome and 1 GONZALES drain) Extremities: No edema, Normal pulses Skin: No breakdown Labs LABS Laboratory Tests Test 06/11/17 11:34 06/11/17 16:41 06/11/17 20:33 06/12/17 06:00 Glucose (Fingerstick) 174 mg/dL (70-99) 213 mg/dL (70-99) 173 mg/dL (70-99) White Blood Count 14.3 x10^3/uL (4.0-11.0) Red Blood Count 3.40 x10^6/uL (4.30-5.70) Hemoglobin 9.8 g/dL (13.0-17.5) Hematocrit 29.1 % (39.0-53.0) Mean Corpuscular Volume 86 fL (79-100) Mean Corpuscular Hemoglobin 29 pg (25-35) Mean Corpuscular Hemoglobin Concent 34 g/dL (31-37) Red Cell Distribution Width 14.5 % (11.5-14.5) Platelet Count 327 x10^3/uL (140-400) Neutrophils (%) (Auto) 79 % (31-73) Lymphocytes (%) (Auto) 10 % (24-48) Monocytes (%) (Auto) 8 % (0-9) Eosinophils (%) (Auto) 3 % (0-3) Basophils (%) (Auto) 0 % (0-3) Neutrophils # (Auto) 11.2 x10^3uL (1.8-7.7) Lymphocytes # (Auto) 1.5 x10^3/uL (1.0-4.8) Monocytes # (Auto) 1.1 x10^3/uL (0.0-1.1) Eosinophils # (Auto) 0.5 x10^3/uL (0.0-0.7) Basophils # (Auto) 0.0 x10^3/uL (0.0-0.2) Sodium Level 137 mmol/L (136-145) Potassium Level 3.9 mmol/L (3.5-5.1) Chloride Level 103 mmol/L (98-107) Carbon Dioxide Level 29 mmol/L (21-32) Anion Gap 5 (6-14) Blood Urea Nitrogen 20 mg/dL (8-26) Creatinine 0.9 mg/dL (0.7-1.3) Estimated GFR (Cockcroft-Gault) 84.4 Glucose Level 113 mg/dL (70-99) Calcium Level 7.8 mg/dL (8.5-10.1) Magnesium Level 1.7 mg/dL (1.8-2.4) Test 06/12/17 07:59 Glucose (Fingerstick) 118 mg/dL (70-99) Review of Systems Review of Systems sleeping Assessment and Plan Assessmemt and Plan Problems Medical Problems: (1) Abdominal pain Status: Acute (2) Elevated brain natriuretic peptide (BNP) level Status: Acute (3) Hypomagnesemia Status: Acute (4) Perforated abdominal viscus Status: Acute Problems: Comment Review of Relevant I have reviewed the following items ananda (where applicable) has been applied. Labs Laboratory Tests Test 06/10/17 11:39 06/10/17 16:29 06/10/17 20:38 06/11/17 06:10 Glucose (Fingerstick) 168 mg/dL (70-99) 173 mg/dL (70-99) 162 mg/dL (70-99) Sodium Level 140 mmol/L (136-145) Potassium Level 3.9 mmol/L (3.5-5.1) Chloride Level 107 mmol/L (98-107) Carbon Dioxide Level 28 mmol/L (21-32) Anion Gap 5 (6-14) Blood Urea Nitrogen 20 mg/dL (8-26) Creatinine 0.8 mg/dL (0.7-1.3) Estimated GFR (Cockcroft-Gault) 96.7 Glucose Level 121 mg/dL (70-99) Calcium Level 7.7 mg/dL (8.5-10.1) Magnesium Level 1.7 mg/dL (1.8-2.4) Test 06/11/17 07:45 06/11/17 11:34 06/11/17 16:41 06/11/17 20:33 Glucose (Fingerstick) 118 mg/dL (70-99) 174 mg/dL (70-99) 213 mg/dL (70-99) 173 mg/dL (70-99) Test 06/12/17 06:00 06/12/17 07:59 White Blood Count 14.3 x10^3/uL (4.0-11.0) Red Blood Count 3.40 x10^6/uL (4.30-5.70) Hemoglobin 9.8 g/dL (13.0-17.5) Hematocrit 29.1 % (39.0-53.0) Mean Corpuscular Volume 86 fL (79-100) Mean Corpuscular Hemoglobin 29 pg (25-35) Mean Corpuscular Hemoglobin Concent 34 g/dL (31-37) Red Cell Distribution Width 14.5 % (11.5-14.5) Platelet Count 327 x10^3/uL (140-400) Neutrophils (%) (Auto) 79 % (31-73) Lymphocytes (%) (Auto) 10 % (24-48) Monocytes (%) (Auto) 8 % (0-9) Eosinophils (%) (Auto) 3 % (0-3) Basophils (%) (Auto) 0 % (0-3) Neutrophils # (Auto) 11.2 x10^3uL (1.8-7.7) Lymphocytes # (Auto) 1.5 x10^3/uL (1.0-4.8) Monocytes # (Auto) 1.1 x10^3/uL (0.0-1.1) Eosinophils # (Auto) 0.5 x10^3/uL (0.0-0.7) Basophils # (Auto) 0.0 x10^3/uL (0.0-0.2) Sodium Level 137 mmol/L (136-145) Potassium Level 3.9 mmol/L (3.5-5.1) Chloride Level 103 mmol/L (98-107) Carbon Dioxide Level 29 mmol/L (21-32) Anion Gap 5 (6-14) Blood Urea Nitrogen 20 mg/dL (8-26) Creatinine 0.9 mg/dL (0.7-1.3) Estimated GFR (Cockcroft-Gault) 84.4 Glucose Level 113 mg/dL (70-99) Calcium Level 7.8 mg/dL (8.5-10.1) Magnesium Level 1.7 mg/dL (1.8-2.4) Glucose (Fingerstick) 118 mg/dL (70-99) Laboratory Tests Test 06/11/17 11:34 06/11/17 16:41 06/11/17 20:33 06/12/17 06:00 Glucose (Fingerstick) 174 mg/dL (70-99) 213 mg/dL (70-99) 173 mg/dL (70-99) White Blood Count 14.3 x10^3/uL (4.0-11.0) Red Blood Count 3.40 x10^6/uL (4.30-5.70) Hemoglobin 9.8 g/dL (13.0-17.5) Hematocrit 29.1 % (39.0-53.0) Mean Corpuscular Volume 86 fL (79-100) Mean Corpuscular Hemoglobin 29 pg (25-35) Mean Corpuscular Hemoglobin Concent 34 g/dL (31-37) Red Cell Distribution Width 14.5 % (11.5-14.5) Platelet Count 327 x10^3/uL (140-400) Neutrophils (%) (Auto) 79 % (31-73) Lymphocytes (%) (Auto) 10 % (24-48) Monocytes (%) (Auto) 8 % (0-9) Eosinophils (%) (Auto) 3 % (0-3) Basophils (%) (Auto) 0 % (0-3) Neutrophils # (Auto) 11.2 x10^3uL (1.8-7.7) Lymphocytes # (Auto) 1.5 x10^3/uL (1.0-4.8) Monocytes # (Auto) 1.1 x10^3/uL (0.0-1.1) Eosinophils # (Auto) 0.5 x10^3/uL (0.0-0.7) Basophils # (Auto) 0.0 x10^3/uL (0.0-0.2) Sodium Level 137 mmol/L (136-145) Potassium Level 3.9 mmol/L (3.5-5.1) Chloride Level 103 mmol/L (98-107) Carbon Dioxide Level 29 mmol/L (21-32) Anion Gap 5 (6-14) Blood Urea Nitrogen 20 mg/dL (8-26) Creatinine 0.9 mg/dL (0.7-1.3) Estimated GFR (Cockcroft-Gault) 84.4 Glucose Level 113 mg/dL (70-99) Calcium Level 7.8 mg/dL (8.5-10.1) Magnesium Level 1.7 mg/dL (1.8-2.4) Test 06/12/17 07:59 Glucose (Fingerstick) 118 mg/dL (70-99) Microbiology 06/06/17 Anaerobic/Aerobic Culture - Final, Complete 06/06/17 Anaerobic Culture Result 1 (AISSATOU) - Final, Complete 06/06/17 Anaerobic Culture Result 2 (AISSATOU) - Final, Complete 06/06/17 Aerobic Culture - Final, Complete 06/06/17 Aerobic Culture Result 1 (AISSATOU) - Final, Complete 06/06/17 Aerobic Culture Result 2 (AISSATOU) - Final, Complete 06/06/17 Antimicrobic Susceptibility - Final, Complete Medications Current Medications Sodium Chloride 1,000 ml @ 1,000 mls/hr 1X ONCE IV Last administered on 08:22; Start 06/06/17 at 08:30; Stop 06/06/17 at 09:29; Status DC Ondansetron HCl (Zofran) 8 mg 1X ONCE IV Last administered on 06/06/17 08:23 ; Start 06/06/17 at 08:30; Stop 06/06/17 at 08:31; Status DC Morphine Sulfate 5 mg 1X ONCE IV Last administered on 06/06/17 08:29; Start 06/06/17 at 08:30; Stop 06/06/17 at 08:31; Status DC Potassium Chloride (Klor-Con) 40 meq 1X ONCE PO Last administered on 09:31; Start 06/06/17 at 08:30; Stop 06/06/17 at 08:31; Status DC Potassium Chloride/Sodium Chloride 1,000 ml @ 250 mls/hr 1X ONCE IV Last administered on 06/06/17 09:36; Start 06/06/17 at 08:30; Stop 06/06/17 at 12:29 ; Status DC Iohexol (Omnipaque 300 Mg/ml) 60 ml 1X ONCE IV Last administered on 06/06/17 08:51; Start 06/06/17 at 08:45; Stop 06/06/17 at 08:46; Status DC Magnesium Oxide (Magnesium Oxide) 800 mg 1X STAT PO Last administered on 09:31; Start 06/06/17 at 08:37; Stop 06/06/17 at 08:40; Status DC Info (Do NOT chart on this entry -- for MONITORING) 1 each PRN DAILY PRN MC SEE COMMENTS; Start 06/06/17 at 08:45; Stop 06/08/17 at 08:44; Status DC Metronidazole 100 ml @ 100 mls/hr 1X ONCE IV Last administered on 06/06/17 10:00; Start 06/06/17 at 09:30; Stop 06/06/17 at 10:29; Status DC Levofloxacin/ Dextrose (Levaquin Per Pharmacy) 1 each PRN DAILY PRN MC SEE COMMENTS; Start 06/06/17 at 09:30; Stop 06/08/17 at 09:20; Status DC Levofloxacin/ Dextrose 100 ml @ 100 mls/hr 1X ONCE IV ; Start 06/06/17 at 09: 30; Stop 06/06/17 at 10:29; Status DC Levofloxacin/ Dextrose 100 ml @ 100 mls/hr Q24H IV Last administered on 11:36; Start 06/07/17 at 10:00; Stop 06/08/17 at 08:03; Status DC Rocuronium Stuart (Zemuron) 100 mg STK-MED ONCE .ROUTE ; Start 06/06/17 at 10: 28; Stop 06/06/17 at 10:29; Status DC Fentanyl Citrate (Fentanyl 5ml Vial) 250 mcg STK-MED ONCE .ROUTE ; Start at 10:28; Stop 06/06/17 at 10:29; Status DC Propofol 20 ml @ As Directed STK-MED ONCE IV ; Start 06/06/17 at 10:32; Stop at 10:33; Status DC Lidocaine HCl (Lidocaine Pf 2% Vial) 5 ml STK-MED ONCE .ROUTE ; Start 06/06/17 at 10:32; Stop 06/06/17 at 10:33; Status DC Ondansetron HCl (Zofran) 4 mg STK-MED ONCE .ROUTE ; Start 06/06/17 at 10:33; Stop 06/06/17 at 10:34; Status DC Dexamethasone Sodium Phosphate (Decadron) 20 mg STK-MED ONCE .ROUTE ; Start 06/06/17 at 10:33; Stop 06/06/17 at 10:34; Status DC Multivitamins 10 ml/Folic Acid 1 mg/Thiamine HCl 100 mg/Ringer's Solution 1, 011.2 ml @ 1,000 mls/ hr 1X ONCE IV ; Start 06/06/17 at 11:30; Stop 06/06/17 at 12:30; Status DC Fentanyl Citrate (Fentanyl 2ml Vial) 25 mcg PRN Q5MIN PRN IV MILD PAIN; Start 06/06/17 at 11:45; Stop 06/07/17 at 11:44; Status DC Fentanyl Citrate (Fentanyl 2ml Vial) 50 mcg PRN Q5MIN PRN IV MODERATE PAIN Last administered on 06/06/17 17:24; Start 06/06/17 at 11:45; Stop 06/07/17 at 11:44; Status DC Morphine Sulfate 1 mg PRN Q10MIN PRN IV SEVERE PAIN Last administered on t 15:38; Start 06/06/17 at 11:45; Stop 06/07/17 at 11:44; Status DC Ringer's Solution 1,000 ml @ 30 mls/hr Q24H IV ; Start 06/06/17 at 11:39; Stop 06/06/17 at 23:38; Status DC Lidocaine HCl (Xylocaine-Mpf 1% Vial) 2 ml 1X PRN PRN ID IV START; Start at 11:45; Stop 06/07/17 at 11:44; Status DC Hydromorphone HCl (Dilaudid) 0.5 mg PRN Q10MIN PRN IV SEV PAIN, Second choice; Start 06/06/17 at 11:45; Stop 06/07/17 at 11:44; Status DC Prochlorperazine Edisylate (Compazine) 5 mg PACU PRN PRN IV NAUSEA, MRX1; Start 06/06/17 at 11:45; Stop 06/07/17 at 11:44; Status DC Phenylephrine HCl (Pedro-Synephrine Inj) 10 mg STK-MED ONCE .ROUTE ; Start at 11:58; Stop 06/06/17 at 11:59; Status DC Sodium Chloride (Sodium Chloride) 50 ml STK-MED ONCE IJ ; Start 06/06/17 at 11: 58; Stop 06/06/17 at 11:59; Status DC Sevoflurane (Ultane) 90 ml STK-MED ONCE IH ; Start 06/06/17 at 13:52; Stop 06/06 at 13:53; Status DC Neostigmine Methylsulfate 5 mg STK-MED ONCE .ROUTE ; Start 06/06/17 at 13:52; Stop 06/06/17 at 13:53; Status DC Glycopyrrolate (Robinul) 1 mg STK-MED ONCE .ROUTE ; Start 06/06/17 at 13:52; Stop 06/06/17 at 13:53; Status DC Fentanyl Citrate (Fentanyl 2ml Vial) 100 mcg STK-MED ONCE .ROUTE ; Start at 14:18; Stop 06/06/17 at 14:19; Status DC Diphenhydramine HCl (Benadryl) 25 mg PRN Q6HRS PRN IV ITCHING; Start 06/06/17 at 14:30 Enoxaparin Sodium (Lovenox 40mg Syringe) 40 mg Q24H SQ Last administered on 15:00; Start 06/06/17 at 15:00; Stop 06/06/17 at 15:41; Status DC Sodium Chloride (Normal Saline Flush) 3 ml QSHIFT PRN IV AFTER MEDS AND BLOOD DRAWS; Start 06/06/17 at 14:30 Potassium Chloride/Sodium Chloride 1,000 ml @ 100 mls/hr Q10H IV Last administered on 06/07/17 20:00; Start 06/06/17 at 15:00; Stop 06/08/17 at 09: 20; Status DC Hydromorphone HCl 30 ml @ 0 mls/hr CONT PRN PRN IV PROTOCOL; Start 06/06/17 at 14:30; Stop 06/06/17 at 17:30; Status DC Ondansetron HCl (Zofran) 4 mg PRN Q6HRS PRN IV NAUESA, 1ST CHOICE; Start at 14:30 Epinephrine (S2 Racepinephrine) 0.5 ml STK-MED ONCE .ROUTE ; Start 06/06/17 at 14:35; Stop 06/06/17 at 14:36; Status DC Propofol 50 ml @ As Directed STK-MED ONCE IV ; Start 06/06/17 at 14:38; Stop at 14:39; Status DC Succinylcholine Chloride (Anectine) 200 mg STK-MED ONCE .ROUTE ; Start 06/06/17 at 14:40; Stop 06/06/17 at 14:41; Status DC Epinephrine (S2 Racepinephrine) 0.5 ml 1X ONCE NEB Last administered on 14:43; Start 06/06/17 at 14:36; Stop 06/06/17 at 14:43; Status DC Midazolam HCl (Versed) 2 mg STK-MED ONCE .ROUTE ; Start 06/06/17 at 14:48; Stop 06/06/17 at 14:49; Status DC Propofol 100 ml @ 0 mls/hr CONT PRN IV SEE I/O RECORD; Start 06/06/17 at 15:15 ; Stop 06/08/17 at 09:20; Status DC Propofol 50 ml @ As Directed STK-MED ONCE IV ; Start 06/06/17 at 15:03; Stop at 15:04; Status DC Dexamethasone Sodium Phosphate (Decadron) 12 mg 1X ONCE IV Last administered on 06/06/17 15:09; Start 06/06/17 at 15:00; Stop 06/06/17 at 15:06; Status DC Dexamethasone Sodium Phosphate (Decadron) 4 mg STK-MED ONCE .ROUTE ; Start 06/06 at 15:05; Stop 06/06/17 at 15:06; Status DC Propofol 50 ml @ 0 mls/hr 1X ONCE IV Last administered on 06/06/17 15:02; Start 06/06/17 at 15:15; Stop 06/06/17 at 15:16; Status DC Succinylcholine Chloride (Anectine) 200 mg 1X ONCE IV ; Start 06/06/17 at 15:15 ; Stop 06/06/17 at 15:16; Status DC Midazolam HCl (Versed) 2 mg 1X ONCE IV ; Start 06/06/17 at 15:15; Stop at 15:16; Status DC Cellulose 1 each STK-MED ONCE .ROUTE Last administered on 06/06/17 13:35; Start 06/06/17 at 14:19; Stop 06/06/17 at 15:20; Status DC Enoxaparin Sodium (Lovenox 40mg Syringe) 40 mg Q24H SQ Last administered on 08:48; Start 06/07/17 at 09:00 Metronidazole 100 ml @ 100 mls/hr Q12HR IV Last administered on 06/12/17 09: 40; Start 06/06/17 at 21:00 Multivitamins 10 ml/Folic Acid 1 mg/Thiamine HCl 100 mg/Dextrose/ Lactated Ringer's 1,011.2 ml @ 100 mls/ hr DAILY IV Last administered on 06/07/17 09: 21; Start 06/07/17 at 09:00; Stop 06/08/17 at 08:06; Status DC Lorazepam (Ativan) 2 mg PRN Q4HRS PRN IV ANXIETY / AGITATION; Start 06/06/17 at 15:45 Famotidine (Pepcid) 20 mg BID IVP Last administered on 06/08/17 11:18; Start 06/06/17 at 21:00; Stop 06/09/17 at 07:53; Status DC Morphine Sulfate 2 mg PRN Q2HR PRN IV PAIN Last administered on 06/10/17 22: 59; Start 06/06/17 at 15:45 Morphine Sulfate 4 mg PRN Q2HR PRN IV PAIN Last administered on 06/11/17 08: 31; Start 06/06/17 at 15:45 Ondansetron HCl (Zofran) 4 mg PRN Q6HRS PRN IV NAUSEA/VOMITING; Start 06/06/17 at 15:45; Stop 06/06/17 at 15:45; Status DC Fentanyl Citrate 30 ml @ 0 mls/hr CONT PRN IV PROTOCOL Last administered on 02:54; Start 06/06/17 at 17:30; Stop 06/07/17 at 10:39; Status DC Midazolam HCl 100 ml @ 0 mls/hr CONT PRN IV SEE I/O RECORD; Start 06/06/17 at 23:00; Stop 06/08/17 at 09:20; Status DC Sodium Chloride 1,000 ml @ 1,000 mls/hr 1X ONCE IV Last administered on 23:34; Start 06/06/17 at 23:00; Stop 06/06/17 at 23:59; Status DC Magnesium Sulfate/ Dextrose 50 ml @ 25 mls/hr 1X ONCE IV Last administered on 06/07/17 09:28; Start 06/07/17 at 08:15; Stop 06/07/17 at 10:14; Status DC Info 1 each PRN DAILY PRN MC SEE COMMENTS Last administered on 06/11/17 12:26 ; Start 06/07/17 at 09:30 Methylprednisolone Sodium Succinate (SOLU-Medrol 125MG VIAL) 50 mg DAILY IV Last administered on 06/12/17 08:47; Start 06/07/17 at 11:00 Hydromorphone HCl 30 ml @ 0 mls/hr CONT PRN PRN IV PROTOCOL Last administered on 06/07/17 11:16; Start 06/07/17 at 10:45; Stop 06/09/17 at 08:57; Status DC Sodium Chloride 90 meq/Potassium Chloride 50 meq/ Potassium Phosphate 13.6 mmol/ Magnesium Sulfate 10 meq/ Calcium Gluconate 10 meq/ Multivitamins 10 ml/Chromium / Copper/Manganese/ Seleni/Zn 1 ml/ Total Parenteral Nutrition/Amino Acids/ Dextrose/ Fat Emulsion Intravenous 1,512 ml @ 63 mls/hr TPN CONT IV Last administered on 06/07/17 22:04; Start 06/07/17 at 22:00; Stop 06/08/17 at 21 :59; Status DC Influenza Virus Vaccine Quadrival (Fluarix Quad [id number] Syringe) 0.5 ml ONCE ONCE VAX IM Last administered on 06/08/17 13:23; Start 06/07/17 at 16:15; Stop 06/07/17 at 16:35; Status DC Pneumococcal Polyvalent Vaccine (Do NOT chart on this placeholder) 1 each PRN 1X PRN MC SEE COMMENTS; Start 06/07/17 at 16:45; Status UNV Pneumococcal Polyvalent Vaccine (Pneumovax 23) 0.5 ml ONCE ONCE VAX IM Last administered on 06/08/17 13:25; Start 06/07/17 at 17:00; Stop 06/07/17 at 17 :01; Status DC Ceftriaxone Sodium 1 gm/ Sodium Chloride 50 ml @ 100 mls/hr Q24H IV Last administered on 06/12/17 08:45; Start 06/08/17 at 09:00 Sodium Phosphate 20 mmol/Dextrose 256.6667 ml @ 64.167 m... 1X ONCE IV Last administered on 06/08/17 08:58; Start 06/08/17 at 09:00; Stop 06/08/17 at 12 :59; Status DC Multi-Ingred Cream/Lotion/Oil/ Oint (Artificial Tears Eye Oint) 1 juvenal PRN Q1HR PRN OU DRY EYE; Start 06/08/17 at 09:15 Sodium Chloride 90 meq/Potassium Chloride 40 meq/ Potassium Phosphate 17 mmol/ Magnesium Sulfate 10 meq/Calcium Gluconate 10 meq/ Multivitamins 10 ml/Chromium / Copper/Manganese/ Seleni/Zn 1 ml/ Total Parenteral Nutrition/Amino Acids/ Dextrose/ Fat Emulsion Intravenous 1,512 ml @ 63 mls/hr TPN CONT IV Last administered on 06/08/17 22:42; Start 06/08/17 at 22:00; Stop 06/09/17 at 21 :59; Status DC Diclofenac Sodium (Voltaren) 1 juvenal BID TP Last administered on 06/12/17 08:49 ; Start 06/08/17 at 21:00 Oxycodone/ Acetaminophen (Percocet 10/325) 1 tab PRN Q4HRS PRN PO pain Last administered on 06/12/17 09:41; Start 06/09/17 at 08:00 Magnesium Sulfate/ Dextrose 50 ml @ 25 mls/hr 1X ONCE IV Last administered on 06/09/17 09:31; Start 06/09/17 at 08:00; Stop 06/09/17 at 09:59; Status DC Potassium Phosphate (K-Phos Original) 500 mg BID PO Last administered on 08:46; Start 06/09/17 at 09:00 Lidocaine (Lidoderm) 1 patch DAILY TD Last administered on 06/09/17 09:36; Start 06/09/17 at 09:00; Stop 06/10/17 at 20:50; Status DC Potassium Phosphate 13.6 mmol/Sodium Chloride 104.5333 ml @ 52.267 m... 1X ONCE IV Last administered on 06/09/17 13:51; Start 06/09/17 at 13:30; Stop 06/09/17 at 15:29; Status DC Sodium Chloride 40 meq/Sodium Acetate 50 meq/ Potassium Chloride 40 meq/ Potassium Phosphate 20 mmol/ Magnesium Sulfate 15 meq/Calcium Gluconate 10 meq/ Multivitamins 10 ml/Chromium/ Copper/Manganese/ Seleni/Zn 1 ml/ Total Parenteral Nutrition/Amino Acids/Dextrose/ Fat Emulsion Intravenous 1,512 ml @ 63 mls/hr TPN CONT IV Last administered on 06/09/17 22:11; Start 06/09/17 at 22:00; Stop 06/10/17 at 21:59; Status DC Potassium Chloride (Klor-Con) 40 meq 1X ONCE PO Last administered on 10:40; Start 06/10/17 at 09:30; Stop 06/10/17 at 09:31; Status DC Potassium Chloride (Klor-Con) 20 meq [id number] PO Last administered on 08:46; Start 06/11/17 at 08:00 Magnesium Sulfate/ Dextrose 50 ml @ 25 mls/hr 1X ONCE IV Last administered on 06/10/17 10:38; Start 06/10/17 at 10:00; Stop 06/10/17 at 11:59; Status DC Sodium Chloride 40 meq/Sodium Acetate 50 meq/ Potassium Acetate 60 meq/ Potassium Phosphate 18 mmol/ Magnesium Sulfate 18 meq/Calcium Gluconate 10 meq/ Multivitamins 10 ml/Chromium/ Copper/Manganese/ Seleni/Zn 1 ml/ Total Parenteral Nutrition/Amino Acids/Dextrose/ Fat Emulsion Intravenous 1,512 ml @ 63 mls/hr TPN CONT IV Last administered on 06/10/17 21:43; Start 06/10/17 at 22:00; Stop 06/11/17 at 22:00; Status DC Lidocaine (Lidoderm) 1 patch QHS TD Last administered on 06/10/17 21:37; Start 06/10/17 at 21:00; Stop 06/12/17 at 05:01; Status DC Magnesium Sulfate/ Dextrose 100 ml @ 25 mls/hr 1X ONCE IV Last administered on 06/11/17 11:22; Start 06/11/17 at 09:00; Stop 06/11/17 at 12:59; Status DC Lisinopril (Prinivil) 10 mg DAILY PO Last administered on 06/12/17 08:47; Start 06/11/17 at 13:00 Metoprolol Succinate (Toprol Xl) 100 mg DAILY PO Last administered on 08:46; Start 06/11/17 at 13:00 Hydrochlorothiazide (Hydrodiuril) 25 mg DAILY PO Last administered on 08:47; Start 06/11/17 at 13:00 Sodium Chloride 40 meq/Sodium Acetate 50 meq/ Potassium Acetate 60 meq/ Potassium Phosphate 18 mmol/ Magnesium Sulfate 18 meq/Calcium Gluconate 10 meq/ Multivitamins 10 ml/Chromium/ Copper/Manganese/ Seleni/Zn 1 ml/ Total Parenteral Nutrition/Amino Acids/Dextrose/ Fat Emulsion Intravenous 1,512 ml @ 63 mls/hr TPN CONT IV Last administered on 06/11/17 21:43; Start 06/11/17 at 22:00; Stop 06/12/17 at 21:59 Lidocaine (Lidoderm) 1 patch DAILY TD Last administered on 06/12/17 08:45; Start 06/12/17 at 09:00 Hydralazine HCl (Apresoline Inj) 10 mg PRN Q4HRS PRN IVP ELEVATED BP, SEE COMMENTS; Start 06/12/17 at 09:00 Magnesium Sulfate/ Dextrose 100 ml @ 25 mls/hr 1X ONCE IV Last administered on 06/12/17 09:53; Start 06/12/17 at 09:30; Stop 06/12/17 at 13:29 Magnesium Oxide (Magnesium Oxide) 400 mg DAILY PO ; Start 06/12/17 at 09:30 Active Scripts Active Reported [prednisone taper] Metoprolol Succinate ( Xl ) (Metoprolol Succinate) 100 Mg Tab.er.24h 1 Tab PO DAILY Lisinopril 10 Mg Tablet 1 Tab PO DAILY Hydrochlorothiazide Tablet (Hydrochlorothiazide) 50 Mg Tablet 25 Tab PO DAILY Vitals/I & O Vital Sign - Last 24 Hours 06/11/17 06/11/17 06/11/17 06/11/17 11:00 14:39 14:40 14:40 Temp 97.6 97.6 Pulse 66 66 66 Resp 19 20 B/P (MAP) 148/74 (98) 148/74 148/74 Pulse Ox 93 O2 Delivery Room Air Room Air 06/11/17 06/11/17 06/11/17 06/11/17 15:00 15:39 17:36 19:00 Temp 99.5 99.3 99.5 99.3 Pulse 80 69 Resp 18 20 20 18 B/P (MAP) 123/68 (86) 168/76 (106) Pulse Ox 92 94 O2 Delivery Room Air Room Air Room Air 06/11/17 06/11/17 06/11/17 06/12/17 20:00 22:45 23:12 02:51 Temp 98.7 98.7 Pulse 59 79 Resp 19 17 B/P (MAP) 153/69 (97) 179/72 (107) Pulse Ox 92 95 O2 Delivery Room Air Room Air Room Air O2 Flow Rate 2.0 06/12/17 06/12/17 06/12/17 06/12/17 07:00 08:40 08:46 08:47 Temp 98.3 98.3 Pulse 63 79 79 Resp 18 B/P (MAP) 178/76 (110) 179/72 179/72 Pulse Ox 94 95 O2 Delivery Room Air Room Air 06/12/17 09:41 Pulse Ox 95 O2 Delivery Room Air O2 Flow Rate 2.0 TMAMY LEPE MD Jun 12, 2017 10:13
[2017-06-12] MEDS ORDERED: ALPRAZolam 0.5 MG TABLET PO PRN (10:15)
--- NOTE | 2017-06-12 10:51 | PDOC ---
Infectious Disease Note Subjective Subjective Comfortable, feels strength is improving Tolerating clear liquids ROS ROS GEN: Denies fevers, chills, sweats CV: Denies chest pain RESP: Denies shortness of air, cough GI: Denies n/v Vital Sign Vital Signs Vital Signs Date Time Temp Pulse Resp B/P (MAP) Pulse Ox O2 Delivery O2 Flow Rate FiO2 06/12/17 09:41 95 Room Air 2.0 06/12/17 08:47 79 179/72 06/12/17 07:00 98.3 18 98.3 Physical Exam PHYSICAL EXAM GENERAL: Propped up in bed, relaxed appearance, NAD OC/Op - clear LUNGS: Clear HEART: S1 and S2 ABD: Soft, NT to light palpation. Ostomy, pink stoma. Drains x 3. 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, no focal neurologic deficit SKIN: No rash LUE PICC - clean Labs Lab Laboratory Tests Test 06/11/17 11:34 06/11/17 16:41 06/11/17 20:33 06/12/17 06:00 Glucose (Fingerstick) 174 mg/dL (70-99) 213 mg/dL (70-99) 173 mg/dL (70-99) White Blood Count 14.3 x10^3/uL (4.0-11.0) Red Blood Count 3.40 x10^6/uL (4.30-5.70) Hemoglobin 9.8 g/dL (13.0-17.5) Hematocrit 29.1 % (39.0-53.0) Mean Corpuscular Volume 86 fL (79-100) Mean Corpuscular Hemoglobin 29 pg (25-35) Mean Corpuscular Hemoglobin Concent 34 g/dL (31-37) Red Cell Distribution Width 14.5 % (11.5-14.5) Platelet Count 327 x10^3/uL (140-400) Neutrophils (%) (Auto) 79 % (31-73) Lymphocytes (%) (Auto) 10 % (24-48) Monocytes (%) (Auto) 8 % (0-9) Eosinophils (%) (Auto) 3 % (0-3) Basophils (%) (Auto) 0 % (0-3) Neutrophils # (Auto) 11.2 x10^3uL (1.8-7.7) Lymphocytes # (Auto) 1.5 x10^3/uL (1.0-4.8) Monocytes # (Auto) 1.1 x10^3/uL (0.0-1.1) Eosinophils # (Auto) 0.5 x10^3/uL (0.0-0.7) Basophils # (Auto) 0.0 x10^3/uL (0.0-0.2) Sodium Level 137 mmol/L (136-145) Potassium Level 3.9 mmol/L (3.5-5.1) Chloride Level 103 mmol/L (98-107) Carbon Dioxide Level 29 mmol/L (21-32) Anion Gap 5 (6-14) Blood Urea Nitrogen 20 mg/dL (8-26) Creatinine 0.9 mg/dL (0.7-1.3) Estimated GFR (Cockcroft-Gault) 84.4 Glucose Level 113 mg/dL (70-99) Calcium Level 7.8 mg/dL (8.5-10.1) Magnesium Level 1.7 mg/dL (1.8-2.4) Test 06/12/17 07:59 Glucose (Fingerstick) 118 mg/dL (70-99) Objective Assessment Perforated viscus with fecal peritonitis, E. 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 S/p 2 drain removal Abdominal pain, better Respiratory failure Chronic back pain HTN Leukocytosis, ? steroids Plan Plan of Care Rocephin and Flagyl Continue to monitor WBC f/u am labs PT/OT D/w Attending Co-Sign Attending Co-Sign The patient was seen and interviewed as well as examined at the bedside. The chart was reviewed. The case was discussed. Agree with the plan of care. JUICE MADRIGAL APRN Jun 12, 2017 10:51 THALIA MORALES MD Jun 12, 2017 14:12
[2017-06-12 11:00] VITALS: BP 152/89
--- NOTE | 2017-06-12 11:59 | PDOC ---
MINA LYNCH ATTORNEY RECRUITER 06/12/17 1159: SURGICAL PROGRESS NOTE Subjective No n/v pain at drain sites Vital Signs Vital Signs Date Time Temp Pulse Resp B/P (MAP) Pulse Ox O2 Delivery O2 Flow Rate FiO2 06/12/17 11:00 98.1 63 18 152/89 (110) 92 Room Air 98.1 06/12/17 09:41 2.0 General: Alert, Oriented X3, Cooperative, No acute distress Abdomen: Soft, Other (drains serous, decreasing output, stoma pink) Labs Laboratory Tests Test 06/10/17 16:29 06/10/17 20:38 06/11/17 06:10 06/11/17 07:45 Glucose (Fingerstick) 173 mg/dL (70-99) 162 mg/dL (70-99) 118 mg/dL (70-99) Sodium Level 140 mmol/L (136-145) Potassium Level 3.9 mmol/L (3.5-5.1) Chloride Level 107 mmol/L (98-107) Carbon Dioxide Level 28 mmol/L (21-32) Anion Gap 5 (6-14) Blood Urea Nitrogen 20 mg/dL (8-26) Creatinine 0.8 mg/dL (0.7-1.3) Estimated GFR (Cockcroft-Gault) 96.7 Glucose Level 121 mg/dL (70-99) Calcium Level 7.7 mg/dL (8.5-10.1) Magnesium Level 1.7 mg/dL (1.8-2.4) Test 06/11/17 11:34 06/11/17 16:41 06/11/17 20:33 06/12/17 06:00 Glucose (Fingerstick) 174 mg/dL (70-99) 213 mg/dL (70-99) 173 mg/dL (70-99) White Blood Count 14.3 x10^3/uL (4.0-11.0) Red Blood Count 3.40 x10^6/uL (4.30-5.70) Hemoglobin 9.8 g/dL (13.0-17.5) Hematocrit 29.1 % (39.0-53.0) Mean Corpuscular Volume 86 fL (79-100) Mean Corpuscular Hemoglobin 29 pg (25-35) Mean Corpuscular Hemoglobin Concent 34 g/dL (31-37) Red Cell Distribution Width 14.5 % (11.5-14.5) Platelet Count 327 x10^3/uL (140-400) Neutrophils (%) (Auto) 79 % (31-73) Lymphocytes (%) (Auto) 10 % (24-48) Monocytes (%) (Auto) 8 % (0-9) Eosinophils (%) (Auto) 3 % (0-3) Basophils (%) (Auto) 0 % (0-3) Neutrophils # (Auto) 11.2 x10^3uL (1.8-7.7) Lymphocytes # (Auto) 1.5 x10^3/uL (1.0-4.8) Monocytes # (Auto) 1.1 x10^3/uL (0.0-1.1) Eosinophils # (Auto) 0.5 x10^3/uL (0.0-0.7) Basophils # (Auto) 0.0 x10^3/uL (0.0-0.2) Sodium Level 137 mmol/L (136-145) Potassium Level 3.9 mmol/L (3.5-5.1) Chloride Level 103 mmol/L (98-107) Carbon Dioxide Level 29 mmol/L (21-32) Anion Gap 5 (6-14) Blood Urea Nitrogen 20 mg/dL (8-26) Creatinine 0.9 mg/dL (0.7-1.3) Estimated GFR (Cockcroft-Gault) 84.4 Glucose Level 113 mg/dL (70-99) Calcium Level 7.8 mg/dL (8.5-10.1) Magnesium Level 1.7 mg/dL (1.8-2.4) Test 06/12/17 07:59 Glucose (Fingerstick) 118 mg/dL (70-99) Laboratory Tests Test 06/11/17 16:41 06/11/17 20:33 06/12/17 06:00 06/12/17 07:59 Glucose (Fingerstick) 213 mg/dL (70-99) 173 mg/dL (70-99) 118 mg/dL (70-99) White Blood Count 14.3 x10^3/uL (4.0-11.0) Red Blood Count 3.40 x10^6/uL (4.30-5.70) Hemoglobin 9.8 g/dL (13.0-17.5) Hematocrit 29.1 % (39.0-53.0) Mean Corpuscular Volume 86 fL (79-100) Mean Corpuscular Hemoglobin 29 pg (25-35) Mean Corpuscular Hemoglobin Concent 34 g/dL (31-37) Red Cell Distribution Width 14.5 % (11.5-14.5) Platelet Count 327 x10^3/uL (140-400) Neutrophils (%) (Auto) 79 % (31-73) Lymphocytes (%) (Auto) 10 % (24-48) Monocytes (%) (Auto) 8 % (0-9) Eosinophils (%) (Auto) 3 % (0-3) Basophils (%) (Auto) 0 % (0-3) Neutrophils # (Auto) 11.2 x10^3uL (1.8-7.7) Lymphocytes # (Auto) 1.5 x10^3/uL (1.0-4.8) Monocytes # (Auto) 1.1 x10^3/uL (0.0-1.1) Eosinophils # (Auto) 0.5 x10^3/uL (0.0-0.7) Basophils # (Auto) 0.0 x10^3/uL (0.0-0.2) Sodium Level 137 mmol/L (136-145) Potassium Level 3.9 mmol/L (3.5-5.1) Chloride Level 103 mmol/L (98-107) Carbon Dioxide Level 29 mmol/L (21-32) Anion Gap 5 (6-14) Blood Urea Nitrogen 20 mg/dL (8-26) Creatinine 0.9 mg/dL (0.7-1.3) Estimated GFR (Cockcroft-Gault) 84.4 Glucose Level 113 mg/dL (70-99) Calcium Level 7.8 mg/dL (8.5-10.1) Magnesium Level 1.7 mg/dL (1.8-2.4) Problem List Problems Medical Problems: (1) Abdominal pain Status: Acute (2) Elevated brain natriuretic peptide (BNP) level Status: Acute (3) Hypomagnesemia Status: Acute (4) Perforated abdominal viscus Status: Acute Assessment/Plan removed abrhams drains await bowel function Problems: MARY MARTINEZ MD 06/12/17 1454: SURGICAL PROGRESS NOTE Assessment/Plan pt seen and examined "much better" with drains out continue supportive care Problems: MINA LYNCH ATTORNEY RECRUITER Jun 12, 2017 11:59 MARY MARTINEZ MD Jun 12, 2017 14:54
[2017-06-12] MEDS: TPN PER PHARMACY MC PRN ×4 (13:07→13:31)
[2017-06-12] MEDS: MAGNESIUM OXIDE 400 MG TABLET PO SCH (13:42)
[2017-06-12 15:00] VITALS: BP 152/77
[2017-06-12 19:00] VITALS: BP 130/74
[2017-06-12] MEDS ORDERED: AMINO ACIDS IV SCH ×11 (22:00)
[2017-06-12] MEDS ORDERED: TOTAL PARENTERAL NUTRITION IV SCH ×11 (22:00)
[2017-06-12] MEDS ORDERED: [UNRECOGNIZED DRUG - OTHER] IV SCH ×11 (22:00)
[2017-06-12] MEDS ORDERED: DEXTROSE 70% IV SCH ×11 (22:00)
[2017-06-12 23:00] VITALS: BP 143/67
[2017-06-13 03:00] VITALS: BP 142/72
[2017-06-13] MEDS: oxyCODONE/APAP 10/325 1 TAB TABLET PO PRN ×5 (03:47→23:05)
[2017-06-13 06:45] LABS: BASO # 0.1 x10^3/uL (0.0-0.2); BASO % 1 % (0-3); EOS % 3 % (0-3); HEMATOCRIT 28.9 % (39.0-53.0); HEMOGLOBIN 9.8 g/dL (13.0-17.5); LYMPH # 1.5 x10^3/uL (1.0-4.8); LYMPH % 12 % (24-48); MEAN CORPUSCULAR HEMOGLOBIN 29 pg (25-35); MEAN CORPUSCULAR HGB CONC 34 g/dL (31-37); MEAN CORPUSCULAR VOLUME 86 fL (79-100); MONO % 9 % (0-9); NEUT % 75 % (31-73); PLATELET COUNT 378 x10^3/uL (140-400); RED BLOOD COUNT 3.36 x10^6/uL (4.30-5.70); RED CELL DISTRIBUTION WIDTH 13.9 % (11.5-14.5); WHITE BLOOD COUNT 11.9 x10^3/uL (4.0-11.0)
[2017-06-13 07:00] VITALS: BP 151/88
[2017-06-13 07:02] LABS: CALCIUM 8.5 mg/dL (8.5-10.1); CREATININE 0.9 mg/dL (0.7-1.3); GFR 84.4; MAGNESIUM 1.7 mg/dL (1.8-2.4); PHOSPHORUS 3.6 mg/dL (2.6-4.7); POTASSIUM 3.9 mmol/L (3.5-5.1)
--- NOTE | 2017-06-13 07:45 | PDOC ---
Infectious Disease Note Subjective Subjective Comfortable, feels strength is improving Tolerating clear liquids/pilld Pain a 2 at rest but a 4 with movement ROS ROS GEN: Denies fevers, chills, sweats HEENT: Denies blurred vision, sore throat CV: Denies chest pain RESP: Denies shortness of air, cough GI: Denies n/v/d NEURO: Denies confusion, dizziness MSK: Denies weakness, joint pain/swelling Vital Sign Vital Signs Vital Signs Date Time Temp Pulse Resp B/P (MAP) Pulse Ox O2 Delivery O2 Flow Rate FiO2 06/13/17 03:00 98.2 34 12 142/72 (95) 96 Room Air 98.2 06/12/17 10:35 2.0 Physical Exam PHYSICAL EXAM GENERAL: Propped up in bed, relaxed appearance, NAD OC/Op - clear LUNGS: Clear HEART: S1 and S2 ABD: Soft, NT to light palpation. Ostomy, pink stoma. Drain x 1. 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, no focal neurologic deficit SKIN: No rash LUE PICC - clean Labs Lab Laboratory Tests Test 06/12/17 07:59 06/12/17 11:35 06/12/17 16:39 06/12/17 20:54 Glucose (Fingerstick) 118 mg/dL (70-99) 156 mg/dL (70-99) 177 mg/dL (70-99) 151 mg/dL (70-99) Test 06/13/17 06:10 White Blood Count 11.9 x10^3/uL (4.0-11.0) Red Blood Count 3.36 x10^6/uL (4.30-5.70) Hemoglobin 9.8 g/dL (13.0-17.5) Hematocrit 28.9 % (39.0-53.0) Mean Corpuscular Volume 86 fL (79-100) Mean Corpuscular Hemoglobin 29 pg (25-35) Mean Corpuscular Hemoglobin Concent 34 g/dL (31-37) Red Cell Distribution Width 13.9 % (11.5-14.5) Platelet Count 378 x10^3/uL (140-400) Neutrophils (%) (Auto) 75 % (31-73) Lymphocytes (%) (Auto) 12 % (24-48) Monocytes (%) (Auto) 9 % (0-9) Eosinophils (%) (Auto) 3 % (0-3) Basophils (%) (Auto) 1 % (0-3) Neutrophils # (Auto) 8.9 x10^3uL (1.8-7.7) Lymphocytes # (Auto) 1.5 x10^3/uL (1.0-4.8) Monocytes # (Auto) 1.1 x10^3/uL (0.0-1.1) Eosinophils # (Auto) 0.4 x10^3/uL (0.0-0.7) Basophils # (Auto) 0.1 x10^3/uL (0.0-0.2) Sodium Level 137 mmol/L (136-145) Potassium Level 3.9 mmol/L (3.5-5.1) Chloride Level 102 mmol/L (98-107) Carbon Dioxide Level 30 mmol/L (21-32) Anion Gap 5 (6-14) Blood Urea Nitrogen 22 mg/dL (8-26) Creatinine 0.9 mg/dL (0.7-1.3) Estimated GFR (Cockcroft-Gault) 84.4 Glucose Level 121 mg/dL (70-99) Calcium Level 8.5 mg/dL (8.5-10.1) Phosphorus Level 3.6 mg/dL (2.6-4.7) Magnesium Level 1.7 mg/dL (1.8-2.4) Objective Assessment Perforated viscus with fecal peritonitis, E. 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 S/p 2 drains removed 06/12 Abdominal pain, better Respiratory failure Chronic back pain HTN Leukocytosis, ? steroids - better Plan Plan of Care D/c Rocephin and begin Cefpodoxime Cont Flagyl but po F/u labs PT/OT THALIA MORALES MD Jun 13, 2017 07:45
[2017-06-13] MEDS: hydroCHLOROthiazide 25 MG TABLET PO SCH (08:33)
[2017-06-13] MEDS: POTASSIUM CHLORIDE 20 MEQ TABLET.ER. PO SCH (08:33)
[2017-06-13] MEDS: METOPROLOL SUCC 24HR ER 100 MG TAB.ER.24H. PO SCH (08:33)
[2017-06-13] MEDS: metroNIDAZOLE 500 MG TABLET PO SCH ×2 (08:34→23:05)
[2017-06-13] MEDS: MAGNESIUM OXIDE 400 MG TABLET PO SCH (08:34)
[2017-06-13] MEDS: LISINOPRIL 10 MG TABLET PO SCH (08:34)
[2017-06-13] MEDS: CEFPODOXIME PROXETIL 100 MG TABLET. PO SCH ×2 (08:34→22:30)
[2017-06-13] MEDS: POTASSIUM PHOSPHATE,MONOBASIC 500 MG TABLET. PO SCH ×2 (08:35→22:30)
[2017-06-13] MEDS: LIDOCAINE (700MG/PATCH) PATCH. TD SCH (08:35)
[2017-06-13] MEDS: DICLOFENAC SODIUM 1% TOPICAL GEL 100GM TUBE. TP SCH ×2 (08:47→21:00)
[2017-06-13] MEDS ORDERED: predniSONE 20 MG TABLET PO SCH (09:00)
[2017-06-13] MEDS ORDERED: LISINOPRIL 10 MG TABLET PO ONE ×2 (09:30→14:45)
[2017-06-13 11:00] VITALS: BP 92/55
--- NOTE | 2017-06-13 11:18 | PDOC ---
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, fecal peritonitis - off pourer pump Persistent hypomagnesemia HTN HLD NEW onset afib with RVR, SINus now hypokalemia, corrected Elcoholism, hx DESTINEE, dehydration, vasomotor mild malnutrition HYPophosphatemia, corrected Acute on chronic sciatica History of Present Illness History of Present Illness Wants to go home today but after discussion with GS - no flatus yet from GUT hence no dc today Lytes better BP high side Both Lefta nd RT ambersom drains out GONZALES drain is the one that remains only Plan: INc lisinopril to 10 PO qD DIet per gS NOt ready for dc till gets flatus from GUT (bot from ostomy) Kostas Rosales and RN miguel angel Vitals Vitals Vital Signs Date Time Temp Pulse Resp B/P (MAP) Pulse Ox O2 Delivery O2 Flow Rate FiO2 06/13/17 08:35 97 Room Air 2.0 06/13/17 08:34 79 151/88 06/13/17 07:00 99.1 18 99.1 Physical Exam Physical Exam General: Alert, Oriented X3, Cooperative, No acute distress Heart: Regular rate, Normal S1, Normal S2, No murmurs Lungs: Clear Abdomen: Soft, Other (drains serous, decreasing output, stoma pink) Extremities: No edema, Normal pulses Skin: No breakdown Labs LABS Laboratory Tests Test 06/12/17 11:35 06/12/17 16:39 06/12/17 20:54 06/13/17 06:10 Glucose (Fingerstick) 156 mg/dL (70-99) 177 mg/dL (70-99) 151 mg/dL (70-99) White Blood Count 11.9 x10^3/uL (4.0-11.0) Red Blood Count 3.36 x10^6/uL (4.30-5.70) Hemoglobin 9.8 g/dL (13.0-17.5) Hematocrit 28.9 % (39.0-53.0) Mean Corpuscular Volume 86 fL (79-100) Mean Corpuscular Hemoglobin 29 pg (25-35) Mean Corpuscular Hemoglobin Concent 34 g/dL (31-37) Red Cell Distribution Width 13.9 % (11.5-14.5) Platelet Count 378 x10^3/uL (140-400) Neutrophils (%) (Auto) 75 % (31-73) Lymphocytes (%) (Auto) 12 % (24-48) Monocytes (%) (Auto) 9 % (0-9) Eosinophils (%) (Auto) 3 % (0-3) Basophils (%) (Auto) 1 % (0-3) Neutrophils # (Auto) 8.9 x10^3uL (1.8-7.7) Lymphocytes # (Auto) 1.5 x10^3/uL (1.0-4.8) Monocytes # (Auto) 1.1 x10^3/uL (0.0-1.1) Eosinophils # (Auto) 0.4 x10^3/uL (0.0-0.7) Basophils # (Auto) 0.1 x10^3/uL (0.0-0.2) Sodium Level 137 mmol/L (136-145) Potassium Level 3.9 mmol/L (3.5-5.1) Chloride Level 102 mmol/L (98-107) Carbon Dioxide Level 30 mmol/L (21-32) Anion Gap 5 (6-14) Blood Urea Nitrogen 22 mg/dL (8-26) Creatinine 0.9 mg/dL (0.7-1.3) Estimated GFR (Cockcroft-Gault) 84.4 Glucose Level 121 mg/dL (70-99) Calcium Level 8.5 mg/dL (8.5-10.1) Phosphorus Level 3.6 mg/dL (2.6-4.7) Magnesium Level 1.7 mg/dL (1.8-2.4) Test 06/13/17 07:42 Glucose (Fingerstick) 119 mg/dL (70-99) Review of Systems Review of Systems some post op ab dpain, all else is neg, no CP, SOA or emesis Assessment and Plan Assessmemt and Plan Problems Medical Problems: (1) Abdominal pain Status: Acute (2) Elevated brain natriuretic peptide (BNP) level Status: Acute (3) Hypomagnesemia Status: Acute (4) Perforated abdominal viscus Status: Acute Problems: Comment Review of Relevant I have reviewed the following items ananda (where applicable) has been applied. Labs Laboratory Tests Test 06/11/17 11:34 06/11/17 16:41 06/11/17 20:33 06/12/17 06:00 Glucose (Fingerstick) 174 mg/dL (70-99) 213 mg/dL (70-99) 173 mg/dL (70-99) White Blood Count 14.3 x10^3/uL (4.0-11.0) Red Blood Count 3.40 x10^6/uL (4.30-5.70) Hemoglobin 9.8 g/dL (13.0-17.5) Hematocrit 29.1 % (39.0-53.0) Mean Corpuscular Volume 86 fL (79-100) Mean Corpuscular Hemoglobin 29 pg (25-35) Mean Corpuscular Hemoglobin Concent 34 g/dL (31-37) Red Cell Distribution Width 14.5 % (11.5-14.5) Platelet Count 327 x10^3/uL (140-400) Neutrophils (%) (Auto) 79 % (31-73) Lymphocytes (%) (Auto) 10 % (24-48) Monocytes (%) (Auto) 8 % (0-9) Eosinophils (%) (Auto) 3 % (0-3) Basophils (%) (Auto) 0 % (0-3) Neutrophils # (Auto) 11.2 x10^3uL (1.8-7.7) Lymphocytes # (Auto) 1.5 x10^3/uL (1.0-4.8) Monocytes # (Auto) 1.1 x10^3/uL (0.0-1.1) Eosinophils # (Auto) 0.5 x10^3/uL (0.0-0.7) Basophils # (Auto) 0.0 x10^3/uL (0.0-0.2) Sodium Level 137 mmol/L (136-145) Potassium Level 3.9 mmol/L (3.5-5.1) Chloride Level 103 mmol/L (98-107) Carbon Dioxide Level 29 mmol/L (21-32) Anion Gap 5 (6-14) Blood Urea Nitrogen 20 mg/dL (8-26) Creatinine 0.9 mg/dL (0.7-1.3) Estimated GFR (Cockcroft-Gault) 84.4 Glucose Level 113 mg/dL (70-99) Calcium Level 7.8 mg/dL (8.5-10.1) Magnesium Level 1.7 mg/dL (1.8-2.4) Test 06/12/17 07:59 06/12/17 11:35 06/12/17 16:39 06/12/17 20:54 Glucose (Fingerstick) 118 mg/dL (70-99) 156 mg/dL (70-99) 177 mg/dL (70-99) 151 mg/dL (70-99) Test 06/13/17 06:10 06/13/17 07:42 White Blood Count 11.9 x10^3/uL (4.0-11.0) Red Blood Count 3.36 x10^6/uL (4.30-5.70) Hemoglobin 9.8 g/dL (13.0-17.5) Hematocrit 28.9 % (39.0-53.0) Mean Corpuscular Volume 86 fL (79-100) Mean Corpuscular Hemoglobin 29 pg (25-35) Mean Corpuscular Hemoglobin Concent 34 g/dL (31-37) Red Cell Distribution Width 13.9 % (11.5-14.5) Platelet Count 378 x10^3/uL (140-400) Neutrophils (%) (Auto) 75 % (31-73) Lymphocytes (%) (Auto) 12 % (24-48) Monocytes (%) (Auto) 9 % (0-9) Eosinophils (%) (Auto) 3 % (0-3) Basophils (%) (Auto) 1 % (0-3) Neutrophils # (Auto) 8.9 x10^3uL (1.8-7.7) Lymphocytes # (Auto) 1.5 x10^3/uL (1.0-4.8) Monocytes # (Auto) 1.1 x10^3/uL (0.0-1.1) Eosinophils # (Auto) 0.4 x10^3/uL (0.0-0.7) Basophils # (Auto) 0.1 x10^3/uL (0.0-0.2) Sodium Level 137 mmol/L (136-145) Potassium Level 3.9 mmol/L (3.5-5.1) Chloride Level 102 mmol/L (98-107) Carbon Dioxide Level 30 mmol/L (21-32) Anion Gap 5 (6-14) Blood Urea Nitrogen 22 mg/dL (8-26) Creatinine 0.9 mg/dL (0.7-1.3) Estimated GFR (Cockcroft-Gault) 84.4 Glucose Level 121 mg/dL (70-99) Calcium Level 8.5 mg/dL (8.5-10.1) Phosphorus Level 3.6 mg/dL (2.6-4.7) Magnesium Level 1.7 mg/dL (1.8-2.4) Glucose (Fingerstick) 119 mg/dL (70-99) Laboratory Tests Test 06/12/17 11:35 06/12/17 16:39 06/12/17 20:54 06/13/17 06:10 Glucose (Fingerstick) 156 mg/dL (70-99) 177 mg/dL (70-99) 151 mg/dL (70-99) White Blood Count 11.9 x10^3/uL (4.0-11.0) Red Blood Count 3.36 x10^6/uL (4.30-5.70) Hemoglobin 9.8 g/dL (13.0-17.5) Hematocrit 28.9 % (39.0-53.0) Mean Corpuscular Volume 86 fL (79-100) Mean Corpuscular Hemoglobin 29 pg (25-35) Mean Corpuscular Hemoglobin Concent 34 g/dL (31-37) Red Cell Distribution Width 13.9 % (11.5-14.5) Platelet Count 378 x10^3/uL (140-400) Neutrophils (%) (Auto) 75 % (31-73) Lymphocytes (%) (Auto) 12 % (24-48) Monocytes (%) (Auto) 9 % (0-9) Eosinophils (%) (Auto) 3 % (0-3) Basophils (%) (Auto) 1 % (0-3) Neutrophils # (Auto) 8.9 x10^3uL (1.8-7.7) Lymphocytes # (Auto) 1.5 x10^3/uL (1.0-4.8) Monocytes # (Auto) 1.1 x10^3/uL (0.0-1.1) Eosinophils # (Auto) 0.4 x10^3/uL (0.0-0.7) Basophils # (Auto) 0.1 x10^3/uL (0.0-0.2) Sodium Level 137 mmol/L (136-145) Potassium Level 3.9 mmol/L (3.5-5.1) Chloride Level 102 mmol/L (98-107) Carbon Dioxide Level 30 mmol/L (21-32) Anion Gap 5 (6-14) Blood Urea Nitrogen 22 mg/dL (8-26) Creatinine 0.9 mg/dL (0.7-1.3) Estimated GFR (Cockcroft-Gault) 84.4 Glucose Level 121 mg/dL (70-99) Calcium Level 8.5 mg/dL (8.5-10.1) Phosphorus Level 3.6 mg/dL (2.6-4.7) Magnesium Level 1.7 mg/dL (1.8-2.4) Test 06/13/17 07:42 Glucose (Fingerstick) 119 mg/dL (70-99) Microbiology 06/06/17 Anaerobic/Aerobic Culture - Final, Complete 06/06/17 Anaerobic Culture Result 1 (AISSATOU) - Final, Complete 06/06/17 Anaerobic Culture Result 2 (AISSATOU) - Final, Complete 06/06/17 Aerobic Culture - Final, Complete 06/06/17 Aerobic Culture Result 1 (AISSATOU) - Final, Complete 06/06/17 Aerobic Culture Result 2 (AISSATOU) - Final, Complete 06/06/17 Antimicrobic Susceptibility - Final, Complete Medications Current Medications Sodium Chloride 1,000 ml @ 1,000 mls/hr 1X ONCE IV Last administered on 08:22; Start 06/06/17 at 08:30; Stop 06/06/17 at 09:29; Status DC Ondansetron HCl (Zofran) 8 mg 1X ONCE IV Last administered on 06/06/17 08:23 ; Start 06/06/17 at 08:30; Stop 06/06/17 at 08:31; Status DC Morphine Sulfate 5 mg 1X ONCE IV Last administered on 06/06/17 08:29; Start 06/06/17 at 08:30; Stop 06/06/17 at 08:31; Status DC Potassium Chloride (Klor-Con) 40 meq 1X ONCE PO Last administered on 10/9/ 17at 09:31; Start 06/06/17 at 08:30; Stop 06/06/17 at 08:31; Status DC Potassium Chloride/Sodium Chloride 1,000 ml @ 250 mls/hr 1X ONCE IV Last administered on 06/06/17 09:36; Start 06/06/17 at 08:30; Stop 06/06/17 at 12:29 ; Status DC Iohexol (Omnipaque 300 Mg/ml) 60 ml 1X ONCE IV Last administered on 06/06/17 08:51; Start 06/06/17 at 08:45; Stop 06/06/17 at 08:46; Status DC Magnesium Oxide (Magnesium Oxide) 800 mg 1X STAT PO Last administered on 09:31; Start 06/06/17 at 08:37; Stop 06/06/17 at 08:40; Status DC Info (Do NOT chart on this entry -- for MONITORING) 1 each PRN DAILY PRN MC SEE COMMENTS; Start 06/06/17 at 08:45; Stop 06/08/17 at 08:44; Status DC Metronidazole 100 ml @ 100 mls/hr 1X ONCE IV Last administered on 06/06/17 10:00; Start 06/06/17 at 09:30; Stop 06/06/17 at 10:29; Status DC Levofloxacin/ Dextrose (Levaquin Per Pharmacy) 1 each PRN DAILY PRN MC SEE COMMENTS; Start 06/06/17 at 09:30; Stop 06/08/17 at 09:20; Status DC Levofloxacin/ Dextrose 100 ml @ 100 mls/hr 1X ONCE IV ; Start 06/06/17 at 09: 30; Stop 06/06/17 at 10:29; Status DC Levofloxacin/ Dextrose 100 ml @ 100 mls/hr Q24H IV Last administered on 11:36; Start 06/07/17 at 10:00; Stop 06/08/17 at 08:03; Status DC Rocuronium [place] (Zemuron) 100 mg STK-MED ONCE .ROUTE ; Start 06/06/17 at 10: 28; Stop 06/06/17 at 10:29; Status DC Fentanyl Citrate (Fentanyl 5ml Vial) 250 mcg STK-MED ONCE .ROUTE ; Start at 10:28; Stop 06/06/17 at 10:29; Status DC Propofol 20 ml @ As Directed STK-MED ONCE IV ; Start 06/06/17 at 10:32; Stop at 10:33; Status DC Lidocaine HCl (Lidocaine Pf 2% Vial) 5 ml STK-MED ONCE .ROUTE ; Start 06/06/17 at 10:32; Stop 06/06/17 at 10:33; Status DC Ondansetron HCl (Zofran) 4 mg STK-MED ONCE .ROUTE ; Start 06/06/17 at 10:33; Stop 06/06/17 at 10:34; Status DC Dexamethasone Sodium Phosphate (Decadron) 20 mg STK-MED ONCE .ROUTE ; Start 06/06/17 at 10:33; Stop 06/06/17 at 10:34; Status DC Multivitamins 10 ml/Folic Acid 1 mg/Thiamine HCl 100 mg/Ringer's Solution 1, 011.2 ml @ 1,000 mls/ hr 1X ONCE IV ; Start 06/06/17 at 11:30; Stop 06/06/17 at 12:30; Status DC Fentanyl Citrate (Fentanyl 2ml Vial) 25 mcg PRN Q5MIN PRN IV MILD PAIN; Start 06/06/17 at 11:45; Stop 06/07/17 at 11:44; Status DC Fentanyl Citrate (Fentanyl 2ml Vial) 50 mcg PRN Q5MIN PRN IV MODERATE PAIN Last administered on 06/06/17 17:24; Start 06/06/17 at 11:45; Stop 06/07/17 at 11:44; Status DC Morphine Sulfate 1 mg PRN Q10MIN PRN IV SEVERE PAIN Last administered on t 15:38; Start 06/06/17 at 11:45; Stop 06/07/17 at 11:44; Status DC Ringer's Solution 1,000 ml @ 30 mls/hr Q24H IV ; Start 06/06/17 at 11:39; Stop 06/06/17 at 23:38; Status DC Lidocaine HCl (Xylocaine-Mpf 1% Vial) 2 ml 1X PRN PRN ID IV START; Start at 11:45; Stop 06/07/17 at 11:44; Status DC Hydromorphone HCl (Dilaudid) 0.5 mg PRN Q10MIN PRN IV SEV PAIN, Second choice; Start 06/06/17 at 11:45; Stop 06/07/17 at 11:44; Status DC Prochlorperazine Edisylate (Compazine) 5 mg PACU PRN PRN IV NAUSEA, MRX1; Start 06/06/17 at 11:45; Stop 06/07/17 at 11:44; Status DC Phenylephrine HCl (Pedro-Synephrine Inj) 10 mg STK-MED ONCE .ROUTE ; Start at 11:58; Stop 06/06/17 at 11:59; Status DC Sodium Chloride (Sodium Chloride) 50 ml STK-MED ONCE IJ ; Start 06/06/17 at 11: 58; Stop 06/06/17 at 11:59; Status DC Sevoflurane (Ultane) 90 ml STK-MED ONCE IH ; Start 06/06/17 at 13:52; Stop 06/06 at 13:53; Status DC Neostigmine Methylsulfate 5 mg STK-MED ONCE .ROUTE ; Start 06/06/17 at 13:52; Stop 06/06/17 at 13:53; Status DC Glycopyrrolate (Robinul) 1 mg STK-MED ONCE .ROUTE ; Start 06/06/17 at 13:52; Stop 06/06/17 at 13:53; Status DC Fentanyl Citrate (Fentanyl 2ml Vial) 100 mcg STK-MED ONCE .ROUTE ; Start at 14:18; Stop 06/06/17 at 14:19; Status DC Diphenhydramine HCl (Benadryl) 25 mg PRN Q6HRS PRN IV ITCHING; Start 06/06/17 at 14:30 Enoxaparin Sodium (Lovenox 40mg Syringe) 40 mg Q24H SQ Last administered on 15:00; Start 06/06/17 at 15:00; Stop 06/06/17 at 15:41; Status DC Sodium Chloride (Normal Saline Flush) 3 ml QSHIFT PRN IV AFTER MEDS AND BLOOD DRAWS; Start 06/06/17 at 14:30 Potassium Chloride/Sodium Chloride 1,000 ml @ 100 mls/hr Q10H IV Last administered on 06/07/17 20:00; Start 06/06/17 at 15:00; Stop 06/08/17 at 09: 20; Status DC Hydromorphone HCl 30 ml @ 0 mls/hr CONT PRN PRN IV PROTOCOL; Start 06/06/17 at 14:30; Stop 06/06/17 at 17:30; Status DC Ondansetron HCl (Zofran) 4 mg PRN Q6HRS PRN IV NAUESA, 1ST CHOICE; Start at 14:30 Epinephrine (S2 Racepinephrine) 0.5 ml STK-MED ONCE .ROUTE ; Start 06/06/17 at 14:35; Stop 06/06/17 at 14:36; Status DC Propofol 50 ml @ As Directed STK-MED ONCE IV ; Start 06/06/17 at 14:38; Stop at 14:39; Status DC Succinylcholine Chloride (Anectine) 200 mg STK-MED ONCE .ROUTE ; Start 06/06/17 at 14:40; Stop 06/06/17 at 14:41; Status DC Epinephrine (S2 Racepinephrine) 0.5 ml 1X ONCE NEB Last administered on 14:43; Start 06/06/17 at 14:36; Stop 06/06/17 at 14:43; Status DC Midazolam HCl (Versed) 2 mg STK-MED ONCE .ROUTE ; Start 06/06/17 at 14:48; Stop 06/06/17 at 14:49; Status DC Propofol 100 ml @ 0 mls/hr CONT PRN IV SEE I/O RECORD; Start 06/06/17 at 15:15 ; Stop 06/08/17 at 09:20; Status DC Propofol 50 ml @ As Directed STK-MED ONCE IV ; Start 06/06/17 at 15:03; Stop at 15:04; Status DC Dexamethasone Sodium Phosphate (Decadron) 12 mg 1X ONCE IV Last administered on 06/06/17 15:09; Start 06/06/17 at 15:00; Stop 06/06/17 at 15:06; Status DC Dexamethasone Sodium Phosphate (Decadron) 4 mg STK-MED ONCE .ROUTE ; Start 06/06 at 15:05; Stop 06/06/17 at 15:06; Status DC Propofol 50 ml @ 0 mls/hr 1X ONCE IV Last administered on 06/06/17 15:02; Start 06/06/17 at 15:15; Stop 06/06/17 at 15:16; Status DC Succinylcholine Chloride (Anectine) 200 mg 1X ONCE IV ; Start 06/06/17 at 15:15 ; Stop 06/06/17 at 15:16; Status DC Midazolam HCl (Versed) 2 mg 1X ONCE IV ; Start 06/06/17 at 15:15; Stop at 15:16; Status DC Cellulose 1 each STK-MED ONCE .ROUTE Last administered on 06/06/17 13:35; Start 06/06/17 at 14:19; Stop 06/06/17 at 15:20; Status DC Enoxaparin Sodium (Lovenox 40mg Syringe) 40 mg Q24H SQ Last administered on 08:48; Start 06/07/17 at 09:00; Stop 06/12/17 at 10:16; Status DC Metronidazole 100 ml @ 100 mls/hr Q12HR IV Last administered on 06/12/17 21: 32; Start 06/06/17 at 21:00; Stop 06/13/17 at 07:45; Status DC Multivitamins 10 ml/Folic Acid 1 mg/Thiamine HCl 100 mg/Dextrose/ Lactated Ringer's 1,011.2 ml @ 100 mls/ hr DAILY IV Last administered on 06/07/17 09: 21; Start 06/07/17 at 09:00; Stop 06/08/17 at 08:06; Status DC Lorazepam (Ativan) 2 mg PRN Q4HRS PRN IV ANXIETY / AGITATION; Start 06/06/17 at 15:45; Stop 06/12/17 at 10:16; Status DC Famotidine (Pepcid) 20 mg BID IVP Last administered on 06/08/17 11:18; Start 06/06/17 at 21:00; Stop 06/09/17 at 07:53; Status DC Morphine Sulfate 2 mg PRN Q2HR PRN IV PAIN Last administered on 06/10/17 22: 59; Start 06/06/17 at 15:45 Morphine Sulfate 4 mg PRN Q2HR PRN IV PAIN Last administered on 06/11/17 08: 31; Start 06/06/17 at 15:45 Ondansetron HCl (Zofran) 4 mg PRN Q6HRS PRN IV NAUSEA/VOMITING; Start 06/06/17 at 15:45; Stop 06/06/17 at 15:45; Status DC Fentanyl Citrate 30 ml @ 0 mls/hr CONT PRN IV PROTOCOL Last administered on 02:54; Start 06/06/17 at 17:30; Stop 06/07/17 at 10:39; Status DC Midazolam HCl 100 ml @ 0 mls/hr CONT PRN IV SEE I/O RECORD; Start 06/06/17 at 23:00; Stop 06/08/17 at 09:20; Status DC Sodium Chloride 1,000 ml @ 1,000 mls/hr 1X ONCE IV Last administered on 23:34; Start 06/06/17 at 23:00; Stop 06/06/17 at 23:59; Status DC Magnesium Sulfate/ Dextrose 50 ml @ 25 mls/hr 1X ONCE IV Last administered on 06/07/17 09:28; Start 06/07/17 at 08:15; Stop 06/07/17 at 10:14; Status DC Info 1 each PRN DAILY PRN MC SEE COMMENTS Last administered on 06/12/17 13:31 ; Start 06/07/17 at 09:30 Methylprednisolone Sodium Succinate (SOLU-Medrol 125MG VIAL) 50 mg DAILY IV Last administered on 06/12/17 08:47; Start 06/07/17 at 11:00; Stop 06/12/17 at 10:16; Status DC Hydromorphone HCl 30 ml @ 0 mls/hr CONT PRN PRN IV PROTOCOL Last administered on 06/07/17 11:16; Start 06/07/17 at 10:45; Stop 06/09/17 at 08:57; Status DC Sodium Chloride 90 meq/Potassium Chloride 50 meq/ Potassium Phosphate 13.6 mmol/ Magnesium Sulfate 10 meq/ Calcium Gluconate 10 meq/ Multivitamins 10 ml/Chromium / Copper/Manganese/ Seleni/Zn 1 ml/ Total Parenteral Nutrition/Amino Acids/ Dextrose/ Fat Emulsion Intravenous 1,512 ml @ 63 mls/hr TPN CONT IV Last administered on 06/07/17 22:04; Start 06/07/17 at 22:00; Stop 06/08/17 at 21 :59; Status DC Influenza Virus Vaccine Quadrival (Fluarix Quad [id number] Syringe) 0.5 ml ONCE ONCE VAX IM Last administered on 06/08/17 13:23; Start 06/07/17 at 16:15; Stop 06/07/17 at 16:35; Status DC Pneumococcal Polyvalent Vaccine (Do NOT chart on this placeholder) 1 each PRN 1X PRN MC SEE COMMENTS; Start 06/07/17 at 16:45; Status UNV Pneumococcal Polyvalent Vaccine (Pneumovax 23) 0.5 ml ONCE ONCE VAX IM Last administered on 06/08/17 13:25; Start 06/07/17 at 17:00; Stop 06/07/17 at 17 :01; Status DC Ceftriaxone Sodium 1 gm/ Sodium Chloride 50 ml @ 100 mls/hr Q24H IV Last administered on 06/12/17 08:45; Start 06/08/17 at 09:00; Stop 06/13/17 at 07 :45; Status DC Sodium Phosphate 20 mmol/Dextrose 256.6667 ml @ 64.167 m... 1X ONCE IV Last administered on 06/08/17 08:58; Start 06/08/17 at 09:00; Stop 06/08/17 at 12 :59; Status DC Multi-Ingred Cream/Lotion/Oil/ Oint (Artificial Tears Eye Oint) 1 juvenal PRN Q1HR PRN OU DRY EYE; Start 06/08/17 at 09:15 Sodium Chloride 90 meq/Potassium Chloride 40 meq/ Potassium Phosphate 17 mmol/ Magnesium Sulfate 10 meq/Calcium Gluconate 10 meq/ Multivitamins 10 ml/Chromium / Copper/Manganese/ Seleni/Zn 1 ml/ Total Parenteral Nutrition/Amino Acids/ Dextrose/ Fat Emulsion Intravenous 1,512 ml @ 63 mls/hr TPN CONT IV Last administered on 06/08/17 22:42; Start 06/08/17 at 22:00; Stop 06/09/17 at 21 :59; Status DC Diclofenac Sodium (Voltaren) 1 juvenal BID TP Last administered on 06/12/17 21:00 ; Start 06/08/17 at 21:00 Oxycodone/ Acetaminophen (Percocet 10/325) 1 tab PRN Q4HRS PRN PO pain Last administered on 06/13/17 08:35; Start 06/09/17 at 08:00 Magnesium Sulfate/ Dextrose 50 ml @ 25 mls/hr 1X ONCE IV Last administered on 06/09/17 09:31; Start 06/09/17 at 08:00; Stop 06/09/17 at 09:59; Status DC Potassium Phosphate (K-Phos Original) 500 mg BID PO Last administered on 08:35; Start 06/09/17 at 09:00 Lidocaine (Lidoderm) 1 patch DAILY TD Last administered on 06/09/17 09:36; Start 06/09/17 at 09:00; Stop 06/10/17 at 20:50; Status DC Potassium Phosphate 13.6 mmol/Sodium Chloride 104.5333 ml @ 52.267 m... 1X ONCE IV Last administered on 06/09/17 13:51; Start 06/09/17 at 13:30; Stop 06/09/17 at 15:29; Status DC Sodium Chloride 40 meq/Sodium Acetate 50 meq/ Potassium Chloride 40 meq/ Potassium Phosphate 20 mmol/ Magnesium Sulfate 15 meq/Calcium Gluconate 10 meq/ Multivitamins 10 ml/Chromium/ Copper/Manganese/ Seleni/Zn 1 ml/ Total Parenteral Nutrition/Amino Acids/Dextrose/ Fat Emulsion Intravenous 1,512 ml @ 63 mls/hr TPN CONT IV Last administered on 06/09/17 22:11; Start 06/09/17 at 22:00; Stop 06/10/17 at 21:59; Status DC Potassium Chloride (Klor-Con) 40 meq 1X ONCE PO Last administered on 10:40; Start 06/10/17 at 09:30; Stop 06/10/17 at 09:31; Status DC Potassium Chloride (Klor-Con) 20 meq [id number] PO Last administered on 08:33; Start 06/11/17 at 08:00 Magnesium Sulfate/ Dextrose 50 ml @ 25 mls/hr 1X ONCE IV Last administered on 06/10/17 10:38; Start 06/10/17 at 10:00; Stop 06/10/17 at 11:59; Status DC Sodium Chloride 40 meq/Sodium Acetate 50 meq/ Potassium Acetate 60 meq/ Potassium Phosphate 18 mmol/ Magnesium Sulfate 18 meq/Calcium Gluconate 10 meq/ Multivitamins 10 ml/Chromium/ Copper/Manganese/ Seleni/Zn 1 ml/ Total Parenteral Nutrition/Amino Acids/Dextrose/ Fat Emulsion Intravenous 1,512 ml @ 63 mls/hr TPN CONT IV Last administered on 06/10/17 21:43; Start 06/10/17 at 22:00; Stop 06/11/17 at 22:00; Status DC Lidocaine (Lidoderm) 1 patch QHS TD Last administered on 06/10/17 21:37; Start 06/10/17 at 21:00; Stop 06/12/17 at 05:01; Status DC Magnesium Sulfate/ Dextrose 100 ml @ 25 mls/hr 1X ONCE IV Last administered on 06/11/17 11:22; Start 06/11/17 at 09:00; Stop 06/11/17 at 12:59; Status DC Lisinopril (Prinivil) 10 mg DAILY PO Last administered on 06/13/17 08:34; Start 06/11/17 at 13:00; Stop 06/13/17 at 09:19; Status DC Metoprolol Succinate (Toprol Xl) 100 mg DAILY PO Last administered on 08:33; Start 06/11/17 at 13:00 Hydrochlorothiazide (Hydrodiuril) 25 mg DAILY PO Last administered on 08:33; Start 06/11/17 at 13:00 Sodium Chloride 40 meq/Sodium Acetate 50 meq/ Potassium Acetate 60 meq/ Potassium Phosphate 18 mmol/ Magnesium Sulfate 18 meq/Calcium Gluconate 10 meq/ Multivitamins 10 ml/Chromium/ Copper/Manganese/ Seleni/Zn 1 ml/ Total Parenteral Nutrition/Amino Acids/Dextrose/ Fat Emulsion Intravenous 1,512 ml @ 63 mls/hr TPN CONT IV Last administered on 06/11/17 21:43; Start 06/11/17 at 22:00; Stop 06/12/17 at 21:59; Status DC Lidocaine (Lidoderm) 1 patch DAILY TD Last administered on 06/13/17 08:35; Start 06/12/17 at 09:00 Hydralazine HCl (Apresoline Inj) 10 mg PRN Q4HRS PRN IVP ELEVATED BP, SEE COMMENTS; Start 06/12/17 at 09:00 Magnesium Sulfate/ Dextrose 100 ml @ 25 mls/hr 1X ONCE IV Last administered on 06/12/17 09:53; Start 06/12/17 at 09:30; Stop 06/12/17 at 13:29; Status DC Magnesium Oxide (Magnesium Oxide) 400 mg DAILY PO Last administered on 08:34; Start 06/12/17 at 09:30 Lorazepam (Ativan) 1 mg PRN Q4HRS PRN IV ANXIETY / AGITATION; Start 06/12/17 at 10:15 Alprazolam (Xanax) 0.5 mg PRN Q8HRS PRN PO ANXIETY / AGITATION; Start at 10:15 Prednisone (Prednisone) 20 mg DAILY PO Last administered on 06/13/17 08:34; Start 06/13/17 at 09:00 Sodium Chloride 60 meq/Sodium Acetate 50 meq/ Potassium Acetate 60 meq/ Potassium Phosphate 18 mmol/ Magnesium Sulfate 27 meq/Calcium Gluconate 10 meq/ Multivitamins 10 ml/Chromium/ Copper/Manganese/ Seleni/Zn 1 ml/ Total Parenteral Nutrition/Amino Acids/Dextrose/ Fat Emulsion Intravenous 1,512 ml @ 63 mls/hr TPN CONT IV Last administered on 06/12/17 21:33; Start 06/12/17 at 22:00; Stop 06/13/17 at 21:59 Metronidazole (Flagyl) 500 mg Q12HR PO Last administered on 06/13/17 08:34; Start 06/13/17 at 09:00 Cefpodoxime Proxetil (Vantin) 200 mg BID PO Last administered on 06/13/17 08: 34; Start 06/13/17 at 09:00 Lisinopril (Prinivil) 20 mg DAILY PO ; Start 06/14/17 at 09:00 Lisinopril (Prinivil) 10 mg 1X ONCE PO ; Start 06/13/17 at 09:30; Stop at 09:31; Status DC Active Scripts Active Reported [prednisone taper] Metoprolol Succinate ( Xl ) (Metoprolol Succinate) 100 Mg Tab.er.24h 1 Tab PO DAILY Lisinopril 10 Mg Tablet 1 Tab PO DAILY Hydrochlorothiazide Tablet (Hydrochlorothiazide) 50 Mg Tablet 25 Tab PO DAILY Vitals/I & O Vital Sign - Last 24 Hours 06/12/17 06/12/17 06/12/17 06/12/17 13:42 15:00 19:00 20:00 Temp 98.8 99.2 98.8 99.2 Pulse 57 61 Resp 16 14 B/P (MAP) 152/77 (102) 130/74 (92) Pulse Ox 92 94 96 O2 Delivery Room Air Room Air Room Air Room Air 06/12/17 06/13/17 06/13/17 06/13/17 23:00 03:00 07:00 08:33 Temp 98.1 98.2 99.1 98.1 98.2 99.1 Pulse 61 34 79 79 Resp 16 12 18 B/P (MAP) 143/67 (92) 142/72 (95) 151/88 (109) 151/88 Pulse Ox 97 96 97 O2 Delivery Room Air Room Air Room Air 06/13/17 06/13/17 08:34 08:35 Pulse 79 B/P (MAP) 151/88 Pulse Ox 97 O2 Delivery Room Air O2 Flow Rate 2.0 TAMMY LEPE MD Jun 13, 2017 11:18
--- NOTE | 2017-06-13 11:32 | PDOC ---
SURGICAL PROGRESS NOTE Subjective tolerating diet up in chair pain with activity Vital Signs Vital Signs Date Time Temp Pulse Resp B/P (MAP) Pulse Ox O2 Delivery O2 Flow Rate FiO2 06/13/17 08:35 97 Room Air 2.0 06/13/17 08:34 79 151/88 06/13/17 07:00 99.1 18 99.1 General: Alert, Oriented X3, Cooperative, No acute distress Abdomen: Soft, Other (incision c/d/i, no erythema, GONZALES serosang, stoma pink, small amount of hayes drainage in ostomy ) Labs Laboratory Tests Test 06/11/17 11:34 06/11/17 16:41 06/11/17 20:33 06/12/17 06:00 Glucose (Fingerstick) 174 mg/dL (70-99) 213 mg/dL (70-99) 173 mg/dL (70-99) White Blood Count 14.3 x10^3/uL (4.0-11.0) Red Blood Count 3.40 x10^6/uL (4.30-5.70) Hemoglobin 9.8 g/dL (13.0-17.5) Hematocrit 29.1 % (39.0-53.0) Mean Corpuscular Volume 86 fL (79-100) Mean Corpuscular Hemoglobin 29 pg (25-35) Mean Corpuscular Hemoglobin Concent 34 g/dL (31-37) Red Cell Distribution Width 14.5 % (11.5-14.5) Platelet Count 327 x10^3/uL (140-400) Neutrophils (%) (Auto) 79 % (31-73) Lymphocytes (%) (Auto) 10 % (24-48) Monocytes (%) (Auto) 8 % (0-9) Eosinophils (%) (Auto) 3 % (0-3) Basophils (%) (Auto) 0 % (0-3) Neutrophils # (Auto) 11.2 x10^3uL (1.8-7.7) Lymphocytes # (Auto) 1.5 x10^3/uL (1.0-4.8) Monocytes # (Auto) 1.1 x10^3/uL (0.0-1.1) Eosinophils # (Auto) 0.5 x10^3/uL (0.0-0.7) Basophils # (Auto) 0.0 x10^3/uL (0.0-0.2) Sodium Level 137 mmol/L (136-145) Potassium Level 3.9 mmol/L (3.5-5.1) Chloride Level 103 mmol/L (98-107) Carbon Dioxide Level 29 mmol/L (21-32) Anion Gap 5 (6-14) Blood Urea Nitrogen 20 mg/dL (8-26) Creatinine 0.9 mg/dL (0.7-1.3) Estimated GFR (Cockcroft-Gault) 84.4 Glucose Level 113 mg/dL (70-99) Calcium Level 7.8 mg/dL (8.5-10.1) Magnesium Level 1.7 mg/dL (1.8-2.4) Test 06/12/17 07:59 06/12/17 11:35 06/12/17 16:39 06/12/17 20:54 Glucose (Fingerstick) 118 mg/dL (70-99) 156 mg/dL (70-99) 177 mg/dL (70-99) 151 mg/dL (70-99) Test 06/13/17 06:10 06/13/17 07:42 White Blood Count 11.9 x10^3/uL (4.0-11.0) Red Blood Count 3.36 x10^6/uL (4.30-5.70) Hemoglobin 9.8 g/dL (13.0-17.5) Hematocrit 28.9 % (39.0-53.0) Mean Corpuscular Volume 86 fL (79-100) Mean Corpuscular Hemoglobin 29 pg (25-35) Mean Corpuscular Hemoglobin Concent 34 g/dL (31-37) Red Cell Distribution Width 13.9 % (11.5-14.5) Platelet Count 378 x10^3/uL (140-400) Neutrophils (%) (Auto) 75 % (31-73) Lymphocytes (%) (Auto) 12 % (24-48) Monocytes (%) (Auto) 9 % (0-9) Eosinophils (%) (Auto) 3 % (0-3) Basophils (%) (Auto) 1 % (0-3) Neutrophils # (Auto) 8.9 x10^3uL (1.8-7.7) Lymphocytes # (Auto) 1.5 x10^3/uL (1.0-4.8) Monocytes # (Auto) 1.1 x10^3/uL (0.0-1.1) Eosinophils # (Auto) 0.4 x10^3/uL (0.0-0.7) Basophils # (Auto) 0.1 x10^3/uL (0.0-0.2) Sodium Level 137 mmol/L (136-145) Potassium Level 3.9 mmol/L (3.5-5.1) Chloride Level 102 mmol/L (98-107) Carbon Dioxide Level 30 mmol/L (21-32) Anion Gap 5 (6-14) Blood Urea Nitrogen 22 mg/dL (8-26) Creatinine 0.9 mg/dL (0.7-1.3) Estimated GFR (Cockcroft-Gault) 84.4 Glucose Level 121 mg/dL (70-99) Calcium Level 8.5 mg/dL (8.5-10.1) Phosphorus Level 3.6 mg/dL (2.6-4.7) Magnesium Level 1.7 mg/dL (1.8-2.4) Glucose (Fingerstick) 119 mg/dL (70-99) Laboratory Tests Test 06/12/17 11:35 06/12/17 16:39 06/12/17 20:54 06/13/17 06:10 Glucose (Fingerstick) 156 mg/dL (70-99) 177 mg/dL (70-99) 151 mg/dL (70-99) White Blood Count 11.9 x10^3/uL (4.0-11.0) Red Blood Count 3.36 x10^6/uL (4.30-5.70) Hemoglobin 9.8 g/dL (13.0-17.5) Hematocrit 28.9 % (39.0-53.0) Mean Corpuscular Volume 86 fL (79-100) Mean Corpuscular Hemoglobin 29 pg (25-35) Mean Corpuscular Hemoglobin Concent 34 g/dL (31-37) Red Cell Distribution Width 13.9 % (11.5-14.5) Platelet Count 378 x10^3/uL (140-400) Neutrophils (%) (Auto) 75 % (31-73) Lymphocytes (%) (Auto) 12 % (24-48) Monocytes (%) (Auto) 9 % (0-9) Eosinophils (%) (Auto) 3 % (0-3) Basophils (%) (Auto) 1 % (0-3) Neutrophils # (Auto) 8.9 x10^3uL (1.8-7.7) Lymphocytes # (Auto) 1.5 x10^3/uL (1.0-4.8) Monocytes # (Auto) 1.1 x10^3/uL (0.0-1.1) Eosinophils # (Auto) 0.4 x10^3/uL (0.0-0.7) Basophils # (Auto) 0.1 x10^3/uL (0.0-0.2) Sodium Level 137 mmol/L (136-145) Potassium Level 3.9 mmol/L (3.5-5.1) Chloride Level 102 mmol/L (98-107) Carbon Dioxide Level 30 mmol/L (21-32) Anion Gap 5 (6-14) Blood Urea Nitrogen 22 mg/dL (8-26) Creatinine 0.9 mg/dL (0.7-1.3) Estimated GFR (Cockcroft-Gault) 84.4 Glucose Level 121 mg/dL (70-99) Calcium Level 8.5 mg/dL (8.5-10.1) Phosphorus Level 3.6 mg/dL (2.6-4.7) Magnesium Level 1.7 mg/dL (1.8-2.4) Test 06/13/17 07:42 Glucose (Fingerstick) 119 mg/dL (70-99) Problem List Problems Medical Problems: (1) Abdominal pain Status: Acute (2) Elevated brain natriuretic peptide (BNP) level Status: Acute (3) Hypomagnesemia Status: Acute (4) Perforated abdominal viscus Status: Acute Assessment/Plan POD#7--no stool yet, continue liquids, add colace Problems: MINA LYNCH [employer]PRINT [employer]ER Jun 13, 2017 11:32
[2017-06-13 15:00] VITALS: BP 146/71
--- NOTE | 2017-06-13 15:05 | PDOC ---
PULMONARY PROGRESS NOTES Subjective no sob, cough, no pain, is tired. Vitals Vital Signs Date Time Temp Pulse Resp B/P (MAP) Pulse Ox O2 Delivery O2 Flow Rate FiO2 06/13/17 14:21 96 Room Air 2.0 06/13/17 11:00 99.1 86 18 92/55 (67) 99.1 ROS: No Nausea, No Chest Pain, No Increase Cough General: Alert HEENT: Neck ROM, Other (nc at perrl ) Lungs: Clear Cardiovascular: S1, S2 Abdomen: Soft, Non-tender, Other Neuro Exam: Alert Extremities: No Edema Skin: Warm Labs Laboratory Tests Test 06/11/17 16:41 06/11/17 20:33 06/12/17 06:00 06/12/17 07:59 Glucose (Fingerstick) 213 mg/dL (70-99) 173 mg/dL (70-99) 118 mg/dL (70-99) White Blood Count 14.3 x10^3/uL (4.0-11.0) Red Blood Count 3.40 x10^6/uL (4.30-5.70) Hemoglobin 9.8 g/dL (13.0-17.5) Hematocrit 29.1 % (39.0-53.0) Mean Corpuscular Volume 86 fL (79-100) Mean Corpuscular Hemoglobin 29 pg (25-35) Mean Corpuscular Hemoglobin Concent 34 g/dL (31-37) Red Cell Distribution Width 14.5 % (11.5-14.5) Platelet Count 327 x10^3/uL (140-400) Neutrophils (%) (Auto) 79 % (31-73) Lymphocytes (%) (Auto) 10 % (24-48) Monocytes (%) (Auto) 8 % (0-9) Eosinophils (%) (Auto) 3 % (0-3) Basophils (%) (Auto) 0 % (0-3) Neutrophils # (Auto) 11.2 x10^3uL (1.8-7.7) Lymphocytes # (Auto) 1.5 x10^3/uL (1.0-4.8) Monocytes # (Auto) 1.1 x10^3/uL (0.0-1.1) Eosinophils # (Auto) 0.5 x10^3/uL (0.0-0.7) Basophils # (Auto) 0.0 x10^3/uL (0.0-0.2) Sodium Level 137 mmol/L (136-145) Potassium Level 3.9 mmol/L (3.5-5.1) Chloride Level 103 mmol/L (98-107) Carbon Dioxide Level 29 mmol/L (21-32) Anion Gap 5 (6-14) Blood Urea Nitrogen 20 mg/dL (8-26) Creatinine 0.9 mg/dL (0.7-1.3) Estimated GFR (Cockcroft-Gault) 84.4 Glucose Level 113 mg/dL (70-99) Calcium Level 7.8 mg/dL (8.5-10.1) Magnesium Level 1.7 mg/dL (1.8-2.4) Test 06/12/17 11:35 06/12/17 16:39 06/12/17 20:54 06/13/17 06:10 Glucose (Fingerstick) 156 mg/dL (70-99) 177 mg/dL (70-99) 151 mg/dL (70-99) White Blood Count 11.9 x10^3/uL (4.0-11.0) Red Blood Count 3.36 x10^6/uL (4.30-5.70) Hemoglobin 9.8 g/dL (13.0-17.5) Hematocrit 28.9 % (39.0-53.0) Mean Corpuscular Volume 86 fL (79-100) Mean Corpuscular Hemoglobin 29 pg (25-35) Mean Corpuscular Hemoglobin Concent 34 g/dL (31-37) Red Cell Distribution Width 13.9 % (11.5-14.5) Platelet Count 378 x10^3/uL (140-400) Neutrophils (%) (Auto) 75 % (31-73) Lymphocytes (%) (Auto) 12 % (24-48) Monocytes (%) (Auto) 9 % (0-9) Eosinophils (%) (Auto) 3 % (0-3) Basophils (%) (Auto) 1 % (0-3) Neutrophils # (Auto) 8.9 x10^3uL (1.8-7.7) Lymphocytes # (Auto) 1.5 x10^3/uL (1.0-4.8) Monocytes # (Auto) 1.1 x10^3/uL (0.0-1.1) Eosinophils # (Auto) 0.4 x10^3/uL (0.0-0.7) Basophils # (Auto) 0.1 x10^3/uL (0.0-0.2) Sodium Level 137 mmol/L (136-145) Potassium Level 3.9 mmol/L (3.5-5.1) Chloride Level 102 mmol/L (98-107) Carbon Dioxide Level 30 mmol/L (21-32) Anion Gap 5 (6-14) Blood Urea Nitrogen 22 mg/dL (8-26) Creatinine 0.9 mg/dL (0.7-1.3) Estimated GFR (Cockcroft-Gault) 84.4 Glucose Level 121 mg/dL (70-99) Calcium Level 8.5 mg/dL (8.5-10.1) Phosphorus Level 3.6 mg/dL (2.6-4.7) Magnesium Level 1.7 mg/dL (1.8-2.4) Test 06/13/17 07:42 Glucose (Fingerstick) 119 mg/dL (70-99) Laboratory Tests Test 06/12/17 16:39 06/12/17 20:54 06/13/17 06:10 06/13/17 07:42 Glucose (Fingerstick) 177 mg/dL (70-99) 151 mg/dL (70-99) 119 mg/dL (70-99) White Blood Count 11.9 x10^3/uL (4.0-11.0) Red Blood Count 3.36 x10^6/uL (4.30-5.70) Hemoglobin 9.8 g/dL (13.0-17.5) Hematocrit 28.9 % (39.0-53.0) Mean Corpuscular Volume 86 fL (79-100) Mean Corpuscular Hemoglobin 29 pg (25-35) Mean Corpuscular Hemoglobin Concent 34 g/dL (31-37) Red Cell Distribution Width 13.9 % (11.5-14.5) Platelet Count 378 x10^3/uL (140-400) Neutrophils (%) (Auto) 75 % (31-73) Lymphocytes (%) (Auto) 12 % (24-48) Monocytes (%) (Auto) 9 % (0-9) Eosinophils (%) (Auto) 3 % (0-3) Basophils (%) (Auto) 1 % (0-3) Neutrophils # (Auto) 8.9 x10^3uL (1.8-7.7) Lymphocytes # (Auto) 1.5 x10^3/uL (1.0-4.8) Monocytes # (Auto) 1.1 x10^3/uL (0.0-1.1) Eosinophils # (Auto) 0.4 x10^3/uL (0.0-0.7) Basophils # (Auto) 0.1 x10^3/uL (0.0-0.2) Sodium Level 137 mmol/L (136-145) Potassium Level 3.9 mmol/L (3.5-5.1) Chloride Level 102 mmol/L (98-107) Carbon Dioxide Level 30 mmol/L (21-32) Anion Gap 5 (6-14) Blood Urea Nitrogen 22 mg/dL (8-26) Creatinine 0.9 mg/dL (0.7-1.3) Estimated GFR (Cockcroft-Gault) 84.4 Glucose Level 121 mg/dL (70-99) Calcium Level 8.5 mg/dL (8.5-10.1) Phosphorus Level 3.6 mg/dL (2.6-4.7) Magnesium Level 1.7 mg/dL (1.8-2.4) Medications Active Scripts Medications Dose Route/Sig Max Daily Dose Days Date Category [prednisone taper] 06/07/17 Reported Metoprolol Succinate ( Xl ) (Metoprolol Succinate) 100 Mg Tab.er.24h 1 Tab PO DAILY 06/07/17 Reported Lisinopril 10 Mg Tablet 1 Tab PO DAILY 06/07/17 Reported Hydrochlorothiazide Tablet (Hydrochlorothiazide) 50 Mg Tablet 25 Tab PO DAILY 06/07/17 Reported Impression . IMPRESSION: 1. Acute respiratory failure, expected status post exploratory laparotomy. 2. Emergent exploratory laparotomy for perforated viscus. 3. History of alcoholism. 4. Hypertension. 5. Hyperlipidemia. 6. Severe protein malnutrition, present upon admission. 7. Hypokalemia. 8. Acute kidney injury. PREOPERATIVE DIAGNOSIS: Perforated viscus. POSTOPERATIVE DIAGNOSIS: Perforated viscus secondary to perforated sigmoid diverticulitis with fecal spillage. PROCEDURES: 1. Exploratory laparotomy. 2. Sigmoid resection with end colostomy, Eufemia's pouch. Plan . RESP STATUS IS COMPENSATED I WILL SIGN OFF POST OP MANAGEMENT CONNIE AVILA MD Jun 13, 2017 15:05
[2017-06-13] MEDS: DOCUSATE SODIUM 100 MG CAPSULE. PO SCH ×2 (16:21→22:30)
[2017-06-13] MEDS: TPN PER PHARMACY MC PRN (16:55)
[2017-06-13 19:40] VITALS: BP 119/91
[2017-06-13] MEDS ORDERED: AMINO ACIDS IV SCH ×11 (22:00)
[2017-06-13] MEDS ORDERED: [UNRECOGNIZED DRUG - OTHER] IV SCH ×11 (22:00)
[2017-06-13] MEDS ORDERED: DEXTROSE 70% IV SCH ×11 (22:00)
[2017-06-13] MEDS ORDERED: TOTAL PARENTERAL NUTRITION IV SCH ×11 (22:00)
[2017-06-13 23:54] VITALS: BP 141/68
[2017-06-14 03:00] VITALS: BP 124/79
[2017-06-14] MEDS: oxyCODONE/APAP 10/325 1 TAB TABLET PO PRN ×5 (03:16→20:10)
[2017-06-14 06:07] LABS: BASO # 0.1 x10^3/uL (0.0-0.2); BASO % 0 % (0-3); EOS % 4 % (0-3); HEMATOCRIT 27.7 % (39.0-53.0); HEMOGLOBIN 9.5 g/dL (13.0-17.5); LYMPH # 1.8 x10^3/uL (1.0-4.8); LYMPH % 15 % (24-48); MEAN CORPUSCULAR HEMOGLOBIN 30 pg (25-35); MEAN CORPUSCULAR HGB CONC 34 g/dL (31-37); MEAN CORPUSCULAR VOLUME 86 fL (79-100); MONO % 11 % (0-9); NEUT % 70 % (31-73); PLATELET COUNT 462 x10^3/uL (140-400); RED BLOOD COUNT 3.21 x10^6/uL (4.30-5.70); WHITE BLOOD COUNT 12.3 x10^3/uL (4.0-11.0)
[2017-06-14 06:29] LABS: CALCIUM 8.3 mg/dL (8.5-10.1); GFR 74.8; MAGNESIUM 1.7 mg/dL (1.8-2.4); PHOSPHORUS 3.7 mg/dL (2.6-4.7); POTASSIUM 3.9 mmol/L (3.5-5.1)
[2017-06-14 07:00] VITALS: BP 129/77
[2017-06-14] MEDS: CEFPODOXIME PROXETIL 100 MG TABLET. PO SCH ×2 (08:30→22:33)
[2017-06-14] MEDS: DOCUSATE SODIUM 100 MG CAPSULE. PO SCH ×2 (08:30→22:33)
[2017-06-14] MEDS: POTASSIUM PHOSPHATE,MONOBASIC 500 MG TABLET. PO SCH ×2 (08:30→22:33)
[2017-06-14] MEDS: MAGNESIUM OXIDE 400 MG TABLET PO SCH (08:30)
[2017-06-14] MEDS: hydroCHLOROthiazide 25 MG TABLET PO SCH (08:30)
[2017-06-14] MEDS: LISINOPRIL 20 MG TABLET PO SCH (08:31)
[2017-06-14] MEDS: METOPROLOL SUCC 24HR ER 100 MG TAB.ER.24H. PO SCH (08:31)
[2017-06-14] MEDS: metroNIDAZOLE 500 MG TABLET PO SCH ×2 (08:32→21:00)
[2017-06-14] MEDS: POTASSIUM CHLORIDE 20 MEQ TABLET.ER. PO SCH (08:32)
[2017-06-14] MEDS: DICLOFENAC SODIUM 1% TOPICAL GEL 100GM TUBE. TP SCH ×2 (08:34→21:00)
[2017-06-14] MEDS: LIDOCAINE (700MG/PATCH) PATCH. TD SCH (09:00)
--- NOTE | 2017-06-14 09:07 | PDOC ---
Infectious Disease Note Subjective Subjective Comfortable, feels strength is improving Got some rest Feels something is movigninto his ostomy Has been ambulating Pain a 2 at rest but a 4 with movement ROS ROS GEN: Denies fevers, chills, sweats HEENT: Denies blurred vision, sore throat CV: Denies chest pain RESP: Denies shortness of air, cough GI: Denies n/v NEURO: Denies confusion, dizziness MSK: Denies weakness, joint pain/swelling Vital Sign Vital Signs Vital Signs Date Time Temp Pulse Resp B/P (MAP) Pulse Ox O2 Delivery O2 Flow Rate FiO2 06/14/17 08:33 Room Air 06/14/17 08:31 58 129/77 06/14/17 07:28 94 06/14/17 04:20 16 06/14/17 03:00 98.3 98.3 06/13/17 14:21 2.0 Physical Exam PHYSICAL EXAM GENERAL: NAD, Alert HEENT: PERRL, OC/OP- clear NECK: Supple, no JVD, no LN LUNGS: Clear HEART: S1S2, no gallop, no murmur ABD: Soft, NT, no organomegaly, no rebound. GONZALES. 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, oriented x 3, no focal neurologic deficit SKIN: No rash IV: PICC clean Labs Lab Laboratory Tests Test 06/13/17 21:05 06/14/17 05:50 06/14/17 07:52 Glucose (Fingerstick) 151 mg/dL (70-99) 123 mg/dL (70-99) White Blood Count 12.3 x10^3/uL (4.0-11.0) Red Blood Count 3.21 x10^6/uL (4.30-5.70) Hemoglobin 9.5 g/dL (13.0-17.5) Hematocrit 27.7 % (39.0-53.0) Mean Corpuscular Volume 86 fL (79-100) Mean Corpuscular Hemoglobin 30 pg (25-35) Mean Corpuscular Hemoglobin Concent 34 g/dL (31-37) Red Cell Distribution Width 14.0 % (11.5-14.5) Platelet Count 462 x10^3/uL (140-400) Neutrophils (%) (Auto) 70 % (31-73) Lymphocytes (%) (Auto) 15 % (24-48) Monocytes (%) (Auto) 11 % (0-9) Eosinophils (%) (Auto) 4 % (0-3) Basophils (%) (Auto) 0 % (0-3) Neutrophils # (Auto) 8.6 x10^3uL (1.8-7.7) Lymphocytes # (Auto) 1.8 x10^3/uL (1.0-4.8) Monocytes # (Auto) 1.3 x10^3/uL (0.0-1.1) Eosinophils # (Auto) 0.5 x10^3/uL (0.0-0.7) Basophils # (Auto) 0.1 x10^3/uL (0.0-0.2) Sodium Level 136 mmol/L (136-145) Potassium Level 3.9 mmol/L (3.5-5.1) Chloride Level 103 mmol/L (98-107) Carbon Dioxide Level 30 mmol/L (21-32) Anion Gap 3 (6-14) Blood Urea Nitrogen 22 mg/dL (8-26) Creatinine 1.0 mg/dL (0.7-1.3) Estimated GFR (Cockcroft-Gault) 74.8 Glucose Level 109 mg/dL (70-99) Calcium Level 8.3 mg/dL (8.5-10.1) Phosphorus Level 3.7 mg/dL (2.6-4.7) Magnesium Level 1.7 mg/dL (1.8-2.4) Objective Assessment Perforated viscus with fecal peritonitis, E. 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 S/p 2 drains removed 06/12 Abdominal pain, better Respiratory failure Chronic back pain HTN Leukocytosis, ? steroids - clinically better Plan Plan of Care Cont Cefpodoxime/Flagyl but po monitor ostomy output F/u labs PT/OT THALIA MORALES MD Jun 14, 2017 09:07
[2017-06-14] MEDS ORDERED: MAGNESIUM HYDROXIDE 2,400 MG/30 ML ORAL.SUSP. PO ONE (09:30)
[2017-06-14] MEDS ORDERED: POLYETHYLENE GLYCOL 3350 17 GM PACKET. PO SCH (09:30)
[2017-06-14] MEDS ORDERED: MAGNESIUM HYDROXIDE 2,400 MG/30 ML ORAL.SUSP. PO PRN (09:30)
[2017-06-14] MEDS ORDERED: MAGNESIUM SULFATE 4GM 100 ML IV ONE (10:00)
[2017-06-14 11:00] VITALS: BP 130/82
[2017-06-14] MEDS: TPN PER PHARMACY MC PRN ×4 (11:37→12:51)
--- NOTE | 2017-06-14 11:40 | PDOC ---
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, fecal peritonitis - off copy reader pump Persistent hypomagnesemia HTN HLD NEW onset afib with RVR, SINus now hypokalemia, corrected Elcoholism, hx DESTINEE, dehydration, vasomotor mild malnutrition HYPophosphatemia, corrected Acute on chronic sciatica History of Present Illness History of Present Illness NOt good today, ATe 100% breakfast and also now has tPN via [facility] and felt bloated not good after.Wants to get out and walk and is frustrated no one is avail to do that with him yet NO flatus yet from GUT OStomy has output - UNable to take bowel regimen ordered not unless he gets walking He refused pT I ordered few days ago Plan: Asked aide to walk him around MAintain on liquid till passes stool LAxatives ordered Vitals Vitals Vital Signs Date Time Temp Pulse Resp B/P (MAP) Pulse Ox O2 Delivery O2 Flow Rate FiO2 06/14/17 08:33 Room Air 06/14/17 08:31 58 129/77 06/14/17 07:28 94 06/14/17 07:00 98.3 18 98.3 06/13/17 14:21 2.0 Physical Exam Physical Exam General: Alert, Oriented X3, Cooperative, No acute distress Heart: Regular rate, Normal S1, Normal S2, No murmurs Lungs: Clear Abdomen: Soft, Other (incision c/d/i, no erythema, GONZALES serosang, stoma pink, small amount of hayes drainage in ostomy ) Extremities: No edema, Normal pulses Skin: No breakdown Labs LABS Laboratory Tests Test 06/13/17 21:05 06/14/17 05:50 06/14/17 07:52 Glucose (Fingerstick) 151 mg/dL (70-99) 123 mg/dL (70-99) White Blood Count 12.3 x10^3/uL (4.0-11.0) Red Blood Count 3.21 x10^6/uL (4.30-5.70) Hemoglobin 9.5 g/dL (13.0-17.5) Hematocrit 27.7 % (39.0-53.0) Mean Corpuscular Volume 86 fL (79-100) Mean Corpuscular Hemoglobin 30 pg (25-35) Mean Corpuscular Hemoglobin Concent 34 g/dL (31-37) Red Cell Distribution Width 14.0 % (11.5-14.5) Platelet Count 462 x10^3/uL (140-400) Neutrophils (%) (Auto) 70 % (31-73) Lymphocytes (%) (Auto) 15 % (24-48) Monocytes (%) (Auto) 11 % (0-9) Eosinophils (%) (Auto) 4 % (0-3) Basophils (%) (Auto) 0 % (0-3) Neutrophils # (Auto) 8.6 x10^3uL (1.8-7.7) Lymphocytes # (Auto) 1.8 x10^3/uL (1.0-4.8) Monocytes # (Auto) 1.3 x10^3/uL (0.0-1.1) Eosinophils # (Auto) 0.5 x10^3/uL (0.0-0.7) Basophils # (Auto) 0.1 x10^3/uL (0.0-0.2) Sodium Level 136 mmol/L (136-145) Potassium Level 3.9 mmol/L (3.5-5.1) Chloride Level 103 mmol/L (98-107) Carbon Dioxide Level 30 mmol/L (21-32) Anion Gap 3 (6-14) Blood Urea Nitrogen 22 mg/dL (8-26) Creatinine 1.0 mg/dL (0.7-1.3) Estimated GFR (Cockcroft-Gault) 74.8 Glucose Level 109 mg/dL (70-99) Calcium Level 8.3 mg/dL (8.5-10.1) Phosphorus Level 3.7 mg/dL (2.6-4.7) Magnesium Level 1.7 mg/dL (1.8-2.4) Review of Systems Review of Systems limited, cranky today, no cp, soa or emesis Assessment and Plan Assessmemt and Plan Problems Medical Problems: (1) Abdominal pain Status: Acute (2) Elevated brain natriuretic peptide (BNP) level Status: Acute (3) Hypomagnesemia Status: Acute (4) Perforated abdominal viscus Status: Acute Problems: Comment Review of Relevant I have reviewed the following items ananda (where applicable) has been applied. Labs Laboratory Tests Test 06/12/17 16:39 06/12/17 20:54 06/13/17 06:10 06/13/17 07:42 Glucose (Fingerstick) 177 mg/dL (70-99) 151 mg/dL (70-99) 119 mg/dL (70-99) White Blood Count 11.9 x10^3/uL (4.0-11.0) Red Blood Count 3.36 x10^6/uL (4.30-5.70) Hemoglobin 9.8 g/dL (13.0-17.5) Hematocrit 28.9 % (39.0-53.0) Mean Corpuscular Volume 86 fL (79-100) Mean Corpuscular Hemoglobin 29 pg (25-35) Mean Corpuscular Hemoglobin Concent 34 g/dL (31-37) Red Cell Distribution Width 13.9 % (11.5-14.5) Platelet Count 378 x10^3/uL (140-400) Neutrophils (%) (Auto) 75 % (31-73) Lymphocytes (%) (Auto) 12 % (24-48) Monocytes (%) (Auto) 9 % (0-9) Eosinophils (%) (Auto) 3 % (0-3) Basophils (%) (Auto) 1 % (0-3) Neutrophils # (Auto) 8.9 x10^3uL (1.8-7.7) Lymphocytes # (Auto) 1.5 x10^3/uL (1.0-4.8) Monocytes # (Auto) 1.1 x10^3/uL (0.0-1.1) Eosinophils # (Auto) 0.4 x10^3/uL (0.0-0.7) Basophils # (Auto) 0.1 x10^3/uL (0.0-0.2) Sodium Level 137 mmol/L (136-145) Potassium Level 3.9 mmol/L (3.5-5.1) Chloride Level 102 mmol/L (98-107) Carbon Dioxide Level 30 mmol/L (21-32) Anion Gap 5 (6-14) Blood Urea Nitrogen 22 mg/dL (8-26) Creatinine 0.9 mg/dL (0.7-1.3) Estimated GFR (Cockcroft-Gault) 84.4 Glucose Level 121 mg/dL (70-99) Calcium Level 8.5 mg/dL (8.5-10.1) Phosphorus Level 3.6 mg/dL (2.6-4.7) Magnesium Level 1.7 mg/dL (1.8-2.4) Test 06/13/17 21:05 06/14/17 05:50 06/14/17 07:52 Glucose (Fingerstick) 151 mg/dL (70-99) 123 mg/dL (70-99) White Blood Count 12.3 x10^3/uL (4.0-11.0) Red Blood Count 3.21 x10^6/uL (4.30-5.70) Hemoglobin 9.5 g/dL (13.0-17.5) Hematocrit 27.7 % (39.0-53.0) Mean Corpuscular Volume 86 fL (79-100) Mean Corpuscular Hemoglobin 30 pg (25-35) Mean Corpuscular Hemoglobin Concent 34 g/dL (31-37) Red Cell Distribution Width 14.0 % (11.5-14.5) Platelet Count 462 x10^3/uL (140-400) Neutrophils (%) (Auto) 70 % (31-73) Lymphocytes (%) (Auto) 15 % (24-48) Monocytes (%) (Auto) 11 % (0-9) Eosinophils (%) (Auto) 4 % (0-3) Basophils (%) (Auto) 0 % (0-3) Neutrophils # (Auto) 8.6 x10^3uL (1.8-7.7) Lymphocytes # (Auto) 1.8 x10^3/uL (1.0-4.8) Monocytes # (Auto) 1.3 x10^3/uL (0.0-1.1) Eosinophils # (Auto) 0.5 x10^3/uL (0.0-0.7) Basophils # (Auto) 0.1 x10^3/uL (0.0-0.2) Sodium Level 136 mmol/L (136-145) Potassium Level 3.9 mmol/L (3.5-5.1) Chloride Level 103 mmol/L (98-107) Carbon Dioxide Level 30 mmol/L (21-32) Anion Gap 3 (6-14) Blood Urea Nitrogen 22 mg/dL (8-26) Creatinine 1.0 mg/dL (0.7-1.3) Estimated GFR (Cockcroft-Gault) 74.8 Glucose Level 109 mg/dL (70-99) Calcium Level 8.3 mg/dL (8.5-10.1) Phosphorus Level 3.7 mg/dL (2.6-4.7) Magnesium Level 1.7 mg/dL (1.8-2.4) Laboratory Tests Test 06/13/17 21:05 06/14/17 05:50 06/14/17 07:52 Glucose (Fingerstick) 151 mg/dL (70-99) 123 mg/dL (70-99) White Blood Count 12.3 x10^3/uL (4.0-11.0) Red Blood Count 3.21 x10^6/uL (4.30-5.70) Hemoglobin 9.5 g/dL (13.0-17.5) Hematocrit 27.7 % (39.0-53.0) Mean Corpuscular Volume 86 fL (79-100) Mean Corpuscular Hemoglobin 30 pg (25-35) Mean Corpuscular Hemoglobin Concent 34 g/dL (31-37) Red Cell Distribution Width 14.0 % (11.5-14.5) Platelet Count 462 x10^3/uL (140-400) Neutrophils (%) (Auto) 70 % (31-73) Lymphocytes (%) (Auto) 15 % (24-48) Monocytes (%) (Auto) 11 % (0-9) Eosinophils (%) (Auto) 4 % (0-3) Basophils (%) (Auto) 0 % (0-3) Neutrophils # (Auto) 8.6 x10^3uL (1.8-7.7) Lymphocytes # (Auto) 1.8 x10^3/uL (1.0-4.8) Monocytes # (Auto) 1.3 x10^3/uL (0.0-1.1) Eosinophils # (Auto) 0.5 x10^3/uL (0.0-0.7) Basophils # (Auto) 0.1 x10^3/uL (0.0-0.2) Sodium Level 136 mmol/L (136-145) Potassium Level 3.9 mmol/L (3.5-5.1) Chloride Level 103 mmol/L (98-107) Carbon Dioxide Level 30 mmol/L (21-32) Anion Gap 3 (6-14) Blood Urea Nitrogen 22 mg/dL (8-26) Creatinine 1.0 mg/dL (0.7-1.3) Estimated GFR (Cockcroft-Gault) 74.8 Glucose Level 109 mg/dL (70-99) Calcium Level 8.3 mg/dL (8.5-10.1) Phosphorus Level 3.7 mg/dL (2.6-4.7) Magnesium Level 1.7 mg/dL (1.8-2.4) Microbiology 06/06/17 Anaerobic/Aerobic Culture - Final, Complete 06/06/17 Anaerobic Culture Result 1 (AISSATOU) - Final, Complete 06/06/17 Anaerobic Culture Result 2 (AISSATOU) - Final, Complete 06/06/17 Aerobic Culture - Final, Complete 06/06/17 Aerobic Culture Result 1 (AISSATOU) - Final, Complete 06/06/17 Aerobic Culture Result 2 (AISSATOU) - Final, Complete 06/06/17 Antimicrobic Susceptibility - Final, Complete Medications Current Medications Sodium Chloride 1,000 ml @ 1,000 mls/hr 1X ONCE IV Last administered on 08:22; Start 06/06/17 at 08:30; Stop 06/06/17 at 09:29; Status DC Ondansetron HCl (Zofran) 8 mg 1X ONCE IV Last administered on 06/06/17 08:23 ; Start 06/06/17 at 08:30; Stop 06/06/17 at 08:31; Status DC Morphine Sulfate 5 mg 1X ONCE IV Last administered on 06/06/17 08:29; Start 06/06/17 at 08:30; Stop 06/06/17 at 08:31; Status DC Potassium Chloride (Klor-Con) 40 meq 1X ONCE PO Last administered on 09:31; Start 06/06/17 at 08:30; Stop 06/06/17 at 08:31; Status DC Potassium Chloride/Sodium Chloride 1,000 ml @ 250 mls/hr 1X ONCE IV Last administered on 06/06/17 09:36; Start 06/06/17 at 08:30; Stop 06/06/17 at 12:29 ; Status DC Iohexol (Omnipaque 300 Mg/ml) 60 ml 1X ONCE IV Last administered on 06/06/17 08:51; Start 06/06/17 at 08:45; Stop 06/06/17 at 08:46; Status DC Magnesium Oxide (Magnesium Oxide) 800 mg 1X STAT PO Last administered on 09:31; Start 06/06/17 at 08:37; Stop 06/06/17 at 08:40; Status DC Info (Do NOT chart on this entry -- for MONITORING) 1 each PRN DAILY PRN MC SEE COMMENTS; Start 06/06/17 at 08:45; Stop 06/08/17 at 08:44; Status DC Metronidazole 100 ml @ 100 mls/hr 1X ONCE IV Last administered on 06/06/17 10:00; Start 06/06/17 at 09:30; Stop 06/06/17 at 10:29; Status DC Levofloxacin/ Dextrose (Levaquin Per Pharmacy) 1 each PRN DAILY PRN MC SEE COMMENTS; Start 06/06/17 at 09:30; Stop 06/08/17 at 09:20; Status DC Levofloxacin/ Dextrose 100 ml @ 100 mls/hr 1X ONCE IV ; Start 06/06/17 at 09: 30; Stop 06/06/17 at 10:29; Status DC Levofloxacin/ Dextrose 100 ml @ 100 mls/hr Q24H IV Last administered on 11:36; Start 06/07/17 at 10:00; Stop 06/08/17 at 08:03; Status DC Rocuronium [place] (Zemuron) 100 mg STK-MED ONCE .ROUTE ; Start 06/06/17 at 10: 28; Stop 06/06/17 at 10:29; Status DC Fentanyl Citrate (Fentanyl 5ml Vial) 250 mcg STK-MED ONCE .ROUTE ; Start at 10:28; Stop 06/06/17 at 10:29; Status DC Propofol 20 ml @ As Directed STK-MED ONCE IV ; Start 06/06/17 at 10:32; Stop at 10:33; Status DC Lidocaine HCl (Lidocaine Pf 2% Vial) 5 ml STK-MED ONCE .ROUTE ; Start 06/06/17 at 10:32; Stop 06/06/17 at 10:33; Status DC Ondansetron HCl (Zofran) 4 mg STK-MED ONCE .ROUTE ; Start 06/06/17 at 10:33; Stop 06/06/17 at 10:34; Status DC Dexamethasone Sodium Phosphate (Decadron) 20 mg STK-MED ONCE .ROUTE ; Start 06/06/17 at 10:33; Stop 06/06/17 at 10:34; Status DC Multivitamins 10 ml/Folic Acid 1 mg/Thiamine HCl 100 mg/Ringer's Solution 1, 011.2 ml @ 1,000 mls/ hr 1X ONCE IV ; Start 06/06/17 at 11:30; Stop 06/06/17 at 12:30; Status DC Fentanyl Citrate (Fentanyl 2ml Vial) 25 mcg PRN Q5MIN PRN IV MILD PAIN; Start 06/06/17 at 11:45; Stop 06/07/17 at 11:44; Status DC Fentanyl Citrate (Fentanyl 2ml Vial) 50 mcg PRN Q5MIN PRN IV MODERATE PAIN Last administered on 06/06/17 17:24; Start 06/06/17 at 11:45; Stop 06/07/17 at 11:44; Status DC Morphine Sulfate 1 mg PRN Q10MIN PRN IV SEVERE PAIN Last administered on 15:38; Start 06/06/17 at 11:45; Stop 06/07/17 at 11:44; Status DC Ringer's Solution 1,000 ml @ 30 mls/hr Q24H IV ; Start 06/06/17 at 11:39; Stop 06/06/17 at 23:38; Status DC Lidocaine HCl (Xylocaine-Mpf 1% Vial) 2 ml 1X PRN PRN ID IV START; Start at 11:45; Stop 06/07/17 at 11:44; Status DC Hydromorphone HCl (Dilaudid) 0.5 mg PRN Q10MIN PRN IV SEV PAIN, Second choice; Start 06/06/17 at 11:45; Stop 06/07/17 at 11:44; Status DC Prochlorperazine Edisylate (Compazine) 5 mg PACU PRN PRN IV NAUSEA, MRX1; Start 06/06/17 at 11:45; Stop 06/07/17 at 11:44; Status DC Phenylephrine HCl (Pedro-Synephrine Inj) 10 mg STK-MED ONCE .ROUTE ; Start at 11:58; Stop 06/06/17 at 11:59; Status DC Sodium Chloride (Sodium Chloride) 50 ml STK-MED ONCE IJ ; Start 06/06/17 at 11: 58; Stop 06/06/17 at 11:59; Status DC Sevoflurane (Ultane) 90 ml STK-MED ONCE IH ; Start 06/06/17 at 13:52; Stop 06/06 at 13:53; Status DC Neostigmine Methylsulfate 5 mg STK-MED ONCE .ROUTE ; Start 06/06/17 at 13:52; Stop 06/06/17 at 13:53; Status DC Glycopyrrolate (Robinul) 1 mg STK-MED ONCE .ROUTE ; Start 06/06/17 at 13:52; Stop 06/06/17 at 13:53; Status DC Fentanyl Citrate (Fentanyl 2ml Vial) 100 mcg STK-MED ONCE .ROUTE ; Start at 14:18; Stop 06/06/17 at 14:19; Status DC Diphenhydramine HCl (Benadryl) 25 mg PRN Q6HRS PRN IV ITCHING; Start 06/06/17 at 14:30 Enoxaparin Sodium (Lovenox 40mg Syringe) 40 mg Q24H SQ Last administered on t 15:00; Start 06/06/17 at 15:00; Stop 06/06/17 at 15:41; Status DC Sodium Chloride (Normal Saline Flush) 3 ml QSHIFT PRN IV AFTER MEDS AND BLOOD DRAWS; Start 06/06/17 at 14:30 Potassium Chloride/Sodium Chloride 1,000 ml @ 100 mls/hr Q10H IV Last administered on 06/07/17 20:00; Start 06/06/17 at 15:00; Stop 06/08/17 at 09: 20; Status DC Hydromorphone HCl 30 ml @ 0 mls/hr CONT PRN PRN IV PROTOCOL; Start 06/06/17 at 14:30; Stop 06/06/17 at 17:30; Status DC Ondansetron HCl (Zofran) 4 mg PRN Q6HRS PRN IV NAUESA, 1ST CHOICE; Start at 14:30 Epinephrine (S2 Racepinephrine) 0.5 ml STK-MED ONCE .ROUTE ; Start 06/06/17 at 14:35; Stop 06/06/17 at 14:36; Status DC Propofol 50 ml @ As Directed STK-MED ONCE IV ; Start 06/06/17 at 14:38; Stop at 14:39; Status DC Succinylcholine Chloride (Anectine) 200 mg STK-MED ONCE .ROUTE ; Start 06/06/17 at 14:40; Stop 06/06/17 at 14:41; Status DC Epinephrine (S2 Racepinephrine) 0.5 ml 1X ONCE NEB Last administered on 14:43; Start 06/06/17 at 14:36; Stop 06/06/17 at 14:43; Status DC Midazolam HCl (Versed) 2 mg STK-MED ONCE .ROUTE ; Start 06/06/17 at 14:48; Stop 06/06/17 at 14:49; Status DC Propofol 100 ml @ 0 mls/hr CONT PRN IV SEE I/O RECORD; Start 06/06/17 at 15:15 ; Stop 06/08/17 at 09:20; Status DC Propofol 50 ml @ As Directed STK-MED ONCE IV ; Start 06/06/17 at 15:03; Stop at 15:04; Status DC Dexamethasone Sodium Phosphate (Decadron) 12 mg 1X ONCE IV Last administered on 06/06/17 15:09; Start 06/06/17 at 15:00; Stop 06/06/17 at 15:06; Status DC Dexamethasone Sodium Phosphate (Decadron) 4 mg STK-MED ONCE .ROUTE ; Start 06/06 at 15:05; Stop 06/06/17 at 15:06; Status DC Propofol 50 ml @ 0 mls/hr 1X ONCE IV Last administered on 06/06/17 15:02; Start 06/06/17 at 15:15; Stop 06/06/17 at 15:16; Status DC Succinylcholine Chloride (Anectine) 200 mg 1X ONCE IV ; Start 06/06/17 at 15:15 ; Stop 06/06/17 at 15:16; Status DC Midazolam HCl (Versed) 2 mg 1X ONCE IV ; Start 06/06/17 at 15:15; Stop at 15:16; Status DC Cellulose 1 each STK-MED ONCE .ROUTE Last administered on 06/06/17 13:35; Start 06/06/17 at 14:19; Stop 06/06/17 at 15:20; Status DC Enoxaparin Sodium (Lovenox 40mg Syringe) 40 mg Q24H SQ Last administered on 08:48; Start 06/07/17 at 09:00; Stop 06/12/17 at 10:16; Status DC Metronidazole 100 ml @ 100 mls/hr Q12HR IV Last administered on 06/12/17 21: 32; Start 06/06/17 at 21:00; Stop 06/13/17 at 07:45; Status DC Multivitamins 10 ml/Folic Acid 1 mg/Thiamine HCl 100 mg/Dextrose/ Lactated Ringer's 1,011.2 ml @ 100 mls/ hr DAILY IV Last administered on 06/07/17 09: 21; Start 06/07/17 at 09:00; Stop 06/08/17 at 08:06; Status DC Lorazepam (Ativan) 2 mg PRN Q4HRS PRN IV ANXIETY / AGITATION; Start 06/06/17 at 15:45; Stop 06/12/17 at 10:16; Status DC Famotidine (Pepcid) 20 mg BID IVP Last administered on 06/08/17 11:18; Start 06/06/17 at 21:00; Stop 06/09/17 at 07:53; Status DC Morphine Sulfate 2 mg PRN Q2HR PRN IV PAIN Last administered on 06/10/17 22: 59; Start 06/06/17 at 15:45 Morphine Sulfate 4 mg PRN Q2HR PRN IV PAIN Last administered on 06/11/17 08: 31; Start 06/06/17 at 15:45 Ondansetron HCl (Zofran) 4 mg PRN Q6HRS PRN IV NAUSEA/VOMITING; Start 06/06/17 at 15:45; Stop 06/06/17 at 15:45; Status DC Fentanyl Citrate 30 ml @ 0 mls/hr CONT PRN IV PROTOCOL Last administered on 02:54; Start 06/06/17 at 17:30; Stop 06/07/17 at 10:39; Status DC Midazolam HCl 100 ml @ 0 mls/hr CONT PRN IV SEE I/O RECORD; Start 06/06/17 at 23:00; Stop 06/08/17 at 09:20; Status DC Sodium Chloride 1,000 ml @ 1,000 mls/hr 1X ONCE IV Last administered on 23:34; Start 06/06/17 at 23:00; Stop 06/06/17 at 23:59; Status DC Magnesium Sulfate/ Dextrose 50 ml @ 25 mls/hr 1X ONCE IV Last administered on 06/07/17 09:28; Start 06/07/17 at 08:15; Stop 06/07/17 at 10:14; Status DC Info 1 each PRN DAILY PRN MC SEE COMMENTS Last administered on 06/14/17 11:37 ; Start 06/07/17 at 09:30 Methylprednisolone Sodium Succinate (SOLU-Medrol 125MG VIAL) 50 mg DAILY IV Last administered on 06/12/17 08:47; Start 06/07/17 at 11:00; Stop 06/12/17 at 10:16; Status DC Hydromorphone HCl 30 ml @ 0 mls/hr CONT PRN PRN IV PROTOCOL Last administered on 06/07/17 11:16; Start 06/07/17 at 10:45; Stop 06/09/17 at 08:57; Status DC Sodium Chloride 90 meq/Potassium Chloride 50 meq/ Potassium Phosphate 13.6 mmol/ Magnesium Sulfate 10 meq/ Calcium Gluconate 10 meq/ Multivitamins 10 ml/Chromium / Copper/Manganese/ Seleni/Zn 1 ml/ Total Parenteral Nutrition/Amino Acids/ Dextrose/ Fat Emulsion Intravenous 1,512 ml @ 63 mls/hr TPN CONT IV Last administered on 06/07/17 22:04; Start 06/07/17 at 22:00; Stop 06/08/17 at 21 :59; Status DC Influenza Virus Vaccine Quadrival (Fluarix Quad [id number] Syringe) 0.5 ml ONCE ONCE VAX IM Last administered on 06/08/17 13:23; Start 06/07/17 at 16:15; Stop 06/07/17 at 16:35; Status DC Pneumococcal Polyvalent Vaccine (Do NOT chart on this placeholder) 1 each PRN 1X PRN MC SEE COMMENTS; Start 06/07/17 at 16:45; Status UNV Pneumococcal Polyvalent Vaccine (Pneumovax 23) 0.5 ml ONCE ONCE VAX IM Last administered on 06/08/17 13:25; Start 06/07/17 at 17:00; Stop 06/07/17 at 17 :01; Status DC Ceftriaxone Sodium 1 gm/ Sodium Chloride 50 ml @ 100 mls/hr Q24H IV Last administered on 06/12/17 08:45; Start 06/08/17 at 09:00; Stop 06/13/17 at 07 :45; Status DC Sodium Phosphate 20 mmol/Dextrose 256.6667 ml @ 64.167 m... 1X ONCE IV Last administered on 06/08/17 08:58; Start 06/08/17 at 09:00; Stop 06/08/17 at 12 :59; Status DC Multi-Ingred Cream/Lotion/Oil/ Oint (Artificial Tears Eye Oint) 1 juvenal PRN Q1HR PRN OU DRY EYE; Start 06/08/17 at 09:15 Sodium Chloride 90 meq/Potassium Chloride 40 meq/ Potassium Phosphate 17 mmol/ Magnesium Sulfate 10 meq/Calcium Gluconate 10 meq/ Multivitamins 10 ml/Chromium / Copper/Manganese/ Seleni/Zn 1 ml/ Total Parenteral Nutrition/Amino Acids/ Dextrose/ Fat Emulsion Intravenous 1,512 ml @ 63 mls/hr TPN CONT IV Last administered on 06/08/17 22:42; Start 06/08/17 at 22:00; Stop 06/09/17 at 21 :59; Status DC Diclofenac Sodium (Voltaren) 1 juvenal BID TP Last administered on 06/12/17 21:00 ; Start 06/08/17 at 21:00 Oxycodone/ Acetaminophen (Percocet 10/325) 1 tab PRN Q4HRS PRN PO pain Last administered on 06/14/17 07:28; Start 06/09/17 at 08:00 Magnesium Sulfate/ Dextrose 50 ml @ 25 mls/hr 1X ONCE IV Last administered on 06/09/17 09:31; Start 06/09/17 at 08:00; Stop 06/09/17 at 09:59; Status DC Potassium Phosphate (K-Phos Original) 500 mg BID PO Last administered on 08:30; Start 06/09/17 at 09:00 Lidocaine (Lidoderm) 1 patch DAILY TD Last administered on 06/09/17 09:36; Start 06/09/17 at 09:00; Stop 06/10/17 at 20:50; Status DC Potassium Phosphate 13.6 mmol/Sodium Chloride 104.5333 ml @ 52.267 m... 1X ONCE IV Last administered on 06/09/17 13:51; Start 06/09/17 at 13:30; Stop 06/09/17 at 15:29; Status DC Sodium Chloride 40 meq/Sodium Acetate 50 meq/ Potassium Chloride 40 meq/ Potassium Phosphate 20 mmol/ Magnesium Sulfate 15 meq/Calcium Gluconate 10 meq/ Multivitamins 10 ml/Chromium/ Copper/Manganese/ Seleni/Zn 1 ml/ Total Parenteral Nutrition/Amino Acids/Dextrose/ Fat Emulsion Intravenous 1,512 ml @ 63 mls/hr TPN CONT IV Last administered on 06/09/17 22:11; Start 06/09/17 at 22:00; Stop 06/10/17 at 21:59; Status DC Potassium Chloride (Klor-Con) 40 meq 1X ONCE PO Last administered on 10:40; Start 06/10/17 at 09:30; Stop 06/10/17 at 09:31; Status DC Potassium Chloride (Klor-Con) 20 meq [id number] PO Last administered on 08:32; Start 06/11/17 at 08:00 Magnesium Sulfate/ Dextrose 50 ml @ 25 mls/hr 1X ONCE IV Last administered on 06/10/17 10:38; Start 06/10/17 at 10:00; Stop 06/10/17 at 11:59; Status DC Sodium Chloride 40 meq/Sodium Acetate 50 meq/ Potassium Acetate 60 meq/ Potassium Phosphate 18 mmol/ Magnesium Sulfate 18 meq/Calcium Gluconate 10 meq/ Multivitamins 10 ml/Chromium/ Copper/Manganese/ Seleni/Zn 1 ml/ Total Parenteral Nutrition/Amino Acids/Dextrose/ Fat Emulsion Intravenous 1,512 ml @ 63 mls/hr TPN CONT IV Last administered on 06/10/17 21:43; Start 06/10/17 at 22:00; Stop 06/11/17 at 22:00; Status DC Lidocaine (Lidoderm) 1 patch QHS TD Last administered on 06/10/17 21:37; Start 06/10/17 at 21:00; Stop 06/12/17 at 05:01; Status DC Magnesium Sulfate/ Dextrose 100 ml @ 25 mls/hr 1X ONCE IV Last administered on 06/11/17 11:22; Start 06/11/17 at 09:00; Stop 06/11/17 at 12:59; Status DC Lisinopril (Prinivil) 10 mg DAILY PO Last administered on 06/13/17 08:34; Start 06/11/17 at 13:00; Stop 06/13/17 at 09:19; Status DC Metoprolol Succinate (Toprol Xl) 100 mg DAILY PO Last administered on 08:31; Start 06/11/17 at 13:00 Hydrochlorothiazide (Hydrodiuril) 25 mg DAILY PO Last administered on 08:30; Start 06/11/17 at 13:00 Sodium Chloride 40 meq/Sodium Acetate 50 meq/ Potassium Acetate 60 meq/ Potassium Phosphate 18 mmol/ Magnesium Sulfate 18 meq/Calcium Gluconate 10 meq/ Multivitamins 10 ml/Chromium/ Copper/Manganese/ Seleni/Zn 1 ml/ Total Parenteral Nutrition/Amino Acids/Dextrose/ Fat Emulsion Intravenous 1,512 ml @ 63 mls/hr TPN CONT IV Last administered on 06/11/17 21:43; Start 06/11/17 at 22:00; Stop 06/12/17 at 21:59; Status DC Lidocaine (Lidoderm) 1 patch DAILY TD Last administered on 06/13/17 08:35; Start 06/12/17 at 09:00 Hydralazine HCl (Apresoline Inj) 10 mg PRN Q4HRS PRN IVP ELEVATED BP, SEE COMMENTS; Start 06/12/17 at 09:00 Magnesium Sulfate/ Dextrose 100 ml @ 25 mls/hr 1X ONCE IV Last administered on 06/12/17 09:53; Start 06/12/17 at 09:30; Stop 06/12/17 at 13:29; Status DC Magnesium Oxide (Magnesium Oxide) 400 mg DAILY PO Last administered on 08:30; Start 06/12/17 at 09:30 Lorazepam (Ativan) 1 mg PRN Q4HRS PRN IV ANXIETY / AGITATION; Start 06/12/17 at 10:15 Alprazolam (Xanax) 0.5 mg PRN Q8HRS PRN PO ANXIETY / AGITATION; Start at 10:15 Prednisone (Prednisone) 20 mg DAILY PO Last administered on 06/13/17 08:34; Start 06/13/17 at 09:00; Stop 06/13/17 at 15:06; Status DC Sodium Chloride 60 meq/Sodium Acetate 50 meq/ Potassium Acetate 60 meq/ Potassium Phosphate 18 mmol/ Magnesium Sulfate 27 meq/Calcium Gluconate 10 meq/ Multivitamins 10 ml/Chromium/ Copper/Manganese/ Seleni/Zn 1 ml/ Total Parenteral Nutrition/Amino Acids/Dextrose/ Fat Emulsion Intravenous 1,512 ml @ 63 mls/hr TPN CONT IV Last administered on 06/12/17 21:33; Start 06/12/17 at 22:00; Stop 06/13/17 at 21:59; Status DC Metronidazole (Flagyl) 500 mg Q12HR PO Last administered on 06/14/17 08:32; Start 06/13/17 at 09:00 Cefpodoxime Proxetil (Vantin) 200 mg BID PO Last administered on 06/14/17 08: 30; Start 06/13/17 at 09:00 Lisinopril (Prinivil) 20 mg DAILY PO Last administered on 06/14/17 08:31; Start 06/14/17 at 09:00 Lisinopril (Prinivil) 10 mg 1X ONCE PO ; Start 06/13/17 at 09:30; Stop at 09:31; Status DC Docusate Sodium (Colace) 100 mg BID PO Last administered on 06/14/17 08:30; Start 06/13/17 at 11:30 Sodium Chloride 60 meq/Sodium Acetate 50 meq/ Potassium Acetate 60 meq/ Potassium Phosphate 18 mmol/ Magnesium Sulfate 27 meq/Calcium Gluconate 10 meq/ Multivitamins 10 ml/Chromium/ Copper/Manganese/ Seleni/Zn 1 ml/ Total Parenteral Nutrition/Amino Acids/Dextrose/ Fat Emulsion Intravenous 1,512 ml @ 63 mls/hr TPN CONT IV Last administered on 06/13/17 22:31; Start 06/13/17 at 22:00; Stop 06/14/17 at 21:59 Lisinopril (Prinivil) 10 mg 1X ONCE PO Last administered on 06/13/17t 16:18; Start 06/13/17 at 14:45; Stop 06/13/17 at 14:46; Status DC Polyethylene Glycol (miraLAX PACKET) 17 gm DAILY PO ; Start 06/14/17 at 09:30 Magnesium Hydroxide (Milk Of Magnesia) 2,400 mg PRN DAILY PRN PO CONSTIPATION; Start 06/14/17 at 09:30 Magnesium Hydroxide (Milk Of Magnesia) 2,400 mg 1X ONCE PO ; Start 06/14/17 at 09:30; Stop 06/14/17 at 09:31; Status Cancel Magnesium Sulfate/ Dextrose 100 ml @ 25 mls/hr 1X ONCE IV ; Start 06/14/17 at 10:00; Stop 06/14/17 at 13:59 Active Scripts Active Reported [prednisone taper] Metoprolol Succinate ( Xl ) (Metoprolol Succinate) 100 Mg Tab.er.24h 1 Tab PO DAILY Lisinopril 10 Mg Tablet 1 Tab PO DAILY Hydrochlorothiazide Tablet (Hydrochlorothiazide) 50 Mg Tablet 25 Tab PO DAILY Vitals/I & O Vital Sign - Last 24 Hours 06/13/17 06/13/17 06/13/17 06/13/17 14:21 15:00 16:18 19:00 Temp 98.2 98.2 Pulse 60 60 Resp 18 B/P (MAP) 146/71 (96) 146/71 Pulse Ox 96 92 O2 Delivery Room Air Room Air Room Air O2 Flow Rate 2.0 06/13/17 06/13/17 06/13/17 06/13/17 19:16 19:40 23:05 23:54 Temp 98.2 98.6 98.2 98.6 Pulse 59 55 Resp 16 16 B/P (MAP) 119/91 (100) 141/68 (92) Pulse Ox 92 93 93 94 O2 Delivery Room Air Room Air Room Air Room Air 06/14/17 06/14/17 06/14/17 06/14/17 03:00 03:16 04:20 07:00 Temp 98.3 98.3 98.3 98.3 Pulse 60 58 Resp 18 16 18 B/P (MAP) 124/79 (94) 129/77 (94) Pulse Ox 94 94 94 94 O2 Delivery Room Air Room Air 10/17/06/14/17 06/14/17 06/14/17 07:28 07:50 08:31 08:31 Pulse 58 58 B/P (MAP) 129/77 129/77 Pulse Ox 94 O2 Delivery Room Air Room Air 06/14/17 08:33 O2 Delivery Room Air Intake and Output 06/14/17 06/14/17 06/15/17 15:00 23:00 07:00 Output Total 430 ml Balance -430 ml TAMMY LEPE MD Jun 14, 2017 11:40
--- NOTE | 2017-06-14 11:50 | PDOC ---
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 MANAGER 06/14/17 1150: SURGICAL PROGRESS NOTE Subjective Not doing well today increased pain after laxatives today + nausea Vital Signs Vital Signs Date Time Temp Pulse Resp B/P (MAP) Pulse Ox O2 Delivery O2 Flow Rate FiO2 06/14/17 08:33 Room Air 06/14/17 08:31 58 129/77 06/14/17 07:28 94 06/14/17 07:00 98.3 18 98.3 06/13/17 14:21 2.0 I&O Intake and Output 06/15/17 07:00 Output Total 430 ml Balance -430 ml Output Urine Total 430 ml General: Alert, Cooperative, Other (anxious, upset) Abdomen: Soft, Other (mildy distended, tender diffusely, stoma pink, no stool or flatus, scant drainage in [place] ) Labs Laboratory Tests Test 06/12/17 16:39 06/12/17 20:54 06/13/17 06:10 06/13/17 07:42 Glucose (Fingerstick) 177 mg/dL (70-99) 151 mg/dL (70-99) 119 mg/dL (70-99) White Blood Count 11.9 x10^3/uL (4.0-11.0) Red Blood Count 3.36 x10^6/uL (4.30-5.70) Hemoglobin 9.8 g/dL (13.0-17.5) Hematocrit 28.9 % (39.0-53.0) Mean Corpuscular Volume 86 fL (79-100) Mean Corpuscular Hemoglobin 29 pg (25-35) Mean Corpuscular Hemoglobin Concent 34 g/dL (31-37) Red Cell Distribution Width 13.9 % (11.5-14.5) Platelet Count 378 x10^3/uL (140-400) Neutrophils (%) (Auto) 75 % (31-73) Lymphocytes (%) (Auto) 12 % (24-48) Monocytes (%) (Auto) 9 % (0-9) Eosinophils (%) (Auto) 3 % (0-3) Basophils (%) (Auto) 1 % (0-3) Neutrophils # (Auto) 8.9 x10^3uL (1.8-7.7) Lymphocytes # (Auto) 1.5 x10^3/uL (1.0-4.8) Monocytes # (Auto) 1.1 x10^3/uL (0.0-1.1) Eosinophils # (Auto) 0.4 x10^3/uL (0.0-0.7) Basophils # (Auto) 0.1 x10^3/uL (0.0-0.2) Sodium Level 137 mmol/L (136-145) Potassium Level 3.9 mmol/L (3.5-5.1) Chloride Level 102 mmol/L (98-107) Carbon Dioxide Level 30 mmol/L (21-32) Anion Gap 5 (6-14) Blood Urea Nitrogen 22 mg/dL (8-26) Creatinine 0.9 mg/dL (0.7-1.3) Estimated GFR (Cockcroft-Gault) 84.4 Glucose Level 121 mg/dL (70-99) Calcium Level 8.5 mg/dL (8.5-10.1) Phosphorus Level 3.6 mg/dL (2.6-4.7) Magnesium Level 1.7 mg/dL (1.8-2.4) Test 06/13/17 21:05 06/14/17 05:50 06/14/17 07:52 Glucose (Fingerstick) 151 mg/dL (70-99) 123 mg/dL (70-99) White Blood Count 12.3 x10^3/uL (4.0-11.0) Red Blood Count 3.21 x10^6/uL (4.30-5.70) Hemoglobin 9.5 g/dL (13.0-17.5) Hematocrit 27.7 % (39.0-53.0) Mean Corpuscular Volume 86 fL (79-100) Mean Corpuscular Hemoglobin 30 pg (25-35) Mean Corpuscular Hemoglobin Concent 34 g/dL (31-37) Red Cell Distribution Width 14.0 % (11.5-14.5) Platelet Count 462 x10^3/uL (140-400) Neutrophils (%) (Auto) 70 % (31-73) Lymphocytes (%) (Auto) 15 % (24-48) Monocytes (%) (Auto) 11 % (0-9) Eosinophils (%) (Auto) 4 % (0-3) Basophils (%) (Auto) 0 % (0-3) Neutrophils # (Auto) 8.6 x10^3uL (1.8-7.7) Lymphocytes # (Auto) 1.8 x10^3/uL (1.0-4.8) Monocytes # (Auto) 1.3 x10^3/uL (0.0-1.1) Eosinophils # (Auto) 0.5 x10^3/uL (0.0-0.7) Basophils # (Auto) 0.1 x10^3/uL (0.0-0.2) Sodium Level 136 mmol/L (136-145) Potassium Level 3.9 mmol/L (3.5-5.1) Chloride Level 103 mmol/L (98-107) Carbon Dioxide Level 30 mmol/L (21-32) Anion Gap 3 (6-14) Blood Urea Nitrogen 22 mg/dL (8-26) Creatinine 1.0 mg/dL (0.7-1.3) Estimated GFR (Cockcroft-Gault) 74.8 Glucose Level 109 mg/dL (70-99) Calcium Level 8.3 mg/dL (8.5-10.1) Phosphorus Level 3.7 mg/dL (2.6-4.7) Magnesium Level 1.7 mg/dL (1.8-2.4) Laboratory Tests Test 06/13/17 21:05 06/14/17 05:50 06/14/17 07:52 Glucose (Fingerstick) 151 mg/dL (70-99) 123 mg/dL (70-99) White Blood Count 12.3 x10^3/uL (4.0-11.0) Red Blood Count 3.21 x10^6/uL (4.30-5.70) Hemoglobin 9.5 g/dL (13.0-17.5) Hematocrit 27.7 % (39.0-53.0) Mean Corpuscular Volume 86 fL (79-100) Mean Corpuscular Hemoglobin 30 pg (25-35) Mean Corpuscular Hemoglobin Concent 34 g/dL (31-37) Red Cell Distribution Width 14.0 % (11.5-14.5) Platelet Count 462 x10^3/uL (140-400) Neutrophils (%) (Auto) 70 % (31-73) Lymphocytes (%) (Auto) 15 % (24-48) Monocytes (%) (Auto) 11 % (0-9) Eosinophils (%) (Auto) 4 % (0-3) Basophils (%) (Auto) 0 % (0-3) Neutrophils # (Auto) 8.6 x10^3uL (1.8-7.7) Lymphocytes # (Auto) 1.8 x10^3/uL (1.0-4.8) Monocytes # (Auto) 1.3 x10^3/uL (0.0-1.1) Eosinophils # (Auto) 0.5 x10^3/uL (0.0-0.7) Basophils # (Auto) 0.1 x10^3/uL (0.0-0.2) Sodium Level 136 mmol/L (136-145) Potassium Level 3.9 mmol/L (3.5-5.1) Chloride Level 103 mmol/L (98-107) Carbon Dioxide Level 30 mmol/L (21-32) Anion Gap 3 (6-14) Blood Urea Nitrogen 22 mg/dL (8-26) Creatinine 1.0 mg/dL (0.7-1.3) Estimated GFR (Cockcroft-Gault) 74.8 Glucose Level 109 mg/dL (70-99) Calcium Level 8.3 mg/dL (8.5-10.1) Phosphorus Level 3.7 mg/dL (2.6-4.7) Magnesium Level 1.7 mg/dL (1.8-2.4) Problem List Problems Medical Problems: (1) Abdominal pain Status: Acute (2) Elevated brain natriuretic peptide (BNP) level Status: Acute (3) Hypomagnesemia Status: Acute (4) Perforated abdominal viscus Status: Acute Assessment/Plan dc laxatives will have dr Maximiliano FERRO today Problems: MARY MARTINEZ MD 06/14/17 1400: SURGICAL PROGRESS NOTE Assessment/Plan pt seen, I listened to his explanation of the days events, and then examined him at the bedside belly is slightly distended, soft, tympanitic, stoma viable, small amount of liquid output appears stable will check CT Problems: MINA LYNCH APRN Jun 14, 2017 11:50 MARY MARTNIEZ MD Jun 14, 2017 14:00
[2017-06-14] MEDS ORDERED: CONTRAST GIVEN MC PRN (13:15)
[2017-06-14] MEDS ORDERED: HYDROmorphone 2 MG/ML VIAL IV ONE (13:15)
[2017-06-14] MEDS ORDERED: IOHEXOL 300 MG/ML 75 ML VIAL IV ONE (13:30)
--- NOTE | 2017-06-14 14:31 | RAD ---
Indication: Abdominal pain. Technique: Axial images and coronal and sagittal reformatted images are provided. 75 mL of intravenous Omnipaque 300 was administered without complication. Comparison is from June 06, 2017. One or more of the following individualized dose reduction techniques were utilized for this examination: 1. Automated exposure control 2. Adjustment of the mA and/or kV according to patient size 3. Use of iterative reconstruction technique Findings: There is a small right pleural effusion. There is right lower lobe consolidation with air bronchogram. There is dependent atelectasis. There is a trace left pleural effusion. Heart is not enlarged. Minimal coronary artery calcification is noted. There is gynecomastia. Free air is again noted although decreased from prior study. Liver is unremarkable. Gallbladder is normal in appearance. Spleen is not enlarged. Pancreas and adrenals are unremarkable. Kidneys are symmetrically perfused. Aorta is normal caliber with atheromatous disease noted. Lack of oral contrast limits evaluation of bowel. There is no small bowel obstruction or mural thickening. There has been midline laparotomy with partial colectomy, appears a portion of the distal descending and proximal sigmoid colon has been resected. There is a left lower quadrant burning colostomy. Surgical drain enters on the right and extends down into the pelvis, could also explain some of the pneumoperitoneum. Remaining colon is without definite mural thickening. There is no mesenteric or retroperitoneal adenopathy. There is no organized fluid collection. Bladder is unremarkable. Prostate is mildly enlarged. Calcified phleboliths are noted. There are degenerative changes in the spine. Impression: 1. Expected postoperative findings of partial colectomy and diverting colostomy. Small amount of gas within the abdomen is decreased from prior study, may be related to the remaining surgical drain. 2. No acute intra-abdominal findings. 3. Right lower lobe consolidation with air bronchograms concerning for pneumonia. Small right and trace left pleural effusion.
[2017-06-14 15:00] VITALS: BP 104/58
--- NOTE | 2017-06-14 15:51 | PDOC ---
Provider Note Provider Note CT without acute change d/w Mr Pedro and his feeling better continue supportive care MARY MARTINEZ MD Jun 14, 2017 15:51
[2017-06-14 19:00] VITALS: BP 97/64
[2017-06-14] MEDS ORDERED: [UNRECOGNIZED DRUG - OTHER] IV SCH ×11 (22:00)
[2017-06-14] MEDS ORDERED: TOTAL PARENTERAL NUTRITION IV SCH ×11 (22:00)
[2017-06-14] MEDS ORDERED: DEXTROSE 70% IV SCH ×11 (22:00)
[2017-06-14] MEDS ORDERED: AMINO ACIDS IV SCH ×11 (22:00)
[2017-06-14 23:59] VITALS: BP 147/67
[2017-06-15] MEDS: oxyCODONE/APAP 10/325 1 TAB TABLET PO PRN ×3 (00:12→08:48)
[2017-06-15 03:00] VITALS: BP 116/67
[2017-06-15 06:51] LABS: CALCIUM 8.1 mg/dL (8.5-10.1); CREATININE 1.1 mg/dL (0.7-1.3); MAGNESIUM 1.9 mg/dL (1.8-2.4); PHOSPHORUS 3.9 mg/dL (2.6-4.7)
[2017-06-15 07:00] VITALS: BP 134/77
--- NOTE | 2017-06-15 08:29 | PDOC ---
Infectious Disease Note Subjective Subjective Had an issue with too many pills causing bloating and discomfort that has now improved Has been ambulating ROS ROS GEN: Denies fevers, chills, sweats HEENT: Denies blurred vision, sore throat CV: Denies chest pain RESP: Denies shortness of air, cough GI: Denies n/v/d NEURO: Denies confusion, dizziness MSK: Denies weakness, joint pain/swelling Vital Sign Vital Signs Vital Signs Date Time Temp Pulse Resp B/P (MAP) Pulse Ox O2 Delivery O2 Flow Rate FiO2 06/15/17 05:15 95 Room Air 06/15/17 04:12 16 06/15/17 03:00 97.9 68 116/67 (83) 97.9 Physical Exam PHYSICAL EXAM GENERAL: NAD, Alert, looks well HEENT: PERRL, OC/OP- clear NECK: Supple, no JVD, no LN LUNGS: Clear HEART: S1S2, no gallop, no murmur ABD: Soft, NT, no organomegaly, no rebound. GONZALES with serous fluid. Ostomy with small amount of output EXT: No edema, no cyanosis BREAD OVEN OPERATOR: Alert, oriented x 3, no focal neurologic deficit SKIN: No rash IV: PICC clean Labs Lab Laboratory Tests Test 06/14/17 12:54 06/14/17 16:49 06/14/17 21:20 06/15/17 06:20 Glucose (Fingerstick) 138 mg/dL (70-99) 130 mg/dL (70-99) 133 mg/dL (70-99) Sodium Level 136 mmol/L (136-145) Potassium Level 4.0 mmol/L (3.5-5.1) Chloride Level 102 mmol/L (98-107) Carbon Dioxide Level 30 mmol/L (21-32) Anion Gap 4 (6-14) Blood Urea Nitrogen 23 mg/dL (8-26) Creatinine 1.1 mg/dL (0.7-1.3) Estimated GFR (Cockcroft-Gault) 67.0 Glucose Level 112 mg/dL (70-99) Calcium Level 8.1 mg/dL (8.5-10.1) Phosphorus Level 3.9 mg/dL (2.6-4.7) Magnesium Level 1.9 mg/dL (1.8-2.4) Test 06/15/17 08:08 Glucose (Fingerstick) 114 mg/dL (70-99) Micro CT abd 06/14 Impression: 1. Expected postoperative findings of partial colectomy and diverting colostomy. Small amount of gas within the abdomen is decreased from prior study, may be related to the remaining surgical drain. 2. No acute intra-abdominal findings. 3. Right lower lobe consolidation with air bronchograms concerning for pneumonia. Small right and trace left pleural effusion. Objective Assessment Perforated viscus with fecal peritonitis, E. 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 S/p [address] improved Abdominal pain, better Respiratory failure - better - some RLL consolidation Chronic back pain HTN Leukocytosis, ? steroids - clinically better no off steroids 06/13 Plan Plan of Care Cont Cefpodoxime/Flagyl but po monitor ostomy output F/u labs PT/OT THALIA MORALES MD Jun 15, 2017 08:29
[2017-06-15] MEDS: DOCUSATE SODIUM 100 MG CAPSULE. PO SCH ×2 (08:51→21:48)
[2017-06-15] MEDS: DICLOFENAC SODIUM 1% TOPICAL GEL 100GM TUBE. TP SCH ×2 (09:00→21:00)
[2017-06-15] MEDS: LIDOCAINE (700MG/PATCH) PATCH. TD SCH (09:00)
--- NOTE | 2017-06-15 10:37 | PDOC ---
SURGICAL PROGRESS NOTE Subjective unhappy with med administration too many pills at once has to wait on pain meds Vital Signs Vital Signs Date Time Temp Pulse Resp B/P (MAP) Pulse Ox O2 Delivery O2 Flow Rate FiO2 06/15/17 07:00 98.5 68 18 134/77 (96) 93 Room Air 98.5 PATIENT HAS A MUELLER: No General: Alert, Oriented X3, No acute distress Abdomen: Soft, Other (minimal incisional drainage, stoma viable, minimal output ) Labs Laboratory Tests Test 06/13/17 21:05 06/14/17 05:50 06/14/17 07:52 06/14/17 12:54 Glucose (Fingerstick) 151 mg/dL (70-99) 123 mg/dL (70-99) 138 mg/dL (70-99) White Blood Count 12.3 x10^3/uL (4.0-11.0) Red Blood Count 3.21 x10^6/uL (4.30-5.70) Hemoglobin 9.5 g/dL (13.0-17.5) Hematocrit 27.7 % (39.0-53.0) Mean Corpuscular Volume 86 fL (79-100) Mean Corpuscular Hemoglobin 30 pg (25-35) Mean Corpuscular Hemoglobin Concent 34 g/dL (31-37) Red Cell Distribution Width 14.0 % (11.5-14.5) Platelet Count 462 x10^3/uL (140-400) Neutrophils (%) (Auto) 70 % (31-73) Lymphocytes (%) (Auto) 15 % (24-48) Monocytes (%) (Auto) 11 % (0-9) Eosinophils (%) (Auto) 4 % (0-3) Basophils (%) (Auto) 0 % (0-3) Neutrophils # (Auto) 8.6 x10^3uL (1.8-7.7) Lymphocytes # (Auto) 1.8 x10^3/uL (1.0-4.8) Monocytes # (Auto) 1.3 x10^3/uL (0.0-1.1) Eosinophils # (Auto) 0.5 x10^3/uL (0.0-0.7) Basophils # (Auto) 0.1 x10^3/uL (0.0-0.2) Sodium Level 136 mmol/L (136-145) Potassium Level 3.9 mmol/L (3.5-5.1) Chloride Level 103 mmol/L (98-107) Carbon Dioxide Level 30 mmol/L (21-32) Anion Gap 3 (6-14) Blood Urea Nitrogen 22 mg/dL (8-26) Creatinine 1.0 mg/dL (0.7-1.3) Estimated GFR (Cockcroft-Gault) 74.8 Glucose Level 109 mg/dL (70-99) Calcium Level 8.3 mg/dL (8.5-10.1) Phosphorus Level 3.7 mg/dL (2.6-4.7) Magnesium Level 1.7 mg/dL (1.8-2.4) Test 06/14/17 16:49 06/14/17 21:20 06/15/17 06:20 06/15/17 08:08 Glucose (Fingerstick) 130 mg/dL (70-99) 133 mg/dL (70-99) 114 mg/dL (70-99) Sodium Level 136 mmol/L (136-145) Potassium Level 4.0 mmol/L (3.5-5.1) Chloride Level 102 mmol/L (98-107) Carbon Dioxide Level 30 mmol/L (21-32) Anion Gap 4 (6-14) Blood Urea Nitrogen 23 mg/dL (8-26) Creatinine 1.1 mg/dL (0.7-1.3) Estimated GFR (Cockcroft-Gault) 67.0 Glucose Level 112 mg/dL (70-99) Calcium Level 8.1 mg/dL (8.5-10.1) Phosphorus Level 3.9 mg/dL (2.6-4.7) Magnesium Level 1.9 mg/dL (1.8-2.4) Laboratory Tests Test 06/14/17 12:54 06/14/17 16:49 06/14/17 21:20 06/15/17 06:20 Glucose (Fingerstick) 138 mg/dL (70-99) 130 mg/dL (70-99) 133 mg/dL (70-99) Sodium Level 136 mmol/L (136-145) Potassium Level 4.0 mmol/L (3.5-5.1) Chloride Level 102 mmol/L (98-107) Carbon Dioxide Level 30 mmol/L (21-32) Anion Gap 4 (6-14) Blood Urea Nitrogen 23 mg/dL (8-26) Creatinine 1.1 mg/dL (0.7-1.3) Estimated GFR (Cockcroft-Gault) 67.0 Glucose Level 112 mg/dL (70-99) Calcium Level 8.1 mg/dL (8.5-10.1) Phosphorus Level 3.9 mg/dL (2.6-4.7) Magnesium Level 1.9 mg/dL (1.8-2.4) Test 06/15/17 08:08 Glucose (Fingerstick) 114 mg/dL (70-99) Problem List Problems Medical Problems: (1) Abdominal pain Status: Acute (2) Elevated brain natriuretic peptide (BNP) level Status: Acute (3) Hypomagnesemia Status: Acute (4) Perforated abdominal viscus Status: Acute Assessment/Plan POD 9 perf colon asked day nurse to stagger once daily meds try 24 hrs of scheduled pain meds continue ambulation Problems: MARY MARTINEZ MD Jun 15, 2017 10:37
[2017-06-15] MEDS: POTASSIUM CHLORIDE 20 MEQ TABLET.ER. PO SCH (10:42)
[2017-06-15] MEDS: CEFPODOXIME PROXETIL 100 MG TABLET. PO SCH ×2 (10:43→21:49)
[2017-06-15] MEDS: metroNIDAZOLE 500 MG TABLET PO SCH ×2 (10:43→21:48)
[2017-06-15] MEDS: POTASSIUM PHOSPHATE,MONOBASIC 500 MG TABLET. PO SCH ×2 (10:43→21:48)
[2017-06-15] MEDS: MAGNESIUM OXIDE 400 MG TABLET PO SCH (10:44)
[2017-06-15] MEDS: hydroCHLOROthiazide 25 MG TABLET PO SCH (10:44)
[2017-06-15] MEDS: METOPROLOL SUCC 24HR ER 100 MG TAB.ER.24H. PO SCH (10:45)
[2017-06-15] MEDS: LISINOPRIL 20 MG TABLET PO SCH (10:45)
[2017-06-15 11:00] VITALS: BP 112/54
[2017-06-15] MEDS: oxyCODONE/APAP 10/325 1 TAB TABLET PO SCH ×4 (12:07→23:58)
--- NOTE | 2017-06-15 13:27 | PDOC ---
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 Pt was seen at bedside. Pt is in no acute distress. Pt had surgery on 06/07, now has a left lower ostomy and a darryn chavez drain. Pt is being followed by infectious disease, general surgery, pulmonology, and cardiology. Pt continues to have leukocytosis. Will continue to monitor. Vitals Vitals Vital Signs Date Time Temp Pulse Resp B/P (MAP) Pulse Ox O2 Delivery O2 Flow Rate FiO2 06/15/17 11:00 98.4 65 18 112/54 (73) 95 Room Air 98.4 Physical Exam Physical Exam General: Alert, Oriented X3, Cooperative, No acute distress Heart: Regular rate, Normal S1, Normal S2, No murmurs Lungs: Clear Abdomen: Soft, No masses, Other (minimal incisional drainage, stoma viable, minimal output) Extremities: No edema, Normal pulses Skin: No rashes, No breakdown Labs LABS Laboratory Tests Test 06/14/17 16:49 06/14/17 21:20 06/15/17 06:20 06/15/17 08:08 Glucose (Fingerstick) 130 mg/dL (70-99) 133 mg/dL (70-99) 114 mg/dL (70-99) Sodium Level 136 mmol/L (136-145) Potassium Level 4.0 mmol/L (3.5-5.1) Chloride Level 102 mmol/L (98-107) Carbon Dioxide Level 30 mmol/L (21-32) Anion Gap 4 (6-14) Blood Urea Nitrogen 23 mg/dL (8-26) Creatinine 1.1 mg/dL (0.7-1.3) Estimated GFR (Cockcroft-Gault) 67.0 Glucose Level 112 mg/dL (70-99) Calcium Level 8.1 mg/dL (8.5-10.1) Phosphorus Level 3.9 mg/dL (2.6-4.7) Magnesium Level 1.9 mg/dL (1.8-2.4) Test 06/15/17 11:14 Glucose (Fingerstick) 169 mg/dL (70-99) Review of Systems Review of Systems Pt seen at bedside resting comfortably. 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 Labs Laboratory Tests Test 06/13/17 21:05 06/14/17 05:50 06/14/17 07:52 06/14/17 12:54 Glucose (Fingerstick) 151 mg/dL (70-99) 123 mg/dL (70-99) 138 mg/dL (70-99) White Blood Count 12.3 x10^3/uL (4.0-11.0) Red Blood Count 3.21 x10^6/uL (4.30-5.70) Hemoglobin 9.5 g/dL (13.0-17.5) Hematocrit 27.7 % (39.0-53.0) Mean Corpuscular Volume 86 fL (79-100) Mean Corpuscular Hemoglobin 30 pg (25-35) Mean Corpuscular Hemoglobin Concent 34 g/dL (31-37) Red Cell Distribution Width 14.0 % (11.5-14.5) Platelet Count 462 x10^3/uL (140-400) Neutrophils (%) (Auto) 70 % (31-73) Lymphocytes (%) (Auto) 15 % (24-48) Monocytes (%) (Auto) 11 % (0-9) Eosinophils (%) (Auto) 4 % (0-3) Basophils (%) (Auto) 0 % (0-3) Neutrophils # (Auto) 8.6 x10^3uL (1.8-7.7) Lymphocytes # (Auto) 1.8 x10^3/uL (1.0-4.8) Monocytes # (Auto) 1.3 x10^3/uL (0.0-1.1) Eosinophils # (Auto) 0.5 x10^3/uL (0.0-0.7) Basophils # (Auto) 0.1 x10^3/uL (0.0-0.2) Sodium Level 136 mmol/L (136-145) Potassium Level 3.9 mmol/L (3.5-5.1) Chloride Level 103 mmol/L (98-107) Carbon Dioxide Level 30 mmol/L (21-32) Anion Gap 3 (6-14) Blood Urea Nitrogen 22 mg/dL (8-26) Creatinine 1.0 mg/dL (0.7-1.3) Estimated GFR (Cockcroft-Gault) 74.8 Glucose Level 109 mg/dL (70-99) Calcium Level 8.3 mg/dL (8.5-10.1) Phosphorus Level 3.7 mg/dL (2.6-4.7) Magnesium Level 1.7 mg/dL (1.8-2.4) Test 06/14/17 16:49 06/14/17 21:20 06/15/17 06:20 06/15/17 08:08 Glucose (Fingerstick) 130 mg/dL (70-99) 133 mg/dL (70-99) 114 mg/dL (70-99) Sodium Level 136 mmol/L (136-145) Potassium Level 4.0 mmol/L (3.5-5.1) Chloride Level 102 mmol/L (98-107) Carbon Dioxide Level 30 mmol/L (21-32) Anion Gap 4 (6-14) Blood Urea Nitrogen 23 mg/dL (8-26) Creatinine 1.1 mg/dL (0.7-1.3) Estimated GFR (Cockcroft-Gault) 67.0 Glucose Level 112 mg/dL (70-99) Calcium Level 8.1 mg/dL (8.5-10.1) Phosphorus Level 3.9 mg/dL (2.6-4.7) Magnesium Level 1.9 mg/dL (1.8-2.4) Test 06/15/17 11:14 Glucose (Fingerstick) 169 mg/dL (70-99) Laboratory Tests Test 06/14/17 16:49 06/14/17 21:20 06/15/17 06:20 06/15/17 08:08 Glucose (Fingerstick) 130 mg/dL (70-99) 133 mg/dL (70-99) 114 mg/dL (70-99) Sodium Level 136 mmol/L (136-145) Potassium Level 4.0 mmol/L (3.5-5.1) Chloride Level 102 mmol/L (98-107) Carbon Dioxide Level 30 mmol/L (21-32) Anion Gap 4 (6-14) Blood Urea Nitrogen 23 mg/dL (8-26) Creatinine 1.1 mg/dL (0.7-1.3) Estimated GFR (Cockcroft-Gault) 67.0 Glucose Level 112 mg/dL (70-99) Calcium Level 8.1 mg/dL (8.5-10.1) Phosphorus Level 3.9 mg/dL (2.6-4.7) Magnesium Level 1.9 mg/dL (1.8-2.4) Test 06/15/17 11:14 Glucose (Fingerstick) 169 mg/dL (70-99) Microbiology 06/06/17 Anaerobic/Aerobic Culture - Final, Complete 06/06/17 Anaerobic Culture Result 1 (AISSATOU) - Final, Complete 06/06/17 Anaerobic Culture Result 2 (AISSATOU) - Final, Complete 06/06/17 Aerobic Culture - Final, Complete 06/06/17 Aerobic Culture Result 1 (AISSATOU) - Final, Complete 06/06/17 Aerobic Culture Result 2 (AISSATOU) - Final, Complete 06/06/17 Antimicrobic Susceptibility - Final, Complete Medications Current Medications Sodium Chloride 1,000 ml @ 1,000 mls/hr 1X ONCE IV Last administered on 08:22; Start 06/06/17 at 08:30; Stop 06/06/17 at 09:29; Status DC Ondansetron HCl (Zofran) 8 mg 1X ONCE IV Last administered on 06/06/17 08:23 ; Start 06/06/17 at 08:30; Stop 06/06/17 at 08:31; Status DC Morphine Sulfate 5 mg 1X ONCE IV Last administered on 06/06/17 08:29; Start 06/06/17 at 08:30; Stop 06/06/17 at 08:31; Status DC Potassium Chloride (Klor-Con) 40 meq 1X ONCE PO Last administered on 09:31; Start 06/06/17 at 08:30; Stop 06/06/17 at 08:31; Status DC Potassium Chloride/Sodium Chloride 1,000 ml @ 250 mls/hr 1X ONCE IV Last administered on 06/06/17 09:36; Start 06/06/17 at 08:30; Stop 06/06/17 at 12:29 ; Status DC Iohexol (Omnipaque 300 Mg/ml) 60 ml 1X ONCE IV Last administered on 06/06/17 08:51; Start 06/06/17 at 08:45; Stop 06/06/17 at 08:46; Status DC Magnesium Oxide (Magnesium Oxide) 800 mg 1X STAT PO Last administered on 09:31; Start 06/06/17 at 08:37; Stop 06/06/17 at 08:40; Status DC Info (Do NOT chart on this entry -- for MONITORING) 1 each PRN DAILY PRN MC SEE COMMENTS; Start 06/06/17 at 08:45; Stop 06/08/17 at 08:44; Status DC Metronidazole 100 ml @ 100 mls/hr 1X ONCE IV Last administered on 06/06/17 10:00; Start 06/06/17 at 09:30; Stop 06/06/17 at 10:29; Status DC Levofloxacin/ Dextrose (Levaquin Per Pharmacy) 1 each PRN DAILY PRN MC SEE COMMENTS; Start 06/06/17 at 09:30; Stop 06/08/17 at 09:20; Status DC Levofloxacin/ Dextrose 100 ml @ 100 mls/hr 1X ONCE IV ; Start 06/06/17 at 09: 30; Stop 06/06/17 at 10:29; Status DC Levofloxacin/ Dextrose 100 ml @ 100 mls/hr Q24H IV Last administered on 11:36; Start 06/07/17 at 10:00; Stop 06/08/17 at 08:03; Status DC Rocuronium [place] (Zemuron) 100 mg STK-MED ONCE .ROUTE ; Start 06/06/17 at 10: 28; Stop 06/06/17 at 10:29; Status DC Fentanyl Citrate (Fentanyl 5ml Vial) 250 mcg STK-MED ONCE .ROUTE ; Start at 10:28; Stop 06/06/17 at 10:29; Status DC Propofol 20 ml @ As Directed STK-MED ONCE IV ; Start 06/06/17 at 10:32; Stop at 10:33; Status DC Lidocaine HCl (Lidocaine Pf 2% Vial) 5 ml STK-MED ONCE .ROUTE ; Start 06/06/17 at 10:32; Stop 06/06/17 at 10:33; Status DC Ondansetron HCl (Zofran) 4 mg STK-MED ONCE .ROUTE ; Start 06/06/17 at 10:33; Stop 06/06/17 at 10:34; Status DC Dexamethasone Sodium Phosphate (Decadron) 20 mg STK-MED ONCE .ROUTE ; Start 06/06/17 at 10:33; Stop 06/06/17 at 10:34; Status DC Multivitamins 10 ml/Folic Acid 1 mg/Thiamine HCl 100 mg/Ringer's Solution 1, 011.2 ml @ 1,000 mls/ hr 1X ONCE IV ; Start 06/06/17 at 11:30; Stop 06/06/17 at 12:30; Status DC Fentanyl Citrate (Fentanyl 2ml Vial) 25 mcg PRN Q5MIN PRN IV MILD PAIN; Start 06/06/17 at 11:45; Stop 06/07/17 at 11:44; Status DC Fentanyl Citrate (Fentanyl 2ml Vial) 50 mcg PRN Q5MIN PRN IV MODERATE PAIN Last administered on 06/06/17 17:24; Start 06/06/17 at 11:45; Stop 06/07/17 at 11:44; Status DC Morphine Sulfate 1 mg PRN Q10MIN PRN IV SEVERE PAIN Last administered on t 15:38; Start 06/06/17 at 11:45; Stop 06/07/17 at 11:44; Status DC Ringer's Solution 1,000 ml @ 30 mls/hr Q24H IV ; Start 06/06/17 at 11:39; Stop 06/06/17 at 23:38; Status DC Lidocaine HCl (Xylocaine-Mpf 1% Vial) 2 ml 1X PRN PRN ID IV START; Start at 11:45; Stop 06/07/17 at 11:44; Status DC Hydromorphone HCl (Dilaudid) 0.5 mg PRN Q10MIN PRN IV SEV PAIN, Second choice; Start 06/06/17 at 11:45; Stop 06/07/17 at 11:44; Status DC Prochlorperazine Edisylate (Compazine) 5 mg PACU PRN PRN IV NAUSEA, MRX1; Start 06/06/17 at 11:45; Stop 06/07/17 at 11:44; Status DC Phenylephrine HCl (Pedro-Synephrine Inj) 10 mg STK-MED ONCE .ROUTE ; Start at 11:58; Stop 06/06/17 at 11:59; Status DC Sodium Chloride (Sodium Chloride) 50 ml STK-MED ONCE IJ ; Start 06/06/17 at 11: 58; Stop 06/06/17 at 11:59; Status DC Sevoflurane (Ultane) 90 ml STK-MED ONCE IH ; Start 06/06/17 at 13:52; Stop 06/06 at 13:53; Status DC Neostigmine Methylsulfate 5 mg STK-MED ONCE .ROUTE ; Start 06/06/17 at 13:52; Stop 06/06/17 at 13:53; Status DC Glycopyrrolate (Robinul) 1 mg STK-MED ONCE .ROUTE ; Start 06/06/17 at 13:52; Stop 06/06/17 at 13:53; Status DC Fentanyl Citrate (Fentanyl 2ml Vial) 100 mcg STK-MED ONCE .ROUTE ; Start at 14:18; Stop 06/06/17 at 14:19; Status DC Diphenhydramine HCl (Benadryl) 25 mg PRN Q6HRS PRN IV ITCHING; Start 06/06/17 at 14:30 Enoxaparin Sodium (Lovenox 40mg Syringe) 40 mg Q24H SQ Last administered on t 15:00; Start 06/06/17 at 15:00; Stop 06/06/17 at 15:41; Status DC Sodium Chloride (Normal Saline Flush) 3 ml QSHIFT PRN IV AFTER MEDS AND BLOOD DRAWS; Start 06/06/17 at 14:30 Potassium Chloride/Sodium Chloride 1,000 ml @ 100 mls/hr Q10H IV Last administered on 06/07/17t 20:00; Start 06/06/17 at 15:00; Stop 06/08/17 at 09: 20; Status DC Hydromorphone HCl 30 ml @ 0 mls/hr CONT PRN PRN IV PROTOCOL; Start 06/06/17 at 14:30; Stop 06/06/17 at 17:30; Status DC Ondansetron HCl (Zofran) 4 mg PRN Q6HRS PRN IV NAUESA, 1ST CHOICE; Start at 14:30 Epinephrine (S2 Racepinephrine) 0.5 ml STK-MED ONCE .ROUTE ; Start 06/06/17 at 14:35; Stop 06/06/17 at 14:36; Status DC Propofol 50 ml @ As Directed STK-MED ONCE IV ; Start 06/06/17 at 14:38; Stop at 14:39; Status DC Succinylcholine Chloride (Anectine) 200 mg STK-MED ONCE .ROUTE ; Start 06/06/17 at 14:40; Stop 06/06/17 at 14:41; Status DC Epinephrine (S2 Racepinephrine) 0.5 ml 1X ONCE NEB Last administered on 14:43; Start 06/06/17 at 14:36; Stop 06/06/17 at 14:43; Status DC Midazolam HCl (Versed) 2 mg STK-MED ONCE .ROUTE ; Start 06/06/17 at 14:48; Stop 06/06/17 at 14:49; Status DC Propofol 100 ml @ 0 mls/hr CONT PRN IV SEE I/O RECORD; Start 06/06/17 at 15:15 ; Stop 06/08/17 at 09:20; Status DC Propofol 50 ml @ As Directed STK-MED ONCE IV ; Start 06/06/17 at 15:03; Stop at 15:04; Status DC Dexamethasone Sodium Phosphate (Decadron) 12 mg 1X ONCE IV Last administered on 06/06/17 15:09; Start 06/06/17 at 15:00; Stop 06/06/17 at 15:06; Status DC Dexamethasone Sodium Phosphate (Decadron) 4 mg STK-MED ONCE .ROUTE ; Start 06/06 at 15:05; Stop 06/06/17 at 15:06; Status DC Propofol 50 ml @ 0 mls/hr 1X ONCE IV Last administered on 06/06/17 15:02; Start 06/06/17 at 15:15; Stop 06/06/17 at 15:16; Status DC Succinylcholine Chloride (Anectine) 200 mg 1X ONCE IV ; Start 06/06/17 at 15:15 ; Stop 06/06/17 at 15:16; Status DC Midazolam HCl (Versed) 2 mg 1X ONCE IV ; Start 06/06/17 at 15:15; Stop at 15:16; Status DC Cellulose 1 each STK-MED ONCE .ROUTE Last administered on 06/06/17 13:35; Start 06/06/17 at 14:19; Stop 06/06/17 at 15:20; Status DC Enoxaparin Sodium (Lovenox 40mg Syringe) 40 mg Q24H SQ Last administered on 08:48; Start 06/07/17 at 09:00; Stop 06/12/17 at 10:16; Status DC Metronidazole 100 ml @ 100 mls/hr Q12HR IV Last administered on 06/12/17 21: 32; Start 06/06/17 at 21:00; Stop 06/13/17 at 07:45; Status DC Multivitamins 10 ml/Folic Acid 1 mg/Thiamine HCl 100 mg/Dextrose/ Lactated Ringer's 1,011.2 ml @ 100 mls/ hr DAILY IV Last administered on 06/07/17 09: 21; Start 06/07/17 at 09:00; Stop 06/08/17 at 08:06; Status DC Lorazepam (Ativan) 2 mg PRN Q4HRS PRN IV ANXIETY / AGITATION; Start 06/06/17 at 15:45; Stop 06/12/17 at 10:16; Status DC Famotidine (Pepcid) 20 mg BID IVP Last administered on 06/08/17 11:18; Start 06/06/17 at 21:00; Stop 06/09/17 at 07:53; Status DC Morphine Sulfate 2 mg PRN Q2HR PRN IV PAIN Last administered on 06/10/17 22: 59; Start 06/06/17 at 15:45 Morphine Sulfate 4 mg PRN Q2HR PRN IV PAIN Last administered on 06/11/17 08: 31; Start 06/06/17 at 15:45 Ondansetron HCl (Zofran) 4 mg PRN Q6HRS PRN IV NAUSEA/VOMITING; Start 06/06/17 at 15:45; Stop 06/06/17 at 15:45; Status DC Fentanyl Citrate 30 ml @ 0 mls/hr CONT PRN IV PROTOCOL Last administered on 02:54; Start 06/06/17 at 17:30; Stop 06/07/17 at 10:39; Status DC Midazolam HCl 100 ml @ 0 mls/hr CONT PRN IV SEE I/O RECORD; Start 06/06/17 at 23:00; Stop 06/08/17 at 09:20; Status DC Sodium Chloride 1,000 ml @ 1,000 mls/hr 1X ONCE IV Last administered on 23:34; Start 06/06/17 at 23:00; Stop 06/06/17 at 23:59; Status DC Magnesium Sulfate/ Dextrose 50 ml @ 25 mls/hr 1X ONCE IV Last administered on 06/07/17 09:28; Start 06/07/17 at 08:15; Stop 06/07/17 at 10:14; Status DC Info 1 each PRN DAILY PRN MC SEE COMMENTS Last administered on 06/14/17 12:51 ; Start 06/07/17 at 09:30 Methylprednisolone Sodium Succinate (SOLU-Medrol 125MG VIAL) 50 mg DAILY IV Last administered on 06/12/17 08:47; Start 06/07/17 at 11:00; Stop 06/12/17 at 10:16; Status DC Hydromorphone HCl 30 ml @ 0 mls/hr CONT PRN PRN IV PROTOCOL Last administered on 06/07/17 11:16; Start 06/07/17 at 10:45; Stop 06/09/17 at 08:57; Status DC Sodium Chloride 90 meq/Potassium Chloride 50 meq/ Potassium Phosphate 13.6 mmol/ Magnesium Sulfate 10 meq/ Calcium Gluconate 10 meq/ Multivitamins 10 ml/Chromium / Copper/Manganese/ Seleni/Zn 1 ml/ Total Parenteral Nutrition/Amino Acids/ Dextrose/ Fat Emulsion Intravenous 1,512 ml @ 63 mls/hr TPN CONT IV Last administered on 06/07/17 22:04; Start 06/07/17 at 22:00; Stop 06/08/17 at 21 :59; Status DC Influenza Virus Vaccine Quadrival (Fluarix Quad [id number] Syringe) 0.5 ml ONCE ONCE VAX IM Last administered on 06/08/17 13:23; Start 06/07/17 at 16:15; Stop 06/07/17 at 16:35; Status DC Pneumococcal Polyvalent Vaccine (Do NOT chart on this placeholder) 1 each PRN 1X PRN MC SEE COMMENTS; Start 06/07/17 at 16:45; Status UNV Pneumococcal Polyvalent Vaccine (Pneumovax 23) 0.5 ml ONCE ONCE VAX IM Last administered on 06/08/17 13:25; Start 06/07/17 at 17:00; Stop 06/07/17 at 17 :01; Status DC Ceftriaxone Sodium 1 gm/ Sodium Chloride 50 ml @ 100 mls/hr Q24H IV Last administered on 06/12/17 08:45; Start 06/08/17 at 09:00; Stop 06/13/17 at 07 :45; Status DC Sodium Phosphate 20 mmol/Dextrose 256.6667 ml @ 64.167 m... 1X ONCE IV Last administered on 06/08/17 08:58; Start 06/08/17 at 09:00; Stop 06/08/17 at 12 :59; Status DC Multi-Ingred Cream/Lotion/Oil/ Oint (Artificial Tears Eye Oint) 1 juvenal PRN Q1HR PRN OU DRY EYE; Start 06/08/17 at 09:15 Sodium Chloride 90 meq/Potassium Chloride 40 meq/ Potassium Phosphate 17 mmol/ Magnesium Sulfate 10 meq/Calcium Gluconate 10 meq/ Multivitamins 10 ml/Chromium / Copper/Manganese/ Seleni/Zn 1 ml/ Total Parenteral Nutrition/Amino Acids/ Dextrose/ Fat Emulsion Intravenous 1,512 ml @ 63 mls/hr TPN CONT IV Last administered on 06/08/17 22:42; Start 06/08/17 at 22:00; Stop 06/09/17 at 21 :59; Status DC Diclofenac Sodium (Voltaren) 1 juvenal BID TP Last administered on 06/12/17 21:00 ; Start 06/08/17 at 21:00 Oxycodone/ Acetaminophen (Percocet 10/325) 1 tab PRN Q4HRS PRN PO pain Last administered on 06/15/17 08:48; Start 06/09/17 at 08:00; Stop 06/15/17 at 10 :39; Status DC Magnesium Sulfate/ Dextrose 50 ml @ 25 mls/hr 1X ONCE IV Last administered on 06/09/17 09:31; Start 06/09/17 at 08:00; Stop 06/09/17 at 09:59; Status DC Potassium Phosphate (K-Phos Original) 500 mg BID PO Last administered on 10:43; Start 06/09/17 at 09:00 Lidocaine (Lidoderm) 1 patch DAILY TD Last administered on 06/09/17 09:36; Start 06/09/17 at 09:00; Stop 06/10/17 at 20:50; Status DC Potassium Phosphate 13.6 mmol/Sodium Chloride 104.5333 ml @ 52.267 m... 1X ONCE IV Last administered on 06/09/17 13:51; Start 06/09/17 at 13:30; Stop 06/09/17 at 15:29; Status DC Sodium Chloride 40 meq/Sodium Acetate 50 meq/ Potassium Chloride 40 meq/ Potassium Phosphate 20 mmol/ Magnesium Sulfate 15 meq/Calcium Gluconate 10 meq/ Multivitamins 10 ml/Chromium/ Copper/Manganese/ Seleni/Zn 1 ml/ Total Parenteral Nutrition/Amino Acids/Dextrose/ Fat Emulsion Intravenous 1,512 ml @ 63 mls/hr TPN CONT IV Last administered on 06/09/17 22:11; Start 06/09/17 at 22:00; Stop 06/10/17 at 21:59; Status DC Potassium Chloride (Klor-Con) 40 meq 1X ONCE PO Last administered on 10:40; Start 06/10/17 at 09:30; Stop 06/10/17 at 09:31; Status DC Potassium Chloride (Klor-Con) 20 meq DAILYWBKFT PO Last administered on 10:42; Start 06/11/17 at 08:00 Magnesium Sulfate/ Dextrose 50 ml @ 25 mls/hr 1X ONCE IV Last administered on 06/10/17 10:38; Start 06/10/17 at 10:00; Stop 06/10/17 at 11:59; Status DC Sodium Chloride 40 meq/Sodium Acetate 50 meq/ Potassium Acetate 60 meq/ Potassium Phosphate 18 mmol/ Magnesium Sulfate 18 meq/Calcium Gluconate 10 meq/ Multivitamins 10 ml/Chromium/ Copper/Manganese/ Seleni/Zn 1 ml/ Total Parenteral Nutrition/Amino Acids/Dextrose/ Fat Emulsion Intravenous 1,512 ml @ 63 mls/hr TPN CONT IV Last administered on 06/10/17 21:43; Start 06/10/17 at 22:00; Stop 06/11/17 at 22:00; Status DC Lidocaine (Lidoderm) 1 patch QHS TD Last administered on 06/10/17 21:37; Start 06/10/17 at 21:00; Stop 06/12/17 at 05:01; Status DC Magnesium Sulfate/ Dextrose 100 ml @ 25 mls/hr 1X ONCE IV Last administered on 06/11/17 11:22; Start 06/11/17 at 09:00; Stop 06/11/17 at 12:59; Status DC Lisinopril (Prinivil) 10 mg DAILY PO Last administered on 06/13/17 08:34; Start 06/11/17 at 13:00; Stop 06/13/17 at 09:19; Status DC Metoprolol Succinate (Toprol Xl) 100 mg DAILY PO Last administered on 10:45; Start 06/11/17 at 13:00 Hydrochlorothiazide (Hydrodiuril) 25 mg DAILY PO Last administered on 10:44; Start 06/11/17 at 13:00 Sodium Chloride 40 meq/Sodium Acetate 50 meq/ Potassium Acetate 60 meq/ Potassium Phosphate 18 mmol/ Magnesium Sulfate 18 meq/Calcium Gluconate 10 meq/ Multivitamins 10 ml/Chromium/ Copper/Manganese/ Seleni/Zn 1 ml/ Total Parenteral Nutrition/Amino Acids/Dextrose/ Fat Emulsion Intravenous 1,512 ml @ 63 mls/hr TPN CONT IV Last administered on 06/11/17 21:43; Start 06/11/17 at 22:00; Stop 06/12/17 at 21:59; Status DC Lidocaine (Lidoderm) 1 patch DAILY TD Last administered on 06/13/17 08:35; Start 06/12/17 at 09:00 Hydralazine HCl (Apresoline Inj) 10 mg PRN Q4HRS PRN IVP ELEVATED BP, SEE COMMENTS; Start 06/12/17 at 09:00 Magnesium Sulfate/ Dextrose 100 ml @ 25 mls/hr 1X ONCE IV Last administered on 06/12/17 09:53; Start 06/12/17 at 09:30; Stop 06/12/17 at 13:29; Status DC Magnesium Oxide (Magnesium Oxide) 400 mg DAILY PO Last administered on 10:44; Start 06/12/17 at 09:30 Lorazepam (Ativan) 1 mg PRN Q4HRS PRN IV ANXIETY / AGITATION; Start 06/12/17 at 10:15 Alprazolam (Xanax) 0.5 mg PRN Q8HRS PRN PO ANXIETY / AGITATION; Start at 10:15 Prednisone (Prednisone) 20 mg DAILY PO Last administered on 06/13/17 08:34; Start 06/13/17 at 09:00; Stop 06/13/17 at 15:06; Status DC Sodium Chloride 60 meq/Sodium Acetate 50 meq/ Potassium Acetate 60 meq/ Potassium Phosphate 18 mmol/ Magnesium Sulfate 27 meq/Calcium Gluconate 10 meq/ Multivitamins 10 ml/Chromium/ Copper/Manganese/ Seleni/Zn 1 ml/ Total Parenteral Nutrition/Amino Acids/Dextrose/ Fat Emulsion Intravenous 1,512 ml @ 63 mls/hr TPN CONT IV Last administered on 06/12/17 21:33; Start 06/12/17 at 22:00; Stop 06/13/17 at 21:59; Status DC Metronidazole (Flagyl) 500 mg Q12HR PO Last administered on 06/15/17 10:43; Start 06/13/17 at 09:00 Cefpodoxime Proxetil (Vantin) 200 mg BID PO Last administered on 06/15/17 10: 43; Start 06/13/17 at 09:00 Lisinopril (Prinivil) 20 mg DAILY PO Last administered on 06/15/17 10:45; Start 06/14/17 at 09:00 Lisinopril (Prinivil) 10 mg 1X ONCE PO ; Start 06/13/17 at 09:30; Stop at 09:31; Status DC Docusate Sodium (Colace) 100 mg BID PO Last administered on 06/15/17 08:51; Start 06/13/17 at 11:30 Sodium Chloride 60 meq/Sodium Acetate 50 meq/ Potassium Acetate 60 meq/ Potassium Phosphate 18 mmol/ Magnesium Sulfate 27 meq/Calcium Gluconate 10 meq/ Multivitamins 10 ml/Chromium/ Copper/Manganese/ Seleni/Zn 1 ml/ Total Parenteral Nutrition/Amino Acids/Dextrose/ Fat Emulsion Intravenous 1,512 ml @ 63 mls/hr TPN CONT IV Last administered on 06/13/17 22:31; Start 06/13/17 at 22:00; Stop 06/14/17 at 21:59; Status DC Lisinopril (Prinivil) 10 mg 1X ONCE PO Last administered on 06/13/17 16:18; Start 06/13/17 at 14:45; Stop 06/13/17 at 14:46; Status DC Polyethylene Glycol (miraLAX PACKET) 17 gm DAILY PO ; Start 06/14/17 at 09:30; Stop 06/14/17 at 11:47; Status DC Magnesium Hydroxide (Milk Of Magnesia) 2,400 mg PRN DAILY PRN PO CONSTIPATION; Start 06/14/17 at 09:30; Stop 06/14/17 at 11:47; Status DC Magnesium Hydroxide (Milk Of Magnesia) 2,400 mg 1X ONCE PO ; Start 06/14/17 at 09:30; Stop 06/14/17 at 09:31; Status Cancel Magnesium Sulfate/ Dextrose 100 ml @ 25 mls/hr 1X ONCE IV Last administered on 06/14/17 12:03; Start 06/14/17 at 10:00; Stop 06/14/17 at 13:59; Status DC Sodium Chloride 80 meq/Sodium Acetate 50 meq/ Potassium Acetate 60 meq/ Potassium Phosphate 18 mmol/ Magnesium Sulfate 27 meq/Calcium Gluconate 10 meq/ Multivitamins 10 ml/Chromium/ Copper/Manganese/ Seleni/Zn 1 ml/ Total Parenteral Nutrition/Amino Acids/Dextrose/ Fat Emulsion Intravenous 1,512 ml @ 63 mls/hr TPN CONT IV Last administered on 06/14/17 22:34; Start 06/14/17 at 22:00; Stop 06/15/17 at 21:59 Hydromorphone HCl (Dilaudid) 1 mg 1X ONCE IV Last administered on 06/14/17 15:47; Start 06/14/17 at 13:15; Stop 06/14/17 at 13:16; Status DC Iohexol (Omnipaque 300 Mg/ml) 75 ml 1X ONCE IV Last administered on 13:56; Start 06/14/17 at 13:30; Stop 06/14/17 at 13:31; Status DC Info (Do NOT chart on this entry -- for MONITORING) 1 each PRN DAILY PRN MC SEE COMMENTS; Start 06/14/17 at 13:15; Stop 06/16/17 at 13:14 Oxycodone/ Acetaminophen (Percocet 10/325) 1 tab Q4HRS PO Last administered on 06/15/17 12:07; Start 06/15/17 at 12:00 Active Scripts Active Reported [prednisone taper] Metoprolol Succinate ( Xl ) (Metoprolol Succinate) 100 Mg Tab.er.24h 1 Tab PO DAILY Lisinopril 10 Mg Tablet 1 Tab PO DAILY Hydrochlorothiazide Tablet (Hydrochlorothiazide) 50 Mg Tablet 25 Tab PO DAILY Vitals/I & O Vital Sign - Last 24 Hours 06/14/17 06/14/17 06/14/17 06/14/17 15:00 15:47 16:15 16:20 Temp 98.8 98.8 Pulse 58 Resp 18 B/P (MAP) 104/58 (73) Pulse Ox 93 O2 Delivery Room Air Room Air Room Air Room Air 06/14/17 06/14/17 06/14/17 06/14/17 19:00 20:10 20:10 23:59 Temp 98.5 97.8 98.5 97.8 Pulse 73 60 Resp 20 19 B/P (MAP) 97/64 (75) 147/67 (93) Pulse Ox 99 93 94 O2 Delivery Room Air Room Air Room Air Room Air 06/15/17 06/15/17 06/15/17 06/15/17 00:12 03:00 04:12 05:15 Temp 97.9 97.9 Pulse 68 Resp 17 17 16 B/P (MAP) 116/67 (83) Pulse Ox 93 95 95 95 O2 Delivery Room Air Room Air Room Air Room Air 06/15/17 06/15/17 06/15/17 06/15/17 07:00 10:45 10:45 11:00 Temp 98.5 98.4 98.5 98.4 Pulse 68 68 68 65 Resp 18 18 B/P (MAP) 134/77 (96) 134/77 134/77 112/54 (73) Pulse Ox 93 95 O2 Delivery Room Air Room Air LEYDI MOTT III DO Jun 15, 2017 13:27
[2017-06-15] MEDS: TPN PER PHARMACY MC PRN (14:22)
[2017-06-15 15:00] VITALS: BP 120/56
[2017-06-15 19:00] VITALS: BP 110/68
[2017-06-15] MEDS ORDERED: [UNRECOGNIZED DRUG - OTHER] IV SCH ×11 (22:00)
[2017-06-15] MEDS ORDERED: TOTAL PARENTERAL NUTRITION IV SCH ×11 (22:00)
[2017-06-15] MEDS ORDERED: DEXTROSE 70% IV SCH ×11 (22:00)
[2017-06-15] MEDS ORDERED: AMINO ACIDS IV SCH ×11 (22:00)
[2017-06-15 23:00] VITALS: BP 116/54
[2017-06-16 03:00] VITALS: BP 113/70
[2017-06-16] MEDS: oxyCODONE/APAP 10/325 1 TAB TABLET PO SCH ×5 (04:17→19:57)
[2017-06-16 04:45] LABS: BASO # 0.1 x10^3/uL (0.0-0.2); BASO % 1 % (0-3); EOS % 2 % (0-3); HEMATOCRIT 27.1 % (39.0-53.0); HEMOGLOBIN 9.2 g/dL (13.0-17.5); LYMPH # 0.9 x10^3/uL (1.0-4.8); LYMPH % 7 % (24-48); MEAN CORPUSCULAR HEMOGLOBIN 29 pg (25-35); MEAN CORPUSCULAR HGB CONC 34 g/dL (31-37); MEAN CORPUSCULAR VOLUME 85 fL (79-100); MONO % 10 % (0-9); NEUT % 81 % (31-73); PLATELET COUNT 528 x10^3/uL (140-400); RED BLOOD COUNT 3.18 x10^6/uL (4.30-5.70); WHITE BLOOD COUNT 13.4 x10^3/uL (4.0-11.0)
[2017-06-16 05:05] LABS: CALCIUM 8.3 mg/dL (8.5-10.1); GFR 74.8; POTASSIUM 3.8 mmol/L (3.5-5.1)
[2017-06-16 07:00] VITALS: BP 160/71
[2017-06-16] MEDS: LIDOCAINE (700MG/PATCH) PATCH. TD SCH (09:00)
--- NOTE | 2017-06-16 09:05 | PDOC ---
Infectious Disease Note Subjective Subjective Feeling cold A little fatigued today min output in ostomy ROS ROS GEN: Denies fevers, chills, sweats HEENT: Denies blurred vision, sore throat CV: Denies chest pain RESP: Denies shortness of air, cough GI: Denies n/v/d NEURO: Denies confusion, dizziness MSK: Denies weakness, joint pain/swelling Vital Sign Vital Signs Vital Signs Date Time Temp Pulse Resp B/P (MAP) Pulse Ox O2 Delivery O2 Flow Rate FiO2 06/16/17 05:20 16 94 Room Air 06/16/17 03:00 99.1 71 113/70 (84) 99.1 06/15/17 17:16 2.0 Physical Exam PHYSICAL EXAM GENERAL: NAD, Alert. T c99.7 HEENT: PERRL, OC/OP- clear NECK: Supple, no JVD, no LN LUNGS: Clear HEART: S1S2, no gallop, no murmur ABD: Soft, NT, min distension, Ostomy with min out put. Wound with trace erythema. GONZALES EXT: No edema, no cyanosis LOADING DOCK HAND: Alert, oriented x 3, no focal neurologic deficit SKIN: No rash IV: PICC LUE clean Labs Lab Laboratory Tests Test 06/15/17 11:14 06/15/17 16:23 06/15/17 20:52 06/16/17 04:30 Glucose (Fingerstick) 169 mg/dL (70-99) 120 mg/dL (70-99) 129 mg/dL (70-99) White Blood Count 13.4 x10^3/uL (4.0-11.0) Red Blood Count 3.18 x10^6/uL (4.30-5.70) Hemoglobin 9.2 g/dL (13.0-17.5) Hematocrit 27.1 % (39.0-53.0) Mean Corpuscular Volume 85 fL (79-100) Mean Corpuscular Hemoglobin 29 pg (25-35) Mean Corpuscular Hemoglobin Concent 34 g/dL (31-37) Red Cell Distribution Width 14.0 % (11.5-14.5) Platelet Count 528 x10^3/uL (140-400) Neutrophils (%) (Auto) 81 % (31-73) Lymphocytes (%) (Auto) 7 % (24-48) Monocytes (%) (Auto) 10 % (0-9) Eosinophils (%) (Auto) 2 % (0-3) Basophils (%) (Auto) 1 % (0-3) Neutrophils # (Auto) 10.8 x10^3uL (1.8-7.7) Lymphocytes # (Auto) 0.9 x10^3/uL (1.0-4.8) Monocytes # (Auto) 1.3 x10^3/uL (0.0-1.1) Eosinophils # (Auto) 0.3 x10^3/uL (0.0-0.7) Basophils # (Auto) 0.1 x10^3/uL (0.0-0.2) Sodium Level 135 mmol/L (136-145) Potassium Level 3.8 mmol/L (3.5-5.1) Chloride Level 100 mmol/L (98-107) Carbon Dioxide Level 29 mmol/L (21-32) Anion Gap 6 (6-14) Blood Urea Nitrogen 22 mg/dL (8-26) Creatinine 1.0 mg/dL (0.7-1.3) Estimated GFR (Cockcroft-Gault) 74.8 Glucose Level 137 mg/dL (70-99) Calcium Level 8.3 mg/dL (8.5-10.1) Magnesium Level 1.7 mg/dL (1.8-2.4) Test 06/16/17 08:07 Glucose (Fingerstick) 118 mg/dL (70-99) Micro CT abd 06/14 Impression: 1. Expected postoperative findings of partial colectomy and diverting colostomy. Small amount of gas within the abdomen is decreased from prior study, may be related to the remaining surgical drain. 2. No acute intra-abdominal findings. 3. Right lower lobe consolidation with air bronchograms concerning for pneumonia. Small right and trace left pleural effusion. Objective Assessment Perforated viscus with fecal peritonitis, E. coli & Prevotella spp. 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 S/p [address] improved Abdominal pain, better Respiratory failure - better - some RLL consolidation Chronic back pain HTN Leukocytosis, ? steroids - off steroids 06/13. Now with low grade temp Plan Plan of Care Discont Cefpodoxime/Flagyl Blood cults/UA C and S Add Meropenem/Vanc/Fluconazole CXR with recent CT showing RLL infiltrate monitor ostomy output F/u labs D/w THALIA Becerra MD Jun 16, 2017 09:05
[2017-06-16] MEDS: POTASSIUM PHOSPHATE,MONOBASIC 500 MG TABLET. PO SCH ×2 (09:11→20:47)
[2017-06-16] MEDS: POTASSIUM CHLORIDE 20 MEQ TABLET.ER. PO SCH (09:11)
[2017-06-16] MEDS: DOCUSATE SODIUM 100 MG CAPSULE. PO SCH ×2 (09:12→20:47)
[2017-06-16] MEDS: METOPROLOL SUCC 24HR ER 100 MG TAB.ER.24H. PO SCH (09:14)
[2017-06-16] MEDS: hydroCHLOROthiazide 25 MG TABLET PO SCH (09:14)
[2017-06-16] MEDS: LISINOPRIL 20 MG TABLET PO SCH (09:15)
[2017-06-16] MEDS: MAGNESIUM OXIDE 400 MG TABLET PO SCH (09:15)
[2017-06-16] MEDS: DICLOFENAC SODIUM 1% TOPICAL GEL 100GM TUBE. TP SCH ×2 (09:16→20:47)
[2017-06-16] MEDS ORDERED: MAGNESIUM SULFATE 2GM 50 ML IV ONE (10:30)
[2017-06-16 10:50] LABS: BILIRUBIN,URINE NEGATIVE (NEG); GLUCOSE,URINE NEGATIVE (NEG); NITRITE,URINE NEGATIVE (NEG); PH,URINE 7.5; PROTEIN,URINE NEGATIVE (NEG-TRACE)
[2017-06-16 11:00] VITALS: BP 107/61
[2017-06-16] MEDS ORDERED: VANCOMYCIN 2 GM in IV DEXTROSE 5% 500 ML IV ONE (11:00)
[2017-06-16 11:06] LABS: BACTERIA,URINE FEW /HPF (0-FEW); RBC,URINE 0 /HPF (0-2); WBC,URINE 0 /HPF (0-4)
--- NOTE | 2017-06-16 11:14 | RAD ---
2 view chest 06/16/2017 Indication: Right lower lobe infiltrate. Fever. Comparison study: Chest radiograph June 07, 2017 Findings: Interval extubation. No pneumothorax is identified. There is a left upper extremity PICC line with tip at the cavoatrial junction. Interval development of nonspecific mild bilateral basilar opacities which could represent atelectasis, infiltrate, or trace effusion. Heart size is normal. No acute osseous changes are identified in the interim. Impression: 1. Interval extubation 2. Interval development of mild nonspecific basilar opacities which could represent atelectasis, infiltrate, or trace effusion
[2017-06-16] MEDS: FLUCONAZOLE 400MG/200ML PREMIX 200 ML IV SCH (11:56)
[2017-06-16] MEDS: VANCOMYCIN PER PHARMACY MC PRN ×2 (12:37→12:58)
[2017-06-16] MEDS: TPN PER PHARMACY MC PRN (13:02)
--- NOTE | 2017-06-16 13:05 | PDOC ---
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 Persistent hypomagnesemia HTN HLD NEW onset afib with RVR, sinus now hypokalemia, corrected Elcoholism, hx DESTINEE, dehydration, vasomotor mild malnutrition HYPophosphatemia, corrected Acute on chronic sciatica plan: fu with id, sx back to [facility], vanco with ID on 06/16 CXR repeated 06/16 not significant on full liquid only TPN pain control, off [employer] replete Mag likely depressed gi, dvt ppx on HTN meds PTOT History of Present Illness History of Present Illness ROS: chills, sob or chest pain low T, 99.7 today not happy about care in hosp since yesterday, could be depressed higher WBC to 13 today still no solid BM, has very little liquid BM in the colostomy Vitals Vitals Vital Signs Date Time Temp Pulse Resp B/P (MAP) Pulse Ox O2 Delivery O2 Flow Rate FiO2 06/16/17 12:20 96 Room Air 2.0 06/16/17 11:00 98.8 69 18 107/61 (76) 98.8 Physical Exam Physical Exam General: Alert, Oriented X3, Cooperative, No acute distress Heart: Regular rate, Normal S1, Normal S2, No murmurs Lungs: Clear Abdomen: Soft, No masses, Other (minimal incisional drainage, stoma viable, minimal output with liquid BM. severe tenderness at sx wound with ladarius on) Extremities: No edema, Normal pulses Skin: No rashes, No breakdown Labs LABS Laboratory Tests Test 06/15/17 16:23 06/15/17 20:52 06/16/17 04:30 06/16/17 08:07 Glucose (Fingerstick) 120 mg/dL (70-99) 129 mg/dL (70-99) 118 mg/dL (70-99) White Blood Count 13.4 x10^3/uL (4.0-11.0) Red Blood Count 3.18 x10^6/uL (4.30-5.70) Hemoglobin 9.2 g/dL (13.0-17.5) Hematocrit 27.1 % (39.0-53.0) Mean Corpuscular Volume 85 fL (79-100) Mean Corpuscular Hemoglobin 29 pg (25-35) Mean Corpuscular Hemoglobin Concent 34 g/dL (31-37) Red Cell Distribution Width 14.0 % (11.5-14.5) Platelet Count 528 x10^3/uL (140-400) Neutrophils (%) (Auto) 81 % (31-73) Lymphocytes (%) (Auto) 7 % (24-48) Monocytes (%) (Auto) 10 % (0-9) Eosinophils (%) (Auto) 2 % (0-3) Basophils (%) (Auto) 1 % (0-3) Neutrophils # (Auto) 10.8 x10^3uL (1.8-7.7) Lymphocytes # (Auto) 0.9 x10^3/uL (1.0-4.8) Monocytes # (Auto) 1.3 x10^3/uL (0.0-1.1) Eosinophils # (Auto) 0.3 x10^3/uL (0.0-0.7) Basophils # (Auto) 0.1 x10^3/uL (0.0-0.2) Sodium Level 135 mmol/L (136-145) Potassium Level 3.8 mmol/L (3.5-5.1) Chloride Level 100 mmol/L (98-107) Carbon Dioxide Level 29 mmol/L (21-32) Anion Gap 6 (6-14) Blood Urea Nitrogen 22 mg/dL (8-26) Creatinine 1.0 mg/dL (0.7-1.3) Estimated GFR (Cockcroft-Gault) 74.8 Glucose Level 137 mg/dL (70-99) Calcium Level 8.3 mg/dL (8.5-10.1) Phosphorus Level 3.1 mg/dL (2.6-4.7) Magnesium Level 1.7 mg/dL (1.8-2.4) Test 06/16/17 10:18 06/16/17 11:12 Urine Collection Type Unknown Urine Color Yellow Urine Clarity Cloudy Urine pH 7.5 Urine Specific [place] 1.010 Urine Protein Negative mg/dL (NEG-TRACE) Urine Glucose (UA) Negative mg/dL (NEG) Urine Ketones (Stick) Negative mg/dL (NEG) Urine Blood Negative (NEG) Urine Nitrite Negative (NEG) Urine Bilirubin Negative (NEG) Urine Urobilinogen Dipstick 1.0 mg/dL (0.2 mg/dL) Urine Leukocyte Esterase Negative (NEG) Urine RBC 0 /HPF (0-2) Urine WBC 0 /HPF (0-4) Urine Amorphous Sediment Present /HPF Urine Bacteria Few /HPF (0-FEW) Urine Mucus Slight /LPF Glucose (Fingerstick) 129 mg/dL (70-99) Assessment and Plan Assessmemt and Plan Problems Medical Problems: (1) Abdominal pain Status: Acute (2) Elevated brain natriuretic peptide (BNP) level Status: Acute (3) Hypomagnesemia Status: Acute (4) Perforated abdominal viscus Status: Acute Problems: Comment Review of Relevant I have reviewed the following items ananda (where applicable) has been applied. Labs Laboratory Tests Test 06/14/17 16:49 06/14/17 21:20 06/15/17 06:20 06/15/17 08:08 Glucose (Fingerstick) 130 mg/dL (70-99) 133 mg/dL (70-99) 114 mg/dL (70-99) Sodium Level 136 mmol/L (136-145) Potassium Level 4.0 mmol/L (3.5-5.1) Chloride Level 102 mmol/L (98-107) Carbon Dioxide Level 30 mmol/L (21-32) Anion Gap 4 (6-14) Blood Urea Nitrogen 23 mg/dL (8-26) Creatinine 1.1 mg/dL (0.7-1.3) Estimated GFR (Cockcroft-Gault) 67.0 Glucose Level 112 mg/dL (70-99) Calcium Level 8.1 mg/dL (8.5-10.1) Phosphorus Level 3.9 mg/dL (2.6-4.7) Magnesium Level 1.9 mg/dL (1.8-2.4) Test 06/15/17 11:14 06/15/17 16:23 06/15/17 20:52 06/16/17 04:30 Glucose (Fingerstick) 169 mg/dL (70-99) 120 mg/dL (70-99) 129 mg/dL (70-99) White Blood Count 13.4 x10^3/uL (4.0-11.0) Red Blood Count 3.18 x10^6/uL (4.30-5.70) Hemoglobin 9.2 g/dL (13.0-17.5) Hematocrit 27.1 % (39.0-53.0) Mean Corpuscular Volume 85 fL (79-100) Mean Corpuscular Hemoglobin 29 pg (25-35) Mean Corpuscular Hemoglobin Concent 34 g/dL (31-37) Red Cell Distribution Width 14.0 % (11.5-14.5) Platelet Count 528 x10^3/uL (140-400) Neutrophils (%) (Auto) 81 % (31-73) Lymphocytes (%) (Auto) 7 % (24-48) Monocytes (%) (Auto) 10 % (0-9) Eosinophils (%) (Auto) 2 % (0-3) Basophils (%) (Auto) 1 % (0-3) Neutrophils # (Auto) 10.8 x10^3uL (1.8-7.7) Lymphocytes # (Auto) 0.9 x10^3/uL (1.0-4.8) Monocytes # (Auto) 1.3 x10^3/uL (0.0-1.1) Eosinophils # (Auto) 0.3 x10^3/uL (0.0-0.7) Basophils # (Auto) 0.1 x10^3/uL (0.0-0.2) Sodium Level 135 mmol/L (136-145) Potassium Level 3.8 mmol/L (3.5-5.1) Chloride Level 100 mmol/L (98-107) Carbon Dioxide Level 29 mmol/L (21-32) Anion Gap 6 (6-14) Blood Urea Nitrogen 22 mg/dL (8-26) Creatinine 1.0 mg/dL (0.7-1.3) Estimated GFR (Cockcroft-Gault) 74.8 Glucose Level 137 mg/dL (70-99) Calcium Level 8.3 mg/dL (8.5-10.1) Phosphorus Level 3.1 mg/dL (2.6-4.7) Magnesium Level 1.7 mg/dL (1.8-2.4) Test 06/16/17 08:07 06/16/17 10:18 06/16/17 11:12 Glucose (Fingerstick) 118 mg/dL (70-99) 129 mg/dL (70-99) Urine Collection Type Unknown Urine Color Yellow Urine Clarity Cloudy Urine pH 7.5 Urine Specific [place] 1.010 Urine Protein Negative mg/dL (NEG-TRACE) Urine Glucose (UA) Negative mg/dL (NEG) Urine Ketones (Stick) Negative mg/dL (NEG) Urine Blood Negative (NEG) Urine Nitrite Negative (NEG) Urine Bilirubin Negative (NEG) Urine Urobilinogen Dipstick 1.0 mg/dL (0.2 mg/dL) Urine Leukocyte Esterase Negative (NEG) Urine RBC 0 /HPF (0-2) Urine WBC 0 /HPF (0-4) Urine Amorphous Sediment Present /HPF Urine Bacteria Few /HPF (0-FEW) Urine Mucus Slight /LPF Laboratory Tests Test 06/15/17 16:23 06/15/17 20:52 06/16/17 04:30 06/16/17 08:07 Glucose (Fingerstick) 120 mg/dL (70-99) 129 mg/dL (70-99) 118 mg/dL (70-99) White Blood Count 13.4 x10^3/uL (4.0-11.0) Red Blood Count 3.18 x10^6/uL (4.30-5.70) Hemoglobin 9.2 g/dL (13.0-17.5) Hematocrit 27.1 % (39.0-53.0) Mean Corpuscular Volume 85 fL (79-100) Mean Corpuscular Hemoglobin 29 pg (25-35) Mean Corpuscular Hemoglobin Concent 34 g/dL (31-37) Red Cell Distribution Width 14.0 % (11.5-14.5) Platelet Count 528 x10^3/uL (140-400) Neutrophils (%) (Auto) 81 % (31-73) Lymphocytes (%) (Auto) 7 % (24-48) Monocytes (%) (Auto) 10 % (0-9) Eosinophils (%) (Auto) 2 % (0-3) Basophils (%) (Auto) 1 % (0-3) Neutrophils # (Auto) 10.8 x10^3uL (1.8-7.7) Lymphocytes # (Auto) 0.9 x10^3/uL (1.0-4.8) Monocytes # (Auto) 1.3 x10^3/uL (0.0-1.1) Eosinophils # (Auto) 0.3 x10^3/uL (0.0-0.7) Basophils # (Auto) 0.1 x10^3/uL (0.0-0.2) Sodium Level 135 mmol/L (136-145) Potassium Level 3.8 mmol/L (3.5-5.1) Chloride Level 100 mmol/L (98-107) Carbon Dioxide Level 29 mmol/L (21-32) Anion Gap 6 (6-14) Blood Urea Nitrogen 22 mg/dL (8-26) Creatinine 1.0 mg/dL (0.7-1.3) Estimated GFR (Cockcroft-Gault) 74.8 Glucose Level 137 mg/dL (70-99) Calcium Level 8.3 mg/dL (8.5-10.1) Phosphorus Level 3.1 mg/dL (2.6-4.7) Magnesium Level 1.7 mg/dL (1.8-2.4) Test 06/16/17 10:18 06/16/17 11:12 Urine Collection Type Unknown Urine Color Yellow Urine Clarity Cloudy Urine pH 7.5 Urine Specific [place] 1.010 Urine Protein Negative mg/dL (NEG-TRACE) Urine Glucose (UA) Negative mg/dL (NEG) Urine Ketones (Stick) Negative mg/dL (NEG) Urine Blood Negative (NEG) Urine Nitrite Negative (NEG) Urine Bilirubin Negative (NEG) Urine Urobilinogen Dipstick 1.0 mg/dL (0.2 mg/dL) Urine Leukocyte Esterase Negative (NEG) Urine RBC 0 /HPF (0-2) Urine WBC 0 /HPF (0-4) Urine Amorphous Sediment Present /HPF Urine Bacteria Few /HPF (0-FEW) Urine Mucus Slight /LPF Glucose (Fingerstick) 129 mg/dL (70-99) Microbiology 06/06/17 Anaerobic/Aerobic Culture - Final, Complete 06/06/17 Anaerobic Culture Result 1 (AISSATOU) - Final, Complete 06/06/17 Anaerobic Culture Result 2 (AISSATOU) - Final, Complete 06/06/17 Aerobic Culture - Final, Complete 06/06/17 Aerobic Culture Result 1 (AISSATOU) - Final, Complete 06/06/17 Aerobic Culture Result 2 (AISSATOU) - Final, Complete 06/06/17 Antimicrobic Susceptibility - Final, Complete Medications Current Medications Sodium Chloride 1,000 ml @ 1,000 mls/hr 1X ONCE IV Last administered on 08:22; Start 06/06/17 at 08:30; Stop 06/06/17 at 09:29; Status DC Ondansetron HCl (Zofran) 8 mg 1X ONCE IV Last administered on 06/06/17 08:23 ; Start 06/06/17 at 08:30; Stop 06/06/17 at 08:31; Status DC Morphine Sulfate 5 mg 1X ONCE IV Last administered on 06/06/17 08:29; Start 06/06/17 at 08:30; Stop 06/06/17 at 08:31; Status DC Potassium Chloride (Klor-Con) 40 meq 1X ONCE PO Last administered on 09:31; Start 06/06/17 at 08:30; Stop 06/06/17 at 08:31; Status DC Potassium Chloride/Sodium Chloride 1,000 ml @ 250 mls/hr 1X ONCE IV Last administered on 06/06/17 09:36; Start 06/06/17 at 08:30; Stop 06/06/17 at 12:29 ; Status DC Iohexol (Omnipaque 300 Mg/ml) 60 ml 1X ONCE IV Last administered on 06/06/17 08:51; Start 06/06/17 at 08:45; Stop 06/06/17 at 08:46; Status DC Magnesium Oxide (Magnesium Oxide) 800 mg 1X STAT PO Last administered on 09:31; Start 06/06/17 at 08:37; Stop 06/06/17 at 08:40; Status DC Info (Do NOT chart on this entry -- for MONITORING) 1 each PRN DAILY PRN MC SEE COMMENTS; Start 06/06/17 at 08:45; Stop 06/08/17 at 08:44; Status DC Metronidazole 100 ml @ 100 mls/hr 1X ONCE IV Last administered on 06/06/17 10:00; Start 06/06/17 at 09:30; Stop 06/06/17 at 10:29; Status DC Levofloxacin/ Dextrose (Levaquin Per Pharmacy) 1 each PRN DAILY PRN MC SEE COMMENTS; Start 06/06/17 at 09:30; Stop 06/08/17 at 09:20; Status DC Levofloxacin/ Dextrose 100 ml @ 100 mls/hr 1X ONCE IV ; Start 06/06/17 at 09: 30; Stop 06/06/17 at 10:29; Status DC Levofloxacin/ Dextrose 100 ml @ 100 mls/hr Q24H IV Last administered on t 11:36; Start 06/07/17 at 10:00; Stop 06/08/17 at 08:03; Status DC Rocuronium Harmony (Zemuron) 100 mg STK-MED ONCE .ROUTE ; Start 06/06/17 at 10: 28; Stop 06/06/17 at 10:29; Status DC Fentanyl Citrate (Fentanyl 5ml Vial) 250 mcg STK-MED ONCE .ROUTE ; Start at 10:28; Stop 06/06/17 at 10:29; Status DC Propofol 20 ml @ As Directed STK-MED ONCE IV ; Start 06/06/17 at 10:32; Stop at 10:33; Status DC Lidocaine HCl (Lidocaine Pf 2% Vial) 5 ml STK-MED ONCE .ROUTE ; Start 06/06/17 at 10:32; Stop 06/06/17 at 10:33; Status DC Ondansetron HCl (Zofran) 4 mg STK-MED ONCE .ROUTE ; Start 06/06/17 at 10:33; Stop 06/06/17 at 10:34; Status DC Dexamethasone Sodium Phosphate (Decadron) 20 mg STK-MED ONCE .ROUTE ; Start 06/06/17 at 10:33; Stop 06/06/17 at 10:34; Status DC Multivitamins 10 ml/Folic Acid 1 mg/Thiamine HCl 100 mg/Ringer's Solution 1, 011.2 ml @ 1,000 mls/ hr 1X ONCE IV ; Start 06/06/17 at 11:30; Stop 06/06/17 at 12:30; Status DC Fentanyl Citrate (Fentanyl 2ml Vial) 25 mcg PRN Q5MIN PRN IV MILD PAIN; Start 06/06/17 at 11:45; Stop 06/07/17 at 11:44; Status DC Fentanyl Citrate (Fentanyl 2ml Vial) 50 mcg PRN Q5MIN PRN IV MODERATE PAIN Last administered on 06/06/17 17:24; Start 06/06/17 at 11:45; Stop 06/07/17 at 11:44; Status DC Morphine Sulfate 1 mg PRN Q10MIN PRN IV SEVERE PAIN Last administered on t 15:38; Start 06/06/17 at 11:45; Stop 06/07/17 at 11:44; Status DC Ringer's Solution 1,000 ml @ 30 mls/hr Q24H IV ; Start 06/06/17 at 11:39; Stop 06/06/17 at 23:38; Status DC Lidocaine HCl (Xylocaine-Mpf 1% Vial) 2 ml 1X PRN PRN ID IV START; Start at 11:45; Stop 06/07/17 at 11:44; Status DC Hydromorphone HCl (Dilaudid) 0.5 mg PRN Q10MIN PRN IV SEV PAIN, Second choice; Start 06/06/17 at 11:45; Stop 06/07/17 at 11:44; Status DC Prochlorperazine Edisylate (Compazine) 5 mg PACU PRN PRN IV NAUSEA, MRX1; Start 06/06/17 at 11:45; Stop 06/07/17 at 11:44; Status DC Phenylephrine HCl (Pedro-Synephrine Inj) 10 mg STK-MED ONCE .ROUTE ; Start at 11:58; Stop 06/06/17 at 11:59; Status DC Sodium Chloride (Sodium Chloride) 50 ml STK-MED ONCE IJ ; Start 06/06/17 at 11: 58; Stop 06/06/17 at 11:59; Status DC Sevoflurane (Ultane) 90 ml STK-MED ONCE IH ; Start 06/06/17 at 13:52; Stop 06/06 at 13:53; Status DC Neostigmine Methylsulfate 5 mg STK-MED ONCE .ROUTE ; Start 06/06/17 at 13:52; Stop 06/06/17 at 13:53; Status DC Glycopyrrolate (Robinul) 1 mg STK-MED ONCE .ROUTE ; Start 06/06/17 at 13:52; Stop 06/06/17 at 13:53; Status DC Fentanyl Citrate (Fentanyl 2ml Vial) 100 mcg STK-MED ONCE .ROUTE ; Start at 14:18; Stop 06/06/17 at 14:19; Status DC Diphenhydramine HCl (Benadryl) 25 mg PRN Q6HRS PRN IV ITCHING; Start 06/06/17 at 14:30 Enoxaparin Sodium (Lovenox 40mg Syringe) 40 mg Q24H SQ Last administered on 15:00; Start 06/06/17 at 15:00; Stop 06/06/17 at 15:41; Status DC Sodium Chloride (Normal Saline Flush) 3 ml QSHIFT PRN IV AFTER MEDS AND BLOOD DRAWS; Start 06/06/17 at 14:30 Potassium Chloride/Sodium Chloride 1,000 ml @ 100 mls/hr Q10H IV Last administered on 06/07/17 20:00; Start 06/06/17 at 15:00; Stop 06/08/17 at 09: 20; Status DC Hydromorphone HCl 30 ml @ 0 mls/hr CONT PRN PRN IV PROTOCOL; Start 06/06/17 at 14:30; Stop 06/06/17 at 17:30; Status DC Ondansetron HCl (Zofran) 4 mg PRN Q6HRS PRN IV NAUESA, 1ST CHOICE; Start at 14:30 Epinephrine (S2 Racepinephrine) 0.5 ml STK-MED ONCE .ROUTE ; Start 06/06/17 at 14:35; Stop 06/06/17 at 14:36; Status DC Propofol 50 ml @ As Directed STK-MED ONCE IV ; Start 06/06/17 at 14:38; Stop at 14:39; Status DC Succinylcholine Chloride (Anectine) 200 mg STK-MED ONCE .ROUTE ; Start 06/06/17 at 14:40; Stop 06/06/17 at 14:41; Status DC Epinephrine (S2 Racepinephrine) 0.5 ml 1X ONCE NEB Last administered on 14:43; Start 06/06/17 at 14:36; Stop 06/06/17 at 14:43; Status DC Midazolam HCl (Versed) 2 mg STK-MED ONCE .ROUTE ; Start 06/06/17 at 14:48; Stop 06/06/17 at 14:49; Status DC Propofol 100 ml @ 0 mls/hr CONT PRN IV SEE I/O RECORD; Start 06/06/17 at 15:15 ; Stop 06/08/17 at 09:20; Status DC Propofol 50 ml @ As Directed STK-MED ONCE IV ; Start 06/06/17 at 15:03; Stop at 15:04; Status DC Dexamethasone Sodium Phosphate (Decadron) 12 mg 1X ONCE IV Last administered on 06/06/17 15:09; Start 06/06/17 at 15:00; Stop 06/06/17 at 15:06; Status DC Dexamethasone Sodium Phosphate (Decadron) 4 mg STK-MED ONCE .ROUTE ; Start 06/06 at 15:05; Stop 06/06/17 at 15:06; Status DC Propofol 50 ml @ 0 mls/hr 1X ONCE IV Last administered on 06/06/17 15:02; Start 06/06/17 at 15:15; Stop 06/06/17 at 15:16; Status DC Succinylcholine Chloride (Anectine) 200 mg 1X ONCE IV ; Start 06/06/17 at 15:15 ; Stop 06/06/17 at 15:16; Status DC Midazolam HCl (Versed) 2 mg 1X ONCE IV ; Start 06/06/17 at 15:15; Stop at 15:16; Status DC Cellulose 1 each STK-MED ONCE .ROUTE Last administered on 06/06/17 13:35; Start 06/06/17 at 14:19; Stop 06/06/17 at 15:20; Status DC Enoxaparin Sodium (Lovenox 40mg Syringe) 40 mg Q24H SQ Last administered on 08:48; Start 06/07/17 at 09:00; Stop 06/12/17 at 10:16; Status DC Metronidazole 100 ml @ 100 mls/hr Q12HR IV Last administered on 06/12/17 21: 32; Start 06/06/17 at 21:00; Stop 06/13/17 at 07:45; Status DC Multivitamins 10 ml/Folic Acid 1 mg/Thiamine HCl 100 mg/Dextrose/ Lactated Ringer's 1,011.2 ml @ 100 mls/ hr DAILY IV Last administered on 06/07/17 09: 21; Start 06/07/17 at 09:00; Stop 06/08/17 at 08:06; Status DC Lorazepam (Ativan) 2 mg PRN Q4HRS PRN IV ANXIETY / AGITATION; Start 06/06/17 at 15:45; Stop 06/12/17 at 10:16; Status DC Famotidine (Pepcid) 20 mg BID IVP Last administered on 06/08/17 11:18; Start 06/06/17 at 21:00; Stop 06/09/17 at 07:53; Status DC Morphine Sulfate 2 mg PRN Q2HR PRN IV PAIN Last administered on 06/10/17 22: 59; Start 06/06/17 at 15:45 Morphine Sulfate 4 mg PRN Q2HR PRN IV PAIN Last administered on 06/11/17 08: 31; Start 06/06/17 at 15:45 Ondansetron HCl (Zofran) 4 mg PRN Q6HRS PRN IV NAUSEA/VOMITING; Start 06/06/17 at 15:45; Stop 06/06/17 at 15:45; Status DC Fentanyl Citrate 30 ml @ 0 mls/hr CONT PRN IV PROTOCOL Last administered on 02:54; Start 06/06/17 at 17:30; Stop 06/07/17 at 10:39; Status DC Midazolam HCl 100 ml @ 0 mls/hr CONT PRN IV SEE I/O RECORD; Start 06/06/17 at 23:00; Stop 06/08/17 at 09:20; Status DC Sodium Chloride 1,000 ml @ 1,000 mls/hr 1X ONCE IV Last administered on 23:34; Start 06/06/17 at 23:00; Stop 06/06/17 at 23:59; Status DC Magnesium Sulfate/ Dextrose 50 ml @ 25 mls/hr 1X ONCE IV Last administered on 06/07/17 09:28; Start 06/07/17 at 08:15; Stop 06/07/17 at 10:14; Status DC Info 1 each PRN DAILY PRN MC SEE COMMENTS Last administered on 06/15/17 14:22 ; Start 06/07/17 at 09:30 Methylprednisolone Sodium Succinate (SOLU-Medrol 125MG VIAL) 50 mg DAILY IV Last administered on 06/12/17 08:47; Start 06/07/17 at 11:00; Stop 06/12/17 at 10:16; Status DC Hydromorphone HCl 30 ml @ 0 mls/hr CONT PRN PRN IV PROTOCOL Last administered on 06/07/17 11:16; Start 06/07/17 at 10:45; Stop 06/09/17 at 08:57; Status DC Sodium Chloride 90 meq/Potassium Chloride 50 meq/ Potassium Phosphate 13.6 mmol/ Magnesium Sulfate 10 meq/ Calcium Gluconate 10 meq/ Multivitamins 10 ml/Chromium / Copper/Manganese/ Seleni/Zn 1 ml/ Total Parenteral Nutrition/Amino Acids/ Dextrose/ Fat Emulsion Intravenous 1,512 ml @ 63 mls/hr TPN CONT IV Last administered on 06/07/17 22:04; Start 06/07/17 at 22:00; Stop 06/08/17 at 21 :59; Status DC Influenza Virus Vaccine Quadrival (Fluarix Quad [id number] Syringe) 0.5 ml ONCE ONCE VAX IM Last administered on 06/08/17 13:23; Start 06/07/17 at 16:15; Stop 06/07/17 at 16:35; Status DC Pneumococcal Polyvalent Vaccine (Do NOT chart on this placeholder) 1 each PRN 1X PRN MC SEE COMMENTS; Start 06/07/17 at 16:45; Status UNV Pneumococcal Polyvalent Vaccine (Pneumovax 23) 0.5 ml ONCE ONCE VAX IM Last administered on 06/08/17 13:25; Start 06/07/17 at 17:00; Stop 06/07/17 at 17 :01; Status DC Ceftriaxone Sodium 1 gm/ Sodium Chloride 50 ml @ 100 mls/hr Q24H IV Last administered on 06/12/17 08:45; Start 06/08/17 at 09:00; Stop 06/13/17 at 07 :45; Status DC Sodium Phosphate 20 mmol/Dextrose 256.6667 ml @ 64.167 m... 1X ONCE IV Last administered on 06/08/17 08:58; Start 06/08/17 at 09:00; Stop 06/08/17 at 12 :59; Status DC Multi-Ingred Cream/Lotion/Oil/ Oint (Artificial Tears Eye Oint) 1 juvenal PRN Q1HR PRN OU DRY EYE; Start 06/08/17 at 09:15 Sodium Chloride 90 meq/Potassium Chloride 40 meq/ Potassium Phosphate 17 mmol/ Magnesium Sulfate 10 meq/Calcium Gluconate 10 meq/ Multivitamins 10 ml/Chromium / Copper/Manganese/ Seleni/Zn 1 ml/ Total Parenteral Nutrition/Amino Acids/ Dextrose/ Fat Emulsion Intravenous 1,512 ml @ 63 mls/hr TPN CONT IV Last administered on 06/08/17 22:42; Start 06/08/17 at 22:00; Stop 06/09/17 at 21 :59; Status DC Diclofenac Sodium (Voltaren) 1 juvenal BID TP Last administered on 06/16/17 09:16 ; Start 06/08/17 at 21:00 Oxycodone/ Acetaminophen (Percocet 10/325) 1 tab PRN Q4HRS PRN PO pain Last administered on 06/15/17 08:48; Start 06/09/17 at 08:00; Stop 06/15/17 at 10 :39; Status DC Magnesium Sulfate/ Dextrose 50 ml @ 25 mls/hr 1X ONCE IV Last administered on 06/09/17 09:31; Start 06/09/17 at 08:00; Stop 06/09/17 at 09:59; Status DC Potassium Phosphate (K-Phos Original) 500 mg BID PO Last administered on 09:11; Start 06/09/17 at 09:00 Lidocaine (Lidoderm) 1 patch DAILY TD Last administered on 06/09/17 09:36; Start 06/09/17 at 09:00; Stop 06/10/17 at 20:50; Status DC Potassium Phosphate 13.6 mmol/Sodium Chloride 104.5333 ml @ 52.267 m... 1X ONCE IV Last administered on 06/09/17 13:51; Start 06/09/17 at 13:30; Stop 06/09/17 at 15:29; Status DC Sodium Chloride 40 meq/Sodium Acetate 50 meq/ Potassium Chloride 40 meq/ Potassium Phosphate 20 mmol/ Magnesium Sulfate 15 meq/Calcium Gluconate 10 meq/ Multivitamins 10 ml/Chromium/ Copper/Manganese/ Seleni/Zn 1 ml/ Total Parenteral Nutrition/Amino Acids/Dextrose/ Fat Emulsion Intravenous 1,512 ml @ 63 mls/hr TPN CONT IV Last administered on 06/09/17 22:11; Start 06/09/17 at 22:00; Stop 06/10/17 at 21:59; Status DC Potassium Chloride (Klor-Con) 40 meq 1X ONCE PO Last administered on 10:40; Start 06/10/17 at 09:30; Stop 06/10/17 at 09:31; Status DC Potassium Chloride (Klor-Con) 20 meq [id number] PO Last administered on 09:11; Start 06/11/17 at 08:00 Magnesium Sulfate/ Dextrose 50 ml @ 25 mls/hr 1X ONCE IV Last administered on 06/10/17 10:38; Start 06/10/17 at 10:00; Stop 06/10/17 at 11:59; Status DC Sodium Chloride 40 meq/Sodium Acetate 50 meq/ Potassium Acetate 60 meq/ Potassium Phosphate 18 mmol/ Magnesium Sulfate 18 meq/Calcium Gluconate 10 meq/ Multivitamins 10 ml/Chromium/ Copper/Manganese/ Seleni/Zn 1 ml/ Total Parenteral Nutrition/Amino Acids/Dextrose/ Fat Emulsion Intravenous 1,512 ml @ 63 mls/hr TPN CONT IV Last administered on 06/10/17 21:43; Start 06/10/17 at 22:00; Stop 06/11/17 at 22:00; Status DC Lidocaine (Lidoderm) 1 patch QHS TD Last administered on 06/10/17 21:37; Start 06/10/17 at 21:00; Stop 06/12/17 at 05:01; Status DC Magnesium Sulfate/ Dextrose 100 ml @ 25 mls/hr 1X ONCE IV Last administered on 06/11/17 11:22; Start 06/11/17 at 09:00; Stop 06/11/17 at 12:59; Status DC Lisinopril (Prinivil) 10 mg DAILY PO Last administered on 06/13/17 08:34; Start 06/11/17 at 13:00; Stop 06/13/17 at 09:19; Status DC Metoprolol Succinate (Toprol Xl) 100 mg DAILY PO Last administered on 09:14; Start 06/11/17 at 13:00 Hydrochlorothiazide (Hydrodiuril) 25 mg DAILY PO Last administered on 09:14; Start 06/11/17 at 13:00 Sodium Chloride 40 meq/Sodium Acetate 50 meq/ Potassium Acetate 60 meq/ Potassium Phosphate 18 mmol/ Magnesium Sulfate 18 meq/Calcium Gluconate 10 meq/ Multivitamins 10 ml/Chromium/ Copper/Manganese/ Seleni/Zn 1 ml/ Total Parenteral Nutrition/Amino Acids/Dextrose/ Fat Emulsion Intravenous 1,512 ml @ 63 mls/hr TPN CONT IV Last administered on 06/11/17 21:43; Start 06/11/17 at 22:00; Stop 06/12/17 at 21:59; Status DC Lidocaine (Lidoderm) 1 patch DAILY TD Last administered on 06/13/17 08:35; Start 06/12/17 at 09:00 Hydralazine HCl (Apresoline Inj) 10 mg PRN Q4HRS PRN IVP ELEVATED BP, SEE COMMENTS; Start 06/12/17 at 09:00 Magnesium Sulfate/ Dextrose 100 ml @ 25 mls/hr 1X ONCE IV Last administered on 06/12/17 09:53; Start 06/12/17 at 09:30; Stop 06/12/17 at 13:29; Status DC Magnesium Oxide (Magnesium Oxide) 400 mg DAILY PO Last administered on 09:15; Start 06/12/17 at 09:30 Lorazepam (Ativan) 1 mg PRN Q4HRS PRN IV ANXIETY / AGITATION; Start 06/12/17 at 10:15 Alprazolam (Xanax) 0.5 mg PRN Q8HRS PRN PO ANXIETY / AGITATION; Start at 10:15 Prednisone (Prednisone) 20 mg DAILY PO Last administered on 06/13/17 08:34; Start 06/13/17 at 09:00; Stop 06/13/17 at 15:06; Status DC Sodium Chloride 60 meq/Sodium Acetate 50 meq/ Potassium Acetate 60 meq/ Potassium Phosphate 18 mmol/ Magnesium Sulfate 27 meq/Calcium Gluconate 10 meq/ Multivitamins 10 ml/Chromium/ Copper/Manganese/ Seleni/Zn 1 ml/ Total Parenteral Nutrition/Amino Acids/Dextrose/ Fat Emulsion Intravenous 1,512 ml @ 63 mls/hr TPN CONT IV Last administered on 06/12/17 21:33; Start 06/12/17 at 22:00; Stop 06/13/17 at 21:59; Status DC Metronidazole (Flagyl) 500 mg Q12HR PO Last administered on 06/15/17 21:48; Start 06/13/17 at 09:00; Stop 06/16/17 at 09:05; Status DC Cefpodoxime Proxetil (Vantin) 200 mg BID PO Last administered on 06/15/17 21: 49; Start 06/13/17 at 09:00; Stop 06/16/17 at 09:05; Status DC Lisinopril (Prinivil) 20 mg DAILY PO Last administered on 06/16/17 09:15; Start 06/14/17 at 09:00 Lisinopril (Prinivil) 10 mg 1X ONCE PO ; Start 06/13/17 at 09:30; Stop at 09:31; Status DC Docusate Sodium (Colace) 100 mg BID PO Last administered on 06/16/17 09:12; Start 06/13/17 at 11:30 Sodium Chloride 60 meq/Sodium Acetate 50 meq/ Potassium Acetate 60 meq/ Potassium Phosphate 18 mmol/ Magnesium Sulfate 27 meq/Calcium Gluconate 10 meq/ Multivitamins 10 ml/Chromium/ Copper/Manganese/ Seleni/Zn 1 ml/ Total Parenteral Nutrition/Amino Acids/Dextrose/ Fat Emulsion Intravenous 1,512 ml @ 63 mls/hr TPN CONT IV Last administered on 06/13/17 22:31; Start 06/13/17 at 22:00; Stop 06/14/17 at 21:59; Status DC Lisinopril (Prinivil) 10 mg 1X ONCE PO Last administered on 06/13/17 16:18; Start 06/13/17 at 14:45; Stop 06/13/17 at 14:46; Status DC Polyethylene Glycol (miraLAX PACKET) 17 gm DAILY PO ; Start 06/14/17 at 09:30; Stop 06/14/17 at 11:47; Status DC Magnesium Hydroxide (Milk Of Magnesia) 2,400 mg PRN DAILY PRN PO CONSTIPATION; Start 06/14/17 at 09:30; Stop 06/14/17 at 11:47; Status DC Magnesium Hydroxide (Milk Of Magnesia) 2,400 mg 1X ONCE PO ; Start 06/14/17 at 09:30; Stop 06/14/17 at 09:31; Status Cancel Magnesium Sulfate/ Dextrose 100 ml @ 25 mls/hr 1X ONCE IV Last administered on 06/14/17 12:03; Start 06/14/17 at 10:00; Stop 06/14/17 at 13:59; Status DC Sodium Chloride 80 meq/Sodium Acetate 50 meq/ Potassium Acetate 60 meq/ Potassium Phosphate 18 mmol/ Magnesium Sulfate 27 meq/Calcium Gluconate 10 meq/ Multivitamins 10 ml/Chromium/ Copper/Manganese/ Seleni/Zn 1 ml/ Total Parenteral Nutrition/Amino Acids/Dextrose/ Fat Emulsion Intravenous 1,512 ml @ 63 mls/hr TPN CONT IV Last administered on 06/14/17 22:34; Start 06/14/17 at 22:00; Stop 06/15/17 at 21:59; Status DC Hydromorphone HCl (Dilaudid) 1 mg 1X ONCE IV Last administered on 06/14/17 15:47; Start 06/14/17 at 13:15; Stop 06/14/17 at 13:16; Status DC Iohexol (Omnipaque 300 Mg/ml) 75 ml 1X ONCE IV Last administered on 13:56; Start 06/14/17 at 13:30; Stop 06/14/17 at 13:31; Status DC Info (Do NOT chart on this entry -- for MONITORING) 1 each PRN DAILY PRN MC SEE COMMENTS; Start 06/14/17 at 13:15; Stop 06/16/17 at 13:14 Oxycodone/ Acetaminophen (Percocet 10/325) 1 tab Q4HRS PO Last administered on 06/16/17 12:16; Start 06/15/17 at 12:00 Sodium Chloride 80 meq/Sodium Acetate 50 meq/ Potassium Acetate 60 meq/ Potassium Phosphate 18 mmol/ Magnesium Sulfate 27 meq/Calcium Gluconate 10 meq/ Multivitamins 10 ml/Chromium/ Copper/Manganese/ Seleni/Zn 1 ml/ Total Parenteral Nutrition/Amino Acids/Dextrose/ Fat Emulsion Intravenous 1,512 ml @ 63 mls/hr TPN CONT IV Last administered on 06/15/17 22:14; Start 06/15/17 at 22:00; Stop 06/16/17 at 21:59 Meropenem 1 gm/ Sodium Chloride 100 ml @ 200 mls/hr Q8HRS IV ; Start 06/16/17 at 14:00 Vancomycin HCl (Vanco Per Pharmacy) 1 each PRN DAILY PRN MC SEE COMMENTS Last administered on 10/19/17at 12:37; Start 06/16/17 at 09:00 Fluconazole/ Sodium Chloride 200 ml @ 100 mls/hr Q24H IV Last administered on 06/16/17 11:56; Start 06/16/17 at 10:00 Vancomycin HCl 2 gm/Dextrose 500 ml @ 250 mls/hr 1X ONCE IV Last administered on 06/16/17 11:57; Start 06/16/17 at 11:00; Stop 06/16/17 at 12 :59; Status DC Magnesium Sulfate/ Dextrose 50 ml @ 25 mls/hr 1X ONCE IV Last administered on 06/16/17t 11:56; Start 06/16/17 at 10:30; Stop 06/16/17 at 12:30; Status DC Vancomycin HCl 1.25 gm/Dextrose 250 ml @ 167 mls/hr Q12H IV ; Start 06/17/17 at 00:00 Vancomycin HCl 1 each 1X ONCE MC ; Start 06/18/17 at 23:30; Stop 06/18/17 at 23:31 Sodium Chloride 80 meq/Sodium Acetate 50 meq/ Potassium Acetate 60 meq/ Potassium Phosphate 18 mmol/ Magnesium Sulfate 30 meq/Calcium Gluconate 10 meq/ Multivitamins 10 ml/Chromium/ Copper/Manganese/ Seleni/Zn 1 ml/ Total Parenteral Nutrition/Amino Acids/Dextrose/ Fat Emulsion Intravenous 1,512 ml @ 63 mls/hr TPN CONT IV ; Start 06/16/17 at 22:00; Stop 06/17/17 at 21:59 Active Scripts Active Reported [prednisone taper] Metoprolol Succinate ( Xl ) (Metoprolol Succinate) 100 Mg Tab.er.24h 1 Tab PO DAILY Lisinopril 10 Mg Tablet 1 Tab PO DAILY Hydrochlorothiazide Tablet (Hydrochlorothiazide) 50 Mg Tablet 25 Tab PO DAILY Vitals/I & O Vital Sign - Last 24 Hours 06/15/17 06/15/17 06/15/17 06/15/17 15:00 19:00 19:30 20:37 Temp 98.6 98.7 98.6 98.7 Pulse 64 71 Resp 18 18 B/P (MAP) 120/56 (77) 110/68 (82) Pulse Ox 92 94 94 O2 Delivery Room Air Room Air Room Air Room Air 06/15/17 06/15/17 06/16/17 06/16/17 23:00 23:58 03:00 04:17 Temp 98.6 99.1 98.6 99.1 Pulse 63 71 Resp 18 17 18 17 B/P (MAP) 116/54 (74) 113/70 (84) Pulse Ox 93 94 95 94 O2 Delivery Room Air Room Air Room Air Room Air 06/16/17 06/16/17 06/16/17 06/16/17 05:20 07:00 09:14 09:15 Temp 99.7 99.7 Pulse 72 71 71 Resp 16 18 B/P (MAP) 160/71 (100) 113/70 113/70 Pulse Ox 98 O2 Delivery Room Air 06/16/17 06/16/17 06/16/17 11:00 12:16 12:20 Temp 98.8 98.8 Pulse 69 Resp 18 B/P (MAP) 107/61 (76) Pulse Ox 96 96 96 O2 Delivery Room Air Room Air Room Air O2 Flow Rate 2.0 2.0 KRISTIN PEÑA MD Jun 16, 2017 13:05
[2017-06-16 15:00] VITALS: BP 167/85
[2017-06-16] MEDS: MEROPENEM 1 GM in IV NORMAL SALINE 100ML 100 ML IV SCH ×2 (15:04→22:06)
--- NOTE | 2017-06-16 17:58 | PDOC ---
SURGICAL PROGRESS NOTE Subjective LATE ENTRY Pt seen this AM, spoke with his by phone over the noon hour he was unhappy about delivery of his q4hr scheduled pain meds denies nausea, taking po Vital Signs Vital Signs Date Time Temp Pulse Resp B/P (MAP) Pulse Ox O2 Delivery O2 Flow Rate FiO2 06/16/17 16:20 95 Room Air 2.0 06/16/17 15:00 99.0 69 18 167/85 (112) 99.0 PATIENT HAS A MUELLER: No General: Alert, Other (upset ) Abdomen: Soft, Other (mildly distenede, stoma viable) Labs Laboratory Tests Test 06/14/17 21:20 06/15/17 06:20 06/15/17 08:08 06/15/17 11:14 Glucose (Fingerstick) 133 mg/dL (70-99) 114 mg/dL (70-99) 169 mg/dL (70-99) Sodium Level 136 mmol/L (136-145) Potassium Level 4.0 mmol/L (3.5-5.1) Chloride Level 102 mmol/L (98-107) Carbon Dioxide Level 30 mmol/L (21-32) Anion Gap 4 (6-14) Blood Urea Nitrogen 23 mg/dL (8-26) Creatinine 1.1 mg/dL (0.7-1.3) Estimated GFR (Cockcroft-Gault) 67.0 Glucose Level 112 mg/dL (70-99) Calcium Level 8.1 mg/dL (8.5-10.1) Phosphorus Level 3.9 mg/dL (2.6-4.7) Magnesium Level 1.9 mg/dL (1.8-2.4) Test 06/15/17 16:23 06/15/17 20:52 06/16/17 04:30 06/16/17 08:07 Glucose (Fingerstick) 120 mg/dL (70-99) 129 mg/dL (70-99) 118 mg/dL (70-99) White Blood Count 13.4 x10^3/uL (4.0-11.0) Red Blood Count 3.18 x10^6/uL (4.30-5.70) Hemoglobin 9.2 g/dL (13.0-17.5) Hematocrit 27.1 % (39.0-53.0) Mean Corpuscular Volume 85 fL (79-100) Mean Corpuscular Hemoglobin 29 pg (25-35) Mean Corpuscular Hemoglobin Concent 34 g/dL (31-37) Red Cell Distribution Width 14.0 % (11.5-14.5) Platelet Count 528 x10^3/uL (140-400) Neutrophils (%) (Auto) 81 % (31-73) Lymphocytes (%) (Auto) 7 % (24-48) Monocytes (%) (Auto) 10 % (0-9) Eosinophils (%) (Auto) 2 % (0-3) Basophils (%) (Auto) 1 % (0-3) Neutrophils # (Auto) 10.8 x10^3uL (1.8-7.7) Lymphocytes # (Auto) 0.9 x10^3/uL (1.0-4.8) Monocytes # (Auto) 1.3 x10^3/uL (0.0-1.1) Eosinophils # (Auto) 0.3 x10^3/uL (0.0-0.7) Basophils # (Auto) 0.1 x10^3/uL (0.0-0.2) Sodium Level 135 mmol/L (136-145) Potassium Level 3.8 mmol/L (3.5-5.1) Chloride Level 100 mmol/L (98-107) Carbon Dioxide Level 29 mmol/L (21-32) Anion Gap 6 (6-14) Blood Urea Nitrogen 22 mg/dL (8-26) Creatinine 1.0 mg/dL (0.7-1.3) Estimated GFR (Cockcroft-Gault) 74.8 Glucose Level 137 mg/dL (70-99) Calcium Level 8.3 mg/dL (8.5-10.1) Phosphorus Level 3.1 mg/dL (2.6-4.7) Magnesium Level 1.7 mg/dL (1.8-2.4) Test 06/16/17 10:18 06/16/17 11:12 06/16/17 16:57 Urine Collection Type Unknown Urine Color Yellow Urine Clarity Cloudy Urine pH 7.5 Urine Specific [place] 1.010 Urine Protein Negative mg/dL (NEG-TRACE) Urine Glucose (UA) Negative mg/dL (NEG) Urine Ketones (Stick) Negative mg/dL (NEG) Urine Blood Negative (NEG) Urine Nitrite Negative (NEG) Urine Bilirubin Negative (NEG) Urine Urobilinogen Dipstick 1.0 mg/dL (0.2 mg/dL) Urine Leukocyte Esterase Negative (NEG) Urine RBC 0 /HPF (0-2) Urine WBC 0 /HPF (0-4) Urine Amorphous Sediment Present /HPF Urine Bacteria Few /HPF (0-FEW) Urine Mucus Slight /LPF Glucose (Fingerstick) 129 mg/dL (70-99) 143 mg/dL (70-99) Laboratory Tests Test 06/15/17 20:52 06/16/17 04:30 06/16/17 08:07 06/16/17 10:18 Glucose (Fingerstick) 129 mg/dL (70-99) 118 mg/dL (70-99) White Blood Count 13.4 x10^3/uL (4.0-11.0) Red Blood Count 3.18 x10^6/uL (4.30-5.70) Hemoglobin 9.2 g/dL (13.0-17.5) Hematocrit 27.1 % (39.0-53.0) Mean Corpuscular Volume 85 fL (79-100) Mean Corpuscular Hemoglobin 29 pg (25-35) Mean Corpuscular Hemoglobin Concent 34 g/dL (31-37) Red Cell Distribution Width 14.0 % (11.5-14.5) Platelet Count 528 x10^3/uL (140-400) Neutrophils (%) (Auto) 81 % (31-73) Lymphocytes (%) (Auto) 7 % (24-48) Monocytes (%) (Auto) 10 % (0-9) Eosinophils (%) (Auto) 2 % (0-3) Basophils (%) (Auto) 1 % (0-3) Neutrophils # (Auto) 10.8 x10^3uL (1.8-7.7) Lymphocytes # (Auto) 0.9 x10^3/uL (1.0-4.8) Monocytes # (Auto) 1.3 x10^3/uL (0.0-1.1) Eosinophils # (Auto) 0.3 x10^3/uL (0.0-0.7) Basophils # (Auto) 0.1 x10^3/uL (0.0-0.2) Sodium Level 135 mmol/L (136-145) Potassium Level 3.8 mmol/L (3.5-5.1) Chloride Level 100 mmol/L (98-107) Carbon Dioxide Level 29 mmol/L (21-32) Anion Gap 6 (6-14) Blood Urea Nitrogen 22 mg/dL (8-26) Creatinine 1.0 mg/dL (0.7-1.3) Estimated GFR (Cockcroft-Gault) 74.8 Glucose Level 137 mg/dL (70-99) Calcium Level 8.3 mg/dL (8.5-10.1) Phosphorus Level 3.1 mg/dL (2.6-4.7) Magnesium Level 1.7 mg/dL (1.8-2.4) Urine Collection Type Unknown Urine Color Yellow Urine Clarity Cloudy Urine pH 7.5 Urine Specific [place] 1.010 Urine Protein Negative mg/dL (NEG-TRACE) Urine Glucose (UA) Negative mg/dL (NEG) Urine Ketones (Stick) Negative mg/dL (NEG) Urine Blood Negative (NEG) Urine Nitrite Negative (NEG) Urine Bilirubin Negative (NEG) Urine Urobilinogen Dipstick 1.0 mg/dL (0.2 mg/dL) Urine Leukocyte Esterase Negative (NEG) Urine RBC 0 /HPF (0-2) Urine WBC 0 /HPF (0-4) Urine Amorphous Sediment Present /HPF Urine Bacteria Few /HPF (0-FEW) Urine Mucus Slight /LPF Test 06/16/17 11:12 06/16/17 16:57 Glucose (Fingerstick) 129 mg/dL (70-99) 143 mg/dL (70-99) Problem List Problems Medical Problems: (1) Abdominal pain Status: Acute (2) Elevated brain natriuretic peptide (BNP) level Status: Acute (3) Hypomagnesemia Status: Acute (4) Perforated abdominal viscus Status: Acute Assessment/Plan s/p sigmoid resection with end colostomy slow return of bowel function taper TPN continue ambulation try to use as little narcotic as necessary Problems: MARY MARTINEZ MD Jun 16, 2017 17:58
[2017-06-16 19:15] VITALS: BP 137/70
[2017-06-16] MEDS: LACTOBACILLUS ACIDOPH & BULGAR 1 TABLET. PO SCH (20:47)
[2017-06-16] MEDS ORDERED: [UNRECOGNIZED DRUG - OTHER] IV SCH ×11 (22:00)
[2017-06-16] MEDS ORDERED: TOTAL PARENTERAL NUTRITION IV SCH ×11 (22:00)
[2017-06-16] MEDS ORDERED: AMINO ACIDS IV SCH ×11 (22:00)
[2017-06-16] MEDS ORDERED: DEXTROSE 70% IV SCH ×11 (22:00)
[2017-06-16 23:00] VITALS: BP 118/63
[2017-06-17] MEDS: oxyCODONE/APAP 10/325 1 TAB TABLET PO SCH ×6 (00:05→20:01)
[2017-06-17] MEDS: VANCOMYCIN 1.25 GM in IV DEXTROSE 5% 250 ML IV SCH ×2 (00:17→12:57)
[2017-06-17 03:00] VITALS: BP 126/58
[2017-06-17] MEDS: MEROPENEM 1 GM in IV NORMAL SALINE 100ML 100 ML IV SCH ×3 (05:58→22:00)
[2017-06-17 07:00] VITALS: BP 164/94
[2017-06-17 07:36] LABS: BASO # 0.1 x10^3/uL (0.0-0.2); BASO % 1 % (0-3); EOS % 4 % (0-3); HEMATOCRIT 22.4 % (39.0-53.0); HEMOGLOBIN 7.5 g/dL (13.0-17.5); LYMPH % 8 % (24-48); MEAN CORPUSCULAR HEMOGLOBIN 29 pg (25-35); MEAN CORPUSCULAR HGB CONC 33 g/dL (31-37); MEAN CORPUSCULAR VOLUME 87 fL (79-100); MONO % 9 % (0-9); NEUT % 79 % (31-73); PLATELET COUNT 554 x10^3/uL (140-400); RED BLOOD COUNT 2.58 x10^6/uL (4.30-5.70); RED CELL DISTRIBUTION WIDTH 13.9 % (11.5-14.5); WHITE BLOOD COUNT 13.6 x10^3/uL (4.0-11.0)
[2017-06-17] MEDS: MAGNESIUM OXIDE 400 MG TABLET PO SCH (07:58)
[2017-06-17] MEDS: LACTOBACILLUS ACIDOPH & BULGAR 1 TABLET. PO SCH ×2 (07:58→21:01)
[2017-06-17] MEDS: hydroCHLOROthiazide 25 MG TABLET PO SCH (07:59)
[2017-06-17] MEDS: DOCUSATE SODIUM 100 MG CAPSULE. PO SCH ×2 (07:59→21:02)
[2017-06-17] MEDS: LISINOPRIL 20 MG TABLET PO SCH (07:59)
[2017-06-17] MEDS: POTASSIUM PHOSPHATE,MONOBASIC 500 MG TABLET. PO SCH ×2 (07:59→21:02)
[2017-06-17] MEDS: METOPROLOL SUCC 24HR ER 100 MG TAB.ER.24H. PO SCH (08:00)
[2017-06-17] MEDS: POTASSIUM CHLORIDE 20 MEQ TABLET.ER. PO SCH (08:00)
[2017-06-17] MEDS: LIDOCAINE (700MG/PATCH) PATCH. TD SCH (08:01)
[2017-06-17] MEDS: DICLOFENAC SODIUM 1% TOPICAL GEL 100GM TUBE. TP SCH ×2 (08:01→21:00)
[2017-06-17 08:04] LABS: CALCIUM 8.2 mg/dL (8.5-10.1); GFR 74.8; POTASSIUM 3.8 mmol/L (3.5-5.1)
--- NOTE | 2017-06-17 08:51 | PDOC ---
MINA LYNCH SUPPLY COORDINATOR 06/17/17 0851: SURGICAL PROGRESS NOTE Subjective Tolerating diet pain managed better Vital Signs Vital Signs Date Time Temp Pulse Resp B/P (MAP) Pulse Ox O2 Delivery O2 Flow Rate FiO2 06/17/17 08:00 Room Air 06/17/17 08:00 74 126/58 06/17/17 07:00 98.1 18 95 98.1 06/16/17 18:08 2.0 General: Alert, Oriented X3, Cooperative, No acute distress Abdomen: Soft, Other (stoma pink, no stool, incision without drainage, mild erythema mid incision) Labs Laboratory Tests Test 06/15/17 11:14 06/15/17 16:23 06/15/17 20:52 06/16/17 04:30 Glucose (Fingerstick) 169 mg/dL (70-99) 120 mg/dL (70-99) 129 mg/dL (70-99) White Blood Count 13.4 x10^3/uL (4.0-11.0) Red Blood Count 3.18 x10^6/uL (4.30-5.70) Hemoglobin 9.2 g/dL (13.0-17.5) Hematocrit 27.1 % (39.0-53.0) Mean Corpuscular Volume 85 fL (79-100) Mean Corpuscular Hemoglobin 29 pg (25-35) Mean Corpuscular Hemoglobin Concent 34 g/dL (31-37) Red Cell Distribution Width 14.0 % (11.5-14.5) Platelet Count 528 x10^3/uL (140-400) Neutrophils (%) (Auto) 81 % (31-73) Lymphocytes (%) (Auto) 7 % (24-48) Monocytes (%) (Auto) 10 % (0-9) Eosinophils (%) (Auto) 2 % (0-3) Basophils (%) (Auto) 1 % (0-3) Neutrophils # (Auto) 10.8 x10^3uL (1.8-7.7) Lymphocytes # (Auto) 0.9 x10^3/uL (1.0-4.8) Monocytes # (Auto) 1.3 x10^3/uL (0.0-1.1) Eosinophils # (Auto) 0.3 x10^3/uL (0.0-0.7) Basophils # (Auto) 0.1 x10^3/uL (0.0-0.2) Sodium Level 135 mmol/L (136-145) Potassium Level 3.8 mmol/L (3.5-5.1) Chloride Level 100 mmol/L (98-107) Carbon Dioxide Level 29 mmol/L (21-32) Anion Gap 6 (6-14) Blood Urea Nitrogen 22 mg/dL (8-26) Creatinine 1.0 mg/dL (0.7-1.3) Estimated GFR (Cockcroft-Gault) 74.8 Glucose Level 137 mg/dL (70-99) Calcium Level 8.3 mg/dL (8.5-10.1) Phosphorus Level 3.1 mg/dL (2.6-4.7) Magnesium Level 1.7 mg/dL (1.8-2.4) Test 06/16/17 08:07 06/16/17 10:18 06/16/17 11:12 06/16/17 16:57 Glucose (Fingerstick) 118 mg/dL (70-99) 129 mg/dL (70-99) 143 mg/dL (70-99) Urine Collection Type Unknown Urine Color Yellow Urine Clarity Cloudy Urine pH 7.5 Urine Specific [place] 1.010 Urine Protein Negative mg/dL (NEG-TRACE) Urine Glucose (UA) Negative mg/dL (NEG) Urine Ketones (Stick) Negative mg/dL (NEG) Urine Blood Negative (NEG) Urine Nitrite Negative (NEG) Urine Bilirubin Negative (NEG) Urine Urobilinogen Dipstick 1.0 mg/dL (0.2 mg/dL) Urine Leukocyte Esterase Negative (NEG) Urine RBC 0 /HPF (0-2) Urine WBC 0 /HPF (0-4) Urine Amorphous Sediment Present /HPF Urine Bacteria Few /HPF (0-FEW) Urine Mucus Slight /LPF Test 06/16/17 20:31 06/17/17 07:00 06/17/17 07:57 Glucose (Fingerstick) 119 mg/dL (70-99) 127 mg/dL (70-99) White Blood Count 13.6 x10^3/uL (4.0-11.0) Red Blood Count 2.58 x10^6/uL (4.30-5.70) Hemoglobin 7.5 g/dL (13.0-17.5) Hematocrit 22.4 % (39.0-53.0) Mean Corpuscular Volume 87 fL (79-100) Mean Corpuscular Hemoglobin 29 pg (25-35) Mean Corpuscular Hemoglobin Concent 33 g/dL (31-37) Red Cell Distribution Width 13.9 % (11.5-14.5) Platelet Count 554 x10^3/uL (140-400) Neutrophils (%) (Auto) 79 % (31-73) Lymphocytes (%) (Auto) 8 % (24-48) Monocytes (%) (Auto) 9 % (0-9) Eosinophils (%) (Auto) 4 % (0-3) Basophils (%) (Auto) 1 % (0-3) Neutrophils # (Auto) 10.7 x10^3uL (1.8-7.7) Lymphocytes # (Auto) 1.0 x10^3/uL (1.0-4.8) Monocytes # (Auto) 1.3 x10^3/uL (0.0-1.1) Eosinophils # (Auto) 0.5 x10^3/uL (0.0-0.7) Basophils # (Auto) 0.1 x10^3/uL (0.0-0.2) Sodium Level 134 mmol/L (136-145) Potassium Level 3.8 mmol/L (3.5-5.1) Chloride Level 100 mmol/L (98-107) Carbon Dioxide Level 29 mmol/L (21-32) Anion Gap 5 (6-14) Blood Urea Nitrogen 18 mg/dL (8-26) Creatinine 1.0 mg/dL (0.7-1.3) Estimated GFR (Cockcroft-Gault) 74.8 Glucose Level 101 mg/dL (70-99) Calcium Level 8.2 mg/dL (8.5-10.1) Magnesium Level 1.7 mg/dL (1.8-2.4) Laboratory Tests Test 06/16/17 10:18 06/16/17 11:12 06/16/17 16:57 06/16/17 20:31 Urine Collection Type Unknown Urine Color Yellow Urine Clarity Cloudy Urine pH 7.5 Urine Specific [place] 1.010 Urine Protein Negative mg/dL (NEG-TRACE) Urine Glucose (UA) Negative mg/dL (NEG) Urine Ketones (Stick) Negative mg/dL (NEG) Urine Blood Negative (NEG) Urine Nitrite Negative (NEG) Urine Bilirubin Negative (NEG) Urine Urobilinogen Dipstick 1.0 mg/dL (0.2 mg/dL) Urine Leukocyte Esterase Negative (NEG) Urine RBC 0 /HPF (0-2) Urine WBC 0 /HPF (0-4) Urine Amorphous Sediment Present /HPF Urine Bacteria Few /HPF (0-FEW) Urine Mucus Slight /LPF Glucose (Fingerstick) 129 mg/dL (70-99) 143 mg/dL (70-99) 119 mg/dL (70-99) Test 06/17/17 07:00 06/17/17 07:57 White Blood Count 13.6 x10^3/uL (4.0-11.0) Red Blood Count 2.58 x10^6/uL (4.30-5.70) Hemoglobin 7.5 g/dL (13.0-17.5) Hematocrit 22.4 % (39.0-53.0) Mean Corpuscular Volume 87 fL (79-100) Mean Corpuscular Hemoglobin 29 pg (25-35) Mean Corpuscular Hemoglobin Concent 33 g/dL (31-37) Red Cell Distribution Width 13.9 % (11.5-14.5) Platelet Count 554 x10^3/uL (140-400) Neutrophils (%) (Auto) 79 % (31-73) Lymphocytes (%) (Auto) 8 % (24-48) Monocytes (%) (Auto) 9 % (0-9) Eosinophils (%) (Auto) 4 % (0-3) Basophils (%) (Auto) 1 % (0-3) Neutrophils # (Auto) 10.7 x10^3uL (1.8-7.7) Lymphocytes # (Auto) 1.0 x10^3/uL (1.0-4.8) Monocytes # (Auto) 1.3 x10^3/uL (0.0-1.1) Eosinophils # (Auto) 0.5 x10^3/uL (0.0-0.7) Basophils # (Auto) 0.1 x10^3/uL (0.0-0.2) Sodium Level 134 mmol/L (136-145) Potassium Level 3.8 mmol/L (3.5-5.1) Chloride Level 100 mmol/L (98-107) Carbon Dioxide Level 29 mmol/L (21-32) Anion Gap 5 (6-14) Blood Urea Nitrogen 18 mg/dL (8-26) Creatinine 1.0 mg/dL (0.7-1.3) Estimated GFR (Cockcroft-Gault) 74.8 Glucose Level 101 mg/dL (70-99) Calcium Level 8.2 mg/dL (8.5-10.1) Magnesium Level 1.7 mg/dL (1.8-2.4) Glucose (Fingerstick) 127 mg/dL (70-99) Problem List Problems Medical Problems: (1) Abdominal pain Status: Acute (2) Elevated brain natriuretic peptide (BNP) level Status: Acute (3) Hypomagnesemia Status: Acute (4) Perforated abdominal viscus Status: Acute Assessment/Plan supportive care await bowel function Problems: MARY MARTINEZ MD 06/17/17 1057: SURGICAL PROGRESS NOTE Assessment/Plan pt seen and examined as above in better spirits today Dr Parekh to follow over the weekend Problems: MINA LYNCH APRN Jun 17, 2017 08:51 MARY MARTINEZ MD Jun 17, 2017 10:57
[2017-06-17] MEDS: FLUCONAZOLE 400MG/200ML PREMIX 200 ML IV SCH (10:00)
[2017-06-17] MEDS ORDERED: MAGNESIUM SULFATE 2GM 50 ML IV ONE (10:00)
[2017-06-17 11:00] VITALS: BP 122/79
--- NOTE | 2017-06-17 11:46 | PDOC ---
Infectious Disease Note Subjective Subjective Tolerating po Remains on TPN Pain controlled ROS ROS GEN: Denies fevers, chills, sweats CV: Denies chest pain RESP: Denies shortness of air, cough GI: Denies n/v Vital Sign Vital Signs Vital Signs Date Time Temp Pulse Resp B/P (MAP) Pulse Ox O2 Delivery O2 Flow Rate FiO2 06/17/17 08:00 Room Air 06/17/17 08:00 74 126/58 06/17/17 07:00 98.1 18 95 98.1 06/16/17 18:08 2.0 Physical Exam PHYSICAL EXAM GENERAL: Propped up in bed, talking on phone LUNGS: Clear HEART: S1S2, no gallop, no murmur ABD: Soft, NT to light palpation, Drain, midline incision approx, mildly erythematous, no drainage noted, ostomy EXT: No edema, no cyanosis COSMETOLOGIST: Alert, oriented x 3, no focal neurologic deficit SKIN: No rash LUE-PICC. clean Labs Lab Laboratory Tests Test 06/16/17 16:57 06/16/17 20:31 06/17/17 07:00 06/17/17 07:57 Glucose (Fingerstick) 143 mg/dL (70-99) 119 mg/dL (70-99) 127 mg/dL (70-99) White Blood Count 13.6 x10^3/uL (4.0-11.0) Red Blood Count 2.58 x10^6/uL (4.30-5.70) Hemoglobin 7.5 g/dL (13.0-17.5) Hematocrit 22.4 % (39.0-53.0) Mean Corpuscular Volume 87 fL (79-100) Mean Corpuscular Hemoglobin 29 pg (25-35) Mean Corpuscular Hemoglobin Concent 33 g/dL (31-37) Red Cell Distribution Width 13.9 % (11.5-14.5) Platelet Count 554 x10^3/uL (140-400) Neutrophils (%) (Auto) 79 % (31-73) Lymphocytes (%) (Auto) 8 % (24-48) Monocytes (%) (Auto) 9 % (0-9) Eosinophils (%) (Auto) 4 % (0-3) Basophils (%) (Auto) 1 % (0-3) Neutrophils # (Auto) 10.7 x10^3uL (1.8-7.7) Lymphocytes # (Auto) 1.0 x10^3/uL (1.0-4.8) Monocytes # (Auto) 1.3 x10^3/uL (0.0-1.1) Eosinophils # (Auto) 0.5 x10^3/uL (0.0-0.7) Basophils # (Auto) 0.1 x10^3/uL (0.0-0.2) Sodium Level 134 mmol/L (136-145) Potassium Level 3.8 mmol/L (3.5-5.1) Chloride Level 100 mmol/L (98-107) Carbon Dioxide Level 29 mmol/L (21-32) Anion Gap 5 (6-14) Blood Urea Nitrogen 18 mg/dL (8-26) Creatinine 1.0 mg/dL (0.7-1.3) Estimated GFR (Cockcroft-Gault) 74.8 Glucose Level 101 mg/dL (70-99) Calcium Level 8.2 mg/dL (8.5-10.1) Magnesium Level 1.7 mg/dL (1.8-2.4) Test 06/17/17 11:31 CXRGlucose (Fingerstick) 135 mg/dL (70-99) CXR Impression: 1. Interval extubation 2. Interval development of mild nonspecific basilar opacities which could represent atelectasis, infiltrate, or trace effusion Micro BLOOD CULTURE Preliminary NO GROWTH AFTER 1 DAY Objective Assessment Perforated viscus with fecal peritonitis, E. 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 Abdominal pain, better Respiratory failure - some RLL consolidation Chronic back pain HTN Leukocytosis, ? steroids- off now Low-grade fever - better Anemia Plan Plan of Care Vanc, Meropenem & Fluconazole monitor ostomy output and incision F/u labs/cultures D/w Dr. Viera Attending Co-Sign The patient was seen and interviewed as well as examined at the bedside. The chart was reviewed. The case was discussed. Agree with the plan of care. d/c vanc d/w in detail JUICE MADRIGAL APRN Jun 17, 2017 11:46 JYOTI JIANG MD Jun 17, 2017 14:23
[2017-06-17] MEDS: TPN PER PHARMACY MC PRN (11:49)
--- NOTE | 2017-06-17 12:13 | PDOC ---
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 Mag likely depressed gi, dvt ppx on HTN meds PTOT check anemia panel repeated BCX 06/16 neg History of Present Illness History of Present Illness ROS: chills, sob or chest pain low T, 99.7 today not happy about care in hosp since 06/15, could be depressed cont higher WBC to 13 still no solid BM, has very little liquid BM in the colostomy Vitals Vitals Vital Signs Date Time Temp Pulse Resp B/P (MAP) Pulse Ox O2 Delivery O2 Flow Rate FiO2 06/17/17 08:00 Room Air 06/17/17 08:00 74 126/58 06/17/17 07:00 98.1 18 95 98.1 06/16/17 18:08 2.0 Physical Exam Physical Exam General: Alert, Oriented X3, Cooperative, No acute distress Heart: Regular rate, Normal S1, Normal S2, No murmurs Lungs: Clear Abdomen: Soft, Other (stoma pink, no stool, incision without drainage, mild erythema mid incision) Extremities: No edema, Normal pulses Skin: No rashes, No breakdown Labs LABS Laboratory Tests Test 06/16/17 16:57 06/16/17 20:31 06/17/17 07:00 06/17/17 07:57 Glucose (Fingerstick) 143 mg/dL (70-99) 119 mg/dL (70-99) 127 mg/dL (70-99) White Blood Count 13.6 x10^3/uL (4.0-11.0) Red Blood Count 2.58 x10^6/uL (4.30-5.70) Hemoglobin 7.5 g/dL (13.0-17.5) Hematocrit 22.4 % (39.0-53.0) Mean Corpuscular Volume 87 fL (79-100) Mean Corpuscular Hemoglobin 29 pg (25-35) Mean Corpuscular Hemoglobin Concent 33 g/dL (31-37) Red Cell Distribution Width 13.9 % (11.5-14.5) Platelet Count 554 x10^3/uL (140-400) Neutrophils (%) (Auto) 79 % (31-73) Lymphocytes (%) (Auto) 8 % (24-48) Monocytes (%) (Auto) 9 % (0-9) Eosinophils (%) (Auto) 4 % (0-3) Basophils (%) (Auto) 1 % (0-3) Neutrophils # (Auto) 10.7 x10^3uL (1.8-7.7) Lymphocytes # (Auto) 1.0 x10^3/uL (1.0-4.8) Monocytes # (Auto) 1.3 x10^3/uL (0.0-1.1) Eosinophils # (Auto) 0.5 x10^3/uL (0.0-0.7) Basophils # (Auto) 0.1 x10^3/uL (0.0-0.2) Sodium Level 134 mmol/L (136-145) Potassium Level 3.8 mmol/L (3.5-5.1) Chloride Level 100 mmol/L (98-107) Carbon Dioxide Level 29 mmol/L (21-32) Anion Gap 5 (6-14) Blood Urea Nitrogen 18 mg/dL (8-26) Creatinine 1.0 mg/dL (0.7-1.3) Estimated GFR (Cockcroft-Gault) 74.8 Glucose Level 101 mg/dL (70-99) Calcium Level 8.2 mg/dL (8.5-10.1) Magnesium Level 1.7 mg/dL (1.8-2.4) Test 06/17/17 11:31 Glucose (Fingerstick) 135 mg/dL (70-99) Assessment and Plan Assessmemt and Plan Problems Medical Problems: (1) Abdominal pain Status: Acute (2) Elevated brain natriuretic peptide (BNP) level Status: Acute (3) Hypomagnesemia Status: Acute (4) Perforated abdominal viscus Status: Acute Problems: Comment Review of Relevant I have reviewed the following items ananda (where applicable) has been applied. Labs Laboratory Tests Test 06/15/17 16:23 06/15/17 20:52 06/16/17 04:30 06/16/17 08:07 Glucose (Fingerstick) 120 mg/dL (70-99) 129 mg/dL (70-99) 118 mg/dL (70-99) White Blood Count 13.4 x10^3/uL (4.0-11.0) Red Blood Count 3.18 x10^6/uL (4.30-5.70) Hemoglobin 9.2 g/dL (13.0-17.5) Hematocrit 27.1 % (39.0-53.0) Mean Corpuscular Volume 85 fL (79-100) Mean Corpuscular Hemoglobin 29 pg (25-35) Mean Corpuscular Hemoglobin Concent 34 g/dL (31-37) Red Cell Distribution Width 14.0 % (11.5-14.5) Platelet Count 528 x10^3/uL (140-400) Neutrophils (%) (Auto) 81 % (31-73) Lymphocytes (%) (Auto) 7 % (24-48) Monocytes (%) (Auto) 10 % (0-9) Eosinophils (%) (Auto) 2 % (0-3) Basophils (%) (Auto) 1 % (0-3) Neutrophils # (Auto) 10.8 x10^3uL (1.8-7.7) Lymphocytes # (Auto) 0.9 x10^3/uL (1.0-4.8) Monocytes # (Auto) 1.3 x10^3/uL (0.0-1.1) Eosinophils # (Auto) 0.3 x10^3/uL (0.0-0.7) Basophils # (Auto) 0.1 x10^3/uL (0.0-0.2) Sodium Level 135 mmol/L (136-145) Potassium Level 3.8 mmol/L (3.5-5.1) Chloride Level 100 mmol/L (98-107) Carbon Dioxide Level 29 mmol/L (21-32) Anion Gap 6 (6-14) Blood Urea Nitrogen 22 mg/dL (8-26) Creatinine 1.0 mg/dL (0.7-1.3) Estimated GFR (Cockcroft-Gault) 74.8 Glucose Level 137 mg/dL (70-99) Calcium Level 8.3 mg/dL (8.5-10.1) Phosphorus Level 3.1 mg/dL (2.6-4.7) Magnesium Level 1.7 mg/dL (1.8-2.4) Test 06/16/17 10:18 06/16/17 11:12 06/16/17 16:57 06/16/17 20:31 Urine Collection Type Unknown Urine Color Yellow Urine Clarity Cloudy Urine pH 7.5 Urine Specific [place] 1.010 Urine Protein Negative mg/dL (NEG-TRACE) Urine Glucose (UA) Negative mg/dL (NEG) Urine Ketones (Stick) Negative mg/dL (NEG) Urine Blood Negative (NEG) Urine Nitrite Negative (NEG) Urine Bilirubin Negative (NEG) Urine Urobilinogen Dipstick 1.0 mg/dL (0.2 mg/dL) Urine Leukocyte Esterase Negative (NEG) Urine RBC 0 /HPF (0-2) Urine WBC 0 /HPF (0-4) Urine Amorphous Sediment Present /HPF Urine Bacteria Few /HPF (0-FEW) Urine Mucus Slight /LPF Glucose (Fingerstick) 129 mg/dL (70-99) 143 mg/dL (70-99) 119 mg/dL (70-99) Test 06/17/17 07:00 06/17/17 07:57 06/17/17 11:31 White Blood Count 13.6 x10^3/uL (4.0-11.0) Red Blood Count 2.58 x10^6/uL (4.30-5.70) Hemoglobin 7.5 g/dL (13.0-17.5) Hematocrit 22.4 % (39.0-53.0) Mean Corpuscular Volume 87 fL (79-100) Mean Corpuscular Hemoglobin 29 pg (25-35) Mean Corpuscular Hemoglobin Concent 33 g/dL (31-37) Red Cell Distribution Width 13.9 % (11.5-14.5) Platelet Count 554 x10^3/uL (140-400) Neutrophils (%) (Auto) 79 % (31-73) Lymphocytes (%) (Auto) 8 % (24-48) Monocytes (%) (Auto) 9 % (0-9) Eosinophils (%) (Auto) 4 % (0-3) Basophils (%) (Auto) 1 % (0-3) Neutrophils # (Auto) 10.7 x10^3uL (1.8-7.7) Lymphocytes # (Auto) 1.0 x10^3/uL (1.0-4.8) Monocytes # (Auto) 1.3 x10^3/uL (0.0-1.1) Eosinophils # (Auto) 0.5 x10^3/uL (0.0-0.7) Basophils # (Auto) 0.1 x10^3/uL (0.0-0.2) Sodium Level 134 mmol/L (136-145) Potassium Level 3.8 mmol/L (3.5-5.1) Chloride Level 100 mmol/L (98-107) Carbon Dioxide Level 29 mmol/L (21-32) Anion Gap 5 (6-14) Blood Urea Nitrogen 18 mg/dL (8-26) Creatinine 1.0 mg/dL (0.7-1.3) Estimated GFR (Cockcroft-Gault) 74.8 Glucose Level 101 mg/dL (70-99) Calcium Level 8.2 mg/dL (8.5-10.1) Magnesium Level 1.7 mg/dL (1.8-2.4) Glucose (Fingerstick) 127 mg/dL (70-99) 135 mg/dL (70-99) Laboratory Tests Test 06/16/17 16:57 06/16/17 20:31 06/17/17 07:00 06/17/17 07:57 Glucose (Fingerstick) 143 mg/dL (70-99) 119 mg/dL (70-99) 127 mg/dL (70-99) White Blood Count 13.6 x10^3/uL (4.0-11.0) Red Blood Count 2.58 x10^6/uL (4.30-5.70) Hemoglobin 7.5 g/dL (13.0-17.5) Hematocrit 22.4 % (39.0-53.0) Mean Corpuscular Volume 87 fL (79-100) Mean Corpuscular Hemoglobin 29 pg (25-35) Mean Corpuscular Hemoglobin Concent 33 g/dL (31-37) Red Cell Distribution Width 13.9 % (11.5-14.5) Platelet Count 554 x10^3/uL (140-400) Neutrophils (%) (Auto) 79 % (31-73) Lymphocytes (%) (Auto) 8 % (24-48) Monocytes (%) (Auto) 9 % (0-9) Eosinophils (%) (Auto) 4 % (0-3) Basophils (%) (Auto) 1 % (0-3) Neutrophils # (Auto) 10.7 x10^3uL (1.8-7.7) Lymphocytes # (Auto) 1.0 x10^3/uL (1.0-4.8) Monocytes # (Auto) 1.3 x10^3/uL (0.0-1.1) Eosinophils # (Auto) 0.5 x10^3/uL (0.0-0.7) Basophils # (Auto) 0.1 x10^3/uL (0.0-0.2) Sodium Level 134 mmol/L (136-145) Potassium Level 3.8 mmol/L (3.5-5.1) Chloride Level 100 mmol/L (98-107) Carbon Dioxide Level 29 mmol/L (21-32) Anion Gap 5 (6-14) Blood Urea Nitrogen 18 mg/dL (8-26) Creatinine 1.0 mg/dL (0.7-1.3) Estimated GFR (Cockcroft-Gault) 74.8 Glucose Level 101 mg/dL (70-99) Calcium Level 8.2 mg/dL (8.5-10.1) Magnesium Level 1.7 mg/dL (1.8-2.4) Test 06/17/17 11:31 Glucose (Fingerstick) 135 mg/dL (70-99) Microbiology 06/16/17 Blood Culture - Preliminary, Resulted NO GROWTH AFTER 1 DAY 06/06/17 Anaerobic/Aerobic Culture - Final, Complete 06/06/17 Anaerobic Culture Result 1 (AISSATOU) - Final, Complete 06/06/17 Anaerobic Culture Result 2 (AISSATOU) - Final, Complete 06/06/17 Aerobic Culture - Final, Complete 06/06/17 Aerobic Culture Result 1 (AISSATOU) - Final, Complete 06/06/17 Aerobic Culture Result 2 (AISSATOU) - Final, Complete 06/06/17 Antimicrobic Susceptibility - Final, Complete Medications Current Medications Sodium Chloride 1,000 ml @ 1,000 mls/hr 1X ONCE IV Last administered on 08:22; Start 06/06/17 at 08:30; Stop 06/06/17 at 09:29; Status DC Ondansetron HCl (Zofran) 8 mg 1X ONCE IV Last administered on 06/06/17 08:23 ; Start 06/06/17 at 08:30; Stop 06/06/17 at 08:31; Status DC Morphine Sulfate 5 mg 1X ONCE IV Last administered on 06/06/17 08:29; Start 06/06/17 at 08:30; Stop 06/06/17 at 08:31; Status DC Potassium Chloride (Klor-Con) 40 meq 1X ONCE PO Last administered on 09:31; Start 06/06/17 at 08:30; Stop 06/06/17 at 08:31; Status DC Potassium Chloride/Sodium Chloride 1,000 ml @ 250 mls/hr 1X ONCE IV Last administered on 06/06/17 09:36; Start 06/06/17 at 08:30; Stop 06/06/17 at 12:29 ; Status DC Iohexol (Omnipaque 300 Mg/ml) 60 ml 1X ONCE IV Last administered on 06/06/17 08:51; Start 06/06/17 at 08:45; Stop 06/06/17 at 08:46; Status DC Magnesium Oxide (Magnesium Oxide) 800 mg 1X STAT PO Last administered on 09:31; Start 06/06/17 at 08:37; Stop 06/06/17 at 08:40; Status DC Info (Do NOT chart on this entry -- for MONITORING) 1 each PRN DAILY PRN MC SEE COMMENTS; Start 06/06/17 at 08:45; Stop 06/08/17 at 08:44; Status DC Metronidazole 100 ml @ 100 mls/hr 1X ONCE IV Last administered on 06/06/17 10:00; Start 06/06/17 at 09:30; Stop 06/06/17 at 10:29; Status DC Levofloxacin/ Dextrose (Levaquin Per Pharmacy) 1 each PRN DAILY PRN MC SEE COMMENTS; Start 06/06/17 at 09:30; Stop 06/08/17 at 09:20; Status DC Levofloxacin/ Dextrose 100 ml @ 100 mls/hr 1X ONCE IV ; Start 06/06/17 at 09: 30; Stop 06/06/17 at 10:29; Status DC Levofloxacin/ Dextrose 100 ml @ 100 mls/hr Q24H IV Last administered on t 11:36; Start 06/07/17 at 10:00; Stop 06/08/17 at 08:03; Status DC Rocuronium [place] (Zemuron) 100 mg STK-MED ONCE .ROUTE ; Start 06/06/17 at 10: 28; Stop 06/06/17 at 10:29; Status DC Fentanyl Citrate (Fentanyl 5ml Vial) 250 mcg STK-MED ONCE .ROUTE ; Start at 10:28; Stop 06/06/17 at 10:29; Status DC Propofol 20 ml @ As Directed STK-MED ONCE IV ; Start 06/06/17 at 10:32; Stop at 10:33; Status DC Lidocaine HCl (Lidocaine Pf 2% Vial) 5 ml STK-MED ONCE .ROUTE ; Start 06/06/17 at 10:32; Stop 06/06/17 at 10:33; Status DC Ondansetron HCl (Zofran) 4 mg STK-MED ONCE .ROUTE ; Start 06/06/17 at 10:33; Stop 06/06/17 at 10:34; Status DC Dexamethasone Sodium Phosphate (Decadron) 20 mg STK-MED ONCE .ROUTE ; Start 06/06/17 at 10:33; Stop 06/06/17 at 10:34; Status DC Multivitamins 10 ml/Folic Acid 1 mg/Thiamine HCl 100 mg/Ringer's Solution 1, 011.2 ml @ 1,000 mls/ hr 1X ONCE IV ; Start 06/06/17 at 11:30; Stop 06/06/17 at 12:30; Status DC Fentanyl Citrate (Fentanyl 2ml Vial) 25 mcg PRN Q5MIN PRN IV MILD PAIN; Start 06/06/17 at 11:45; Stop 06/07/17 at 11:44; Status DC Fentanyl Citrate (Fentanyl 2ml Vial) 50 mcg PRN Q5MIN PRN IV MODERATE PAIN Last administered on 06/06/17 17:24; Start 06/06/17 at 11:45; Stop 06/07/17 at 11:44; Status DC Morphine Sulfate 1 mg PRN Q10MIN PRN IV SEVERE PAIN Last administered on t 15:38; Start 06/06/17 at 11:45; Stop 06/07/17 at 11:44; Status DC Ringer's Solution 1,000 ml @ 30 mls/hr Q24H IV ; Start 06/06/17 at 11:39; Stop 06/06/17 at 23:38; Status DC Lidocaine HCl (Xylocaine-Mpf 1% Vial) 2 ml 1X PRN PRN ID IV START; Start at 11:45; Stop 06/07/17 at 11:44; Status DC Hydromorphone HCl (Dilaudid) 0.5 mg PRN Q10MIN PRN IV SEV PAIN, Second choice; Start 06/06/17 at 11:45; Stop 06/07/17 at 11:44; Status DC Prochlorperazine Edisylate (Compazine) 5 mg PACU PRN PRN IV NAUSEA, MRX1; Start 06/06/17 at 11:45; Stop 06/07/17 at 11:44; Status DC Phenylephrine HCl (Pedro-Synephrine Inj) 10 mg STK-MED ONCE .ROUTE ; Start at 11:58; Stop 06/06/17 at 11:59; Status DC Sodium Chloride (Sodium Chloride) 50 ml STK-MED ONCE IJ ; Start 06/06/17 at 11: 58; Stop 06/06/17 at 11:59; Status DC Sevoflurane (Ultane) 90 ml STK-MED ONCE IH ; Start 06/06/17 at 13:52; Stop 06/06 at 13:53; Status DC Neostigmine Methylsulfate 5 mg STK-MED ONCE .ROUTE ; Start 06/06/17 at 13:52; Stop 06/06/17 at 13:53; Status DC Glycopyrrolate (Robinul) 1 mg STK-MED ONCE .ROUTE ; Start 06/06/17 at 13:52; Stop 06/06/17 at 13:53; Status DC Fentanyl Citrate (Fentanyl 2ml Vial) 100 mcg STK-MED ONCE .ROUTE ; Start at 14:18; Stop 06/06/17 at 14:19; Status DC Diphenhydramine HCl (Benadryl) 25 mg PRN Q6HRS PRN IV ITCHING; Start 06/06/17 at 14:30 Enoxaparin Sodium (Lovenox 40mg Syringe) 40 mg Q24H SQ Last administered on 15:00; Start 06/06/17 at 15:00; Stop 06/06/17 at 15:41; Status DC Sodium Chloride (Normal Saline Flush) 3 ml QSHIFT PRN IV AFTER MEDS AND BLOOD DRAWS; Start 06/06/17 at 14:30 Potassium Chloride/Sodium Chloride 1,000 ml @ 100 mls/hr Q10H IV Last administered on 06/07/17 20:00; Start 06/06/17 at 15:00; Stop 06/08/17 at 09: 20; Status DC Hydromorphone HCl 30 ml @ 0 mls/hr CONT PRN PRN IV PROTOCOL; Start 06/06/17 at 14:30; Stop 06/06/17 at 17:30; Status DC Ondansetron HCl (Zofran) 4 mg PRN Q6HRS PRN IV NAUESA, 1ST CHOICE; Start at 14:30 Epinephrine (S2 Racepinephrine) 0.5 ml STK-MED ONCE .ROUTE ; Start 06/06/17 at 14:35; Stop 06/06/17 at 14:36; Status DC Propofol 50 ml @ As Directed STK-MED ONCE IV ; Start 06/06/17 at 14:38; Stop at 14:39; Status DC Succinylcholine Chloride (Anectine) 200 mg STK-MED ONCE .ROUTE ; Start 06/06/17 at 14:40; Stop 06/06/17 at 14:41; Status DC Epinephrine (S2 Racepinephrine) 0.5 ml 1X ONCE NEB Last administered on 14:43; Start 06/06/17 at 14:36; Stop 06/06/17 at 14:43; Status DC Midazolam HCl (Versed) 2 mg STK-MED ONCE .ROUTE ; Start 06/06/17 at 14:48; Stop 06/06/17 at 14:49; Status DC Propofol 100 ml @ 0 mls/hr CONT PRN IV SEE I/O RECORD; Start 06/06/17 at 15:15 ; Stop 06/08/17 at 09:20; Status DC Propofol 50 ml @ As Directed STK-MED ONCE IV ; Start 06/06/17 at 15:03; Stop at 15:04; Status DC Dexamethasone Sodium Phosphate (Decadron) 12 mg 1X ONCE IV Last administered on 06/06/17 15:09; Start 06/06/17 at 15:00; Stop 06/06/17 at 15:06; Status DC Dexamethasone Sodium Phosphate (Decadron) 4 mg STK-MED ONCE .ROUTE ; Start 06/06 at 15:05; Stop 06/06/17 at 15:06; Status DC Propofol 50 ml @ 0 mls/hr 1X ONCE IV Last administered on 06/06/17 15:02; Start 06/06/17 at 15:15; Stop 06/06/17 at 15:16; Status DC Succinylcholine Chloride (Anectine) 200 mg 1X ONCE IV ; Start 06/06/17 at 15:15 ; Stop 06/06/17 at 15:16; Status DC Midazolam HCl (Versed) 2 mg 1X ONCE IV ; Start 06/06/17 at 15:15; Stop at 15:16; Status DC Cellulose 1 each STK-MED ONCE .ROUTE Last administered on 06/06/17 13:35; Start 06/06/17 at 14:19; Stop 06/06/17 at 15:20; Status DC Enoxaparin Sodium (Lovenox 40mg Syringe) 40 mg Q24H SQ Last administered on 08:48; Start 06/07/17 at 09:00; Stop 06/12/17 at 10:16; Status DC Metronidazole 100 ml @ 100 mls/hr Q12HR IV Last administered on 06/12/17 21: 32; Start 06/06/17 at 21:00; Stop 06/13/17 at 07:45; Status DC Multivitamins 10 ml/Folic Acid 1 mg/Thiamine HCl 100 mg/Dextrose/ Lactated Ringer's 1,011.2 ml @ 100 mls/ hr DAILY IV Last administered on 06/07/17 09: 21; Start 06/07/17 at 09:00; Stop 06/08/17 at 08:06; Status DC Lorazepam (Ativan) 2 mg PRN Q4HRS PRN IV ANXIETY / AGITATION; Start 06/06/17 at 15:45; Stop 06/12/17 at 10:16; Status DC Famotidine (Pepcid) 20 mg BID IVP Last administered on 06/08/17 11:18; Start 06/06/17 at 21:00; Stop 06/09/17 at 07:53; Status DC Morphine Sulfate 2 mg PRN Q2HR PRN IV PAIN Last administered on 06/10/17 22: 59; Start 06/06/17 at 15:45 Morphine Sulfate 4 mg PRN Q2HR PRN IV PAIN Last administered on 06/11/17 08: 31; Start 06/06/17 at 15:45 Ondansetron HCl (Zofran) 4 mg PRN Q6HRS PRN IV NAUSEA/VOMITING; Start 06/06/17 at 15:45; Stop 06/06/17 at 15:45; Status DC Fentanyl Citrate 30 ml @ 0 mls/hr CONT PRN IV PROTOCOL Last administered on 02:54; Start 06/06/17 at 17:30; Stop 06/07/17 at 10:39; Status DC Midazolam HCl 100 ml @ 0 mls/hr CONT PRN IV SEE I/O RECORD; Start 06/06/17 at 23:00; Stop 06/08/17 at 09:20; Status DC Sodium Chloride 1,000 ml @ 1,000 mls/hr 1X ONCE IV Last administered on 23:34; Start 06/06/17 at 23:00; Stop 06/06/17 at 23:59; Status DC Magnesium Sulfate/ Dextrose 50 ml @ 25 mls/hr 1X ONCE IV Last administered on 06/07/17 09:28; Start 06/07/17 at 08:15; Stop 06/07/17 at 10:14; Status DC Info 1 each PRN DAILY PRN MC SEE COMMENTS Last administered on 06/17/17 11:49 ; Start 06/07/17 at 09:30 Methylprednisolone Sodium Succinate (SOLU-Medrol 125MG VIAL) 50 mg DAILY IV Last administered on 06/12/17 08:47; Start 06/07/17 at 11:00; Stop 06/12/17 at 10:16; Status DC Hydromorphone HCl 30 ml @ 0 mls/hr CONT PRN PRN IV PROTOCOL Last administered on 06/07/17 11:16; Start 06/07/17 at 10:45; Stop 06/09/17 at 08:57; Status DC Sodium Chloride 90 meq/Potassium Chloride 50 meq/ Potassium Phosphate 13.6 mmol/ Magnesium Sulfate 10 meq/ Calcium Gluconate 10 meq/ Multivitamins 10 ml/Chromium / Copper/Manganese/ Seleni/Zn 1 ml/ Total Parenteral Nutrition/Amino Acids/ Dextrose/ Fat Emulsion Intravenous 1,512 ml @ 63 mls/hr TPN CONT IV Last administered on 06/07/17 22:04; Start 06/07/17 at 22:00; Stop 06/08/17 at 21 :59; Status DC Influenza Virus Vaccine Quadrival (Fluarix Quad [id number] Syringe) 0.5 ml ONCE ONCE VAX IM Last administered on 06/08/17 13:23; Start 06/07/17 at 16:15; Stop 06/07/17 at 16:35; Status DC Pneumococcal Polyvalent Vaccine (Do NOT chart on this placeholder) 1 each PRN 1X PRN MC SEE COMMENTS; Start 06/07/17 at 16:45; Status UNV Pneumococcal Polyvalent Vaccine (Pneumovax 23) 0.5 ml ONCE ONCE VAX IM Last administered on 06/08/17 13:25; Start 06/07/17 at 17:00; Stop 06/07/17 at 17 :01; Status DC Ceftriaxone Sodium 1 gm/ Sodium Chloride 50 ml @ 100 mls/hr Q24H IV Last administered on 06/12/17 08:45; Start 06/08/17 at 09:00; Stop 06/13/17 at 07 :45; Status DC Sodium Phosphate 20 mmol/Dextrose 256.6667 ml @ 64.167 m... 1X ONCE IV Last administered on 06/08/17 08:58; Start 06/08/17 at 09:00; Stop 06/08/17 at 12 :59; Status DC Multi-Ingred Cream/Lotion/Oil/ Oint (Artificial Tears Eye Oint) 1 juvenal PRN Q1HR PRN OU DRY EYE; Start 06/08/17 at 09:15 Sodium Chloride 90 meq/Potassium Chloride 40 meq/ Potassium Phosphate 17 mmol/ Magnesium Sulfate 10 meq/Calcium Gluconate 10 meq/ Multivitamins 10 ml/Chromium / Copper/Manganese/ Seleni/Zn 1 ml/ Total Parenteral Nutrition/Amino Acids/ Dextrose/ Fat Emulsion Intravenous 1,512 ml @ 63 mls/hr TPN CONT IV Last administered on 06/08/17 22:42; Start 06/08/17 at 22:00; Stop 06/09/17 at 21 :59; Status DC Diclofenac Sodium (Voltaren) 1 juvenal BID TP Last administered on 06/16/17 09:16 ; Start 06/08/17 at 21:00 Oxycodone/ Acetaminophen (Percocet 10/325) 1 tab PRN Q4HRS PRN PO pain Last administered on 06/15/17 08:48; Start 06/09/17 at 08:00; Stop 06/15/17 at 10 :39; Status DC Magnesium Sulfate/ Dextrose 50 ml @ 25 mls/hr 1X ONCE IV Last administered on 06/09/17 09:31; Start 06/09/17 at 08:00; Stop 06/09/17 at 09:59; Status DC Potassium Phosphate (K-Phos Original) 500 mg BID PO Last administered on 07:59; Start 06/09/17 at 09:00 Lidocaine (Lidoderm) 1 patch DAILY TD Last administered on 06/09/17 09:36; Start 06/09/17 at 09:00; Stop 06/10/17 at 20:50; Status DC Potassium Phosphate 13.6 mmol/Sodium Chloride 104.5333 ml @ 52.267 m... 1X ONCE IV Last administered on 06/09/17 13:51; Start 06/09/17 at 13:30; Stop 06/09/17 at 15:29; Status DC Sodium Chloride 40 meq/Sodium Acetate 50 meq/ Potassium Chloride 40 meq/ Potassium Phosphate 20 mmol/ Magnesium Sulfate 15 meq/Calcium Gluconate 10 meq/ Multivitamins 10 ml/Chromium/ Copper/Manganese/ Seleni/Zn 1 ml/ Total Parenteral Nutrition/Amino Acids/Dextrose/ Fat Emulsion Intravenous 1,512 ml @ 63 mls/hr TPN CONT IV Last administered on 06/09/17 22:11; Start 06/09/17 at 22:00; Stop 06/10/17 at 21:59; Status DC Potassium Chloride (Klor-Con) 40 meq 1X ONCE PO Last administered on 10:40; Start 06/10/17 at 09:30; Stop 06/10/17 at 09:31; Status DC Potassium Chloride (Klor-Con) 20 meq [id number] PO Last administered on 08:00; Start 06/11/17 at 08:00 Magnesium Sulfate/ Dextrose 50 ml @ 25 mls/hr 1X ONCE IV Last administered on 06/10/17 10:38; Start 06/10/17 at 10:00; Stop 06/10/17 at 11:59; Status DC Sodium Chloride 40 meq/Sodium Acetate 50 meq/ Potassium Acetate 60 meq/ Potassium Phosphate 18 mmol/ Magnesium Sulfate 18 meq/Calcium Gluconate 10 meq/ Multivitamins 10 ml/Chromium/ Copper/Manganese/ Seleni/Zn 1 ml/ Total Parenteral Nutrition/Amino Acids/Dextrose/ Fat Emulsion Intravenous 1,512 ml @ 63 mls/hr TPN CONT IV Last administered on 06/10/17 21:43; Start 06/10/17 at 22:00; Stop 06/11/17 at 22:00; Status DC Lidocaine (Lidoderm) 1 patch QHS TD Last administered on 06/10/17 21:37; Start 06/10/17 at 21:00; Stop 06/12/17 at 05:01; Status DC Magnesium Sulfate/ Dextrose 100 ml @ 25 mls/hr 1X ONCE IV Last administered on 06/11/17 11:22; Start 06/11/17 at 09:00; Stop 06/11/17 at 12:59; Status DC Lisinopril (Prinivil) 10 mg DAILY PO Last administered on 06/13/17 08:34; Start 06/11/17 at 13:00; Stop 06/13/17 at 09:19; Status DC Metoprolol Succinate (Toprol Xl) 100 mg DAILY PO Last administered on 08:00; Start 06/11/17 at 13:00 Hydrochlorothiazide (Hydrodiuril) 25 mg DAILY PO Last administered on 07:59; Start 06/11/17 at 13:00 Sodium Chloride 40 meq/Sodium Acetate 50 meq/ Potassium Acetate 60 meq/ Potassium Phosphate 18 mmol/ Magnesium Sulfate 18 meq/Calcium Gluconate 10 meq/ Multivitamins 10 ml/Chromium/ Copper/Manganese/ Seleni/Zn 1 ml/ Total Parenteral Nutrition/Amino Acids/Dextrose/ Fat Emulsion Intravenous 1,512 ml @ 63 mls/hr TPN CONT IV Last administered on 06/11/17 21:43; Start 06/11/17 at 22:00; Stop 06/12/17 at 21:59; Status DC Lidocaine (Lidoderm) 1 patch DAILY TD Last administered on 06/13/17 08:35; Start 06/12/17 at 09:00 Hydralazine HCl (Apresoline Inj) 10 mg PRN Q4HRS PRN IVP ELEVATED BP, SEE COMMENTS; Start 06/12/17 at 09:00 Magnesium Sulfate/ Dextrose 100 ml @ 25 mls/hr 1X ONCE IV Last administered on 06/12/17 09:53; Start 06/12/17 at 09:30; Stop 06/12/17 at 13:29; Status DC Magnesium Oxide (Magnesium Oxide) 400 mg DAILY PO Last administered on 07:58; Start 06/12/17 at 09:30 Lorazepam (Ativan) 1 mg PRN Q4HRS PRN IV ANXIETY / AGITATION; Start 06/12/17 at 10:15 Alprazolam (Xanax) 0.5 mg PRN Q8HRS PRN PO ANXIETY / AGITATION; Start at 10:15 Prednisone (Prednisone) 20 mg DAILY PO Last administered on 06/13/17 08:34; Start 06/13/17 at 09:00; Stop 06/13/17 at 15:06; Status DC Sodium Chloride 60 meq/Sodium Acetate 50 meq/ Potassium Acetate 60 meq/ Potassium Phosphate 18 mmol/ Magnesium Sulfate 27 meq/Calcium Gluconate 10 meq/ Multivitamins 10 ml/Chromium/ Copper/Manganese/ Seleni/Zn 1 ml/ Total Parenteral Nutrition/Amino Acids/Dextrose/ Fat Emulsion Intravenous 1,512 ml @ 63 mls/hr TPN CONT IV Last administered on 06/12/17 21:33; Start 06/12/17 at 22:00; Stop 06/13/17 at 21:59; Status DC Metronidazole (Flagyl) 500 mg Q12HR PO Last administered on 06/15/17 21:48; Start 06/13/17 at 09:00; Stop 06/16/17 at 09:05; Status DC Cefpodoxime Proxetil (Vantin) 200 mg BID PO Last administered on 06/15/17 21: 49; Start 06/13/17 at 09:00; Stop 06/16/17 at 09:05; Status DC Lisinopril (Prinivil) 20 mg DAILY PO Last administered on 06/17/17 07:59; Start 06/14/17 at 09:00 Lisinopril (Prinivil) 10 mg 1X ONCE PO ; Start 06/13/17 at 09:30; Stop at 09:31; Status DC Docusate Sodium (Colace) 100 mg BID PO Last administered on 06/17/17 07:59; Start 06/13/17 at 11:30 Sodium Chloride 60 meq/Sodium Acetate 50 meq/ Potassium Acetate 60 meq/ Potassium Phosphate 18 mmol/ Magnesium Sulfate 27 meq/Calcium Gluconate 10 meq/ Multivitamins 10 ml/Chromium/ Copper/Manganese/ Seleni/Zn 1 ml/ Total Parenteral Nutrition/Amino Acids/Dextrose/ Fat Emulsion Intravenous 1,512 ml @ 63 mls/hr TPN CONT IV Last administered on 06/13/17 22:31; Start 06/13/17 at 22:00; Stop 06/14/17 at 21:59; Status DC Lisinopril (Prinivil) 10 mg 1X ONCE PO Last administered on 06/13/17 16:18; Start 06/13/17 at 14:45; Stop 06/13/17 at 14:46; Status DC Polyethylene Glycol (miraLAX PACKET) 17 gm DAILY PO ; Start 06/14/17 at 09:30; Stop 06/14/17 at 11:47; Status DC Magnesium Hydroxide (Milk Of Magnesia) 2,400 mg PRN DAILY PRN PO CONSTIPATION; Start 06/14/17 at 09:30; Stop 06/14/17 at 11:47; Status DC Magnesium Hydroxide (Milk Of Magnesia) 2,400 mg 1X ONCE PO ; Start 06/14/17 at 09:30; Stop 06/14/17 at 09:31; Status Cancel Magnesium Sulfate/ Dextrose 100 ml @ 25 mls/hr 1X ONCE IV Last administered on 06/14/17 12:03; Start 06/14/17 at 10:00; Stop 06/14/17 at 13:59; Status DC Sodium Chloride 80 meq/Sodium Acetate 50 meq/ Potassium Acetate 60 meq/ Potassium Phosphate 18 mmol/ Magnesium Sulfate 27 meq/Calcium Gluconate 10 meq/ Multivitamins 10 ml/Chromium/ Copper/Manganese/ Seleni/Zn 1 ml/ Total Parenteral Nutrition/Amino Acids/Dextrose/ Fat Emulsion Intravenous 1,512 ml @ 63 mls/hr TPN CONT IV Last administered on 06/14/17 22:34; Start 06/14/17 at 22:00; Stop 06/15/17 at 21:59; Status DC Hydromorphone HCl (Dilaudid) 1 mg 1X ONCE IV Last administered on 06/14/17 15:47; Start 06/14/17 at 13:15; Stop 06/14/17 at 13:16; Status DC Iohexol (Omnipaque 300 Mg/ml) 75 ml 1X ONCE IV Last administered on 13:56; Start 06/14/17 at 13:30; Stop 06/14/17 at 13:31; Status DC Info (Do NOT chart on this entry -- for MONITORING) 1 each PRN DAILY PRN MC SEE COMMENTS; Start 06/14/17 at 13:15; Stop 06/16/17 at 13:14; Status DC Oxycodone/ Acetaminophen (Percocet 10/325) 1 tab Q4HRS PO Last administered on 06/17/17 08:00; Start 06/15/17 at 12:00 Sodium Chloride 80 meq/Sodium Acetate 50 meq/ Potassium Acetate 60 meq/ Potassium Phosphate 18 mmol/ Magnesium Sulfate 27 meq/Calcium Gluconate 10 meq/ Multivitamins 10 ml/Chromium/ Copper/Manganese/ Seleni/Zn 1 ml/ Total Parenteral Nutrition/Amino Acids/Dextrose/ Fat Emulsion Intravenous 1,512 ml @ 63 mls/hr TPN CONT IV Last administered on 06/15/17 22:14; Start 06/15/17 at 22:00; Stop 06/16/17 at 21:59; Status DC Meropenem 1 gm/ Sodium Chloride 100 ml @ 200 mls/hr Q8HRS IV Last administered on 06/17/17 05:58; Start 06/16/17 at 14:00 Vancomycin HCl (Vanco Per Pharmacy) 1 each PRN DAILY PRN MC SEE COMMENTS Last administered on 06/16/17 12:58; Start 06/16/17 at 09:00 Fluconazole/ Sodium Chloride 200 ml @ 100 mls/hr Q24H IV Last administered on 06/17/17 10:00; Start 06/16/17 at 10:00 Vancomycin HCl 2 gm/Dextrose 500 ml @ 250 mls/hr 1X ONCE IV Last administered on 06/16/17 11:57; Start 06/16/17 at 11:00; Stop 06/16/17 at 12 :59; Status DC Magnesium Sulfate/ Dextrose 50 ml @ 25 mls/hr 1X ONCE IV Last administered on 06/16/17 11:56; Start 06/16/17 at 10:30; Stop 06/16/17 at 12:30; Status DC Vancomycin HCl 1.25 gm/Dextrose 250 ml @ 167 mls/hr Q12H IV Last administered on 06/17/17 00:17; Start 06/17/17 at 00:00 Vancomycin HCl 1 each 1X ONCE MC ; Start 06/18/17 at 23:30; Stop 06/18/17 at 23:31 Sodium Chloride 80 meq/Sodium Acetate 50 meq/ Potassium Acetate 60 meq/ Potassium Phosphate 18 mmol/ Magnesium Sulfate 30 meq/Calcium Gluconate 10 meq/ Multivitamins 10 ml/Chromium/ Copper/Manganese/ Seleni/Zn 1 ml/ Total Parenteral Nutrition/Amino Acids/Dextrose/ Fat Emulsion Intravenous 1,512 ml @ 63 mls/hr TPN CONT IV Last administered on 06/16/17 22:03; Start 06/16/17 at 22:00; Stop 06/17/17 at 21:59 Lactobacillus Acidophilus (Bacid, Jenniffer-Bid) 1 tab BID PO Last administered on 06/17/17 07:58; Start 06/16/17 at 21:00 Magnesium Sulfate/ Dextrose 50 ml @ 25 mls/hr 1X ONCE IV ; Start 06/17/17 at 10:00; Stop 06/17/17 at 11:59; Status DC Sodium Chloride 80 meq/Sodium Acetate 50 meq/ Potassium Acetate 60 meq/ Potassium Phosphate 18 mmol/ Magnesium Sulfate 30 meq/Calcium Gluconate 10 meq/ Multivitamins 10 ml/Chromium/ Copper/Manganese/ Seleni/Zn 1 ml/ Total Parenteral Nutrition/Amino Acids/Dextrose/ Fat Emulsion Intravenous 1,512 ml @ 63 mls/hr TPN CONT IV ; Start 06/17/17 at 22:00; Stop 06/18/17 at 21:59 Active Scripts Active Reported [prednisone taper] Metoprolol Succinate ( Xl ) (Metoprolol Succinate) 100 Mg Tab.er.24h 1 Tab PO DAILY Lisinopril 10 Mg Tablet 1 Tab PO DAILY Hydrochlorothiazide Tablet (Hydrochlorothiazide) 50 Mg Tablet 25 Tab PO DAILY Vitals/I & O Vital Sign - Last 24 Hours 06/16/17 06/16/17 06/16/17 06/16/17 12:16 15:00 18:08 19:15 Temp 99.0 98.5 99.0 98.5 Pulse 69 81 Resp 18 16 B/P (MAP) 167/85 (112) 137/70 (92) Pulse Ox 96 95 97 O2 Delivery Room Air Room Air Room Air O2 Flow Rate 2.0 2.0 06/16/17 06/16/17 06/16/17 06/16/17 19:57 20:00 21:06 23:00 Temp 98.7 98.7 Pulse 53 Resp 18 B/P (MAP) 118/63 (81) Pulse Ox 95 95 94 O2 Delivery Room Air Room Air 06/17/17 06/17/17 06/17/17 06/17/17 00:05 01:05 03:00 03:57 Temp 96.1 96.1 Pulse 74 Resp 16 18 B/P (MAP) 126/58 (80) Pulse Ox 95 98 95 O2 Delivery Room Air Room Air Room Air 06/17/17 06/17/17 06/17/17 06/17/17 05:09 07:00 07:59 08:00 Temp 98.1 98.1 Pulse 77 65 74 Resp 18 B/P (MAP) 164/94 (117) 164/94 126/58 Pulse Ox 95 O2 Delivery Room Air Room Air 06/17/17 08:00 O2 Delivery Room Air KRISTIN PEÑA MD Jun 17, 2017 12:13
[2017-06-17 15:00] VITALS: BP 114/65
[2017-06-17 19:00] VITALS: BP 102/51
[2017-06-17] MEDS ORDERED: AMINO ACIDS IV SCH ×11 (22:00)
[2017-06-17] MEDS ORDERED: TOTAL PARENTERAL NUTRITION IV SCH ×11 (22:00)
[2017-06-17] MEDS ORDERED: [UNRECOGNIZED DRUG - OTHER] IV SCH ×11 (22:00)
[2017-06-17] MEDS ORDERED: DEXTROSE 70% IV SCH ×11 (22:00)
[2017-06-17 22:47] VITALS: BP 110/44
[2017-06-18] MEDS: VANCOMYCIN 1.25 GM in IV DEXTROSE 5% 250 ML IV SCH ×2 (00:01→12:20)
[2017-06-18] MEDS: oxyCODONE/APAP 10/325 1 TAB TABLET PO SCH ×6 (00:02→19:36)
[2017-06-18 03:00] VITALS: BP 127/58
[2017-06-18] MEDS: MEROPENEM 1 GM in IV NORMAL SALINE 100ML 100 ML IV SCH ×3 (06:00→22:06)
[2017-06-18 06:33] LABS: CALCIUM 8.2 mg/dL (8.5-10.1); CREATININE 1.1 mg/dL (0.7-1.3)
[2017-06-18 06:35] LABS: % SAT IRON 8 % (15-34); IRON,SERUM 10 ug/dL (65-175)
[2017-06-18 07:00] VITALS: BP 112/58
[2017-06-18 07:16] LABS: BASO # 0.1 x10^3/uL (0.0-0.2); BASO % 1 % (0-3); EOS % 3 % (0-3); HEMATOCRIT 25.6 % (39.0-53.0); HEMOGLOBIN 8.5 g/dL (13.0-17.5); LYMPH % 9 % (24-48); MEAN CORPUSCULAR HEMOGLOBIN 29 pg (25-35); MEAN CORPUSCULAR HGB CONC 33 g/dL (31-37); MEAN CORPUSCULAR VOLUME 86 fL (79-100); MONO % 11 % (0-9); NEUT % 76 % (31-73); PLATELET COUNT 583 x10^3/uL (140-400); RED BLOOD COUNT 2.96 x10^6/uL (4.30-5.70)
[2017-06-18] MEDS: POTASSIUM CHLORIDE 20 MEQ TABLET.ER. PO SCH (07:57)
[2017-06-18] MEDS: LIDOCAINE (700MG/PATCH) PATCH. TD SCH (09:00)
[2017-06-18] MEDS: DICLOFENAC SODIUM 1% TOPICAL GEL 100GM TUBE. TP SCH ×2 (09:00→20:58)
[2017-06-18] MEDS: LACTOBACILLUS ACIDOPH & BULGAR 1 TABLET. PO SCH ×2 (09:21→20:58)
[2017-06-18] MEDS: DOCUSATE SODIUM 100 MG CAPSULE. PO SCH ×2 (09:21→20:57)
[2017-06-18] MEDS: MAGNESIUM OXIDE 400 MG TABLET PO SCH (09:21)
[2017-06-18] MEDS: hydroCHLOROthiazide 25 MG TABLET PO SCH (09:21)
[2017-06-18] MEDS: LISINOPRIL 20 MG TABLET PO SCH (09:22)
[2017-06-18] MEDS: POTASSIUM PHOSPHATE,MONOBASIC 500 MG TABLET. PO SCH ×2 (09:22→20:58)
[2017-06-18] MEDS: METOPROLOL SUCC 24HR ER 100 MG TAB.ER.24H. PO SCH (09:23)
[2017-06-18] MEDS: FLUCONAZOLE 400MG/200ML PREMIX 200 ML IV SCH (10:11)
--- NOTE | 2017-06-18 10:55 | PDOC ---
Infectious Disease Note Subjective Subjective Remains on TPN Pain controlled at the moment Waiting for his to arrive to get up and walk Interrupted sleep d/t pump peeping all night Fever Tmax 101.3 ROS ROS GEN: Denies chills, sweats CV: Denies chest pain RESP: Denies shortness of air, cough GI: Denies n/v Vital Sign Vital Signs Vital Signs Date Time Temp Pulse Resp B/P (MAP) Pulse Ox O2 Delivery O2 Flow Rate FiO2 06/18/17 09:23 64 112/58 06/18/17 08:02 18 95 Room Air 2.0 06/18/17 07:00 99.1 99.1 Physical Exam PHYSICAL EXAM GENERAL: Propped up in bed, NAD LUNGS: Clear HEART: S1S2, no gallop, no murmur ABD: Soft, NT to light palpation, drain intact, midline incision approx, mildly erythematous w/ minimal serous drainage, ostomy EXT: No edema, no cyanosis [employer]: Alert, oriented x 3, no focal neurologic deficit SKIN: No rash LUE-PICC. clean Labs Lab Laboratory Tests Test 06/17/17 11:31 06/17/17 17:21 06/17/17 20:56 06/18/17 05:55 Glucose (Fingerstick) 135 mg/dL (70-99) 130 mg/dL (70-99) 111 mg/dL (70-99) White Blood Count 11.0 x10^3/uL (4.0-11.0) Red Blood Count 2.96 x10^6/uL (4.30-5.70) Hemoglobin 8.5 g/dL (13.0-17.5) Hematocrit 25.6 % (39.0-53.0) Mean Corpuscular Volume 86 fL (79-100) Mean Corpuscular Hemoglobin 29 pg (25-35) Mean Corpuscular Hemoglobin Concent 33 g/dL (31-37) Red Cell Distribution Width 14.0 % (11.5-14.5) Platelet Count 583 x10^3/uL (140-400) Neutrophils (%) (Auto) 76 % (31-73) Lymphocytes (%) (Auto) 9 % (24-48) Monocytes (%) (Auto) 11 % (0-9) Eosinophils (%) (Auto) 3 % (0-3) Basophils (%) (Auto) 1 % (0-3) Neutrophils # (Auto) 8.4 x10^3uL (1.8-7.7) Lymphocytes # (Auto) 1.0 x10^3/uL (1.0-4.8) Monocytes # (Auto) 1.2 x10^3/uL (0.0-1.1) Eosinophils # (Auto) 0.3 x10^3/uL (0.0-0.7) Basophils # (Auto) 0.1 x10^3/uL (0.0-0.2) Sodium Level 132 mmol/L (136-145) Potassium Level 4.0 mmol/L (3.5-5.1) Chloride Level 98 mmol/L (98-107) Carbon Dioxide Level 29 mmol/L (21-32) Anion Gap 5 (6-14) Blood Urea Nitrogen 19 mg/dL (8-26) Creatinine 1.1 mg/dL (0.7-1.3) Estimated GFR (Cockcroft-Gault) 67.0 Glucose Level 118 mg/dL (70-99) Calcium Level 8.2 mg/dL (8.5-10.1) Magnesium Level 1.8 mg/dL (1.8-2.4) Iron Level 10 ug/dL (65-175) Total Iron Binding Capacity 121 ug/dL (250-450) Iron Saturation 8 % (15-34) Ferritin 458 ng/mL (26-388) Test 06/18/17 07:45 Glucose (Fingerstick) 127 mg/dL (70-99) Micro BLOOD CULTURE Preliminary NO GROWTH AFTER 2 DAY Objective Assessment Fever Perforated viscus with fecal peritonitis, E. 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 Abdominal pain, better Respiratory failure - some RLL consolidation Chronic back pain HTN Leukocytosis, ? steroids- off now- trending down Anemia Plan Plan of Care vanc, Meropenem & Fluconazole monitor incision and temp F/u labs/cultures Supportive care Patient seen and examined. Chart reviewed in detail. Case discussed with [employer]. Agree with above plan. JUICE MADRIGAL APRN Jun 18, 2017 10:55 YVETTE GOYAL MD Jun 18, 2017 17:36
[2017-06-18 11:00] VITALS: BP 96/51
--- NOTE | 2017-06-18 11:01 | PDOC ---
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 peritonitis - sepsis with peritonitis Persistent hypomagnesemia HTN HLD NEW onset afib with RVR, sinus now hypokalemia, corrected moderate EtOH intake history of 3 drinks per day DESTINEE, dehydration, vasomotor mild malnutrition Hypophosphatemia, related to malnutrition corrected Acute on chronic sciatica OCD, but no home meds listed alirezaalexis with ID on 06/16 on full liquid diet w/ TPN pain control, now 11/05, with sched oxy replete Mag PT and OT on his terms, History of Present Illness History of Present Illness he had many complaints today, not medical, about timing of events, he wants items on a better schedule, he wants grape juice available at all times, he thinks it is outrageous to take more than 3 pills at a time. wants PT to work around his schedule, pain meds now scheduled, I tried to explain that this is not standard I spent > 20 minutes discussing these issues and trying to find agreeable solutions to help his stay here. feels bloated and gassy Vitals Vitals Vital Signs Date Time Temp Pulse Resp B/P (MAP) Pulse Ox O2 Delivery O2 Flow Rate FiO2 06/18/17 09:23 64 112/58 06/18/17 08:02 18 95 Room Air 2.0 06/18/17 07:00 99.1 99.1 Physical Exam Physical Exam General: Alert, Oriented X3, Cooperative, No acute distress Heart: Regular rate, Normal S1, Normal S2, No murmurs Lungs: Clear Abdomen: Soft, Other (stoma pink, no stool, incision without drainage, mild erythema mid incision) Extremities: No edema, Normal pulses Skin: No rashes, No breakdown Labs LABS Laboratory Tests Test 06/17/17 11:31 06/17/17 17:21 06/17/17 20:56 06/18/17 05:55 Glucose (Fingerstick) 135 mg/dL (70-99) 130 mg/dL (70-99) 111 mg/dL (70-99) White Blood Count 11.0 x10^3/uL (4.0-11.0) Red Blood Count 2.96 x10^6/uL (4.30-5.70) Hemoglobin 8.5 g/dL (13.0-17.5) Hematocrit 25.6 % (39.0-53.0) Mean Corpuscular Volume 86 fL (79-100) Mean Corpuscular Hemoglobin 29 pg (25-35) Mean Corpuscular Hemoglobin Concent 33 g/dL (31-37) Red Cell Distribution Width 14.0 % (11.5-14.5) Platelet Count 583 x10^3/uL (140-400) Neutrophils (%) (Auto) 76 % (31-73) Lymphocytes (%) (Auto) 9 % (24-48) Monocytes (%) (Auto) 11 % (0-9) Eosinophils (%) (Auto) 3 % (0-3) Basophils (%) (Auto) 1 % (0-3) Neutrophils # (Auto) 8.4 x10^3uL (1.8-7.7) Lymphocytes # (Auto) 1.0 x10^3/uL (1.0-4.8) Monocytes # (Auto) 1.2 x10^3/uL (0.0-1.1) Eosinophils # (Auto) 0.3 x10^3/uL (0.0-0.7) Basophils # (Auto) 0.1 x10^3/uL (0.0-0.2) Sodium Level 132 mmol/L (136-145) Potassium Level 4.0 mmol/L (3.5-5.1) Chloride Level 98 mmol/L (98-107) Carbon Dioxide Level 29 mmol/L (21-32) Anion Gap 5 (6-14) Blood Urea Nitrogen 19 mg/dL (8-26) Creatinine 1.1 mg/dL (0.7-1.3) Estimated GFR (Cockcroft-Gault) 67.0 Glucose Level 118 mg/dL (70-99) Calcium Level 8.2 mg/dL (8.5-10.1) Magnesium Level 1.8 mg/dL (1.8-2.4) Iron Level 10 ug/dL (65-175) Total Iron Binding Capacity 121 ug/dL (250-450) Iron Saturation 8 % (15-34) Ferritin 458 ng/mL (26-388) Test 06/18/17 07:45 Glucose (Fingerstick) 127 mg/dL (70-99) Review of Systems Review of Systems abd pain 11/05, thirstry cannot sleep due to IV pole beeping, Assessment and Plan Assessmemt and Plan Problems Medical Problems: (1) Abdominal pain Status: Acute (2) Elevated brain natriuretic peptide (BNP) level Status: Acute (3) Hypomagnesemia Status: Acute (4) Perforated abdominal viscus Status: Acute Problems: Comment Review of Relevant I have reviewed the following items ananda (where applicable) has been applied. Labs Laboratory Tests Test 06/16/17 11:12 06/16/17 16:57 06/16/17 20:31 06/17/17 07:00 Glucose (Fingerstick) 129 mg/dL (70-99) 143 mg/dL (70-99) 119 mg/dL (70-99) White Blood Count 13.6 x10^3/uL (4.0-11.0) Red Blood Count 2.58 x10^6/uL (4.30-5.70) Hemoglobin 7.5 g/dL (13.0-17.5) Hematocrit 22.4 % (39.0-53.0) Mean Corpuscular Volume 87 fL (79-100) Mean Corpuscular Hemoglobin 29 pg (25-35) Mean Corpuscular Hemoglobin Concent 33 g/dL (31-37) Red Cell Distribution Width 13.9 % (11.5-14.5) Platelet Count 554 x10^3/uL (140-400) Neutrophils (%) (Auto) 79 % (31-73) Lymphocytes (%) (Auto) 8 % (24-48) Monocytes (%) (Auto) 9 % (0-9) Eosinophils (%) (Auto) 4 % (0-3) Basophils (%) (Auto) 1 % (0-3) Neutrophils # (Auto) 10.7 x10^3uL (1.8-7.7) Lymphocytes # (Auto) 1.0 x10^3/uL (1.0-4.8) Monocytes # (Auto) 1.3 x10^3/uL (0.0-1.1) Eosinophils # (Auto) 0.5 x10^3/uL (0.0-0.7) Basophils # (Auto) 0.1 x10^3/uL (0.0-0.2) Sodium Level 134 mmol/L (136-145) Potassium Level 3.8 mmol/L (3.5-5.1) Chloride Level 100 mmol/L (98-107) Carbon Dioxide Level 29 mmol/L (21-32) Anion Gap 5 (6-14) Blood Urea Nitrogen 18 mg/dL (8-26) Creatinine 1.0 mg/dL (0.7-1.3) Estimated GFR (Cockcroft-Gault) 74.8 Glucose Level 101 mg/dL (70-99) Calcium Level 8.2 mg/dL (8.5-10.1) Magnesium Level 1.7 mg/dL (1.8-2.4) Test 06/17/17 07:57 06/17/17 11:31 06/17/17 17:21 06/17/17 20:56 Glucose (Fingerstick) 127 mg/dL (70-99) 135 mg/dL (70-99) 130 mg/dL (70-99) 111 mg/dL (70-99) Test 06/18/17 05:55 06/18/17 07:45 White Blood Count 11.0 x10^3/uL (4.0-11.0) Red Blood Count 2.96 x10^6/uL (4.30-5.70) Hemoglobin 8.5 g/dL (13.0-17.5) Hematocrit 25.6 % (39.0-53.0) Mean Corpuscular Volume 86 fL (79-100) Mean Corpuscular Hemoglobin 29 pg (25-35) Mean Corpuscular Hemoglobin Concent 33 g/dL (31-37) Red Cell Distribution Width 14.0 % (11.5-14.5) Platelet Count 583 x10^3/uL (140-400) Neutrophils (%) (Auto) 76 % (31-73) Lymphocytes (%) (Auto) 9 % (24-48) Monocytes (%) (Auto) 11 % (0-9) Eosinophils (%) (Auto) 3 % (0-3) Basophils (%) (Auto) 1 % (0-3) Neutrophils # (Auto) 8.4 x10^3uL (1.8-7.7) Lymphocytes # (Auto) 1.0 x10^3/uL (1.0-4.8) Monocytes # (Auto) 1.2 x10^3/uL (0.0-1.1) Eosinophils # (Auto) 0.3 x10^3/uL (0.0-0.7) Basophils # (Auto) 0.1 x10^3/uL (0.0-0.2) Sodium Level 132 mmol/L (136-145) Potassium Level 4.0 mmol/L (3.5-5.1) Chloride Level 98 mmol/L (98-107) Carbon Dioxide Level 29 mmol/L (21-32) Anion Gap 5 (6-14) Blood Urea Nitrogen 19 mg/dL (8-26) Creatinine 1.1 mg/dL (0.7-1.3) Estimated GFR (Cockcroft-Gault) 67.0 Glucose Level 118 mg/dL (70-99) Calcium Level 8.2 mg/dL (8.5-10.1) Magnesium Level 1.8 mg/dL (1.8-2.4) Iron Level 10 ug/dL (65-175) Total Iron Binding Capacity 121 ug/dL (250-450) Iron Saturation 8 % (15-34) Ferritin 458 ng/mL (26-388) Glucose (Fingerstick) 127 mg/dL (70-99) Laboratory Tests Test 06/17/17 11:31 06/17/17 17:21 06/17/17 20:56 06/18/17 05:55 Glucose (Fingerstick) 135 mg/dL (70-99) 130 mg/dL (70-99) 111 mg/dL (70-99) White Blood Count 11.0 x10^3/uL (4.0-11.0) Red Blood Count 2.96 x10^6/uL (4.30-5.70) Hemoglobin 8.5 g/dL (13.0-17.5) Hematocrit 25.6 % (39.0-53.0) Mean Corpuscular Volume 86 fL (79-100) Mean Corpuscular Hemoglobin 29 pg (25-35) Mean Corpuscular Hemoglobin Concent 33 g/dL (31-37) Red Cell Distribution Width 14.0 % (11.5-14.5) Platelet Count 583 x10^3/uL (140-400) Neutrophils (%) (Auto) 76 % (31-73) Lymphocytes (%) (Auto) 9 % (24-48) Monocytes (%) (Auto) 11 % (0-9) Eosinophils (%) (Auto) 3 % (0-3) Basophils (%) (Auto) 1 % (0-3) Neutrophils # (Auto) 8.4 x10^3uL (1.8-7.7) Lymphocytes # (Auto) 1.0 x10^3/uL (1.0-4.8) Monocytes # (Auto) 1.2 x10^3/uL (0.0-1.1) Eosinophils # (Auto) 0.3 x10^3/uL (0.0-0.7) Basophils # (Auto) 0.1 x10^3/uL (0.0-0.2) Sodium Level 132 mmol/L (136-145) Potassium Level 4.0 mmol/L (3.5-5.1) Chloride Level 98 mmol/L (98-107) Carbon Dioxide Level 29 mmol/L (21-32) Anion Gap 5 (6-14) Blood Urea Nitrogen 19 mg/dL (8-26) Creatinine 1.1 mg/dL (0.7-1.3) Estimated GFR (Cockcroft-Gault) 67.0 Glucose Level 118 mg/dL (70-99) Calcium Level 8.2 mg/dL (8.5-10.1) Magnesium Level 1.8 mg/dL (1.8-2.4) Iron Level 10 ug/dL (65-175) Total Iron Binding Capacity 121 ug/dL (250-450) Iron Saturation 8 % (15-34) Ferritin 458 ng/mL (26-388) Test 06/18/17 07:45 Glucose (Fingerstick) 127 mg/dL (70-99) Microbiology 06/16/17 Blood Culture - Preliminary, Resulted NO GROWTH AFTER 2 DAYS 06/06/17 Anaerobic/Aerobic Culture - Final, Complete 06/06/17 Anaerobic Culture Result 1 (AISSATOU) - Final, Complete 06/06/17 Anaerobic Culture Result 2 (AISSATOU) - Final, Complete 06/06/17 Aerobic Culture - Final, Complete 06/06/17 Aerobic Culture Result 1 (AISSATOU) - Final, Complete 06/06/17 Aerobic Culture Result 2 (AISSATOU) - Final, Complete 06/06/17 Antimicrobic Susceptibility - Final, Complete Medications Current Medications Sodium Chloride 1,000 ml @ 1,000 mls/hr 1X ONCE IV Last administered on 08:22; Start 06/06/17 at 08:30; Stop 06/06/17 at 09:29; Status DC Ondansetron HCl (Zofran) 8 mg 1X ONCE IV Last administered on 06/06/17 08:23 ; Start 06/06/17 at 08:30; Stop 06/06/17 at 08:31; Status DC Morphine Sulfate 5 mg 1X ONCE IV Last administered on 06/06/17 08:29; Start 06/06/17 at 08:30; Stop 06/06/17 at 08:31; Status DC Potassium Chloride (Klor-Con) 40 meq 1X ONCE PO Last administered on 09:31; Start 06/06/17 at 08:30; Stop 06/06/17 at 08:31; Status DC Potassium Chloride/Sodium Chloride 1,000 ml @ 250 mls/hr 1X ONCE IV Last administered on 06/06/17 09:36; Start 06/06/17 at 08:30; Stop 06/06/17 at 12:29 ; Status DC Iohexol (Omnipaque 300 Mg/ml) 60 ml 1X ONCE IV Last administered on 06/06/17 08:51; Start 06/06/17 at 08:45; Stop 06/06/17 at 08:46; Status DC Magnesium Oxide (Magnesium Oxide) 800 mg 1X STAT PO Last administered on 09:31; Start 06/06/17 at 08:37; Stop 06/06/17 at 08:40; Status DC Info (Do NOT chart on this entry -- for MONITORING) 1 each PRN DAILY PRN MC SEE COMMENTS; Start 06/06/17 at 08:45; Stop 06/08/17 at 08:44; Status DC Metronidazole 100 ml @ 100 mls/hr 1X ONCE IV Last administered on 06/06/17 10:00; Start 06/06/17 at 09:30; Stop 06/06/17 at 10:29; Status DC Levofloxacin/ Dextrose (Levaquin Per Pharmacy) 1 each PRN DAILY PRN MC SEE COMMENTS; Start 06/06/17 at 09:30; Stop 06/08/17 at 09:20; Status DC Levofloxacin/ Dextrose 100 ml @ 100 mls/hr 1X ONCE IV ; Start 06/06/17 at 09: 30; Stop 06/06/17 at 10:29; Status DC Levofloxacin/ Dextrose 100 ml @ 100 mls/hr Q24H IV Last administered on 11:36; Start 06/07/17 at 10:00; Stop 06/08/17 at 08:03; Status DC Rocuronium [place] (Zemuron) 100 mg STK-MED ONCE .ROUTE ; Start 06/06/17 at 10: 28; Stop 06/06/17 at 10:29; Status DC Fentanyl Citrate (Fentanyl 5ml Vial) 250 mcg STK-MED ONCE .ROUTE ; Start at 10:28; Stop 06/06/17 at 10:29; Status DC Propofol 20 ml @ As Directed STK-MED ONCE IV ; Start 06/06/17 at 10:32; Stop at 10:33; Status DC Lidocaine HCl (Lidocaine Pf 2% Vial) 5 ml STK-MED ONCE .ROUTE ; Start 06/06/17 at 10:32; Stop 06/06/17 at 10:33; Status DC Ondansetron HCl (Zofran) 4 mg STK-MED ONCE .ROUTE ; Start 06/06/17 at 10:33; Stop 06/06/17 at 10:34; Status DC Dexamethasone Sodium Phosphate (Decadron) 20 mg STK-MED ONCE .ROUTE ; Start 06/06/17 at 10:33; Stop 06/06/17 at 10:34; Status DC Multivitamins 10 ml/Folic Acid 1 mg/Thiamine HCl 100 mg/Ringer's Solution 1, 011.2 ml @ 1,000 mls/ hr 1X ONCE IV ; Start 06/06/17 at 11:30; Stop 06/06/17 at 12:30; Status DC Fentanyl Citrate (Fentanyl 2ml Vial) 25 mcg PRN Q5MIN PRN IV MILD PAIN; Start 06/06/17 at 11:45; Stop 06/07/17 at 11:44; Status DC Fentanyl Citrate (Fentanyl 2ml Vial) 50 mcg PRN Q5MIN PRN IV MODERATE PAIN Last administered on 06/06/17 17:24; Start 06/06/17 at 11:45; Stop 06/07/17 at 11:44; Status DC Morphine Sulfate 1 mg PRN Q10MIN PRN IV SEVERE PAIN Last administered on t 15:38; Start 06/06/17 at 11:45; Stop 06/07/17 at 11:44; Status DC Ringer's Solution 1,000 ml @ 30 mls/hr Q24H IV ; Start 06/06/17 at 11:39; Stop 06/06/17 at 23:38; Status DC Lidocaine HCl (Xylocaine-Mpf 1% Vial) 2 ml 1X PRN PRN ID IV START; Start at 11:45; Stop 06/07/17 at 11:44; Status DC Hydromorphone HCl (Dilaudid) 0.5 mg PRN Q10MIN PRN IV SEV PAIN, Second choice; Start 06/06/17 at 11:45; Stop 06/07/17 at 11:44; Status DC Prochlorperazine Edisylate (Compazine) 5 mg PACU PRN PRN IV NAUSEA, MRX1; Start 06/06/17 at 11:45; Stop 06/07/17 at 11:44; Status DC Phenylephrine HCl (Pedro-Synephrine Inj) 10 mg STK-MED ONCE .ROUTE ; Start at 11:58; Stop 06/06/17 at 11:59; Status DC Sodium Chloride (Sodium Chloride) 50 ml STK-MED ONCE IJ ; Start 06/06/17 at 11: 58; Stop 06/06/17 at 11:59; Status DC Sevoflurane (Ultane) 90 ml STK-MED ONCE IH ; Start 06/06/17 at 13:52; Stop 06/06 at 13:53; Status DC Neostigmine Methylsulfate 5 mg STK-MED ONCE .ROUTE ; Start 06/06/17 at 13:52; Stop 06/06/17 at 13:53; Status DC Glycopyrrolate (Robinul) 1 mg STK-MED ONCE .ROUTE ; Start 06/06/17 at 13:52; Stop 06/06/17 at 13:53; Status DC Fentanyl Citrate (Fentanyl 2ml Vial) 100 mcg STK-MED ONCE .ROUTE ; Start at 14:18; Stop 06/06/17 at 14:19; Status DC Diphenhydramine HCl (Benadryl) 25 mg PRN Q6HRS PRN IV ITCHING; Start 06/06/17 at 14:30 Enoxaparin Sodium (Lovenox 40mg Syringe) 40 mg Q24H SQ Last administered on 15:00; Start 06/06/17 at 15:00; Stop 06/06/17 at 15:41; Status DC Sodium Chloride (Normal Saline Flush) 3 ml QSHIFT PRN IV AFTER MEDS AND BLOOD DRAWS; Start 06/06/17 at 14:30 Potassium Chloride/Sodium Chloride 1,000 ml @ 100 mls/hr Q10H IV Last administered on 06/07/17 20:00; Start 06/06/17 at 15:00; Stop 06/08/17 at 09: 20; Status DC Hydromorphone HCl 30 ml @ 0 mls/hr CONT PRN PRN IV PROTOCOL; Start 06/06/17 at 14:30; Stop 06/06/17 at 17:30; Status DC Ondansetron HCl (Zofran) 4 mg PRN Q6HRS PRN IV NAUESA, 1ST CHOICE; Start at 14:30 Epinephrine (S2 Racepinephrine) 0.5 ml STK-MED ONCE .ROUTE ; Start 06/06/17 at 14:35; Stop 06/06/17 at 14:36; Status DC Propofol 50 ml @ As Directed STK-MED ONCE IV ; Start 06/06/17 at 14:38; Stop at 14:39; Status DC Succinylcholine Chloride (Anectine) 200 mg STK-MED ONCE .ROUTE ; Start 06/06/17 at 14:40; Stop 06/06/17 at 14:41; Status DC Epinephrine (S2 Racepinephrine) 0.5 ml 1X ONCE NEB Last administered on 14:43; Start 06/06/17 at 14:36; Stop 06/06/17 at 14:43; Status DC Midazolam HCl (Versed) 2 mg STK-MED ONCE .ROUTE ; Start 06/06/17 at 14:48; Stop 06/06/17 at 14:49; Status DC Propofol 100 ml @ 0 mls/hr CONT PRN IV SEE I/O RECORD; Start 06/06/17 at 15:15 ; Stop 06/08/17 at 09:20; Status DC Propofol 50 ml @ As Directed STK-MED ONCE IV ; Start 06/06/17 at 15:03; Stop at 15:04; Status DC Dexamethasone Sodium Phosphate (Decadron) 12 mg 1X ONCE IV Last administered on 06/06/17 15:09; Start 06/06/17 at 15:00; Stop 06/06/17 at 15:06; Status DC Dexamethasone Sodium Phosphate (Decadron) 4 mg STK-MED ONCE .ROUTE ; Start 06/06 at 15:05; Stop 06/06/17 at 15:06; Status DC Propofol 50 ml @ 0 mls/hr 1X ONCE IV Last administered on 06/06/17 15:02; Start 06/06/17 at 15:15; Stop 06/06/17 at 15:16; Status DC Succinylcholine Chloride (Anectine) 200 mg 1X ONCE IV ; Start 06/06/17 at 15:15 ; Stop 06/06/17 at 15:16; Status DC Midazolam HCl (Versed) 2 mg 1X ONCE IV ; Start 06/06/17 at 15:15; Stop at 15:16; Status DC Cellulose 1 each STK-MED ONCE .ROUTE Last administered on 06/06/17 13:35; Start 06/06/17 at 14:19; Stop 06/06/17 at 15:20; Status DC Enoxaparin Sodium (Lovenox 40mg Syringe) 40 mg Q24H SQ Last administered on 08:48; Start 06/07/17 at 09:00; Stop 06/12/17 at 10:16; Status DC Metronidazole 100 ml @ 100 mls/hr Q12HR IV Last administered on 06/12/17 21: 32; Start 06/06/17 at 21:00; Stop 06/13/17 at 07:45; Status DC Multivitamins 10 ml/Folic Acid 1 mg/Thiamine HCl 100 mg/Dextrose/ Lactated Ringer's 1,011.2 ml @ 100 mls/ hr DAILY IV Last administered on 06/07/17 09: 21; Start 06/07/17 at 09:00; Stop 06/08/17 at 08:06; Status DC Lorazepam (Ativan) 2 mg PRN Q4HRS PRN IV ANXIETY / AGITATION; Start 06/06/17 at 15:45; Stop 06/12/17 at 10:16; Status DC Famotidine (Pepcid) 20 mg BID IVP Last administered on 06/08/17 11:18; Start 06/06/17 at 21:00; Stop 06/09/17 at 07:53; Status DC Morphine Sulfate 2 mg PRN Q2HR PRN IV PAIN Last administered on 06/10/17 22: 59; Start 06/06/17 at 15:45 Morphine Sulfate 4 mg PRN Q2HR PRN IV PAIN Last administered on 06/11/17 08: 31; Start 06/06/17 at 15:45 Ondansetron HCl (Zofran) 4 mg PRN Q6HRS PRN IV NAUSEA/VOMITING; Start 06/06/17 at 15:45; Stop 06/06/17 at 15:45; Status DC Fentanyl Citrate 30 ml @ 0 mls/hr CONT PRN IV PROTOCOL Last administered on 02:54; Start 06/06/17 at 17:30; Stop 06/07/17 at 10:39; Status DC Midazolam HCl 100 ml @ 0 mls/hr CONT PRN IV SEE I/O RECORD; Start 06/06/17 at 23:00; Stop 06/08/17 at 09:20; Status DC Sodium Chloride 1,000 ml @ 1,000 mls/hr 1X ONCE IV Last administered on 23:34; Start 06/06/17 at 23:00; Stop 06/06/17 at 23:59; Status DC Magnesium Sulfate/ Dextrose 50 ml @ 25 mls/hr 1X ONCE IV Last administered on 06/07/17 09:28; Start 06/07/17 at 08:15; Stop 06/07/17 at 10:14; Status DC Info 1 each PRN DAILY PRN MC SEE COMMENTS Last administered on 06/17/17 11:49 ; Start 06/07/17 at 09:30 Methylprednisolone Sodium Succinate (SOLU-Medrol 125MG VIAL) 50 mg DAILY IV Last administered on 06/12/17 08:47; Start 06/07/17 at 11:00; Stop 06/12/17 at 10:16; Status DC Hydromorphone HCl 30 ml @ 0 mls/hr CONT PRN PRN IV PROTOCOL Last administered on 06/07/17 11:16; Start 06/07/17 at 10:45; Stop 06/09/17 at 08:57; Status DC Sodium Chloride 90 meq/Potassium Chloride 50 meq/ Potassium Phosphate 13.6 mmol/ Magnesium Sulfate 10 meq/ Calcium Gluconate 10 meq/ Multivitamins 10 ml/Chromium / Copper/Manganese/ Seleni/Zn 1 ml/ Total Parenteral Nutrition/Amino Acids/ Dextrose/ Fat Emulsion Intravenous 1,512 ml @ 63 mls/hr TPN CONT IV Last administered on 06/07/17 22:04; Start 06/07/17 at 22:00; Stop 06/08/17 at 21 :59; Status DC Influenza Virus Vaccine Quadrival (Fluarix Quad [id number] Syringe) 0.5 ml ONCE ONCE VAX IM Last administered on 06/08/17 13:23; Start 06/07/17 at 16:15; Stop 06/07/17 at 16:35; Status DC Pneumococcal Polyvalent Vaccine (Do NOT chart on this placeholder) 1 each PRN 1X PRN MC SEE COMMENTS; Start 06/07/17 at 16:45; Status UNV Pneumococcal Polyvalent Vaccine (Pneumovax 23) 0.5 ml ONCE ONCE VAX IM Last administered on 06/08/17 13:25; Start 06/07/17 at 17:00; Stop 06/07/17 at 17 :01; Status DC Ceftriaxone Sodium 1 gm/ Sodium Chloride 50 ml @ 100 mls/hr Q24H IV Last administered on 06/12/17 08:45; Start 06/08/17 at 09:00; Stop 06/13/17 at 07 :45; Status DC Sodium Phosphate 20 mmol/Dextrose 256.6667 ml @ 64.167 m... 1X ONCE IV Last administered on 06/08/17 08:58; Start 06/08/17 at 09:00; Stop 06/08/17 at 12 :59; Status DC Multi-Ingred Cream/Lotion/Oil/ Oint (Artificial Tears Eye Oint) 1 juvenal PRN Q1HR PRN OU DRY EYE; Start 06/08/17 at 09:15 Sodium Chloride 90 meq/Potassium Chloride 40 meq/ Potassium Phosphate 17 mmol/ Magnesium Sulfate 10 meq/Calcium Gluconate 10 meq/ Multivitamins 10 ml/Chromium / Copper/Manganese/ Seleni/Zn 1 ml/ Total Parenteral Nutrition/Amino Acids/ Dextrose/ Fat Emulsion Intravenous 1,512 ml @ 63 mls/hr TPN CONT IV Last administered on 06/08/17 22:42; Start 06/08/17 at 22:00; Stop 06/09/17 at 21 :59; Status DC Diclofenac Sodium (Voltaren) 1 juvenal BID TP Last administered on 06/16/17 09:16 ; Start 06/08/17 at 21:00 Oxycodone/ Acetaminophen (Percocet 10/325) 1 tab PRN Q4HRS PRN PO pain Last administered on 06/15/17 08:48; Start 06/09/17 at 08:00; Stop 06/15/17 at 10 :39; Status DC Magnesium Sulfate/ Dextrose 50 ml @ 25 mls/hr 1X ONCE IV Last administered on 06/09/17 09:31; Start 06/09/17 at 08:00; Stop 06/09/17 at 09:59; Status DC Potassium Phosphate (K-Phos Original) 500 mg BID PO Last administered on 09:22; Start 06/09/17 at 09:00 Lidocaine (Lidoderm) 1 patch DAILY TD Last administered on 06/09/17 09:36; Start 06/09/17 at 09:00; Stop 06/10/17 at 20:50; Status DC Potassium Phosphate 13.6 mmol/Sodium Chloride 104.5333 ml @ 52.267 m... 1X ONCE IV Last administered on 06/09/17 13:51; Start 06/09/17 at 13:30; Stop 06/09/17 at 15:29; Status DC Sodium Chloride 40 meq/Sodium Acetate 50 meq/ Potassium Chloride 40 meq/ Potassium Phosphate 20 mmol/ Magnesium Sulfate 15 meq/Calcium Gluconate 10 meq/ Multivitamins 10 ml/Chromium/ Copper/Manganese/ Seleni/Zn 1 ml/ Total Parenteral Nutrition/Amino Acids/Dextrose/ Fat Emulsion Intravenous 1,512 ml @ 63 mls/hr TPN CONT IV Last administered on 06/09/17 22:11; Start 06/09/17 at 22:00; Stop 06/10/17 at 21:59; Status DC Potassium Chloride (Klor-Con) 40 meq 1X ONCE PO Last administered on 10:40; Start 06/10/17 at 09:30; Stop 06/10/17 at 09:31; Status DC Potassium Chloride (Klor-Con) 20 meq [id number] PO Last administered on 07:57; Start 06/11/17 at 08:00 Magnesium Sulfate/ Dextrose 50 ml @ 25 mls/hr 1X ONCE IV Last administered on 06/10/17 10:38; Start 06/10/17 at 10:00; Stop 06/10/17 at 11:59; Status DC Sodium Chloride 40 meq/Sodium Acetate 50 meq/ Potassium Acetate 60 meq/ Potassium Phosphate 18 mmol/ Magnesium Sulfate 18 meq/Calcium Gluconate 10 meq/ Multivitamins 10 ml/Chromium/ Copper/Manganese/ Seleni/Zn 1 ml/ Total Parenteral Nutrition/Amino Acids/Dextrose/ Fat Emulsion Intravenous 1,512 ml @ 63 mls/hr TPN CONT IV Last administered on 06/10/17 21:43; Start 06/10/17 at 22:00; Stop 06/11/17 at 22:00; Status DC Lidocaine (Lidoderm) 1 patch QHS TD Last administered on 06/10/17 21:37; Start 06/10/17 at 21:00; Stop 06/12/17 at 05:01; Status DC Magnesium Sulfate/ Dextrose 100 ml @ 25 mls/hr 1X ONCE IV Last administered on 06/11/17 11:22; Start 06/11/17 at 09:00; Stop 06/11/17 at 12:59; Status DC Lisinopril (Prinivil) 10 mg DAILY PO Last administered on 06/13/17 08:34; Start 06/11/17 at 13:00; Stop 06/13/17 at 09:19; Status DC Metoprolol Succinate (Toprol Xl) 100 mg DAILY PO Last administered on 09:23; Start 06/11/17 at 13:00 Hydrochlorothiazide (Hydrodiuril) 25 mg DAILY PO Last administered on 09:21; Start 06/11/17 at 13:00 Sodium Chloride 40 meq/Sodium Acetate 50 meq/ Potassium Acetate 60 meq/ Potassium Phosphate 18 mmol/ Magnesium Sulfate 18 meq/Calcium Gluconate 10 meq/ Multivitamins 10 ml/Chromium/ Copper/Manganese/ Seleni/Zn 1 ml/ Total Parenteral Nutrition/Amino Acids/Dextrose/ Fat Emulsion Intravenous 1,512 ml @ 63 mls/hr TPN CONT IV Last administered on 06/11/17 21:43; Start 06/11/17 at 22:00; Stop 06/12/17 at 21:59; Status DC Lidocaine (Lidoderm) 1 patch DAILY TD Last administered on 06/13/17 08:35; Start 06/12/17 at 09:00 Hydralazine HCl (Apresoline Inj) 10 mg PRN Q4HRS PRN IVP ELEVATED BP, SEE COMMENTS; Start 06/12/17 at 09:00 Magnesium Sulfate/ Dextrose 100 ml @ 25 mls/hr 1X ONCE IV Last administered on 06/12/17 09:53; Start 06/12/17 at 09:30; Stop 06/12/17 at 13:29; Status DC Magnesium Oxide (Magnesium Oxide) 400 mg DAILY PO Last administered on 09:21; Start 06/12/17 at 09:30 Lorazepam (Ativan) 1 mg PRN Q4HRS PRN IV ANXIETY / AGITATION; Start 06/12/17 at 10:15 Alprazolam (Xanax) 0.5 mg PRN Q8HRS PRN PO ANXIETY / AGITATION; Start at 10:15 Prednisone (Prednisone) 20 mg DAILY PO Last administered on 06/13/17 08:34; Start 06/13/17 at 09:00; Stop 06/13/17 at 15:06; Status DC Sodium Chloride 60 meq/Sodium Acetate 50 meq/ Potassium Acetate 60 meq/ Potassium Phosphate 18 mmol/ Magnesium Sulfate 27 meq/Calcium Gluconate 10 meq/ Multivitamins 10 ml/Chromium/ Copper/Manganese/ Seleni/Zn 1 ml/ Total Parenteral Nutrition/Amino Acids/Dextrose/ Fat Emulsion Intravenous 1,512 ml @ 63 mls/hr TPN CONT IV Last administered on 06/12/17 21:33; Start 06/12/17 at 22:00; Stop 06/13/17 at 21:59; Status DC Metronidazole (Flagyl) 500 mg Q12HR PO Last administered on 06/15/17 21:48; Start 06/13/17 at 09:00; Stop 06/16/17 at 09:05; Status DC Cefpodoxime Proxetil (Vantin) 200 mg BID PO Last administered on 06/15/17 21: 49; Start 06/13/17 at 09:00; Stop 06/16/17 at 09:05; Status DC Lisinopril (Prinivil) 20 mg DAILY PO Last administered on 06/18/17 09:22; Start 06/14/17 at 09:00 Lisinopril (Prinivil) 10 mg 1X ONCE PO ; Start 06/13/17 at 09:30; Stop at 09:31; Status DC Docusate Sodium (Colace) 100 mg BID PO Last administered on 06/18/17 09:21; Start 06/13/17 at 11:30 Sodium Chloride 60 meq/Sodium Acetate 50 meq/ Potassium Acetate 60 meq/ Potassium Phosphate 18 mmol/ Magnesium Sulfate 27 meq/Calcium Gluconate 10 meq/ Multivitamins 10 ml/Chromium/ Copper/Manganese/ Seleni/Zn 1 ml/ Total Parenteral Nutrition/Amino Acids/Dextrose/ Fat Emulsion Intravenous 1,512 ml @ 63 mls/hr TPN CONT IV Last administered on 06/13/17 22:31; Start 06/13/17 at 22:00; Stop 06/14/17 at 21:59; Status DC Lisinopril (Prinivil) 10 mg 1X ONCE PO Last administered on 06/13/17 16:18; Start 06/13/17 at 14:45; Stop 06/13/17 at 14:46; Status DC Polyethylene Glycol (miraLAX PACKET) 17 gm DAILY PO ; Start 06/14/17 at 09:30; Stop 06/14/17 at 11:47; Status DC Magnesium Hydroxide (Milk Of Magnesia) 2,400 mg PRN DAILY PRN PO CONSTIPATION; Start 06/14/17 at 09:30; Stop 06/14/17 at 11:47; Status DC Magnesium Hydroxide (Milk Of Magnesia) 2,400 mg 1X ONCE PO ; Start 06/14/17 at 09:30; Stop 06/14/17 at 09:31; Status Cancel Magnesium Sulfate/ Dextrose 100 ml @ 25 mls/hr 1X ONCE IV Last administered on 06/14/17 12:03; Start 06/14/17 at 10:00; Stop 06/14/17 at 13:59; Status DC Sodium Chloride 80 meq/Sodium Acetate 50 meq/ Potassium Acetate 60 meq/ Potassium Phosphate 18 mmol/ Magnesium Sulfate 27 meq/Calcium Gluconate 10 meq/ Multivitamins 10 ml/Chromium/ Copper/Manganese/ Seleni/Zn 1 ml/ Total Parenteral Nutrition/Amino Acids/Dextrose/ Fat Emulsion Intravenous 1,512 ml @ 63 mls/hr TPN CONT IV Last administered on 06/14/17 22:34; Start 06/14/17 at 22:00; Stop 06/15/17 at 21:59; Status DC Hydromorphone HCl (Dilaudid) 1 mg 1X ONCE IV Last administered on 06/14/17 15:47; Start 06/14/17 at 13:15; Stop 06/14/17 at 13:16; Status DC Iohexol (Omnipaque 300 Mg/ml) 75 ml 1X ONCE IV Last administered on 13:56; Start 06/14/17 at 13:30; Stop 06/14/17 at 13:31; Status DC Info (Do NOT chart on this entry -- for MONITORING) 1 each PRN DAILY PRN MC SEE COMMENTS; Start 06/14/17 at 13:15; Stop 06/16/17 at 13:14; Status DC Oxycodone/ Acetaminophen (Percocet 10/325) 1 tab Q4HRS PO Last administered on 06/18/17 08:02; Start 06/15/17 at 12:00 Sodium Chloride 80 meq/Sodium Acetate 50 meq/ Potassium Acetate 60 meq/ Potassium Phosphate 18 mmol/ Magnesium Sulfate 27 meq/Calcium Gluconate 10 meq/ Multivitamins 10 ml/Chromium/ Copper/Manganese/ Seleni/Zn 1 ml/ Total Parenteral Nutrition/Amino Acids/Dextrose/ Fat Emulsion Intravenous 1,512 ml @ 63 mls/hr TPN CONT IV Last administered on 06/15/17 22:14; Start 06/15/17 at 22:00; Stop 06/16/17 at 21:59; Status DC Meropenem 1 gm/ Sodium Chloride 100 ml @ 200 mls/hr Q8HRS IV Last administered on 06/18/17 06:00; Start 06/16/17 at 14:00 Vancomycin HCl (Vanco Per Pharmacy) 1 each PRN DAILY PRN MC SEE COMMENTS Last administered on 06/16/17 12:58; Start 06/16/17 at 09:00 Fluconazole/ Sodium Chloride 200 ml @ 100 mls/hr Q24H IV Last administered on 06/18/17 10:11; Start 06/16/17 at 10:00 Vancomycin HCl 2 gm/Dextrose 500 ml @ 250 mls/hr 1X ONCE IV Last administered on 06/16/17 11:57; Start 06/16/17 at 11:00; Stop 06/16/17 at 12 :59; Status DC Magnesium Sulfate/ Dextrose 50 ml @ 25 mls/hr 1X ONCE IV Last administered on 06/16/17 11:56; Start 06/16/17 at 10:30; Stop 06/16/17 at 12:30; Status DC Vancomycin HCl 1.25 gm/Dextrose 250 ml @ 167 mls/hr Q12H IV Last administered on 06/18/17 00:01; Start 06/17/17 at 00:00 Vancomycin HCl 1 each 1X ONCE MC ; Start 06/18/17 at 23:30; Stop 06/18/17 at 23:31 Sodium Chloride 80 meq/Sodium Acetate 50 meq/ Potassium Acetate 60 meq/ Potassium Phosphate 18 mmol/ Magnesium Sulfate 30 meq/Calcium Gluconate 10 meq/ Multivitamins 10 ml/Chromium/ Copper/Manganese/ Seleni/Zn 1 ml/ Total Parenteral Nutrition/Amino Acids/Dextrose/ Fat Emulsion Intravenous 1,512 ml @ 63 mls/hr TPN CONT IV Last administered on 06/16/17 22:03; Start 06/16/17 at 22:00; Stop 06/17/17 at 21:59; Status DC Lactobacillus Acidophilus (Bacid, Jenniffer-Bid) 1 tab BID PO Last administered on 06/18/17 09:21; Start 06/16/17 at 21:00 Magnesium Sulfate/ Dextrose 50 ml @ 25 mls/hr 1X ONCE IV Last administered on 06/17/17 10:00; Start 06/17/17 at 10:00; Stop 06/17/17 at 11:59; Status DC Sodium Chloride 80 meq/Sodium Acetate 50 meq/ Potassium Acetate 60 meq/ Potassium Phosphate 18 mmol/ Magnesium Sulfate 30 meq/Calcium Gluconate 10 meq/ Multivitamins 10 ml/Chromium/ Copper/Manganese/ Seleni/Zn 1 ml/ Total Parenteral Nutrition/Amino Acids/Dextrose/ Fat Emulsion Intravenous 1,512 ml @ 63 mls/hr TPN CONT IV Last administered on 06/17/17t 22:00; Start 06/17/17 at 22:00; Stop 06/18/17 at 21:59 Active Scripts Active Reported [prednisone taper] Metoprolol Succinate ( Xl ) (Metoprolol Succinate) 100 Mg Tab.er.24h 1 Tab PO DAILY Lisinopril 10 Mg Tablet 1 Tab PO DAILY Hydrochlorothiazide Tablet (Hydrochlorothiazide) 50 Mg Tablet 25 Tab PO DAILY Vitals/I & O Vital Sign - Last 24 Hours 06/17/17 06/17/17 06/17/17 06/17/17 11:00 12:21 15:00 16:00 Temp 99.5 101.3 99.5 101.3 Pulse 75 72 Resp 18 18 B/P (MAP) 122/79 (93) 114/65 (81) Pulse Ox 92 95 98 O2 Delivery Room Air Room Air Room Air Room Air 06/17/17 06/17/17 06/17/17 06/17/17 19:00 20:00 20:01 22:47 Temp 97.9 98.1 97.9 98.1 Pulse 61 61 Resp 16 18 17 B/P (MAP) 102/51 (68) 110/44 (66) Pulse Ox 98 95 O2 Delivery Room Air Room Air Room Air Room Air 06/18/17 06/18/17 06/18/17 06/18/17 00:02 03:00 04:12 05:12 Temp 98.1 98.1 Pulse 86 Resp 18 21 18 18 B/P (MAP) 127/58 (81) Pulse Ox 95 O2 Delivery Room Air Room Air Room Air Room Air 06/18/17 06/18/17 06/18/17 06/18/17 07:00 08:02 09:22 09:23 Temp 99.1 99.1 Pulse 64 64 64 Resp 14 18 B/P (MAP) 112/58 (76) 112/58 112/58 Pulse Ox 94 95 O2 Delivery Room Air Room Air O2 Flow Rate 2.0 Intake and Output 06/18/17 06/18/17 06/19/17 15:00 23:00 07:00 Output Total 805 ml Balance -805 ml LARRY LEOS MD Jun 18, 2017 11:01
[2017-06-18] MEDS: TPN PER PHARMACY MC PRN (13:01)
[2017-06-18] MEDS: VANCOMYCIN PER PHARMACY MC PRN (13:05)
--- NOTE | 2017-06-18 14:12 | PDOC ---
PROGRESS NOTES Subjective Subjective awake, comfortable Objective Objective Vital Signs Date Time Temp Pulse Resp B/P (MAP) Pulse Ox O2 Delivery O2 Flow Rate FiO2 06/18/17 13:15 18 98 Room Air 06/18/17 11:00 97.0 68 96/51 (66) 97.0 06/18/17 08:02 2.0 Intake and Output 06/19/17 07:00 Output Total 805 ml Balance -805 ml Output Urine Total 805 ml Physical Exam Abdomen: Soft (ostomy present, no output) Assessment Assessment Problems Medical Problems: (1) Abdominal pain Status: Acute (2) Elevated brain natriuretic peptide (BNP) level Status: Acute (3) Hypomagnesemia Status: Acute (4) Perforated abdominal viscus Status: Acute Plan Plan of Care S/P sigmoid colectomy, await return of bowel function, no new surgical recs Comment Review of Relevant I have reviewed the following items ananda (where applicable) has been applied. Labs Laboratory Tests Test 06/16/17 16:57 06/16/17 20:31 06/17/17 07:00 06/17/17 07:57 Glucose (Fingerstick) 143 mg/dL (70-99) 119 mg/dL (70-99) 127 mg/dL (70-99) White Blood Count 13.6 x10^3/uL (4.0-11.0) Red Blood Count 2.58 x10^6/uL (4.30-5.70) Hemoglobin 7.5 g/dL (13.0-17.5) Hematocrit 22.4 % (39.0-53.0) Mean Corpuscular Volume 87 fL (79-100) Mean Corpuscular Hemoglobin 29 pg (25-35) Mean Corpuscular Hemoglobin Concent 33 g/dL (31-37) Red Cell Distribution Width 13.9 % (11.5-14.5) Platelet Count 554 x10^3/uL (140-400) Neutrophils (%) (Auto) 79 % (31-73) Lymphocytes (%) (Auto) 8 % (24-48) Monocytes (%) (Auto) 9 % (0-9) Eosinophils (%) (Auto) 4 % (0-3) Basophils (%) (Auto) 1 % (0-3) Neutrophils # (Auto) 10.7 x10^3uL (1.8-7.7) Lymphocytes # (Auto) 1.0 x10^3/uL (1.0-4.8) Monocytes # (Auto) 1.3 x10^3/uL (0.0-1.1) Eosinophils # (Auto) 0.5 x10^3/uL (0.0-0.7) Basophils # (Auto) 0.1 x10^3/uL (0.0-0.2) Sodium Level 134 mmol/L (136-145) Potassium Level 3.8 mmol/L (3.5-5.1) Chloride Level 100 mmol/L (98-107) Carbon Dioxide Level 29 mmol/L (21-32) Anion Gap 5 (6-14) Blood Urea Nitrogen 18 mg/dL (8-26) Creatinine 1.0 mg/dL (0.7-1.3) Estimated GFR (Cockcroft-Gault) 74.8 Glucose Level 101 mg/dL (70-99) Calcium Level 8.2 mg/dL (8.5-10.1) Magnesium Level 1.7 mg/dL (1.8-2.4) Test 06/17/17 11:31 06/17/17 17:21 06/17/17 20:56 06/18/17 05:55 Glucose (Fingerstick) 135 mg/dL (70-99) 130 mg/dL (70-99) 111 mg/dL (70-99) White Blood Count 11.0 x10^3/uL (4.0-11.0) Red Blood Count 2.96 x10^6/uL (4.30-5.70) Hemoglobin 8.5 g/dL (13.0-17.5) Hematocrit 25.6 % (39.0-53.0) Mean Corpuscular Volume 86 fL (79-100) Mean Corpuscular Hemoglobin 29 pg (25-35) Mean Corpuscular Hemoglobin Concent 33 g/dL (31-37) Red Cell Distribution Width 14.0 % (11.5-14.5) Platelet Count 583 x10^3/uL (140-400) Neutrophils (%) (Auto) 76 % (31-73) Lymphocytes (%) (Auto) 9 % (24-48) Monocytes (%) (Auto) 11 % (0-9) Eosinophils (%) (Auto) 3 % (0-3) Basophils (%) (Auto) 1 % (0-3) Neutrophils # (Auto) 8.4 x10^3uL (1.8-7.7) Lymphocytes # (Auto) 1.0 x10^3/uL (1.0-4.8) Monocytes # (Auto) 1.2 x10^3/uL (0.0-1.1) Eosinophils # (Auto) 0.3 x10^3/uL (0.0-0.7) Basophils # (Auto) 0.1 x10^3/uL (0.0-0.2) Sodium Level 132 mmol/L (136-145) Potassium Level 4.0 mmol/L (3.5-5.1) Chloride Level 98 mmol/L (98-107) Carbon Dioxide Level 29 mmol/L (21-32) Anion Gap 5 (6-14) Blood Urea Nitrogen 19 mg/dL (8-26) Creatinine 1.1 mg/dL (0.7-1.3) Estimated GFR (Cockcroft-Gault) 67.0 Glucose Level 118 mg/dL (70-99) Calcium Level 8.2 mg/dL (8.5-10.1) Magnesium Level 1.8 mg/dL (1.8-2.4) Iron Level 10 ug/dL (65-175) Total Iron Binding Capacity 121 ug/dL (250-450) Iron Saturation 8 % (15-34) Ferritin 458 ng/mL (26-388) Test 06/18/17 07:45 06/18/17 12:04 Glucose (Fingerstick) 127 mg/dL (70-99) 131 mg/dL (70-99) Laboratory Tests Test 06/17/17 17:21 06/17/17 20:56 06/18/17 05:55 06/18/17 07:45 Glucose (Fingerstick) 130 mg/dL (70-99) 111 mg/dL (70-99) 127 mg/dL (70-99) White Blood Count 11.0 x10^3/uL (4.0-11.0) Red Blood Count 2.96 x10^6/uL (4.30-5.70) Hemoglobin 8.5 g/dL (13.0-17.5) Hematocrit 25.6 % (39.0-53.0) Mean Corpuscular Volume 86 fL (79-100) Mean Corpuscular Hemoglobin 29 pg (25-35) Mean Corpuscular Hemoglobin Concent 33 g/dL (31-37) Red Cell Distribution Width 14.0 % (11.5-14.5) Platelet Count 583 x10^3/uL (140-400) Neutrophils (%) (Auto) 76 % (31-73) Lymphocytes (%) (Auto) 9 % (24-48) Monocytes (%) (Auto) 11 % (0-9) Eosinophils (%) (Auto) 3 % (0-3) Basophils (%) (Auto) 1 % (0-3) Neutrophils # (Auto) 8.4 x10^3uL (1.8-7.7) Lymphocytes # (Auto) 1.0 x10^3/uL (1.0-4.8) Monocytes # (Auto) 1.2 x10^3/uL (0.0-1.1) Eosinophils # (Auto) 0.3 x10^3/uL (0.0-0.7) Basophils # (Auto) 0.1 x10^3/uL (0.0-0.2) Sodium Level 132 mmol/L (136-145) Potassium Level 4.0 mmol/L (3.5-5.1) Chloride Level 98 mmol/L (98-107) Carbon Dioxide Level 29 mmol/L (21-32) Anion Gap 5 (6-14) Blood Urea Nitrogen 19 mg/dL (8-26) Creatinine 1.1 mg/dL (0.7-1.3) Estimated GFR (Cockcroft-Gault) 67.0 Glucose Level 118 mg/dL (70-99) Calcium Level 8.2 mg/dL (8.5-10.1) Magnesium Level 1.8 mg/dL (1.8-2.4) Iron Level 10 ug/dL (65-175) Total Iron Binding Capacity 121 ug/dL (250-450) Iron Saturation 8 % (15-34) Ferritin 458 ng/mL (26-388) Test 06/18/17 12:04 Glucose (Fingerstick) 131 mg/dL (70-99) Microbiology 06/16/17 Blood Culture - Preliminary, Resulted NO GROWTH AFTER 2 DAYS 06/06/17 Anaerobic/Aerobic Culture - Final, Complete 06/06/17 Anaerobic Culture Result 1 (AISSATOU) - Final, Complete 06/06/17 Anaerobic Culture Result 2 (AISSATOU) - Final, Complete 06/06/17 Aerobic Culture - Final, Complete 06/06/17 Aerobic Culture Result 1 (AISSATOU) - Final, Complete 06/06/17 Aerobic Culture Result 2 (AISSATOU) - Final, Complete 06/06/17 Antimicrobic Susceptibility - Final, Complete Medications Current Medications Sodium Chloride 1,000 ml @ 1,000 mls/hr 1X ONCE IV Last administered on 08:22; Start 06/06/17 at 08:30; Stop 06/06/17 at 09:29; Status DC Ondansetron HCl (Zofran) 8 mg 1X ONCE IV Last administered on 06/06/17 08:23 ; Start 06/06/17 at 08:30; Stop 06/06/17 at 08:31; Status DC Morphine Sulfate 5 mg 1X ONCE IV Last administered on 06/06/17 08:29; Start 06/06/17 at 08:30; Stop 06/06/17 at 08:31; Status DC Potassium Chloride (Klor-Con) 40 meq 1X ONCE PO Last administered on 09:31; Start 06/06/17 at 08:30; Stop 06/06/17 at 08:31; Status DC Potassium Chloride/Sodium Chloride 1,000 ml @ 250 mls/hr 1X ONCE IV Last administered on 06/06/17 09:36; Start 06/06/17 at 08:30; Stop 06/06/17 at 12:29 ; Status DC Iohexol (Omnipaque 300 Mg/ml) 60 ml 1X ONCE IV Last administered on 06/06/17 08:51; Start 06/06/17 at 08:45; Stop 06/06/17 at 08:46; Status DC Magnesium Oxide (Magnesium Oxide) 800 mg 1X STAT PO Last administered on 09:31; Start 06/06/17 at 08:37; Stop 06/06/17 at 08:40; Status DC Info (Do NOT chart on this entry -- for MONITORING) 1 each PRN DAILY PRN MC SEE COMMENTS; Start 06/06/17 at 08:45; Stop 06/08/17 at 08:44; Status DC Metronidazole 100 ml @ 100 mls/hr 1X ONCE IV Last administered on 06/06/17t 10:00; Start 06/06/17 at 09:30; Stop 06/06/17 at 10:29; Status DC Levofloxacin/ Dextrose (Levaquin Per Pharmacy) 1 each PRN DAILY PRN MC SEE COMMENTS; Start 06/06/17 at 09:30; Stop 06/08/17 at 09:20; Status DC Levofloxacin/ Dextrose 100 ml @ 100 mls/hr 1X ONCE IV ; Start 06/06/17 at 09: 30; Stop 06/06/17 at 10:29; Status DC Levofloxacin/ Dextrose 100 ml @ 100 mls/hr Q24H IV Last administered on t 11:36; Start 06/07/17 at 10:00; Stop 06/08/17 at 08:03; Status DC Rocuronium Brandon (Zemuron) 100 mg STK-MED ONCE .ROUTE ; Start 06/06/17 at 10: 28; Stop 06/06/17 at 10:29; Status DC Fentanyl Citrate (Fentanyl 5ml Vial) 250 mcg STK-MED ONCE .ROUTE ; Start at 10:28; Stop 06/06/17 at 10:29; Status DC Propofol 20 ml @ As Directed STK-MED ONCE IV ; Start 06/06/17 at 10:32; Stop at 10:33; Status DC Lidocaine HCl (Lidocaine Pf 2% Vial) 5 ml STK-MED ONCE .ROUTE ; Start 06/06/17 at 10:32; Stop 06/06/17 at 10:33; Status DC Ondansetron HCl (Zofran) 4 mg STK-MED ONCE .ROUTE ; Start 06/06/17 at 10:33; Stop 06/06/17 at 10:34; Status DC Dexamethasone Sodium Phosphate (Decadron) 20 mg STK-MED ONCE .ROUTE ; Start 06/06/17 at 10:33; Stop 06/06/17 at 10:34; Status DC Multivitamins 10 ml/Folic Acid 1 mg/Thiamine HCl 100 mg/Ringer's Solution 1, 011.2 ml @ 1,000 mls/ hr 1X ONCE IV ; Start 06/06/17 at 11:30; Stop 06/06/17 at 12:30; Status DC Fentanyl Citrate (Fentanyl 2ml Vial) 25 mcg PRN Q5MIN PRN IV MILD PAIN; Start 06/06/17 at 11:45; Stop 06/07/17 at 11:44; Status DC Fentanyl Citrate (Fentanyl 2ml Vial) 50 mcg PRN Q5MIN PRN IV MODERATE PAIN Last administered on 06/06/17 17:24; Start 06/06/17 at 11:45; Stop 06/07/17 at 11:44; Status DC Morphine Sulfate 1 mg PRN Q10MIN PRN IV SEVERE PAIN Last administered on t 15:38; Start 06/06/17 at 11:45; Stop 06/07/17 at 11:44; Status DC Ringer's Solution 1,000 ml @ 30 mls/hr Q24H IV ; Start 06/06/17 at 11:39; Stop 06/06/17 at 23:38; Status DC Lidocaine HCl (Xylocaine-Mpf 1% Vial) 2 ml 1X PRN PRN ID IV START; Start at 11:45; Stop 06/07/17 at 11:44; Status DC Hydromorphone HCl (Dilaudid) 0.5 mg PRN Q10MIN PRN IV SEV PAIN, Second choice; Start 06/06/17 at 11:45; Stop 06/07/17 at 11:44; Status DC Prochlorperazine Edisylate (Compazine) 5 mg PACU PRN PRN IV NAUSEA, MRX1; Start 06/06/17 at 11:45; Stop 06/07/17 at 11:44; Status DC Phenylephrine HCl (Pedro-Synephrine Inj) 10 mg STK-MED ONCE .ROUTE ; Start at 11:58; Stop 06/06/17 at 11:59; Status DC Sodium Chloride (Sodium Chloride) 50 ml STK-MED ONCE IJ ; Start 06/06/17 at 11: 58; Stop 06/06/17 at 11:59; Status DC Sevoflurane (Ultane) 90 ml STK-MED ONCE IH ; Start 06/06/17 at 13:52; Stop 06/06 at 13:53; Status DC Neostigmine Methylsulfate 5 mg STK-MED ONCE .ROUTE ; Start 06/06/17 at 13:52; Stop 06/06/17 at 13:53; Status DC Glycopyrrolate (Robinul) 1 mg STK-MED ONCE .ROUTE ; Start 06/06/17 at 13:52; Stop 06/06/17 at 13:53; Status DC Fentanyl Citrate (Fentanyl 2ml Vial) 100 mcg STK-MED ONCE .ROUTE ; Start at 14:18; Stop 06/06/17 at 14:19; Status DC Diphenhydramine HCl (Benadryl) 25 mg PRN Q6HRS PRN IV ITCHING; Start 06/06/17 at 14:30 Enoxaparin Sodium (Lovenox 40mg Syringe) 40 mg Q24H SQ Last administered on 15:00; Start 06/06/17 at 15:00; Stop 06/06/17 at 15:41; Status DC Sodium Chloride (Normal Saline Flush) 3 ml QSHIFT PRN IV AFTER MEDS AND BLOOD DRAWS; Start 06/06/17 at 14:30 Potassium Chloride/Sodium Chloride 1,000 ml @ 100 mls/hr Q10H IV Last administered on 06/07/17 20:00; Start 06/06/17 at 15:00; Stop 06/08/17 at 09: 20; Status DC Hydromorphone HCl 30 ml @ 0 mls/hr CONT PRN PRN IV PROTOCOL; Start 06/06/17 at 14:30; Stop 06/06/17 at 17:30; Status DC Ondansetron HCl (Zofran) 4 mg PRN Q6HRS PRN IV NAUESA, 1ST CHOICE; Start at 14:30 Epinephrine (S2 Racepinephrine) 0.5 ml STK-MED ONCE .ROUTE ; Start 06/06/17 at 14:35; Stop 06/06/17 at 14:36; Status DC Propofol 50 ml @ As Directed STK-MED ONCE IV ; Start 06/06/17 at 14:38; Stop at 14:39; Status DC Succinylcholine Chloride (Anectine) 200 mg STK-MED ONCE .ROUTE ; Start 06/06/17 at 14:40; Stop 06/06/17 at 14:41; Status DC Epinephrine (S2 Racepinephrine) 0.5 ml 1X ONCE NEB Last administered on 14:43; Start 06/06/17 at 14:36; Stop 06/06/17 at 14:43; Status DC Midazolam HCl (Versed) 2 mg STK-MED ONCE .ROUTE ; Start 06/06/17 at 14:48; Stop 06/06/17 at 14:49; Status DC Propofol 100 ml @ 0 mls/hr CONT PRN IV SEE I/O RECORD; Start 06/06/17 at 15:15 ; Stop 06/08/17 at 09:20; Status DC Propofol 50 ml @ As Directed STK-MED ONCE IV ; Start 06/06/17 at 15:03; Stop at 15:04; Status DC Dexamethasone Sodium Phosphate (Decadron) 12 mg 1X ONCE IV Last administered on 06/06/17 15:09; Start 06/06/17 at 15:00; Stop 06/06/17 at 15:06; Status DC Dexamethasone Sodium Phosphate (Decadron) 4 mg STK-MED ONCE .ROUTE ; Start 06/06 at 15:05; Stop 06/06/17 at 15:06; Status DC Propofol 50 ml @ 0 mls/hr 1X ONCE IV Last administered on 06/06/17 15:02; Start 06/06/17 at 15:15; Stop 06/06/17 at 15:16; Status DC Succinylcholine Chloride (Anectine) 200 mg 1X ONCE IV ; Start 06/06/17 at 15:15 ; Stop 06/06/17 at 15:16; Status DC Midazolam HCl (Versed) 2 mg 1X ONCE IV ; Start 06/06/17 at 15:15; Stop at 15:16; Status DC Cellulose 1 each STK-MED ONCE .ROUTE Last administered on 06/06/17 13:35; Start 06/06/17 at 14:19; Stop 06/06/17 at 15:20; Status DC Enoxaparin Sodium (Lovenox 40mg Syringe) 40 mg Q24H SQ Last administered on 08:48; Start 06/07/17 at 09:00; Stop 06/12/17 at 10:16; Status DC Metronidazole 100 ml @ 100 mls/hr Q12HR IV Last administered on 06/12/17 21: 32; Start 06/06/17 at 21:00; Stop 06/13/17 at 07:45; Status DC Multivitamins 10 ml/Folic Acid 1 mg/Thiamine HCl 100 mg/Dextrose/ Lactated Ringer's 1,011.2 ml @ 100 mls/ hr DAILY IV Last administered on 06/07/17 09: 21; Start 06/07/17 at 09:00; Stop 06/08/17 at 08:06; Status DC Lorazepam (Ativan) 2 mg PRN Q4HRS PRN IV ANXIETY / AGITATION; Start 06/06/17 at 15:45; Stop 06/12/17 at 10:16; Status DC Famotidine (Pepcid) 20 mg BID IVP Last administered on 06/08/17 11:18; Start 06/06/17 at 21:00; Stop 06/09/17 at 07:53; Status DC Morphine Sulfate 2 mg PRN Q2HR PRN IV PAIN Last administered on 06/10/17 22: 59; Start 06/06/17 at 15:45 Morphine Sulfate 4 mg PRN Q2HR PRN IV PAIN Last administered on 06/11/17 08: 31; Start 06/06/17 at 15:45 Ondansetron HCl (Zofran) 4 mg PRN Q6HRS PRN IV NAUSEA/VOMITING; Start 06/06/17 at 15:45; Stop 06/06/17 at 15:45; Status DC Fentanyl Citrate 30 ml @ 0 mls/hr CONT PRN IV PROTOCOL Last administered on 02:54; Start 06/06/17 at 17:30; Stop 06/07/17 at 10:39; Status DC Midazolam HCl 100 ml @ 0 mls/hr CONT PRN IV SEE I/O RECORD; Start 06/06/17 at 23:00; Stop 06/08/17 at 09:20; Status DC Sodium Chloride 1,000 ml @ 1,000 mls/hr 1X ONCE IV Last administered on 23:34; Start 06/06/17 at 23:00; Stop 06/06/17 at 23:59; Status DC Magnesium Sulfate/ Dextrose 50 ml @ 25 mls/hr 1X ONCE IV Last administered on 06/07/17 09:28; Start 06/07/17 at 08:15; Stop 06/07/17 at 10:14; Status DC Info 1 each PRN DAILY PRN MC SEE COMMENTS Last administered on 06/18/17 13:01 ; Start 06/07/17 at 09:30 Methylprednisolone Sodium Succinate (SOLU-Medrol 125MG VIAL) 50 mg DAILY IV Last administered on 06/12/17 08:47; Start 06/07/17 at 11:00; Stop 06/12/17 at 10:16; Status DC Hydromorphone HCl 30 ml @ 0 mls/hr CONT PRN PRN IV PROTOCOL Last administered on 06/07/17 11:16; Start 06/07/17 at 10:45; Stop 06/09/17 at 08:57; Status DC Sodium Chloride 90 meq/Potassium Chloride 50 meq/ Potassium Phosphate 13.6 mmol/ Magnesium Sulfate 10 meq/ Calcium Gluconate 10 meq/ Multivitamins 10 ml/Chromium / Copper/Manganese/ Seleni/Zn 1 ml/ Total Parenteral Nutrition/Amino Acids/ Dextrose/ Fat Emulsion Intravenous 1,512 ml @ 63 mls/hr TPN CONT IV Last administered on 06/07/17 22:04; Start 06/07/17 at 22:00; Stop 06/08/17 at 21 :59; Status DC Influenza Virus Vaccine Quadrival (Fluarix Quad [id number] Syringe) 0.5 ml ONCE ONCE VAX IM Last administered on 06/08/17 13:23; Start 06/07/17 at 16:15; Stop 06/07/17 at 16:35; Status DC Pneumococcal Polyvalent Vaccine (Do NOT chart on this placeholder) 1 each PRN 1X PRN MC SEE COMMENTS; Start 06/07/17 at 16:45; Status UNV Pneumococcal Polyvalent Vaccine (Pneumovax 23) 0.5 ml ONCE ONCE VAX IM Last administered on 06/08/17 13:25; Start 06/07/17 at 17:00; Stop 06/07/17 at 17 :01; Status DC Ceftriaxone Sodium 1 gm/ Sodium Chloride 50 ml @ 100 mls/hr Q24H IV Last administered on 06/12/17 08:45; Start 06/08/17 at 09:00; Stop 06/13/17 at 07 :45; Status DC Sodium Phosphate 20 mmol/Dextrose 256.6667 ml @ 64.167 m... 1X ONCE IV Last administered on 06/08/17 08:58; Start 06/08/17 at 09:00; Stop 06/08/17 at 12 :59; Status DC Multi-Ingred Cream/Lotion/Oil/ Oint (Artificial Tears Eye Oint) 1 juvenal PRN Q1HR PRN OU DRY EYE; Start 06/08/17 at 09:15 Sodium Chloride 90 meq/Potassium Chloride 40 meq/ Potassium Phosphate 17 mmol/ Magnesium Sulfate 10 meq/Calcium Gluconate 10 meq/ Multivitamins 10 ml/Chromium / Copper/Manganese/ Seleni/Zn 1 ml/ Total Parenteral Nutrition/Amino Acids/ Dextrose/ Fat Emulsion Intravenous 1,512 ml @ 63 mls/hr TPN CONT IV Last administered on 06/08/17 22:42; Start 06/08/17 at 22:00; Stop 06/09/17 at 21 :59; Status DC Diclofenac Sodium (Voltaren) 1 juvenal BID TP Last administered on 06/16/17 09:16 ; Start 06/08/17 at 21:00 Oxycodone/ Acetaminophen (Percocet 10/325) 1 tab PRN Q4HRS PRN PO pain Last administered on 06/15/17 08:48; Start 06/09/17 at 08:00; Stop 06/15/17 at 10 :39; Status DC Magnesium Sulfate/ Dextrose 50 ml @ 25 mls/hr 1X ONCE IV Last administered on 06/09/17 09:31; Start 06/09/17 at 08:00; Stop 06/09/17 at 09:59; Status DC Potassium Phosphate (K-Phos Original) 500 mg BID PO Last administered on 09:22; Start 06/09/17 at 09:00 Lidocaine (Lidoderm) 1 patch DAILY TD Last administered on 06/09/17 09:36; Start 06/09/17 at 09:00; Stop 06/10/17 at 20:50; Status DC Potassium Phosphate 13.6 mmol/Sodium Chloride 104.5333 ml @ 52.267 m... 1X ONCE IV Last administered on 06/09/17 13:51; Start 06/09/17 at 13:30; Stop 06/09/17 at 15:29; Status DC Sodium Chloride 40 meq/Sodium Acetate 50 meq/ Potassium Chloride 40 meq/ Potassium Phosphate 20 mmol/ Magnesium Sulfate 15 meq/Calcium Gluconate 10 meq/ Multivitamins 10 ml/Chromium/ Copper/Manganese/ Seleni/Zn 1 ml/ Total Parenteral Nutrition/Amino Acids/Dextrose/ Fat Emulsion Intravenous 1,512 ml @ 63 mls/hr TPN CONT IV Last administered on 06/09/17 22:11; Start 06/09/17 at 22:00; Stop 06/10/17 at 21:59; Status DC Potassium Chloride (Klor-Con) 40 meq 1X ONCE PO Last administered on 10:40; Start 06/10/17 at 09:30; Stop 06/10/17 at 09:31; Status DC Potassium Chloride (Klor-Con) 20 meq DAILYWBKFT PO Last administered on 07:57; Start 06/11/17 at 08:00 Magnesium Sulfate/ Dextrose 50 ml @ 25 mls/hr 1X ONCE IV Last administered on 06/10/17 10:38; Start 06/10/17 at 10:00; Stop 06/10/17 at 11:59; Status DC Sodium Chloride 40 meq/Sodium Acetate 50 meq/ Potassium Acetate 60 meq/ Potassium Phosphate 18 mmol/ Magnesium Sulfate 18 meq/Calcium Gluconate 10 meq/ Multivitamins 10 ml/Chromium/ Copper/Manganese/ Seleni/Zn 1 ml/ Total Parenteral Nutrition/Amino Acids/Dextrose/ Fat Emulsion Intravenous 1,512 ml @ 63 mls/hr TPN CONT IV Last administered on 06/10/17 21:43; Start 06/10/17 at 22:00; Stop 06/11/17 at 22:00; Status DC Lidocaine (Lidoderm) 1 patch QHS TD Last administered on 06/10/17 21:37; Start 06/10/17 at 21:00; Stop 06/12/17 at 05:01; Status DC Magnesium Sulfate/ Dextrose 100 ml @ 25 mls/hr 1X ONCE IV Last administered on 06/11/17 11:22; Start 06/11/17 at 09:00; Stop 06/11/17 at 12:59; Status DC Lisinopril (Prinivil) 10 mg DAILY PO Last administered on 06/13/17 08:34; Start 06/11/17 at 13:00; Stop 06/13/17 at 09:19; Status DC Metoprolol Succinate (Toprol Xl) 100 mg DAILY PO Last administered on 09:23; Start 06/11/17 at 13:00 Hydrochlorothiazide (Hydrodiuril) 25 mg DAILY PO Last administered on 09:21; Start 06/11/17 at 13:00 Sodium Chloride 40 meq/Sodium Acetate 50 meq/ Potassium Acetate 60 meq/ Potassium Phosphate 18 mmol/ Magnesium Sulfate 18 meq/Calcium Gluconate 10 meq/ Multivitamins 10 ml/Chromium/ Copper/Manganese/ Seleni/Zn 1 ml/ Total Parenteral Nutrition/Amino Acids/Dextrose/ Fat Emulsion Intravenous 1,512 ml @ 63 mls/hr TPN CONT IV Last administered on 06/11/17 21:43; Start 06/11/17 at 22:00; Stop 06/12/17 at 21:59; Status DC Lidocaine (Lidoderm) 1 patch DAILY TD Last administered on 06/13/17 08:35; Start 06/12/17 at 09:00 Hydralazine HCl (Apresoline Inj) 10 mg PRN Q4HRS PRN IVP ELEVATED BP, SEE COMMENTS; Start 06/12/17 at 09:00 Magnesium Sulfate/ Dextrose 100 ml @ 25 mls/hr 1X ONCE IV Last administered on 06/12/17 09:53; Start 06/12/17 at 09:30; Stop 06/12/17 at 13:29; Status DC Magnesium Oxide (Magnesium Oxide) 400 mg DAILY PO Last administered on 09:21; Start 06/12/17 at 09:30 Lorazepam (Ativan) 1 mg PRN Q4HRS PRN IV ANXIETY / AGITATION; Start 06/12/17 at 10:15 Alprazolam (Xanax) 0.5 mg PRN Q8HRS PRN PO ANXIETY / AGITATION; Start at 10:15 Prednisone (Prednisone) 20 mg DAILY PO Last administered on 06/13/17 08:34; Start 06/13/17 at 09:00; Stop 06/13/17 at 15:06; Status DC Sodium Chloride 60 meq/Sodium Acetate 50 meq/ Potassium Acetate 60 meq/ Potassium Phosphate 18 mmol/ Magnesium Sulfate 27 meq/Calcium Gluconate 10 meq/ Multivitamins 10 ml/Chromium/ Copper/Manganese/ Seleni/Zn 1 ml/ Total Parenteral Nutrition/Amino Acids/Dextrose/ Fat Emulsion Intravenous 1,512 ml @ 63 mls/hr TPN CONT IV Last administered on 06/12/17 21:33; Start 06/12/17 at 22:00; Stop 06/13/17 at 21:59; Status DC Metronidazole (Flagyl) 500 mg Q12HR PO Last administered on 06/15/17 21:48; Start 06/13/17 at 09:00; Stop 06/16/17 at 09:05; Status DC Cefpodoxime Proxetil (Vantin) 200 mg BID PO Last administered on 06/15/17 21: 49; Start 06/13/17 at 09:00; Stop 06/16/17 at 09:05; Status DC Lisinopril (Prinivil) 20 mg DAILY PO Last administered on 06/18/17 09:22; Start 06/14/17 at 09:00 Lisinopril (Prinivil) 10 mg 1X ONCE PO ; Start 06/13/17 at 09:30; Stop at 09:31; Status DC Docusate Sodium (Colace) 100 mg BID PO Last administered on 06/18/17 09:21; Start 06/13/17 at 11:30 Sodium Chloride 60 meq/Sodium Acetate 50 meq/ Potassium Acetate 60 meq/ Potassium Phosphate 18 mmol/ Magnesium Sulfate 27 meq/Calcium Gluconate 10 meq/ Multivitamins 10 ml/Chromium/ Copper/Manganese/ Seleni/Zn 1 ml/ Total Parenteral Nutrition/Amino Acids/Dextrose/ Fat Emulsion Intravenous 1,512 ml @ 63 mls/hr TPN CONT IV Last administered on 06/13/17 22:31; Start 06/13/17 at 22:00; Stop 06/14/17 at 21:59; Status DC Lisinopril (Prinivil) 10 mg 1X ONCE PO Last administered on 06/13/17 16:18; Start 06/13/17 at 14:45; Stop 06/13/17 at 14:46; Status DC Polyethylene Glycol (miraLAX PACKET) 17 gm DAILY PO ; Start 06/14/17 at 09:30; Stop 06/14/17 at 11:47; Status DC Magnesium Hydroxide (Milk Of Magnesia) 2,400 mg PRN DAILY PRN PO CONSTIPATION; Start 06/14/17 at 09:30; Stop 06/14/17 at 11:47; Status DC Magnesium Hydroxide (Milk Of Magnesia) 2,400 mg 1X ONCE PO ; Start 06/14/17 at 09:30; Stop 06/14/17 at 09:31; Status Cancel Magnesium Sulfate/ Dextrose 100 ml @ 25 mls/hr 1X ONCE IV Last administered on 06/14/17 12:03; Start 06/14/17 at 10:00; Stop 06/14/17 at 13:59; Status DC Sodium Chloride 80 meq/Sodium Acetate 50 meq/ Potassium Acetate 60 meq/ Potassium Phosphate 18 mmol/ Magnesium Sulfate 27 meq/Calcium Gluconate 10 meq/ Multivitamins 10 ml/Chromium/ Copper/Manganese/ Seleni/Zn 1 ml/ Total Parenteral Nutrition/Amino Acids/Dextrose/ Fat Emulsion Intravenous 1,512 ml @ 63 mls/hr TPN CONT IV Last administered on 06/14/17 22:34; Start 06/14/17 at 22:00; Stop 06/15/17 at 21:59; Status DC Hydromorphone HCl (Dilaudid) 1 mg 1X ONCE IV Last administered on 06/14/17 15:47; Start 06/14/17 at 13:15; Stop 06/14/17 at 13:16; Status DC Iohexol (Omnipaque 300 Mg/ml) 75 ml 1X ONCE IV Last administered on 13:56; Start 06/14/17 at 13:30; Stop 06/14/17 at 13:31; Status DC Info (Do NOT chart on this entry -- for MONITORING) 1 each PRN DAILY PRN MC SEE COMMENTS; Start 06/14/17 at 13:15; Stop 06/16/17 at 13:14; Status DC Oxycodone/ Acetaminophen (Percocet 10/325) 1 tab Q4HRS PO Last administered on 06/18/17t 12:15; Start 06/15/17 at 12:00 Sodium Chloride 80 meq/Sodium Acetate 50 meq/ Potassium Acetate 60 meq/ Potassium Phosphate 18 mmol/ Magnesium Sulfate 27 meq/Calcium Gluconate 10 meq/ Multivitamins 10 ml/Chromium/ Copper/Manganese/ Seleni/Zn 1 ml/ Total Parenteral Nutrition/Amino Acids/Dextrose/ Fat Emulsion Intravenous 1,512 ml @ 63 mls/hr TPN CONT IV Last administered on 06/15/17 22:14; Start 06/15/17 at 22:00; Stop 06/16/17 at 21:59; Status DC Meropenem 1 gm/ Sodium Chloride 100 ml @ 200 mls/hr Q8HRS IV Last administered on 06/18/17 06:00; Start 06/16/17 at 14:00 Vancomycin HCl (Vanco Per Pharmacy) 1 each PRN DAILY PRN MC SEE COMMENTS Last administered on 06/18/17 13:05; Start 06/16/17 at 09:00 Fluconazole/ Sodium Chloride 200 ml @ 100 mls/hr Q24H IV Last administered on 06/18/17 10:11; Start 06/16/17 at 10:00 Vancomycin HCl 2 gm/Dextrose 500 ml @ 250 mls/hr 1X ONCE IV Last administered on 06/16/17 11:57; Start 06/16/17 at 11:00; Stop 06/16/17 at 12 :59; Status DC Magnesium Sulfate/ Dextrose 50 ml @ 25 mls/hr 1X ONCE IV Last administered on 06/16/17 11:56; Start 06/16/17 at 10:30; Stop 06/16/17 at 12:30; Status DC Vancomycin HCl 1.25 gm/Dextrose 250 ml @ 167 mls/hr Q12H IV Last administered on 06/18/17 12:20; Start 06/17/17 at 00:00 Vancomycin HCl 1 each 1X ONCE [facility] ; Start 06/18/17 at 23:30; Stop 06/18/17 at 23:31 Sodium Chloride 80 meq/Sodium Acetate 50 meq/ Potassium Acetate 60 meq/ Potassium Phosphate 18 mmol/ Magnesium Sulfate 30 meq/Calcium Gluconate 10 meq/ Multivitamins 10 ml/Chromium/ Copper/Manganese/ Seleni/Zn 1 ml/ Total Parenteral Nutrition/Amino Acids/Dextrose/ Fat Emulsion Intravenous 1,512 ml @ 63 mls/hr TPN CONT IV Last administered on 06/16/17 22:03; Start 06/16/17 at 22:00; Stop 06/17/17 at 21:59; Status DC Lactobacillus Acidophilus (Bacid, Jenniffer-Bid) 1 tab BID PO Last administered on 06/18/17 09:21; Start 06/16/17 at 21:00 Magnesium Sulfate/ Dextrose 50 ml @ 25 mls/hr 1X ONCE IV Last administered on 06/17/17 10:00; Start 06/17/17 at 10:00; Stop 06/17/17 at 11:59; Status DC Sodium Chloride 80 meq/Sodium Acetate 50 meq/ Potassium Acetate 60 meq/ Potassium Phosphate 18 mmol/ Magnesium Sulfate 30 meq/Calcium Gluconate 10 meq/ Multivitamins 10 ml/Chromium/ Copper/Manganese/ Seleni/Zn 1 ml/ Total Parenteral Nutrition/Amino Acids/Dextrose/ Fat Emulsion Intravenous 1,512 ml @ 63 mls/hr TPN CONT IV Last administered on 06/17/17 22:00; Start 06/17/17 at 22:00; Stop 06/18/17 at 21:59 Sodium Chloride 95 meq/Sodium Acetate 50 meq/ Potassium Acetate 60 meq/ Potassium Phosphate 18 mmol/ Magnesium Sulfate 30 meq/Calcium Gluconate 10 meq/ Multivitamins 10 ml/Chromium/ Copper/Manganese/ Seleni/Zn 1 ml/ Total Parenteral Nutrition/Amino Acids/Dextrose/ Fat Emulsion Intravenous 1,512 ml @ 63 mls/hr TPN CONT IV ; Start 06/18/17 at 22:00; Stop 06/19/17 at 21:59 Active Scripts Active Reported [prednisone taper] Metoprolol Succinate ( Xl ) (Metoprolol Succinate) 100 Mg Tab.er.24h 1 Tab PO DAILY Lisinopril 10 Mg Tablet 1 Tab PO DAILY Hydrochlorothiazide Tablet (Hydrochlorothiazide) 50 Mg Tablet 25 Tab PO DAILY Vitals/I & O Vital Sign - Last 24 Hours 06/17/17 06/17/17 06/17/17 06/17/17 15:00 16:00 19:00 20:00 Temp 101.3 97.9 101.3 97.9 Pulse 72 61 Resp 18 16 B/P (MAP) 114/65 (81) 102/51 (68) Pulse Ox 98 98 O2 Delivery Room Air Room Air Room Air Room Air 06/17/17 06/17/17 06/18/17 06/18/17 20:01 22:47 00:02 03:00 Temp 98.1 98.1 98.1 98.1 Pulse 61 86 Resp 18 17 18 21 B/P (MAP) 110/44 (66) 127/58 (81) Pulse Ox 95 95 O2 Delivery Room Air Room Air Room Air Room Air 06/18/17 06/18/17 06/18/17 06/18/17 04:12 07:00 07:55 08:02 Temp 99.1 99.1 Pulse 64 Resp 18 14 18 B/P (MAP) 112/58 (76) Pulse Ox 94 95 O2 Delivery Room Air Room Air Room Air Room Air O2 Flow Rate 2.0 06/18/17 06/18/17 06/18/17 06/18/17 09:22 09:23 11:00 12:15 Temp 97.0 97.0 Pulse 64 64 68 Resp 16 18 B/P (MAP) 112/58 112/58 96/51 (66) Pulse Ox 98 98 O2 Delivery Room Air Room Air 06/18/17 13:15 Resp 18 Pulse Ox 98 O2 Delivery Room Air Intake and Output 06/18/17 06/18/17 06/19/17 15:00 23:00 07:00 Output Total 805 ml Balance -805 ml TROY PASTOR MD Jun 18, 2017 14:12
[2017-06-18 15:00] VITALS: BP 121/60
[2017-06-18 19:00] VITALS: BP 107/71
[2017-06-18] MEDS ORDERED: DEXTROSE 70% IV SCH ×11 (22:00)
[2017-06-18] MEDS ORDERED: TOTAL PARENTERAL NUTRITION IV SCH ×11 (22:00)
[2017-06-18] MEDS ORDERED: [UNRECOGNIZED DRUG - OTHER] IV SCH ×11 (22:00)
[2017-06-18] MEDS ORDERED: AMINO ACIDS IV SCH ×11 (22:00)
[2017-06-18 23:00] VITALS: BP 134/69
[2017-06-19] VITALS (7 sets, daily range): BP systolic 112–139; BP diastolic 59–87
[2017-06-19] MEDS: VANCOMYCIN PER PHARMACY MC PRN ×2 (00:24→13:33)
[2017-06-19] MEDS: oxyCODONE/APAP 10/325 1 TAB TABLET PO SCH ×7 (00:25→22:18)
[2017-06-19] MEDS: VANCOMYCIN 1.25 GM in IV DEXTROSE 5% 250 ML IV SCH ×2 (00:26→12:32)
[2017-06-19 04:56] LABS: BASO # 0.1 x10^3/uL (0.0-0.2); BASO % 1 % (0-3); EOS % 4 % (0-3); HEMATOCRIT 22.6 % (39.0-53.0); HEMOGLOBIN 7.7 g/dL (13.0-17.5); LYMPH # 1.4 x10^3/uL (1.0-4.8); LYMPH % 15 % (24-48); MEAN CORPUSCULAR HEMOGLOBIN 29 pg (25-35); MEAN CORPUSCULAR HGB CONC 34 g/dL (31-37); MEAN CORPUSCULAR VOLUME 86 fL (79-100); MONO % 15 % (0-9); NEUT % 66 % (31-73); PLATELET COUNT 589 x10^3/uL (140-400); RED BLOOD COUNT 2.64 x10^6/uL (4.30-5.70); WHITE BLOOD COUNT 9.7 x10^3/uL (4.0-11.0)
[2017-06-19 05:19] LABS: CALCIUM 8.4 mg/dL (8.5-10.1); GFR 74.8; POTASSIUM 4.2 mmol/L (3.5-5.1)
[2017-06-19] MEDS: MEROPENEM 1 GM in IV NORMAL SALINE 100ML 100 ML IV SCH ×3 (05:54→22:18)
[2017-06-19] MEDS: POTASSIUM CHLORIDE 20 MEQ TABLET.ER. PO SCH (07:59)
[2017-06-19] MEDS: DICLOFENAC SODIUM 1% TOPICAL GEL 100GM TUBE. TP SCH ×2 (09:00→21:00)
[2017-06-19] MEDS: LIDOCAINE (700MG/PATCH) PATCH. TD SCH (09:00)
[2017-06-19] MEDS: MAGNESIUM OXIDE 400 MG TABLET PO SCH (09:39)
[2017-06-19] MEDS: hydroCHLOROthiazide 25 MG TABLET PO SCH (09:40)
[2017-06-19] MEDS: LACTOBACILLUS ACIDOPH & BULGAR 1 TABLET. PO SCH (09:40)
[2017-06-19] MEDS: METOPROLOL SUCC 24HR ER 100 MG TAB.ER.24H. PO SCH (09:40)
[2017-06-19] MEDS: DOCUSATE SODIUM 100 MG CAPSULE. PO SCH ×2 (09:40→21:09)
[2017-06-19] MEDS: POTASSIUM PHOSPHATE,MONOBASIC 500 MG TABLET. PO SCH ×2 (09:40→21:09)
[2017-06-19] MEDS: LISINOPRIL 20 MG TABLET PO SCH (09:41)
[2017-06-19] MEDS: FLUCONAZOLE 400MG/200ML PREMIX 200 ML IV SCH (10:22)
--- NOTE | 2017-06-19 10:46 | PDOC ---
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 peritonitis - sepsis with peritonitis Persistent hypomagnesemia HTN HLD NEW onset afib with RVR, sinus now hypokalemia, corrected moderate EtOH intake history of 3 drinks per day DESTINEE, dehydration, vasomotor mild malnutrition Hypophosphatemia, related to malnutrition corrected Acute on chronic sciatica OCD, but no home meds listed History of Present Illness History of Present Illness much better today, been OOB, no complaint, some normal stool out of ostomy meropenum, vanco with ID on 06/16 on full liquid diet w/ TPN pain control, now 11/05, with sched oxy replete Mag PT and OT to continue, he feels much improved today Vitals Vitals Vital Signs Date Time Temp Pulse Resp B/P (MAP) Pulse Ox O2 Delivery O2 Flow Rate FiO2 06/19/17 09:41 70 113/59 06/19/17 09:02 18 94 Room Air 06/19/17 03:00 98.8 98.8 06/18/17 08:02 2.0 Physical Exam Physical Exam General: Alert, Oriented X3, Cooperative, No acute distress Heart: Regular rate, Normal S1, Normal S2, No murmurs Lungs: Clear Abdomen: Soft (ostomy present, no output) Extremities: No edema, Normal pulses Skin: No rashes, No breakdown Labs LABS Laboratory Tests Test 06/18/17 12:04 06/18/17 16:32 06/18/17 20:44 06/18/17 23:20 Glucose (Fingerstick) 131 mg/dL (70-99) 105 mg/dL (70-99) 144 mg/dL (70-99) Vancomycin Level Trough 17.5 mcg/mL (10.0-20.0) Vancomycin Last Dose Date Vancomycin Last Dose Time Test 06/19/17 04:35 White Blood Count 9.7 x10^3/uL (4.0-11.0) Red Blood Count 2.64 x10^6/uL (4.30-5.70) Hemoglobin 7.7 g/dL (13.0-17.5) Hematocrit 22.6 % (39.0-53.0) Mean Corpuscular Volume 86 fL (79-100) Mean Corpuscular Hemoglobin 29 pg (25-35) Mean Corpuscular Hemoglobin Concent 34 g/dL (31-37) Red Cell Distribution Width 14.0 % (11.5-14.5) Platelet Count 589 x10^3/uL (140-400) Neutrophils (%) (Auto) 66 % (31-73) Lymphocytes (%) (Auto) 15 % (24-48) Monocytes (%) (Auto) 15 % (0-9) Eosinophils (%) (Auto) 4 % (0-3) Basophils (%) (Auto) 1 % (0-3) Neutrophils # (Auto) 6.4 x10^3uL (1.8-7.7) Lymphocytes # (Auto) 1.4 x10^3/uL (1.0-4.8) Monocytes # (Auto) 1.5 x10^3/uL (0.0-1.1) Eosinophils # (Auto) 0.4 x10^3/uL (0.0-0.7) Basophils # (Auto) 0.1 x10^3/uL (0.0-0.2) Sodium Level 134 mmol/L (136-145) Potassium Level 4.2 mmol/L (3.5-5.1) Chloride Level 100 mmol/L (98-107) Carbon Dioxide Level 30 mmol/L (21-32) Anion Gap 4 (6-14) Blood Urea Nitrogen 16 mg/dL (8-26) Creatinine 1.0 mg/dL (0.7-1.3) Estimated GFR (Cockcroft-Gault) 74.8 Glucose Level 87 mg/dL (70-99) Calcium Level 8.4 mg/dL (8.5-10.1) Review of Systems Review of Systems some abd pain, 3/10 strength improving Assessment and Plan Assessmemt and Plan Problems Medical Problems: (1) Abdominal pain Status: Acute (2) Elevated brain natriuretic peptide (BNP) level Status: Acute (3) Hypomagnesemia Status: Acute (4) Perforated abdominal viscus Status: Acute Problems: Comment Review of Relevant I have reviewed the following items ananda (where applicable) has been applied. Labs Laboratory Tests Test 06/17/17 11:31 06/17/17 17:21 06/17/17 20:56 06/18/17 05:55 Glucose (Fingerstick) 135 mg/dL (70-99) 130 mg/dL (70-99) 111 mg/dL (70-99) White Blood Count 11.0 x10^3/uL (4.0-11.0) Red Blood Count 2.96 x10^6/uL (4.30-5.70) Hemoglobin 8.5 g/dL (13.0-17.5) Hematocrit 25.6 % (39.0-53.0) Mean Corpuscular Volume 86 fL (79-100) Mean Corpuscular Hemoglobin 29 pg (25-35) Mean Corpuscular Hemoglobin Concent 33 g/dL (31-37) Red Cell Distribution Width 14.0 % (11.5-14.5) Platelet Count 583 x10^3/uL (140-400) Neutrophils (%) (Auto) 76 % (31-73) Lymphocytes (%) (Auto) 9 % (24-48) Monocytes (%) (Auto) 11 % (0-9) Eosinophils (%) (Auto) 3 % (0-3) Basophils (%) (Auto) 1 % (0-3) Neutrophils # (Auto) 8.4 x10^3uL (1.8-7.7) Lymphocytes # (Auto) 1.0 x10^3/uL (1.0-4.8) Monocytes # (Auto) 1.2 x10^3/uL (0.0-1.1) Eosinophils # (Auto) 0.3 x10^3/uL (0.0-0.7) Basophils # (Auto) 0.1 x10^3/uL (0.0-0.2) Sodium Level 132 mmol/L (136-145) Potassium Level 4.0 mmol/L (3.5-5.1) Chloride Level 98 mmol/L (98-107) Carbon Dioxide Level 29 mmol/L (21-32) Anion Gap 5 (6-14) Blood Urea Nitrogen 19 mg/dL (8-26) Creatinine 1.1 mg/dL (0.7-1.3) Estimated GFR (Cockcroft-Gault) 67.0 Glucose Level 118 mg/dL (70-99) Calcium Level 8.2 mg/dL (8.5-10.1) Magnesium Level 1.8 mg/dL (1.8-2.4) Iron Level 10 ug/dL (65-175) Total Iron Binding Capacity 121 ug/dL (250-450) Iron Saturation 8 % (15-34) Ferritin 458 ng/mL (26-388) Test 06/18/17 07:45 06/18/17 12:04 06/18/17 16:32 06/18/17 20:44 Glucose (Fingerstick) 127 mg/dL (70-99) 131 mg/dL (70-99) 105 mg/dL (70-99) 144 mg/dL (70-99) Test 06/18/17 23:20 06/19/17 04:35 Vancomycin Level Trough 17.5 mcg/mL (10.0-20.0) Vancomycin Last Dose Date Vancomycin Last Dose Time White Blood Count 9.7 x10^3/uL (4.0-11.0) Red Blood Count 2.64 x10^6/uL (4.30-5.70) Hemoglobin 7.7 g/dL (13.0-17.5) Hematocrit 22.6 % (39.0-53.0) Mean Corpuscular Volume 86 fL (79-100) Mean Corpuscular Hemoglobin 29 pg (25-35) Mean Corpuscular Hemoglobin Concent 34 g/dL (31-37) Red Cell Distribution Width 14.0 % (11.5-14.5) Platelet Count 589 x10^3/uL (140-400) Neutrophils (%) (Auto) 66 % (31-73) Lymphocytes (%) (Auto) 15 % (24-48) Monocytes (%) (Auto) 15 % (0-9) Eosinophils (%) (Auto) 4 % (0-3) Basophils (%) (Auto) 1 % (0-3) Neutrophils # (Auto) 6.4 x10^3uL (1.8-7.7) Lymphocytes # (Auto) 1.4 x10^3/uL (1.0-4.8) Monocytes # (Auto) 1.5 x10^3/uL (0.0-1.1) Eosinophils # (Auto) 0.4 x10^3/uL (0.0-0.7) Basophils # (Auto) 0.1 x10^3/uL (0.0-0.2) Sodium Level 134 mmol/L (136-145) Potassium Level 4.2 mmol/L (3.5-5.1) Chloride Level 100 mmol/L (98-107) Carbon Dioxide Level 30 mmol/L (21-32) Anion Gap 4 (6-14) Blood Urea Nitrogen 16 mg/dL (8-26) Creatinine 1.0 mg/dL (0.7-1.3) Estimated GFR (Cockcroft-Gault) 74.8 Glucose Level 87 mg/dL (70-99) Calcium Level 8.4 mg/dL (8.5-10.1) Laboratory Tests Test 06/18/17 12:04 06/18/17 16:32 06/18/17 20:44 06/18/17 23:20 Glucose (Fingerstick) 131 mg/dL (70-99) 105 mg/dL (70-99) 144 mg/dL (70-99) Vancomycin Level Trough 17.5 mcg/mL (10.0-20.0) Vancomycin Last Dose Date Vancomycin Last Dose Time Test 06/19/17 04:35 White Blood Count 9.7 x10^3/uL (4.0-11.0) Red Blood Count 2.64 x10^6/uL (4.30-5.70) Hemoglobin 7.7 g/dL (13.0-17.5) Hematocrit 22.6 % (39.0-53.0) Mean Corpuscular Volume 86 fL (79-100) Mean Corpuscular Hemoglobin 29 pg (25-35) Mean Corpuscular Hemoglobin Concent 34 g/dL (31-37) Red Cell Distribution Width 14.0 % (11.5-14.5) Platelet Count 589 x10^3/uL (140-400) Neutrophils (%) (Auto) 66 % (31-73) Lymphocytes (%) (Auto) 15 % (24-48) Monocytes (%) (Auto) 15 % (0-9) Eosinophils (%) (Auto) 4 % (0-3) Basophils (%) (Auto) 1 % (0-3) Neutrophils # (Auto) 6.4 x10^3uL (1.8-7.7) Lymphocytes # (Auto) 1.4 x10^3/uL (1.0-4.8) Monocytes # (Auto) 1.5 x10^3/uL (0.0-1.1) Eosinophils # (Auto) 0.4 x10^3/uL (0.0-0.7) Basophils # (Auto) 0.1 x10^3/uL (0.0-0.2) Sodium Level 134 mmol/L (136-145) Potassium Level 4.2 mmol/L (3.5-5.1) Chloride Level 100 mmol/L (98-107) Carbon Dioxide Level 30 mmol/L (21-32) Anion Gap 4 (6-14) Blood Urea Nitrogen 16 mg/dL (8-26) Creatinine 1.0 mg/dL (0.7-1.3) Estimated GFR (Cockcroft-Gault) 74.8 Glucose Level 87 mg/dL (70-99) Calcium Level 8.4 mg/dL (8.5-10.1) Microbiology 06/16/17 Blood Culture - Preliminary, Resulted NO GROWTH AFTER 2 DAYS 06/06/17 Anaerobic/Aerobic Culture - Final, Complete 06/06/17 Anaerobic Culture Result 1 (AISSATOU) - Final, Complete 06/06/17 Anaerobic Culture Result 2 (AISSATOU) - Final, Complete 06/06/17 Aerobic Culture - Final, Complete 06/06/17 Aerobic Culture Result 1 (AISSATOU) - Final, Complete 06/06/17 Aerobic Culture Result 2 (AISSATOU) - Final, Complete 06/06/17 Antimicrobic Susceptibility - Final, Complete Medications Current Medications Sodium Chloride 1,000 ml @ 1,000 mls/hr 1X ONCE IV Last administered on 08:22; Start 06/06/17 at 08:30; Stop 06/06/17 at 09:29; Status DC Ondansetron HCl (Zofran) 8 mg 1X ONCE IV Last administered on 06/06/17 08:23 ; Start 06/06/17 at 08:30; Stop 06/06/17 at 08:31; Status DC Morphine Sulfate 5 mg 1X ONCE IV Last administered on 06/06/17 08:29; Start 06/06/17 at 08:30; Stop 06/06/17 at 08:31; Status DC Potassium Chloride (Klor-Con) 40 meq 1X ONCE PO Last administered on 09:31; Start 06/06/17 at 08:30; Stop 06/06/17 at 08:31; Status DC Potassium Chloride/Sodium Chloride 1,000 ml @ 250 mls/hr 1X ONCE IV Last administered on 06/06/17 09:36; Start 06/06/17 at 08:30; Stop 06/06/17 at 12:29 ; Status DC Iohexol (Omnipaque 300 Mg/ml) 60 ml 1X ONCE IV Last administered on 06/06/17 08:51; Start 06/06/17 at 08:45; Stop 06/06/17 at 08:46; Status DC Magnesium Oxide (Magnesium Oxide) 800 mg 1X STAT PO Last administered on 09:31; Start 06/06/17 at 08:37; Stop 06/06/17 at 08:40; Status DC Info (Do NOT chart on this entry -- for MONITORING) 1 each PRN DAILY PRN MC SEE COMMENTS; Start 06/06/17 at 08:45; Stop 06/08/17 at 08:44; Status DC Metronidazole 100 ml @ 100 mls/hr 1X ONCE IV Last administered on 06/06/17 10:00; Start 06/06/17 at 09:30; Stop 06/06/17 at 10:29; Status DC Levofloxacin/ Dextrose (Levaquin Per Pharmacy) 1 each PRN DAILY PRN MC SEE COMMENTS; Start 06/06/17 at 09:30; Stop 06/08/17 at 09:20; Status DC Levofloxacin/ Dextrose 100 ml @ 100 mls/hr 1X ONCE IV ; Start 06/06/17 at 09: 30; Stop 06/06/17 at 10:29; Status DC Levofloxacin/ Dextrose 100 ml @ 100 mls/hr Q24H IV Last administered on 11:36; Start 06/07/17 at 10:00; Stop 06/08/17 at 08:03; Status DC Rocuronium [place] (Zemuron) 100 mg STK-MED ONCE .ROUTE ; Start 06/06/17 at 10: 28; Stop 06/06/17 at 10:29; Status DC Fentanyl Citrate (Fentanyl 5ml Vial) 250 mcg STK-MED ONCE .ROUTE ; Start at 10:28; Stop 06/06/17 at 10:29; Status DC Propofol 20 ml @ As Directed STK-MED ONCE IV ; Start 06/06/17 at 10:32; Stop at 10:33; Status DC Lidocaine HCl (Lidocaine Pf 2% Vial) 5 ml STK-MED ONCE .ROUTE ; Start 06/06/17 at 10:32; Stop 06/06/17 at 10:33; Status DC Ondansetron HCl (Zofran) 4 mg STK-MED ONCE .ROUTE ; Start 06/06/17 at 10:33; Stop 06/06/17 at 10:34; Status DC Dexamethasone Sodium Phosphate (Decadron) 20 mg STK-MED ONCE .ROUTE ; Start 06/06/17 at 10:33; Stop 06/06/17 at 10:34; Status DC Multivitamins 10 ml/Folic Acid 1 mg/Thiamine HCl 100 mg/Ringer's Solution 1, 011.2 ml @ 1,000 mls/ hr 1X ONCE IV ; Start 06/06/17 at 11:30; Stop 06/06/17 at 12:30; Status DC Fentanyl Citrate (Fentanyl 2ml Vial) 25 mcg PRN Q5MIN PRN IV MILD PAIN; Start 06/06/17 at 11:45; Stop 06/07/17 at 11:44; Status DC Fentanyl Citrate (Fentanyl 2ml Vial) 50 mcg PRN Q5MIN PRN IV MODERATE PAIN Last administered on 06/06/17 17:24; Start 06/06/17 at 11:45; Stop 06/07/17 at 11:44; Status DC Morphine Sulfate 1 mg PRN Q10MIN PRN IV SEVERE PAIN Last administered on 15:38; Start 06/06/17 at 11:45; Stop 06/07/17 at 11:44; Status DC Ringer's Solution 1,000 ml @ 30 mls/hr Q24H IV ; Start 06/06/17 at 11:39; Stop 06/06/17 at 23:38; Status DC Lidocaine HCl (Xylocaine-Mpf 1% Vial) 2 ml 1X PRN PRN ID IV START; Start at 11:45; Stop 06/07/17 at 11:44; Status DC Hydromorphone HCl (Dilaudid) 0.5 mg PRN Q10MIN PRN IV SEV PAIN, Second choice; Start 06/06/17 at 11:45; Stop 06/07/17 at 11:44; Status DC Prochlorperazine Edisylate (Compazine) 5 mg PACU PRN PRN IV NAUSEA, MRX1; Start 06/06/17 at 11:45; Stop 06/07/17 at 11:44; Status DC Phenylephrine HCl (Pedro-Synephrine Inj) 10 mg STK-MED ONCE .ROUTE ; Start at 11:58; Stop 06/06/17 at 11:59; Status DC Sodium Chloride (Sodium Chloride) 50 ml STK-MED ONCE IJ ; Start 06/06/17 at 11: 58; Stop 06/06/17 at 11:59; Status DC Sevoflurane (Ultane) 90 ml STK-MED ONCE IH ; Start 06/06/17 at 13:52; Stop 06/06 at 13:53; Status DC Neostigmine Methylsulfate 5 mg STK-MED ONCE .ROUTE ; Start 06/06/17 at 13:52; Stop 06/06/17 at 13:53; Status DC Glycopyrrolate (Robinul) 1 mg STK-MED ONCE .ROUTE ; Start 06/06/17 at 13:52; Stop 06/06/17 at 13:53; Status DC Fentanyl Citrate (Fentanyl 2ml Vial) 100 mcg STK-MED ONCE .ROUTE ; Start at 14:18; Stop 06/06/17 at 14:19; Status DC Diphenhydramine HCl (Benadryl) 25 mg PRN Q6HRS PRN IV ITCHING; Start 06/06/17 at 14:30 Enoxaparin Sodium (Lovenox 40mg Syringe) 40 mg Q24H SQ Last administered on t 15:00; Start 06/06/17 at 15:00; Stop 06/06/17 at 15:41; Status DC Sodium Chloride (Normal Saline Flush) 3 ml QSHIFT PRN IV AFTER MEDS AND BLOOD DRAWS; Start 06/06/17 at 14:30 Potassium Chloride/Sodium Chloride 1,000 ml @ 100 mls/hr Q10H IV Last administered on 06/07/17t 20:00; Start 06/06/17 at 15:00; Stop 06/08/17 at 09: 20; Status DC Hydromorphone HCl 30 ml @ 0 mls/hr CONT PRN PRN IV PROTOCOL; Start 06/06/17 at 14:30; Stop 06/06/17 at 17:30; Status DC Ondansetron HCl (Zofran) 4 mg PRN Q6HRS PRN IV NAUESA, 1ST CHOICE; Start at 14:30 Epinephrine (S2 Racepinephrine) 0.5 ml STK-MED ONCE .ROUTE ; Start 06/06/17 at 14:35; Stop 06/06/17 at 14:36; Status DC Propofol 50 ml @ As Directed STK-MED ONCE IV ; Start 06/06/17 at 14:38; Stop at 14:39; Status DC Succinylcholine Chloride (Anectine) 200 mg STK-MED ONCE .ROUTE ; Start 06/06/17 at 14:40; Stop 06/06/17 at 14:41; Status DC Epinephrine (S2 Racepinephrine) 0.5 ml 1X ONCE NEB Last administered on t 14:43; Start 06/06/17 at 14:36; Stop 06/06/17 at 14:43; Status DC Midazolam HCl (Versed) 2 mg STK-MED ONCE .ROUTE ; Start 06/06/17 at 14:48; Stop 06/06/17 at 14:49; Status DC Propofol 100 ml @ 0 mls/hr CONT PRN IV SEE I/O RECORD; Start 06/06/17 at 15:15 ; Stop 06/08/17 at 09:20; Status DC Propofol 50 ml @ As Directed STK-MED ONCE IV ; Start 06/06/17 at 15:03; Stop at 15:04; Status DC Dexamethasone Sodium Phosphate (Decadron) 12 mg 1X ONCE IV Last administered on 06/06/17 15:09; Start 06/06/17 at 15:00; Stop 06/06/17 at 15:06; Status DC Dexamethasone Sodium Phosphate (Decadron) 4 mg STK-MED ONCE .ROUTE ; Start 06/06 at 15:05; Stop 06/06/17 at 15:06; Status DC Propofol 50 ml @ 0 mls/hr 1X ONCE IV Last administered on 06/06/17 15:02; Start 06/06/17 at 15:15; Stop 06/06/17 at 15:16; Status DC Succinylcholine Chloride (Anectine) 200 mg 1X ONCE IV ; Start 06/06/17 at 15:15 ; Stop 06/06/17 at 15:16; Status DC Midazolam HCl (Versed) 2 mg 1X ONCE IV ; Start 06/06/17 at 15:15; Stop at 15:16; Status DC Cellulose 1 each STK-MED ONCE .ROUTE Last administered on 06/06/17 13:35; Start 06/06/17 at 14:19; Stop 06/06/17 at 15:20; Status DC Enoxaparin Sodium (Lovenox 40mg Syringe) 40 mg Q24H SQ Last administered on 08:48; Start 06/07/17 at 09:00; Stop 06/12/17 at 10:16; Status DC Metronidazole 100 ml @ 100 mls/hr Q12HR IV Last administered on 06/12/17 21: 32; Start 06/06/17 at 21:00; Stop 06/13/17 at 07:45; Status DC Multivitamins 10 ml/Folic Acid 1 mg/Thiamine HCl 100 mg/Dextrose/ Lactated Ringer's 1,011.2 ml @ 100 mls/ hr DAILY IV Last administered on 06/07/17 09: 21; Start 06/07/17 at 09:00; Stop 06/08/17 at 08:06; Status DC Lorazepam (Ativan) 2 mg PRN Q4HRS PRN IV ANXIETY / AGITATION; Start 06/06/17 at 15:45; Stop 06/12/17 at 10:16; Status DC Famotidine (Pepcid) 20 mg BID IVP Last administered on 06/08/17 11:18; Start 06/06/17 at 21:00; Stop 06/09/17 at 07:53; Status DC Morphine Sulfate 2 mg PRN Q2HR PRN IV PAIN Last administered on 06/10/17 22: 59; Start 06/06/17 at 15:45 Morphine Sulfate 4 mg PRN Q2HR PRN IV PAIN Last administered on 06/11/17 08: 31; Start 06/06/17 at 15:45 Ondansetron HCl (Zofran) 4 mg PRN Q6HRS PRN IV NAUSEA/VOMITING; Start 06/06/17 at 15:45; Stop 06/06/17 at 15:45; Status DC Fentanyl Citrate 30 ml @ 0 mls/hr CONT PRN IV PROTOCOL Last administered on 02:54; Start 06/06/17 at 17:30; Stop 06/07/17 at 10:39; Status DC Midazolam HCl 100 ml @ 0 mls/hr CONT PRN IV SEE I/O RECORD; Start 06/06/17 at 23:00; Stop 06/08/17 at 09:20; Status DC Sodium Chloride 1,000 ml @ 1,000 mls/hr 1X ONCE IV Last administered on 23:34; Start 06/06/17 at 23:00; Stop 06/06/17 at 23:59; Status DC Magnesium Sulfate/ Dextrose 50 ml @ 25 mls/hr 1X ONCE IV Last administered on 06/07/17 09:28; Start 06/07/17 at 08:15; Stop 06/07/17 at 10:14; Status DC Info 1 each PRN DAILY PRN MC SEE COMMENTS Last administered on 06/18/17 13:01 ; Start 06/07/17 at 09:30 Methylprednisolone Sodium Succinate (SOLU-Medrol 125MG VIAL) 50 mg DAILY IV Last administered on 06/12/17 08:47; Start 06/07/17 at 11:00; Stop 06/12/17 at 10:16; Status DC Hydromorphone HCl 30 ml @ 0 mls/hr CONT PRN PRN IV PROTOCOL Last administered on 06/07/17 11:16; Start 06/07/17 at 10:45; Stop 06/09/17 at 08:57; Status DC Sodium Chloride 90 meq/Potassium Chloride 50 meq/ Potassium Phosphate 13.6 mmol/ Magnesium Sulfate 10 meq/ Calcium Gluconate 10 meq/ Multivitamins 10 ml/Chromium / Copper/Manganese/ Seleni/Zn 1 ml/ Total Parenteral Nutrition/Amino Acids/ Dextrose/ Fat Emulsion Intravenous 1,512 ml @ 63 mls/hr TPN CONT IV Last administered on 06/07/17 22:04; Start 06/07/17 at 22:00; Stop 06/08/17 at 21 :59; Status DC Influenza Virus Vaccine Quadrival (Fluarix Quad [id number] Syringe) 0.5 ml ONCE ONCE VAX IM Last administered on 06/08/17 13:23; Start 06/07/17 at 16:15; Stop 06/07/17 at 16:35; Status DC Pneumococcal Polyvalent Vaccine (Do NOT chart on this placeholder) 1 each PRN 1X PRN MC SEE COMMENTS; Start 06/07/17 at 16:45; Status UNV Pneumococcal Polyvalent Vaccine (Pneumovax 23) 0.5 ml ONCE ONCE VAX IM Last administered on 06/08/17 13:25; Start 06/07/17 at 17:00; Stop 06/07/17 at 17 :01; Status DC Ceftriaxone Sodium 1 gm/ Sodium Chloride 50 ml @ 100 mls/hr Q24H IV Last administered on 06/12/17 08:45; Start 06/08/17 at 09:00; Stop 06/13/17 at 07 :45; Status DC Sodium Phosphate 20 mmol/Dextrose 256.6667 ml @ 64.167 m... 1X ONCE IV Last administered on 06/08/17 08:58; Start 06/08/17 at 09:00; Stop 06/08/17 at 12 :59; Status DC Multi-Ingred Cream/Lotion/Oil/ Oint (Artificial Tears Eye Oint) 1 juvenal PRN Q1HR PRN OU DRY EYE; Start 06/08/17 at 09:15 Sodium Chloride 90 meq/Potassium Chloride 40 meq/ Potassium Phosphate 17 mmol/ Magnesium Sulfate 10 meq/Calcium Gluconate 10 meq/ Multivitamins 10 ml/Chromium / Copper/Manganese/ Seleni/Zn 1 ml/ Total Parenteral Nutrition/Amino Acids/ Dextrose/ Fat Emulsion Intravenous 1,512 ml @ 63 mls/hr TPN CONT IV Last administered on 06/08/17 22:42; Start 06/08/17 at 22:00; Stop 06/09/17 at 21 :59; Status DC Diclofenac Sodium (Voltaren) 1 juvenal BID TP Last administered on 06/16/17 09:16 ; Start 06/08/17 at 21:00 Oxycodone/ Acetaminophen (Percocet 10/325) 1 tab PRN Q4HRS PRN PO pain Last administered on 06/15/17 08:48; Start 06/09/17 at 08:00; Stop 06/15/17 at 10 :39; Status DC Magnesium Sulfate/ Dextrose 50 ml @ 25 mls/hr 1X ONCE IV Last administered on 06/09/17 09:31; Start 06/09/17 at 08:00; Stop 06/09/17 at 09:59; Status DC Potassium Phosphate (K-Phos Original) 500 mg BID PO Last administered on 09:40; Start 06/09/17 at 09:00 Lidocaine (Lidoderm) 1 patch DAILY TD Last administered on 06/09/17 09:36; Start 06/09/17 at 09:00; Stop 06/10/17 at 20:50; Status DC Potassium Phosphate 13.6 mmol/Sodium Chloride 104.5333 ml @ 52.267 m... 1X ONCE IV Last administered on 06/09/17 13:51; Start 06/09/17 at 13:30; Stop 06/09/17 at 15:29; Status DC Sodium Chloride 40 meq/Sodium Acetate 50 meq/ Potassium Chloride 40 meq/ Potassium Phosphate 20 mmol/ Magnesium Sulfate 15 meq/Calcium Gluconate 10 meq/ Multivitamins 10 ml/Chromium/ Copper/Manganese/ Seleni/Zn 1 ml/ Total Parenteral Nutrition/Amino Acids/Dextrose/ Fat Emulsion Intravenous 1,512 ml @ 63 mls/hr TPN CONT IV Last administered on 06/09/17 22:11; Start 06/09/17 at 22:00; Stop 06/10/17 at 21:59; Status DC Potassium Chloride (Klor-Con) 40 meq 1X ONCE PO Last administered on 10:40; Start 06/10/17 at 09:30; Stop 06/10/17 at 09:31; Status DC Potassium Chloride (Klor-Con) 20 meq [id number] PO Last administered on 07:59; Start 06/11/17 at 08:00 Magnesium Sulfate/ Dextrose 50 ml @ 25 mls/hr 1X ONCE IV Last administered on 06/10/17 10:38; Start 06/10/17 at 10:00; Stop 06/10/17 at 11:59; Status DC Sodium Chloride 40 meq/Sodium Acetate 50 meq/ Potassium Acetate 60 meq/ Potassium Phosphate 18 mmol/ Magnesium Sulfate 18 meq/Calcium Gluconate 10 meq/ Multivitamins 10 ml/Chromium/ Copper/Manganese/ Seleni/Zn 1 ml/ Total Parenteral Nutrition/Amino Acids/Dextrose/ Fat Emulsion Intravenous 1,512 ml @ 63 mls/hr TPN CONT IV Last administered on 06/10/17 21:43; Start 06/10/17 at 22:00; Stop 06/11/17 at 22:00; Status DC Lidocaine (Lidoderm) 1 patch QHS TD Last administered on 06/10/17 21:37; Start 06/10/17 at 21:00; Stop 06/12/17 at 05:01; Status DC Magnesium Sulfate/ Dextrose 100 ml @ 25 mls/hr 1X ONCE IV Last administered on 06/11/17 11:22; Start 06/11/17 at 09:00; Stop 06/11/17 at 12:59; Status DC Lisinopril (Prinivil) 10 mg DAILY PO Last administered on 06/13/17 08:34; Start 06/11/17 at 13:00; Stop 06/13/17 at 09:19; Status DC Metoprolol Succinate (Toprol Xl) 100 mg DAILY PO Last administered on 09:40; Start 06/11/17 at 13:00 Hydrochlorothiazide (Hydrodiuril) 25 mg DAILY PO Last administered on 09:40; Start 06/11/17 at 13:00 Sodium Chloride 40 meq/Sodium Acetate 50 meq/ Potassium Acetate 60 meq/ Potassium Phosphate 18 mmol/ Magnesium Sulfate 18 meq/Calcium Gluconate 10 meq/ Multivitamins 10 ml/Chromium/ Copper/Manganese/ Seleni/Zn 1 ml/ Total Parenteral Nutrition/Amino Acids/Dextrose/ Fat Emulsion Intravenous 1,512 ml @ 63 mls/hr TPN CONT IV Last administered on 06/11/17 21:43; Start 06/11/17 at 22:00; Stop 06/12/17 at 21:59; Status DC Lidocaine (Lidoderm) 1 patch DAILY TD Last administered on 06/13/17 08:35; Start 06/12/17 at 09:00 Hydralazine HCl (Apresoline Inj) 10 mg PRN Q4HRS PRN IVP ELEVATED BP, SEE COMMENTS; Start 06/12/17 at 09:00 Magnesium Sulfate/ Dextrose 100 ml @ 25 mls/hr 1X ONCE IV Last administered on 06/12/17 09:53; Start 06/12/17 at 09:30; Stop 06/12/17 at 13:29; Status DC Magnesium Oxide (Magnesium Oxide) 400 mg DAILY PO Last administered on 09:39; Start 06/12/17 at 09:30 Lorazepam (Ativan) 1 mg PRN Q4HRS PRN IV ANXIETY / AGITATION; Start 06/12/17 at 10:15 Alprazolam (Xanax) 0.5 mg PRN Q8HRS PRN PO ANXIETY / AGITATION; Start at 10:15 Prednisone (Prednisone) 20 mg DAILY PO Last administered on 06/13/17 08:34; Start 06/13/17 at 09:00; Stop 06/13/17 at 15:06; Status DC Sodium Chloride 60 meq/Sodium Acetate 50 meq/ Potassium Acetate 60 meq/ Potassium Phosphate 18 mmol/ Magnesium Sulfate 27 meq/Calcium Gluconate 10 meq/ Multivitamins 10 ml/Chromium/ Copper/Manganese/ Seleni/Zn 1 ml/ Total Parenteral Nutrition/Amino Acids/Dextrose/ Fat Emulsion Intravenous 1,512 ml @ 63 mls/hr TPN CONT IV Last administered on 06/12/17 21:33; Start 06/12/17 at 22:00; Stop 06/13/17 at 21:59; Status DC Metronidazole (Flagyl) 500 mg Q12HR PO Last administered on 06/15/17 21:48; Start 06/13/17 at 09:00; Stop 06/16/17 at 09:05; Status DC Cefpodoxime Proxetil (Vantin) 200 mg BID PO Last administered on 06/15/17 21: 49; Start 06/13/17 at 09:00; Stop 06/16/17 at 09:05; Status DC Lisinopril (Prinivil) 20 mg DAILY PO Last administered on 06/19/17 09:41; Start 06/14/17 at 09:00 Lisinopril (Prinivil) 10 mg 1X ONCE PO ; Start 06/13/17 at 09:30; Stop at 09:31; Status DC Docusate Sodium (Colace) 100 mg BID PO Last administered on 06/19/17 09:40; Start 06/13/17 at 11:30 Sodium Chloride 60 meq/Sodium Acetate 50 meq/ Potassium Acetate 60 meq/ Potassium Phosphate 18 mmol/ Magnesium Sulfate 27 meq/Calcium Gluconate 10 meq/ Multivitamins 10 ml/Chromium/ Copper/Manganese/ Seleni/Zn 1 ml/ Total Parenteral Nutrition/Amino Acids/Dextrose/ Fat Emulsion Intravenous 1,512 ml @ 63 mls/hr TPN CONT IV Last administered on 06/13/17 22:31; Start 06/13/17 at 22:00; Stop 06/14/17 at 21:59; Status DC Lisinopril (Prinivil) 10 mg 1X ONCE PO Last administered on 06/13/17 16:18; Start 06/13/17 at 14:45; Stop 06/13/17 at 14:46; Status DC Polyethylene Glycol (miraLAX PACKET) 17 gm DAILY PO ; Start 06/14/17 at 09:30; Stop 06/14/17 at 11:47; Status DC Magnesium Hydroxide (Milk Of Magnesia) 2,400 mg PRN DAILY PRN PO CONSTIPATION; Start 06/14/17 at 09:30; Stop 06/14/17 at 11:47; Status DC Magnesium Hydroxide (Milk Of Magnesia) 2,400 mg 1X ONCE PO ; Start 06/14/17 at 09:30; Stop 06/14/17 at 09:31; Status Cancel Magnesium Sulfate/ Dextrose 100 ml @ 25 mls/hr 1X ONCE IV Last administered on 06/14/17 12:03; Start 06/14/17 at 10:00; Stop 06/14/17 at 13:59; Status DC Sodium Chloride 80 meq/Sodium Acetate 50 meq/ Potassium Acetate 60 meq/ Potassium Phosphate 18 mmol/ Magnesium Sulfate 27 meq/Calcium Gluconate 10 meq/ Multivitamins 10 ml/Chromium/ Copper/Manganese/ Seleni/Zn 1 ml/ Total Parenteral Nutrition/Amino Acids/Dextrose/ Fat Emulsion Intravenous 1,512 ml @ 63 mls/hr TPN CONT IV Last administered on 06/14/17 22:34; Start 06/14/17 at 22:00; Stop 06/15/17 at 21:59; Status DC Hydromorphone HCl (Dilaudid) 1 mg 1X ONCE IV Last administered on 06/14/17 15:47; Start 06/14/17 at 13:15; Stop 06/14/17 at 13:16; Status DC Iohexol (Omnipaque 300 Mg/ml) 75 ml 1X ONCE IV Last administered on 13:56; Start 06/14/17 at 13:30; Stop 06/14/17 at 13:31; Status DC Info (Do NOT chart on this entry -- for MONITORING) 1 each PRN DAILY PRN MC SEE COMMENTS; Start 06/14/17 at 13:15; Stop 06/16/17 at 13:14; Status DC Oxycodone/ Acetaminophen (Percocet 10325) 1 tab Q4HRS PO Last administered on 06/19/17 08:02; Start 06/15/17 at 12:00 Sodium Chloride 80 meq/Sodium Acetate 50 meq/ Potassium Acetate 60 meq/ Potassium Phosphate 18 mmol/ Magnesium Sulfate 27 meq/Calcium Gluconate 10 meq/ Multivitamins 10 ml/Chromium/ Copper/Manganese/ Seleni/Zn 1 ml/ Total Parenteral Nutrition/Amino Acids/Dextrose/ Fat Emulsion Intravenous 1,512 ml @ 63 mls/hr TPN CONT IV Last administered on 06/15/17 22:14; Start 06/15/17 at 22:00; Stop 06/16/17 at 21:59; Status DC Meropenem 1 gm/ Sodium Chloride 100 ml @ 200 mls/hr Q8HRS IV Last administered on 06/19/17 05:54; Start 06/16/17 at 14:00 Vancomycin HCl (Vanco Per Pharmacy) 1 each PRN DAILY PRN MC SEE COMMENTS Last administered on 06/19/17 00:24; Start 06/16/17 at 09:00 Fluconazole/ Sodium Chloride 200 ml @ 100 mls/hr Q24H IV Last administered on 06/19/17 10:22; Start 06/16/17 at 10:00 Vancomycin HCl 2 gm/Dextrose 500 ml @ 250 mls/hr 1X ONCE IV Last administered on 06/16/17 11:57; Start 06/16/17 at 11:00; Stop 06/16/17 at 12 :59; Status DC Magnesium Sulfate/ Dextrose 50 ml @ 25 mls/hr 1X ONCE IV Last administered on 06/16/17 11:56; Start 06/16/17 at 10:30; Stop 06/16/17 at 12:30; Status DC Vancomycin HCl 1.25 gm/Dextrose 250 ml @ 167 mls/hr Q12H IV Last administered on 06/19/17 00:26; Start 06/17/17 at 00:00 Vancomycin HCl 1 each 1X ONCE MC Last administered on 06/18/17 23:30; Start 06/18/17 at 23:30; Stop 06/18/17 at 23:31; Status DC Sodium Chloride 80 meq/Sodium Acetate 50 meq/ Potassium Acetate 60 meq/ Potassium Phosphate 18 mmol/ Magnesium Sulfate 30 meq/Calcium Gluconate 10 meq/ Multivitamins 10 ml/Chromium/ Copper/Manganese/ Seleni/Zn 1 ml/ Total Parenteral Nutrition/Amino Acids/Dextrose/ Fat Emulsion Intravenous 1,512 ml @ 63 mls/hr TPN CONT IV Last administered on 06/16/17 22:03; Start 06/16/17 at 22:00; Stop 06/17/17 at 21:59; Status DC Lactobacillus Acidophilus (Bacid, Jenniffer-Bid) 1 tab BID PO Last administered on 06/19/17 09:40; Start 06/16/17 at 21:00; Stop 06/19/17 at 09:01; Status DC Magnesium Sulfate/ Dextrose 50 ml @ 25 mls/hr 1X ONCE IV Last administered on 06/17/17 10:00; Start 06/17/17 at 10:00; Stop 06/17/17 at 11:59; Status DC Sodium Chloride 80 meq/Sodium Acetate 50 meq/ Potassium Acetate 60 meq/ Potassium Phosphate 18 mmol/ Magnesium Sulfate 30 meq/Calcium Gluconate 10 meq/ Multivitamins 10 ml/Chromium/ Copper/Manganese/ Seleni/Zn 1 ml/ Total Parenteral Nutrition/Amino Acids/Dextrose/ Fat Emulsion Intravenous 1,512 ml @ 63 mls/hr TPN CONT IV Last administered on 06/17/17 22:00; Start 06/17/17 at 22:00; Stop 06/18/17 at 21:59; Status DC Sodium Chloride 95 meq/Sodium Acetate 50 meq/ Potassium Acetate 60 meq/ Potassium Phosphate 18 mmol/ Magnesium Sulfate 30 meq/Calcium Gluconate 10 meq/ Multivitamins 10 ml/Chromium/ Copper/Manganese/ Seleni/Zn 1 ml/ Total Parenteral Nutrition/Amino Acids/Dextrose/ Fat Emulsion Intravenous 1,512 ml @ 63 mls/hr TPN CONT IV Last administered on 06/18/17 22:06; Start 06/18/17 at 22:00; Stop 06/19/17 at 21:59 Lactobacillus Rhamnosus (Culturelle) 1 cap BID PO ; Start 06/19/17 at 21:00 Active Scripts Active Reported [prednisone taper] Metoprolol Succinate ( Xl ) (Metoprolol Succinate) 100 Mg Tab.er.24h 1 Tab PO DAILY Lisinopril 10 Mg Tablet 1 Tab PO DAILY Hydrochlorothiazide Tablet (Hydrochlorothiazide) 50 Mg Tablet 25 Tab PO DAILY Vitals/I & O Vital Sign - Last 24 Hours 06/18/17 06/18/17 06/18/17 06/18/17 11:00 12:15 15:00 16:00 Temp 97.0 100.0 97.0 100.0 Pulse 68 62 Resp 16 18 16 18 B/P (MAP) 96/51 (66) 121/60 (80) Pulse Ox 98 98 99 O2 Delivery Room Air Room Air Room Air Room Air 06/18/17 06/18/17 06/18/17 06/19/17 19:00 19:36 23:00 00:25 Temp 100.8 99.2 100.8 99.2 Pulse 78 73 Resp 16 18 18 18 B/P (MAP) 107/71 (83) 134/69 (90) Pulse Ox 94 99 94 94 O2 Delivery Room Air Room Air 06/19/17 06/19/17 06/19/17 06/19/17 03:00 04:02 08:00 08:02 Temp 98.8 98.8 Pulse 70 Resp 18 16 18 B/P (MAP) 113/59 (77) Pulse Ox 95 94 94 O2 Delivery Room Air Room Air Room Air 06/19/17 06/19/17 06/19/17 09:02 09:40 09:41 Pulse 70 70 Resp 18 B/P (MAP) 113/59 113/59 Pulse Ox 94 O2 Delivery Room Air LARRY LEOS MD Jun 19, 2017 10:46
--- NOTE | 2017-06-19 11:00 | PDOC ---
PROGRESS NOTES Subjective Subjective pretty good day today, noticed more drainage from wound Objective Objective Vital Signs Date Time Temp Pulse Resp B/P (MAP) Pulse Ox O2 Delivery O2 Flow Rate FiO2 06/19/17 09:41 70 113/59 06/19/17 09:02 18 94 Room Air 06/19/17 03:00 98.8 98.8 06/18/17 08:02 2.0 Physical Exam Abdomen: Soft (sl distended, small amount liquid stool in ostomy, mild erythema with small amount drainage from wound) Assessment Assessment Problems Medical Problems: (1) Abdominal pain Status: Acute (2) Elevated brain natriuretic peptide (BNP) level Status: Acute (3) Hypomagnesemia Status: Acute (4) Perforated abdominal viscus Status: Acute Plan Plan of Care No new recs Comment Review of Relevant I have reviewed the following items ananda (where applicable) has been applied. Labs Laboratory Tests Test 06/17/17 11:31 06/17/17 17:21 06/17/17 20:56 06/18/17 05:55 Glucose (Fingerstick) 135 mg/dL (70-99) 130 mg/dL (70-99) 111 mg/dL (70-99) White Blood Count 11.0 x10^3/uL (4.0-11.0) Red Blood Count 2.96 x10^6/uL (4.30-5.70) Hemoglobin 8.5 g/dL (13.0-17.5) Hematocrit 25.6 % (39.0-53.0) Mean Corpuscular Volume 86 fL (79-100) Mean Corpuscular Hemoglobin 29 pg (25-35) Mean Corpuscular Hemoglobin Concent 33 g/dL (31-37) Red Cell Distribution Width 14.0 % (11.5-14.5) Platelet Count 583 x10^3/uL (140-400) Neutrophils (%) (Auto) 76 % (31-73) Lymphocytes (%) (Auto) 9 % (24-48) Monocytes (%) (Auto) 11 % (0-9) Eosinophils (%) (Auto) 3 % (0-3) Basophils (%) (Auto) 1 % (0-3) Neutrophils # (Auto) 8.4 x10^3uL (1.8-7.7) Lymphocytes # (Auto) 1.0 x10^3/uL (1.0-4.8) Monocytes # (Auto) 1.2 x10^3/uL (0.0-1.1) Eosinophils # (Auto) 0.3 x10^3/uL (0.0-0.7) Basophils # (Auto) 0.1 x10^3/uL (0.0-0.2) Sodium Level 132 mmol/L (136-145) Potassium Level 4.0 mmol/L (3.5-5.1) Chloride Level 98 mmol/L (98-107) Carbon Dioxide Level 29 mmol/L (21-32) Anion Gap 5 (6-14) Blood Urea Nitrogen 19 mg/dL (8-26) Creatinine 1.1 mg/dL (0.7-1.3) Estimated GFR (Cockcroft-Gault) 67.0 Glucose Level 118 mg/dL (70-99) Calcium Level 8.2 mg/dL (8.5-10.1) Magnesium Level 1.8 mg/dL (1.8-2.4) Iron Level 10 ug/dL (65-175) Total Iron Binding Capacity 121 ug/dL (250-450) Iron Saturation 8 % (15-34) Ferritin 458 ng/mL (26-388) Test 06/18/17 07:45 06/18/17 12:04 06/18/17 16:32 06/18/17 20:44 Glucose (Fingerstick) 127 mg/dL (70-99) 131 mg/dL (70-99) 105 mg/dL (70-99) 144 mg/dL (70-99) Test 06/18/17 23:20 06/19/17 04:35 Vancomycin Level Trough 17.5 mcg/mL (10.0-20.0) Vancomycin Last Dose Date Vancomycin Last Dose Time White Blood Count 9.7 x10^3/uL (4.0-11.0) Red Blood Count 2.64 x10^6/uL (4.30-5.70) Hemoglobin 7.7 g/dL (13.0-17.5) Hematocrit 22.6 % (39.0-53.0) Mean Corpuscular Volume 86 fL (79-100) Mean Corpuscular Hemoglobin 29 pg (25-35) Mean Corpuscular Hemoglobin Concent 34 g/dL (31-37) Red Cell Distribution Width 14.0 % (11.5-14.5) Platelet Count 589 x10^3/uL (140-400) Neutrophils (%) (Auto) 66 % (31-73) Lymphocytes (%) (Auto) 15 % (24-48) Monocytes (%) (Auto) 15 % (0-9) Eosinophils (%) (Auto) 4 % (0-3) Basophils (%) (Auto) 1 % (0-3) Neutrophils # (Auto) 6.4 x10^3uL (1.8-7.7) Lymphocytes # (Auto) 1.4 x10^3/uL (1.0-4.8) Monocytes # (Auto) 1.5 x10^3/uL (0.0-1.1) Eosinophils # (Auto) 0.4 x10^3/uL (0.0-0.7) Basophils # (Auto) 0.1 x10^3/uL (0.0-0.2) Sodium Level 134 mmol/L (136-145) Potassium Level 4.2 mmol/L (3.5-5.1) Chloride Level 100 mmol/L (98-107) Carbon Dioxide Level 30 mmol/L (21-32) Anion Gap 4 (6-14) Blood Urea Nitrogen 16 mg/dL (8-26) Creatinine 1.0 mg/dL (0.7-1.3) Estimated GFR (Cockcroft-Gault) 74.8 Glucose Level 87 mg/dL (70-99) Calcium Level 8.4 mg/dL (8.5-10.1) Laboratory Tests Test 06/18/17 12:04 06/18/17 16:32 06/18/17 20:44 06/18/17 23:20 Glucose (Fingerstick) 131 mg/dL (70-99) 105 mg/dL (70-99) 144 mg/dL (70-99) Vancomycin Level Trough 17.5 mcg/mL (10.0-20.0) Vancomycin Last Dose Date Vancomycin Last Dose Time Test 06/19/17 04:35 White Blood Count 9.7 x10^3/uL (4.0-11.0) Red Blood Count 2.64 x10^6/uL (4.30-5.70) Hemoglobin 7.7 g/dL (13.0-17.5) Hematocrit 22.6 % (39.0-53.0) Mean Corpuscular Volume 86 fL (79-100) Mean Corpuscular Hemoglobin 29 pg (25-35) Mean Corpuscular Hemoglobin Concent 34 g/dL (31-37) Red Cell Distribution Width 14.0 % (11.5-14.5) Platelet Count 589 x10^3/uL (140-400) Neutrophils (%) (Auto) 66 % (31-73) Lymphocytes (%) (Auto) 15 % (24-48) Monocytes (%) (Auto) 15 % (0-9) Eosinophils (%) (Auto) 4 % (0-3) Basophils (%) (Auto) 1 % (0-3) Neutrophils # (Auto) 6.4 x10^3uL (1.8-7.7) Lymphocytes # (Auto) 1.4 x10^3/uL (1.0-4.8) Monocytes # (Auto) 1.5 x10^3/uL (0.0-1.1) Eosinophils # (Auto) 0.4 x10^3/uL (0.0-0.7) Basophils # (Auto) 0.1 x10^3/uL (0.0-0.2) Sodium Level 134 mmol/L (136-145) Potassium Level 4.2 mmol/L (3.5-5.1) Chloride Level 100 mmol/L (98-107) Carbon Dioxide Level 30 mmol/L (21-32) Anion Gap 4 (6-14) Blood Urea Nitrogen 16 mg/dL (8-26) Creatinine 1.0 mg/dL (0.7-1.3) Estimated GFR (Cockcroft-Gault) 74.8 Glucose Level 87 mg/dL (70-99) Calcium Level 8.4 mg/dL (8.5-10.1) Microbiology 06/16/17 Blood Culture - Preliminary, Resulted NO GROWTH AFTER 3 DAYS 06/06/17 Anaerobic/Aerobic Culture - Final, Complete 06/06/17 Anaerobic Culture Result 1 (AISSATOU) - Final, Complete 06/06/17 Anaerobic Culture Result 2 (AISSATOU) - Final, Complete 06/06/17 Aerobic Culture - Final, Complete 06/06/17 Aerobic Culture Result 1 (AISSATOU) - Final, Complete 06/06/17 Aerobic Culture Result 2 (AISSATOU) - Final, Complete 06/06/17 Antimicrobic Susceptibility - Final, Complete Medications Current Medications Sodium Chloride 1,000 ml @ 1,000 mls/hr 1X ONCE IV Last administered on 08:22; Start 06/06/17 at 08:30; Stop 06/06/17 at 09:29; Status DC Ondansetron HCl (Zofran) 8 mg 1X ONCE IV Last administered on 06/06/17 08:23 ; Start 06/06/17 at 08:30; Stop 06/06/17 at 08:31; Status DC Morphine Sulfate 5 mg 1X ONCE IV Last administered on 06/06/17 08:29; Start 06/06/17 at 08:30; Stop 06/06/17 at 08:31; Status DC Potassium Chloride (Klor-Con) 40 meq 1X ONCE PO Last administered on 09:31; Start 06/06/17 at 08:30; Stop 06/06/17 at 08:31; Status DC Potassium Chloride/Sodium Chloride 1,000 ml @ 250 mls/hr 1X ONCE IV Last administered on 06/06/17 09:36; Start 06/06/17 at 08:30; Stop 06/06/17 at 12:29 ; Status DC Iohexol (Omnipaque 300 Mg/ml) 60 ml 1X ONCE IV Last administered on 06/06/17 08:51; Start 06/06/17 at 08:45; Stop 06/06/17 at 08:46; Status DC Magnesium Oxide (Magnesium Oxide) 800 mg 1X STAT PO Last administered on 09:31; Start 06/06/17 at 08:37; Stop 06/06/17 at 08:40; Status DC Info (Do NOT chart on this entry -- for MONITORING) 1 each PRN DAILY PRN MC SEE COMMENTS; Start 06/06/17 at 08:45; Stop 06/08/17 at 08:44; Status DC Metronidazole 100 ml @ 100 mls/hr 1X ONCE IV Last administered on 06/06/17 10:00; Start 06/06/17 at 09:30; Stop 06/06/17 at 10:29; Status DC Levofloxacin/ Dextrose (Levaquin Per Pharmacy) 1 each PRN DAILY PRN MC SEE COMMENTS; Start 06/06/17 at 09:30; Stop 06/08/17 at 09:20; Status DC Levofloxacin/ Dextrose 100 ml @ 100 mls/hr 1X ONCE IV ; Start 06/06/17 at 09: 30; Stop 06/06/17 at 10:29; Status DC Levofloxacin/ Dextrose 100 ml @ 100 mls/hr Q24H IV Last administered on t 11:36; Start 06/07/17 at 10:00; Stop 06/08/17 at 08:03; Status DC Rocuronium [place] (Zemuron) 100 mg STK-MED ONCE .ROUTE ; Start 06/06/17 at 10: 28; Stop 06/06/17 at 10:29; Status DC Fentanyl Citrate (Fentanyl 5ml Vial) 250 mcg STK-MED ONCE .ROUTE ; Start at 10:28; Stop 06/06/17 at 10:29; Status DC Propofol 20 ml @ As Directed STK-MED ONCE IV ; Start 06/06/17 at 10:32; Stop at 10:33; Status DC Lidocaine HCl (Lidocaine Pf 2% Vial) 5 ml STK-MED ONCE .ROUTE ; Start 06/06/17 at 10:32; Stop 06/06/17 at 10:33; Status DC Ondansetron HCl (Zofran) 4 mg STK-MED ONCE .ROUTE ; Start 06/06/17 at 10:33; Stop 06/06/17 at 10:34; Status DC Dexamethasone Sodium Phosphate (Decadron) 20 mg STK-MED ONCE .ROUTE ; Start 06/06/17 at 10:33; Stop 06/06/17 at 10:34; Status DC Multivitamins 10 ml/Folic Acid 1 mg/Thiamine HCl 100 mg/Ringer's Solution 1, 011.2 ml @ 1,000 mls/ hr 1X ONCE IV ; Start 06/06/17 at 11:30; Stop 06/06/17 at 12:30; Status DC Fentanyl Citrate (Fentanyl 2ml Vial) 25 mcg PRN Q5MIN PRN IV MILD PAIN; Start 06/06/17 at 11:45; Stop 06/07/17 at 11:44; Status DC Fentanyl Citrate (Fentanyl 2ml Vial) 50 mcg PRN Q5MIN PRN IV MODERATE PAIN Last administered on 06/06/17t 17:24; Start 06/06/17 at 11:45; Stop 06/07/17 at 11:44; Status DC Morphine Sulfate 1 mg PRN Q10MIN PRN IV SEVERE PAIN Last administered on t 15:38; Start 06/06/17 at 11:45; Stop 06/07/17 at 11:44; Status DC Ringer's Solution 1,000 ml @ 30 mls/hr Q24H IV ; Start 06/06/17 at 11:39; Stop 06/06/17 at 23:38; Status DC Lidocaine HCl (Xylocaine-Mpf 1% Vial) 2 ml 1X PRN PRN ID IV START; Start at 11:45; Stop 06/07/17 at 11:44; Status DC Hydromorphone HCl (Dilaudid) 0.5 mg PRN Q10MIN PRN IV SEV PAIN, Second choice; Start 06/06/17 at 11:45; Stop 06/07/17 at 11:44; Status DC Prochlorperazine Edisylate (Compazine) 5 mg PACU PRN PRN IV NAUSEA, MRX1; Start 06/06/17 at 11:45; Stop 06/07/17 at 11:44; Status DC Phenylephrine HCl (Pedro-Synephrine Inj) 10 mg STK-MED ONCE .ROUTE ; Start at 11:58; Stop 06/06/17 at 11:59; Status DC Sodium Chloride (Sodium Chloride) 50 ml STK-MED ONCE IJ ; Start 06/06/17 at 11: 58; Stop 06/06/17 at 11:59; Status DC Sevoflurane (Ultane) 90 ml STK-MED ONCE IH ; Start 06/06/17 at 13:52; Stop 06/06 at 13:53; Status DC Neostigmine Methylsulfate 5 mg STK-MED ONCE .ROUTE ; Start 06/06/17 at 13:52; Stop 06/06/17 at 13:53; Status DC Glycopyrrolate (Robinul) 1 mg STK-MED ONCE .ROUTE ; Start 06/06/17 at 13:52; Stop 06/06/17 at 13:53; Status DC Fentanyl Citrate (Fentanyl 2ml Vial) 100 mcg STK-MED ONCE .ROUTE ; Start at 14:18; Stop 06/06/17 at 14:19; Status DC Diphenhydramine HCl (Benadryl) 25 mg PRN Q6HRS PRN IV ITCHING; Start 06/06/17 at 14:30 Enoxaparin Sodium (Lovenox 40mg Syringe) 40 mg Q24H SQ Last administered on 15:00; Start 06/06/17 at 15:00; Stop 06/06/17 at 15:41; Status DC Sodium Chloride (Normal Saline Flush) 3 ml QSHIFT PRN IV AFTER MEDS AND BLOOD DRAWS; Start 06/06/17 at 14:30 Potassium Chloride/Sodium Chloride 1,000 ml @ 100 mls/hr Q10H IV Last administered on 06/07/17 20:00; Start 06/06/17 at 15:00; Stop 06/08/17 at 09: 20; Status DC Hydromorphone HCl 30 ml @ 0 mls/hr CONT PRN PRN IV PROTOCOL; Start 06/06/17 at 14:30; Stop 06/06/17 at 17:30; Status DC Ondansetron HCl (Zofran) 4 mg PRN Q6HRS PRN IV NAUESA, 1ST CHOICE; Start at 14:30 Epinephrine (S2 Racepinephrine) 0.5 ml STK-MED ONCE .ROUTE ; Start 06/06/17 at 14:35; Stop 06/06/17 at 14:36; Status DC Propofol 50 ml @ As Directed STK-MED ONCE IV ; Start 06/06/17 at 14:38; Stop at 14:39; Status DC Succinylcholine Chloride (Anectine) 200 mg STK-MED ONCE .ROUTE ; Start 06/06/17 at 14:40; Stop 06/06/17 at 14:41; Status DC Epinephrine (S2 Racepinephrine) 0.5 ml 1X ONCE NEB Last administered on 14:43; Start 06/06/17 at 14:36; Stop 06/06/17 at 14:43; Status DC Midazolam HCl (Versed) 2 mg STK-MED ONCE .ROUTE ; Start 06/06/17 at 14:48; Stop 06/06/17 at 14:49; Status DC Propofol 100 ml @ 0 mls/hr CONT PRN IV SEE I/O RECORD; Start 06/06/17 at 15:15 ; Stop 06/08/17 at 09:20; Status DC Propofol 50 ml @ As Directed STK-MED ONCE IV ; Start 06/06/17 at 15:03; Stop at 15:04; Status DC Dexamethasone Sodium Phosphate (Decadron) 12 mg 1X ONCE IV Last administered on 06/06/17 15:09; Start 06/06/17 at 15:00; Stop 06/06/17 at 15:06; Status DC Dexamethasone Sodium Phosphate (Decadron) 4 mg STK-MED ONCE .ROUTE ; Start 06/06 at 15:05; Stop 06/06/17 at 15:06; Status DC Propofol 50 ml @ 0 mls/hr 1X ONCE IV Last administered on 06/06/17 15:02; Start 06/06/17 at 15:15; Stop 06/06/17 at 15:16; Status DC Succinylcholine Chloride (Anectine) 200 mg 1X ONCE IV ; Start 06/06/17 at 15:15 ; Stop 06/06/17 at 15:16; Status DC Midazolam HCl (Versed) 2 mg 1X ONCE IV ; Start 06/06/17 at 15:15; Stop at 15:16; Status DC Cellulose 1 each STK-MED ONCE .ROUTE Last administered on 06/06/17 13:35; Start 06/06/17 at 14:19; Stop 06/06/17 at 15:20; Status DC Enoxaparin Sodium (Lovenox 40mg Syringe) 40 mg Q24H SQ Last administered on 08:48; Start 06/07/17 at 09:00; Stop 06/12/17 at 10:16; Status DC Metronidazole 100 ml @ 100 mls/hr Q12HR IV Last administered on 06/12/17 21: 32; Start 06/06/17 at 21:00; Stop 06/13/17 at 07:45; Status DC Multivitamins 10 ml/Folic Acid 1 mg/Thiamine HCl 100 mg/Dextrose/ Lactated Ringer's 1,011.2 ml @ 100 mls/ hr DAILY IV Last administered on 06/07/17 09: 21; Start 06/07/17 at 09:00; Stop 06/08/17 at 08:06; Status DC Lorazepam (Ativan) 2 mg PRN Q4HRS PRN IV ANXIETY / AGITATION; Start 06/06/17 at 15:45; Stop 06/12/17 at 10:16; Status DC Famotidine (Pepcid) 20 mg BID IVP Last administered on 06/08/17 11:18; Start 06/06/17 at 21:00; Stop 06/09/17 at 07:53; Status DC Morphine Sulfate 2 mg PRN Q2HR PRN IV PAIN Last administered on 06/10/17 22: 59; Start 06/06/17 at 15:45 Morphine Sulfate 4 mg PRN Q2HR PRN IV PAIN Last administered on 06/11/17 08: 31; Start 06/06/17 at 15:45 Ondansetron HCl (Zofran) 4 mg PRN Q6HRS PRN IV NAUSEA/VOMITING; Start 06/06/17 at 15:45; Stop 06/06/17 at 15:45; Status DC Fentanyl Citrate 30 ml @ 0 mls/hr CONT PRN IV PROTOCOL Last administered on 02:54; Start 06/06/17 at 17:30; Stop 06/07/17 at 10:39; Status DC Midazolam HCl 100 ml @ 0 mls/hr CONT PRN IV SEE I/O RECORD; Start 06/06/17 at 23:00; Stop 06/08/17 at 09:20; Status DC Sodium Chloride 1,000 ml @ 1,000 mls/hr 1X ONCE IV Last administered on 23:34; Start 06/06/17 at 23:00; Stop 06/06/17 at 23:59; Status DC Magnesium Sulfate/ Dextrose 50 ml @ 25 mls/hr 1X ONCE IV Last administered on 06/07/17 09:28; Start 06/07/17 at 08:15; Stop 06/07/17 at 10:14; Status DC Info 1 each PRN DAILY PRN MC SEE COMMENTS Last administered on 06/18/17 13:01 ; Start 06/07/17 at 09:30 Methylprednisolone Sodium Succinate (SOLU-Medrol 125MG VIAL) 50 mg DAILY IV Last administered on 06/12/17 08:47; Start 06/07/17 at 11:00; Stop 06/12/17 at 10:16; Status DC Hydromorphone HCl 30 ml @ 0 mls/hr CONT PRN PRN IV PROTOCOL Last administered on 06/07/17 11:16; Start 06/07/17 at 10:45; Stop 06/09/17 at 08:57; Status DC Sodium Chloride 90 meq/Potassium Chloride 50 meq/ Potassium Phosphate 13.6 mmol/ Magnesium Sulfate 10 meq/ Calcium Gluconate 10 meq/ Multivitamins 10 ml/Chromium / Copper/Manganese/ Seleni/Zn 1 ml/ Total Parenteral Nutrition/Amino Acids/ Dextrose/ Fat Emulsion Intravenous 1,512 ml @ 63 mls/hr TPN CONT IV Last administered on 06/07/17 22:04; Start 06/07/17 at 22:00; Stop 06/08/17 at 21 :59; Status DC Influenza Virus Vaccine Quadrival (Fluarix Quad [id number] Syringe) 0.5 ml ONCE ONCE VAX IM Last administered on 06/08/17 13:23; Start 06/07/17 at 16:15; Stop 06/07/17 at 16:35; Status DC Pneumococcal Polyvalent Vaccine (Do NOT chart on this placeholder) 1 each PRN 1X PRN MC SEE COMMENTS; Start 06/07/17 at 16:45; Status UNV Pneumococcal Polyvalent Vaccine (Pneumovax 23) 0.5 ml ONCE ONCE VAX IM Last administered on 06/08/17 13:25; Start 06/07/17 at 17:00; Stop 06/07/17 at 17 :01; Status DC Ceftriaxone Sodium 1 gm/ Sodium Chloride 50 ml @ 100 mls/hr Q24H IV Last administered on 06/12/17 08:45; Start 06/08/17 at 09:00; Stop 06/13/17 at 07 :45; Status DC Sodium Phosphate 20 mmol/Dextrose 256.6667 ml @ 64.167 m... 1X ONCE IV Last administered on 06/08/17 08:58; Start 06/08/17 at 09:00; Stop 06/08/17 at 12 :59; Status DC Multi-Ingred Cream/Lotion/Oil/ Oint (Artificial Tears Eye Oint) 1 juvenal PRN Q1HR PRN OU DRY EYE; Start 06/08/17 at 09:15 Sodium Chloride 90 meq/Potassium Chloride 40 meq/ Potassium Phosphate 17 mmol/ Magnesium Sulfate 10 meq/Calcium Gluconate 10 meq/ Multivitamins 10 ml/Chromium / Copper/Manganese/ Seleni/Zn 1 ml/ Total Parenteral Nutrition/Amino Acids/ Dextrose/ Fat Emulsion Intravenous 1,512 ml @ 63 mls/hr TPN CONT IV Last administered on 06/08/17 22:42; Start 06/08/17 at 22:00; Stop 06/09/17 at 21 :59; Status DC Diclofenac Sodium (Voltaren) 1 juvenal BID TP Last administered on 06/16/17 09:16 ; Start 06/08/17 at 21:00 Oxycodone/ Acetaminophen (Percocet 10/325) 1 tab PRN Q4HRS PRN PO pain Last administered on 06/15/17 08:48; Start 06/09/17 at 08:00; Stop 06/15/17 at 10 :39; Status DC Magnesium Sulfate/ Dextrose 50 ml @ 25 mls/hr 1X ONCE IV Last administered on 06/09/17 09:31; Start 06/09/17 at 08:00; Stop 06/09/17 at 09:59; Status DC Potassium Phosphate (K-Phos Original) 500 mg BID PO Last administered on 09:40; Start 06/09/17 at 09:00 Lidocaine (Lidoderm) 1 patch DAILY TD Last administered on 06/09/17 09:36; Start 06/09/17 at 09:00; Stop 06/10/17 at 20:50; Status DC Potassium Phosphate 13.6 mmol/Sodium Chloride 104.5333 ml @ 52.267 m... 1X ONCE IV Last administered on 06/09/17 13:51; Start 06/09/17 at 13:30; Stop 06/09/17 at 15:29; Status DC Sodium Chloride 40 meq/Sodium Acetate 50 meq/ Potassium Chloride 40 meq/ Potassium Phosphate 20 mmol/ Magnesium Sulfate 15 meq/Calcium Gluconate 10 meq/ Multivitamins 10 ml/Chromium/ Copper/Manganese/ Seleni/Zn 1 ml/ Total Parenteral Nutrition/Amino Acids/Dextrose/ Fat Emulsion Intravenous 1,512 ml @ 63 mls/hr TPN CONT IV Last administered on 06/09/17 22:11; Start 06/09/17 at 22:00; Stop 06/10/17 at 21:59; Status DC Potassium Chloride (Klor-Con) 40 meq 1X ONCE PO Last administered on 10:40; Start 06/10/17 at 09:30; Stop 06/10/17 at 09:31; Status DC Potassium Chloride (Klor-Con) 20 meq [id number] PO Last administered on 07:59; Start 06/11/17 at 08:00 Magnesium Sulfate/ Dextrose 50 ml @ 25 mls/hr 1X ONCE IV Last administered on 06/10/17 10:38; Start 06/10/17 at 10:00; Stop 06/10/17 at 11:59; Status DC Sodium Chloride 40 meq/Sodium Acetate 50 meq/ Potassium Acetate 60 meq/ Potassium Phosphate 18 mmol/ Magnesium Sulfate 18 meq/Calcium Gluconate 10 meq/ Multivitamins 10 ml/Chromium/ Copper/Manganese/ Seleni/Zn 1 ml/ Total Parenteral Nutrition/Amino Acids/Dextrose/ Fat Emulsion Intravenous 1,512 ml @ 63 mls/hr TPN CONT IV Last administered on 06/10/17 21:43; Start 06/10/17 at 22:00; Stop 06/11/17 at 22:00; Status DC Lidocaine (Lidoderm) 1 patch QHS TD Last administered on 06/10/17 21:37; Start 06/10/17 at 21:00; Stop 06/12/17 at 05:01; Status DC Magnesium Sulfate/ Dextrose 100 ml @ 25 mls/hr 1X ONCE IV Last administered on 06/11/17 11:22; Start 06/11/17 at 09:00; Stop 06/11/17 at 12:59; Status DC Lisinopril (Prinivil) 10 mg DAILY PO Last administered on 06/13/17 08:34; Start 06/11/17 at 13:00; Stop 06/13/17 at 09:19; Status DC Metoprolol Succinate (Toprol Xl) 100 mg DAILY PO Last administered on 09:40; Start 06/11/17 at 13:00 Hydrochlorothiazide (Hydrodiuril) 25 mg DAILY PO Last administered on 09:40; Start 06/11/17 at 13:00 Sodium Chloride 40 meq/Sodium Acetate 50 meq/ Potassium Acetate 60 meq/ Potassium Phosphate 18 mmol/ Magnesium Sulfate 18 meq/Calcium Gluconate 10 meq/ Multivitamins 10 ml/Chromium/ Copper/Manganese/ Seleni/Zn 1 ml/ Total Parenteral Nutrition/Amino Acids/Dextrose/ Fat Emulsion Intravenous 1,512 ml @ 63 mls/hr TPN CONT IV Last administered on 06/11/17 21:43; Start 06/11/17 at 22:00; Stop 06/12/17 at 21:59; Status DC Lidocaine (Lidoderm) 1 patch DAILY TD Last administered on 06/13/17 08:35; Start 06/12/17 at 09:00 Hydralazine HCl (Apresoline Inj) 10 mg PRN Q4HRS PRN IVP ELEVATED BP, SEE COMMENTS; Start 06/12/17 at 09:00 Magnesium Sulfate/ Dextrose 100 ml @ 25 mls/hr 1X ONCE IV Last administered on 06/12/17 09:53; Start 06/12/17 at 09:30; Stop 06/12/17 at 13:29; Status DC Magnesium Oxide (Magnesium Oxide) 400 mg DAILY PO Last administered on 09:39; Start 06/12/17 at 09:30 Lorazepam (Ativan) 1 mg PRN Q4HRS PRN IV ANXIETY / AGITATION; Start 06/12/17 at 10:15 Alprazolam (Xanax) 0.5 mg PRN Q8HRS PRN PO ANXIETY / AGITATION; Start at 10:15 Prednisone (Prednisone) 20 mg DAILY PO Last administered on 06/13/17 08:34; Start 06/13/17 at 09:00; Stop 06/13/17 at 15:06; Status DC Sodium Chloride 60 meq/Sodium Acetate 50 meq/ Potassium Acetate 60 meq/ Potassium Phosphate 18 mmol/ Magnesium Sulfate 27 meq/Calcium Gluconate 10 meq/ Multivitamins 10 ml/Chromium/ Copper/Manganese/ Seleni/Zn 1 ml/ Total Parenteral Nutrition/Amino Acids/Dextrose/ Fat Emulsion Intravenous 1,512 ml @ 63 mls/hr TPN CONT IV Last administered on 06/12/17 21:33; Start 06/12/17 at 22:00; Stop 06/13/17 at 21:59; Status DC Metronidazole (Flagyl) 500 mg Q12HR PO Last administered on 06/15/17 21:48; Start 06/13/17 at 09:00; Stop 06/16/17 at 09:05; Status DC Cefpodoxime Proxetil (Vantin) 200 mg BID PO Last administered on 06/15/17 21: 49; Start 06/13/17 at 09:00; Stop 06/16/17 at 09:05; Status DC Lisinopril (Prinivil) 20 mg DAILY PO Last administered on 06/19/17 09:41; Start 06/14/17 at 09:00 Lisinopril (Prinivil) 10 mg 1X ONCE PO ; Start 06/13/17 at 09:30; Stop at 09:31; Status DC Docusate Sodium (Colace) 100 mg BID PO Last administered on 06/19/17 09:40; Start 06/13/17 at 11:30 Sodium Chloride 60 meq/Sodium Acetate 50 meq/ Potassium Acetate 60 meq/ Potassium Phosphate 18 mmol/ Magnesium Sulfate 27 meq/Calcium Gluconate 10 meq/ Multivitamins 10 ml/Chromium/ Copper/Manganese/ Seleni/Zn 1 ml/ Total Parenteral Nutrition/Amino Acids/Dextrose/ Fat Emulsion Intravenous 1,512 ml @ 63 mls/hr TPN CONT IV Last administered on 06/13/17 22:31; Start 06/13/17 at 22:00; Stop 06/14/17 at 21:59; Status DC Lisinopril (Prinivil) 10 mg 1X ONCE PO Last administered on 06/13/17 16:18; Start 06/13/17 at 14:45; Stop 06/13/17 at 14:46; Status DC Polyethylene Glycol (miraLAX PACKET) 17 gm DAILY PO ; Start 06/14/17 at 09:30; Stop 06/14/17 at 11:47; Status DC Magnesium Hydroxide (Milk Of Magnesia) 2,400 mg PRN DAILY PRN PO CONSTIPATION; Start 06/14/17 at 09:30; Stop 06/14/17 at 11:47; Status DC Magnesium Hydroxide (Milk Of Magnesia) 2,400 mg 1X ONCE PO ; Start 06/14/17 at 09:30; Stop 06/14/17 at 09:31; Status Cancel Magnesium Sulfate/ Dextrose 100 ml @ 25 mls/hr 1X ONCE IV Last administered on 06/14/17 12:03; Start 06/14/17 at 10:00; Stop 06/14/17 at 13:59; Status DC Sodium Chloride 80 meq/Sodium Acetate 50 meq/ Potassium Acetate 60 meq/ Potassium Phosphate 18 mmol/ Magnesium Sulfate 27 meq/Calcium Gluconate 10 meq/ Multivitamins 10 ml/Chromium/ Copper/Manganese/ Seleni/Zn 1 ml/ Total Parenteral Nutrition/Amino Acids/Dextrose/ Fat Emulsion Intravenous 1,512 ml @ 63 mls/hr TPN CONT IV Last administered on 06/14/17 22:34; Start 06/14/17 at 22:00; Stop 06/15/17 at 21:59; Status DC Hydromorphone HCl (Dilaudid) 1 mg 1X ONCE IV Last administered on 06/14/17 15:47; Start 06/14/17 at 13:15; Stop 06/14/17 at 13:16; Status DC Iohexol (Omnipaque 300 Mg/ml) 75 ml 1X ONCE IV Last administered on 13:56; Start 06/14/17 at 13:30; Stop 06/14/17 at 13:31; Status DC Info (Do NOT chart on this entry -- for MONITORING) 1 each PRN DAILY PRN MC SEE COMMENTS; Start 06/14/17 at 13:15; Stop 06/16/17 at 13:14; Status DC Oxycodone/ Acetaminophen (Percocet 10/325) 1 tab Q4HRS PO Last administered on 06/19/17 08:02; Start 06/15/17 at 12:00 Sodium Chloride 80 meq/Sodium Acetate 50 meq/ Potassium Acetate 60 meq/ Potassium Phosphate 18 mmol/ Magnesium Sulfate 27 meq/Calcium Gluconate 10 meq/ Multivitamins 10 ml/Chromium/ Copper/Manganese/ Seleni/Zn 1 ml/ Total Parenteral Nutrition/Amino Acids/Dextrose/ Fat Emulsion Intravenous 1,512 ml @ 63 mls/hr TPN CONT IV Last administered on 06/15/17 22:14; Start 06/15/17 at 22:00; Stop 06/16/17 at 21:59; Status DC Meropenem 1 gm/ Sodium Chloride 100 ml @ 200 mls/hr Q8HRS IV Last administered on 06/19/17 05:54; Start 06/16/17 at 14:00 Vancomycin HCl (Vanco Per Pharmacy) 1 each PRN DAILY PRN MC SEE COMMENTS Last administered on 06/19/17 00:24; Start 06/16/17 at 09:00 Fluconazole/ Sodium Chloride 200 ml @ 100 mls/hr Q24H IV Last administered on 06/19/17 10:22; Start 06/16/17 at 10:00 Vancomycin HCl 2 gm/Dextrose 500 ml @ 250 mls/hr 1X ONCE IV Last administered on 06/16/17 11:57; Start 06/16/17 at 11:00; Stop 06/16/17 at 12 :59; Status DC Magnesium Sulfate/ Dextrose 50 ml @ 25 mls/hr 1X ONCE IV Last administered on 06/16/17 11:56; Start 06/16/17 at 10:30; Stop 06/16/17 at 12:30; Status DC Vancomycin HCl 1.25 gm/Dextrose 250 ml @ 167 mls/hr Q12H IV Last administered on 06/19/17 00:26; Start 06/17/17 at 00:00 Vancomycin HCl 1 each 1X ONCE MC Last administered on 06/18/17 23:30; Start 06/18/17 at 23:30; Stop 06/18/17 at 23:31; Status DC Sodium Chloride 80 meq/Sodium Acetate 50 meq/ Potassium Acetate 60 meq/ Potassium Phosphate 18 mmol/ Magnesium Sulfate 30 meq/Calcium Gluconate 10 meq/ Multivitamins 10 ml/Chromium/ Copper/Manganese/ Seleni/Zn 1 ml/ Total Parenteral Nutrition/Amino Acids/Dextrose/ Fat Emulsion Intravenous 1,512 ml @ 63 mls/hr TPN CONT IV Last administered on 06/16/17 22:03; Start 06/16/17 at 22:00; Stop 06/17/17 at 21:59; Status DC Lactobacillus Acidophilus (Bacid, Jenniffer-Bid) 1 tab BID PO Last administered on 06/19/17 09:40; Start 06/16/17 at 21:00; Stop 06/19/17 at 09:01; Status DC Magnesium Sulfate/ Dextrose 50 ml @ 25 mls/hr 1X ONCE IV Last administered on 06/17/17 10:00; Start 06/17/17 at 10:00; Stop 06/17/17 at 11:59; Status DC Sodium Chloride 80 meq/Sodium Acetate 50 meq/ Potassium Acetate 60 meq/ Potassium Phosphate 18 mmol/ Magnesium Sulfate 30 meq/Calcium Gluconate 10 meq/ Multivitamins 10 ml/Chromium/ Copper/Manganese/ Seleni/Zn 1 ml/ Total Parenteral Nutrition/Amino Acids/Dextrose/ Fat Emulsion Intravenous 1,512 ml @ 63 mls/hr TPN CONT IV Last administered on 06/17/17 22:00; Start 06/17/17 at 22:00; Stop 06/18/17 at 21:59; Status DC Sodium Chloride 95 meq/Sodium Acetate 50 meq/ Potassium Acetate 60 meq/ Potassium Phosphate 18 mmol/ Magnesium Sulfate 30 meq/Calcium Gluconate 10 meq/ Multivitamins 10 ml/Chromium/ Copper/Manganese/ Seleni/Zn 1 ml/ Total Parenteral Nutrition/Amino Acids/Dextrose/ Fat Emulsion Intravenous 1,512 ml @ 63 mls/hr TPN CONT IV Last administered on 06/18/17 22:06; Start 06/18/17 at 22:00; Stop 06/19/17 at 21:59 Lactobacillus Rhamnosus (Culturelle) 1 cap BID PO ; Start 06/19/17 at 21:00 Active Scripts Active Reported [prednisone taper] Metoprolol Succinate ( Xl ) (Metoprolol Succinate) 100 Mg Tab.er.24h 1 Tab PO DAILY Lisinopril 10 Mg Tablet 1 Tab PO DAILY Hydrochlorothiazide Tablet (Hydrochlorothiazide) 50 Mg Tablet 25 Tab PO DAILY Vitals/I & O Vital Sign - Last 24 Hours 06/18/17 06/18/17 06/18/17 06/18/17 11:00 12:15 15:00 16:00 Temp 97.0 100.0 97.0 100.0 Pulse 68 62 Resp 16 18 16 18 B/P (MAP) 96/51 (66) 121/60 (80) Pulse Ox 98 98 99 O2 Delivery Room Air Room Air Room Air Room Air 06/18/17 06/18/17 06/18/17 06/19/17 19:00 19:36 23:00 00:25 Temp 100.8 99.2 100.8 99.2 Pulse 78 73 Resp 16 18 18 18 B/P (MAP) 107/71 (83) 134/69 (90) Pulse Ox 94 99 94 94 O2 Delivery Room Air Room Air 06/19/17 06/19/17 06/19/17 06/19/17 03:00 04:02 08:00 08:02 Temp 98.8 98.8 Pulse 70 Resp 18 16 18 B/P (MAP) 113/59 (77) Pulse Ox 95 94 94 O2 Delivery Room Air Room Air Room Air 06/19/17 06/19/17 06/19/17 09:02 09:40 09:41 Pulse 70 70 Resp 18 B/P (MAP) 113/59 113/59 Pulse Ox 94 O2 Delivery Room Air TROY PASTOR MD Jun 19, 2017 11:00
--- NOTE | 2017-06-19 13:23 | PDOC ---
Infectious Disease Note Subjective Subjective Remains on TPN Pain controlled at the moment Persistent fevers ROS ROS GEN: Denies chills, sweats CV: Denies chest pain RESP: Denies shortness of air, cough GI: Denies n/v Vital Sign Vital Signs Vital Signs Date Time Temp Pulse Resp B/P (MAP) Pulse Ox O2 Delivery O2 Flow Rate FiO2 06/19/17 12:46 18 94 Room Air 06/19/17 09:41 70 113/59 06/19/17 07:00 98.6 98.6 06/18/17 08:02 2.0 Physical Exam PHYSICAL EXAM GENERAL: Sitting on the side of the bed, NAD LUNGS: Clear HEART: S1S2, no gallop, no murmur ABD: Soft, NT to light palpation, drain intact, midline incision approx/stables , mildly erythema w/ drainage on dressing, ostomy + output, small amount; small wound below ostomy. 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 clean Labs Lab Laboratory Tests Test 06/18/17 16:32 06/18/17 20:44 06/18/17 23:20 06/19/17 04:35 Glucose (Fingerstick) 105 mg/dL (70-99) 144 mg/dL (70-99) Vancomycin Level Trough 17.5 mcg/mL (10.0-20.0) Vancomycin Last Dose Date Vancomycin Last Dose Time White Blood Count 9.7 x10^3/uL (4.0-11.0) Red Blood Count 2.64 x10^6/uL (4.30-5.70) Hemoglobin 7.7 g/dL (13.0-17.5) Hematocrit 22.6 % (39.0-53.0) Mean Corpuscular Volume 86 fL (79-100) Mean Corpuscular Hemoglobin 29 pg (25-35) Mean Corpuscular Hemoglobin Concent 34 g/dL (31-37) Red Cell Distribution Width 14.0 % (11.5-14.5) Platelet Count 589 x10^3/uL (140-400) Neutrophils (%) (Auto) 66 % (31-73) Lymphocytes (%) (Auto) 15 % (24-48) Monocytes (%) (Auto) 15 % (0-9) Eosinophils (%) (Auto) 4 % (0-3) Basophils (%) (Auto) 1 % (0-3) Neutrophils # (Auto) 6.4 x10^3uL (1.8-7.7) Lymphocytes # (Auto) 1.4 x10^3/uL (1.0-4.8) Monocytes # (Auto) 1.5 x10^3/uL (0.0-1.1) Eosinophils # (Auto) 0.4 x10^3/uL (0.0-0.7) Basophils # (Auto) 0.1 x10^3/uL (0.0-0.2) Sodium Level 134 mmol/L (136-145) Potassium Level 4.2 mmol/L (3.5-5.1) Chloride Level 100 mmol/L (98-107) Carbon Dioxide Level 30 mmol/L (21-32) Anion Gap 4 (6-14) Blood Urea Nitrogen 16 mg/dL (8-26) Creatinine 1.0 mg/dL (0.7-1.3) Estimated GFR (Cockcroft-Gault) 74.8 Glucose Level 87 mg/dL (70-99) Calcium Level 8.4 mg/dL (8.5-10.1) Test 06/19/17 08:25 Glucose (Fingerstick) 117 mg/dL (70-99) Micro BLOOD CULTURE Preliminary NO GROWTH AFTER 3 DAY Objective Assessment Fever Perforated viscus with fecal peritonitis, E. 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 Abdominal pain, better Respiratory failure - some RLL consolidation Chronic back pain HTN Leukocytosis, ? steroids- off now- trending down Anemia Plan Plan of Care vanc, Meropenem & Fluconazole monitor incision and temp repeat BC f/u am labs Supportive care Patient see and examined. Chart reviewed in detail. Case discussed with PRISON GUARD. Agree with above plan. JUICE MADRIGAL APRN Jun 19, 2017 13:23 YVETTE GOYAL MD Jun 19, 2017 17:31
[2017-06-19] MEDS: TPN PER PHARMACY MC PRN (13:27)
[2017-06-19] MEDS ORDERED: AMINO ACIDS IV SCH ×11 (22:00)
[2017-06-19] MEDS ORDERED: TOTAL PARENTERAL NUTRITION IV SCH ×11 (22:00)
[2017-06-19] MEDS ORDERED: [UNRECOGNIZED DRUG - OTHER] IV SCH ×11 (22:00)
[2017-06-19] MEDS ORDERED: DEXTROSE 70% IV SCH ×11 (22:00)
[2017-06-19] MEDS: LACTOBACILLUS RHAMNOSUS GG 1 CAPSULE. PO SCH (22:18)
[2017-06-20] MEDS: VANCOMYCIN 1.25 GM in IV DEXTROSE 5% 250 ML IV SCH ×2 (00:22→12:29)
[2017-06-20 03:00] VITALS: BP 139/89
[2017-06-20] MEDS: oxyCODONE/APAP 10/325 1 TAB TABLET PO SCH ×5 (04:46→20:08)
[2017-06-20] MEDS: MEROPENEM 1 GM in IV NORMAL SALINE 100ML 100 ML IV SCH ×3 (05:00→22:26)
[2017-06-20 05:13] LABS: BASO # 0.1 x10^3/uL (0.0-0.2); BASO % 1 % (0-3); EOS % 5 % (0-3); HEMATOCRIT 24.1 % (39.0-53.0); HEMOGLOBIN 8.1 g/dL (13.0-17.5); LYMPH % 12 % (24-48); MEAN CORPUSCULAR HEMOGLOBIN 29 pg (25-35); MEAN CORPUSCULAR HGB CONC 34 g/dL (31-37); MEAN CORPUSCULAR VOLUME 85 fL (79-100); MONO % 13 % (0-9); NEUT % 68 % (31-73); PLATELET COUNT 495 x10^3/uL (140-400); RED BLOOD COUNT 2.82 x10^6/uL (4.30-5.70); RED CELL DISTRIBUTION WIDTH 13.6 % (11.5-14.5); WHITE BLOOD COUNT 8.6 x10^3/uL (4.0-11.0)
[2017-06-20 05:50] LABS: CALCIUM 8.2 mg/dL (8.5-10.1); GFR 74.8
[2017-06-20 07:00] VITALS: BP 151/91
[2017-06-20] MEDS: MAGNESIUM OXIDE 400 MG TABLET PO SCH (08:50)
[2017-06-20] MEDS: POTASSIUM PHOSPHATE,MONOBASIC 500 MG TABLET. PO SCH ×2 (08:51→20:07)
[2017-06-20] MEDS: METOPROLOL SUCC 24HR ER 100 MG TAB.ER.24H. PO SCH (08:52)
[2017-06-20] MEDS: hydroCHLOROthiazide 25 MG TABLET PO SCH (08:52)
[2017-06-20] MEDS: LISINOPRIL 20 MG TABLET PO SCH (08:53)
[2017-06-20] MEDS: DOCUSATE SODIUM 100 MG CAPSULE. PO SCH ×2 (08:53→20:07)
[2017-06-20] MEDS: POTASSIUM CHLORIDE 20 MEQ TABLET.ER. PO SCH (08:57)
[2017-06-20] MEDS: LIDOCAINE (700MG/PATCH) PATCH. TD SCH (08:58)
[2017-06-20] MEDS: DICLOFENAC SODIUM 1% TOPICAL GEL 100GM TUBE. TP SCH ×2 (08:59→20:08)
--- NOTE | 2017-06-20 09:03 | PDOC ---
Infectious Disease Note Subjective Subjective Remains on TPN Pain controlled at the moment Feels well this am ROS ROS GEN: Denies fevers, chills, sweats HEENT: Denies blurred vision, sore throat CV: Denies chest pain RESP: Denies shortness of air, cough GI: Denies n/v/d. Output picking up but a little distended NEURO: Denies confusion, dizziness MSK: Denies weakness, joint pain/swelling Vital Sign Vital Signs Vital Signs Date Time Temp Pulse Resp B/P (MAP) Pulse Ox O2 Delivery O2 Flow Rate FiO2 06/20/17 08:53 70 157/91 06/20/17 08:50 Room Air 06/20/17 07:00 98.0 18 94 98.0 Physical Exam PHYSICAL EXAM GENERAL: NAD, Alert HEENT: PERRL, OC/OP- tongue with coating NECK: Supple, no JVD, no LN LUNGS: Clear HEART: S1S2, no gallop, no murmur ABD: Soft, NT, mild distension. 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, no focal neurologic deficit SKIN: No rash IV: PICC clean Labs Lab Laboratory Tests Test 06/19/17 11:30 06/19/17 15:27 06/19/17 20:34 06/20/17 05:06 Glucose (Fingerstick) 113 mg/dL (70-99) 129 mg/dL (70-99) 130 mg/dL (70-99) White Blood Count 8.6 x10^3/uL (4.0-11.0) Red Blood Count 2.82 x10^6/uL (4.30-5.70) Hemoglobin 8.1 g/dL (13.0-17.5) Hematocrit 24.1 % (39.0-53.0) Mean Corpuscular Volume 85 fL (79-100) Mean Corpuscular Hemoglobin 29 pg (25-35) Mean Corpuscular Hemoglobin Concent 34 g/dL (31-37) Red Cell Distribution Width 13.6 % (11.5-14.5) Platelet Count 495 x10^3/uL (140-400) Neutrophils (%) (Auto) 68 % (31-73) Lymphocytes (%) (Auto) 12 % (24-48) Monocytes (%) (Auto) 13 % (0-9) Eosinophils (%) (Auto) 5 % (0-3) Basophils (%) (Auto) 1 % (0-3) Neutrophils # (Auto) 5.8 x10^3uL (1.8-7.7) Lymphocytes # (Auto) 1.0 x10^3/uL (1.0-4.8) Monocytes # (Auto) 1.1 x10^3/uL (0.0-1.1) Eosinophils # (Auto) 0.5 x10^3/uL (0.0-0.7) Basophils # (Auto) 0.1 x10^3/uL (0.0-0.2) Sodium Level 134 mmol/L (136-145) Potassium Level 4.0 mmol/L (3.5-5.1) Chloride Level 99 mmol/L (98-107) Carbon Dioxide Level 29 mmol/L (21-32) Anion Gap 6 (6-14) Blood Urea Nitrogen 16 mg/dL (8-26) Creatinine 1.0 mg/dL (0.7-1.3) Estimated GFR (Cockcroft-Gault) 74.8 Glucose Level 96 mg/dL (70-99) Calcium Level 8.2 mg/dL (8.5-10.1) Albumin 1.6 g/dL (3.4-5.0) Test 06/20/17 07:26 Glucose (Fingerstick) 117 mg/dL (70-99) Micro CT abd 06/14 Impression: 1. Expected postoperative findings of partial colectomy and diverting colostomy. Small amount of gas within the abdomen is decreased from prior study, may be related to the remaining surgical drain. 2. No acute intra-abdominal findings. 3. Right lower lobe consolidation with air bronchograms concerning for pneumonia. Small right and trace left pleural effusion. Objective Assessment Fever - improving Perforated viscus with fecal peritonitis, E. coli & Prevotella spp. 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 S/p [address] improved Abdominal pain, better Respiratory failure - better - some RLL consolidation most recent CT with atelectasis/infiltrate Chronic back pain HTN Leukocytosis, ? steroids - off steroids 06/13. better Plan Plan of Care vanc, Meropenem & Fluconazole wean soon monitor incision and temp repeat BC f/u am labs Supportive care THALIA MORALES MD Jun 20, 2017 09:03
[2017-06-20 09:05] LABS: NEG OBC FOB NEG; POS OBC FOB POS
--- NOTE | 2017-06-20 09:24 | PDOC ---
MINA LYNCH MATERIAL MAN 06/20/17 0924: SURGICAL PROGRESS NOTE Subjective tolerating diet pain managed Vital Signs Vital Signs Date Time Temp Pulse Resp B/P (MAP) Pulse Ox O2 Delivery O2 Flow Rate FiO2 06/20/17 08:53 70 157/91 06/20/17 08:50 Room Air 06/20/17 07:00 98.0 18 94 98.0 General: Alert, Oriented X3, Cooperative, No acute distress Abdomen: Soft, Other (mildly distended, ostomy, small amount hayes drainage, incision, some drainage, small amount of erythmea, scant GONZALES drainage) Labs Laboratory Tests Test 06/18/17 12:04 06/18/17 16:32 06/18/17 20:44 06/18/17 23:20 Glucose (Fingerstick) 131 mg/dL (70-99) 105 mg/dL (70-99) 144 mg/dL (70-99) Vancomycin Level Trough 17.5 mcg/mL (10.0-20.0) Vancomycin Last Dose Date Vancomycin Last Dose Time Test 06/19/17 04:35 06/19/17 08:25 06/19/17 11:30 06/19/17 15:27 White Blood Count 9.7 x10^3/uL (4.0-11.0) Red Blood Count 2.64 x10^6/uL (4.30-5.70) Hemoglobin 7.7 g/dL (13.0-17.5) Hematocrit 22.6 % (39.0-53.0) Mean Corpuscular Volume 86 fL (79-100) Mean Corpuscular Hemoglobin 29 pg (25-35) Mean Corpuscular Hemoglobin Concent 34 g/dL (31-37) Red Cell Distribution Width 14.0 % (11.5-14.5) Platelet Count 589 x10^3/uL (140-400) Neutrophils (%) (Auto) 66 % (31-73) Lymphocytes (%) (Auto) 15 % (24-48) Monocytes (%) (Auto) 15 % (0-9) Eosinophils (%) (Auto) 4 % (0-3) Basophils (%) (Auto) 1 % (0-3) Neutrophils # (Auto) 6.4 x10^3uL (1.8-7.7) Lymphocytes # (Auto) 1.4 x10^3/uL (1.0-4.8) Monocytes # (Auto) 1.5 x10^3/uL (0.0-1.1) Eosinophils # (Auto) 0.4 x10^3/uL (0.0-0.7) Basophils # (Auto) 0.1 x10^3/uL (0.0-0.2) Sodium Level 134 mmol/L (136-145) Potassium Level 4.2 mmol/L (3.5-5.1) Chloride Level 100 mmol/L (98-107) Carbon Dioxide Level 30 mmol/L (21-32) Anion Gap 4 (6-14) Blood Urea Nitrogen 16 mg/dL (8-26) Creatinine 1.0 mg/dL (0.7-1.3) Estimated GFR (Cockcroft-Gault) 74.8 Glucose Level 87 mg/dL (70-99) Calcium Level 8.4 mg/dL (8.5-10.1) Glucose (Fingerstick) 117 mg/dL (70-99) 113 mg/dL (70-99) 129 mg/dL (70-99) Test 06/19/17 20:34 06/20/17 05:06 06/20/17 07:26 06/20/17 08:45 Glucose (Fingerstick) 130 mg/dL (70-99) 117 mg/dL (70-99) White Blood Count 8.6 x10^3/uL (4.0-11.0) Red Blood Count 2.82 x10^6/uL (4.30-5.70) Hemoglobin 8.1 g/dL (13.0-17.5) Hematocrit 24.1 % (39.0-53.0) Mean Corpuscular Volume 85 fL (79-100) Mean Corpuscular Hemoglobin 29 pg (25-35) Mean Corpuscular Hemoglobin Concent 34 g/dL (31-37) Red Cell Distribution Width 13.6 % (11.5-14.5) Platelet Count 495 x10^3/uL (140-400) Neutrophils (%) (Auto) 68 % (31-73) Lymphocytes (%) (Auto) 12 % (24-48) Monocytes (%) (Auto) 13 % (0-9) Eosinophils (%) (Auto) 5 % (0-3) Basophils (%) (Auto) 1 % (0-3) Neutrophils # (Auto) 5.8 x10^3uL (1.8-7.7) Lymphocytes # (Auto) 1.0 x10^3/uL (1.0-4.8) Monocytes # (Auto) 1.1 x10^3/uL (0.0-1.1) Eosinophils # (Auto) 0.5 x10^3/uL (0.0-0.7) Basophils # (Auto) 0.1 x10^3/uL (0.0-0.2) Sodium Level 134 mmol/L (136-145) Potassium Level 4.0 mmol/L (3.5-5.1) Chloride Level 99 mmol/L (98-107) Carbon Dioxide Level 29 mmol/L (21-32) Anion Gap 6 (6-14) Blood Urea Nitrogen 16 mg/dL (8-26) Creatinine 1.0 mg/dL (0.7-1.3) Estimated GFR (Cockcroft-Gault) 74.8 Glucose Level 96 mg/dL (70-99) Calcium Level 8.2 mg/dL (8.5-10.1) Albumin 1.6 g/dL (3.4-5.0) Stool Occult Blood Positive (NEG) Laboratory Tests Test 06/19/17 11:30 06/19/17 15:27 06/19/17 20:34 06/20/17 05:06 Glucose (Fingerstick) 113 mg/dL (70-99) 129 mg/dL (70-99) 130 mg/dL (70-99) White Blood Count 8.6 x10^3/uL (4.0-11.0) Red Blood Count 2.82 x10^6/uL (4.30-5.70) Hemoglobin 8.1 g/dL (13.0-17.5) Hematocrit 24.1 % (39.0-53.0) Mean Corpuscular Volume 85 fL (79-100) Mean Corpuscular Hemoglobin 29 pg (25-35) Mean Corpuscular Hemoglobin Concent 34 g/dL (31-37) Red Cell Distribution Width 13.6 % (11.5-14.5) Platelet Count 495 x10^3/uL (140-400) Neutrophils (%) (Auto) 68 % (31-73) Lymphocytes (%) (Auto) 12 % (24-48) Monocytes (%) (Auto) 13 % (0-9) Eosinophils (%) (Auto) 5 % (0-3) Basophils (%) (Auto) 1 % (0-3) Neutrophils # (Auto) 5.8 x10^3uL (1.8-7.7) Lymphocytes # (Auto) 1.0 x10^3/uL (1.0-4.8) Monocytes # (Auto) 1.1 x10^3/uL (0.0-1.1) Eosinophils # (Auto) 0.5 x10^3/uL (0.0-0.7) Basophils # (Auto) 0.1 x10^3/uL (0.0-0.2) Sodium Level 134 mmol/L (136-145) Potassium Level 4.0 mmol/L (3.5-5.1) Chloride Level 99 mmol/L (98-107) Carbon Dioxide Level 29 mmol/L (21-32) Anion Gap 6 (6-14) Blood Urea Nitrogen 16 mg/dL (8-26) Creatinine 1.0 mg/dL (0.7-1.3) Estimated GFR (Cockcroft-Gault) 74.8 Glucose Level 96 mg/dL (70-99) Calcium Level 8.2 mg/dL (8.5-10.1) Albumin 1.6 g/dL (3.4-5.0) Test 06/20/17 07:26 06/20/17 08:45 Glucose (Fingerstick) 117 mg/dL (70-99) Stool Occult Blood Positive (NEG) Problem List Problems Medical Problems: (1) Abdominal pain Status: Acute (2) Elevated brain natriuretic peptide (BNP) level Status: Acute (3) Hypomagnesemia Status: Acute (4) Perforated abdominal viscus Status: Acute Assessment/Plan stable watch wound Problems: MARY MARTINEZ MD 06/20/17 1216: SURGICAL PROGRESS NOTE Assessment/Plan pt seen one staple removed above umbilicus and culture swab taken from upper incision taper TPN advance diet GONZALES drain removed Problems: MINA LYNCH MATERIAL MAN Jun 20, 2017 09:24 MARY MARTINEZ MD Jun 20, 2017 12:16
[2017-06-20] MEDS: LACTOBACILLUS RHAMNOSUS GG 1 CAPSULE. PO SCH ×2 (10:38→20:07)
[2017-06-20] MEDS: CHLORHEXIDINE 0.12% 15 ML MOUTHWASH. SWSP SCH ×2 (10:39→20:07)
[2017-06-20] MEDS: FLUCONAZOLE 400MG/200ML PREMIX 200 ML IV SCH (10:39)
[2017-06-20 11:00] VITALS: BP 103/49
--- NOTE | 2017-06-20 13:05 | PDOC ---
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 sepsis with peritonitis Persistent hypomagnesemia HTN HLD NEW onset afib with RVR, sinus now hypokalemia, corrected Elcoholism, hx DESTINEE, dehydration, vasomotor mild malnutrition HYPophosphatemia, corrected Acute on chronic sciatica OCD, but no home meds listed anemia, chronic dz, iron deficiency plan: fu with id, sx back to meropenum, vanco with ID on 06/16 CXR repeated 06/16 not significant on full liquid, advance to gi soft dc TPN pain control, off [employer]ER replete Mag likely depressed gi, dvt ppx on HTN meds PTOT check anemia panel, add iron po daily repeated BCX 06/16 neg GONZALES remove by sx 06/20 History of Present Illness History of Present Illness ROS: no chills, sob or chest pain T 99.9 had some solid stool in colostomy still has abd pain a lot, but able to walk well WBC normal x3ds Vitals Vitals Vital Signs Date Time Temp Pulse Resp B/P (MAP) Pulse Ox O2 Delivery O2 Flow Rate FiO2 06/20/17 12:29 Room Air 06/20/17 11:00 98.2 68 18 103/49 (67) 98 98.2 Physical Exam Physical Exam General: Alert, Oriented X3, Cooperative, No acute distress Heart: Regular rate, Normal S1, Normal S2, No murmurs Lungs: Clear Abdomen: Soft, Other ( colostomy, small amount hayes drainage, incision, some drainage, small amount of erythmea, scant GONZALES drainage) Extremities: No edema, Normal pulses Skin: No rashes, No breakdown Labs LABS Laboratory Tests Test 06/19/17 15:27 06/19/17 20:34 06/20/17 05:06 06/20/17 07:26 Glucose (Fingerstick) 129 mg/dL (70-99) 130 mg/dL (70-99) 117 mg/dL (70-99) White Blood Count 8.6 x10^3/uL (4.0-11.0) Red Blood Count 2.82 x10^6/uL (4.30-5.70) Hemoglobin 8.1 g/dL (13.0-17.5) Hematocrit 24.1 % (39.0-53.0) Mean Corpuscular Volume 85 fL (79-100) Mean Corpuscular Hemoglobin 29 pg (25-35) Mean Corpuscular Hemoglobin Concent 34 g/dL (31-37) Red Cell Distribution Width 13.6 % (11.5-14.5) Platelet Count 495 x10^3/uL (140-400) Neutrophils (%) (Auto) 68 % (31-73) Lymphocytes (%) (Auto) 12 % (24-48) Monocytes (%) (Auto) 13 % (0-9) Eosinophils (%) (Auto) 5 % (0-3) Basophils (%) (Auto) 1 % (0-3) Neutrophils # (Auto) 5.8 x10^3uL (1.8-7.7) Lymphocytes # (Auto) 1.0 x10^3/uL (1.0-4.8) Monocytes # (Auto) 1.1 x10^3/uL (0.0-1.1) Eosinophils # (Auto) 0.5 x10^3/uL (0.0-0.7) Basophils # (Auto) 0.1 x10^3/uL (0.0-0.2) Sodium Level 134 mmol/L (136-145) Potassium Level 4.0 mmol/L (3.5-5.1) Chloride Level 99 mmol/L (98-107) Carbon Dioxide Level 29 mmol/L (21-32) Anion Gap 6 (6-14) Blood Urea Nitrogen 16 mg/dL (8-26) Creatinine 1.0 mg/dL (0.7-1.3) Estimated GFR (Cockcroft-Gault) 74.8 Glucose Level 96 mg/dL (70-99) Calcium Level 8.2 mg/dL (8.5-10.1) Albumin 1.6 g/dL (3.4-5.0) Test 06/20/17 08:45 06/20/17 11:40 Stool Occult Blood Positive (NEG) Glucose (Fingerstick) 119 mg/dL (70-99) Assessment and Plan Assessmemt and Plan Problems Medical Problems: (1) Abdominal pain Status: Acute (2) Elevated brain natriuretic peptide (BNP) level Status: Acute (3) Hypomagnesemia Status: Acute (4) Perforated abdominal viscus Status: Acute Problems: Comment Review of Relevant I have reviewed the following items ananda (where applicable) has been applied. Labs Laboratory Tests Test 06/18/17 16:32 06/18/17 20:44 06/18/17 23:20 06/19/17 04:35 Glucose (Fingerstick) 105 mg/dL (70-99) 144 mg/dL (70-99) Vancomycin Level Trough 17.5 mcg/mL (10.0-20.0) Vancomycin Last Dose Date Vancomycin Last Dose Time White Blood Count 9.7 x10^3/uL (4.0-11.0) Red Blood Count 2.64 x10^6/uL (4.30-5.70) Hemoglobin 7.7 g/dL (13.0-17.5) Hematocrit 22.6 % (39.0-53.0) Mean Corpuscular Volume 86 fL (79-100) Mean Corpuscular Hemoglobin 29 pg (25-35) Mean Corpuscular Hemoglobin Concent 34 g/dL (31-37) Red Cell Distribution Width 14.0 % (11.5-14.5) Platelet Count 589 x10^3/uL (140-400) Neutrophils (%) (Auto) 66 % (31-73) Lymphocytes (%) (Auto) 15 % (24-48) Monocytes (%) (Auto) 15 % (0-9) Eosinophils (%) (Auto) 4 % (0-3) Basophils (%) (Auto) 1 % (0-3) Neutrophils # (Auto) 6.4 x10^3uL (1.8-7.7) Lymphocytes # (Auto) 1.4 x10^3/uL (1.0-4.8) Monocytes # (Auto) 1.5 x10^3/uL (0.0-1.1) Eosinophils # (Auto) 0.4 x10^3/uL (0.0-0.7) Basophils # (Auto) 0.1 x10^3/uL (0.0-0.2) Sodium Level 134 mmol/L (136-145) Potassium Level 4.2 mmol/L (3.5-5.1) Chloride Level 100 mmol/L (98-107) Carbon Dioxide Level 30 mmol/L (21-32) Anion Gap 4 (6-14) Blood Urea Nitrogen 16 mg/dL (8-26) Creatinine 1.0 mg/dL (0.7-1.3) Estimated GFR (Cockcroft-Gault) 74.8 Glucose Level 87 mg/dL (70-99) Calcium Level 8.4 mg/dL (8.5-10.1) Test 06/19/17 08:25 06/19/17 11:30 06/19/17 15:27 06/19/17 20:34 Glucose (Fingerstick) 117 mg/dL (70-99) 113 mg/dL (70-99) 129 mg/dL (70-99) 130 mg/dL (70-99) Test 06/20/17 05:06 06/20/17 07:26 06/20/17 08:45 06/20/17 11:40 White Blood Count 8.6 x10^3/uL (4.0-11.0) Red Blood Count 2.82 x10^6/uL (4.30-5.70) Hemoglobin 8.1 g/dL (13.0-17.5) Hematocrit 24.1 % (39.0-53.0) Mean Corpuscular Volume 85 fL (79-100) Mean Corpuscular Hemoglobin 29 pg (25-35) Mean Corpuscular Hemoglobin Concent 34 g/dL (31-37) Red Cell Distribution Width 13.6 % (11.5-14.5) Platelet Count 495 x10^3/uL (140-400) Neutrophils (%) (Auto) 68 % (31-73) Lymphocytes (%) (Auto) 12 % (24-48) Monocytes (%) (Auto) 13 % (0-9) Eosinophils (%) (Auto) 5 % (0-3) Basophils (%) (Auto) 1 % (0-3) Neutrophils # (Auto) 5.8 x10^3uL (1.8-7.7) Lymphocytes # (Auto) 1.0 x10^3/uL (1.0-4.8) Monocytes # (Auto) 1.1 x10^3/uL (0.0-1.1) Eosinophils # (Auto) 0.5 x10^3/uL (0.0-0.7) Basophils # (Auto) 0.1 x10^3/uL (0.0-0.2) Sodium Level 134 mmol/L (136-145) Potassium Level 4.0 mmol/L (3.5-5.1) Chloride Level 99 mmol/L (98-107) Carbon Dioxide Level 29 mmol/L (21-32) Anion Gap 6 (6-14) Blood Urea Nitrogen 16 mg/dL (8-26) Creatinine 1.0 mg/dL (0.7-1.3) Estimated GFR (Cockcroft-Gault) 74.8 Glucose Level 96 mg/dL (70-99) Calcium Level 8.2 mg/dL (8.5-10.1) Albumin 1.6 g/dL (3.4-5.0) Glucose (Fingerstick) 117 mg/dL (70-99) 119 mg/dL (70-99) Stool Occult Blood Positive (NEG) Laboratory Tests Test 06/19/17 15:27 06/19/17 20:34 06/20/17 05:06 06/20/17 07:26 Glucose (Fingerstick) 129 mg/dL (70-99) 130 mg/dL (70-99) 117 mg/dL (70-99) White Blood Count 8.6 x10^3/uL (4.0-11.0) Red Blood Count 2.82 x10^6/uL (4.30-5.70) Hemoglobin 8.1 g/dL (13.0-17.5) Hematocrit 24.1 % (39.0-53.0) Mean Corpuscular Volume 85 fL (79-100) Mean Corpuscular Hemoglobin 29 pg (25-35) Mean Corpuscular Hemoglobin Concent 34 g/dL (31-37) Red Cell Distribution Width 13.6 % (11.5-14.5) Platelet Count 495 x10^3/uL (140-400) Neutrophils (%) (Auto) 68 % (31-73) Lymphocytes (%) (Auto) 12 % (24-48) Monocytes (%) (Auto) 13 % (0-9) Eosinophils (%) (Auto) 5 % (0-3) Basophils (%) (Auto) 1 % (0-3) Neutrophils # (Auto) 5.8 x10^3uL (1.8-7.7) Lymphocytes # (Auto) 1.0 x10^3/uL (1.0-4.8) Monocytes # (Auto) 1.1 x10^3/uL (0.0-1.1) Eosinophils # (Auto) 0.5 x10^3/uL (0.0-0.7) Basophils # (Auto) 0.1 x10^3/uL (0.0-0.2) Sodium Level 134 mmol/L (136-145) Potassium Level 4.0 mmol/L (3.5-5.1) Chloride Level 99 mmol/L (98-107) Carbon Dioxide Level 29 mmol/L (21-32) Anion Gap 6 (6-14) Blood Urea Nitrogen 16 mg/dL (8-26) Creatinine 1.0 mg/dL (0.7-1.3) Estimated GFR (Cockcroft-Gault) 74.8 Glucose Level 96 mg/dL (70-99) Calcium Level 8.2 mg/dL (8.5-10.1) Albumin 1.6 g/dL (3.4-5.0) Test 06/20/17 08:45 06/20/17 11:40 Stool Occult Blood Positive (NEG) Glucose (Fingerstick) 119 mg/dL (70-99) Microbiology 06/16/17 Blood Culture - Preliminary, Resulted NO GROWTH AFTER 4 DAYS 06/06/17 Anaerobic/Aerobic Culture - Final, Complete 06/06/17 Anaerobic Culture Result 1 (AISSATOU) - Final, Complete 06/06/17 Anaerobic Culture Result 2 (AISSATOU) - Final, Complete 06/06/17 Aerobic Culture - Final, Complete 06/06/17 Aerobic Culture Result 1 (AISSATOU) - Final, Complete 06/06/17 Aerobic Culture Result 2 (AISSATOU) - Final, Complete 06/06/17 Antimicrobic Susceptibility - Final, Complete Medications Current Medications Sodium Chloride 1,000 ml @ 1,000 mls/hr 1X ONCE IV Last administered on 08:22; Start 06/06/17 at 08:30; Stop 06/06/17 at 09:29; Status DC Ondansetron HCl (Zofran) 8 mg 1X ONCE IV Last administered on 06/06/17 08:23 ; Start 06/06/17 at 08:30; Stop 06/06/17 at 08:31; Status DC Morphine Sulfate 5 mg 1X ONCE IV Last administered on 06/06/17 08:29; Start 06/06/17 at 08:30; Stop 06/06/17 at 08:31; Status DC Potassium Chloride (Klor-Con) 40 meq 1X ONCE PO Last administered on 09:31; Start 06/06/17 at 08:30; Stop 06/06/17 at 08:31; Status DC Potassium Chloride/Sodium Chloride 1,000 ml @ 250 mls/hr 1X ONCE IV Last administered on 06/06/17 09:36; Start 06/06/17 at 08:30; Stop 06/06/17 at 12:29 ; Status DC Iohexol (Omnipaque 300 Mg/ml) 60 ml 1X ONCE IV Last administered on 06/06/17 08:51; Start 06/06/17 at 08:45; Stop 06/06/17 at 08:46; Status DC Magnesium Oxide (Magnesium Oxide) 800 mg 1X STAT PO Last administered on 09:31; Start 06/06/17 at 08:37; Stop 06/06/17 at 08:40; Status DC Info (Do NOT chart on this entry -- for MONITORING) 1 each PRN DAILY PRN MC SEE COMMENTS; Start 06/06/17 at 08:45; Stop 06/08/17 at 08:44; Status DC Metronidazole 100 ml @ 100 mls/hr 1X ONCE IV Last administered on 06/06/17 10:00; Start 06/06/17 at 09:30; Stop 06/06/17 at 10:29; Status DC Levofloxacin/ Dextrose (Levaquin Per Pharmacy) 1 each PRN DAILY PRN MC SEE COMMENTS; Start 06/06/17 at 09:30; Stop 06/08/17 at 09:20; Status DC Levofloxacin/ Dextrose 100 ml @ 100 mls/hr 1X ONCE IV ; Start 06/06/17 at 09: 30; Stop 06/06/17 at 10:29; Status DC Levofloxacin/ Dextrose 100 ml @ 100 mls/hr Q24H IV Last administered on 11:36; Start 06/07/17 at 10:00; Stop 06/08/17 at 08:03; Status DC Rocuronium [place] (Zemuron) 100 mg STK-MED ONCE .ROUTE ; Start 06/06/17 at 10: 28; Stop 06/06/17 at 10:29; Status DC Fentanyl Citrate (Fentanyl 5ml Vial) 250 mcg STK-MED ONCE .ROUTE ; Start at 10:28; Stop 06/06/17 at 10:29; Status DC Propofol 20 ml @ As Directed STK-MED ONCE IV ; Start 06/06/17 at 10:32; Stop at 10:33; Status DC Lidocaine HCl (Lidocaine Pf 2% Vial) 5 ml STK-MED ONCE .ROUTE ; Start 06/06/17 at 10:32; Stop 06/06/17 at 10:33; Status DC Ondansetron HCl (Zofran) 4 mg STK-MED ONCE .ROUTE ; Start 06/06/17 at 10:33; Stop 06/06/17 at 10:34; Status DC Dexamethasone Sodium Phosphate (Decadron) 20 mg STK-MED ONCE .ROUTE ; Start 06/06/17 at 10:33; Stop 06/06/17 at 10:34; Status DC Multivitamins 10 ml/Folic Acid 1 mg/Thiamine HCl 100 mg/Ringer's Solution 1, 011.2 ml @ 1,000 mls/ hr 1X ONCE IV ; Start 06/06/17 at 11:30; Stop 06/06/17 at 12:30; Status DC Fentanyl Citrate (Fentanyl 2ml Vial) 25 mcg PRN Q5MIN PRN IV MILD PAIN; Start 06/06/17 at 11:45; Stop 06/07/17 at 11:44; Status DC Fentanyl Citrate (Fentanyl 2ml Vial) 50 mcg PRN Q5MIN PRN IV MODERATE PAIN Last administered on 06/06/17t 17:24; Start 06/06/17 at 11:45; Stop 06/07/17 at 11:44; Status DC Morphine Sulfate 1 mg PRN Q10MIN PRN IV SEVERE PAIN Last administered on t 15:38; Start 06/06/17 at 11:45; Stop 06/07/17 at 11:44; Status DC Ringer's Solution 1,000 ml @ 30 mls/hr Q24H IV ; Start 06/06/17 at 11:39; Stop 06/06/17 at 23:38; Status DC Lidocaine HCl (Xylocaine-Mpf 1% Vial) 2 ml 1X PRN PRN ID IV START; Start at 11:45; Stop 06/07/17 at 11:44; Status DC Hydromorphone HCl (Dilaudid) 0.5 mg PRN Q10MIN PRN IV SEV PAIN, Second choice; Start 06/06/17 at 11:45; Stop 06/07/17 at 11:44; Status DC Prochlorperazine Edisylate (Compazine) 5 mg PACU PRN PRN IV NAUSEA, MRX1; Start 06/06/17 at 11:45; Stop 06/07/17 at 11:44; Status DC Phenylephrine HCl (Pedro-Synephrine Inj) 10 mg STK-MED ONCE .ROUTE ; Start at 11:58; Stop 06/06/17 at 11:59; Status DC Sodium Chloride (Sodium Chloride) 50 ml STK-MED ONCE IJ ; Start 06/06/17 at 11: 58; Stop 06/06/17 at 11:59; Status DC Sevoflurane (Ultane) 90 ml STK-MED ONCE IH ; Start 06/06/17 at 13:52; Stop 06/06 at 13:53; Status DC Neostigmine Methylsulfate 5 mg STK-MED ONCE .ROUTE ; Start 06/06/17 at 13:52; Stop 06/06/17 at 13:53; Status DC Glycopyrrolate (Robinul) 1 mg STK-MED ONCE .ROUTE ; Start 06/06/17 at 13:52; Stop 06/06/17 at 13:53; Status DC Fentanyl Citrate (Fentanyl 2ml Vial) 100 mcg STK-MED ONCE .ROUTE ; Start at 14:18; Stop 06/06/17 at 14:19; Status DC Diphenhydramine HCl (Benadryl) 25 mg PRN Q6HRS PRN IV ITCHING; Start 06/06/17 at 14:30 Enoxaparin Sodium (Lovenox 40mg Syringe) 40 mg Q24H SQ Last administered on t 15:00; Start 06/06/17 at 15:00; Stop 06/06/17 at 15:41; Status DC Sodium Chloride (Normal Saline Flush) 3 ml QSHIFT PRN IV AFTER MEDS AND BLOOD DRAWS; Start 06/06/17 at 14:30 Potassium Chloride/Sodium Chloride 1,000 ml @ 100 mls/hr Q10H IV Last administered on 06/07/17 20:00; Start 06/06/17 at 15:00; Stop 06/08/17 at 09: 20; Status DC Hydromorphone HCl 30 ml @ 0 mls/hr CONT PRN PRN IV PROTOCOL; Start 06/06/17 at 14:30; Stop 06/06/17 at 17:30; Status DC Ondansetron HCl (Zofran) 4 mg PRN Q6HRS PRN IV NAUESA, 1ST CHOICE; Start at 14:30 Epinephrine (S2 Racepinephrine) 0.5 ml STK-MED ONCE .ROUTE ; Start 06/06/17 at 14:35; Stop 06/06/17 at 14:36; Status DC Propofol 50 ml @ As Directed STK-MED ONCE IV ; Start 06/06/17 at 14:38; Stop at 14:39; Status DC Succinylcholine Chloride (Anectine) 200 mg STK-MED ONCE .ROUTE ; Start 06/06/17 at 14:40; Stop 06/06/17 at 14:41; Status DC Epinephrine (S2 Racepinephrine) 0.5 ml 1X ONCE NEB Last administered on 14:43; Start 06/06/17 at 14:36; Stop 06/06/17 at 14:43; Status DC Midazolam HCl (Versed) 2 mg STK-MED ONCE .ROUTE ; Start 06/06/17 at 14:48; Stop 06/06/17 at 14:49; Status DC Propofol 100 ml @ 0 mls/hr CONT PRN IV SEE I/O RECORD; Start 06/06/17 at 15:15 ; Stop 06/08/17 at 09:20; Status DC Propofol 50 ml @ As Directed STK-MED ONCE IV ; Start 06/06/17 at 15:03; Stop at 15:04; Status DC Dexamethasone Sodium Phosphate (Decadron) 12 mg 1X ONCE IV Last administered on 06/06/17 15:09; Start 06/06/17 at 15:00; Stop 06/06/17 at 15:06; Status DC Dexamethasone Sodium Phosphate (Decadron) 4 mg STK-MED ONCE .ROUTE ; Start 06/06 at 15:05; Stop 06/06/17 at 15:06; Status DC Propofol 50 ml @ 0 mls/hr 1X ONCE IV Last administered on 06/06/17 15:02; Start 06/06/17 at 15:15; Stop 06/06/17 at 15:16; Status DC Succinylcholine Chloride (Anectine) 200 mg 1X ONCE IV ; Start 06/06/17 at 15:15 ; Stop 06/06/17 at 15:16; Status DC Midazolam HCl (Versed) 2 mg 1X ONCE IV ; Start 06/06/17 at 15:15; Stop at 15:16; Status DC Cellulose 1 each STK-MED ONCE .ROUTE Last administered on 06/06/17 13:35; Start 06/06/17 at 14:19; Stop 06/06/17 at 15:20; Status DC Enoxaparin Sodium (Lovenox 40mg Syringe) 40 mg Q24H SQ Last administered on 08:48; Start 06/07/17 at 09:00; Stop 06/12/17 at 10:16; Status DC Metronidazole 100 ml @ 100 mls/hr Q12HR IV Last administered on 06/12/17 21: 32; Start 06/06/17 at 21:00; Stop 06/13/17 at 07:45; Status DC Multivitamins 10 ml/Folic Acid 1 mg/Thiamine HCl 100 mg/Dextrose/ Lactated Ringer's 1,011.2 ml @ 100 mls/ hr DAILY IV Last administered on 06/07/17 09: 21; Start 06/07/17 at 09:00; Stop 06/08/17 at 08:06; Status DC Lorazepam (Ativan) 2 mg PRN Q4HRS PRN IV ANXIETY / AGITATION; Start 06/06/17 at 15:45; Stop 06/12/17 at 10:16; Status DC Famotidine (Pepcid) 20 mg BID IVP Last administered on 06/08/17 11:18; Start 06/06/17 at 21:00; Stop 06/09/17 at 07:53; Status DC Morphine Sulfate 2 mg PRN Q2HR PRN IV PAIN Last administered on 06/10/17 22: 59; Start 06/06/17 at 15:45 Morphine Sulfate 4 mg PRN Q2HR PRN IV PAIN Last administered on 06/11/17 08: 31; Start 06/06/17 at 15:45 Ondansetron HCl (Zofran) 4 mg PRN Q6HRS PRN IV NAUSEA/VOMITING; Start 06/06/17 at 15:45; Stop 06/06/17 at 15:45; Status DC Fentanyl Citrate 30 ml @ 0 mls/hr CONT PRN IV PROTOCOL Last administered on 02:54; Start 06/06/17 at 17:30; Stop 06/07/17 at 10:39; Status DC Midazolam HCl 100 ml @ 0 mls/hr CONT PRN IV SEE I/O RECORD; Start 06/06/17 at 23:00; Stop 06/08/17 at 09:20; Status DC Sodium Chloride 1,000 ml @ 1,000 mls/hr 1X ONCE IV Last administered on 23:34; Start 06/06/17 at 23:00; Stop 06/06/17 at 23:59; Status DC Magnesium Sulfate/ Dextrose 50 ml @ 25 mls/hr 1X ONCE IV Last administered on 06/07/17 09:28; Start 06/07/17 at 08:15; Stop 06/07/17 at 10:14; Status DC Info 1 each PRN DAILY PRN MC SEE COMMENTS Last administered on 06/19/17 13:27 ; Start 06/07/17 at 09:30; Stop 06/20/17 at 12:47; Status DC Methylprednisolone Sodium Succinate (SOLU-Medrol 125MG VIAL) 50 mg DAILY IV Last administered on 06/12/17 08:47; Start 06/07/17 at 11:00; Stop 06/12/17 at 10:16; Status DC Hydromorphone HCl 30 ml @ 0 mls/hr CONT PRN PRN IV PROTOCOL Last administered on 06/07/17 11:16; Start 06/07/17 at 10:45; Stop 06/09/17 at 08:57; Status DC Sodium Chloride 90 meq/Potassium Chloride 50 meq/ Potassium Phosphate 13.6 mmol/ Magnesium Sulfate 10 meq/ Calcium Gluconate 10 meq/ Multivitamins 10 ml/Chromium / Copper/Manganese/ Seleni/Zn 1 ml/ Total Parenteral Nutrition/Amino Acids/ Dextrose/ Fat Emulsion Intravenous 1,512 ml @ 63 mls/hr TPN CONT IV Last administered on 06/07/17 22:04; Start 06/07/17 at 22:00; Stop 06/08/17 at 21 :59; Status DC Influenza Virus Vaccine Quadrival (Fluarix Quad [id number] Syringe) 0.5 ml ONCE ONCE VAX IM Last administered on 06/08/17 13:23; Start 06/07/17 at 16:15; Stop 06/07/17 at 16:35; Status DC Pneumococcal Polyvalent Vaccine (Do NOT chart on this placeholder) 1 each PRN 1X PRN MC SEE COMMENTS; Start 06/07/17 at 16:45; Status UNV Pneumococcal Polyvalent Vaccine (Pneumovax 23) 0.5 ml ONCE ONCE VAX IM Last administered on 06/08/17 13:25; Start 06/07/17 at 17:00; Stop 06/07/17 at 17 :01; Status DC Ceftriaxone Sodium 1 gm/ Sodium Chloride 50 ml @ 100 mls/hr Q24H IV Last administered on 06/12/17 08:45; Start 06/08/17 at 09:00; Stop 06/13/17 at 07 :45; Status DC Sodium Phosphate 20 mmol/Dextrose 256.6667 ml @ 64.167 m... 1X ONCE IV Last administered on 06/08/17 08:58; Start 06/08/17 at 09:00; Stop 06/08/17 at 12 :59; Status DC Multi-Ingred Cream/Lotion/Oil/ Oint (Artificial Tears Eye Oint) 1 juvenal PRN Q1HR PRN OU DRY EYE; Start 06/08/17 at 09:15 Sodium Chloride 90 meq/Potassium Chloride 40 meq/ Potassium Phosphate 17 mmol/ Magnesium Sulfate 10 meq/Calcium Gluconate 10 meq/ Multivitamins 10 ml/Chromium / Copper/Manganese/ Seleni/Zn 1 ml/ Total Parenteral Nutrition/Amino Acids/ Dextrose/ Fat Emulsion Intravenous 1,512 ml @ 63 mls/hr TPN CONT IV Last administered on 06/08/17 22:42; Start 06/08/17 at 22:00; Stop 06/09/17 at 21 :59; Status DC Diclofenac Sodium (Voltaren) 1 juvenal BID TP Last administered on 06/16/17 09:16 ; Start 06/08/17 at 21:00 Oxycodone/ Acetaminophen (Percocet 10/325) 1 tab PRN Q4HRS PRN PO pain Last administered on 06/15/17 08:48; Start 06/09/17 at 08:00; Stop 06/15/17 at 10 :39; Status DC Magnesium Sulfate/ Dextrose 50 ml @ 25 mls/hr 1X ONCE IV Last administered on 06/09/17 09:31; Start 06/09/17 at 08:00; Stop 06/09/17 at 09:59; Status DC Potassium Phosphate (K-Phos Original) 500 mg BID PO Last administered on 08:51; Start 06/09/17 at 09:00 Lidocaine (Lidoderm) 1 patch DAILY TD Last administered on 06/09/17 09:36; Start 06/09/17 at 09:00; Stop 06/10/17 at 20:50; Status DC Potassium Phosphate 13.6 mmol/Sodium Chloride 104.5333 ml @ 52.267 m... 1X ONCE IV Last administered on 06/09/17 13:51; Start 06/09/17 at 13:30; Stop 06/09/17 at 15:29; Status DC Sodium Chloride 40 meq/Sodium Acetate 50 meq/ Potassium Chloride 40 meq/ Potassium Phosphate 20 mmol/ Magnesium Sulfate 15 meq/Calcium Gluconate 10 meq/ Multivitamins 10 ml/Chromium/ Copper/Manganese/ Seleni/Zn 1 ml/ Total Parenteral Nutrition/Amino Acids/Dextrose/ Fat Emulsion Intravenous 1,512 ml @ 63 mls/hr TPN CONT IV Last administered on 06/09/17 22:11; Start 06/09/17 at 22:00; Stop 06/10/17 at 21:59; Status DC Potassium Chloride (Klor-Con) 40 meq 1X ONCE PO Last administered on 10:40; Start 06/10/17 at 09:30; Stop 06/10/17 at 09:31; Status DC Potassium Chloride (Klor-Con) 20 meq [id number] PO Last administered on 08:57; Start 06/11/17 at 08:00 Magnesium Sulfate/ Dextrose 50 ml @ 25 mls/hr 1X ONCE IV Last administered on 06/10/17 10:38; Start 06/10/17 at 10:00; Stop 06/10/17 at 11:59; Status DC Sodium Chloride 40 meq/Sodium Acetate 50 meq/ Potassium Acetate 60 meq/ Potassium Phosphate 18 mmol/ Magnesium Sulfate 18 meq/Calcium Gluconate 10 meq/ Multivitamins 10 ml/Chromium/ Copper/Manganese/ Seleni/Zn 1 ml/ Total Parenteral Nutrition/Amino Acids/Dextrose/ Fat Emulsion Intravenous 1,512 ml @ 63 mls/hr TPN CONT IV Last administered on 06/10/17 21:43; Start 06/10/17 at 22:00; Stop 06/11/17 at 22:00; Status DC Lidocaine (Lidoderm) 1 patch QHS TD Last administered on 06/10/17 21:37; Start 06/10/17 at 21:00; Stop 06/12/17 at 05:01; Status DC Magnesium Sulfate/ Dextrose 100 ml @ 25 mls/hr 1X ONCE IV Last administered on 06/11/17 11:22; Start 06/11/17 at 09:00; Stop 06/11/17 at 12:59; Status DC Lisinopril (Prinivil) 10 mg DAILY PO Last administered on 06/13/17 08:34; Start 06/11/17 at 13:00; Stop 06/13/17 at 09:19; Status DC Metoprolol Succinate (Toprol Xl) 100 mg DAILY PO Last administered on 08:52; Start 06/11/17 at 13:00 Hydrochlorothiazide (Hydrodiuril) 25 mg DAILY PO Last administered on 08:52; Start 06/11/17 at 13:00 Sodium Chloride 40 meq/Sodium Acetate 50 meq/ Potassium Acetate 60 meq/ Potassium Phosphate 18 mmol/ Magnesium Sulfate 18 meq/Calcium Gluconate 10 meq/ Multivitamins 10 ml/Chromium/ Copper/Manganese/ Seleni/Zn 1 ml/ Total Parenteral Nutrition/Amino Acids/Dextrose/ Fat Emulsion Intravenous 1,512 ml @ 63 mls/hr TPN CONT IV Last administered on 06/11/17 21:43; Start 06/11/17 at 22:00; Stop 06/12/17 at 21:59; Status DC Lidocaine (Lidoderm) 1 patch DAILY TD Last administered on 06/13/17 08:35; Start 06/12/17 at 09:00 Hydralazine HCl (Apresoline Inj) 10 mg PRN Q4HRS PRN IVP ELEVATED BP, SEE COMMENTS; Start 06/12/17 at 09:00 Magnesium Sulfate/ Dextrose 100 ml @ 25 mls/hr 1X ONCE IV Last administered on 06/12/17 09:53; Start 06/12/17 at 09:30; Stop 06/12/17 at 13:29; Status DC Magnesium Oxide (Magnesium Oxide) 400 mg DAILY PO Last administered on 08:50; Start 06/12/17 at 09:30 Lorazepam (Ativan) 1 mg PRN Q4HRS PRN IV ANXIETY / AGITATION; Start 06/12/17 at 10:15 Alprazolam (Xanax) 0.5 mg PRN Q8HRS PRN PO ANXIETY / AGITATION; Start at 10:15 Prednisone (Prednisone) 20 mg DAILY PO Last administered on 06/13/17 08:34; Start 06/13/17 at 09:00; Stop 06/13/17 at 15:06; Status DC Sodium Chloride 60 meq/Sodium Acetate 50 meq/ Potassium Acetate 60 meq/ Potassium Phosphate 18 mmol/ Magnesium Sulfate 27 meq/Calcium Gluconate 10 meq/ Multivitamins 10 ml/Chromium/ Copper/Manganese/ Seleni/Zn 1 ml/ Total Parenteral Nutrition/Amino Acids/Dextrose/ Fat Emulsion Intravenous 1,512 ml @ 63 mls/hr TPN CONT IV Last administered on 06/12/17 21:33; Start 06/12/17 at 22:00; Stop 06/13/17 at 21:59; Status DC Metronidazole (Flagyl) 500 mg Q12HR PO Last administered on 06/15/17 21:48; Start 06/13/17 at 09:00; Stop 06/16/17 at 09:05; Status DC Cefpodoxime Proxetil (Vantin) 200 mg BID PO Last administered on 06/15/17 21: 49; Start 06/13/17 at 09:00; Stop 06/16/17 at 09:05; Status DC Lisinopril (Prinivil) 20 mg DAILY PO Last administered on 06/20/17 08:53; Start 06/14/17 at 09:00 Lisinopril (Prinivil) 10 mg 1X ONCE PO ; Start 06/13/17 at 09:30; Stop at 09:31; Status DC Docusate Sodium (Colace) 100 mg BID PO Last administered on 06/20/17 08:53; Start 06/13/17 at 11:30 Sodium Chloride 60 meq/Sodium Acetate 50 meq/ Potassium Acetate 60 meq/ Potassium Phosphate 18 mmol/ Magnesium Sulfate 27 meq/Calcium Gluconate 10 meq/ Multivitamins 10 ml/Chromium/ Copper/Manganese/ Seleni/Zn 1 ml/ Total Parenteral Nutrition/Amino Acids/Dextrose/ Fat Emulsion Intravenous 1,512 ml @ 63 mls/hr TPN CONT IV Last administered on 06/13/17 22:31; Start 06/13/17 at 22:00; Stop 06/14/17 at 21:59; Status DC Lisinopril (Prinivil) 10 mg 1X ONCE PO Last administered on 06/13/17 16:18; Start 06/13/17 at 14:45; Stop 06/13/17 at 14:46; Status DC Polyethylene Glycol (miraLAX PACKET) 17 gm DAILY PO ; Start 06/14/17 at 09:30; Stop 06/14/17 at 11:47; Status DC Magnesium Hydroxide (Milk Of Magnesia) 2,400 mg PRN DAILY PRN PO CONSTIPATION; Start 06/14/17 at 09:30; Stop 06/14/17 at 11:47; Status DC Magnesium Hydroxide (Milk Of Magnesia) 2,400 mg 1X ONCE PO ; Start 06/14/17 at 09:30; Stop 06/14/17 at 09:31; Status Cancel Magnesium Sulfate/ Dextrose 100 ml @ 25 mls/hr 1X ONCE IV Last administered on 06/14/17 12:03; Start 06/14/17 at 10:00; Stop 06/14/17 at 13:59; Status DC Sodium Chloride 80 meq/Sodium Acetate 50 meq/ Potassium Acetate 60 meq/ Potassium Phosphate 18 mmol/ Magnesium Sulfate 27 meq/Calcium Gluconate 10 meq/ Multivitamins 10 ml/Chromium/ Copper/Manganese/ Seleni/Zn 1 ml/ Total Parenteral Nutrition/Amino Acids/Dextrose/ Fat Emulsion Intravenous 1,512 ml @ 63 mls/hr TPN CONT IV Last administered on 06/14/17 22:34; Start 06/14/17 at 22:00; Stop 06/15/17 at 21:59; Status DC Hydromorphone HCl (Dilaudid) 1 mg 1X ONCE IV Last administered on 06/14/17 15:47; Start 06/14/17 at 13:15; Stop 06/14/17 at 13:16; Status DC Iohexol (Omnipaque 300 Mg/ml) 75 ml 1X ONCE IV Last administered on 13:56; Start 06/14/17 at 13:30; Stop 06/14/17 at 13:31; Status DC Info (Do NOT chart on this entry -- for MONITORING) 1 each PRN DAILY PRN MC SEE COMMENTS; Start 06/14/17 at 13:15; Stop 06/16/17 at 13:14; Status DC Oxycodone/ Acetaminophen (Percocet 10/325) 1 tab Q4HRS PO Last administered on 06/20/17 12:29; Start 06/15/17 at 12:00 Sodium Chloride 80 meq/Sodium Acetate 50 meq/ Potassium Acetate 60 meq/ Potassium Phosphate 18 mmol/ Magnesium Sulfate 27 meq/Calcium Gluconate 10 meq/ Multivitamins 10 ml/Chromium/ Copper/Manganese/ Seleni/Zn 1 ml/ Total Parenteral Nutrition/Amino Acids/Dextrose/ Fat Emulsion Intravenous 1,512 ml @ 63 mls/hr TPN CONT IV Last administered on 06/15/17 22:14; Start 06/15/17 at 22:00; Stop 06/16/17 at 21:59; Status DC Meropenem 1 gm/ Sodium Chloride 100 ml @ 200 mls/hr Q8HRS IV Last administered on 06/20/17 05:00; Start 06/16/17 at 14:00 Vancomycin HCl (Vanco Per Pharmacy) 1 each PRN DAILY PRN MC SEE COMMENTS Last administered on 06/19/17 13:33; Start 06/16/17 at 09:00 Fluconazole/ Sodium Chloride 200 ml @ 100 mls/hr Q24H IV Last administered on 06/20/17 10:39; Start 06/16/17 at 10:00 Vancomycin HCl 2 gm/Dextrose 500 ml @ 250 mls/hr 1X ONCE IV Last administered on 06/16/17 11:57; Start 06/16/17 at 11:00; Stop 06/16/17 at 12 :59; Status DC Magnesium Sulfate/ Dextrose 50 ml @ 25 mls/hr 1X ONCE IV Last administered on 06/16/17 11:56; Start 06/16/17 at 10:30; Stop 06/16/17 at 12:30; Status DC Vancomycin HCl 1.25 gm/Dextrose 250 ml @ 167 mls/hr Q12H IV Last administered on 06/20/17 12:29; Start 06/17/17 at 00:00 Vancomycin HCl 1 each 1X ONCE MC Last administered on 06/18/17 23:30; Start 06/18/17 at 23:30; Stop 06/18/17 at 23:31; Status DC Sodium Chloride 80 meq/Sodium Acetate 50 meq/ Potassium Acetate 60 meq/ Potassium Phosphate 18 mmol/ Magnesium Sulfate 30 meq/Calcium Gluconate 10 meq/ Multivitamins 10 ml/Chromium/ Copper/Manganese/ Seleni/Zn 1 ml/ Total Parenteral Nutrition/Amino Acids/Dextrose/ Fat Emulsion Intravenous 1,512 ml @ 63 mls/hr TPN CONT IV Last administered on 06/16/17 22:03; Start 06/16/17 at 22:00; Stop 06/17/17 at 21:59; Status DC Lactobacillus Acidophilus (Bacid, Jenniffer-Bid) 1 tab BID PO Last administered on 06/19/17 09:40; Start 06/16/17 at 21:00; Stop 06/19/17 at 09:01; Status DC Magnesium Sulfate/ Dextrose 50 ml @ 25 mls/hr 1X ONCE IV Last administered on 06/17/17 10:00; Start 06/17/17 at 10:00; Stop 06/17/17 at 11:59; Status DC Sodium Chloride 80 meq/Sodium Acetate 50 meq/ Potassium Acetate 60 meq/ Potassium Phosphate 18 mmol/ Magnesium Sulfate 30 meq/Calcium Gluconate 10 meq/ Multivitamins 10 ml/Chromium/ Copper/Manganese/ Seleni/Zn 1 ml/ Total Parenteral Nutrition/Amino Acids/Dextrose/ Fat Emulsion Intravenous 1,512 ml @ 63 mls/hr TPN CONT IV Last administered on 06/17/17 22:00; Start 06/17/17 at 22:00; Stop 06/18/17 at 21:59; Status DC Sodium Chloride 95 meq/Sodium Acetate 50 meq/ Potassium Acetate 60 meq/ Potassium Phosphate 18 mmol/ Magnesium Sulfate 30 meq/Calcium Gluconate 10 meq/ Multivitamins 10 ml/Chromium/ Copper/Manganese/ Seleni/Zn 1 ml/ Total Parenteral Nutrition/Amino Acids/Dextrose/ Fat Emulsion Intravenous 1,512 ml @ 63 mls/hr TPN CONT IV Last administered on 06/18/17 22:06; Start 06/18/17 at 22:00; Stop 06/19/17 at 21:59; Status DC Lactobacillus Rhamnosus (Culturelle) 1 cap BID PO Last administered on 10:38; Start 06/19/17 at 21:00 Sodium Chloride 95 meq/Sodium Acetate 50 meq/ Potassium Acetate 60 meq/ Potassium Phosphate 18 mmol/ Magnesium Sulfate 30 meq/Calcium Gluconate 10 meq/ Multivitamins 10 ml/Chromium/ Copper/Manganese/ Seleni/Zn 1 ml/ Total Parenteral Nutrition/Amino Acids/Dextrose/ Fat Emulsion Intravenous 1,512 ml @ 63 mls/hr TPN CONT IV Last administered on 06/19/17 22:18; Start 06/19/17 at 22:00; Stop 06/20/17 at 21:59 Chlorhexidine Gluconate (Peridex) 15 ml BID SWSP Last administered on 10:39; Start 06/20/17 at 09:30 Active Scripts Active Reported [prednisone taper] Metoprolol Succinate ( Xl ) (Metoprolol Succinate) 100 Mg Tab.er.24h 1 Tab PO DAILY Lisinopril 10 Mg Tablet 1 Tab PO DAILY Hydrochlorothiazide Tablet (Hydrochlorothiazide) 50 Mg Tablet 25 Tab PO DAILY Vitals/I & O Vital Sign - Last 24 Hours 06/19/17 06/19/17 06/19/17 06/19/17 15:00 17:48 19:00 21:00 Temp 99.0 98.1 99.9 99.0 98.1 99.9 Pulse 76 72 70 Resp 18 18 18 18 B/P (MAP) 132/73 (92) 112/61 (78) 118/87 (97) Pulse Ox 97 97 92 95 O2 Delivery Room Air Room Air Room Air Room Air 06/19/17 06/19/17 06/19/17 06/20/17 21:00 22:00 22:18 03:00 Temp 99.9 99.9 99.1 99.9 99.9 99.1 Pulse 70 70 65 Resp 18 18 17 18 B/P (MAP) 118/87 (97) 118/87 (97) 139/89 (106) Pulse Ox 95 95 97 95 O2 Delivery Room Air Room Air Room Air Room Air 06/20/17 06/20/17 06/20/17 06/20/17 04:46 06:00 07:00 08:50 Temp 98.0 98.0 Pulse 70 Resp 15 16 18 B/P (MAP) 151/91 (111) Pulse Ox 95 95 94 O2 Delivery Room Air Room Air Room Air 06/20/17 06/20/17 06/20/17 06/20/17 08:52 08:53 10:45 11:00 Temp 98.2 98.2 Pulse 70 70 68 Resp 18 B/P (MAP) 157/91 157/91 103/49 (67) Pulse Ox 98 O2 Delivery Room Air Room Air 06/20/17 12:29 O2 Delivery Room Air KRISTIN PEÑA MD Jun 20, 2017 13:05
[2017-06-20] MEDS: FERROUS SULFATE 325 MG TABLET. PO SCH (14:25)
[2017-06-20 14:46] LABS: FOLATE 19.08 ng/ml (3.2-20.0)
[2017-06-20 15:00] VITALS: BP 110/54
[2017-06-20] MEDS: VANCOMYCIN PER PHARMACY MC PRN (15:56)
[2017-06-20 19:00] VITALS: BP 128/77
[2017-06-20 23:00] VITALS: BP 126/63
[2017-06-21] MEDS: VANCOMYCIN 1.25 GM in IV DEXTROSE 5% 250 ML IV SCH (00:01)
[2017-06-21] MEDS: oxyCODONE/APAP 10/325 1 TAB TABLET PO SCH ×8 (00:01→23:47)
[2017-06-21 04:00] VITALS: BP 111/57
[2017-06-21] MEDS: MEROPENEM 1 GM in IV NORMAL SALINE 100ML 100 ML IV SCH ×3 (05:46→21:56)
[2017-06-21 06:18] LABS: CALCIUM 7.8 mg/dL (8.5-10.1); GFR 74.8
[2017-06-21 06:19] LABS: BASO % 0 % (0-3); EOS % 6 % (0-3); HEMATOCRIT 21.5 % (39.0-53.0); HEMOGLOBIN 7.1 g/dL (13.0-17.5); LYMPH # 0.8 x10^3/uL (1.0-4.8); LYMPH % 10 % (24-48); MEAN CORPUSCULAR HEMOGLOBIN 28 pg (25-35); MEAN CORPUSCULAR HGB CONC 33 g/dL (31-37); MEAN CORPUSCULAR VOLUME 85 fL (79-100); MONO % 15 % (0-9); NEUT % 68 % (31-73); PLATELET COUNT 426 x10^3/uL (140-400); RED BLOOD COUNT 2.53 x10^6/uL (4.30-5.70); RED CELL DISTRIBUTION WIDTH 13.9 % (11.5-14.5); WHITE BLOOD COUNT 8.2 x10^3/uL (4.0-11.0)
[2017-06-21 07:00] VITALS: BP 158/70
--- NOTE | 2017-06-21 08:17 | PDOC ---
Infectious Disease Note Subjective Subjective Remains on TPN Pain controlled at the moment Feels well this am ROS ROS GEN: Denies fevers, chills, sweats HEENT: Denies blurred vision, sore throat CV: Denies chest pain RESP: Denies shortness of air, cough GI: Denies n/v/d NEURO: Denies confusion, dizziness MSK: Denies weakness, joint pain/swelling Vital Sign Vital Signs Vital Signs Date Time Temp Pulse Resp B/P (MAP) Pulse Ox O2 Delivery O2 Flow Rate FiO2 06/21/17 05:05 Room Air 06/21/17 04:00 98.9 76 16 111/57 (75) 94 98.9 Physical Exam PHYSICAL EXAM GENERAL: NAD, Alert HEENT: PERRL, OC/OP- tongue coated NECK: Supple, no JVD, no LN LUNGS: Clear HEART: S1S2, no gallop, no murmur ABD: Soft, mild distension. Ostomy clean with approp output. Wound still with mild erythema. Drain out. Hedy EXT: No edema, no cyanosis DIE REPAIR: Alert, oriented x 3, no focal neurologic deficit SKIN: No rash IV: LUE PICC - clean Labs Lab Laboratory Tests Test 06/20/17 08:45 06/20/17 11:40 06/20/17 16:53 06/20/17 21:30 Stool Occult Blood Positive (NEG) Glucose (Fingerstick) 119 mg/dL (70-99) 111 mg/dL (70-99) 93 mg/dL (70-99) Test 06/21/17 05:50 White Blood Count 8.2 x10^3/uL (4.0-11.0) Red Blood Count 2.53 x10^6/uL (4.30-5.70) Hemoglobin 7.1 g/dL (13.0-17.5) Hematocrit 21.5 % (39.0-53.0) Mean Corpuscular Volume 85 fL (79-100) Mean Corpuscular Hemoglobin 28 pg (25-35) Mean Corpuscular Hemoglobin Concent 33 g/dL (31-37) Red Cell Distribution Width 13.9 % (11.5-14.5) Platelet Count 426 x10^3/uL (140-400) Neutrophils (%) (Auto) 68 % (31-73) Lymphocytes (%) (Auto) 10 % (24-48) Monocytes (%) (Auto) 15 % (0-9) Eosinophils (%) (Auto) 6 % (0-3) Basophils (%) (Auto) 0 % (0-3) Neutrophils # (Auto) 5.6 x10^3uL (1.8-7.7) Lymphocytes # (Auto) 0.8 x10^3/uL (1.0-4.8) Monocytes # (Auto) 1.2 x10^3/uL (0.0-1.1) Eosinophils # (Auto) 0.5 x10^3/uL (0.0-0.7) Basophils # (Auto) 0.0 x10^3/uL (0.0-0.2) Sodium Level 133 mmol/L (136-145) Potassium Level 4.0 mmol/L (3.5-5.1) Chloride Level 100 mmol/L (98-107) Carbon Dioxide Level 28 mmol/L (21-32) Anion Gap 5 (6-14) Blood Urea Nitrogen 17 mg/dL (8-26) Creatinine 1.0 mg/dL (0.7-1.3) Estimated GFR (Cockcroft-Gault) 74.8 Glucose Level 88 mg/dL (70-99) Calcium Level 7.8 mg/dL (8.5-10.1) Micro CT abd 06/14 Impression: 1. Expected postoperative findings of partial colectomy and diverting colostomy. Small amount of gas within the abdomen is decreased from prior study, may be related to the remaining surgical drain. 2. No acute intra-abdominal findings. 3. Right lower lobe consolidation with air bronchograms concerning for pneumonia. Small right and trace left pleural effusion. Objective Assessment Fever - improving Perforated viscus with fecal peritonitis, E. coli & Prevotella spp. 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 Drains removed. still mild erythema about the wound Abdominal pain, better Respiratory failure - better - some RLL consolidation most recent CT with atelectasis/infiltrate Chronic back pain HTN Leukocytosis, ? steroids - off steroids 06/13. better Plan Plan of Care D/c vanc, & Fluconazole Cont meropenem try to wean soon Begin Zyvox monitor incision and temp F/u wound cults f/u am labs Supportive care THALIA MORALES MD Jun 21, 2017 08:17
[2017-06-21] MEDS: DICLOFENAC SODIUM 1% TOPICAL GEL 100GM TUBE. TP SCH ×2 (09:00→20:59)
[2017-06-21] MEDS: LINEZOLID 600 MG TABLET PO SCH ×2 (09:00→20:56)
[2017-06-21] MEDS: CHLORHEXIDINE 0.12% 15 ML MOUTHWASH. SWSP SCH ×2 (09:02→20:57)
[2017-06-21] MEDS: LIDOCAINE (700MG/PATCH) PATCH. TD SCH (09:03)
[2017-06-21] MEDS: hydroCHLOROthiazide 25 MG TABLET PO SCH (09:04)
[2017-06-21] MEDS: MAGNESIUM OXIDE 400 MG TABLET PO SCH (09:04)
[2017-06-21] MEDS: POTASSIUM CHLORIDE 20 MEQ TABLET.ER. PO SCH (09:04)
[2017-06-21] MEDS: DOCUSATE SODIUM 100 MG CAPSULE. PO SCH ×2 (09:04→20:56)
[2017-06-21] MEDS: POTASSIUM PHOSPHATE,MONOBASIC 500 MG TABLET. PO SCH ×2 (09:04→20:55)
[2017-06-21] MEDS: LACTOBACILLUS RHAMNOSUS GG 1 CAPSULE. PO SCH ×2 (09:04→20:57)
[2017-06-21] MEDS: METOPROLOL SUCC 24HR ER 100 MG TAB.ER.24H. PO SCH (09:05)
[2017-06-21] MEDS: LISINOPRIL 20 MG TABLET PO SCH (09:06)
[2017-06-21] MEDS: FERROUS SULFATE 325 MG TABLET. PO SCH (09:06)
[2017-06-21 11:16] VITALS: BP 143/66
--- NOTE | 2017-06-21 13:11 | PDOC ---
SURGICAL PROGRESS NOTE Subjective timing of pain meds still an issue at bedside Vital Signs Vital Signs Date Time Temp Pulse Resp B/P (MAP) Pulse Ox O2 Delivery O2 Flow Rate FiO2 06/21/17 12:24 20 94 Room Air 2.0 06/21/17 11:16 100.2 91 143/66 (91) 100.2 PATIENT HAS A MUELLER: No General: Alert, Oriented X3, No acute distress Abdomen: Soft, Other (some soft stool in the ostomy bag) Labs Laboratory Tests Test 06/19/17 15:27 06/19/17 20:34 06/20/17 05:06 06/20/17 07:26 Glucose (Fingerstick) 129 mg/dL (70-99) 130 mg/dL (70-99) 117 mg/dL (70-99) White Blood Count 8.6 x10^3/uL (4.0-11.0) Red Blood Count 2.82 x10^6/uL (4.30-5.70) Hemoglobin 8.1 g/dL (13.0-17.5) Hematocrit 24.1 % (39.0-53.0) Mean Corpuscular Volume 85 fL (79-100) Mean Corpuscular Hemoglobin 29 pg (25-35) Mean Corpuscular Hemoglobin Concent 34 g/dL (31-37) Red Cell Distribution Width 13.6 % (11.5-14.5) Platelet Count 495 x10^3/uL (140-400) Neutrophils (%) (Auto) 68 % (31-73) Lymphocytes (%) (Auto) 12 % (24-48) Monocytes (%) (Auto) 13 % (0-9) Eosinophils (%) (Auto) 5 % (0-3) Basophils (%) (Auto) 1 % (0-3) Neutrophils # (Auto) 5.8 x10^3uL (1.8-7.7) Lymphocytes # (Auto) 1.0 x10^3/uL (1.0-4.8) Monocytes # (Auto) 1.1 x10^3/uL (0.0-1.1) Eosinophils # (Auto) 0.5 x10^3/uL (0.0-0.7) Basophils # (Auto) 0.1 x10^3/uL (0.0-0.2) Sodium Level 134 mmol/L (136-145) Potassium Level 4.0 mmol/L (3.5-5.1) Chloride Level 99 mmol/L (98-107) Carbon Dioxide Level 29 mmol/L (21-32) Anion Gap 6 (6-14) Blood Urea Nitrogen 16 mg/dL (8-26) Creatinine 1.0 mg/dL (0.7-1.3) Estimated GFR (Cockcroft-Gault) 74.8 Glucose Level 96 mg/dL (70-99) Calcium Level 8.2 mg/dL (8.5-10.1) Albumin 1.6 g/dL (3.4-5.0) Test 06/20/17 08:45 06/20/17 11:40 06/20/17 16:53 06/20/17 21:30 Stool Occult Blood Positive (NEG) Glucose (Fingerstick) 119 mg/dL (70-99) 111 mg/dL (70-99) 93 mg/dL (70-99) Test 06/21/17 05:50 White Blood Count 8.2 x10^3/uL (4.0-11.0) Red Blood Count 2.53 x10^6/uL (4.30-5.70) Hemoglobin 7.1 g/dL (13.0-17.5) Hematocrit 21.5 % (39.0-53.0) Mean Corpuscular Volume 85 fL (79-100) Mean Corpuscular Hemoglobin 28 pg (25-35) Mean Corpuscular Hemoglobin Concent 33 g/dL (31-37) Red Cell Distribution Width 13.9 % (11.5-14.5) Platelet Count 426 x10^3/uL (140-400) Neutrophils (%) (Auto) 68 % (31-73) Lymphocytes (%) (Auto) 10 % (24-48) Monocytes (%) (Auto) 15 % (0-9) Eosinophils (%) (Auto) 6 % (0-3) Basophils (%) (Auto) 0 % (0-3) Neutrophils # (Auto) 5.6 x10^3uL (1.8-7.7) Lymphocytes # (Auto) 0.8 x10^3/uL (1.0-4.8) Monocytes # (Auto) 1.2 x10^3/uL (0.0-1.1) Eosinophils # (Auto) 0.5 x10^3/uL (0.0-0.7) Basophils # (Auto) 0.0 x10^3/uL (0.0-0.2) Sodium Level 133 mmol/L (136-145) Potassium Level 4.0 mmol/L (3.5-5.1) Chloride Level 100 mmol/L (98-107) Carbon Dioxide Level 28 mmol/L (21-32) Anion Gap 5 (6-14) Blood Urea Nitrogen 17 mg/dL (8-26) Creatinine 1.0 mg/dL (0.7-1.3) Estimated GFR (Cockcroft-Gault) 74.8 Glucose Level 88 mg/dL (70-99) Calcium Level 7.8 mg/dL (8.5-10.1) Laboratory Tests Test 06/20/17 16:53 06/20/17 21:30 06/21/17 05:50 Glucose (Fingerstick) 111 mg/dL (70-99) 93 mg/dL (70-99) White Blood Count 8.2 x10^3/uL (4.0-11.0) Red Blood Count 2.53 x10^6/uL (4.30-5.70) Hemoglobin 7.1 g/dL (13.0-17.5) Hematocrit 21.5 % (39.0-53.0) Mean Corpuscular Volume 85 fL (79-100) Mean Corpuscular Hemoglobin 28 pg (25-35) Mean Corpuscular Hemoglobin Concent 33 g/dL (31-37) Red Cell Distribution Width 13.9 % (11.5-14.5) Platelet Count 426 x10^3/uL (140-400) Neutrophils (%) (Auto) 68 % (31-73) Lymphocytes (%) (Auto) 10 % (24-48) Monocytes (%) (Auto) 15 % (0-9) Eosinophils (%) (Auto) 6 % (0-3) Basophils (%) (Auto) 0 % (0-3) Neutrophils # (Auto) 5.6 x10^3uL (1.8-7.7) Lymphocytes # (Auto) 0.8 x10^3/uL (1.0-4.8) Monocytes # (Auto) 1.2 x10^3/uL (0.0-1.1) Eosinophils # (Auto) 0.5 x10^3/uL (0.0-0.7) Basophils # (Auto) 0.0 x10^3/uL (0.0-0.2) Sodium Level 133 mmol/L (136-145) Potassium Level 4.0 mmol/L (3.5-5.1) Chloride Level 100 mmol/L (98-107) Carbon Dioxide Level 28 mmol/L (21-32) Anion Gap 5 (6-14) Blood Urea Nitrogen 17 mg/dL (8-26) Creatinine 1.0 mg/dL (0.7-1.3) Estimated GFR (Cockcroft-Gault) 74.8 Glucose Level 88 mg/dL (70-99) Calcium Level 7.8 mg/dL (8.5-10.1) I have reviewed the following Hb noted, albumin noted Problem List Problems Medical Problems: (1) Abdominal pain Status: Acute (2) Elevated brain natriuretic peptide (BNP) level Status: Acute (3) Hypomagnesemia Status: Acute (4) Perforated abdominal viscus Status: Acute Assessment/Plan s/p sigmoid resection for perforation fevers anemia no growth so far on swab of wound TPN is off add IV albumin discharge planning considering a stent at a rehab facility Problems: MARY MARTINEZ MD Jun 21, 2017 13:11
--- NOTE | 2017-06-21 14:11 | PDOC ---
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 sepsis with peritonitis Persistent hypomagnesemia HTN HLD NEW onset afib with RVR, sinus now hypokalemia, corrected Elcoholism, hx DESTINEE, dehydration, vasomotor mild malnutrition HYPophosphatemia, corrected Acute on chronic sciatica OCD, but no home meds listed anemia, chronic dz, iron deficiency plan: fu with id, sx back to meropenum, vanco with ID on 06/16 CXR repeated 06/16 not significant on full liquid, advance to gi soft 06/20 dc TPN 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 Vitals Vitals Vital Signs Date Time Temp Pulse Resp B/P (MAP) Pulse Ox O2 Delivery O2 Flow Rate FiO2 06/21/17 13:24 20 94 Room Air 2.0 06/21/17 11:16 100.2 91 143/66 (91) 100.2 Physical Exam Physical Exam General: Alert, Oriented X3, No acute distress Heart: Regular rate, Normal S1, Normal S2, No murmurs Lungs: Clear Abdomen: Soft, Other (some soft stool in the ostomy bag) Extremities: No edema, Normal pulses Skin: No rashes, No breakdown Labs LABS Laboratory Tests Test 06/20/17 16:53 06/20/17 21:30 06/21/17 05:50 Glucose (Fingerstick) 111 mg/dL (70-99) 93 mg/dL (70-99) White Blood Count 8.2 x10^3/uL (4.0-11.0) Red Blood Count 2.53 x10^6/uL (4.30-5.70) Hemoglobin 7.1 g/dL (13.0-17.5) Hematocrit 21.5 % (39.0-53.0) Mean Corpuscular Volume 85 fL (79-100) Mean Corpuscular Hemoglobin 28 pg (25-35) Mean Corpuscular Hemoglobin Concent 33 g/dL (31-37) Red Cell Distribution Width 13.9 % (11.5-14.5) Platelet Count 426 x10^3/uL (140-400) Neutrophils (%) (Auto) 68 % (31-73) Lymphocytes (%) (Auto) 10 % (24-48) Monocytes (%) (Auto) 15 % (0-9) Eosinophils (%) (Auto) 6 % (0-3) Basophils (%) (Auto) 0 % (0-3) Neutrophils # (Auto) 5.6 x10^3uL (1.8-7.7) Lymphocytes # (Auto) 0.8 x10^3/uL (1.0-4.8) Monocytes # (Auto) 1.2 x10^3/uL (0.0-1.1) Eosinophils # (Auto) 0.5 x10^3/uL (0.0-0.7) Basophils # (Auto) 0.0 x10^3/uL (0.0-0.2) Sodium Level 133 mmol/L (136-145) Potassium Level 4.0 mmol/L (3.5-5.1) Chloride Level 100 mmol/L (98-107) Carbon Dioxide Level 28 mmol/L (21-32) Anion Gap 5 (6-14) Blood Urea Nitrogen 17 mg/dL (8-26) Creatinine 1.0 mg/dL (0.7-1.3) Estimated GFR (Cockcroft-Gault) 74.8 Glucose Level 88 mg/dL (70-99) Calcium Level 7.8 mg/dL (8.5-10.1) Assessment and Plan Assessmemt and Plan Problems Medical Problems: (1) Abdominal pain Status: Acute (2) Elevated brain natriuretic peptide (BNP) level Status: Acute (3) Hypomagnesemia Status: Acute (4) Perforated abdominal viscus Status: Acute Problems: Comment Review of Relevant I have reviewed the following items ananda (where applicable) has been applied. Labs Laboratory Tests Test 06/19/17 15:27 06/19/17 20:34 06/20/17 05:06 10/23/17 07:26 Glucose (Fingerstick) 129 mg/dL (70-99) 130 mg/dL (70-99) 117 mg/dL (70-99) White Blood Count 8.6 x10^3/uL (4.0-11.0) Red Blood Count 2.82 x10^6/uL (4.30-5.70) Hemoglobin 8.1 g/dL (13.0-17.5) Hematocrit 24.1 % (39.0-53.0) Mean Corpuscular Volume 85 fL (79-100) Mean Corpuscular Hemoglobin 29 pg (25-35) Mean Corpuscular Hemoglobin Concent 34 g/dL (31-37) Red Cell Distribution Width 13.6 % (11.5-14.5) Platelet Count 495 x10^3/uL (140-400) Neutrophils (%) (Auto) 68 % (31-73) Lymphocytes (%) (Auto) 12 % (24-48) Monocytes (%) (Auto) 13 % (0-9) Eosinophils (%) (Auto) 5 % (0-3) Basophils (%) (Auto) 1 % (0-3) Neutrophils # (Auto) 5.8 x10^3uL (1.8-7.7) Lymphocytes # (Auto) 1.0 x10^3/uL (1.0-4.8) Monocytes # (Auto) 1.1 x10^3/uL (0.0-1.1) Eosinophils # (Auto) 0.5 x10^3/uL (0.0-0.7) Basophils # (Auto) 0.1 x10^3/uL (0.0-0.2) Sodium Level 134 mmol/L (136-145) Potassium Level 4.0 mmol/L (3.5-5.1) Chloride Level 99 mmol/L (98-107) Carbon Dioxide Level 29 mmol/L (21-32) Anion Gap 6 (6-14) Blood Urea Nitrogen 16 mg/dL (8-26) Creatinine 1.0 mg/dL (0.7-1.3) Estimated GFR (Cockcroft-Gault) 74.8 Glucose Level 96 mg/dL (70-99) Calcium Level 8.2 mg/dL (8.5-10.1) Albumin 1.6 g/dL (3.4-5.0) Test 06/20/17 08:45 06/20/17 11:40 06/20/17 16:53 06/20/17 21:30 Stool Occult Blood Positive (NEG) Glucose (Fingerstick) 119 mg/dL (70-99) 111 mg/dL (70-99) 93 mg/dL (70-99) Test 06/21/17 05:50 White Blood Count 8.2 x10^3/uL (4.0-11.0) Red Blood Count 2.53 x10^6/uL (4.30-5.70) Hemoglobin 7.1 g/dL (13.0-17.5) Hematocrit 21.5 % (39.0-53.0) Mean Corpuscular Volume 85 fL (79-100) Mean Corpuscular Hemoglobin 28 pg (25-35) Mean Corpuscular Hemoglobin Concent 33 g/dL (31-37) Red Cell Distribution Width 13.9 % (11.5-14.5) Platelet Count 426 x10^3/uL (140-400) Neutrophils (%) (Auto) 68 % (31-73) Lymphocytes (%) (Auto) 10 % (24-48) Monocytes (%) (Auto) 15 % (0-9) Eosinophils (%) (Auto) 6 % (0-3) Basophils (%) (Auto) 0 % (0-3) Neutrophils # (Auto) 5.6 x10^3uL (1.8-7.7) Lymphocytes # (Auto) 0.8 x10^3/uL (1.0-4.8) Monocytes # (Auto) 1.2 x10^3/uL (0.0-1.1) Eosinophils # (Auto) 0.5 x10^3/uL (0.0-0.7) Basophils # (Auto) 0.0 x10^3/uL (0.0-0.2) Sodium Level 133 mmol/L (136-145) Potassium Level 4.0 mmol/L (3.5-5.1) Chloride Level 100 mmol/L (98-107) Carbon Dioxide Level 28 mmol/L (21-32) Anion Gap 5 (6-14) Blood Urea Nitrogen 17 mg/dL (8-26) Creatinine 1.0 mg/dL (0.7-1.3) Estimated GFR (Cockcroft-Gault) 74.8 Glucose Level 88 mg/dL (70-99) Calcium Level 7.8 mg/dL (8.5-10.1) Laboratory Tests Test 06/20/17 16:53 06/20/17 21:30 06/21/17 05:50 Glucose (Fingerstick) 111 mg/dL (70-99) 93 mg/dL (70-99) White Blood Count 8.2 x10^3/uL (4.0-11.0) Red Blood Count 2.53 x10^6/uL (4.30-5.70) Hemoglobin 7.1 g/dL (13.0-17.5) Hematocrit 21.5 % (39.0-53.0) Mean Corpuscular Volume 85 fL (79-100) Mean Corpuscular Hemoglobin 28 pg (25-35) Mean Corpuscular Hemoglobin Concent 33 g/dL (31-37) Red Cell Distribution Width 13.9 % (11.5-14.5) Platelet Count 426 x10^3/uL (140-400) Neutrophils (%) (Auto) 68 % (31-73) Lymphocytes (%) (Auto) 10 % (24-48) Monocytes (%) (Auto) 15 % (0-9) Eosinophils (%) (Auto) 6 % (0-3) Basophils (%) (Auto) 0 % (0-3) Neutrophils # (Auto) 5.6 x10^3uL (1.8-7.7) Lymphocytes # (Auto) 0.8 x10^3/uL (1.0-4.8) Monocytes # (Auto) 1.2 x10^3/uL (0.0-1.1) Eosinophils # (Auto) 0.5 x10^3/uL (0.0-0.7) Basophils # (Auto) 0.0 x10^3/uL (0.0-0.2) Sodium Level 133 mmol/L (136-145) Potassium Level 4.0 mmol/L (3.5-5.1) Chloride Level 100 mmol/L (98-107) Carbon Dioxide Level 28 mmol/L (21-32) Anion Gap 5 (6-14) Blood Urea Nitrogen 17 mg/dL (8-26) Creatinine 1.0 mg/dL (0.7-1.3) Estimated GFR (Cockcroft-Gault) 74.8 Glucose Level 88 mg/dL (70-99) Calcium Level 7.8 mg/dL (8.5-10.1) Microbiology 06/19/17 Blood Culture - Preliminary, Resulted NO GROWTH AFTER 2 DAYS 06/06/17 Anaerobic/Aerobic Culture - Final, Complete 06/06/17 Anaerobic Culture Result 1 (AISSATOU) - Final, Complete 06/06/17 Anaerobic Culture Result 2 (AISSATOU) - Final, Complete 06/06/17 Aerobic Culture - Final, Complete 06/06/17 Aerobic Culture Result 1 (AISSATOU) - Final, Complete 06/06/17 Aerobic Culture Result 2 (AISSATOU) - Final, Complete 06/06/17 Antimicrobic Susceptibility - Final, Complete 06/20/17 Gram Stain - Final, Complete Medications Current Medications Sodium Chloride 1,000 ml @ 1,000 mls/hr 1X ONCE IV Last administered on 08:22; Start 06/06/17 at 08:30; Stop 06/06/17 at 09:29; Status DC Ondansetron HCl (Zofran) 8 mg 1X ONCE IV Last administered on 06/06/17 08:23 ; Start 06/06/17 at 08:30; Stop 06/06/17 at 08:31; Status DC Morphine Sulfate 5 mg 1X ONCE IV Last administered on 06/06/17 08:29; Start 06/06/17 at 08:30; Stop 06/06/17 at 08:31; Status DC Potassium Chloride (Klor-Con) 40 meq 1X ONCE PO Last administered on 09:31; Start 06/06/17 at 08:30; Stop 06/06/17 at 08:31; Status DC Potassium Chloride/Sodium Chloride 1,000 ml @ 250 mls/hr 1X ONCE IV Last administered on 06/06/17 09:36; Start 06/06/17 at 08:30; Stop 06/06/17 at 12:29 ; Status DC Iohexol (Omnipaque 300 Mg/ml) 60 ml 1X ONCE IV Last administered on 06/06/17 08:51; Start 06/06/17 at 08:45; Stop 06/06/17 at 08:46; Status DC Magnesium Oxide (Magnesium Oxide) 800 mg 1X STAT PO Last administered on 09:31; Start 06/06/17 at 08:37; Stop 06/06/17 at 08:40; Status DC Info (Do NOT chart on this entry -- for MONITORING) 1 each PRN DAILY PRN MC SEE COMMENTS; Start 06/06/17 at 08:45; Stop 06/08/17 at 08:44; Status DC Metronidazole 100 ml @ 100 mls/hr 1X ONCE IV Last administered on 06/06/17 10:00; Start 06/06/17 at 09:30; Stop 06/06/17 at 10:29; Status DC Levofloxacin/ Dextrose (Levaquin Per Pharmacy) 1 each PRN DAILY PRN MC SEE COMMENTS; Start 06/06/17 at 09:30; Stop 06/08/17 at 09:20; Status DC Levofloxacin/ Dextrose 100 ml @ 100 mls/hr 1X ONCE IV ; Start 06/06/17 at 09: 30; Stop 06/06/17 at 10:29; Status DC Levofloxacin/ Dextrose 100 ml @ 100 mls/hr Q24H IV Last administered on 11:36; Start 06/07/17 at 10:00; Stop 06/08/17 at 08:03; Status DC Rocuronium [place] (Zemuron) 100 mg STK-MED ONCE .ROUTE ; Start 06/06/17 at 10: 28; Stop 06/06/17 at 10:29; Status DC Fentanyl Citrate (Fentanyl 5ml Vial) 250 mcg STK-MED ONCE .ROUTE ; Start at 10:28; Stop 06/06/17 at 10:29; Status DC Propofol 20 ml @ As Directed STK-MED ONCE IV ; Start 06/06/17 at 10:32; Stop at 10:33; Status DC Lidocaine HCl (Lidocaine Pf 2% Vial) 5 ml STK-MED ONCE .ROUTE ; Start 06/06/17 at 10:32; Stop 06/06/17 at 10:33; Status DC Ondansetron HCl (Zofran) 4 mg STK-MED ONCE .ROUTE ; Start 06/06/17 at 10:33; Stop 06/06/17 at 10:34; Status DC Dexamethasone Sodium Phosphate (Decadron) 20 mg STK-MED ONCE .ROUTE ; Start 06/06/17 at 10:33; Stop 06/06/17 at 10:34; Status DC Multivitamins 10 ml/Folic Acid 1 mg/Thiamine HCl 100 mg/Ringer's Solution 1, 011.2 ml @ 1,000 mls/ hr 1X ONCE IV ; Start 06/06/17 at 11:30; Stop 06/06/17 at 12:30; Status DC Fentanyl Citrate (Fentanyl 2ml Vial) 25 mcg PRN Q5MIN PRN IV MILD PAIN; Start 06/06/17 at 11:45; Stop 06/07/17 at 11:44; Status DC Fentanyl Citrate (Fentanyl 2ml Vial) 50 mcg PRN Q5MIN PRN IV MODERATE PAIN Last administered on 06/06/17t 17:24; Start 06/06/17 at 11:45; Stop 06/07/17 at 11:44; Status DC Morphine Sulfate 1 mg PRN Q10MIN PRN IV SEVERE PAIN Last administered on t 15:38; Start 06/06/17 at 11:45; Stop 06/07/17 at 11:44; Status DC Ringer's Solution 1,000 ml @ 30 mls/hr Q24H IV ; Start 06/06/17 at 11:39; Stop 06/06/17 at 23:38; Status DC Lidocaine HCl (Xylocaine-Mpf 1% Vial) 2 ml 1X PRN PRN ID IV START; Start at 11:45; Stop 06/07/17 at 11:44; Status DC Hydromorphone HCl (Dilaudid) 0.5 mg PRN Q10MIN PRN IV SEV PAIN, Second choice; Start 06/06/17 at 11:45; Stop 06/07/17 at 11:44; Status DC Prochlorperazine Edisylate (Compazine) 5 mg PACU PRN PRN IV NAUSEA, MRX1; Start 06/06/17 at 11:45; Stop 06/07/17 at 11:44; Status DC Phenylephrine HCl (Pedro-Synephrine Inj) 10 mg STK-MED ONCE .ROUTE ; Start at 11:58; Stop 06/06/17 at 11:59; Status DC Sodium Chloride (Sodium Chloride) 50 ml STK-MED ONCE IJ ; Start 06/06/17 at 11: 58; Stop 06/06/17 at 11:59; Status DC Sevoflurane (Ultane) 90 ml STK-MED ONCE IH ; Start 06/06/17 at 13:52; Stop 06/06 at 13:53; Status DC Neostigmine Methylsulfate 5 mg STK-MED ONCE .ROUTE ; Start 06/06/17 at 13:52; Stop 06/06/17 at 13:53; Status DC Glycopyrrolate (Robinul) 1 mg STK-MED ONCE .ROUTE ; Start 06/06/17 at 13:52; Stop 06/06/17 at 13:53; Status DC Fentanyl Citrate (Fentanyl 2ml Vial) 100 mcg STK-MED ONCE .ROUTE ; Start at 14:18; Stop 06/06/17 at 14:19; Status DC Diphenhydramine HCl (Benadryl) 25 mg PRN Q6HRS PRN IV ITCHING; Start 06/06/17 at 14:30 Enoxaparin Sodium (Lovenox 40mg Syringe) 40 mg Q24H SQ Last administered on 15:00; Start 06/06/17 at 15:00; Stop 06/06/17 at 15:41; Status DC Sodium Chloride (Normal Saline Flush) 3 ml QSHIFT PRN IV AFTER MEDS AND BLOOD DRAWS; Start 06/06/17 at 14:30 Potassium Chloride/Sodium Chloride 1,000 ml @ 100 mls/hr Q10H IV Last administered on 06/07/17 20:00; Start 06/06/17 at 15:00; Stop 06/08/17 at 09: 20; Status DC Hydromorphone HCl 30 ml @ 0 mls/hr CONT PRN PRN IV PROTOCOL; Start 06/06/17 at 14:30; Stop 06/06/17 at 17:30; Status DC Ondansetron HCl (Zofran) 4 mg PRN Q6HRS PRN IV NAUESA, 1ST CHOICE; Start at 14:30 Epinephrine (S2 Racepinephrine) 0.5 ml STK-MED ONCE .ROUTE ; Start 06/06/17 at 14:35; Stop 06/06/17 at 14:36; Status DC Propofol 50 ml @ As Directed STK-MED ONCE IV ; Start 06/06/17 at 14:38; Stop at 14:39; Status DC Succinylcholine Chloride (Anectine) 200 mg STK-MED ONCE .ROUTE ; Start 06/06/17 at 14:40; Stop 06/06/17 at 14:41; Status DC Epinephrine (S2 Racepinephrine) 0.5 ml 1X ONCE NEB Last administered on 14:43; Start 06/06/17 at 14:36; Stop 06/06/17 at 14:43; Status DC Midazolam HCl (Versed) 2 mg STK-MED ONCE .ROUTE ; Start 06/06/17 at 14:48; Stop 06/06/17 at 14:49; Status DC Propofol 100 ml @ 0 mls/hr CONT PRN IV SEE I/O RECORD; Start 06/06/17 at 15:15 ; Stop 06/08/17 at 09:20; Status DC Propofol 50 ml @ As Directed STK-MED ONCE IV ; Start 06/06/17 at 15:03; Stop at 15:04; Status DC Dexamethasone Sodium Phosphate (Decadron) 12 mg 1X ONCE IV Last administered on 06/06/17 15:09; Start 06/06/17 at 15:00; Stop 06/06/17 at 15:06; Status DC Dexamethasone Sodium Phosphate (Decadron) 4 mg STK-MED ONCE .ROUTE ; Start 06/06 at 15:05; Stop 06/06/17 at 15:06; Status DC Propofol 50 ml @ 0 mls/hr 1X ONCE IV Last administered on 06/06/17 15:02; Start 06/06/17 at 15:15; Stop 06/06/17 at 15:16; Status DC Succinylcholine Chloride (Anectine) 200 mg 1X ONCE IV ; Start 06/06/17 at 15:15 ; Stop 06/06/17 at 15:16; Status DC Midazolam HCl (Versed) 2 mg 1X ONCE IV ; Start 06/06/17 at 15:15; Stop at 15:16; Status DC Cellulose 1 each STK-MED ONCE .ROUTE Last administered on 06/06/17 13:35; Start 06/06/17 at 14:19; Stop 06/06/17 at 15:20; Status DC Enoxaparin Sodium (Lovenox 40mg Syringe) 40 mg Q24H SQ Last administered on 08:48; Start 06/07/17 at 09:00; Stop 06/12/17 at 10:16; Status DC Metronidazole 100 ml @ 100 mls/hr Q12HR IV Last administered on 06/12/17 21: 32; Start 06/06/17 at 21:00; Stop 06/13/17 at 07:45; Status DC Multivitamins 10 ml/Folic Acid 1 mg/Thiamine HCl 100 mg/Dextrose/ Lactated Ringer's 1,011.2 ml @ 100 mls/ hr DAILY IV Last administered on 06/07/17 09: 21; Start 06/07/17 at 09:00; Stop 06/08/17 at 08:06; Status DC Lorazepam (Ativan) 2 mg PRN Q4HRS PRN IV ANXIETY / AGITATION; Start 06/06/17 at 15:45; Stop 06/12/17 at 10:16; Status DC Famotidine (Pepcid) 20 mg BID IVP Last administered on 06/08/17 11:18; Start 06/06/17 at 21:00; Stop 06/09/17 at 07:53; Status DC Morphine Sulfate 2 mg PRN Q2HR PRN IV moderate pain Last administered on 22:59; Start 06/06/17 at 15:45 Morphine Sulfate 4 mg PRN Q2HR PRN IV SEVERE PAIN Last administered on 08:31; Start 06/06/17 at 15:45 Ondansetron HCl (Zofran) 4 mg PRN Q6HRS PRN IV NAUSEA/VOMITING; Start 06/06/17 at 15:45; Stop 06/06/17 at 15:45; Status DC Fentanyl Citrate 30 ml @ 0 mls/hr CONT PRN IV PROTOCOL Last administered on 02:54; Start 06/06/17 at 17:30; Stop 06/07/17 at 10:39; Status DC Midazolam HCl 100 ml @ 0 mls/hr CONT PRN IV SEE I/O RECORD; Start 06/06/17 at 23:00; Stop 06/08/17 at 09:20; Status DC Sodium Chloride 1,000 ml @ 1,000 mls/hr 1X ONCE IV Last administered on 23:34; Start 06/06/17 at 23:00; Stop 06/06/17 at 23:59; Status DC Magnesium Sulfate/ Dextrose 50 ml @ 25 mls/hr 1X ONCE IV Last administered on 06/07/17 09:28; Start 06/07/17 at 08:15; Stop 06/07/17 at 10:14; Status DC Info 1 each PRN DAILY PRN MC SEE COMMENTS Last administered on 06/19/17 13:27 ; Start 06/07/17 at 09:30; Stop 06/20/17 at 12:47; Status DC Methylprednisolone Sodium Succinate (SOLU-Medrol 125MG VIAL) 50 mg DAILY IV Last administered on 06/12/17 08:47; Start 06/07/17 at 11:00; Stop 06/12/17 at 10:16; Status DC Hydromorphone HCl 30 ml @ 0 mls/hr CONT PRN PRN IV PROTOCOL Last administered on 06/07/17 11:16; Start 06/07/17 at 10:45; Stop 06/09/17 at 08:57; Status DC Sodium Chloride 90 meq/Potassium Chloride 50 meq/ Potassium Phosphate 13.6 mmol/ Magnesium Sulfate 10 meq/ Calcium Gluconate 10 meq/ Multivitamins 10 ml/Chromium / Copper/Manganese/ Seleni/Zn 1 ml/ Total Parenteral Nutrition/Amino Acids/ Dextrose/ Fat Emulsion Intravenous 1,512 ml @ 63 mls/hr TPN CONT IV Last administered on 06/07/17 22:04; Start 06/07/17 at 22:00; Stop 06/08/17 at 21 :59; Status DC Influenza Virus Vaccine Quadrival (Fluarix Quad [id number] Syringe) 0.5 ml ONCE ONCE VAX IM Last administered on 06/08/17 13:23; Start 06/07/17 at 16:15; Stop 06/07/17 at 16:35; Status DC Pneumococcal Polyvalent Vaccine (Do NOT chart on this placeholder) 1 each PRN 1X PRN MC SEE COMMENTS; Start 06/07/17 at 16:45; Status UNV Pneumococcal Polyvalent Vaccine (Pneumovax 23) 0.5 ml ONCE ONCE VAX IM Last administered on 06/08/17 13:25; Start 06/07/17 at 17:00; Stop 06/07/17 at 17 :01; Status DC Ceftriaxone Sodium 1 gm/ Sodium Chloride 50 ml @ 100 mls/hr Q24H IV Last administered on 06/12/17 08:45; Start 06/08/17 at 09:00; Stop 06/13/17 at 07 :45; Status DC Sodium Phosphate 20 mmol/Dextrose 256.6667 ml @ 64.167 m... 1X ONCE IV Last administered on 06/08/17 08:58; Start 06/08/17 at 09:00; Stop 06/08/17 at 12 :59; Status DC Multi-Ingred Cream/Lotion/Oil/ Oint (Artificial Tears Eye Oint) 1 juvenal PRN Q1HR PRN OU DRY EYE; Start 06/08/17 at 09:15 Sodium Chloride 90 meq/Potassium Chloride 40 meq/ Potassium Phosphate 17 mmol/ Magnesium Sulfate 10 meq/Calcium Gluconate 10 meq/ Multivitamins 10 ml/Chromium / Copper/Manganese/ Seleni/Zn 1 ml/ Total Parenteral Nutrition/Amino Acids/ Dextrose/ Fat Emulsion Intravenous 1,512 ml @ 63 mls/hr TPN CONT IV Last administered on 06/08/17 22:42; Start 06/08/17 at 22:00; Stop 06/09/17 at 21 :59; Status DC Diclofenac Sodium (Voltaren) 1 juvenal BID TP Last administered on 06/16/17 09:16 ; Start 06/08/17 at 21:00 Oxycodone/ Acetaminophen (Percocet 10/325) 1 tab PRN Q4HRS PRN PO pain Last administered on 06/15/17 08:48; Start 06/09/17 at 08:00; Stop 06/15/17 at 10 :39; Status DC Magnesium Sulfate/ Dextrose 50 ml @ 25 mls/hr 1X ONCE IV Last administered on 06/09/17 09:31; Start 06/09/17 at 08:00; Stop 06/09/17 at 09:59; Status DC Potassium Phosphate (K-Phos Original) 500 mg BID PO Last administered on 09:04; Start 06/09/17 at 09:00 Lidocaine (Lidoderm) 1 patch DAILY TD Last administered on 06/09/17 09:36; Start 06/09/17 at 09:00; Stop 06/10/17 at 20:50; Status DC Potassium Phosphate 13.6 mmol/Sodium Chloride 104.5333 ml @ 52.267 m... 1X ONCE IV Last administered on 06/09/17 13:51; Start 06/09/17 at 13:30; Stop 06/09/17 at 15:29; Status DC Sodium Chloride 40 meq/Sodium Acetate 50 meq/ Potassium Chloride 40 meq/ Potassium Phosphate 20 mmol/ Magnesium Sulfate 15 meq/Calcium Gluconate 10 meq/ Multivitamins 10 ml/Chromium/ Copper/Manganese/ Seleni/Zn 1 ml/ Total Parenteral Nutrition/Amino Acids/Dextrose/ Fat Emulsion Intravenous 1,512 ml @ 63 mls/hr TPN CONT IV Last administered on 06/09/17 22:11; Start 06/09/17 at 22:00; Stop 06/10/17 at 21:59; Status DC Potassium Chloride (Klor-Con) 40 meq 1X ONCE PO Last administered on 10:40; Start 06/10/17 at 09:30; Stop 06/10/17 at 09:31; Status DC Potassium Chloride (Klor-Con) 20 meq [id number] PO Last administered on 09:04; Start 06/11/17 at 08:00 Magnesium Sulfate/ Dextrose 50 ml @ 25 mls/hr 1X ONCE IV Last administered on 06/10/17 10:38; Start 06/10/17 at 10:00; Stop 06/10/17 at 11:59; Status DC Sodium Chloride 40 meq/Sodium Acetate 50 meq/ Potassium Acetate 60 meq/ Potassium Phosphate 18 mmol/ Magnesium Sulfate 18 meq/Calcium Gluconate 10 meq/ Multivitamins 10 ml/Chromium/ Copper/Manganese/ Seleni/Zn 1 ml/ Total Parenteral Nutrition/Amino Acids/Dextrose/ Fat Emulsion Intravenous 1,512 ml @ 63 mls/hr TPN CONT IV Last administered on 06/10/17 21:43; Start 06/10/17 at 22:00; Stop 06/11/17 at 22:00; Status DC Lidocaine (Lidoderm) 1 patch QHS TD Last administered on 06/10/17 21:37; Start 06/10/17 at 21:00; Stop 06/12/17 at 05:01; Status DC Magnesium Sulfate/ Dextrose 100 ml @ 25 mls/hr 1X ONCE IV Last administered on 06/11/17 11:22; Start 06/11/17 at 09:00; Stop 06/11/17 at 12:59; Status DC Lisinopril (Prinivil) 10 mg DAILY PO Last administered on 06/13/17 08:34; Start 06/11/17 at 13:00; Stop 06/13/17 at 09:19; Status DC Metoprolol Succinate (Toprol Xl) 100 mg DAILY PO Last administered on 09:05; Start 06/11/17 at 13:00 Hydrochlorothiazide (Hydrodiuril) 25 mg DAILY PO Last administered on 09:04; Start 06/11/17 at 13:00 Sodium Chloride 40 meq/Sodium Acetate 50 meq/ Potassium Acetate 60 meq/ Potassium Phosphate 18 mmol/ Magnesium Sulfate 18 meq/Calcium Gluconate 10 meq/ Multivitamins 10 ml/Chromium/ Copper/Manganese/ Seleni/Zn 1 ml/ Total Parenteral Nutrition/Amino Acids/Dextrose/ Fat Emulsion Intravenous 1,512 ml @ 63 mls/hr TPN CONT IV Last administered on 06/11/17 21:43; Start 06/11/17 at 22:00; Stop 06/12/17 at 21:59; Status DC Lidocaine (Lidoderm) 1 patch DAILY TD Last administered on 06/21/17 09:03; Start 06/12/17 at 09:00 Hydralazine HCl (Apresoline Inj) 10 mg PRN Q4HRS PRN IVP ELEVATED BP, SEE COMMENTS; Start 06/12/17 at 09:00 Magnesium Sulfate/ Dextrose 100 ml @ 25 mls/hr 1X ONCE IV Last administered on 06/12/17 09:53; Start 06/12/17 at 09:30; Stop 06/12/17 at 13:29; Status DC Magnesium Oxide (Magnesium Oxide) 400 mg DAILY PO Last administered on 09:04; Start 06/12/17 at 09:30 Lorazepam (Ativan) 1 mg PRN Q4HRS PRN IV ANXIETY / AGITATION; Start 06/12/17 at 10:15 Alprazolam (Xanax) 0.5 mg PRN Q8HRS PRN PO ANXIETY / AGITATION; Start at 10:15 Prednisone (Prednisone) 20 mg DAILY PO Last administered on 06/13/17 08:34; Start 06/13/17 at 09:00; Stop 06/13/17 at 15:06; Status DC Sodium Chloride 60 meq/Sodium Acetate 50 meq/ Potassium Acetate 60 meq/ Potassium Phosphate 18 mmol/ Magnesium Sulfate 27 meq/Calcium Gluconate 10 meq/ Multivitamins 10 ml/Chromium/ Copper/Manganese/ Seleni/Zn 1 ml/ Total Parenteral Nutrition/Amino Acids/Dextrose/ Fat Emulsion Intravenous 1,512 ml @ 63 mls/hr TPN CONT IV Last administered on 06/12/17 21:33; Start 06/12/17 at 22:00; Stop 06/13/17 at 21:59; Status DC Metronidazole (Flagyl) 500 mg Q12HR PO Last administered on 06/15/17 21:48; Start 06/13/17 at 09:00; Stop 06/16/17 at 09:05; Status DC Cefpodoxime Proxetil (Vantin) 200 mg BID PO Last administered on 06/15/17 21: 49; Start 06/13/17 at 09:00; Stop 06/16/17 at 09:05; Status DC Lisinopril (Prinivil) 20 mg DAILY PO Last administered on 06/21/17 09:06; Start 06/14/17 at 09:00 Lisinopril (Prinivil) 10 mg 1X ONCE PO ; Start 06/13/17 at 09:30; Stop at 09:31; Status DC Docusate Sodium (Colace) 100 mg BID PO Last administered on 06/21/17 09:04; Start 06/13/17 at 11:30 Sodium Chloride 60 meq/Sodium Acetate 50 meq/ Potassium Acetate 60 meq/ Potassium Phosphate 18 mmol/ Magnesium Sulfate 27 meq/Calcium Gluconate 10 meq/ Multivitamins 10 ml/Chromium/ Copper/Manganese/ Seleni/Zn 1 ml/ Total Parenteral Nutrition/Amino Acids/Dextrose/ Fat Emulsion Intravenous 1,512 ml @ 63 mls/hr TPN CONT IV Last administered on 06/13/17 22:31; Start 06/13/17 at 22:00; Stop 06/14/17 at 21:59; Status DC Lisinopril (Prinivil) 10 mg 1X ONCE PO Last administered on 06/13/17t 16:18; Start 06/13/17 at 14:45; Stop 06/13/17 at 14:46; Status DC Polyethylene Glycol (miraLAX PACKET) 17 gm DAILY PO ; Start 06/14/17 at 09:30; Stop 06/14/17 at 11:47; Status DC Magnesium Hydroxide (Milk Of Magnesia) 2,400 mg PRN DAILY PRN PO CONSTIPATION; Start 06/14/17 at 09:30; Stop 06/14/17 at 11:47; Status DC Magnesium Hydroxide (Milk Of Magnesia) 2,400 mg 1X ONCE PO ; Start 06/14/17 at 09:30; Stop 06/14/17 at 09:31; Status Cancel Magnesium Sulfate/ Dextrose 100 ml @ 25 mls/hr 1X ONCE IV Last administered on 06/14/17 12:03; Start 06/14/17 at 10:00; Stop 06/14/17 at 13:59; Status DC Sodium Chloride 80 meq/Sodium Acetate 50 meq/ Potassium Acetate 60 meq/ Potassium Phosphate 18 mmol/ Magnesium Sulfate 27 meq/Calcium Gluconate 10 meq/ Multivitamins 10 ml/Chromium/ Copper/Manganese/ Seleni/Zn 1 ml/ Total Parenteral Nutrition/Amino Acids/Dextrose/ Fat Emulsion Intravenous 1,512 ml @ 63 mls/hr TPN CONT IV Last administered on 06/14/17 22:34; Start 06/14/17 at 22:00; Stop 06/15/17 at 21:59; Status DC Hydromorphone HCl (Dilaudid) 1 mg 1X ONCE IV Last administered on 06/14/17 15:47; Start 06/14/17 at 13:15; Stop 06/14/17 at 13:16; Status DC Iohexol (Omnipaque 300 Mg/ml) 75 ml 1X ONCE IV Last administered on 13:56; Start 06/14/17 at 13:30; Stop 06/14/17 at 13:31; Status DC Info (Do NOT chart on this entry -- for MONITORING) 1 each PRN DAILY PRN MC SEE COMMENTS; Start 06/14/17 at 13:15; Stop 06/16/17 at 13:14; Status DC Oxycodone/ Acetaminophen (Percocet 10) 1 tab Q4HRS PO Last administered on 06/21/17 12:24; Start 06/15/17 at 12:00 Sodium Chloride 80 meq/Sodium Acetate 50 meq/ Potassium Acetate 60 meq/ Potassium Phosphate 18 mmol/ Magnesium Sulfate 27 meq/Calcium Gluconate 10 meq/ Multivitamins 10 ml/Chromium/ Copper/Manganese/ Seleni/Zn 1 ml/ Total Parenteral Nutrition/Amino Acids/Dextrose/ Fat Emulsion Intravenous 1,512 ml @ 63 mls/hr TPN CONT IV Last administered on 06/15/17 22:14; Start 06/15/17 at 22:00; Stop 06/16/17 at 21:59; Status DC Meropenem 1 gm/ Sodium Chloride 100 ml @ 200 mls/hr Q8HRS IV Last administered on 06/21/17 12:24; Start 06/16/17 at 14:00 Vancomycin HCl (Vanco Per Pharmacy) 1 each PRN DAILY PRN MC SEE COMMENTS Last administered on 06/20/17 15:56; Start 06/16/17 at 09:00; Stop 06/21/17 at 08 :16; Status DC Fluconazole/ Sodium Chloride 200 ml @ 100 mls/hr Q24H IV Last administered on 06/20/17 10:39; Start 06/16/17 at 10:00; Stop 06/21/17 at 08:16; Status DC Vancomycin HCl 2 gm/Dextrose 500 ml @ 250 mls/hr 1X ONCE IV Last administered on 06/16/17 11:57; Start 06/16/17 at 11:00; Stop 06/16/17 at 12 :59; Status DC Magnesium Sulfate/ Dextrose 50 ml @ 25 mls/hr 1X ONCE IV Last administered on 06/16/17 11:56; Start 06/16/17 at 10:30; Stop 06/16/17 at 12:30; Status DC Vancomycin HCl 1.25 gm/Dextrose 250 ml @ 167 mls/hr Q12H IV Last administered on 06/21/17 00:01; Start 06/17/17 at 00:00; Stop 06/21/17 at 08:16; Status DC Vancomycin HCl 1 each 1X ONCE MC Last administered on 06/18/17 23:30; Start 06/18/17 at 23:30; Stop 06/18/17 at 23:31; Status DC Sodium Chloride 80 meq/Sodium Acetate 50 meq/ Potassium Acetate 60 meq/ Potassium Phosphate 18 mmol/ Magnesium Sulfate 30 meq/Calcium Gluconate 10 meq/ Multivitamins 10 ml/Chromium/ Copper/Manganese/ Seleni/Zn 1 ml/ Total Parenteral Nutrition/Amino Acids/Dextrose/ Fat Emulsion Intravenous 1,512 ml @ 63 mls/hr TPN CONT IV Last administered on 06/16/17 22:03; Start 06/16/17 at 22:00; Stop 06/17/17 at 21:59; Status DC Lactobacillus Acidophilus (Bacid, Jenniffer-Bid) 1 tab BID PO Last administered on 06/19/17 09:40; Start 06/16/17 at 21:00; Stop 06/19/17 at 09:01; Status DC Magnesium Sulfate/ Dextrose 50 ml @ 25 mls/hr 1X ONCE IV Last administered on 06/17/17 10:00; Start 06/17/17 at 10:00; Stop 06/17/17 at 11:59; Status DC Sodium Chloride 80 meq/Sodium Acetate 50 meq/ Potassium Acetate 60 meq/ Potassium Phosphate 18 mmol/ Magnesium Sulfate 30 meq/Calcium Gluconate 10 meq/ Multivitamins 10 ml/Chromium/ Copper/Manganese/ Seleni/Zn 1 ml/ Total Parenteral Nutrition/Amino Acids/Dextrose/ Fat Emulsion Intravenous 1,512 ml @ 63 mls/hr TPN CONT IV Last administered on 06/17/17 22:00; Start 06/17/17 at 22:00; Stop 06/18/17 at 21:59; Status DC Sodium Chloride 95 meq/Sodium Acetate 50 meq/ Potassium Acetate 60 meq/ Potassium Phosphate 18 mmol/ Magnesium Sulfate 30 meq/Calcium Gluconate 10 meq/ Multivitamins 10 ml/Chromium/ Copper/Manganese/ Seleni/Zn 1 ml/ Total Parenteral Nutrition/Amino Acids/Dextrose/ Fat Emulsion Intravenous 1,512 ml @ 63 mls/hr TPN CONT IV Last administered on 06/18/17 22:06; Start 06/18/17 at 22:00; Stop 06/19/17 at 21:59; Status DC Lactobacillus Rhamnosus (Culturelle) 1 cap BID PO Last administered on 09:04; Start 06/19/17 at 21:00 Sodium Chloride 95 meq/Sodium Acetate 50 meq/ Potassium Acetate 60 meq/ Potassium Phosphate 18 mmol/ Magnesium Sulfate 30 meq/Calcium Gluconate 10 meq/ Multivitamins 10 ml/Chromium/ Copper/Manganese/ Seleni/Zn 1 ml/ Total Parenteral Nutrition/Amino Acids/Dextrose/ Fat Emulsion Intravenous 1,512 ml @ 63 mls/hr TPN CONT IV Last administered on 06/19/17 22:18; Start 06/19/17 at 22:00; Stop 06/20/17 at 21:59; Status DC Chlorhexidine Gluconate (Peridex) 15 ml BID SWSP Last administered on 09:02; Start 06/20/17 at 09:30 Ferrous Sulfate (Feosol) 325 mg DAILYWBKFT PO Last administered on 06/21/17 09:06; Start 06/20/17 at 13:00 Linezolid (Zyvox) 600 mg BID PO Last administered on 06/21/17 09:00; Start 06/21/17 at 09:00 Albumin Human 100 ml @ 100 mls/hr Q6HRS IV ; Start 06/21/17 at 18:00 Active Scripts Active Reported [prednisone taper] Metoprolol Succinate ( Xl ) (Metoprolol Succinate) 100 Mg Tab.er.24h 1 Tab PO DAILY Lisinopril 10 Mg Tablet 1 Tab PO DAILY Hydrochlorothiazide Tablet (Hydrochlorothiazide) 50 Mg Tablet 25 Tab PO DAILY Vitals/I & O Vital Sign - Last 24 Hours 06/20/17 06/20/17 06/20/17 06/20/17 15:00 16:26 19:00 20:00 Temp 98.9 99.7 98.9 99.7 Pulse 72 79 Resp 18 16 B/P (MAP) 110/54 (72) 128/77 (94) Pulse Ox 96 92 O2 Delivery Room Air Room Air Room Air Room Air 06/20/17 06/20/17 06/21/17 06/21/17 20:08 23:00 00:01 04:00 Temp 98.8 98.9 98.8 98.9 Pulse 83 76 Resp 18 16 B/P (MAP) 126/63 (84) 111/57 (75) Pulse Ox 96 94 O2 Delivery Room Air Room Air Room Air Room Air 1006/21/17 06/21/17 06/21/17 04:05 07:00 08:00 09:04 Temp 100.8 100.8 Pulse 83 Resp 18 20 B/P (MAP) 158/70 (99) Pulse Ox 95 95 O2 Delivery Room Air Room Air Room Air Room Air O2 Flow Rate 2.0 2.0 06/21/17 06/21/17 06/21/17 06/21/17 09:05 09:06 11:16 12:24 Temp 100.2 100.2 Pulse 83 83 91 Resp 18 20 B/P (MAP) 158/70 158/70 143/66 (91) Pulse Ox 94 94 O2 Delivery Room Air Room Air O2 Flow Rate 2.0 06/21/17 13:24 Resp 20 Pulse Ox 94 O2 Delivery Room Air O2 Flow Rate 2.0 KRISTIN PEÑA MD Jun 21, 2017 14:11
[2017-06-21 15:10] VITALS: BP 107/61
[2017-06-21] MEDS: ALBUMIN HUMAN 25% 100 ML IV SCH ×2 (17:12→23:46)
[2017-06-21 19:30] VITALS: BP 109/56
[2017-06-21 23:24] VITALS: BP 115/53
[2017-06-22 03:27] VITALS: BP 110/60
[2017-06-22] MEDS: oxyCODONE/APAP 10/325 1 TAB TABLET PO SCH ×4 (04:06→20:30)
[2017-06-22 05:08] LABS: BASO # 0.1 x10^3/uL (0.0-0.2); BASO % 1 % (0-3); EOS % 5 % (0-3); HEMATOCRIT 24.1 % (39.0-53.0); HEMOGLOBIN 8.1 g/dL (13.0-17.5); LYMPH # 1.2 x10^3/uL (1.0-4.8); LYMPH % 15 % (24-48); MEAN CORPUSCULAR HEMOGLOBIN 28 pg (25-35); MEAN CORPUSCULAR HGB CONC 34 g/dL (31-37); MEAN CORPUSCULAR VOLUME 84 fL (79-100); MONO % 15 % (0-9); NEUT % 65 % (31-73); PLATELET COUNT 508 x10^3/uL (140-400); RED BLOOD COUNT 2.86 x10^6/uL (4.30-5.70); WHITE BLOOD COUNT 7.7 x10^3/uL (4.0-11.0)
[2017-06-22 05:27] LABS: CALCIUM 8.8 mg/dL (8.5-10.1); CREATININE 1.1 mg/dL (0.7-1.3)
[2017-06-22] MEDS: ALBUMIN HUMAN 25% 100 ML IV SCH ×3 (05:37→18:23)
[2017-06-22] MEDS: MEROPENEM 1 GM in IV NORMAL SALINE 100ML 100 ML IV SCH ×3 (06:22→20:34)
[2017-06-22 07:00] VITALS: BP 136/77
[2017-06-22] MEDS ORDERED: oxyCODONE/APAP 10/325 1 TAB TABLET PO ONE (08:20)
[2017-06-22] MEDS: POTASSIUM PHOSPHATE,MONOBASIC 500 MG TABLET. PO SCH ×2 (08:47→20:32)
[2017-06-22] MEDS: LIDOCAINE (700MG/PATCH) PATCH. TD SCH (08:49)
--- NOTE | 2017-06-22 08:58 | PDOC ---
Infectious Disease Note Subjective Subjective Pain controlled at the moment but frustrated with nonadherence to schedule for meds Feels ok this am PICC not drawing ROS ROS GEN: Denies fevers, chills, sweats but feels temp in room not regulated well HEENT: Denies blurred vision, sore throat CV: Denies chest pain RESP: Denies shortness of air, cough GI: Denies n/v/d NEURO: Denies confusion, dizziness MSK: Denies weakness, joint pain/swelling Vital Sign Vital Signs Vital Signs Date Time Temp Pulse Resp B/P (MAP) Pulse Ox O2 Delivery O2 Flow Rate FiO2 06/22/17 08:30 16 Room Air 06/22/17 03:27 99.1 88 110/60 (77) 94 99.1 06/21/17 16:05 2.0 Physical Exam PHYSICAL EXAM GENERAL: NAD, Alert HEENT: PERRL, OC/OP -clear NECK: Supple, no JVD, no LN LUNGS: Clear HEART: S1S2, no gallop, no murmur ABD: Soft, NT, Ostomy - clean. 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, oriented x 3, no focal neurologic deficit SKIN: No rash IV: PICC LUE - clean Labs Lab Laboratory Tests Test 06/22/17 04:37 06/22/17 07:16 White Blood Count 7.7 x10^3/uL (4.0-11.0) Red Blood Count 2.86 x10^6/uL (4.30-5.70) Hemoglobin 8.1 g/dL (13.0-17.5) Hematocrit 24.1 % (39.0-53.0) Mean Corpuscular Volume 84 fL (79-100) Mean Corpuscular Hemoglobin 28 pg (25-35) Mean Corpuscular Hemoglobin Concent 34 g/dL (31-37) Red Cell Distribution Width 14.0 % (11.5-14.5) Platelet Count 508 x10^3/uL (140-400) Neutrophils (%) (Auto) 65 % (31-73) Lymphocytes (%) (Auto) 15 % (24-48) Monocytes (%) (Auto) 15 % (0-9) Eosinophils (%) (Auto) 5 % (0-3) Basophils (%) (Auto) 1 % (0-3) Neutrophils # (Auto) 5.0 x10^3uL (1.8-7.7) Lymphocytes # (Auto) 1.2 x10^3/uL (1.0-4.8) Monocytes # (Auto) 1.1 x10^3/uL (0.0-1.1) Eosinophils # (Auto) 0.4 x10^3/uL (0.0-0.7) Basophils # (Auto) 0.1 x10^3/uL (0.0-0.2) Sodium Level 133 mmol/L (136-145) Potassium Level 4.0 mmol/L (3.5-5.1) Chloride Level 97 mmol/L (98-107) Carbon Dioxide Level 28 mmol/L (21-32) Anion Gap 8 (6-14) Blood Urea Nitrogen 15 mg/dL (8-26) Creatinine 1.1 mg/dL (0.7-1.3) Estimated GFR (Cockcroft-Gault) 67.0 Glucose Level 98 mg/dL (70-99) Calcium Level 8.8 mg/dL (8.5-10.1) Albumin 2.6 g/dL (3.4-5.0) Glucose (Fingerstick) 93 mg/dL (70-99) Micro CT abd 06/14 Impression: 1. Expected postoperative findings of partial colectomy and diverting colostomy. Small amount of gas within the abdomen is decreased from prior study, may be related to the remaining surgical drain. 2. No acute intra-abdominal findings. 3. Right lower lobe consolidation with air bronchograms concerning for pneumonia. Small right and trace left pleural effusion. Objective Assessment Fever - up again currently 99.4. ? meds (Vanc d/c'd ? pain med vs ID vs line) cults neg Perforated viscus with fecal peritonitis, E. coli & Prevotella spp. CT 06/14 reviewed. 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 Drains removed. still mild erythema about the wound Abdominal pain, better Respiratory failure - better - some RLL consolidation most recent CT with atelectasis/infiltrate Chronic back pain HTN Leukocytosis, ? steroids - off steroids 06/13. better Plan Plan of Care D/c'd vanc 06/21 r/o drug fever, & Fluconazole Cont meropenem try to wean soon/Zyvox Will D/c PICC and if fever persist will need repeat CT scan monitor incision and temp F/u wound cults f/u am labs Supportive care THALIA MORALES MD Jun 22, 2017 08:58
[2017-06-22] MEDS: CHLORHEXIDINE 0.12% 15 ML MOUTHWASH. SWSP SCH ×2 (09:00→20:32)
[2017-06-22] MEDS: DICLOFENAC SODIUM 1% TOPICAL GEL 100GM TUBE. TP SCH ×2 (09:00→20:32)
[2017-06-22 11:00] VITALS: BP 119/68
[2017-06-22] MEDS: hydroCHLOROthiazide 25 MG TABLET PO SCH (11:28)
[2017-06-22] MEDS: LINEZOLID 600 MG TABLET PO SCH ×2 (11:28→20:31)
[2017-06-22] MEDS: DOCUSATE SODIUM 100 MG CAPSULE. PO SCH ×2 (11:28→20:30)
[2017-06-22] MEDS: FERROUS SULFATE 325 MG TABLET. PO SCH (11:28)
[2017-06-22] MEDS: METOPROLOL SUCC 24HR ER 100 MG TAB.ER.24H. PO SCH (11:29)
[2017-06-22] MEDS: MAGNESIUM OXIDE 400 MG TABLET PO SCH (12:10)
[2017-06-22] MEDS: LACTOBACILLUS RHAMNOSUS GG 1 CAPSULE. PO SCH ×2 (12:10→20:31)
[2017-06-22] MEDS: POTASSIUM CHLORIDE 20 MEQ TABLET.ER. PO SCH (12:10)
[2017-06-22] MEDS: LISINOPRIL 20 MG TABLET PO SCH (12:10)
--- NOTE | 2017-06-22 13:38 | PDOC ---
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 sepsis with peritonitis Persistent hypomagnesemia HTN HLD NEW onset afib with RVR, sinus now hypokalemia, corrected Elcoholism, hx DESTINEE, dehydration, vasomotor mild malnutrition HYPophosphatemia, corrected Acute on chronic sciatica OCD, but no home meds listed anemia, chronic dz, iron deficiency plan: fu with id, sx back to meropenum, vanco with ID on 06/16 CXR repeated 06/16 not significant on full liquid, advance to gi soft 06/20 dc TPN pain control, off [employer] HEL[employer] HEAD likely depressed gi, dvt ppx on HTN meds PTOT check anemia panel, add iron po daily repeated BCX 06/16 neg GONZALES remove by sx 06/20 CONT HAving low grade fever, has PICC line, repeated BCX neg, fu with id, may need remove PICC line, or abd CT. pt also refused taking his am meds together, which is ok if take them seperately. hope dc soon History of Present Illness History of Present Illness ROS: no chills, sob or chest pain T 100.8 had some solid stool in colostomy still has abd pain a lot, but able to walk well WBC normal now pt not like me to exam him , always say he was exhausted when i go to see him at 9-10am in the morning. Vitals Vitals Vital Signs Date Time Temp Pulse Resp B/P (MAP) Pulse Ox O2 Delivery O2 Flow Rate FiO2 06/22/17 12:10 16 Room Air 06/22/17 12:10 85 119/68 06/22/17 07:00 99.4 91 99.4 06/21/17 16:05 2.0 Physical Exam Physical Exam General: Alert, Oriented X3, No acute distress Heart: Regular rate, Normal S1, Normal S2, No murmurs Lungs: Clear Abdomen: Soft, Other (some soft stool in the ostomy bag) Extremities: No edema, Normal pulses Skin: No rashes, No breakdown Labs LABS Laboratory Tests Test 06/22/17 04:37 06/22/17 07:16 06/22/17 11:30 White Blood Count 7.7 x10^3/uL (4.0-11.0) Red Blood Count 2.86 x10^6/uL (4.30-5.70) Hemoglobin 8.1 g/dL (13.0-17.5) Hematocrit 24.1 % (39.0-53.0) Mean Corpuscular Volume 84 fL (79-100) Mean Corpuscular Hemoglobin 28 pg (25-35) Mean Corpuscular Hemoglobin Concent 34 g/dL (31-37) Red Cell Distribution Width 14.0 % (11.5-14.5) Platelet Count 508 x10^3/uL (140-400) Neutrophils (%) (Auto) 65 % (31-73) Lymphocytes (%) (Auto) 15 % (24-48) Monocytes (%) (Auto) 15 % (0-9) Eosinophils (%) (Auto) 5 % (0-3) Basophils (%) (Auto) 1 % (0-3) Neutrophils # (Auto) 5.0 x10^3uL (1.8-7.7) Lymphocytes # (Auto) 1.2 x10^3/uL (1.0-4.8) Monocytes # (Auto) 1.1 x10^3/uL (0.0-1.1) Eosinophils # (Auto) 0.4 x10^3/uL (0.0-0.7) Basophils # (Auto) 0.1 x10^3/uL (0.0-0.2) Sodium Level 133 mmol/L (136-145) Potassium Level 4.0 mmol/L (3.5-5.1) Chloride Level 97 mmol/L (98-107) Carbon Dioxide Level 28 mmol/L (21-32) Anion Gap 8 (6-14) Blood Urea Nitrogen 15 mg/dL (8-26) Creatinine 1.1 mg/dL (0.7-1.3) Estimated GFR (Cockcroft-Gault) 67.0 Glucose Level 98 mg/dL (70-99) Calcium Level 8.8 mg/dL (8.5-10.1) Albumin 2.6 g/dL (3.4-5.0) Glucose (Fingerstick) 93 mg/dL (70-99) 104 mg/dL (70-99) Assessment and Plan Assessmemt and Plan Problems Medical Problems: (1) Abdominal pain Status: Acute (2) Elevated brain natriuretic peptide (BNP) level Status: Acute (3) Hypomagnesemia Status: Acute (4) Perforated abdominal viscus Status: Acute Problems: Comment Review of Relevant I have reviewed the following items ananda (where applicable) has been applied. Labs Laboratory Tests Test 06/20/17 16:53 06/20/17 21:30 06/21/17 05:50 06/22/17 04:37 Glucose (Fingerstick) 111 mg/dL (70-99) 93 mg/dL (70-99) White Blood Count 8.2 x10^3/uL (4.0-11.0) 7.7 x10^3/uL (4.0-11.0) Red Blood Count 2.53 x10^6/uL (4.30-5.70) 2.86 x10^6/uL (4.30-5.70) Hemoglobin 7.1 g/dL (13.0-17.5) 8.1 g/dL (13.0-17.5) Hematocrit 21.5 % (39.0-53.0) 24.1 % (39.0-53.0) Mean Corpuscular Volume 85 fL (79-100) 84 fL (79-100) Mean Corpuscular Hemoglobin 28 pg (25-35) 28 pg (25-35) Mean Corpuscular Hemoglobin Concent 33 g/dL (31-37) 34 g/dL (31-37) Red Cell Distribution Width 13.9 % (11.5-14.5) 14.0 % (11.5-14.5) Platelet Count 426 x10^3/uL (140-400) 508 x10^3/uL (140-400) Neutrophils (%) (Auto) 68 % (31-73) 65 % (31-73) Lymphocytes (%) (Auto) 10 % (24-48) 15 % (24-48) Monocytes (%) (Auto) 15 % (0-9) 15 % (0-9) Eosinophils (%) (Auto) 6 % (0-3) 5 % (0-3) Basophils (%) (Auto) 0 % (0-3) 1 % (0-3) Neutrophils # (Auto) 5.6 x10^3uL (1.8-7.7) 5.0 x10^3uL (1.8-7.7) Lymphocytes # (Auto) 0.8 x10^3/uL (1.0-4.8) 1.2 x10^3/uL (1.0-4.8) Monocytes # (Auto) 1.2 x10^3/uL (0.0-1.1) 1.1 x10^3/uL (0.0-1.1) Eosinophils # (Auto) 0.5 x10^3/uL (0.0-0.7) 0.4 x10^3/uL (0.0-0.7) Basophils # (Auto) 0.0 x10^3/uL (0.0-0.2) 0.1 x10^3/uL (0.0-0.2) Sodium Level 133 mmol/L (136-145) 133 mmol/L (136-145) Potassium Level 4.0 mmol/L (3.5-5.1) 4.0 mmol/L (3.5-5.1) Chloride Level 100 mmol/L (98-107) 97 mmol/L (98-107) Carbon Dioxide Level 28 mmol/L (21-32) 28 mmol/L (21-32) Anion Gap 5 (6-14) 8 (6-14) Blood Urea Nitrogen 17 mg/dL (8-26) 15 mg/dL (8-26) Creatinine 1.0 mg/dL (0.7-1.3) 1.1 mg/dL (0.7-1.3) Estimated GFR (Cockcroft-Gault) 74.8 67.0 Glucose Level 88 mg/dL (70-99) 98 mg/dL (70-99) Calcium Level 7.8 mg/dL (8.5-10.1) 8.8 mg/dL (8.5-10.1) Albumin 2.6 g/dL (3.4-5.0) Test 06/22/17 07:16 06/22/17 11:30 Glucose (Fingerstick) 93 mg/dL (70-99) 104 mg/dL (70-99) Laboratory Tests Test 06/22/17 04:37 06/22/17 07:16 06/22/17 11:30 White Blood Count 7.7 x10^3/uL (4.0-11.0) Red Blood Count 2.86 x10^6/uL (4.30-5.70) Hemoglobin 8.1 g/dL (13.0-17.5) Hematocrit 24.1 % (39.0-53.0) Mean Corpuscular Volume 84 fL (79-100) Mean Corpuscular Hemoglobin 28 pg (25-35) Mean Corpuscular Hemoglobin Concent 34 g/dL (31-37) Red Cell Distribution Width 14.0 % (11.5-14.5) Platelet Count 508 x10^3/uL (140-400) Neutrophils (%) (Auto) 65 % (31-73) Lymphocytes (%) (Auto) 15 % (24-48) Monocytes (%) (Auto) 15 % (0-9) Eosinophils (%) (Auto) 5 % (0-3) Basophils (%) (Auto) 1 % (0-3) Neutrophils # (Auto) 5.0 x10^3uL (1.8-7.7) Lymphocytes # (Auto) 1.2 x10^3/uL (1.0-4.8) Monocytes # (Auto) 1.1 x10^3/uL (0.0-1.1) Eosinophils # (Auto) 0.4 x10^3/uL (0.0-0.7) Basophils # (Auto) 0.1 x10^3/uL (0.0-0.2) Sodium Level 133 mmol/L (136-145) Potassium Level 4.0 mmol/L (3.5-5.1) Chloride Level 97 mmol/L (98-107) Carbon Dioxide Level 28 mmol/L (21-32) Anion Gap 8 (6-14) Blood Urea Nitrogen 15 mg/dL (8-26) Creatinine 1.1 mg/dL (0.7-1.3) Estimated GFR (Cockcroft-Gault) 67.0 Glucose Level 98 mg/dL (70-99) Calcium Level 8.8 mg/dL (8.5-10.1) Albumin 2.6 g/dL (3.4-5.0) Glucose (Fingerstick) 93 mg/dL (70-99) 104 mg/dL (70-99) Microbiology 06/19/17 Blood Culture - Preliminary, Resulted NO GROWTH AFTER 2 DAYS 06/06/17 Anaerobic/Aerobic Culture - Final, Complete 06/06/17 Anaerobic Culture Result 1 (AISSATOU) - Final, Complete 06/06/17 Anaerobic Culture Result 2 (AISSATOU) - Final, Complete 06/06/17 Aerobic Culture - Final, Complete 06/06/17 Aerobic Culture Result 1 (AISSATOU) - Final, Complete 06/06/17 Aerobic Culture Result 2 (AISSATOU) - Final, Complete 06/06/17 Antimicrobic Susceptibility - Final, Complete 06/20/17 Gram Stain - Final, Complete Medications Current Medications Sodium Chloride 1,000 ml @ 1,000 mls/hr 1X ONCE IV Last administered on 08:22; Start 06/06/17 at 08:30; Stop 06/06/17 at 09:29; Status DC Ondansetron HCl (Zofran) 8 mg 1X ONCE IV Last administered on 06/06/17 08:23 ; Start 06/06/17 at 08:30; Stop 06/06/17 at 08:31; Status DC Morphine Sulfate 5 mg 1X ONCE IV Last administered on 06/06/17 08:29; Start 06/06/17 at 08:30; Stop 06/06/17 at 08:31; Status DC Potassium Chloride (Klor-Con) 40 meq 1X ONCE PO Last administered on 09:31; Start 06/06/17 at 08:30; Stop 06/06/17 at 08:31; Status DC Potassium Chloride/Sodium Chloride 1,000 ml @ 250 mls/hr 1X ONCE IV Last administered on 06/06/17 09:36; Start 06/06/17 at 08:30; Stop 06/06/17 at 12:29 ; Status DC Iohexol (Omnipaque 300 Mg/ml) 60 ml 1X ONCE IV Last administered on 06/06/17 08:51; Start 06/06/17 at 08:45; Stop 06/06/17 at 08:46; Status DC Magnesium Oxide (Magnesium Oxide) 800 mg 1X STAT PO Last administered on 09:31; Start 06/06/17 at 08:37; Stop 06/06/17 at 08:40; Status DC Info (Do NOT chart on this entry -- for MONITORING) 1 each PRN DAILY PRN MC SEE COMMENTS; Start 06/06/17 at 08:45; Stop 06/08/17 at 08:44; Status DC Metronidazole 100 ml @ 100 mls/hr 1X ONCE IV Last administered on 06/06/17t 10:00; Start 06/06/17 at 09:30; Stop 06/06/17 at 10:29; Status DC Levofloxacin/ Dextrose (Levaquin Per Pharmacy) 1 each PRN DAILY PRN MC SEE COMMENTS; Start 06/06/17 at 09:30; Stop 06/08/17 at 09:20; Status DC Levofloxacin/ Dextrose 100 ml @ 100 mls/hr 1X ONCE IV ; Start 06/06/17 at 09: 30; Stop 06/06/17 at 10:29; Status DC Levofloxacin/ Dextrose 100 ml @ 100 mls/hr Q24H IV Last administered on t 11:36; Start 06/07/17 at 10:00; Stop 06/08/17 at 08:03; Status DC Rocuronium [place] (Zemuron) 100 mg STK-MED ONCE .ROUTE ; Start 06/06/17 at 10: 28; Stop 06/06/17 at 10:29; Status DC Fentanyl Citrate (Fentanyl 5ml Vial) 250 mcg STK-MED ONCE .ROUTE ; Start at 10:28; Stop 06/06/17 at 10:29; Status DC Propofol 20 ml @ As Directed STK-MED ONCE IV ; Start 06/06/17 at 10:32; Stop at 10:33; Status DC Lidocaine HCl (Lidocaine Pf 2% Vial) 5 ml STK-MED ONCE .ROUTE ; Start 06/06/17 at 10:32; Stop 06/06/17 at 10:33; Status DC Ondansetron HCl (Zofran) 4 mg STK-MED ONCE .ROUTE ; Start 06/06/17 at 10:33; Stop 06/06/17 at 10:34; Status DC Dexamethasone Sodium Phosphate (Decadron) 20 mg STK-MED ONCE .ROUTE ; Start 06/06/17 at 10:33; Stop 06/06/17 at 10:34; Status DC Multivitamins 10 ml/Folic Acid 1 mg/Thiamine HCl 100 mg/Ringer's Solution 1, 011.2 ml @ 1,000 mls/ hr 1X ONCE IV ; Start 06/06/17 at 11:30; Stop 06/06/17 at 12:30; Status DC Fentanyl Citrate (Fentanyl 2ml Vial) 25 mcg PRN Q5MIN PRN IV MILD PAIN; Start 06/06/17 at 11:45; Stop 06/07/17 at 11:44; Status DC Fentanyl Citrate (Fentanyl 2ml Vial) 50 mcg PRN Q5MIN PRN IV MODERATE PAIN Last administered on 06/06/17 17:24; Start 06/06/17 at 11:45; Stop 06/07/17 at 11:44; Status DC Morphine Sulfate 1 mg PRN Q10MIN PRN IV SEVERE PAIN Last administered on 15:38; Start 06/06/17 at 11:45; Stop 06/07/17 at 11:44; Status DC Ringer's Solution 1,000 ml @ 30 mls/hr Q24H IV ; Start 06/06/17 at 11:39; Stop 06/06/17 at 23:38; Status DC Lidocaine HCl (Xylocaine-Mpf 1% Vial) 2 ml 1X PRN PRN ID IV START; Start at 11:45; Stop 06/07/17 at 11:44; Status DC Hydromorphone HCl (Dilaudid) 0.5 mg PRN Q10MIN PRN IV SEV PAIN, Second choice; Start 06/06/17 at 11:45; Stop 06/07/17 at 11:44; Status DC Prochlorperazine Edisylate (Compazine) 5 mg PACU PRN PRN IV NAUSEA, MRX1; Start 06/06/17 at 11:45; Stop 06/07/17 at 11:44; Status DC Phenylephrine HCl (Pedro-Synephrine Inj) 10 mg STK-MED ONCE .ROUTE ; Start at 11:58; Stop 06/06/17 at 11:59; Status DC Sodium Chloride (Sodium Chloride) 50 ml STK-MED ONCE IJ ; Start 06/06/17 at 11: 58; Stop 06/06/17 at 11:59; Status DC Sevoflurane (Ultane) 90 ml STK-MED ONCE IH ; Start 06/06/17 at 13:52; Stop 06/06 at 13:53; Status DC Neostigmine Methylsulfate 5 mg STK-MED ONCE .ROUTE ; Start 06/06/17 at 13:52; Stop 06/06/17 at 13:53; Status DC Glycopyrrolate (Robinul) 1 mg STK-MED ONCE .ROUTE ; Start 06/06/17 at 13:52; Stop 06/06/17 at 13:53; Status DC Fentanyl Citrate (Fentanyl 2ml Vial) 100 mcg STK-MED ONCE .ROUTE ; Start at 14:18; Stop 06/06/17 at 14:19; Status DC Diphenhydramine HCl (Benadryl) 25 mg PRN Q6HRS PRN IV ITCHING; Start 06/06/17 at 14:30 Enoxaparin Sodium (Lovenox 40mg Syringe) 40 mg Q24H SQ Last administered on 15:00; Start 06/06/17 at 15:00; Stop 06/06/17 at 15:41; Status DC Sodium Chloride (Normal Saline Flush) 3 ml QSHIFT PRN IV AFTER MEDS AND BLOOD DRAWS; Start 06/06/17 at 14:30 Potassium Chloride/Sodium Chloride 1,000 ml @ 100 mls/hr Q10H IV Last administered on 06/07/17 20:00; Start 06/06/17 at 15:00; Stop 06/08/17 at 09: 20; Status DC Hydromorphone HCl 30 ml @ 0 mls/hr CONT PRN PRN IV PROTOCOL; Start 06/06/17 at 14:30; Stop 06/06/17 at 17:30; Status DC Ondansetron HCl (Zofran) 4 mg PRN Q6HRS PRN IV NAUESA, 1ST CHOICE; Start at 14:30 Epinephrine (S2 Racepinephrine) 0.5 ml STK-MED ONCE .ROUTE ; Start 06/06/17 at 14:35; Stop 06/06/17 at 14:36; Status DC Propofol 50 ml @ As Directed STK-MED ONCE IV ; Start 06/06/17 at 14:38; Stop at 14:39; Status DC Succinylcholine Chloride (Anectine) 200 mg STK-MED ONCE .ROUTE ; Start 06/06/17 at 14:40; Stop 06/06/17 at 14:41; Status DC Epinephrine (S2 Racepinephrine) 0.5 ml 1X ONCE NEB Last administered on 14:43; Start 06/06/17 at 14:36; Stop 06/06/17 at 14:43; Status DC Midazolam HCl (Versed) 2 mg STK-MED ONCE .ROUTE ; Start 06/06/17 at 14:48; Stop 06/06/17 at 14:49; Status DC Propofol 100 ml @ 0 mls/hr CONT PRN IV SEE I/O RECORD; Start 06/06/17 at 15:15 ; Stop 06/08/17 at 09:20; Status DC Propofol 50 ml @ As Directed STK-MED ONCE IV ; Start 06/06/17 at 15:03; Stop at 15:04; Status DC Dexamethasone Sodium Phosphate (Decadron) 12 mg 1X ONCE IV Last administered on 06/06/17 15:09; Start 06/06/17 at 15:00; Stop 06/06/17 at 15:06; Status DC Dexamethasone Sodium Phosphate (Decadron) 4 mg STK-MED ONCE .ROUTE ; Start 06/06 at 15:05; Stop 06/06/17 at 15:06; Status DC Propofol 50 ml @ 0 mls/hr 1X ONCE IV Last administered on 06/06/17 15:02; Start 06/06/17 at 15:15; Stop 06/06/17 at 15:16; Status DC Succinylcholine Chloride (Anectine) 200 mg 1X ONCE IV ; Start 06/06/17 at 15:15 ; Stop 06/06/17 at 15:16; Status DC Midazolam HCl (Versed) 2 mg 1X ONCE IV ; Start 06/06/17 at 15:15; Stop at 15:16; Status DC Cellulose 1 each STK-MED ONCE .ROUTE Last administered on 06/06/17 13:35; Start 06/06/17 at 14:19; Stop 06/06/17 at 15:20; Status DC Enoxaparin Sodium (Lovenox 40mg Syringe) 40 mg Q24H SQ Last administered on 08:48; Start 06/07/17 at 09:00; Stop 06/12/17 at 10:16; Status DC Metronidazole 100 ml @ 100 mls/hr Q12HR IV Last administered on 06/12/17 21: 32; Start 06/06/17 at 21:00; Stop 06/13/17 at 07:45; Status DC Multivitamins 10 ml/Folic Acid 1 mg/Thiamine HCl 100 mg/Dextrose/ Lactated Ringer's 1,011.2 ml @ 100 mls/ hr DAILY IV Last administered on 06/07/17 09: 21; Start 06/07/17 at 09:00; Stop 06/08/17 at 08:06; Status DC Lorazepam (Ativan) 2 mg PRN Q4HRS PRN IV ANXIETY / AGITATION; Start 06/06/17 at 15:45; Stop 06/12/17 at 10:16; Status DC Famotidine (Pepcid) 20 mg BID IVP Last administered on 06/08/17 11:18; Start 06/06/17 at 21:00; Stop 06/09/17 at 07:53; Status DC Morphine Sulfate 2 mg PRN Q2HR PRN IV moderate pain Last administered on 22:59; Start 06/06/17 at 15:45 Morphine Sulfate 4 mg PRN Q2HR PRN IV SEVERE PAIN Last administered on 08:31; Start 06/06/17 at 15:45 Ondansetron HCl (Zofran) 4 mg PRN Q6HRS PRN IV NAUSEA/VOMITING; Start 06/06/17 at 15:45; Stop 06/06/17 at 15:45; Status DC Fentanyl Citrate 30 ml @ 0 mls/hr CONT PRN IV PROTOCOL Last administered on 02:54; Start 06/06/17 at 17:30; Stop 06/07/17 at 10:39; Status DC Midazolam HCl 100 ml @ 0 mls/hr CONT PRN IV SEE I/O RECORD; Start 06/06/17 at 23:00; Stop 06/08/17 at 09:20; Status DC Sodium Chloride 1,000 ml @ 1,000 mls/hr 1X ONCE IV Last administered on 23:34; Start 06/06/17 at 23:00; Stop 06/06/17 at 23:59; Status DC Magnesium Sulfate/ Dextrose 50 ml @ 25 mls/hr 1X ONCE IV Last administered on 06/07/17 09:28; Start 06/07/17 at 08:15; Stop 06/07/17 at 10:14; Status DC Info 1 each PRN DAILY PRN MC SEE COMMENTS Last administered on 06/19/17 13:27 ; Start 06/07/17 at 09:30; Stop 06/20/17 at 12:47; Status DC Methylprednisolone Sodium Succinate (SOLU-Medrol 125MG VIAL) 50 mg DAILY IV Last administered on 06/12/17 08:47; Start 06/07/17 at 11:00; Stop 06/12/17 at 10:16; Status DC Hydromorphone HCl 30 ml @ 0 mls/hr CONT PRN PRN IV PROTOCOL Last administered on 06/07/17 11:16; Start 06/07/17 at 10:45; Stop 06/09/17 at 08:57; Status DC Sodium Chloride 90 meq/Potassium Chloride 50 meq/ Potassium Phosphate 13.6 mmol/ Magnesium Sulfate 10 meq/ Calcium Gluconate 10 meq/ Multivitamins 10 ml/Chromium / Copper/Manganese/ Seleni/Zn 1 ml/ Total Parenteral Nutrition/Amino Acids/ Dextrose/ Fat Emulsion Intravenous 1,512 ml @ 63 mls/hr TPN CONT IV Last administered on 06/07/17 22:04; Start 06/07/17 at 22:00; Stop 06/08/17 at 21 :59; Status DC Influenza Virus Vaccine Quadrival (Fluarix Quad [id number] Syringe) 0.5 ml ONCE ONCE VAX IM Last administered on 06/08/17 13:23; Start 06/07/17 at 16:15; Stop 06/07/17 at 16:35; Status DC Pneumococcal Polyvalent Vaccine (Do NOT chart on this placeholder) 1 each PRN 1X PRN MC SEE COMMENTS; Start 06/07/17 at 16:45; Status UNV Pneumococcal Polyvalent Vaccine (Pneumovax 23) 0.5 ml ONCE ONCE VAX IM Last administered on 06/08/17 13:25; Start 06/07/17 at 17:00; Stop 06/07/17 at 17 :01; Status DC Ceftriaxone Sodium 1 gm/ Sodium Chloride 50 ml @ 100 mls/hr Q24H IV Last administered on 06/12/17 08:45; Start 06/08/17 at 09:00; Stop 06/13/17 at 07 :45; Status DC Sodium Phosphate 20 mmol/Dextrose 256.6667 ml @ 64.167 m... 1X ONCE IV Last administered on 06/08/17 08:58; Start 06/08/17 at 09:00; Stop 06/08/17 at 12 :59; Status DC Multi-Ingred Cream/Lotion/Oil/ Oint (Artificial Tears Eye Oint) 1 juvenal PRN Q1HR PRN OU DRY EYE; Start 06/08/17 at 09:15 Sodium Chloride 90 meq/Potassium Chloride 40 meq/ Potassium Phosphate 17 mmol/ Magnesium Sulfate 10 meq/Calcium Gluconate 10 meq/ Multivitamins 10 ml/Chromium / Copper/Manganese/ Seleni/Zn 1 ml/ Total Parenteral Nutrition/Amino Acids/ Dextrose/ Fat Emulsion Intravenous 1,512 ml @ 63 mls/hr TPN CONT IV Last administered on 06/08/17 22:42; Start 06/08/17 at 22:00; Stop 06/09/17 at 21 :59; Status DC Diclofenac Sodium (Voltaren) 1 juvenal BID TP Last administered on 06/16/17 09:16 ; Start 06/08/17 at 21:00 Oxycodone/ Acetaminophen (Percocet 10/325) 1 tab PRN Q4HRS PRN PO pain Last administered on 06/15/17 08:48; Start 06/09/17 at 08:00; Stop 06/15/17 at 10 :39; Status DC Magnesium Sulfate/ Dextrose 50 ml @ 25 mls/hr 1X ONCE IV Last administered on 06/09/17 09:31; Start 06/09/17 at 08:00; Stop 06/09/17 at 09:59; Status DC Potassium Phosphate (K-Phos Original) 500 mg BID PO Last administered on 08:47; Start 06/09/17 at 09:00 Lidocaine (Lidoderm) 1 patch DAILY TD Last administered on 06/09/17 09:36; Start 06/09/17 at 09:00; Stop 06/10/17 at 20:50; Status DC Potassium Phosphate 13.6 mmol/Sodium Chloride 104.5333 ml @ 52.267 m... 1X ONCE IV Last administered on 06/09/17 13:51; Start 06/09/17 at 13:30; Stop 06/09/17 at 15:29; Status DC Sodium Chloride 40 meq/Sodium Acetate 50 meq/ Potassium Chloride 40 meq/ Potassium Phosphate 20 mmol/ Magnesium Sulfate 15 meq/Calcium Gluconate 10 meq/ Multivitamins 10 ml/Chromium/ Copper/Manganese/ Seleni/Zn 1 ml/ Total Parenteral Nutrition/Amino Acids/Dextrose/ Fat Emulsion Intravenous 1,512 ml @ 63 mls/hr TPN CONT IV Last administered on 06/09/17 22:11; Start 06/09/17 at 22:00; Stop 06/10/17 at 21:59; Status DC Potassium Chloride (Klor-Con) 40 meq 1X ONCE PO Last administered on 10:40; Start 06/10/17 at 09:30; Stop 06/10/17 at 09:31; Status DC Potassium Chloride (Klor-Con) 20 meq [id number] PO Last administered on 12:10; Start 06/11/17 at 08:00 Magnesium Sulfate/ Dextrose 50 ml @ 25 mls/hr 1X ONCE IV Last administered on 06/10/17 10:38; Start 06/10/17 at 10:00; Stop 06/10/17 at 11:59; Status DC Sodium Chloride 40 meq/Sodium Acetate 50 meq/ Potassium Acetate 60 meq/ Potassium Phosphate 18 mmol/ Magnesium Sulfate 18 meq/Calcium Gluconate 10 meq/ Multivitamins 10 ml/Chromium/ Copper/Manganese/ Seleni/Zn 1 ml/ Total Parenteral Nutrition/Amino Acids/Dextrose/ Fat Emulsion Intravenous 1,512 ml @ 63 mls/hr TPN CONT IV Last administered on 06/10/17 21:43; Start 06/10/17 at 22:00; Stop 06/11/17 at 22:00; Status DC Lidocaine (Lidoderm) 1 patch QHS TD Last administered on 06/10/17 21:37; Start 06/10/17 at 21:00; Stop 06/12/17 at 05:01; Status DC Magnesium Sulfate/ Dextrose 100 ml @ 25 mls/hr 1X ONCE IV Last administered on 06/11/17 11:22; Start 06/11/17 at 09:00; Stop 06/11/17 at 12:59; Status DC Lisinopril (Prinivil) 10 mg DAILY PO Last administered on 06/13/17 08:34; Start 06/11/17 at 13:00; Stop 06/13/17 at 09:19; Status DC Metoprolol Succinate (Toprol Xl) 100 mg DAILY PO Last administered on 11:29; Start 06/11/17 at 13:00 Hydrochlorothiazide (Hydrodiuril) 25 mg DAILY PO Last administered on 11:28; Start 06/11/17 at 13:00 Sodium Chloride 40 meq/Sodium Acetate 50 meq/ Potassium Acetate 60 meq/ Potassium Phosphate 18 mmol/ Magnesium Sulfate 18 meq/Calcium Gluconate 10 meq/ Multivitamins 10 ml/Chromium/ Copper/Manganese/ Seleni/Zn 1 ml/ Total Parenteral Nutrition/Amino Acids/Dextrose/ Fat Emulsion Intravenous 1,512 ml @ 63 mls/hr TPN CONT IV Last administered on 06/11/17 21:43; Start 06/11/17 at 22:00; Stop 06/12/17 at 21:59; Status DC Lidocaine (Lidoderm) 1 patch DAILY TD Last administered on 06/22/17 08:49; Start 06/12/17 at 09:00 Hydralazine HCl (Apresoline Inj) 10 mg PRN Q4HRS PRN IVP ELEVATED BP, SEE COMMENTS; Start 06/12/17 at 09:00 Magnesium Sulfate/ Dextrose 100 ml @ 25 mls/hr 1X ONCE IV Last administered on 06/12/17 09:53; Start 06/12/17 at 09:30; Stop 06/12/17 at 13:29; Status DC Magnesium Oxide (Magnesium Oxide) 400 mg DAILY PO Last administered on 12:10; Start 06/12/17 at 09:30 Lorazepam (Ativan) 1 mg PRN Q4HRS PRN IV ANXIETY / AGITATION; Start 06/12/17 at 10:15 Alprazolam (Xanax) 0.5 mg PRN Q8HRS PRN PO ANXIETY / AGITATION; Start at 10:15 Prednisone (Prednisone) 20 mg DAILY PO Last administered on 06/13/17 08:34; Start 06/13/17 at 09:00; Stop 06/13/17 at 15:06; Status DC Sodium Chloride 60 meq/Sodium Acetate 50 meq/ Potassium Acetate 60 meq/ Potassium Phosphate 18 mmol/ Magnesium Sulfate 27 meq/Calcium Gluconate 10 meq/ Multivitamins 10 ml/Chromium/ Copper/Manganese/ Seleni/Zn 1 ml/ Total Parenteral Nutrition/Amino Acids/Dextrose/ Fat Emulsion Intravenous 1,512 ml @ 63 mls/hr TPN CONT IV Last administered on 06/12/17 21:33; Start 06/12/17 at 22:00; Stop 06/13/17 at 21:59; Status DC Metronidazole (Flagyl) 500 mg Q12HR PO Last administered on 06/15/17 21:48; Start 06/13/17 at 09:00; Stop 06/16/17 at 09:05; Status DC Cefpodoxime Proxetil (Vantin) 200 mg BID PO Last administered on 06/15/17 21: 49; Start 06/13/17 at 09:00; Stop 06/16/17 at 09:05; Status DC Lisinopril (Prinivil) 20 mg DAILY PO Last administered on 06/22/17 12:10; Start 06/14/17 at 09:00 Lisinopril (Prinivil) 10 mg 1X ONCE PO ; Start 06/13/17 at 09:30; Stop at 09:31; Status DC Docusate Sodium (Colace) 100 mg BID PO Last administered on 06/22/17 11:28; Start 06/13/17 at 11:30 Sodium Chloride 60 meq/Sodium Acetate 50 meq/ Potassium Acetate 60 meq/ Potassium Phosphate 18 mmol/ Magnesium Sulfate 27 meq/Calcium Gluconate 10 meq/ Multivitamins 10 ml/Chromium/ Copper/Manganese/ Seleni/Zn 1 ml/ Total Parenteral Nutrition/Amino Acids/Dextrose/ Fat Emulsion Intravenous 1,512 ml @ 63 mls/hr TPN CONT IV Last administered on 06/13/17 22:31; Start 06/13/17 at 22:00; Stop 06/14/17 at 21:59; Status DC Lisinopril (Prinivil) 10 mg 1X ONCE PO Last administered on 06/13/17 16:18; Start 06/13/17 at 14:45; Stop 06/13/17 at 14:46; Status DC Polyethylene Glycol (miraLAX PACKET) 17 gm DAILY PO ; Start 06/14/17 at 09:30; Stop 06/14/17 at 11:47; Status DC Magnesium Hydroxide (Milk Of Magnesia) 2,400 mg PRN DAILY PRN PO CONSTIPATION; Start 06/14/17 at 09:30; Stop 06/14/17 at 11:47; Status DC Magnesium Hydroxide (Milk Of Magnesia) 2,400 mg 1X ONCE PO ; Start 06/14/17 at 09:30; Stop 06/14/17 at 09:31; Status Cancel Magnesium Sulfate/ Dextrose 100 ml @ 25 mls/hr 1X ONCE IV Last administered on 06/14/17 12:03; Start 06/14/17 at 10:00; Stop 06/14/17 at 13:59; Status DC Sodium Chloride 80 meq/Sodium Acetate 50 meq/ Potassium Acetate 60 meq/ Potassium Phosphate 18 mmol/ Magnesium Sulfate 27 meq/Calcium Gluconate 10 meq/ Multivitamins 10 ml/Chromium/ Copper/Manganese/ Seleni/Zn 1 ml/ Total Parenteral Nutrition/Amino Acids/Dextrose/ Fat Emulsion Intravenous 1,512 ml @ 63 mls/hr TPN CONT IV Last administered on 06/14/17 22:34; Start 06/14/17 at 22:00; Stop 06/15/17 at 21:59; Status DC Hydromorphone HCl (Dilaudid) 1 mg 1X ONCE IV Last administered on 06/14/17 15:47; Start 06/14/17 at 13:15; Stop 06/14/17 at 13:16; Status DC Iohexol (Omnipaque 300 Mg/ml) 75 ml 1X ONCE IV Last administered on 13:56; Start 06/14/17 at 13:30; Stop 06/14/17 at 13:31; Status DC Info (Do NOT chart on this entry -- for MONITORING) 1 each PRN DAILY PRN MC SEE COMMENTS; Start 06/14/17 at 13:15; Stop 06/16/17 at 13:14; Status DC Oxycodone/ Acetaminophen (Percocet 10/325) 1 tab Q4HRS PO Last administered on 06/22/17 12:10; Start 06/15/17 at 12:00 Sodium Chloride 80 meq/Sodium Acetate 50 meq/ Potassium Acetate 60 meq/ Potassium Phosphate 18 mmol/ Magnesium Sulfate 27 meq/Calcium Gluconate 10 meq/ Multivitamins 10 ml/Chromium/ Copper/Manganese/ Seleni/Zn 1 ml/ Total Parenteral Nutrition/Amino Acids/Dextrose/ Fat Emulsion Intravenous 1,512 ml @ 63 mls/hr TPN CONT IV Last administered on 06/15/17 22:14; Start 06/15/17 at 22:00; Stop 06/16/17 at 21:59; Status DC Meropenem 1 gm/ Sodium Chloride 100 ml @ 200 mls/hr Q8HRS IV Last administered on 06/22/17 06:22; Start 06/16/17 at 14:00 Vancomycin HCl (Vanco Per Pharmacy) 1 each PRN DAILY PRN MC SEE COMMENTS Last administered on 06/20/17 15:56; Start 06/16/17 at 09:00; Stop 06/21/17 at 08 :16; Status DC Fluconazole/ Sodium Chloride 200 ml @ 100 mls/hr Q24H IV Last administered on 06/20/17 10:39; Start 06/16/17 at 10:00; Stop 06/21/17 at 08:16; Status DC Vancomycin HCl 2 gm/Dextrose 500 ml @ 250 mls/hr 1X ONCE IV Last administered on 06/16/17 11:57; Start 06/16/17 at 11:00; Stop 06/16/17 at 12 :59; Status DC Magnesium Sulfate/ Dextrose 50 ml @ 25 mls/hr 1X ONCE IV Last administered on 06/16/17 11:56; Start 06/16/17 at 10:30; Stop 06/16/17 at 12:30; Status DC Vancomycin HCl 1.25 gm/Dextrose 250 ml @ 167 mls/hr Q12H IV Last administered on 06/21/17 00:01; Start 06/17/17 at 00:00; Stop 06/21/17 at 08:16; Status DC Vancomycin HCl 1 each 1X ONCE MC Last administered on 06/18/17 23:30; Start 06/18/17 at 23:30; Stop 06/18/17 at 23:31; Status DC Sodium Chloride 80 meq/Sodium Acetate 50 meq/ Potassium Acetate 60 meq/ Potassium Phosphate 18 mmol/ Magnesium Sulfate 30 meq/Calcium Gluconate 10 meq/ Multivitamins 10 ml/Chromium/ Copper/Manganese/ Seleni/Zn 1 ml/ Total Parenteral Nutrition/Amino Acids/Dextrose/ Fat Emulsion Intravenous 1,512 ml @ 63 mls/hr TPN CONT IV Last administered on 06/16/17 22:03; Start 06/16/17 at 22:00; Stop 06/17/17 at 21:59; Status DC Lactobacillus Acidophilus (Bacid, Jenniffer-Bid) 1 tab BID PO Last administered on 06/19/17 09:40; Start 06/16/17 at 21:00; Stop 06/19/17 at 09:01; Status DC Magnesium Sulfate/ Dextrose 50 ml @ 25 mls/hr 1X ONCE IV Last administered on 06/17/17 10:00; Start 06/17/17 at 10:00; Stop 06/17/17 at 11:59; Status DC Sodium Chloride 80 meq/Sodium Acetate 50 meq/ Potassium Acetate 60 meq/ Potassium Phosphate 18 mmol/ Magnesium Sulfate 30 meq/Calcium Gluconate 10 meq/ Multivitamins 10 ml/Chromium/ Copper/Manganese/ Seleni/Zn 1 ml/ Total Parenteral Nutrition/Amino Acids/Dextrose/ Fat Emulsion Intravenous 1,512 ml @ 63 mls/hr TPN CONT IV Last administered on 06/17/17 22:00; Start 06/17/17 at 22:00; Stop 06/18/17 at 21:59; Status DC Sodium Chloride 95 meq/Sodium Acetate 50 meq/ Potassium Acetate 60 meq/ Potassium Phosphate 18 mmol/ Magnesium Sulfate 30 meq/Calcium Gluconate 10 meq/ Multivitamins 10 ml/Chromium/ Copper/Manganese/ Seleni/Zn 1 ml/ Total Parenteral Nutrition/Amino Acids/Dextrose/ Fat Emulsion Intravenous 1,512 ml @ 63 mls/hr TPN CONT IV Last administered on 06/18/17 22:06; Start 06/18/17 at 22:00; Stop 06/19/17 at 21:59; Status DC Lactobacillus Rhamnosus (Culturelle) 1 cap BID PO Last administered on 12:10; Start 06/19/17 at 21:00 Sodium Chloride 95 meq/Sodium Acetate 50 meq/ Potassium Acetate 60 meq/ Potassium Phosphate 18 mmol/ Magnesium Sulfate 30 meq/Calcium Gluconate 10 meq/ Multivitamins 10 ml/Chromium/ Copper/Manganese/ Seleni/Zn 1 ml/ Total Parenteral Nutrition/Amino Acids/Dextrose/ Fat Emulsion Intravenous 1,512 ml @ 63 mls/hr TPN CONT IV Last administered on 06/19/17 22:18; Start 06/19/17 at 22:00; Stop 06/20/17 at 21:59; Status DC Chlorhexidine Gluconate (Peridex) 15 ml BID SWSP Last administered on 20:57; Start 06/20/17 at 09:30 Ferrous Sulfate (Feosol) 325 mg DAILYWBKFT PO Last administered on 06/22/17 11:28; Start 06/20/17 at 13:00 Linezolid (Zyvox) 600 mg BID PO Last administered on 06/22/17 11:28; Start 06/21/17 at 09:00 Albumin Human 100 ml @ 100 mls/hr Q6HRS IV Last administered on 06/22/17 12: 09; Start 06/21/17 at 18:00 Oxycodone/ Acetaminophen (Percocet 10/325) 1 tab ONCE ONCE PO Last administered on 06/22/17 08:30; Start 06/22/17 at 08:20; Stop 06/22/17 at 08 :21; Status DC Active Scripts Active Reported [prednisone taper] Metoprolol Succinate ( Xl ) (Metoprolol Succinate) 100 Mg Tab.er.24h 1 Tab PO DAILY Lisinopril 10 Mg Tablet 1 Tab PO DAILY Hydrochlorothiazide Tablet (Hydrochlorothiazide) 50 Mg Tablet 25 Tab PO DAILY Vitals/I & O Vital Sign - Last 24 Hours 06/21/17 06/21/17 06/21/17 06/21/17 15:10 16:05 17:11 19:30 Temp 99.8 99.4 99.8 99.4 Pulse 115 85 Resp 18 18 B/P (MAP) 107/61 (76) 109/56 (73) Pulse Ox 91 91 91 92 O2 Delivery Room Air Room Air Room Air O2 Flow Rate 2.0 06/21/17 06/21/17 06/21/17 06/22/17 20:37 21:40 23:24 03:27 Temp 99.3 99.1 99.3 99.1 Pulse 73 88 Resp 20 20 18 18 B/P (MAP) 115/53 (73) 110/60 (77) Pulse Ox 93 94 O2 Delivery Room Air Room Air Room Air Room Air 10/25/17 06/22/17 06/22/17 06/22/17 04:06 05:15 07:00 08:30 Temp 99.4 99.4 Pulse 91 Resp 20 20 18 16 B/P (MAP) 136/77 (96) Pulse Ox 91 O2 Delivery Room Air Room Air Room Air 06/22/17 06/22/17 06/22/17 11:29 12:10 12:10 Pulse 85 85 Resp 16 B/P (MAP) 119/68 119/68 O2 Delivery Room Air Intake and Output 06/22/17 06/22/17 06/23/17 15:00 23:00 07:00 Intake Total 200 ml Balance 200 ml KRISTIN PEÑA MD Jun 22, 2017 13:38
--- NOTE | 2017-06-22 13:52 | PDOC ---
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 General: Alert, No acute distress Abdomen: Soft, Other (incision with minimal drainage, stoma functioning) Labs Laboratory Tests Test 06/20/17 16:53 06/20/17 21:30 06/21/17 05:50 06/22/17 04:37 Glucose (Fingerstick) 111 mg/dL (70-99) 93 mg/dL (70-99) White Blood Count 8.2 x10^3/uL (4.0-11.0) 7.7 x10^3/uL (4.0-11.0) Red Blood Count 2.53 x10^6/uL (4.30-5.70) 2.86 x10^6/uL (4.30-5.70) Hemoglobin 7.1 g/dL (13.0-17.5) 8.1 g/dL (13.0-17.5) Hematocrit 21.5 % (39.0-53.0) 24.1 % (39.0-53.0) Mean Corpuscular Volume 85 fL (79-100) 84 fL (79-100) Mean Corpuscular Hemoglobin 28 pg (25-35) 28 pg (25-35) Mean Corpuscular Hemoglobin Concent 33 g/dL (31-37) 34 g/dL (31-37) Red Cell Distribution Width 13.9 % (11.5-14.5) 14.0 % (11.5-14.5) Platelet Count 426 x10^3/uL (140-400) 508 x10^3/uL (140-400) Neutrophils (%) (Auto) 68 % (31-73) 65 % (31-73) Lymphocytes (%) (Auto) 10 % (24-48) 15 % (24-48) Monocytes (%) (Auto) 15 % (0-9) 15 % (0-9) Eosinophils (%) (Auto) 6 % (0-3) 5 % (0-3) Basophils (%) (Auto) 0 % (0-3) 1 % (0-3) Neutrophils # (Auto) 5.6 x10^3uL (1.8-7.7) 5.0 x10^3uL (1.8-7.7) Lymphocytes # (Auto) 0.8 x10^3/uL (1.0-4.8) 1.2 x10^3/uL (1.0-4.8) Monocytes # (Auto) 1.2 x10^3/uL (0.0-1.1) 1.1 x10^3/uL (0.0-1.1) Eosinophils # (Auto) 0.5 x10^3/uL (0.0-0.7) 0.4 x10^3/uL (0.0-0.7) Basophils # (Auto) 0.0 x10^3/uL (0.0-0.2) 0.1 x10^3/uL (0.0-0.2) Sodium Level 133 mmol/L (136-145) 133 mmol/L (136-145) Potassium Level 4.0 mmol/L (3.5-5.1) 4.0 mmol/L (3.5-5.1) Chloride Level 100 mmol/L (98-107) 97 mmol/L (98-107) Carbon Dioxide Level 28 mmol/L (21-32) 28 mmol/L (21-32) Anion Gap 5 (6-14) 8 (6-14) Blood Urea Nitrogen 17 mg/dL (8-26) 15 mg/dL (8-26) Creatinine 1.0 mg/dL (0.7-1.3) 1.1 mg/dL (0.7-1.3) Estimated GFR (Cockcroft-Gault) 74.8 67.0 Glucose Level 88 mg/dL (70-99) 98 mg/dL (70-99) Calcium Level 7.8 mg/dL (8.5-10.1) 8.8 mg/dL (8.5-10.1) Albumin 2.6 g/dL (3.4-5.0) Test 10/25/17 07:16 06/22/17 11:30 Glucose (Fingerstick) 93 mg/dL (70-99) 104 mg/dL (70-99) Laboratory Tests Test 06/22/17 04:37 06/22/17 07:16 06/22/17 11:30 White Blood Count 7.7 x10^3/uL (4.0-11.0) Red Blood Count 2.86 x10^6/uL (4.30-5.70) Hemoglobin 8.1 g/dL (13.0-17.5) Hematocrit 24.1 % (39.0-53.0) Mean Corpuscular Volume 84 fL (79-100) Mean Corpuscular Hemoglobin 28 pg (25-35) Mean Corpuscular Hemoglobin Concent 34 g/dL (31-37) Red Cell Distribution Width 14.0 % (11.5-14.5) Platelet Count 508 x10^3/uL (140-400) Neutrophils (%) (Auto) 65 % (31-73) Lymphocytes (%) (Auto) 15 % (24-48) Monocytes (%) (Auto) 15 % (0-9) Eosinophils (%) (Auto) 5 % (0-3) Basophils (%) (Auto) 1 % (0-3) Neutrophils # (Auto) 5.0 x10^3uL (1.8-7.7) Lymphocytes # (Auto) 1.2 x10^3/uL (1.0-4.8) Monocytes # (Auto) 1.1 x10^3/uL (0.0-1.1) Eosinophils # (Auto) 0.4 x10^3/uL (0.0-0.7) Basophils # (Auto) 0.1 x10^3/uL (0.0-0.2) Sodium Level 133 mmol/L (136-145) Potassium Level 4.0 mmol/L (3.5-5.1) Chloride Level 97 mmol/L (98-107) Carbon Dioxide Level 28 mmol/L (21-32) Anion Gap 8 (6-14) Blood Urea Nitrogen 15 mg/dL (8-26) Creatinine 1.1 mg/dL (0.7-1.3) Estimated GFR (Cockcroft-Gault) 67.0 Glucose Level 98 mg/dL (70-99) Calcium Level 8.8 mg/dL (8.5-10.1) Albumin 2.6 g/dL (3.4-5.0) Glucose (Fingerstick) 93 mg/dL (70-99) 104 mg/dL (70-99) Problem List Problems Medical Problems: (1) Abdominal pain Status: Acute (2) Elevated brain natriuretic peptide (BNP) level Status: Acute (3) Hypomagnesemia Status: Acute (4) Perforated abdominal viscus Status: Acute Assessment/Plan s/p sigmoid resection fevers, trending down? hypoalbuminemia see how temp does with line out and off drugs no new surgical recs Problems: MARY MARTINEZ MD Jun 22, 2017 13:52
[2017-06-22 15:00] VITALS: BP 103/68
[2017-06-22 19:00] VITALS: BP 121/56
[2017-06-23] VITALS (7 sets, daily range): BP systolic 105–154; BP diastolic 54–73
[2017-06-23] MEDS: oxyCODONE/APAP 10/325 1 TAB TABLET PO SCH ×6 (00:27→20:00)
[2017-06-23] MEDS: ALBUMIN HUMAN 25% 100 ML IV SCH ×5 (00:27→18:00)
[2017-06-23 03:53] LABS: CALCIUM 9.1 mg/dL (8.5-10.1); GFR 74.8; POTASSIUM 3.7 mmol/L (3.5-5.1)
[2017-06-23 03:55] LABS: BASO # 0.1 x10^3/uL (0.0-0.2); BASO % 1 % (0-3); EOS % 5 % (0-3); HEMATOCRIT 21.3 % (39.0-53.0); HEMOGLOBIN 7.2 g/dL (13.0-17.5); LYMPH % 13 % (24-48); MEAN CORPUSCULAR HEMOGLOBIN 29 pg (25-35); MEAN CORPUSCULAR HGB CONC 34 g/dL (31-37); MEAN CORPUSCULAR VOLUME 85 fL (79-100); MONO % 15 % (0-9); NEUT % 67 % (31-73); PLATELET COUNT 420 x10^3/uL (140-400); RED BLOOD COUNT 2.51 x10^6/uL (4.30-5.70); RED CELL DISTRIBUTION WIDTH 13.8 % (11.5-14.5); WHITE BLOOD COUNT 7.7 x10^3/uL (4.0-11.0)
[2017-06-23] MEDS: MEROPENEM 1 GM in IV NORMAL SALINE 100ML 100 ML IV SCH ×2 (05:52→06:00)
[2017-06-23] MEDS: POTASSIUM PHOSPHATE,MONOBASIC 500 MG TABLET. PO SCH ×2 (07:48→21:44)
[2017-06-23] MEDS: DOCUSATE SODIUM 100 MG CAPSULE. PO SCH ×2 (07:48→21:41)
[2017-06-23] MEDS: LINEZOLID 600 MG TABLET PO SCH (07:49)
[2017-06-23] MEDS: MAGNESIUM OXIDE 400 MG TABLET PO SCH (07:49)
[2017-06-23] MEDS: LACTOBACILLUS RHAMNOSUS GG 1 CAPSULE. PO SCH ×2 (07:49→21:44)
[2017-06-23] MEDS: FERROUS SULFATE 325 MG TABLET. PO SCH (07:49)
[2017-06-23] MEDS: POTASSIUM CHLORIDE 20 MEQ TABLET.ER. PO SCH (07:49)
[2017-06-23] MEDS: LIDOCAINE (700MG/PATCH) PATCH. TD SCH ×2 (07:50→09:00)
[2017-06-23] MEDS: DICLOFENAC SODIUM 1% TOPICAL GEL 100GM TUBE. TP SCH ×2 (07:50→21:00)
[2017-06-23] MEDS: LISINOPRIL 20 MG TABLET PO SCH (09:00)
[2017-06-23] MEDS: hydroCHLOROthiazide 25 MG TABLET PO SCH (09:00)
[2017-06-23] MEDS: METOPROLOL SUCC 24HR ER 100 MG TAB.ER.24H. PO SCH (09:00)
--- NOTE | 2017-06-23 09:03 | PDOC ---
Infectious Disease Note Subjective Subjective Feels really well this am and getting ready to walk ROS ROS GEN: Denies fevers, chills, sweats HEENT: Denies blurred vision, sore throat CV: Denies chest pain RESP: Denies shortness of air, cough GI: Denies n/v/d NEURO: Denies confusion, dizziness MSK: Denies weakness, joint pain/swelling Vital Sign Vital Signs Vital Signs Date Time Temp Pulse Resp B/P (MAP) Pulse Ox O2 Delivery O2 Flow Rate FiO2 06/23/17 08:08 100.6 43 18 109/54 (72) Nasal Cannula 3.0 100.6 06/23/17 04:42 94 Physical Exam PHYSICAL EXAM GENERAL: NAD, Alert HEENT: PERRL, OC/OP -clear NECK: Supple, no JVD, no LN LUNGS: Clear HEART: S1S2, no gallop, no murmur ABD: Soft, NT, no organomegaly, no rebound. Ostomy with output. 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, no focal neurologic deficit SKIN: No rash IV: ok Labs Lab Laboratory Tests Test 06/22/17 11:30 06/22/17 16:33 06/22/17 20:55 06/23/17 03:10 Glucose (Fingerstick) 104 mg/dL (70-99) 116 mg/dL (70-99) 128 mg/dL (70-99) White Blood Count 7.7 x10^3/uL (4.0-11.0) Red Blood Count 2.51 x10^6/uL (4.30-5.70) Hemoglobin 7.2 g/dL (13.0-17.5) Hematocrit 21.3 % (39.0-53.0) Mean Corpuscular Volume 85 fL (79-100) Mean Corpuscular Hemoglobin 29 pg (25-35) Mean Corpuscular Hemoglobin Concent 34 g/dL (31-37) Red Cell Distribution Width 13.8 % (11.5-14.5) Platelet Count 420 x10^3/uL (140-400) Neutrophils (%) (Auto) 67 % (31-73) Lymphocytes (%) (Auto) 13 % (24-48) Monocytes (%) (Auto) 15 % (0-9) Eosinophils (%) (Auto) 5 % (0-3) Basophils (%) (Auto) 1 % (0-3) Neutrophils # (Auto) 5.2 x10^3uL (1.8-7.7) Lymphocytes # (Auto) 1.0 x10^3/uL (1.0-4.8) Monocytes # (Auto) 1.1 x10^3/uL (0.0-1.1) Eosinophils # (Auto) 0.4 x10^3/uL (0.0-0.7) Basophils # (Auto) 0.1 x10^3/uL (0.0-0.2) Sodium Level 135 mmol/L (136-145) Potassium Level 3.7 mmol/L (3.5-5.1) Chloride Level 99 mmol/L (98-107) Carbon Dioxide Level 29 mmol/L (21-32) Anion Gap 7 (6-14) Blood Urea Nitrogen 12 mg/dL (8-26) Creatinine 1.0 mg/dL (0.7-1.3) Estimated GFR (Cockcroft-Gault) 74.8 Glucose Level 117 mg/dL (70-99) Calcium Level 9.1 mg/dL (8.5-10.1) Micro CT abd 06/14 Impression: 1. Expected postoperative findings of partial colectomy and diverting colostomy. Small amount of gas within the abdomen is decreased from prior study, may be related to the remaining surgical drain. 2. No acute intra-abdominal findings. 3. Right lower lobe consolidation with air bronchograms concerning for pneumonia. Small right and trace left pleural effusion. Objective Assessment Fever - up again currently 100.6 but under covers. ? meds (Vanc d/c'd ? pain med vs ID vs line -now out) cults neg. Occur in am and then better in afternoon. ? related to blankets also. On scheduled tylenol containing meds Perforated viscus with fecal peritonitis, E. coli & Prevotella spp. CT 06/14 reviewed. 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 Drains removed. still mild erythema about the wound but better Abdominal pain, better Respiratory failure - better - some RLL consolidation most recent CT with atelectasis/infiltrate Chronic back pain HTN Leukocytosis, ? steroids - off steroids 06/13. better Plan Plan of Care D/c'd vanc 06/21 r/o drug fever, & Fluconazole Will discont meropenem/Zyvox today. Clinically he looks great. If temp persists will need CT Monitor HgB monitor incision and temp f/u am labs Supportive care THALIA MORALES MD Jun 23, 2017 09:03
[2017-06-23] MEDS: CHLORHEXIDINE 0.12% 15 ML MOUTHWASH. SWSP SCH ×2 (10:31→21:42)
--- NOTE | 2017-06-23 11:23 | PDOC ---
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 History of Present Illness History of Present Illness ID now on board for temps - change since I last saw him Tmax 100.6 this AM at 8 AM BC neg Walking the halls with pT CAn be very opinionated about his care PLAN: Will follow along - no new IM orders (We are on consult) CPM Vitals Vitals Vital Signs Date Time Temp Pulse Resp B/P (MAP) Pulse Ox O2 Delivery O2 Flow Rate FiO2 06/23/17 10:06 99.1 98 18 105/61 (76) Room Air 99.1 06/23/17 08:49 2.0 06/23/17 04:42 94 Physical Exam Physical Exam General: Alert, No acute distress Heart: Regular rate, Normal S1, Normal S2, No murmurs Lungs: Clear Abdomen: Soft, Other (incision with minimal drainage, stoma functioning) Extremities: No edema, Normal pulses Skin: No rashes, No breakdown Labs LABS Laboratory Tests Test 06/22/17 11:30 06/22/17 16:33 06/22/17 20:55 06/23/17 03:10 Glucose (Fingerstick) 104 mg/dL (70-99) 116 mg/dL (70-99) 128 mg/dL (70-99) White Blood Count 7.7 x10^3/uL (4.0-11.0) Red Blood Count 2.51 x10^6/uL (4.30-5.70) Hemoglobin 7.2 g/dL (13.0-17.5) Hematocrit 21.3 % (39.0-53.0) Mean Corpuscular Volume 85 fL (79-100) Mean Corpuscular Hemoglobin 29 pg (25-35) Mean Corpuscular Hemoglobin Concent 34 g/dL (31-37) Red Cell Distribution Width 13.8 % (11.5-14.5) Platelet Count 420 x10^3/uL (140-400) Neutrophils (%) (Auto) 67 % (31-73) Lymphocytes (%) (Auto) 13 % (24-48) Monocytes (%) (Auto) 15 % (0-9) Eosinophils (%) (Auto) 5 % (0-3) Basophils (%) (Auto) 1 % (0-3) Neutrophils # (Auto) 5.2 x10^3uL (1.8-7.7) Lymphocytes # (Auto) 1.0 x10^3/uL (1.0-4.8) Monocytes # (Auto) 1.1 x10^3/uL (0.0-1.1) Eosinophils # (Auto) 0.4 x10^3/uL (0.0-0.7) Basophils # (Auto) 0.1 x10^3/uL (0.0-0.2) Sodium Level 135 mmol/L (136-145) Potassium Level 3.7 mmol/L (3.5-5.1) Chloride Level 99 mmol/L (98-107) Carbon Dioxide Level 29 mmol/L (21-32) Anion Gap 7 (6-14) Blood Urea Nitrogen 12 mg/dL (8-26) Creatinine 1.0 mg/dL (0.7-1.3) Estimated GFR (Cockcroft-Gault) 74.8 Glucose Level 117 mg/dL (70-99) Calcium Level 9.1 mg/dL (8.5-10.1) Review of Systems Review of Systems no cp, soa, abd pain, emseiss Assessment and Plan Assessmemt and Plan Problems Medical Problems: (1) Abdominal pain Status: Acute (2) Elevated brain natriuretic peptide (BNP) level Status: Acute (3) Hypomagnesemia Status: Acute (4) Perforated abdominal viscus Status: Acute Problems: Comment Review of Relevant I have reviewed the following items ananda (where applicable) has been applied. Labs Laboratory Tests Test 06/22/17 04:37 06/22/17 07:16 06/22/17 11:30 06/22/17 16:33 White Blood Count 7.7 x10^3/uL (4.0-11.0) Red Blood Count 2.86 x10^6/uL (4.30-5.70) Hemoglobin 8.1 g/dL (13.0-17.5) Hematocrit 24.1 % (39.0-53.0) Mean Corpuscular Volume 84 fL (79-100) Mean Corpuscular Hemoglobin 28 pg (25-35) Mean Corpuscular Hemoglobin Concent 34 g/dL (31-37) Red Cell Distribution Width 14.0 % (11.5-14.5) Platelet Count 508 x10^3/uL (140-400) Neutrophils (%) (Auto) 65 % (31-73) Lymphocytes (%) (Auto) 15 % (24-48) Monocytes (%) (Auto) 15 % (0-9) Eosinophils (%) (Auto) 5 % (0-3) Basophils (%) (Auto) 1 % (0-3) Neutrophils # (Auto) 5.0 x10^3uL (1.8-7.7) Lymphocytes # (Auto) 1.2 x10^3/uL (1.0-4.8) Monocytes # (Auto) 1.1 x10^3/uL (0.0-1.1) Eosinophils # (Auto) 0.4 x10^3/uL (0.0-0.7) Basophils # (Auto) 0.1 x10^3/uL (0.0-0.2) Sodium Level 133 mmol/L (136-145) Potassium Level 4.0 mmol/L (3.5-5.1) Chloride Level 97 mmol/L (98-107) Carbon Dioxide Level 28 mmol/L (21-32) Anion Gap 8 (6-14) Blood Urea Nitrogen 15 mg/dL (8-26) Creatinine 1.1 mg/dL (0.7-1.3) Estimated GFR (Cockcroft-Gault) 67.0 Glucose Level 98 mg/dL (70-99) Calcium Level 8.8 mg/dL (8.5-10.1) Albumin 2.6 g/dL (3.4-5.0) Glucose (Fingerstick) 93 mg/dL (70-99) 104 mg/dL (70-99) 116 mg/dL (70-99) Test 06/22/17 20:55 06/23/17 03:10 Glucose (Fingerstick) 128 mg/dL (70-99) White Blood Count 7.7 x10^3/uL (4.0-11.0) Red Blood Count 2.51 x10^6/uL (4.30-5.70) Hemoglobin 7.2 g/dL (13.0-17.5) Hematocrit 21.3 % (39.0-53.0) Mean Corpuscular Volume 85 fL (79-100) Mean Corpuscular Hemoglobin 29 pg (25-35) Mean Corpuscular Hemoglobin Concent 34 g/dL (31-37) Red Cell Distribution Width 13.8 % (11.5-14.5) Platelet Count 420 x10^3/uL (140-400) Neutrophils (%) (Auto) 67 % (31-73) Lymphocytes (%) (Auto) 13 % (24-48) Monocytes (%) (Auto) 15 % (0-9) Eosinophils (%) (Auto) 5 % (0-3) Basophils (%) (Auto) 1 % (0-3) Neutrophils # (Auto) 5.2 x10^3uL (1.8-7.7) Lymphocytes # (Auto) 1.0 x10^3/uL (1.0-4.8) Monocytes # (Auto) 1.1 x10^3/uL (0.0-1.1) Eosinophils # (Auto) 0.4 x10^3/uL (0.0-0.7) Basophils # (Auto) 0.1 x10^3/uL (0.0-0.2) Sodium Level 135 mmol/L (136-145) Potassium Level 3.7 mmol/L (3.5-5.1) Chloride Level 99 mmol/L (98-107) Carbon Dioxide Level 29 mmol/L (21-32) Anion Gap 7 (6-14) Blood Urea Nitrogen 12 mg/dL (8-26) Creatinine 1.0 mg/dL (0.7-1.3) Estimated GFR (Cockcroft-Gault) 74.8 Glucose Level 117 mg/dL (70-99) Calcium Level 9.1 mg/dL (8.5-10.1) Laboratory Tests Test 06/22/17 11:30 06/22/17 16:33 06/22/17 20:55 06/23/17 03:10 Glucose (Fingerstick) 104 mg/dL (70-99) 116 mg/dL (70-99) 128 mg/dL (70-99) White Blood Count 7.7 x10^3/uL (4.0-11.0) Red Blood Count 2.51 x10^6/uL (4.30-5.70) Hemoglobin 7.2 g/dL (13.0-17.5) Hematocrit 21.3 % (39.0-53.0) Mean Corpuscular Volume 85 fL (79-100) Mean Corpuscular Hemoglobin 29 pg (25-35) Mean Corpuscular Hemoglobin Concent 34 g/dL (31-37) Red Cell Distribution Width 13.8 % (11.5-14.5) Platelet Count 420 x10^3/uL (140-400) Neutrophils (%) (Auto) 67 % (31-73) Lymphocytes (%) (Auto) 13 % (24-48) Monocytes (%) (Auto) 15 % (0-9) Eosinophils (%) (Auto) 5 % (0-3) Basophils (%) (Auto) 1 % (0-3) Neutrophils # (Auto) 5.2 x10^3uL (1.8-7.7) Lymphocytes # (Auto) 1.0 x10^3/uL (1.0-4.8) Monocytes # (Auto) 1.1 x10^3/uL (0.0-1.1) Eosinophils # (Auto) 0.4 x10^3/uL (0.0-0.7) Basophils # (Auto) 0.1 x10^3/uL (0.0-0.2) Sodium Level 135 mmol/L (136-145) Potassium Level 3.7 mmol/L (3.5-5.1) Chloride Level 99 mmol/L (98-107) Carbon Dioxide Level 29 mmol/L (21-32) Anion Gap 7 (6-14) Blood Urea Nitrogen 12 mg/dL (8-26) Creatinine 1.0 mg/dL (0.7-1.3) Estimated GFR (Cockcroft-Gault) 74.8 Glucose Level 117 mg/dL (70-99) Calcium Level 9.1 mg/dL (8.5-10.1) Microbiology 06/19/17 Blood Culture - Preliminary, Resulted NO GROWTH AFTER 3 DAYS 06/06/17 Anaerobic/Aerobic Culture - Final, Complete 06/06/17 Anaerobic Culture Result 1 (AISSATOU) - Final, Complete 06/06/17 Anaerobic Culture Result 2 (AISSATOU) - Final, Complete 06/06/17 Aerobic Culture - Final, Complete 06/06/17 Aerobic Culture Result 1 (AISSATOU) - Final, Complete 06/06/17 Aerobic Culture Result 2 (AISSATOU) - Final, Complete 06/06/17 Antimicrobic Susceptibility - Final, Complete 06/20/17 Gram Stain - Final, Complete Medications Current Medications Sodium Chloride 1,000 ml @ 1,000 mls/hr 1X ONCE IV Last administered on 08:22; Start 06/06/17 at 08:30; Stop 06/06/17 at 09:29; Status DC Ondansetron HCl (Zofran) 8 mg 1X ONCE IV Last administered on 06/06/17 08:23 ; Start 06/06/17 at 08:30; Stop 06/06/17 at 08:31; Status DC Morphine Sulfate 5 mg 1X ONCE IV Last administered on 06/06/17 08:29; Start 06/06/17 at 08:30; Stop 06/06/17 at 08:31; Status DC Potassium Chloride (Klor-Con) 40 meq 1X ONCE PO Last administered on 09:31; Start 06/06/17 at 08:30; Stop 06/06/17 at 08:31; Status DC Potassium Chloride/Sodium Chloride 1,000 ml @ 250 mls/hr 1X ONCE IV Last administered on 06/06/17 09:36; Start 06/06/17 at 08:30; Stop 06/06/17 at 12:29 ; Status DC Iohexol (Omnipaque 300 Mg/ml) 60 ml 1X ONCE IV Last administered on 06/06/17 08:51; Start 06/06/17 at 08:45; Stop 06/06/17 at 08:46; Status DC Magnesium Oxide (Magnesium Oxide) 800 mg 1X STAT PO Last administered on 09:31; Start 06/06/17 at 08:37; Stop 06/06/17 at 08:40; Status DC Info (Do NOT chart on this entry -- for MONITORING) 1 each PRN DAILY PRN MC SEE COMMENTS; Start 06/06/17 at 08:45; Stop 06/08/17 at 08:44; Status DC Metronidazole 100 ml @ 100 mls/hr 1X ONCE IV Last administered on 06/06/17t 10:00; Start 06/06/17 at 09:30; Stop 06/06/17 at 10:29; Status DC Levofloxacin/ Dextrose (Levaquin Per Pharmacy) 1 each PRN DAILY PRN MC SEE COMMENTS; Start 06/06/17 at 09:30; Stop 06/08/17 at 09:20; Status DC Levofloxacin/ Dextrose 100 ml @ 100 mls/hr 1X ONCE IV ; Start 06/06/17 at 09: 30; Stop 06/06/17 at 10:29; Status DC Levofloxacin/ Dextrose 100 ml @ 100 mls/hr Q24H IV Last administered on 11:36; Start 06/07/17 at 10:00; Stop 06/08/17 at 08:03; Status DC Rocuronium [place] (Zemuron) 100 mg STK-MED ONCE .ROUTE ; Start 06/06/17 at 10: 28; Stop 06/06/17 at 10:29; Status DC Fentanyl Citrate (Fentanyl 5ml Vial) 250 mcg STK-MED ONCE .ROUTE ; Start at 10:28; Stop 06/06/17 at 10:29; Status DC Propofol 20 ml @ As Directed STK-MED ONCE IV ; Start 06/06/17 at 10:32; Stop at 10:33; Status DC Lidocaine HCl (Lidocaine Pf 2% Vial) 5 ml STK-MED ONCE .ROUTE ; Start 06/06/17 at 10:32; Stop 06/06/17 at 10:33; Status DC Ondansetron HCl (Zofran) 4 mg STK-MED ONCE .ROUTE ; Start 06/06/17 at 10:33; Stop 06/06/17 at 10:34; Status DC Dexamethasone Sodium Phosphate (Decadron) 20 mg STK-MED ONCE .ROUTE ; Start 06/06/17 at 10:33; Stop 06/06/17 at 10:34; Status DC Multivitamins 10 ml/Folic Acid 1 mg/Thiamine HCl 100 mg/Ringer's Solution 1, 011.2 ml @ 1,000 mls/ hr 1X ONCE IV ; Start 06/06/17 at 11:30; Stop 06/06/17 at 12:30; Status DC Fentanyl Citrate (Fentanyl 2ml Vial) 25 mcg PRN Q5MIN PRN IV MILD PAIN; Start 06/06/17 at 11:45; Stop 06/07/17 at 11:44; Status DC Fentanyl Citrate (Fentanyl 2ml Vial) 50 mcg PRN Q5MIN PRN IV MODERATE PAIN Last administered on 06/06/17 17:24; Start 06/06/17 at 11:45; Stop 06/07/17 at 11:44; Status DC Morphine Sulfate 1 mg PRN Q10MIN PRN IV SEVERE PAIN Last administered on t 15:38; Start 06/06/17 at 11:45; Stop 06/07/17 at 11:44; Status DC Ringer's Solution 1,000 ml @ 30 mls/hr Q24H IV ; Start 06/06/17 at 11:39; Stop 06/06/17 at 23:38; Status DC Lidocaine HCl (Xylocaine-Mpf 1% Vial) 2 ml 1X PRN PRN ID IV START; Start at 11:45; Stop 06/07/17 at 11:44; Status DC Hydromorphone HCl (Dilaudid) 0.5 mg PRN Q10MIN PRN IV SEV PAIN, Second choice; Start 06/06/17 at 11:45; Stop 06/07/17 at 11:44; Status DC Prochlorperazine Edisylate (Compazine) 5 mg PACU PRN PRN IV NAUSEA, MRX1; Start 06/06/17 at 11:45; Stop 06/07/17 at 11:44; Status DC Phenylephrine HCl (Pedro-Synephrine Inj) 10 mg STK-MED ONCE .ROUTE ; Start at 11:58; Stop 06/06/17 at 11:59; Status DC Sodium Chloride (Sodium Chloride) 50 ml STK-MED ONCE IJ ; Start 06/06/17 at 11: 58; Stop 06/06/17 at 11:59; Status DC Sevoflurane (Ultane) 90 ml STK-MED ONCE IH ; Start 06/06/17 at 13:52; Stop 06/06 at 13:53; Status DC Neostigmine Methylsulfate 5 mg STK-MED ONCE .ROUTE ; Start 06/06/17 at 13:52; Stop 06/06/17 at 13:53; Status DC Glycopyrrolate (Robinul) 1 mg STK-MED ONCE .ROUTE ; Start 06/06/17 at 13:52; Stop 06/06/17 at 13:53; Status DC Fentanyl Citrate (Fentanyl 2ml Vial) 100 mcg STK-MED ONCE .ROUTE ; Start at 14:18; Stop 06/06/17 at 14:19; Status DC Diphenhydramine HCl (Benadryl) 25 mg PRN Q6HRS PRN IV ITCHING; Start 06/06/17 at 14:30 Enoxaparin Sodium (Lovenox 40mg Syringe) 40 mg Q24H SQ Last administered on 15:00; Start 06/06/17 at 15:00; Stop 06/06/17 at 15:41; Status DC Sodium Chloride (Normal Saline Flush) 3 ml QSHIFT PRN IV AFTER MEDS AND BLOOD DRAWS; Start 06/06/17 at 14:30 Potassium Chloride/Sodium Chloride 1,000 ml @ 100 mls/hr Q10H IV Last administered on 06/07/17 20:00; Start 06/06/17 at 15:00; Stop 06/08/17 at 09: 20; Status DC Hydromorphone HCl 30 ml @ 0 mls/hr CONT PRN PRN IV PROTOCOL; Start 06/06/17 at 14:30; Stop 06/06/17 at 17:30; Status DC Ondansetron HCl (Zofran) 4 mg PRN Q6HRS PRN IV NAUESA, 1ST CHOICE; Start at 14:30 Epinephrine (S2 Racepinephrine) 0.5 ml STK-MED ONCE .ROUTE ; Start 06/06/17 at 14:35; Stop 06/06/17 at 14:36; Status DC Propofol 50 ml @ As Directed STK-MED ONCE IV ; Start 06/06/17 at 14:38; Stop at 14:39; Status DC Succinylcholine Chloride (Anectine) 200 mg STK-MED ONCE .ROUTE ; Start 06/06/17 at 14:40; Stop 06/06/17 at 14:41; Status DC Epinephrine (S2 Racepinephrine) 0.5 ml 1X ONCE NEB Last administered on 14:43; Start 06/06/17 at 14:36; Stop 06/06/17 at 14:43; Status DC Midazolam HCl (Versed) 2 mg STK-MED ONCE .ROUTE ; Start 06/06/17 at 14:48; Stop 06/06/17 at 14:49; Status DC Propofol 100 ml @ 0 mls/hr CONT PRN IV SEE I/O RECORD; Start 06/06/17 at 15:15 ; Stop 06/08/17 at 09:20; Status DC Propofol 50 ml @ As Directed STK-MED ONCE IV ; Start 06/06/17 at 15:03; Stop at 15:04; Status DC Dexamethasone Sodium Phosphate (Decadron) 12 mg 1X ONCE IV Last administered on 06/06/17 15:09; Start 06/06/17 at 15:00; Stop 06/06/17 at 15:06; Status DC Dexamethasone Sodium Phosphate (Decadron) 4 mg STK-MED ONCE .ROUTE ; Start 06/06 at 15:05; Stop 06/06/17 at 15:06; Status DC Propofol 50 ml @ 0 mls/hr 1X ONCE IV Last administered on 06/06/17 15:02; Start 06/06/17 at 15:15; Stop 06/06/17 at 15:16; Status DC Succinylcholine Chloride (Anectine) 200 mg 1X ONCE IV ; Start 06/06/17 at 15:15 ; Stop 06/06/17 at 15:16; Status DC Midazolam HCl (Versed) 2 mg 1X ONCE IV ; Start 06/06/17 at 15:15; Stop at 15:16; Status DC Cellulose 1 each STK-MED ONCE .ROUTE Last administered on 06/06/17 13:35; Start 06/06/17 at 14:19; Stop 06/06/17 at 15:20; Status DC Enoxaparin Sodium (Lovenox 40mg Syringe) 40 mg Q24H SQ Last administered on 08:48; Start 06/07/17 at 09:00; Stop 06/12/17 at 10:16; Status DC Metronidazole 100 ml @ 100 mls/hr Q12HR IV Last administered on 06/12/17 21: 32; Start 06/06/17 at 21:00; Stop 06/13/17 at 07:45; Status DC Multivitamins 10 ml/Folic Acid 1 mg/Thiamine HCl 100 mg/Dextrose/ Lactated Ringer's 1,011.2 ml @ 100 mls/ hr DAILY IV Last administered on 06/07/17 09: 21; Start 06/07/17 at 09:00; Stop 06/08/17 at 08:06; Status DC Lorazepam (Ativan) 2 mg PRN Q4HRS PRN IV ANXIETY / AGITATION; Start 06/06/17 at 15:45; Stop 06/12/17 at 10:16; Status DC Famotidine (Pepcid) 20 mg BID IVP Last administered on 06/08/17 11:18; Start 06/06/17 at 21:00; Stop 06/09/17 at 07:53; Status DC Morphine Sulfate 2 mg PRN Q2HR PRN IV moderate pain Last administered on 22:59; Start 06/06/17 at 15:45 Morphine Sulfate 4 mg PRN Q2HR PRN IV SEVERE PAIN Last administered on 08:31; Start 06/06/17 at 15:45 Ondansetron HCl (Zofran) 4 mg PRN Q6HRS PRN IV NAUSEA/VOMITING; Start 06/06/17 at 15:45; Stop 06/06/17 at 15:45; Status DC Fentanyl Citrate 30 ml @ 0 mls/hr CONT PRN IV PROTOCOL Last administered on 02:54; Start 06/06/17 at 17:30; Stop 06/07/17 at 10:39; Status DC Midazolam HCl 100 ml @ 0 mls/hr CONT PRN IV SEE I/O RECORD; Start 06/06/17 at 23:00; Stop 06/08/17 at 09:20; Status DC Sodium Chloride 1,000 ml @ 1,000 mls/hr 1X ONCE IV Last administered on 23:34; Start 06/06/17 at 23:00; Stop 06/06/17 at 23:59; Status DC Magnesium Sulfate/ Dextrose 50 ml @ 25 mls/hr 1X ONCE IV Last administered on 06/07/17 09:28; Start 06/07/17 at 08:15; Stop 06/07/17 at 10:14; Status DC Info 1 each PRN DAILY PRN MC SEE COMMENTS Last administered on 06/19/17 13:27 ; Start 06/07/17 at 09:30; Stop 06/20/17 at 12:47; Status DC Methylprednisolone Sodium Succinate (SOLU-Medrol 125MG VIAL) 50 mg DAILY IV Last administered on 06/12/17 08:47; Start 06/07/17 at 11:00; Stop 06/12/17 at 10:16; Status DC Hydromorphone HCl 30 ml @ 0 mls/hr CONT PRN PRN IV PROTOCOL Last administered on 06/07/17 11:16; Start 06/07/17 at 10:45; Stop 06/09/17 at 08:57; Status DC Sodium Chloride 90 meq/Potassium Chloride 50 meq/ Potassium Phosphate 13.6 mmol/ Magnesium Sulfate 10 meq/ Calcium Gluconate 10 meq/ Multivitamins 10 ml/Chromium / Copper/Manganese/ Seleni/Zn 1 ml/ Total Parenteral Nutrition/Amino Acids/ Dextrose/ Fat Emulsion Intravenous 1,512 ml @ 63 mls/hr TPN CONT IV Last administered on 06/07/17 22:04; Start 06/07/17 at 22:00; Stop 06/08/17 at 21 :59; Status DC Influenza Virus Vaccine Quadrival (Fluarix Quad [id number] Syringe) 0.5 ml ONCE ONCE VAX IM Last administered on 06/08/17 13:23; Start 06/07/17 at 16:15; Stop 06/07/17 at 16:35; Status DC Pneumococcal Polyvalent Vaccine (Do NOT chart on this placeholder) 1 each PRN 1X PRN MC SEE COMMENTS; Start 06/07/17 at 16:45; Status UNV Pneumococcal Polyvalent Vaccine (Pneumovax 23) 0.5 ml ONCE ONCE VAX IM Last administered on 06/08/17 13:25; Start 06/07/17 at 17:00; Stop 06/07/17 at 17 :01; Status DC Ceftriaxone Sodium 1 gm/ Sodium Chloride 50 ml @ 100 mls/hr Q24H IV Last administered on 06/12/17 08:45; Start 06/08/17 at 09:00; Stop 06/13/17 at 07 :45; Status DC Sodium Phosphate 20 mmol/Dextrose 256.6667 ml @ 64.167 m... 1X ONCE IV Last administered on 06/08/17 08:58; Start 06/08/17 at 09:00; Stop 06/08/17 at 12 :59; Status DC Multi-Ingred Cream/Lotion/Oil/ Oint (Artificial Tears Eye Oint) 1 juvenal PRN Q1HR PRN OU DRY EYE; Start 06/08/17 at 09:15 Sodium Chloride 90 meq/Potassium Chloride 40 meq/ Potassium Phosphate 17 mmol/ Magnesium Sulfate 10 meq/Calcium Gluconate 10 meq/ Multivitamins 10 ml/Chromium / Copper/Manganese/ Seleni/Zn 1 ml/ Total Parenteral Nutrition/Amino Acids/ Dextrose/ Fat Emulsion Intravenous 1,512 ml @ 63 mls/hr TPN CONT IV Last administered on 06/08/17 22:42; Start 06/08/17 at 22:00; Stop 06/09/17 at 21 :59; Status DC Diclofenac Sodium (Voltaren) 1 juvenal BID TP Last administered on 06/16/17 09:16 ; Start 06/08/17 at 21:00 Oxycodone/ Acetaminophen (Percocet 10/325) 1 tab PRN Q4HRS PRN PO pain Last administered on 06/15/17 08:48; Start 06/09/17 at 08:00; Stop 06/15/17 at 10 :39; Status DC Magnesium Sulfate/ Dextrose 50 ml @ 25 mls/hr 1X ONCE IV Last administered on 06/09/17 09:31; Start 06/09/17 at 08:00; Stop 06/09/17 at 09:59; Status DC Potassium Phosphate (K-Phos Original) 500 mg BID PO Last administered on 07:48; Start 06/09/17 at 09:00 Lidocaine (Lidoderm) 1 patch DAILY TD Last administered on 06/09/17 09:36; Start 06/09/17 at 09:00; Stop 06/10/17 at 20:50; Status DC Potassium Phosphate 13.6 mmol/Sodium Chloride 104.5333 ml @ 52.267 m... 1X ONCE IV Last administered on 06/09/17 13:51; Start 06/09/17 at 13:30; Stop 06/09/17 at 15:29; Status DC Sodium Chloride 40 meq/Sodium Acetate 50 meq/ Potassium Chloride 40 meq/ Potassium Phosphate 20 mmol/ Magnesium Sulfate 15 meq/Calcium Gluconate 10 meq/ Multivitamins 10 ml/Chromium/ Copper/Manganese/ Seleni/Zn 1 ml/ Total Parenteral Nutrition/Amino Acids/Dextrose/ Fat Emulsion Intravenous 1,512 ml @ 63 mls/hr TPN CONT IV Last administered on 06/09/17 22:11; Start 06/09/17 at 22:00; Stop 06/10/17 at 21:59; Status DC Potassium Chloride (Klor-Con) 40 meq 1X ONCE PO Last administered on 10:40; Start 06/10/17 at 09:30; Stop 06/10/17 at 09:31; Status DC Potassium Chloride (Klor-Con) 20 meq [id number] PO Last administered on 07:49; Start 06/11/17 at 08:00 Magnesium Sulfate/ Dextrose 50 ml @ 25 mls/hr 1X ONCE IV Last administered on 06/10/17 10:38; Start 06/10/17 at 10:00; Stop 06/10/17 at 11:59; Status DC Sodium Chloride 40 meq/Sodium Acetate 50 meq/ Potassium Acetate 60 meq/ Potassium Phosphate 18 mmol/ Magnesium Sulfate 18 meq/Calcium Gluconate 10 meq/ Multivitamins 10 ml/Chromium/ Copper/Manganese/ Seleni/Zn 1 ml/ Total Parenteral Nutrition/Amino Acids/Dextrose/ Fat Emulsion Intravenous 1,512 ml @ 63 mls/hr TPN CONT IV Last administered on 06/10/17 21:43; Start 06/10/17 at 22:00; Stop 06/11/17 at 22:00; Status DC Lidocaine (Lidoderm) 1 patch QHS TD Last administered on 06/10/17 21:37; Start 06/10/17 at 21:00; Stop 06/12/17 at 05:01; Status DC Magnesium Sulfate/ Dextrose 100 ml @ 25 mls/hr 1X ONCE IV Last administered on 06/11/17 11:22; Start 06/11/17 at 09:00; Stop 06/11/17 at 12:59; Status DC Lisinopril (Prinivil) 10 mg DAILY PO Last administered on 06/13/17 08:34; Start 06/11/17 at 13:00; Stop 06/13/17 at 09:19; Status DC Metoprolol Succinate (Toprol Xl) 100 mg DAILY PO Last administered on 11:29; Start 06/11/17 at 13:00 Hydrochlorothiazide (Hydrodiuril) 25 mg DAILY PO Last administered on 11:28; Start 06/11/17 at 13:00 Sodium Chloride 40 meq/Sodium Acetate 50 meq/ Potassium Acetate 60 meq/ Potassium Phosphate 18 mmol/ Magnesium Sulfate 18 meq/Calcium Gluconate 10 meq/ Multivitamins 10 ml/Chromium/ Copper/Manganese/ Seleni/Zn 1 ml/ Total Parenteral Nutrition/Amino Acids/Dextrose/ Fat Emulsion Intravenous 1,512 ml @ 63 mls/hr TPN CONT IV Last administered on 06/11/17 21:43; Start 06/11/17 at 22:00; Stop 06/12/17 at 21:59; Status DC Lidocaine (Lidoderm) 1 patch DAILY TD Last administered on 06/22/17 08:49; Start 06/12/17 at 09:00 Hydralazine HCl (Apresoline Inj) 10 mg PRN Q4HRS PRN IVP ELEVATED BP, SEE COMMENTS; Start 06/12/17 at 09:00 Magnesium Sulfate/ Dextrose 100 ml @ 25 mls/hr 1X ONCE IV Last administered on 06/12/17 09:53; Start 06/12/17 at 09:30; Stop 06/12/17 at 13:29; Status DC Magnesium Oxide (Magnesium Oxide) 400 mg DAILY PO Last administered on 07:49; Start 06/12/17 at 09:30 Lorazepam (Ativan) 1 mg PRN Q4HRS PRN IV ANXIETY / AGITATION; Start 06/12/17 at 10:15 Alprazolam (Xanax) 0.5 mg PRN Q8HRS PRN PO ANXIETY / AGITATION; Start at 10:15 Prednisone (Prednisone) 20 mg DAILY PO Last administered on 06/13/17 08:34; Start 06/13/17 at 09:00; Stop 06/13/17 at 15:06; Status DC Sodium Chloride 60 meq/Sodium Acetate 50 meq/ Potassium Acetate 60 meq/ Potassium Phosphate 18 mmol/ Magnesium Sulfate 27 meq/Calcium Gluconate 10 meq/ Multivitamins 10 ml/Chromium/ Copper/Manganese/ Seleni/Zn 1 ml/ Total Parenteral Nutrition/Amino Acids/Dextrose/ Fat Emulsion Intravenous 1,512 ml @ 63 mls/hr TPN CONT IV Last administered on 06/12/17 21:33; Start 06/12/17 at 22:00; Stop 06/13/17 at 21:59; Status DC Metronidazole (Flagyl) 500 mg Q12HR PO Last administered on 06/15/17 21:48; Start 06/13/17 at 09:00; Stop 06/16/17 at 09:05; Status DC Cefpodoxime Proxetil (Vantin) 200 mg BID PO Last administered on 06/15/17 21: 49; Start 06/13/17 at 09:00; Stop 06/16/17 at 09:05; Status DC Lisinopril (Prinivil) 20 mg DAILY PO Last administered on 06/22/17 12:10; Start 06/14/17 at 09:00 Lisinopril (Prinivil) 10 mg 1X ONCE PO ; Start 06/13/17 at 09:30; Stop at 09:31; Status DC Docusate Sodium (Colace) 100 mg BID PO Last administered on 06/23/17 07:48; Start 06/13/17 at 11:30 Sodium Chloride 60 meq/Sodium Acetate 50 meq/ Potassium Acetate 60 meq/ Potassium Phosphate 18 mmol/ Magnesium Sulfate 27 meq/Calcium Gluconate 10 meq/ Multivitamins 10 ml/Chromium/ Copper/Manganese/ Seleni/Zn 1 ml/ Total Parenteral Nutrition/Amino Acids/Dextrose/ Fat Emulsion Intravenous 1,512 ml @ 63 mls/hr TPN CONT IV Last administered on 06/13/17 22:31; Start 06/13/17 at 22:00; Stop 06/14/17 at 21:59; Status DC Lisinopril (Prinivil) 10 mg 1X ONCE PO Last administered on 06/13/17 16:18; Start 06/13/17 at 14:45; Stop 06/13/17 at 14:46; Status DC Polyethylene Glycol (miraLAX PACKET) 17 gm DAILY PO ; Start 06/14/17 at 09:30; Stop 06/14/17 at 11:47; Status DC Magnesium Hydroxide (Milk Of Magnesia) 2,400 mg PRN DAILY PRN PO CONSTIPATION; Start 06/14/17 at 09:30; Stop 06/14/17 at 11:47; Status DC Magnesium Hydroxide (Milk Of Magnesia) 2,400 mg 1X ONCE PO ; Start 06/14/17 at 09:30; Stop 06/14/17 at 09:31; Status Cancel Magnesium Sulfate/ Dextrose 100 ml @ 25 mls/hr 1X ONCE IV Last administered on 06/14/17 12:03; Start 06/14/17 at 10:00; Stop 06/14/17 at 13:59; Status DC Sodium Chloride 80 meq/Sodium Acetate 50 meq/ Potassium Acetate 60 meq/ Potassium Phosphate 18 mmol/ Magnesium Sulfate 27 meq/Calcium Gluconate 10 meq/ Multivitamins 10 ml/Chromium/ Copper/Manganese/ Seleni/Zn 1 ml/ Total Parenteral Nutrition/Amino Acids/Dextrose/ Fat Emulsion Intravenous 1,512 ml @ 63 mls/hr TPN CONT IV Last administered on 06/14/17 22:34; Start 06/14/17 at 22:00; Stop 06/15/17 at 21:59; Status DC Hydromorphone HCl (Dilaudid) 1 mg 1X ONCE IV Last administered on 06/14/17 15:47; Start 06/14/17 at 13:15; Stop 06/14/17 at 13:16; Status DC Iohexol (Omnipaque 300 Mg/ml) 75 ml 1X ONCE IV Last administered on 13:56; Start 06/14/17 at 13:30; Stop 06/14/17 at 13:31; Status DC Info (Do NOT chart on this entry -- for MONITORING) 1 each PRN DAILY PRN MC SEE COMMENTS; Start 06/14/17 at 13:15; Stop 06/16/17 at 13:14; Status DC Oxycodone/ Acetaminophen (Percocet 10/325) 1 tab Q4HRS PO Last administered on 06/23/17 07:49; Start 06/15/17 at 12:00 Sodium Chloride 80 meq/Sodium Acetate 50 meq/ Potassium Acetate 60 meq/ Potassium Phosphate 18 mmol/ Magnesium Sulfate 27 meq/Calcium Gluconate 10 meq/ Multivitamins 10 ml/Chromium/ Copper/Manganese/ Seleni/Zn 1 ml/ Total Parenteral Nutrition/Amino Acids/Dextrose/ Fat Emulsion Intravenous 1,512 ml @ 63 mls/hr TPN CONT IV Last administered on 06/15/17 22:14; Start 06/15/17 at 22:00; Stop 06/16/17 at 21:59; Status DC Meropenem 1 gm/ Sodium Chloride 100 ml @ 200 mls/hr Q8HRS IV Last administered on 06/22/17 20:34; Start 06/16/17 at 14:00; Stop 06/23/17 at 08 :58; Status DC Vancomycin HCl (Vanco Per Pharmacy) 1 each PRN DAILY PRN MC SEE COMMENTS Last administered on 06/20/17 15:56; Start 06/16/17 at 09:00; Stop 06/21/17 at 08 :16; Status DC Fluconazole/ Sodium Chloride 200 ml @ 100 mls/hr Q24H IV Last administered on 06/20/17 10:39; Start 06/16/17 at 10:00; Stop 06/21/17 at 08:16; Status DC Vancomycin HCl 2 gm/Dextrose 500 ml @ 250 mls/hr 1X ONCE IV Last administered on 06/16/17 11:57; Start 06/16/17 at 11:00; Stop 06/16/17 at 12 :59; Status DC Magnesium Sulfate/ Dextrose 50 ml @ 25 mls/hr 1X ONCE IV Last administered on 06/16/17 11:56; Start 06/16/17 at 10:30; Stop 06/16/17 at 12:30; Status DC Vancomycin HCl 1.25 gm/Dextrose 250 ml @ 167 mls/hr Q12H IV Last administered on 06/21/17 00:01; Start 06/17/17 at 00:00; Stop 06/21/17 at 08:16; Status DC Vancomycin HCl 1 each 1X ONCE MC Last administered on 06/18/17 23:30; Start 06/18/17 at 23:30; Stop 06/18/17 at 23:31; Status DC Sodium Chloride 80 meq/Sodium Acetate 50 meq/ Potassium Acetate 60 meq/ Potassium Phosphate 18 mmol/ Magnesium Sulfate 30 meq/Calcium Gluconate 10 meq/ Multivitamins 10 ml/Chromium/ Copper/Manganese/ Seleni/Zn 1 ml/ Total Parenteral Nutrition/Amino Acids/Dextrose/ Fat Emulsion Intravenous 1,512 ml @ 63 mls/hr TPN CONT IV Last administered on 06/16/17 22:03; Start 06/16/17 at 22:00; Stop 06/17/17 at 21:59; Status DC Lactobacillus Acidophilus (Bacid, Jenniffer-Bid) 1 tab BID PO Last administered on 06/19/17 09:40; Start 06/16/17 at 21:00; Stop 06/19/17 at 09:01; Status DC Magnesium Sulfate/ Dextrose 50 ml @ 25 mls/hr 1X ONCE IV Last administered on 06/17/17 10:00; Start 06/17/17 at 10:00; Stop 06/17/17 at 11:59; Status DC Sodium Chloride 80 meq/Sodium Acetate 50 meq/ Potassium Acetate 60 meq/ Potassium Phosphate 18 mmol/ Magnesium Sulfate 30 meq/Calcium Gluconate 10 meq/ Multivitamins 10 ml/Chromium/ Copper/Manganese/ Seleni/Zn 1 ml/ Total Parenteral Nutrition/Amino Acids/Dextrose/ Fat Emulsion Intravenous 1,512 ml @ 63 mls/hr TPN CONT IV Last administered on 06/17/17 22:00; Start 06/17/17 at 22:00; Stop 06/18/17 at 21:59; Status DC Sodium Chloride 95 meq/Sodium Acetate 50 meq/ Potassium Acetate 60 meq/ Potassium Phosphate 18 mmol/ Magnesium Sulfate 30 meq/Calcium Gluconate 10 meq/ Multivitamins 10 ml/Chromium/ Copper/Manganese/ Seleni/Zn 1 ml/ Total Parenteral Nutrition/Amino Acids/Dextrose/ Fat Emulsion Intravenous 1,512 ml @ 63 mls/hr TPN CONT IV Last administered on 06/18/17 22:06; Start 06/18/17 at 22:00; Stop 06/19/17 at 21:59; Status DC Lactobacillus Rhamnosus (Culturelle) 1 cap BID PO Last administered on 07:49; Start 06/19/17 at 21:00 Sodium Chloride 95 meq/Sodium Acetate 50 meq/ Potassium Acetate 60 meq/ Potassium Phosphate 18 mmol/ Magnesium Sulfate 30 meq/Calcium Gluconate 10 meq/ Multivitamins 10 ml/Chromium/ Copper/Manganese/ Seleni/Zn 1 ml/ Total Parenteral Nutrition/Amino Acids/Dextrose/ Fat Emulsion Intravenous 1,512 ml @ 63 mls/hr TPN CONT IV Last administered on 06/19/17 22:18; Start 06/19/17 at 22:00; Stop 06/20/17 at 21:59; Status DC Chlorhexidine Gluconate (Peridex) 15 ml BID SWSP Last administered on 10:31; Start 06/20/17 at 09:30 Ferrous Sulfate (Feosol) 325 mg DAILYWBKFT PO Last administered on 06/23/17 07:49; Start 06/20/17 at 13:00 Linezolid (Zyvox) 600 mg BID PO Last administered on 06/23/17 07:49; Start 06/21/17 at 09:00; Stop 06/23/17 at 08:58; Status DC Albumin Human 100 ml @ 100 mls/hr Q6HRS IV Last administered on 06/23/17 00: 27; Start 06/21/17 at 18:00 Oxycodone/ Acetaminophen (Percocet 10/325) 1 tab ONCE ONCE PO Last administered on 06/22/17 08:30; Start 06/22/17 at 08:20; Stop 06/22/17 at 08 :21; Status DC Active Scripts Active Reported [prednisone taper] Metoprolol Succinate ( Xl ) (Metoprolol Succinate) 100 Mg Tab.er.24h 1 Tab PO DAILY Lisinopril 10 Mg Tablet 1 Tab PO DAILY Hydrochlorothiazide Tablet (Hydrochlorothiazide) 50 Mg Tablet 25 Tab PO DAILY Vitals/I & O Vital Sign - Last 24 Hours 06/22/17 06/22/17 06/22/17 06/22/17 11:29 12:10 12:10 15:00 Temp 98.6 98.6 Pulse 85 85 81 Resp 16 18 B/P (MAP) 119/68 119/68 103/68 (80) Pulse Ox 93 O2 Delivery Room Air Room Air 06/22/17 06/22/17 06/22/17 06/22/17 16:28 19:00 20:00 20:30 Temp 98.2 98.2 Pulse 89 Resp 16 19 20 B/P (MAP) 121/56 (77) Pulse Ox 89 93 O2 Delivery Room Air Room Air Room Air Room Air 06/23/17 06/23/17 06/23/17 06/23/17 00:27 03:00 03:42 04:42 Temp 98.0 98.0 Pulse 80 Resp 20 18 20 B/P (MAP) 111/59 (76) Pulse Ox 93 96 94 94 O2 Delivery Room Air Nasal Cannula Nasal Cannula O2 Flow Rate 3.0 3.0 06/23/17 06/23/17 06/23/17 06/23/17 07:49 08:08 08:49 09:00 Temp 100.6 100.6 Pulse 43 85 Resp 16 18 16 B/P (MAP) 109/54 (72) 105/61 O2 Delivery Nasal Cannula Nasal Cannula Nasal Cannula O2 Flow Rate 1.0 3.0 2.0 06/23/17 06/23/17 09:00 10:06 Temp 99.1 99.1 Pulse 85 98 Resp 18 B/P (MAP) 105/61 105/61 (76) O2 Delivery Room Air TAMMY LEPE MD Jun 23, 2017 11:23
--- NOTE | 2017-06-23 16:31 | PDOC ---
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 General: Alert, Oriented X3, No acute distress Abdomen: Soft, Other (stoma with soft stool, wound with serous drainage) Psych/Mental Status: Mental status NL Labs Laboratory Tests Test 06/22/17 04:37 06/22/17 07:16 06/22/17 11:30 06/22/17 16:33 White Blood Count 7.7 x10^3/uL (4.0-11.0) Red Blood Count 2.86 x10^6/uL (4.30-5.70) Hemoglobin 8.1 g/dL (13.0-17.5) Hematocrit 24.1 % (39.0-53.0) Mean Corpuscular Volume 84 fL (79-100) Mean Corpuscular Hemoglobin 28 pg (25-35) Mean Corpuscular Hemoglobin Concent 34 g/dL (31-37) Red Cell Distribution Width 14.0 % (11.5-14.5) Platelet Count 508 x10^3/uL (140-400) Neutrophils (%) (Auto) 65 % (31-73) Lymphocytes (%) (Auto) 15 % (24-48) Monocytes (%) (Auto) 15 % (0-9) Eosinophils (%) (Auto) 5 % (0-3) Basophils (%) (Auto) 1 % (0-3) Neutrophils # (Auto) 5.0 x10^3uL (1.8-7.7) Lymphocytes # (Auto) 1.2 x10^3/uL (1.0-4.8) Monocytes # (Auto) 1.1 x10^3/uL (0.0-1.1) Eosinophils # (Auto) 0.4 x10^3/uL (0.0-0.7) Basophils # (Auto) 0.1 x10^3/uL (0.0-0.2) Sodium Level 133 mmol/L (136-145) Potassium Level 4.0 mmol/L (3.5-5.1) Chloride Level 97 mmol/L (98-107) Carbon Dioxide Level 28 mmol/L (21-32) Anion Gap 8 (6-14) Blood Urea Nitrogen 15 mg/dL (8-26) Creatinine 1.1 mg/dL (0.7-1.3) Estimated GFR (Cockcroft-Gault) 67.0 Glucose Level 98 mg/dL (70-99) Calcium Level 8.8 mg/dL (8.5-10.1) Albumin 2.6 g/dL (3.4-5.0) Glucose (Fingerstick) 93 mg/dL (70-99) 104 mg/dL (70-99) 116 mg/dL (70-99) Test 06/22/17 20:55 06/23/17 03:10 Glucose (Fingerstick) 128 mg/dL (70-99) White Blood Count 7.7 x10^3/uL (4.0-11.0) Red Blood Count 2.51 x10^6/uL (4.30-5.70) Hemoglobin 7.2 g/dL (13.0-17.5) Hematocrit 21.3 % (39.0-53.0) Mean Corpuscular Volume 85 fL (79-100) Mean Corpuscular Hemoglobin 29 pg (25-35) Mean Corpuscular Hemoglobin Concent 34 g/dL (31-37) Red Cell Distribution Width 13.8 % (11.5-14.5) Platelet Count 420 x10^3/uL (140-400) Neutrophils (%) (Auto) 67 % (31-73) Lymphocytes (%) (Auto) 13 % (24-48) Monocytes (%) (Auto) 15 % (0-9) Eosinophils (%) (Auto) 5 % (0-3) Basophils (%) (Auto) 1 % (0-3) Neutrophils # (Auto) 5.2 x10^3uL (1.8-7.7) Lymphocytes # (Auto) 1.0 x10^3/uL (1.0-4.8) Monocytes # (Auto) 1.1 x10^3/uL (0.0-1.1) Eosinophils # (Auto) 0.4 x10^3/uL (0.0-0.7) Basophils # (Auto) 0.1 x10^3/uL (0.0-0.2) Sodium Level 135 mmol/L (136-145) Potassium Level 3.7 mmol/L (3.5-5.1) Chloride Level 99 mmol/L (98-107) Carbon Dioxide Level 29 mmol/L (21-32) Anion Gap 7 (6-14) Blood Urea Nitrogen 12 mg/dL (8-26) Creatinine 1.0 mg/dL (0.7-1.3) Estimated GFR (Cockcroft-Gault) 74.8 Glucose Level 117 mg/dL (70-99) Calcium Level 9.1 mg/dL (8.5-10.1) Laboratory Tests Test 06/22/17 16:33 06/22/17 20:55 06/23/17 03:10 Glucose (Fingerstick) 116 mg/dL (70-99) 128 mg/dL (70-99) White Blood Count 7.7 x10^3/uL (4.0-11.0) Red Blood Count 2.51 x10^6/uL (4.30-5.70) Hemoglobin 7.2 g/dL (13.0-17.5) Hematocrit 21.3 % (39.0-53.0) Mean Corpuscular Volume 85 fL (79-100) Mean Corpuscular Hemoglobin 29 pg (25-35) Mean Corpuscular Hemoglobin Concent 34 g/dL (31-37) Red Cell Distribution Width 13.8 % (11.5-14.5) Platelet Count 420 x10^3/uL (140-400) Neutrophils (%) (Auto) 67 % (31-73) Lymphocytes (%) (Auto) 13 % (24-48) Monocytes (%) (Auto) 15 % (0-9) Eosinophils (%) (Auto) 5 % (0-3) Basophils (%) (Auto) 1 % (0-3) Neutrophils # (Auto) 5.2 x10^3uL (1.8-7.7) Lymphocytes # (Auto) 1.0 x10^3/uL (1.0-4.8) Monocytes # (Auto) 1.1 x10^3/uL (0.0-1.1) Eosinophils # (Auto) 0.4 x10^3/uL (0.0-0.7) Basophils # (Auto) 0.1 x10^3/uL (0.0-0.2) Sodium Level 135 mmol/L (136-145) Potassium Level 3.7 mmol/L (3.5-5.1) Chloride Level 99 mmol/L (98-107) Carbon Dioxide Level 29 mmol/L (21-32) Anion Gap 7 (6-14) Blood Urea Nitrogen 12 mg/dL (8-26) Creatinine 1.0 mg/dL (0.7-1.3) Estimated GFR (Cockcroft-Gault) 74.8 Glucose Level 117 mg/dL (70-99) Calcium Level 9.1 mg/dL (8.5-10.1) Problem List Problems Medical Problems: (1) Abdominal pain Status: Acute (2) Elevated brain natriuretic peptide (BNP) level Status: Acute (3) Hypomagnesemia Status: Acute (4) Perforated abdominal viscus Status: Acute Assessment/Plan s/p sigmoid resection, end colostomy, Eufemia's pouch spent time trying to have a plan that satisfied Devin''s goals continue supportive care Problems: MARY MARTINEZ MD Jun 23, 2017 16:31
[2017-06-23] MEDS: KETOROLAC TROMETHAMINE 10 MG TABLET PO SCH (21:42)
[2017-06-24] MEDS: oxyCODONE/APAP 10/325 1 TAB TABLET PO SCH ×5 (02:03→16:00)
[2017-06-24 03:00] VITALS: BP 132/70
[2017-06-24 07:00] VITALS: BP 141/69
[2017-06-24 07:48] LABS: BASO # 0.1 x10^3/uL (0.0-0.2); BASO % 1 % (0-3); EOS % 5 % (0-3); HEMATOCRIT 23.2 % (39.0-53.0); HEMOGLOBIN 7.8 g/dL (13.0-17.5); LYMPH # 0.9 x10^3/uL (1.0-4.8); LYMPH % 11 % (24-48); MEAN CORPUSCULAR HEMOGLOBIN 29 pg (25-35); MEAN CORPUSCULAR HGB CONC 34 g/dL (31-37); MEAN CORPUSCULAR VOLUME 85 fL (79-100); MONO % 11 % (0-9); NEUT % 73 % (31-73); PLATELET COUNT 477 x10^3/uL (140-400); RED BLOOD COUNT 2.73 x10^6/uL (4.30-5.70); RED CELL DISTRIBUTION WIDTH 14.4 % (11.5-14.5); WHITE BLOOD COUNT 8.4 x10^3/uL (4.0-11.0)
--- NOTE | 2017-06-24 08:14 | PDOC ---
Infectious Disease Note Subjective Subjective Feels well this am had some pain about 3:30 and needed Oxycontin Increasing ostomy output and ambulating well ROS ROS GEN: Denies fevers, chills, sweats HEENT: Denies blurred vision, sore throat CV: Denies chest pain RESP: Denies shortness of air, cough GI: Denies n/v NEURO: Denies confusion, dizziness MSK: Denies weakness, joint pain/swelling Vital Sign Vital Signs Vital Signs Date Time Temp Pulse Resp B/P (MAP) Pulse Ox O2 Delivery O2 Flow Rate FiO2 06/24/17 03:03 16 94 Room Air 06/24/17 03:00 97.9 70 132/70 (90) 2.0 97.9 Physical Exam PHYSICAL EXAM GENERAL: NAD, Alert, in bed. Looks well HEENT: PERRL, OC/OP -clear NECK: Supple, no JVD, no LN LUNGS: Clear HEART: S1S2, no gallop, no murmur ABD: Soft, NT, no organomegaly, no rebound. Ostomy with output. Incision with less drainage/erythema. 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: Alert, oriented x 3, no focal neurologic deficit SKIN: No rash IV: ok Labs Lab Laboratory Tests Test 06/24/17 07:15 White Blood Count 8.4 x10^3/uL (4.0-11.0) Red Blood Count 2.73 x10^6/uL (4.30-5.70) Hemoglobin 7.8 g/dL (13.0-17.5) Hematocrit 23.2 % (39.0-53.0) Mean Corpuscular Volume 85 fL (79-100) Mean Corpuscular Hemoglobin 29 pg (25-35) Mean Corpuscular Hemoglobin Concent 34 g/dL (31-37) Red Cell Distribution Width 14.4 % (11.5-14.5) Platelet Count 477 x10^3/uL (140-400) Neutrophils (%) (Auto) 73 % (31-73) Lymphocytes (%) (Auto) 11 % (24-48) Monocytes (%) (Auto) 11 % (0-9) Eosinophils (%) (Auto) 5 % (0-3) Basophils (%) (Auto) 1 % (0-3) Neutrophils # (Auto) 6.1 x10^3uL (1.8-7.7) Lymphocytes # (Auto) 0.9 x10^3/uL (1.0-4.8) Monocytes # (Auto) 0.9 x10^3/uL (0.0-1.1) Eosinophils # (Auto) 0.4 x10^3/uL (0.0-0.7) Basophils # (Auto) 0.1 x10^3/uL (0.0-0.2) Micro CT abd 06/14 Impression: 1. Expected postoperative findings of partial colectomy and diverting colostomy. Small amount of gas within the abdomen is decreased from prior study, may be related to the remaining surgical drain. 2. No acute intra-abdominal findings. 3. Right lower lobe consolidation with air bronchograms concerning for pneumonia. Small right and trace left pleural effusion. Objective Assessment Fever - up again currently 100.6 but under covers. ? meds (Vanc d/c'd ? pain med vs ID vs line -now out) cults neg. Curve improving and WBC nml Perforated viscus with fecal peritonitis, E. coli & Prevotella spp. CT 06/14 reviewed. 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 Drains removed. still mild erythema about the wound but better Abdominal pain, better Respiratory failure - better - some RLL consolidation most recent CT with atelectasis/infiltrate Chronic back pain HTN Leukocytosis, ? steroids - off steroids 06/13. better Plan Plan of Care Cont off abx monitor incision and temp Supportive care THALIA MORALES MD Jun 24, 2017 08:13
[2017-06-24] MEDS: FERROUS SULFATE 325 MG TABLET. PO SCH (10:05)
[2017-06-24] MEDS: LACTOBACILLUS RHAMNOSUS GG 1 CAPSULE. PO SCH (10:05)
[2017-06-24] MEDS: DOCUSATE SODIUM 100 MG CAPSULE. PO SCH (10:05)
[2017-06-24] MEDS: POTASSIUM CHLORIDE 20 MEQ TABLET.ER. PO SCH (10:05)
[2017-06-24] MEDS: LISINOPRIL 20 MG TABLET PO SCH (10:06)
[2017-06-24] MEDS: METOPROLOL SUCC 24HR ER 100 MG TAB.ER.24H. PO SCH (10:06)
[2017-06-24] MEDS: hydroCHLOROthiazide 25 MG TABLET PO SCH ×2 (10:06→10:27)
[2017-06-24] MEDS: MAGNESIUM OXIDE 400 MG TABLET PO SCH (10:07)
[2017-06-24] MEDS: KETOROLAC TROMETHAMINE 10 MG TABLET PO SCH ×2 (10:07→14:36)
[2017-06-24] MEDS: CHLORHEXIDINE 0.12% 15 ML MOUTHWASH. SWSP SCH (10:07)
--- NOTE | 2017-06-24 10:07 | PDOC ---
PULMONARY PROGRESS NOTES Subjective no sob, cough, no pain, is tired. Vitals Vital Signs Date Time Temp Pulse Resp B/P (MAP) Pulse Ox O2 Delivery O2 Flow Rate FiO2 06/24/17 07:00 99.1 78 18 141/69 (93) 91 Room Air 99.1 06/24/17 03:00 2.0 ROS: No Nausea, No Chest Pain, No Increase Cough General: Alert HEENT: Neck ROM, Other (nc at perrl ) Lungs: Clear Cardiovascular: S1, S2 Abdomen: Soft, Non-tender, Other Neuro Exam: Alert Extremities: No Edema Skin: Warm Labs Laboratory Tests Test 06/22/17 11:30 06/22/17 16:33 06/22/17 20:55 06/23/17 03:10 Glucose (Fingerstick) 104 mg/dL (70-99) 116 mg/dL (70-99) 128 mg/dL (70-99) White Blood Count 7.7 x10^3/uL (4.0-11.0) Red Blood Count 2.51 x10^6/uL (4.30-5.70) Hemoglobin 7.2 g/dL (13.0-17.5) Hematocrit 21.3 % (39.0-53.0) Mean Corpuscular Volume 85 fL (79-100) Mean Corpuscular Hemoglobin 29 pg (25-35) Mean Corpuscular Hemoglobin Concent 34 g/dL (31-37) Red Cell Distribution Width 13.8 % (11.5-14.5) Platelet Count 420 x10^3/uL (140-400) Neutrophils (%) (Auto) 67 % (31-73) Lymphocytes (%) (Auto) 13 % (24-48) Monocytes (%) (Auto) 15 % (0-9) Eosinophils (%) (Auto) 5 % (0-3) Basophils (%) (Auto) 1 % (0-3) Neutrophils # (Auto) 5.2 x10^3uL (1.8-7.7) Lymphocytes # (Auto) 1.0 x10^3/uL (1.0-4.8) Monocytes # (Auto) 1.1 x10^3/uL (0.0-1.1) Eosinophils # (Auto) 0.4 x10^3/uL (0.0-0.7) Basophils # (Auto) 0.1 x10^3/uL (0.0-0.2) Sodium Level 135 mmol/L (136-145) Potassium Level 3.7 mmol/L (3.5-5.1) Chloride Level 99 mmol/L (98-107) Carbon Dioxide Level 29 mmol/L (21-32) Anion Gap 7 (6-14) Blood Urea Nitrogen 12 mg/dL (8-26) Creatinine 1.0 mg/dL (0.7-1.3) Estimated GFR (Cockcroft-Gault) 74.8 Glucose Level 117 mg/dL (70-99) Calcium Level 9.1 mg/dL (8.5-10.1) Test 06/24/17 07:15 White Blood Count 8.4 x10^3/uL (4.0-11.0) Red Blood Count 2.73 x10^6/uL (4.30-5.70) Hemoglobin 7.8 g/dL (13.0-17.5) Hematocrit 23.2 % (39.0-53.0) Mean Corpuscular Volume 85 fL (79-100) Mean Corpuscular Hemoglobin 29 pg (25-35) Mean Corpuscular Hemoglobin Concent 34 g/dL (31-37) Red Cell Distribution Width 14.4 % (11.5-14.5) Platelet Count 477 x10^3/uL (140-400) Neutrophils (%) (Auto) 73 % (31-73) Lymphocytes (%) (Auto) 11 % (24-48) Monocytes (%) (Auto) 11 % (0-9) Eosinophils (%) (Auto) 5 % (0-3) Basophils (%) (Auto) 1 % (0-3) Neutrophils # (Auto) 6.1 x10^3uL (1.8-7.7) Lymphocytes # (Auto) 0.9 x10^3/uL (1.0-4.8) Monocytes # (Auto) 0.9 x10^3/uL (0.0-1.1) Eosinophils # (Auto) 0.4 x10^3/uL (0.0-0.7) Basophils # (Auto) 0.1 x10^3/uL (0.0-0.2) Laboratory Tests Test 06/24/17 07:15 White Blood Count 8.4 x10^3/uL (4.0-11.0) Red Blood Count 2.73 x10^6/uL (4.30-5.70) Hemoglobin 7.8 g/dL (13.0-17.5) Hematocrit 23.2 % (39.0-53.0) Mean Corpuscular Volume 85 fL (79-100) Mean Corpuscular Hemoglobin 29 pg (25-35) Mean Corpuscular Hemoglobin Concent 34 g/dL (31-37) Red Cell Distribution Width 14.4 % (11.5-14.5) Platelet Count 477 x10^3/uL (140-400) Neutrophils (%) (Auto) 73 % (31-73) Lymphocytes (%) (Auto) 11 % (24-48) Monocytes (%) (Auto) 11 % (0-9) Eosinophils (%) (Auto) 5 % (0-3) Basophils (%) (Auto) 1 % (0-3) Neutrophils # (Auto) 6.1 x10^3uL (1.8-7.7) Lymphocytes # (Auto) 0.9 x10^3/uL (1.0-4.8) Monocytes # (Auto) 0.9 x10^3/uL (0.0-1.1) Eosinophils # (Auto) 0.4 x10^3/uL (0.0-0.7) Basophils # (Auto) 0.1 x10^3/uL (0.0-0.2) Medications Active Scripts Medications Dose Route/Sig Max Daily Dose Days Date Category [prednisone taper] 06/07/17 Reported Metoprolol Succinate ( Xl ) (Metoprolol Succinate) 100 Mg Tab.er.24h 1 Tab PO DAILY 06/07/17 Reported Lisinopril 10 Mg Tablet 1 Tab PO DAILY 06/07/17 Reported Hydrochlorothiazide Tablet (Hydrochlorothiazide) 50 Mg Tablet 25 Tab PO DAILY 06/07/17 Reported Impression . IMPRESSION: 1. Acute respiratory failure, expected status post exploratory laparotomy. 2. Emergent exploratory laparotomy for perforated viscus. 3. History of alcoholism. 4. Hypertension. 5. Hyperlipidemia. 6. Severe protein malnutrition, present upon admission. 7. Hypokalemia. 8. Acute kidney injury. PREOPERATIVE DIAGNOSIS: Perforated viscus. POSTOPERATIVE DIAGNOSIS: Perforated viscus secondary to perforated sigmoid diverticulitis with fecal spillage. PROCEDURES: 1. Exploratory laparotomy. 2. Sigmoid resection with end colostomy, Eufemia's pouch. Plan . RESP STATUS IS COMPENSATED I WILL SIGN OFF POST OP MANAGEMENT CONNIE AVILA MD Jun 24, 2017 10:07
[2017-06-24] MEDS: LIDOCAINE (700MG/PATCH) PATCH. TD SCH (10:08)
[2017-06-24] MEDS: DICLOFENAC SODIUM 1% TOPICAL GEL 100GM TUBE. TP SCH (10:09)
[2017-06-24] MEDS: POTASSIUM PHOSPHATE,MONOBASIC 500 MG TABLET. PO SCH (10:28)
[2017-06-24 11:00] VITALS: BP 129/71
--- NOTE | 2017-06-24 11:21 | PDOC ---
SURGICAL PROGRESS NOTE Subjective wants to get home denies n/v temps yesterday, although he feels discrepancy with different thermometers Vital Signs Vital Signs Date Time Temp Pulse Resp B/P (MAP) Pulse Ox O2 Delivery O2 Flow Rate FiO2 06/24/17 10:06 78 141/69 06/24/17 08:00 Room Air 06/24/17 08:00 16 94 06/24/17 07:00 99.1 99.1 06/24/17 03:00 2.0 General: Alert, Oriented X3, Cooperative, No acute distress Abdomen: Soft, Other (stool, incision without infection ) Labs Laboratory Tests Test 06/22/17 11:30 06/22/17 16:33 06/22/17 20:55 06/23/17 03:10 Glucose (Fingerstick) 104 mg/dL (70-99) 116 mg/dL (70-99) 128 mg/dL (70-99) White Blood Count 7.7 x10^3/uL (4.0-11.0) Red Blood Count 2.51 x10^6/uL (4.30-5.70) Hemoglobin 7.2 g/dL (13.0-17.5) Hematocrit 21.3 % (39.0-53.0) Mean Corpuscular Volume 85 fL (79-100) Mean Corpuscular Hemoglobin 29 pg (25-35) Mean Corpuscular Hemoglobin Concent 34 g/dL (31-37) Red Cell Distribution Width 13.8 % (11.5-14.5) Platelet Count 420 x10^3/uL (140-400) Neutrophils (%) (Auto) 67 % (31-73) Lymphocytes (%) (Auto) 13 % (24-48) Monocytes (%) (Auto) 15 % (0-9) Eosinophils (%) (Auto) 5 % (0-3) Basophils (%) (Auto) 1 % (0-3) Neutrophils # (Auto) 5.2 x10^3uL (1.8-7.7) Lymphocytes # (Auto) 1.0 x10^3/uL (1.0-4.8) Monocytes # (Auto) 1.1 x10^3/uL (0.0-1.1) Eosinophils # (Auto) 0.4 x10^3/uL (0.0-0.7) Basophils # (Auto) 0.1 x10^3/uL (0.0-0.2) Sodium Level 135 mmol/L (136-145) Potassium Level 3.7 mmol/L (3.5-5.1) Chloride Level 99 mmol/L (98-107) Carbon Dioxide Level 29 mmol/L (21-32) Anion Gap 7 (6-14) Blood Urea Nitrogen 12 mg/dL (8-26) Creatinine 1.0 mg/dL (0.7-1.3) Estimated GFR (Cockcroft-Gault) 74.8 Glucose Level 117 mg/dL (70-99) Calcium Level 9.1 mg/dL (8.5-10.1) Test 06/24/17 07:15 White Blood Count 8.4 x10^3/uL (4.0-11.0) Red Blood Count 2.73 x10^6/uL (4.30-5.70) Hemoglobin 7.8 g/dL (13.0-17.5) Hematocrit 23.2 % (39.0-53.0) Mean Corpuscular Volume 85 fL (79-100) Mean Corpuscular Hemoglobin 29 pg (25-35) Mean Corpuscular Hemoglobin Concent 34 g/dL (31-37) Red Cell Distribution Width 14.4 % (11.5-14.5) Platelet Count 477 x10^3/uL (140-400) Neutrophils (%) (Auto) 73 % (31-73) Lymphocytes (%) (Auto) 11 % (24-48) Monocytes (%) (Auto) 11 % (0-9) Eosinophils (%) (Auto) 5 % (0-3) Basophils (%) (Auto) 1 % (0-3) Neutrophils # (Auto) 6.1 x10^3uL (1.8-7.7) Lymphocytes # (Auto) 0.9 x10^3/uL (1.0-4.8) Monocytes # (Auto) 0.9 x10^3/uL (0.0-1.1) Eosinophils # (Auto) 0.4 x10^3/uL (0.0-0.7) Basophils # (Auto) 0.1 x10^3/uL (0.0-0.2) Laboratory Tests Test 06/24/17 07:15 White Blood Count 8.4 x10^3/uL (4.0-11.0) Red Blood Count 2.73 x10^6/uL (4.30-5.70) Hemoglobin 7.8 g/dL (13.0-17.5) Hematocrit 23.2 % (39.0-53.0) Mean Corpuscular Volume 85 fL (79-100) Mean Corpuscular Hemoglobin 29 pg (25-35) Mean Corpuscular Hemoglobin Concent 34 g/dL (31-37) Red Cell Distribution Width 14.4 % (11.5-14.5) Platelet Count 477 x10^3/uL (140-400) Neutrophils (%) (Auto) 73 % (31-73) Lymphocytes (%) (Auto) 11 % (24-48) Monocytes (%) (Auto) 11 % (0-9) Eosinophils (%) (Auto) 5 % (0-3) Basophils (%) (Auto) 1 % (0-3) Neutrophils # (Auto) 6.1 x10^3uL (1.8-7.7) Lymphocytes # (Auto) 0.9 x10^3/uL (1.0-4.8) Monocytes # (Auto) 0.9 x10^3/uL (0.0-1.1) Eosinophils # (Auto) 0.4 x10^3/uL (0.0-0.7) Basophils # (Auto) 0.1 x10^3/uL (0.0-0.2) Problem List Problems Medical Problems: (1) Abdominal pain Status: Acute (2) Elevated brain natriuretic peptide (BNP) level Status: Acute (3) Hypomagnesemia Status: Acute (4) Perforated abdominal viscus Status: Acute Assessment/Plan stable noted fever yesterday, none today Problems: MINA LYNCH APRN Jun 24, 2017 11:21
[2017-06-24] MEDS ORDERED: FERR-26 PO (14:05)
--- NOTE | 2017-06-24 14:15 | PDOC3 ---
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 Final Diagnosis Problems Medical Problems: (1) Abdominal pain Status: Acute (2) Elevated brain natriuretic peptide (BNP) level Status: Acute (3) Hypomagnesemia Status: Acute (4) Perforated abdominal viscus Status: Acute Brief Hospital Course Allergies Allergies Coded Allergies Type Severity Reaction Last Updated Verified No Known Drug Allergies 06/06/17 No Vital Signs Vital Signs Date Time Temp Pulse Resp B/P (MAP) Pulse Ox O2 Delivery O2 Flow Rate FiO2 06/24/17 11:00 99.1 77 18 129/71 (90) 90 Room Air 99.1 06/24/17 03:00 2.0 Lab Results Laboratory Tests Test 06/22/17 16:33 06/22/17 20:55 06/23/17 03:10 06/24/17 07:15 Glucose (Fingerstick) 116 mg/dL (70-99) 128 mg/dL (70-99) White Blood Count 7.7 x10^3/uL (4.0-11.0) 8.4 x10^3/uL (4.0-11.0) Red Blood Count 2.51 x10^6/uL (4.30-5.70) 2.73 x10^6/uL (4.30-5.70) Hemoglobin 7.2 g/dL (13.0-17.5) 7.8 g/dL (13.0-17.5) Hematocrit 21.3 % (39.0-53.0) 23.2 % (39.0-53.0) Mean Corpuscular Volume 85 fL (79-100) 85 fL (79-100) Mean Corpuscular Hemoglobin 29 pg (25-35) 29 pg (25-35) Mean Corpuscular Hemoglobin Concent 34 g/dL (31-37) 34 g/dL (31-37) Red Cell Distribution Width 13.8 % (11.5-14.5) 14.4 % (11.5-14.5) Platelet Count 420 x10^3/uL (140-400) 477 x10^3/uL (140-400) Neutrophils (%) (Auto) 67 % (31-73) 73 % (31-73) Lymphocytes (%) (Auto) 13 % (24-48) 11 % (24-48) Monocytes (%) (Auto) 15 % (0-9) 11 % (0-9) Eosinophils (%) (Auto) 5 % (0-3) 5 % (0-3) Basophils (%) (Auto) 1 % (0-3) 1 % (0-3) Neutrophils # (Auto) 5.2 x10^3uL (1.8-7.7) 6.1 x10^3uL (1.8-7.7) Lymphocytes # (Auto) 1.0 x10^3/uL (1.0-4.8) 0.9 x10^3/uL (1.0-4.8) Monocytes # (Auto) 1.1 x10^3/uL (0.0-1.1) 0.9 x10^3/uL (0.0-1.1) Eosinophils # (Auto) 0.4 x10^3/uL (0.0-0.7) 0.4 x10^3/uL (0.0-0.7) Basophils # (Auto) 0.1 x10^3/uL (0.0-0.2) 0.1 x10^3/uL (0.0-0.2) Sodium Level 135 mmol/L (136-145) Potassium Level 3.7 mmol/L (3.5-5.1) Chloride Level 99 mmol/L (98-107) Carbon Dioxide Level 29 mmol/L (21-32) Anion Gap 7 (6-14) Blood Urea Nitrogen 12 mg/dL (8-26) Creatinine 1.0 mg/dL (0.7-1.3) Estimated GFR (Cockcroft-Gault) 74.8 Glucose Level 117 mg/dL (70-99) Calcium Level 9.1 mg/dL (8.5-10.1) Laboratory Tests Test 06/24/17 07:15 White Blood Count 8.4 x10^3/uL (4.0-11.0) Red Blood Count 2.73 x10^6/uL (4.30-5.70) Hemoglobin 7.8 g/dL (13.0-17.5) Hematocrit 23.2 % (39.0-53.0) Mean Corpuscular Volume 85 fL (79-100) Mean Corpuscular Hemoglobin 29 pg (25-35) Mean Corpuscular Hemoglobin Concent 34 g/dL (31-37) Red Cell Distribution Width 14.4 % (11.5-14.5) Platelet Count 477 x10^3/uL (140-400) Neutrophils (%) (Auto) 73 % (31-73) Lymphocytes (%) (Auto) 11 % (24-48) Monocytes (%) (Auto) 11 % (0-9) Eosinophils (%) (Auto) 5 % (0-3) Basophils (%) (Auto) 1 % (0-3) Neutrophils # (Auto) 6.1 x10^3uL (1.8-7.7) Lymphocytes # (Auto) 0.9 x10^3/uL (1.0-4.8) Monocytes # (Auto) 0.9 x10^3/uL (0.0-1.1) Eosinophils # (Auto) 0.4 x10^3/uL (0.0-0.7) Basophils # (Auto) 0.1 x10^3/uL (0.0-0.2) Brief Hospital Course Mr. Pedro is a 67 old male who stayed 3 mos with us, admitted for sigmoid diverticulitis perf but course got long because of TPN, elyte abN in this heavy etoh ic prior to admit, then developed drug fevers, co managed with ID on tail end, Cards and pulmo was also non board for earlier issues (see dx ab0ve) but all have been resolved and no new cardiac/lung meds, Liked his xanax and narcs but thinks otherwise, HAd some constipation then later soft stools. Can be anxious, opinionated in his care. Long story short, new meds are ferrous sulfate, lidoderm patch and toradol., All 3 home meds lisinopril, Metoprolol and HCTZ to cont Miller to come out since the sx is 06/06. 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
== END 2017-06-24 17:55 | disposition home health service (06) | DRG 853 ==
LOC: ER 07:16 → 5 NORTH 08:33 → 1 WEST ICU 16:34 → 4 NORTH 06-08 15:16
PROVIDERS: ADMIT Internal Medicine; ATTEND Internal Medicine
PROC: 0D1N0Z4 Bypass Sigmoid Colon to Cutaneous, Open Approach (ICD-10-PCS; 2017-06-06)
PROC: 5A1935Z Respiratory Ventilation, Less than 24 Consecutive Hours (ICD-10-PCS; 2017-06-06)
PROC: 0BH17EZ Insertion of Endotracheal Airway into Trachea, Via Natural or Artificial Opening (ICD-10-PCS; 2017-06-06)
PROC: 0DTN0ZZ Resection of Sigmoid Colon, Open Approach (ICD-10-PCS; principal; 2017-06-06 11:15)
DX: A41.9 Sepsis, unspecified organism (principal); E43 Unspecified severe protein-calorie malnutrition; J96.00 Acute respiratory failure, unspecified whether with hypoxia or hypercapnia; N17.0 Acute kidney failure with tubular necrosis; I48.91 Unspecified atrial fibrillation; K57.20 Diverticulitis of large intestine with perforation and abscess without bleeding; K66.8 Other specified disorders of peritoneum; E83.39 Other disorders of phosphorus metabolism; E83.42 Hypomagnesemia; D50.9 Iron deficiency anemia, unspecified; E78.5 Hyperlipidemia, unspecified; E86.0 Dehydration; E87.6 Hypokalemia; F10.20 Alcohol dependence, uncomplicated; F17.210 Nicotine dependence, cigarettes, uncomplicated; F42.9 Obsessive-compulsive disorder, unspecified; G89.29 Other chronic pain; I10 Essential (primary) hypertension; K31.89 Other diseases of stomach and duodenum; K59.00 Constipation, unspecified; M54.30 Sciatica, unspecified side; Z82.49 Family history of ischemic heart disease and other diseases of the circulatory system; Z68.23 Body mass index [BMI] 23.0-23.9, adult
CPT/HCPCS: 36415; 36569; 36600; 71010; 71020; 74000; 74177; 80048; 80053; 80061; 80202; 80307; 81001; 82040; 82274; 82550; 82607; 82728; 82746; 82805; 82962; 83540; 83550; 83690; 83735; 83880; 84100; 84132; 84443; 84478; 84484; 85007; 85025; 85610; 85730; 87040; 87071; 87075; 87186; 87205; 88307; 90686; 90732; 93005; 93306; 94002; 94003; 96374; 96375; G0238; G0480; J0330; J0610; J0696; J1100; J1170; J1450; J1650; J1956; J2185; J2270; J2405; J2704; J2710; J2930; J3010; J3370; J3475; J3480; J3490; J7030; J7060; J7120; J7512; P9046; Q9967; S0028; 97116; 97530; 97535; 99291-25; G0479; J2001

== ENCOUNTER → 2017-08-08 | Outpatient (CLI) | payer MEDICARE ==
[~2017-08-08] MED LIST changes: +FERR-26 PO
--- NOTE | 2017-08-09 08:26 | KCIC ---
EXAMINATION: Magnetic resonance imaging (MRI) of the lumbar spine without contrast HISTORY: Left-sided sciatica. TECHNIQUE: Multiplanar multi-weighted MRI of the lumbar spine was performed without intravenous contrast using the standard lumbar spine protocol. Contrast information: None administered COMPARISON: None available. FINDINGS: There is minimal retrolisthesis of L4 on L5 and L5-S1. Vertebral bodies demonstrate normal signal intensity on all sequences. There are no compression fractures. The conus medullaris terminates at the level of L1. The distal spinal cord signal intensity is normal. There is disc desiccation at L2-L3, L3-L4, L4-L5 and L5-S1. Annular fissures are identified at L4-L5 and L5-S1. There are simple appearing bilateral renal parapelvic cysts. The aorta is normal. L2-L3: There is mild circumferential disc bulge. There is mild facet arthropathy. There is mild neuroforaminal stenosis. There is no spinal canal stenosis. L3-L4: There is a mild circumferential disc bulge. There is mild/moderate facet arthropathy. There is mild left neuroforaminal stenosis. There is mild spinal canal stenosis. L4-L5: There is a left central disc extrusion resulting in left lateral recess stenosis, likely affecting the traversing L5 nerve. There is moderate facet arthropathy. There is moderate neuroforaminal stenosis. There is moderate spinal canal stenosis. L5-S1: There is a right central disc protrusion. There is moderate facet arthropathy. There is moderate to severe left and [id number] right neuroforaminal stenosis. There is no spinal canal stenosis. IMPRESSION: 1. There is minimal retrolisthesis of L4 on L5 and L5 on S1. 2. There is a left central disc extrusion at L4-L5 resulting in left lateral recess stenosis, likely affecting the traversing left L5 nerve. There is moderate neuroforaminal stenosis and moderate spinal canal stenosis at this level. 3. There is a right central disc protrusion at L5-S1 with moderate facet arthropathy. Findings result in moderate to severe left neuroforaminal stenosis. No spinal canal stenosis. Electronically signed by: Li Boggs MD (08/09/2017 8:22 AM) [email or web address]
== END | disposition home or self-care (01) ==
LOC: KCIC MRI 16:25
PROVIDERS: ATTEND Family Medicine
DX: M54.42 Lumbago with sciatica, left side (principal); M48.061 Spinal stenosis, lumbar region without neurogenic claudication; M51.27 Other intervertebral disc displacement, lumbosacral region; M51.26 Other intervertebral disc displacement, lumbar region
CPT/HCPCS: 72148

== ENCOUNTER → 2017-09-15 | Outpatient (CLI) | payer MEDICARE ==
[2017-09-15 15:22] LABS: ADD MAN DIFF? NO
[2017-09-15 15:26] LABS: BASO # 0.1 x10^3/uL (0.0-0.2); BASO % 1 % (0-3); EOS # 0.4 x10^3/uL (0.0-0.7); EOS % 7 % (0-3); HEMATOCRIT 37.1 % (39.0-53.0); HEMOGLOBIN 12.3 g/dL (13.0-17.5); LYMPH # 1.3 x10^3/uL (1.0-4.8); LYMPH % 25 % (24-48); MEAN CORPUSCULAR HEMOGLOBIN 28 pg (25-35); MEAN CORPUSCULAR HGB CONC 33 g/dL (31-37); MEAN CORPUSCULAR VOLUME 84 fL (79-100); MONO # 0.7 x10^3/uL (0.0-1.1); MONO % 14 % (0-9); NEUT # 2.7 x10^3uL (1.8-7.7); NEUT % 53 % (31-73); PLATELET COUNT 262 x10^3/uL (140-400); RED BLOOD COUNT 4.42 x10^6/uL (4.30-5.70); RED CELL DISTRIBUTION WIDTH 16.3 % (11.5-14.5); WHITE BLOOD COUNT 5.1 x10^3/uL (4.0-11.0)
[2017-09-15 15:34] LABS: ALBUMIN 3.6 g/dL (3.4-5.0); ANION GAP 7 (6-14); BLOOD UREA NITROGEN 21 mg/dL (8-26); CALCIUM 9.1 mg/dL (8.5-10.1); CARBON DIOXIDE 31 mmol/L (21-32); CHLORIDE 103 mmol/L (98-107); CREATININE 0.9 mg/dL (0.7-1.3); GFR 84.4; GLUCOSE 98 mg/dL (70-99); POTASSIUM 4.1 mmol/L (3.5-5.1); SODIUM 141 mmol/L (136-145)
== END | disposition home or self-care (01) ==
LOC: SURGPAT 14:51
DX: Z01.818 Encounter for other preprocedural examination (principal)
CPT/HCPCS: 36415; 80048; 82040; 85025

== ENCOUNTER → 2017-09-15 | Outpatient (CLI) | payer MEDICARE | END | disposition home or self-care (01) | LOC: PNCL 07:45 | DX: M48.061 Spinal stenosis, lumbar region without neurogenic claudication (principal); I10 Essential (primary) hypertension; E78.5 Hyperlipidemia, unspecified; Z87.891 Personal history of nicotine dependence; Z98.890 Other specified postprocedural states | CPT/HCPCS: G0463 ==

== ENCOUNTER → 2017-09-20 | Day surgery (SDC) | payer MEDICARE ==
[~2017-09-20] MED LIST changes: -FERR-26 PO; -HYDR50TA6 PO; +HYDROmorphone 2 MG/ML VIAL IV; +LIDOCAINE 1% PF 2 ML VIAL. ID; +LIDOCAINE 2% 100 MG/5 ML SYRINGE.; -LISI10TA2 PO; -METO-247 PO; +MORPHINE SULFATE 2 MG/ML DISP.SYRIN. IV; +ONDANSETRON PF 4 MG/2 ML VIAL. IV; +PROCHLORPERAZINE 10 MG/2 ML VIAL. IV; +PROPOFOL 40 ML IV; +fentaNYL PF VIAL 100 MCG/2 ML VIAL IV; -prednisone taper
[2017-09-20] MEDS: IV RINGERS,LACTATED 1000ML 1,000 ML IV (15:41)
== END | disposition home or self-care (01) ==
LOC: ENDOS 14:54
DX: Z09 Encounter for follow-up examination after completed treatment for conditions other than malignant neoplasm (principal); Z86.010 Personal history of colon polyps; K64.0 First degree hemorrhoids; Z98.890 Other specified postprocedural states; E78.00 Pure hypercholesterolemia, unspecified; I10 Essential (primary) hypertension; F17.200 Nicotine dependence, unspecified, uncomplicated; Z87.39 Personal history of other diseases of the musculoskeletal system and connective tissue
CPT/HCPCS: 45378; J2704

== ENCOUNTER 2017-09-21 10:32 | Inpatient (IN) | payer MEDICARE ==
[2017-09-21] MEDS ORDERED: BUPIVACAINE-EPI 0.25%-1:200000 50 ML VIAL. (10:40)
[2017-09-21] MEDS ORDERED: GELATIN SPONGE SIZE 100. (10:40)
[2017-09-21] MEDS ORDERED: DESFLURANE > 120 MINUTES IH (11:50)
[2017-09-21] MEDS ORDERED: PROPOFOL 20 ML IV (11:50)
[2017-09-21] MEDS ORDERED: fentaNYL PF VIAL 100 MCG/2 ML VIAL ×2 (11:51→13:24)
[2017-09-21] MEDS ORDERED: MIDAZOLAM HCL/PF 2 MG/2 ML VIAL. (11:51)
[2017-09-21] MEDS ORDERED: ROCURONIUM 100 MG/10 ML VIAL. (11:51)
[2017-09-21] MEDS ORDERED: LIDOCAINE 1% PF 5 ML VIAL. (11:59)
[2017-09-21] MEDS ORDERED: PHENYLEPHRINE in 0.9% NACL PF 1 MG/10 ML SYRINGE. IV (12:12)
[2017-09-21] MEDS ORDERED: ALBUMIN HUMAN 5% 500 ML IV (12:38)
[2017-09-21] MEDS ORDERED: ePHEDrine PF IN SALINE 50 MG/5 ML DISP.SYRIN IV (12:56)
[2017-09-21] MEDS ORDERED: ROPIVacaine 0.5% PF 30 ML VIAL. (13:23)
[2017-09-21] MEDS ORDERED: GLYCOPYRROLATE 1 MG/5 ML VIAL. (14:16)
[2017-09-21] MEDS ORDERED: NEOSTIGMINE METHYLSULFATE 5 MG/5 ML SYRINGE. (14:16)
[2017-09-21] MEDS ORDERED: ONDANSETRON PF 4 MG/2 ML VIAL. (14:17)
[2017-09-21] MEDS ORDERED: 0.9 % SODIUM CHLORIDE 10 ML DISP.SYRIN. IV (16:15)
[2017-09-21] MEDS ORDERED: diphenhydrAMINE 50 MG/ML VIAL IV (16:15)
[2017-09-21] MEDS: IV NORMAL SALINE 50ML 36.7 ML, fentaNYL PF VIAL 250 MCG, BUPIVACAINE MPF 0.75% 8.34 ML ... EP ×2 (16:30→21:48)
[2017-09-21] MEDS ORDERED: hydrALAZINE 20 MG/ML VIAL. IVP (16:45)
[2017-09-21] MEDS: POTASSIUM CL 20MEQ-0.45% NACL 1,000 ML IV (20:34)
[2017-09-21] MEDS: SALIVA STIMULANT AGENT 44ML SPRAY BOTTLE. PO (21:48)
[2017-09-21] MEDS: PHENOL ORAL SPRAY 177ML BOTTLE. PO (21:48)
[2017-09-22] MEDS: IV NORMAL SALINE 50ML 36.7 ML, fentaNYL PF VIAL 250 MCG, BUPIVACAINE MPF 0.75% 8.34 ML ... EP ×4 (03:42→21:43)
[2017-09-22 05:29] LABS: ADD MAN DIFF? NO
[2017-09-22 05:45] LABS: BASO % 0 % (0-3); EOS % 0 % (0-3); HEMATOCRIT 33.9 % (39.0-53.0); LYMPH # 0.7 x10^3/uL (1.0-4.8); LYMPH % 7 % (24-48); MEAN CORPUSCULAR HEMOGLOBIN 27 pg (25-35); MEAN CORPUSCULAR HGB CONC 33 g/dL (31-37); MEAN CORPUSCULAR VOLUME 83 fL (79-100); MONO % 9 % (0-9); NEUT # 9.1 x10^3uL (1.8-7.7); NEUT % 84 % (31-73); PLATELET COUNT 211 x10^3/uL (140-400); RED BLOOD COUNT 4.11 x10^6/uL (4.30-5.70); RED CELL DISTRIBUTION WIDTH 15.6 % (11.5-14.5); WHITE BLOOD COUNT 10.8 x10^3/uL (4.0-11.0)
[2017-09-22 06:09] LABS: ANION GAP 6 (6-14); BLOOD UREA NITROGEN 15 mg/dL (8-26); CALCIUM 8.3 mg/dL (8.5-10.1); CARBON DIOXIDE 29 mmol/L (21-32); CHLORIDE 102 mmol/L (98-107); CREATININE 0.8 mg/dL (0.7-1.3); GFR 96.7; GLUCOSE 132 mg/dL (70-99); POTASSIUM 3.9 mmol/L (3.5-5.1); SODIUM 137 mmol/L (136-145)
[2017-09-22] MEDS: POTASSIUM CL 20MEQ-0.45% NACL 1,000 ML IV ×3 (09:54→20:13)
[2017-09-23] MEDS: IV NORMAL SALINE 50ML 36.7 ML, fentaNYL PF VIAL 250 MCG, BUPIVACAINE MPF 0.75% 8.34 ML ... EP ×4 (03:30→20:35)
[2017-09-23] MEDS: POTASSIUM CL 20MEQ-0.45% NACL 1,000 ML IV ×2 (08:55→18:35)
[2017-09-23] MEDS: LISINOPRIL 20 MG TABLET PO (12:00)
[2017-09-23] MEDS: METOPROLOL SUCC 24HR ER 50 MG TAB.ER.24H. PO (12:00)
[2017-09-23] MEDS: hydroCHLOROthiazide 25 MG TABLET PO (12:00)
[2017-09-23] MEDS: ATORVASTATIN CALCIUM 20 MG TABLET PO (20:41)
[2017-09-24] MEDS: IV NORMAL SALINE 50ML 36.7 ML, fentaNYL PF VIAL 250 MCG, BUPIVACAINE MPF 0.75% 8.34 ML ... EP ×2 (01:31→07:57)
[2017-09-24] MEDS: POTASSIUM CL 20MEQ-0.45% NACL 1,000 ML IV ×2 (04:07→10:29)
[2017-09-24] MEDS: LISINOPRIL 20 MG TABLET PO (09:00)
[2017-09-24] MEDS: METOPROLOL SUCC 24HR ER 50 MG TAB.ER.24H. PO ×2 (09:00→10:27)
[2017-09-24] MEDS: hydroCHLOROthiazide 25 MG TABLET PO (09:00)
[2017-09-24] MEDS ORDERED: oxyCODONE/APAP 5/325 1 TAB TABLET PO ×2 (10:15)
[2017-09-24] MEDS: oxyCODONE/APAP 5/325 1 TAB TABLET PO ×3 (10:25→19:49)
[2017-09-24] MEDS: LIDOCAINE 2% JELLY 6ML IN APPLICATOR. MM (11:43)
[2017-09-24] MEDS ORDERED: DOCUSATE SODIUM 100 MG CAPSULE. PO (17:00)
[2017-09-24] MEDS: ATORVASTATIN CALCIUM 20 MG TABLET PO (19:49)
[2017-09-24] MEDS: ONDANSETRON PF 4 MG/2 ML VIAL. IV (22:54)
[2017-09-24] MEDS: HYDROmorphone 2 MG/ML VIAL IV (22:56)
[2017-09-25] MEDS: POTASSIUM CL 20MEQ-0.45% NACL 1,000 ML IV ×3 (00:07→20:07)
[2017-09-25] MEDS: oxyCODONE/APAP 5/325 1 TAB TABLET PO ×2 (00:39→05:27)
[2017-09-25] MEDS: HYDROmorphone 2 MG/ML VIAL IV (08:17)
[2017-09-25] MEDS: ONDANSETRON PF 4 MG/2 ML VIAL. IV (08:19)
[2017-09-25] MEDS: LISINOPRIL 20 MG TABLET PO (09:00)
[2017-09-25] MEDS: METOPROLOL SUCC 24HR ER 50 MG TAB.ER.24H. PO (09:00)
[2017-09-25] MEDS: hydroCHLOROthiazide 25 MG TABLET PO (09:00)
[2017-09-25] MEDS ORDERED: NALOXONE 0.4 MG/ML VIAL. IV (09:15)
[2017-09-25] MEDS: ATORVASTATIN CALCIUM 20 MG TABLET PO (21:00)
[2017-09-26] MEDS: POTASSIUM CL 20MEQ-0.45% NACL 1,000 ML IV ×2 (06:07→11:57)
[2017-09-26] MEDS: METOPROLOL SUCC 24HR ER 50 MG TAB.ER.24H. PO (09:04)
[2017-09-26] MEDS: hydroCHLOROthiazide 25 MG TABLET PO (09:04)
[2017-09-26] MEDS: LISINOPRIL 20 MG TABLET PO (09:04)
[2017-09-26] MEDS: ENOXAPARIN 40 MG/0.4 ML SYRINGE. SQ (11:57)
[2017-09-26] MEDS: ATORVASTATIN CALCIUM 20 MG TABLET PO (20:51)
[2017-09-27] MEDS: POTASSIUM CL 20MEQ-0.45% NACL 1,000 ML IV ×3 (00:05→18:43)
[2017-09-27] MEDS: hydroCHLOROthiazide 25 MG TABLET PO (09:04)
[2017-09-27] MEDS: LISINOPRIL 20 MG TABLET PO (09:05)
[2017-09-27] MEDS: METOPROLOL SUCC 24HR ER 50 MG TAB.ER.24H. PO (09:05)
[2017-09-27] MEDS: ENOXAPARIN 40 MG/0.4 ML SYRINGE. SQ ×2 (09:08→17:11)
[2017-09-27 09:39] LABS: ADD MAN DIFF? NO
[2017-09-27 09:43] LABS: BASO % 0 % (0-3); EOS # 0.8 x10^3/uL (0.0-0.7); EOS % 11 % (0-3); HEMATOCRIT 35.6 % (39.0-53.0); HEMOGLOBIN 11.4 g/dL (13.0-17.5); LYMPH # 0.6 x10^3/uL (1.0-4.8); LYMPH % 8 % (24-48); MEAN CORPUSCULAR HEMOGLOBIN 27 pg (25-35); MEAN CORPUSCULAR HGB CONC 32 g/dL (31-37); MEAN CORPUSCULAR VOLUME 85 fL (79-100); MONO # 0.8 x10^3/uL (0.0-1.1); MONO % 12 % (0-9); NEUT # 5.1 x10^3uL (1.8-7.7); NEUT % 70 % (31-73); PLATELET COUNT 316 x10^3/uL (140-400); RED BLOOD COUNT 4.22 x10^6/uL (4.30-5.70); RED CELL DISTRIBUTION WIDTH 14.5 % (11.5-14.5); WHITE BLOOD COUNT 7.3 x10^3/uL (4.0-11.0)
[2017-09-27 10:00] LABS: ANION GAP 4 (6-14); BLOOD UREA NITROGEN 6 mg/dL (8-26); CALCIUM 8.7 mg/dL (8.5-10.1); CARBON DIOXIDE 32 mmol/L (21-32); CHLORIDE 98 mmol/L (98-107); CREATININE 0.7 mg/dL (0.7-1.3); GFR 112.8; GLUCOSE 111 mg/dL (70-99); POTASSIUM 3.6 mmol/L (3.5-5.1); SODIUM 134 mmol/L (136-145)
[2017-09-27] MEDS: ATORVASTATIN CALCIUM 20 MG TABLET PO (21:58)
[2017-09-28] MEDS: POTASSIUM CL 20MEQ-0.45% NACL 1,000 ML IV ×2 (02:35→11:56)
[2017-09-28] MEDS: LISINOPRIL 20 MG TABLET PO (08:10)
[2017-09-28] MEDS: hydroCHLOROthiazide 25 MG TABLET PO (08:10)
[2017-09-28] MEDS: METOPROLOL SUCC 24HR ER 50 MG TAB.ER.24H. PO (08:11)
[2017-09-28] MEDS: ENOXAPARIN 40 MG/0.4 ML SYRINGE. SQ (17:47)
[2017-09-28] MEDS: ATORVASTATIN CALCIUM 20 MG TABLET PO (20:34)
[2017-09-29] MEDS: POTASSIUM CL 20MEQ-0.45% NACL 1,000 ML IV (07:00)
[2017-09-29] MEDS: LISINOPRIL 20 MG TABLET PO (08:12)
[2017-09-29] MEDS: METOPROLOL SUCC 24HR ER 50 MG TAB.ER.24H. PO (08:12)
[2017-09-29] MEDS: oxyCODONE/APAP 5/325 1 TAB TABLET PO ×5 (08:12→22:16)
[2017-09-29] MEDS: hydroCHLOROthiazide 25 MG TABLET PO (08:17)
[2017-09-29] MEDS: SODIUM HYPOCHLORITE 0.125% 473 ML BOTTLE. TP ×2 (13:00→21:32)
[2017-09-29] MEDS: BENZOCAINE/MENTHOL LOZENGE. PO (18:14)
[2017-09-29] MEDS: ENOXAPARIN 40 MG/0.4 ML SYRINGE. SQ (18:16)
[2017-09-29] MEDS: ATORVASTATIN CALCIUM 20 MG TABLET PO (21:26)
[2017-09-30] MEDS: oxyCODONE/APAP 5/325 1 TAB TABLET PO ×5 (05:20→21:16)
[2017-09-30] MEDS: hydroCHLOROthiazide 25 MG TABLET PO (07:49)
[2017-09-30] MEDS: LISINOPRIL 20 MG TABLET PO (07:49)
[2017-09-30] MEDS: METOPROLOL SUCC 24HR ER 50 MG TAB.ER.24H. PO (07:49)
[2017-09-30] MEDS: POTASSIUM CL 20MEQ-0.45% NACL 1,000 ML IV ×2 (09:34→21:18)
[2017-09-30] MEDS: SODIUM HYPOCHLORITE 0.125% 473 ML BOTTLE. TP ×2 (09:35→19:42)
[2017-09-30] MEDS: ENOXAPARIN 40 MG/0.4 ML SYRINGE. SQ (16:42)
[2017-09-30] MEDS: ATORVASTATIN CALCIUM 20 MG TABLET PO (21:15)
[2017-10-01] MEDS: oxyCODONE/APAP 5/325 1 TAB TABLET PO ×5 (01:46→20:55)
[2017-10-01] MEDS: METOPROLOL SUCC 24HR ER 50 MG TAB.ER.24H. PO (09:00)
[2017-10-01] MEDS: LISINOPRIL 20 MG TABLET PO (09:00)
[2017-10-01] MEDS: SODIUM HYPOCHLORITE 0.125% 473 ML BOTTLE. TP ×2 (09:00→20:57)
[2017-10-01] MEDS: hydroCHLOROthiazide 25 MG TABLET PO (09:00)
[2017-10-01] MEDS: CALCIUM CARBONATE 500 MG TAB.CHEW PO (18:03)
[2017-10-01] MEDS: ENOXAPARIN 40 MG/0.4 ML SYRINGE. SQ (18:03)
[2017-10-01] MEDS: ATORVASTATIN CALCIUM 20 MG TABLET PO (20:54)
[2017-10-01] MEDS: POTASSIUM CL 20MEQ-0.45% NACL 1,000 ML IV (20:54)
[2017-10-02] MEDS: oxyCODONE/APAP 5/325 1 TAB TABLET PO ×3 (00:53→13:15)
[2017-10-02] MEDS: SODIUM HYPOCHLORITE 0.125% 473 ML BOTTLE. TP (09:00)
[2017-10-02] MEDS: METOPROLOL SUCC 24HR ER 50 MG TAB.ER.24H. PO (09:26)
[2017-10-02] MEDS: LISINOPRIL 20 MG TABLET PO (09:26)
[2017-10-02] MEDS: hydroCHLOROthiazide 25 MG TABLET PO (09:26)
== END 2017-10-02 15:30 | disposition home health service (06) | DRG 330 ==
LOC: OPSVCIP 10:32 → 4 NORTH 17:30
PROC: 0WUF0JZ Supplement Abdominal Wall with Synthetic Substitute, Open Approach (ICD-10-PCS; principal; 2017-09-21 11:53)
PROC: 0DBN0ZZ Excision of Sigmoid Colon, Open Approach (ICD-10-PCS; 2017-09-21 11:53)
PROC: 0DJD8ZZ Inspection of Lower Intestinal Tract, Via Natural or Artificial Opening Endoscopic (ICD-10-PCS; 2017-09-21 11:53)
PROC: 0DSN0ZZ Reposition Sigmoid Colon, Open Approach (ICD-10-PCS; 2017-09-21 11:53)
DX: K57.80 Diverticulitis of intestine, part unspecified, with perforation and abscess without bleeding (principal); K43.2 Incisional hernia without obstruction or gangrene; K66.0 Peritoneal adhesions (postprocedural) (postinfection); Z93.3 Colostomy status
CPT/HCPCS: 36415; 74018; 80048; 85025; 86850; 86900; 86901; 87071; 87075; 87186; 87205; 88304; 97116-GP; 97161-GP; 97166-GO; 97530-GO; 97530-GP; 97535-GO; C1769; C1781; J0694; J1170; J1650; J2250; J2370; J2405; J2704; J2710; J2795; J3010; J3490; J7120; P9045

== ENCOUNTER → 2017-10-28 | Outpatient (CLI) | payer MEDICARE ==
[~2017-10-28] MED LIST changes: +CONTRAST GIVEN MC; -HYDROmorphone 2 MG/ML VIAL IV; -LIDOCAINE 1% PF 2 ML VIAL. ID; -LIDOCAINE 2% 100 MG/5 ML SYRINGE.; -MORPHINE SULFATE 2 MG/ML DISP.SYRIN. IV; -ONDANSETRON PF 4 MG/2 ML VIAL. IV; -PROCHLORPERAZINE 10 MG/2 ML VIAL. IV; -PROPOFOL 40 ML IV; -fentaNYL PF VIAL 100 MCG/2 ML VIAL IV
[2017-10-28] MEDS: IOHEXOL 300 MG/ML 100ML VIAL. IV (14:15)
[2017-10-28] MEDS: IOHEXOL 240 MG/ML 50ML VIAL. PO (15:16)
== END | disposition home or self-care (01) ==
LOC: CT 13:51
DX: K57.30 Diverticulosis of large intestine without perforation or abscess without bleeding (principal); K82.8 Other specified diseases of gallbladder; I70.0 Atherosclerosis of aorta
CPT/HCPCS: 74177; Q9966; Q9967

== ENCOUNTER → 2018-06-15 | Outpatient (CLI) | payer MEDICARE ==
[2017-10-02 11:00] VITALS: BP 119/74
[~2018-06-15] MED LIST changes: +ATOR20TA58 PO; -CONTRAST GIVEN MC; +FERR325T14 PO; +HYDR12.58 PO; +HYDR50TA6 PO; +IBUP-1027 PO; +IBUP100O25 PO; +LISI-334 PO; +LISI10TA2 PO; +METO-239 PO; +METO-247 PO; +OXYC-323 PO; +prednisone taper
--- NOTE | 2018-06-15 21:05 | PAIN ---
DATE OF SERVICE: 06/15/2018 PROGRESS NOTE FOR PAIN CLINIC DIAGNOSIS: Lumbar radiculopathy with lumbar degenerative disk disease. HISTORY OF PRESENT ILLNESS: The patient is a 68-year-old male who returns for followup status post initial evaluation 09/15/2017. The patient had a recent colostomy takedown and is feeling much better, but he has been getting more active with some pain recurring in the low back and left lower extremity. The patient reports it is worse with certain activities, although it cannot usually predict, but they will be sometimes standing, walking and change in positions. He was pulling a garden hose with some force the other day and that caused a flare up for about 3 days. The patient reports the pain across the low back, in the left posterior hip, posterior lateral thigh, lateral and posterior knee and into the calf as well as the lateral aspect of the thigh and anterior thigh. The patient reports it is a 4 on a scale of 10 at its worst, currently 2 on average and a 0 at its least and is a 2 today. The patient reports it is sharp, cramping can be unbearable at times but again today, he is feeling fairly well, does not flare up with all activities, just certain once. The patient reports no new motor or sensory deficits and does not bother him when he is lying or sleeping, does not awaken him from sleep, worse with certain activities, usually when he is on his feet. The patient reports no new motor or sensory deficits and no bowel or bladder incontinence or other complaints. PHYSICAL EXAMINATION: VITAL SIGNS: The patient's blood pressure 133/75, pulse 50, respirations 18 and temperature 98.1 degrees Fahrenheit. Height 6 feet and weight is 170 pounds. GENERAL: The patient is awake, alert, oriented, appropriate and very pleasant demeanor. HEENT: Head shows normocephalic and atraumatic. Extraocular movements are intact and symmetrical. Oral cavity, mucous membranes are moist and pink. Dentition is intact NECK: Shows anterior throat supple with palpable lymphadenopathy noted. Swallow reflex symmetrical. CHEST: Shows normal on inspection. Breath sounds clear to auscultation bilaterally. HEART: Shows S1 and S2 clear. No murmurs auscultated. ABDOMEN: Soft, nontender and nondistended. No palpable organomegaly is noted. No rebound or guarding demonstrated. BACK: Shows spine grossly in the midline. Normal appearing thoracic kyphosis and lumbar lordotic curvature. Lumbar paraspinous muscle shows symmetrical on inspection. On palpation shows some only very mild tenderness in the middle and lower distribution of the paraspinous muscles but is symmetrical without evidence of atrophy or hypertrophy. No trigger points and no radiation. The patient has full rotational motion both laterally as well as extension and flexion of the lumbar spine without difficulty. EXTREMITIES: The patient's lower extremities show deep tendon reflexes 2+ in the patellar, 1+ tendo-calcaneus tendons are equal. Motor exam is strong with 5/5 dorsiflexion, extension, quadriceps and hamstring flexion symmetrical. Peripheral pulses are 1+ posterior tibia. No peripheral edema is noted bilaterally. Options were discussed with the patient. The patient's old chart was reviewed as well as his current medication regimen updated. Current review of systems updated today as well and we will hold on any injections at this time. He would like to follow most conservative treatment path. We will instructions as well as side effects to be aware of discussed. The patient will follow up after the Medrol Dosepak and if the pain returns or not doing as well, we will plan on lumbar epidural steroid injection at that time. The patient was given instructions as well as side effects to be aware of with medication and will follow up as scheduled. TERI SMITH MD DR: ANDREE/bigg JOB#: [id number] / [id number]
== END | disposition home or self-care (01) ==
LOC: PNCL 08:32
PROVIDERS: ATTEND Anesthesiology
DX: M51.16 Intervertebral disc disorders with radiculopathy, lumbar region (principal)
CPT/HCPCS: G0463

== ENCOUNTER → 2019-05-25 | Outpatient (CLI) | payer MEDICARE ==
[2017-10-02 11:00] VITALS: BP 119/74
[~2019-05-25] MED LIST changes: +IOHEXOL 180 MG/ML 10 ML VIAL. ONE; -OXYC-323 PO; +OXYC1TAB15 PO; +methylPREDNISolone ACETATE 40 MG/ML VIAL. ONE; +methylPREDNISolone ACETATE 80 MG/ML VIAL. ONE
--- NOTE | 2019-05-25 11:14 | PAIN ---
DATE OF SERVICE: 05/25/2019 PROGRESS NOTE FOR PAIN CLINIC DIAGNOSES: Lumbar radiculopathy with lumbar degenerative disk disease and lumbar spinal stenosis. HISTORY OF PRESENT ILLNESS: The patient is a 69-year-old male who returns for followup status post previous evaluation, last seen 06/15/2018. The patient was doing much better at that time and the pain was very minimal. The patient reports that since that time, it has returned in the low back and more pronounced on the right lower extremity on the posterior gluteus, posterolateral thigh, lateral anterior thigh, medial thigh and into the calves bilaterally with some numbness and tingling especially at night. The patient reports the pain is a 5 on a scale of 10 at its worst over the past week, 3 on average, 0 at its least and is a 3 today. The patient reports sharp, tingling, cramping, becoming radiating, constant, severe at times, tight and shooting in the back as well. The patient reports no new motor or sensory deficits, no new bowel or bladder incontinence or other complaints. PHYSICAL EXAMINATION: VITAL SIGNS: The patient's blood pressure is 176/106, pulse 51, respirations are 18, temperature is 98.4 degrees Fahrenheit, height is 6 feet, weight is 168 pounds. GENERAL: The patient is awake, alert, oriented, appropriate, very pleasant demeanor. HEENT: Head shows normocephalic, atraumatic. Extraocular movements are intact and symmetrical. Oral cavity: Mucous membranes are moist and pink. Dentition is intact. NECK: Shows anterior throat supple without palpable lymphadenopathy noted. Swallow reflex symmetrical. CHEST: Shows normal on inspection. Breath sounds clear to auscultation bilaterally. HEART: Shows S1, S2 clear. No murmurs auscultated. ABDOMEN: Shows a well-healed surgical scarring, nontender, nondistended. No palpable organomegaly is noted. BACK: Shows spine grossly in the midline. Normal appearing thoracic kyphosis, some minor flattening of lumbar lordotic curvature. Lumbar paraspinous muscle shows symmetrical on inspection, with palpation shows some very mild tenderness in the low lumbar distribution only without radiation, no trigger points, no asymmetry. The patient has good rotational motion of lumbar spine, both laterally as well as extension and flexion without difficulty. EXTREMITIES: The patient's lower extremities show deep tendon reflexes at 2+ in the patellar, 1+ tendo-calcaneus tendons. Motor exam is strong with 5/5 dorsiflexion, extension, quadriceps and hamstring flexion and are symmetrical. Peripheral pulses are 1+ posterior tibia. No peripheral edema is noted bilaterally. Options were discussed with the patient. The patient's old chart was reviewed as his current medication regimen updated. Current review of systems updated today as well. We will proceed with a lumbar epidural steroid injection today with fluoroscopic guidance. Risks were discussed including but not limited to bleeding, infection, possibility of epidural hematoma, subsequent neurological compromise, dural puncture, headaches, spinal cord and/or nerve damage, side effects of steroid medication and poor results regarding pain control. The patient understands and wished to proceed. The patient will return to clinic in approximately 2 weeks for followup. He was counseled on return appointment, activity level, and side effects to be aware of. DIAGNOSES: Lumbar radiculopathy with lumbar degenerative disk disease and lumbar spinal stenosis. PROCEDURE: Lumbar epidural steroid injection, translaminar approach at the L4-L5 level using C-arm fluoroscopic guidance under sterile prep and drape using local anesthetic. MEDICATION INJECTED: A total of 120 mg Depo-Medrol plus 10 mL of preservative-free normal saline and 2 mL of contrast. CONDITION AT DISCHARGE: Stable. The patient tolerated the procedure well, had no complications. TERI SMITH MD DR: ANDREE/bigg JOB#: [id number] / [id number]
== END ==
LOC: PNCL 09:33
PROVIDERS: ATTEND Anesthesiology
DX: M51.16 Intervertebral disc disorders with radiculopathy, lumbar region (principal); M48.061 Spinal stenosis, lumbar region without neurogenic claudication
CPT/HCPCS: 62323; J1030; J1040; Q9965

== ENCOUNTER → 2019-06-25 | Outpatient (CLI) | payer MEDICARE ==
[2017-10-02 11:00] VITALS: BP 119/74
--- NOTE | 2019-06-25 13:08 | PAIN ---
DATE OF SERVICE: 06/25/2019 PROGRESS NOTE FOR PAIN CLINIC DIAGNOSIS: Lumbar radiculopathy with lumbar degenerative disk disease, lumbar spinal stenosis. HISTORY OF PRESENT ILLNESS: The patient is a 69-year-old male who returns for followup status post lumbar epidural steroid injection x 1. The patient reports no significant improvement in the pain level. The patient has also recently been to physical therapy, doing some water therapy, but the pain actually worse after both modalities. The patient reports his pain is now 6 on a scale of 10 at its worst over the past week, 4 on average, 2 at its least and is a 4 today. The patient reports it is sharp, dull, shooting, tingling, burning, cramping, constant in the low back, left lower extremity, posterior gluteus, lateral thigh, lateral anterior thigh, medial thigh, posterior calves bilaterally. The patient reports no new motor or sensory deficits, but significant pain is returning him from sleep. The patient reports the pain is at an excruciating level several times a week and most recently one week ago without any increased activity or changes in activity. PHYSICAL EXAMINATION: VITAL SIGNS: The patient's blood pressure is 142/82, pulse 71, respirations 18, temperature is 98.0 degrees Fahrenheit, height 6 feet, weight is 178 pounds. GENERAL: The patient is awake, alert, oriented, appropriate, very pleasant demeanor. HEENT: Shows normocephalic, atraumatic. Extraocular movements are intact and symmetrical. Oral cavity: Mucous membranes moist and pink. Dentition is intact. NECK: Shows anterior throat supple without palpable lymphadenopathy noted. Swallow reflex symmetrical. CHEST: Shows normal on inspection. Breath sounds clear to auscultation bilaterally. HEART: Shows S1, S2 clear. No murmurs auscultated. ABDOMEN: Soft, nontender, nondistended. No palpable organomegaly is noted. No rebound or guarding demonstrated. BACK: Shows spine grossly in the midline. The patient's back shows paraspinous musculature equal section with symmetry and with palpation shows some moderate tenderness bilaterally diffusely in the middle and lower distributions of the lumbar spine without radiation. The patient has good rotational motion of lumbar spine, both laterally as well as extension and flexion without difficulty. Lower extremities show deep tendon reflexes at 2+ in the patellar, 1+ tendo-calcaneus tendons. Motor exam is strong with 5/5 dorsiflexion, extension, quadriceps and hamstring flexion and symmetrical. Peripheral pulses are 1+ posterior tibia. No peripheral edema is noted. Options were discussed with the patient. The patient's old chart was reviewed as his current medication regimen updated. Current review of systems updated today as well. We will proceed with a second in the series of lumbar epidural steroid injection today with fluoroscopic guidance. Risks were again discussed including, but not limited to bleeding, infection, possibility of epidural hematoma, subsequent neurological compromise, dural puncture, headaches, spinal cord and/or nerve damage, side effects of steroid medication and poor results regarding pain control. The patient understands and wished to proceed. The patient will return to clinic in approximately 2 weeks for followup. He was counseled as to return appointment, activity level and side effects to be aware of. DIAGNOSES: Lumbar radiculopathy with lumbar degenerative disk disease, lumbar spinal stenosis. PROCEDURE: Lumbar epidural steroid injection, translaminar approach at the L4-L5 level using C-arm fluoroscopic guidance under sterile prep and drape using local anesthetic. MEDICATION INJECTED: A total of 120 mg Depo-Medrol plus 10 mL of preservative-free normal saline and 2 mL of contrast. CONDITION AT DISCHARGE: Stable. The patient tolerated procedure well, had no complications. The patient will follow up in approximately one week to call with results. If not significantly improved, we will refer for neurosurgical evaluation. TERI SMITH MD DR: ANDREE/bigg JOB#: [id number] / [id number]
== END ==
LOC: PNCL 11:34
PROVIDERS: ATTEND Anesthesiology
DX: M51.16 Intervertebral disc disorders with radiculopathy, lumbar region (principal)
CPT/HCPCS: 62323; J1030; J1040; Q9965

== ENCOUNTER → 2019-08-02 | Outpatient (CLI) | payer MEDICARE ==
[2017-10-02 11:00] VITALS: BP 119/74
[~2019-08-02] MED LIST changes: -IOHEXOL 180 MG/ML 10 ML VIAL. ONE; -methylPREDNISolone ACETATE 40 MG/ML VIAL. ONE; -methylPREDNISolone ACETATE 80 MG/ML VIAL. ONE
--- NOTE | 2019-08-02 12:59 | PAIN ---
DATE OF SERVICE: 08/02/2019 PROGRESS NOTE FOR PAIN CLINIC DIAGNOSES: Lumbar radiculopathy with lumbar degenerative disk disease, lumbar spinal stenosis. HISTORY OF PRESENT ILLNESS: The patient is a 69-year-old male who returns for followup, status post lumbar epidural steroid injection x 2. The patient reports only minimal decrease in pain after the last injection about 10%. The patient had a referral to Neurosurgery for evaluation with Dr. John Amezquita, who is recommending no surgical intervention at this time, is recommending a spinal cord stimulator trial. The patient is interested in this and would like to talk more about it today. The patient reports still significant pain in the low back, left lower extremity, posterior gluteus, posterior thigh, posterior calf into the foot and into the toes, somewhat on the right side in the foot as well. The patient complains of tingling, cramping, sharp, shooting, severe at times, worse with activity, worse with bending, stooping, even with mild weightbearing. The patient relates that he was picking up an empty propane tank this morning, which set the pain off significantly in the left hip and leg, even with minimal activity. The patient reports his pain is a 5 on a scale of 10 at its worst over the past week, 3 on average, 1 at its least and is a 3 today. The patient reports no new motor or sensory deficits, no new bowel or bladder incontinence. Reports it is better with sitting or lying down, but does awaken him from sleep, but only about once every 7-8 hours. PHYSICAL EXAMINATION: VITAL SIGNS: The patient's blood pressure 119/77, pulse 63, respirations 18, temperature 98.3 degrees Fahrenheit, weight is 171 pounds. GENERAL: The patient is awake, alert, oriented, appropriate, very pleasant demeanor. HEENT: Shows normocephalic, atraumatic. Extraocular movements are intact and symmetrical. Oral cavity: Mucous membranes moist and pink. Dentition is intact. NECK: Shows anterior throat supple without palpable lymphadenopathy noted. Swallow reflex symmetrical. CHEST: Shows normal on inspection. Breath sounds are clear bilaterally. HEART: Shows S1, S2 clear. No murmurs auscultated. ABDOMEN: Soft, nontender, and nondistended. BACK: Shows spine grossly in the midline. Lumbar paraspinous muscle shows symmetrical on inspection, on palpation shows some moderate tenderness diffusely bilaterally going diffusely without significant radiation. EXTREMITIES: The patient's lower extremities show deep tendon reflexes at 2+ in the patellar, 1+ tendo-calcaneus tendons. Motor exam remains strong with 5/5 dorsiflexion and extension bilaterally. Peripheral pulses are 1+ posterior tibia. No peripheral edema is noted. Options were discussed with the patient. The patient's old chart was reviewed as his current medication regimen updated. Current review of systems updated today as well. We will set up the patient for a spinal cord stimulator trial temporary leads placement. The patient will have a psychological evaluation first and would like to proceed with this and this was given as information. We talked extensively about the procedure itself using anatomical models to describe the procedure as well. The patient is interested in pursuing this once psychiatric evaluation is obtained. We will move forward with preauthorization for a spinal cord stimulator temporary leads placement. TERI SMITH MD DR: ANDREE/bigg JOB#: [id number] / [id number]
== END | disposition home or self-care (01) ==
LOC: PNCL 11:08
PROVIDERS: ATTEND Anesthesiology
DX: M51.16 Intervertebral disc disorders with radiculopathy, lumbar region (principal); M48.061 Spinal stenosis, lumbar region without neurogenic claudication
CPT/HCPCS: G0463

== ENCOUNTER → 2019-08-30 | Outpatient (CLI) | payer MEDICARE ==
[2017-10-02 11:00] VITALS: BP 119/74
[~2019-08-30] MED LIST changes: +LIDOCAINE 1% PF 2 ML VIAL. ONE
--- NOTE | 2019-08-30 17:58 | PAIN ---
DATE OF SERVICE: 08/30/2019 PROGRESS NOTE FOR PAIN CLINIC DIAGNOSES: Lumbar radiculopathy with lumbar degenerative disk disease and lumbar spinal stenosis. HISTORY OF PRESENT ILLNESS: The patient is a 69-year-old male who returns for followup status post preauthorization and evaluation with psychology for a spinal cord stimulator temporary leads placement. The patient has done well with this, is a good category for spinal cord stimulator placement and would like to proceed. Still reports pain in the low back, left lower extremity, posterior gluteus, posterolateral thigh, posterior calf and lateral calf on the left side as well as left foot. The patient reports it is tingling, burning, cramping, aching, sharp, on and off in intensity, rated as a 6 on a scale of 10 at its worst over the past week, 3 on average, 1 at its least and is a 3 today. The patient reports no new motor or sensory deficits, no new bowel or bladder incontinence or other complaints, but still wakes him from sleep at night about every 8 hours or so. The patient reports no changes. PHYSICAL EXAMINATION: VITAL SIGNS: The patient's blood pressure 138/87, pulse 61, respirations 18, temperature 98.6 degrees Fahrenheit. Height is 6 feet, weight is 172 pounds. GENERAL: The patient is awake, alert, oriented, appropriate, very pleasant demeanor. HEENT: Head shows normocephalic, atraumatic. Extraocular movements are intact and symmetrical. Oral cavity: Mucous membranes moist and pink. Dentition is intact. NECK: Shows anterior throat is supple without palpable lymphadenopathy noted. Swallow reflex symmetrical. CHEST: Shows normal on inspection. Breath sounds are clear bilaterally. HEART: Shows S1, S2 clear. No murmurs auscultated. ABDOMEN: Soft, nontender. BACK: Shows spine grossly in the midline. Lumbar paraspinous muscle shows symmetrical on inspection, with palpation shows some moderate tenderness diffusely bilaterally, going diffusely without significant radiation. The patient has good rotational motion of lumbar spine without difficulty. EXTREMITIES: Lower extremities show deep tendon reflexes 2+ in the patellar, 1+ tendo-calcaneus tendons. Motor exam is 5/5 with dorsiflexion, extension, quadriceps and hamstring flexion and symmetrical. Peripheral pulses are 1+ posterior tibia. No peripheral edema is noted bilaterally. PLAN: Options were discussed with the patient. The patient's old chart was reviewed as his current medication regimen updated. Current review of systems updated today as well. We will proceed with a spinal cord stimulator temporary lead placement x 2 today with fluoroscopic guidance. Risks were again discussed including, but not limited to bleeding, infection, possibility of epidural hematoma, subsequent neurologic compromise, dural puncture, headaches, spinal cord and/or nerve damage as well as poor results regarding pain control. The patient understands and wished to proceed. The patient will return to the clinic in approximately 1 week followup and removal of temporary leads and reevaluated the situation at that time. TERI SMITH MD DR: ANDREE/bigg JOB#: [id number] / [id number]
--- NOTE | 2019-08-30 18:08 | PAIN ---
DATE OF SERVICE: 08/30/2019 DIAGNOSES: Lumbar radiculopathy with lumbar degenerative disk disease and lumbar spinal stenosis. PROCEDURE: Temporary spinal cord stimulator lead placement x 2 using C-arm fluoroscopic guidance under sterile prep and drape using local anesthetic. MEDICATION INJECTED: A topical local anesthetic 1% lidocaine. DESCRIPTION OF PROCEDURE: The patient's spinal canal was identified and externally marked to the T8 level under direct fluoroscopic guidance using 14-gauge [employer] needle with stylet x 2. Epidural space was entered at the L3-L4 space in the midline with good preservative-free normal saline loss of resistance technique. Negative aspiration was maintained. Spinal cord stimulator leads were placed first to rest in the midline and posterior at the superior endplate of the proximal part of the lead at T8 and the second at the superior endplate of T9, also posterior and midline confirmed with lateral fluoroscopic views. The patient tolerated the procedure well, had no complications. He will return in 1 week for removal and reassessment at that time. TERI SMITH MD DR: ANDREE/bigg JOB#: [id number] / [id number]
== END ==
LOC: PNCL 13:08
PROVIDERS: ATTEND Anesthesiology
DX: M51.16 Intervertebral disc disorders with radiculopathy, lumbar region (principal); M48.061 Spinal stenosis, lumbar region without neurogenic claudication
CPT/HCPCS: 63650; C1897

== ENCOUNTER → 2019-09-06 | Outpatient (CLI) | payer MEDICARE ==
[2017-10-02 11:00] VITALS: BP 119/74
[~2019-09-06] MED LIST changes: -LIDOCAINE 1% PF 2 ML VIAL. ONE
--- NOTE | 2019-09-06 23:42 | PAIN ---
DATE OF SERVICE: 09/06/2019 PROGRESS NOTE FOR PAIN CLINIC DIAGNOSES: Lumbar radiculopathy with lumbar degenerative disk disease and lumbar spinal stenosis. HISTORY OF PRESENT ILLNESS: The patient is a 69-year-old male who returns for followup status post spinal cord stimulator temporary lead placement 1 week ago. 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 The patient reports about 80-90% and one day, he had no pain for about a half a day in the back or the legs and was very pleased with this, but the pain then returned again much below baseline. The patient is estimating at least 50% in the leg and 89% in the back improvement. The patient reports this is a 5 on a scale of 10 at its worst over the past week, 3 on average, 0 at its least and is a 3 today. The patient reports it is sharp and dull, alternating in the back, tingling in the leg, constant in the low back, but much reduced in intensity. The patient reports no new motor or sensory deficits. No new changes. PHYSICAL EXAMINATION: VITAL SIGNS: The patient's blood pressure is 136/81, pulse 55, respirations 16, temperature 98.0 degrees Fahrenheit. GENERAL: The patient is awake, alert, oriented, appropriate, very pleasant demeanor. HEENT: Shows normocephalic, atraumatic. The patient wears eyeglasses. Extraocular movements are intact, symmetrical. CHEST: Shows normal on inspection. Breath sounds are clear. HEART: Shows S1, S2 clear. BACK: Shows spine grossly in the midline. The patient's bandages were taken down in the lumbar distribution revealing very clean, dry, nonerythematous, no drainage at site of insertion of the spinal cord stimulator leads. Under sterile prep and technique, the sutures were removed. The stimulator leads were removed x 2 with tips intact. Site was clean and dry, no erythema, no drainage and was sterilely bandaged as well. DISCUSSION: Options were discussed with the patient. The patient's old chart was reviewed as his current medication regimen updated. Current review of systems updated today as well. We will have the patient consider whether or not to pursue a permanent implantation if he did fairly well, but not to his expectations completely, but the pain in the leg, pain fairly persistent on the left side. He would like to consider potential permanent implantation. We will have him take some time and contact our office if he decides to do this one way or the other. The patient understands and agrees and will follow up as scheduled. TERI SMITH MD DR: ANDREE/bigg JOB#: [id number] / [id number]
== END | disposition home or self-care (01) ==
LOC: PNCL 13:13
PROVIDERS: ATTEND Anesthesiology
DX: M51.16 Intervertebral disc disorders with radiculopathy, lumbar region (principal); M48.061 Spinal stenosis, lumbar region without neurogenic claudication
CPT/HCPCS: G0463

== ENCOUNTER → 2020-04-01 | Outpatient (CLI) | payer MEDICARE ==
[2017-10-02 11:00] VITALS: BP 119/74
--- NOTE | 2020-04-01 11:32 | KCIC ---
LUMBAR SPINE WO CONTRAST Date: 04/01/2020 10:11 AM Indication: SCIATICA. Worsening lower back pain and now bilateral scitica. No surgical hx. Comparison: 04/27/2019. Technique: Multi-planar multi-weighted magnetic resonance imaging of the lumbar spine was performed without intravenous contrast using the standard lumbar spine protocol. FINDINGS: Unchanged trace retrolisthesis at L4-5. No acute fracture. Mild multilevel degenerative disc desiccation and disc height loss. Degenerative endplate edema at L4-5 on the right slightly improved from the prior exam. The conus terminates at a normal level. No abnormal signal is seen within the visualized distal spinal cord. No clumping of intrathecal nerve roots. No soft tissue abnormality in the visualized abdomen or pelvis. T12-L1: No disc bulge. No facet arthropathy. No significant spinal stenosis or neural foraminal narrowing. L1-L2: No disc bulge. No facet arthropathy. No significant spinal stenosis or neural foraminal narrowing. L2-L3: No disc bulge. No facet arthropathy. No significant spinal stenosis or neural foraminal narrowing. L3-L4: Disc bulge. Mild facet arthropathy. No significant spinal stenosis. Mild left lateral recess narrowing. Mild left neural foraminal narrowing. L4-L5: Disc bulge with annular tear and right lateral protrusion which abuts the exiting right L4 nerve root. Moderate facet arthropathy. Ligamentum flavum thickening. Mild to moderate spinal stenosis. Moderate lateral recess narrowing. Moderate to severe right and mild left neural foraminal narrowing. L5-S1: Disc bulge with annular tear and left foraminal/far lateral protrusion which abuts the exiting left L5 nerve root. Mild facet arthropathy. No spinal stenosis. Mild left lateral recess narrowing. Severe right and mild left neural foraminal narrowing. IMPRESSION: Lumbar spondylosis as detailed above. Degenerative changes have not significantly progressed from the prior exam. Electronically signed by: Dwaine Juárez MD (04/01/2020 11:30 AM) [id number]
== END ==
LOC: KCIC MRI 09:19
PROVIDERS: ATTEND Family Medicine
DX: M47.817 Spondylosis without myelopathy or radiculopathy, lumbosacral region (principal); M48.061 Spinal stenosis, lumbar region without neurogenic claudication
CPT/HCPCS: 72148